=== PATIENT | male | born 1940 | race African-American/Black ===

== ENCOUNTER 2019-09-28 18:50 | Emergency (ER) | payer MEDICARE ==
[2019-09-28 20:09] LABS: Hematocrit 40.4 % (35.5-45.6); Hemoglobin 13.8 gm/dl (11.8-15.2); Mean Corpuscular HGB Conc 34 % (32-34); Mean Corpuscular Volume 84 fl (84-94); Platelet Count 153 K/mm3 (140-440); Red Blood Count 4.83 M/mm3 (3.65-5.03); Red Cell Distribution Width 14.4 % (13.2-15.2)
[2019-09-28 20:25] LABS: BUN/Creatinine Ratio 17; Blood Urea Nitrogen 12 mg/dL (9-20); Calcium 8.9 mg/dL (8.4-10.2); Hemolysis Index 20
[2019-09-28 21:02] LABS: Basophils % (Manual) 0 % (0.0-1.8); RBC Morphology Normal; Total Cells Counted 100
[2019-09-28 21:09] VITALS: BP 221/98
--- NOTE | 2019-09-28 21:09 | Emergency Department Report ---
ED Altered Mental Status HPI - General Chief Complaint: Altered Mental Status Stated Complaint: AMS Time Seen by Provider: 09/28/19 19:24 Source: EMS Mode of arrival: Stretcher Limitations: Altered Mental Status, Other - History of Present Illness Initial Comments: Patient is a 79-year-old gentleman with a history of Alzheimer's who lastly found wandering in the neighborhood by police. Patient had no ID on him at the time and was unable to speak to the police. Patient would not communicate. A [place] roller printing supervisor was attempted and the transverse stated they they could not understand what the patient was saying and status of the patient was is babbling. Patient's cannot give any additional history. - Related Data Allergies Allergy/AdvReac Type Severity Reaction Status Date / Time Unable to Assess Allergy Unverified 09/28/19 19:03 ED Review of Systems ROS: Stated complaint: AMS Other details as noted in HPI Comment: Unobtainable due to pts medical conditions ED Past Medical Hx - Past Medical History Additional medical history: SYDNEE - Surgical History Additional Surgical History: SYDNEE - Social History Smoking Status: Unknown if ever smoked ED Physical Exam - General Limitations: Altered Mental Status, Other General appearance: alert, in no apparent distress - Head Head exam: Present: atraumatic, normocephalic - Eye Eye exam: Present: normal appearance, PERRL, EOMI - ENT ENT exam: Present: mucous membranes moist - Neck Neck exam: Present: normal inspection - Respiratory Respiratory exam: Present: normal lung sounds bilaterally. Absent: respiratory distress, wheezes, rales, rhonchi - Cardiovascular Cardiovascular Exam: Present: regular rate, normal rhythm. Absent: systolic murmur, diastolic murmur, rubs, gallop - GI/Abdominal GI/Abdominal exam: Present: soft, normal bowel sounds. Absent: distended, tenderness, guarding - Rectal Rectal exam: Present: deferred - Extremities Exam Extremities exam: Present: normal inspection - Back Exam Back exam: Present: normal inspection - Neurological Exam Neurological exam: Present: alert, oriented X3, CN II-XII intact, normal gait. Absent: motor sensory deficit - Psychiatric Psychiatric exam: Present: normal affect, normal mood - Skin Skin exam: Present: warm, dry, intact, normal color. Absent: rash - Lab Data Result diagrams: 09/28/19 19:52 09/28/19 19:52 Lab Results 09/28/19 09/28/19 09/28/19 Range/Units 19:52 19:52 19:52 WBC 4.7 (4.5-11.0) K/mm3 RBC 4.83 (3.65-5.03) M/mm3 Hgb 13.8 (11.8-15.2) gm/dl Hct 40.4 (35.5-45.6) % MCV 84 (84-94) fl MCH 29 (28-32) pg MCHC 34 (32-34) % RDW 14.4 (13.2-15.2) % Plt Count 153 (140-440) K/mm3 Baker % (Auto) [place] Fancier Add Manual Diff Complete Total Counted 100 Seg Neuts % (Manual) 51.0 (40.0-70.0) % Band Neutrophils % 0 % Lymphocytes % (Manual) 28.0 (13.4-35.0) % Reactive Lymphs % (Man) 0 % Monocytes % (Manual) 20.0 H (0.0-7.3) % Eosinophils % (Manual) 1.0 (0.0-4.3) % Basophils % (Manual) 0 (0.0-1.8) % Metamyelocytes % 0 % Myelocytes % 0 % Promyelocytes % 0 % Blast Cells % 0 % Nucleated RBC % Not Reportable Seg Neutrophils # Man 2.4 (1.8-7.7) K/mm3 Band Neutrophils # 0.0 K/mm3 Lymphocytes # (Manual) 1.3 (1.2-5.4) K/mm3 Abs React Lymphs (Man) 0.0 K/mm3 Monocytes # (Manual) 0.9 H (0.0-0.8) K/mm3 Eosinophils # (Manual) 0.0 (0.0-0.4) K/mm3 Basophils # (Manual) 0.0 (0.0-0.1) K/mm3 Metamyelocytes # 0.0 K/mm3 Myelocytes # 0.0 K/mm3 Promyelocytes # 0.0 K/mm3 Blast Cells # 0.0 K/mm3 WBC Morphology Not Reportable Hypersegmented Neuts Not Reportable Hyposegmented Neuts Not Reportable Hypogranular Neuts Not Reportable Smudge Cells Not Reportable Toxic Granulation Not Reportable Toxic Vacuolation Not Reportable Dohle Bodies Not Reportable Pelger-Huet Anomaly Not Reportable Daniel Rods Not Reportable Platelet Estimate Not Reportable Clumped Platelets Not Reportable Plt Clumps, EDTA Not Reportable Large Platelets Not Reportable Giant Platelets Not Reportable Platelet Satelliting Not Reportable Plt Morphology Comment Not Reportable RBC Morphology Normal Dimorphic RBCs Not Reportable Polychromasia Not Reportable Hypochromasia Not Reportable Poikilocytosis Not Reportable Anisocytosis Not Reportable Microcytosis Not Reportable Macrocytosis Not Reportable Spherocytes Not Reportable Pappenheimer Bodies Not Reportable Sickle Cells Not Reportable Target Cells Not Reportable Tear Drop Cells Not Reportable Ovalocytes Not Reportable Helmet Cells Not Reportable [place] Bodies Not Reportable [place] Rings Not Reportable [place] Cells Not Reportable Bite Cells Not Reportable Crenated Cell Not Reportable Elliptocytes Not Reportable Acanthocytes (Spur) Not Reportable Rouleaux Not Reportable Hemoglobin C Crystals Not Reportable Schistocytes Not Reportable Malaria parasites Not Reportable Arik Bodies Not Reportable Hem Pathologist Commnt No Sodium 137 (137-145) mmol/L Potassium 3.6 (3.6-5.0) mmol/L Chloride 101.0 (98-107) mmol/L Carbon Dioxide 23 (22-30) mmol/L Anion Gap 17 mmol/L BUN 12 (9-20) mg/dL Creatinine 0.7 L (0.8-1.5) mg/dL Estimated GFR > 60 ml/min BUN/Creatinine Ratio 17 % Glucose 119 H (75-100) mg/dL Calcium 8.9 (8.4-10.2) mg/dL Salicylates < 0.3 L (2.8-20.0) mg/dL Acetaminophen (10.0-30.0) ug/mL Plasma/Serum Alcohol (0-0.07) % 09/28/19 09/28/19 Range/Units 19:52 19:52 WBC (4.5-11.0) K/mm3 RBC (3.65-5.03) M/mm3 Hgb (11.8-15.2) gm/dl Hct (35.5-45.6) % MCV (84-94) fl MCH (28-32) pg MCHC (32-34) % RDW (13.2-15.2) % Plt Count (140-440) K/mm3 Baker % (Auto) Add Manual Diff Total Counted Seg Neuts % (Manual) (40.0-70.0) % Band Neutrophils % % Lymphocytes % (Manual) (13.4-35.0) % Reactive Lymphs % (Man) % Monocytes % (Manual) (0.0-7.3) % Eosinophils % (Manual) (0.0-4.3) % Basophils % (Manual) (0.0-1.8) % Metamyelocytes % % Myelocytes % % Promyelocytes % % Blast Cells % % Nucleated RBC % Seg Neutrophils # Man (1.8-7.7) K/mm3 Band Neutrophils # K/mm3 Lymphocytes # (Manual) (1.2-5.4) K/mm3 Abs React Lymphs (Man) K/mm3 Monocytes # (Manual) (0.0-0.8) K/mm3 Eosinophils # (Manual) (0.0-0.4) K/mm3 Basophils # (Manual) (0.0-0.1) K/mm3 Metamyelocytes # K/mm3 Myelocytes # K/mm3 Promyelocytes # K/mm3 Blast Cells # K/mm3 WBC Morphology Hypersegmented Neuts Hyposegmented Neuts Hypogranular Neuts Smudge Cells Toxic Granulation Toxic Vacuolation Dohle Bodies Pelger-Huet Anomaly Daniel Rods Platelet Estimate Clumped Platelets Plt Clumps, EDTA Large Platelets Giant Platelets Platelet Satelliting Plt Morphology Comment RBC Morphology Dimorphic RBCs Polychromasia Hypochromasia Poikilocytosis Anisocytosis Microcytosis Macrocytosis Spherocytes Pappenheimer Bodies Sickle Cells Target Cells Tear Drop Cells Ovalocytes Helmet Cells [place] Bodies [place] Rings [place] Cells Bite Cells Crenated Cell Elliptocytes Acanthocytes (Spur) Rouleaux Hemoglobin C Crystals Schistocytes Malaria parasites Arik Bodies Hem Pathologist Commnt Sodium (137-145) mmol/L Potassium (3.6-5.0) mmol/L Chloride (98-107) mmol/L Carbon Dioxide (22-30) mmol/L Anion Gap mmol/L BUN (9-20) mg/dL Creatinine (0.8-1.5) mg/dL Estimated GFR ml/min BUN/Creatinine Ratio % Glucose (75-100) mg/dL Calcium (8.4-10.2) mg/dL Salicylates (2.8-20.0) mg/dL Acetaminophen < 5.0 L (10.0-30.0) ug/mL Plasma/Serum Alcohol < 0.01 (0-0.07) % - Medical Decision Making Patient's family called police stated they were looking for a missing persons. A missing person for description of the gentleman was brought in by police to our emergency department. The family arrived and confirmed that they have been looking for the patient for the last 3-4 hours. Patient has severe dementia and had wandered off and was missing. Patient according to family is at his current state of behavior at this time and the patient can be discharged home in the custody of his family. Critical care attestation.: If time is entered above; I have spent that time in minutes in the direct care of this critically ill patient, excluding procedure time. 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
== END 2019-09-28 21:25 | disposition home or self-care (01) ==
LOC: EDBD 18:50 → ED 18:50
DX: G30.9 Alzheimer's disease, unspecified (principal); F02.80 Dementia in other diseases classified elsewhere, unspecified severity, without behavioral disturbance, psychotic disturbance, mood disturbance, and anxiety
CPT/HCPCS: 36415; 80048; 80320; 85007; 85025; G0480

== ENCOUNTER 2021-05-26 16:55 | Inpatient (IN) | payer MEDICARE, SELFPAY ==
[2021-05-26] MEDS ORDERED: MINERAL OIL/PETROLATUM, WHITE OPHTH OINT 3.5 GM OU PRN (17:02)
[2021-05-26] MEDS ORDERED: LIP THERAPY VASELINE TP PRN (17:02)
[2021-05-26] MEDS ORDERED: CEFEPIME/NS 2 GM/100 ML 2 GM/100 ML BAG IV ONE (17:02)
[2021-05-26] MEDS ORDERED: SODIUM CHLORIDE 0.9% 1000 ML IV SOLN IV ONE (17:02)
[2021-05-26] MEDS ORDERED: dexAMETHasone 4 MG/ML VIAL IV ONE (17:07)
--- NOTE | 2021-05-26 17:08 | Emergency Department Report ---
ED General Adult HPI - General Chief complaint: Altered Mental Status Stated complaint: Patient nonverbal, receiving assisted ventilation PUI?: Yes Time Seen by Provider: 05/26/21 17:01 Source: EMS (Verbal report received from emergency medical services. EMS documentation not available at time of chart dictation ), RN notes reviewed, old records reviewed Mode of arrival: Stretcher Limitations: Altered Mental Status, Physical Limitation - History of Present Illness Initial comments: The patient was evaluated in the emergency department for symptoms described in the history of present illness. He/she was evaluated in the context of the global COVID-19 pandemic, which necessitated consideration that the patient might be at risk for infection with the virus that causes COVID-19. Institutional protocols and algorithms that pertain to the evaluation of patients at risk for COVID-19 are in a state of rapid change based on information released by regulatory bodies including the CDC and federal and state organizations. These policies and algorithms were followed during the patient's care in the emergency department. Please note that these policies, procedures and recommendations changed on a rapid basis. The patient is an 81-year-old gentleman. He is not known to myself previously. He apparently has a history of hypertension and dementia. He is brought to the hospital by emergency medical services with a complaint of altered mental status. His last known well time is not explicitly known. EMS reports normal Accu-Chek. EMS reports patient found in bed. EMS reports the patient was minimally responsive in the field, they placed a nasopharyngeal airway, and bag ventilation. Upon arrival to this emergency room, the patient is hypoxic, breathing agonally. He is not accompanied by friends or family for collateral information. EMS also indicated that advanced directives are not known. The patient was placed on a school lunch monitor, IV access established, and simultaneously, receives [id number] ventilation. He is intubated using rapid sequence induction techniques. Please see procedure note. He is found to be febrile with a rectal temperature of 102 degrees and is tachycardic. A code sepsis was called overhead. Aggressive IV fluids, empiric steroids, vancomycin, and cefepime ordered. Nasogastric tube ordered, Cast catheter ordered. The patient is currently intubated, sedated on a ventilator. He is not currently accompanied by friends or family at this time for additional info rmation or collateral information. The patient is acutely altered and encephalopathic, and he is therefore not able to describe the qualitative nature of his symptoms, exacerbating factors, relieving factors, or aggravating factors. -: unknown - Related Data Home Medications Medication Instructions Recorded Confirmed Last Taken No Known Home Medications [No 05/26/21 05/26/21 Unknown Reported Home Medications] Allergies Allergy/AdvReac Type Severity Reaction Status Date / Time No Known Allergies Allergy Unverified 05/26/21 18:11 ED Review of Systems ROS: Stated complaint: RESPIRATORY DISTRESS Other details as noted in HPI Comment: Unobtainable due to pts medical conditions ED Past Medical Hx - Past Medical History Additional medical history: SYDNEE - Surgical History Additional Surgical History: SYDNEE - Social History Smoking Status: Unknown if ever smoked - Medications Home Medications: Home Medications Medication Instructions Recorded Confirmed Last Taken Type No Known Home Medications [No 05/26/21 05/26/21 Unknown History Reported Home Medications] ED Physical Exam - General Limitations: Altered Mental Status General appearance: obtunded - Head Head exam: Present: atraumatic, normocephalic - Eye Eye exam: Present: normal appearance - ENT ENT exam: Present: normal orophraynx, mucous membranes dry, normal external ear exam - Neck Neck exam: Present: normal inspection. Absent: tenderness, meningismus - Respiratory Respiratory exam: Present: respiratory distress, rales - Cardiovascular Cardiovascular Exam: Present: normal rhythm, tachycardia, normal heart sounds. Absent: bradycardia, irregular rhythm, systolic murmur, diastolic murmur, rubs, gallop - GI/Abdominal GI/Abdominal exam: Present: soft. Absent: distended, tenderness, guarding, rebound, rigid, pulsatile mass - Rectal Rectal exam: Present: normal inspection - exam: Present: normal inspection. Absent: circumcision (Patient is uncircumcised) External exam: Present: normal external exam - Extremities Exam Extremities exam: Present: other (2+ femoral pulses bilaterally. 2+ radial pulses bilaterally.). Absent: normal inspection (Bilateral lower extremities show distal mottling) - Back Exam Back exam: Present: normal inspection. Absent: tenderness, CVA tenderness (R), CVA tenderness (L), paraspinal tenderness, vertebral tenderness - Neurological Exam Neurological exam: Present: altered (Nonverbal, GCS of 3) - Skin Skin exam: Present: warm, dry, intact, other (Mottling noted of bilateral lower extremities.) ED Course Vital Signs 05/26/21 05/26/21 05/26/21 17:00 17:10 17:16 Temperature 102.8 F H Pulse Rate 118 H 119 H 117 H Respiratory 20 Rate Blood Pressure 203/95 203/95 Blood Pressure 203/95 [Left] O2 Sat by Pulse 100 100 100 Oximetry 05/26/21 05/26/21 05/26/21 17:30 17:46 18:00 Temperature Pulse Rate 117 H 112 H 111 H Respiratory Rate Blood Pressure 178/91 167/84 158/81 Blood Pressure [Left] O2 Sat by Pulse 100 100 100 Oximetry 05/26/21 05/26/21 05/26/21 19:00 19:16 19:30 Temperature Pulse Rate 108 H 106 H 107 H Respiratory 18 Rate Blood Pressure 160/87 162/84 170/87 Blood Pressure 160/87 [Left] O2 Sat by Pulse 99 99 99 Oximetry 05/26/21 05/26/21 05/26/21 19:39 20:04 20:16 Temperature Pulse Rate 104 H 101 H 104 H Respiratory 12 20 Rate Blood Pressure 170/87 199/90 Blood Pressure [Left] O2 Sat by Pulse 100 100 95 Oximetry 05/26/21 05/26/21 05/26/21 20:30 20:46 20:50 Temperature 98.3 F Pulse Rate 106 H 101 H Respiratory 20 20 Rate Blood Pressure 188/83 170/87 Blood Pressure [Left] O2 Sat by Pulse 95 95 Oximetry 05/26/21 05/26/21 05/26/21 21:00 21:16 21:29 Temperature Pulse Rate 99 H 99 H Respiratory 19 21 18 Rate Blood Pressure 140/82 141/78 Blood Pressure [Left] O2 Sat by Pulse 96 96 Oximetry 05/26/21 05/26/21 05/26/21 21:30 21:46 22:00 Temperature Pulse Rate 100 H 101 H 102 H Respiratory 20 24 24 Rate Blood Pressure 137/80 138/80 139/76 Blood Pressure [Left] O2 Sat by Pulse 96 96 97 Oximetry 05/26/21 22:16 Temperature Pulse Rate 103 H Respiratory 21 Rate Blood Pressure 143/82 Blood Pressure [Left] O2 Sat by Pulse 97 Oximetry - Reevaluation(s) Reevaluation #1: 05/26/21 18:36 Differential diagnosis, including but not limited to: Bacteremia, viremia, pneumonia, urinary tract infection, COVID-19, intra-abdominal infection, toxic encephalopathy, metabolic encephalopathy, multifocal encephalopathy Assessment and plan: 81-year-old gentleman, presenting with altered mental status, requiring intubation, fever, pyuria, hypernatremia, lactic acidosis, thrombocytopenia, renal insufficiency. Maintain patient on ventilator strategy. Decrease FiO2 to 30/40% given initial PaO2 of greater than 400. Aggressive IV fluids for presumed volume depletion, empiric steroids, antibiotics, initiate contact precautions. Admit the patient to the ICU once initial diagnostics have resulted. Obtain CT scan of the brain, chest, abdomen and pelvis. Would not perform spinal tap given thrombocytopenia. Contacted nephrology on-call, Dr. Shin Monzon Have discussed the patient's history, physical, laboratory studies and imaging studies. He will follow in consultation. He will place his own orders for maintenance fluids. Advises no hemodialysis at this time. Contacted critical care physician on-call, Dr. Doug Toro We discussed the patient's history, physical, laboratory studies, pertinent imaging studies, and plan of care. He agrees to placement into the intensive care unit. We will admit this patient to the hospital service once his initial diagnostics have resulted. 05/26/21 18:39 Elevated troponin is likely a type II troponin leak. Laboratory studies were ordered to risk stratify for Covid symptomatology, and cytokine storm. Defer to inpatient team to further manage these once initial diagnostics have resulted. 05/26/21 21:17 Family presented to this emergency room. They state patient received 1 Covid vaccination, and they believe [place], a few months ago. The patient lives by himself and his elderly . Family further reports that last known well time was approximately 3 days ago. Extensive discussion had with family regarding current diagnostics, clinical impression, and overall plan of care. They have articulated understanding. CT scan of the brain negative for acute findings. CT scan chest, abdomen pelvis pending interpretation. 05/26/21 21:59 CT scan of the chest abdomen pelvis suggest pneumonia. No other significant findings noted. This is consistent with overall clinical impression. - Intubation Time Out Performed: No (Emergency situation) Sedative: Etomidate Mg Given: 20 Paralytic: Rocuronium Mg Given: 100 Laryngoscope: fiberoptic video scope Size: 3 Assist Device Used: fiberoptic device ET Tube Size: 7.5 Tube Secured Depth (cm): 22 Tube Secured Location: lips Tube Placement Confirmation: visualized tube passing t, equal breath sounds bilat, no breath sounds over epi, confirmation by capnometr Patient Tolerated Procedure: well Intubation Complications: none ED Medical Decision Making - Lab Data Result diagrams: 05/26/21 17:08 05/26/21 17:08 Vital Signs 05/26/21 05/26/21 05/26/21 17:00 17:10 17:16 Temperature 102.8 F H Pulse Rate 118 H 119 H 117 H Respiratory 20 Rate Blood Pressure 203/95 203/95 Blood Pressure 203/95 [Left] O2 Sat by Pulse 100 100 100 Oximetry 05/26/21 05/26/21 05/26/21 17:30 17:46 18:00 Temperature Pulse Rate 117 H 112 H 111 H Respiratory Rate Blood Pressure 178/91 167/84 158/81 Blood Pressure [Left] O2 Sat by Pulse 100 100 100 Oximetry Labs 05/26/21 05/26/21 05/26/21 17:00 17:08 17:08 WBC 9.8 RBC 4.33 Hgb 11.9 Hct 38.0 MCV 88 MCH 28 MCHC 31 L RDW 16.2 H Plt Count 80 L Lymph % (Auto) 30.3 Coke % (Auto) 6.1 Eos % (Auto) 1.0 Baso % (Auto) 0.5 Lymph # (Auto) 3.0 Coke # (Auto) 0.6 Eos # (Auto) 0.1 Baso # (Auto) 0.1 Seg Neutrophils % 62.1 Seg Neutrophils # 6.1 APTT 42.4 H D-Dimer 8255.81 H ABG pH POC ABG pCO2 POC ABG pO2 POC ABG HCO3 ABG O2 Saturation POC ABG Base Excess ABG Hemoglobin ABG Oxyhemoglobin ABG Methemoglobin ABG Sodium ABG Potassium ABG Glucose Carboxyhemoglobin FiO2 % Sodium Potassium Chloride Carbon Dioxide Anion Gap BUN Creatinine Estimated GFR BUN/Creatinine Ratio Glucose Lactic Acid Calcium Ferritin Total Bilirubin AST ALT Alkaline Phosphatase Ammonia Lactate Dehydrogenase Troponin T C-Reactive Protein Total Protein Albumin Albumin/Globulin Ratio Triglycerides Cholesterol LDL Cholesterol Direct HDL Cholesterol Cholesterol/HDL Ratio TSH Arterial Blood Glucose Urine Color Urine Turbidity Urine pH Ur Specific [place] Urine Protein Urine Glucose (UA) Urine Ketones Urine Blood Urine Nitrite Urine Bilirubin Urine Urobilinogen Ur Leukocyte Esterase Urine WBC (Auto) Urine RBC (Auto) Urine Bacteria (Auto) Salicylates Acetaminophen Blood Type O POSITIVE 05/26/21 05/26/21 05/26/21 17:08 17:08 17:08 WBC RBC Hgb Hct MCV MCH MCHC RDW Plt Count Lymph % (Auto) Coke % (Auto) Eos % (Auto) Baso % (Auto) Lymph # (Auto) [place]ke # (Auto) Eos # (Auto) Baso # (Auto) Seg Neutrophils % Seg Neutrophils # APTT D-Dimer ABG pH POC ABG pCO2 POC ABG pO2 POC ABG HCO3 ABG O2 Saturation POC ABG Base Excess ABG Hemoglobin ABG Oxyhemoglobin ABG Methemoglobin ABG Sodium ABG Potassium ABG Glucose Carboxyhemoglobin FiO2 % Sodium 180 H* Potassium 3.8 Chloride 140 H Carbon Dioxide 21 L Anion Gap 23 BUN 118 H Creatinine 5.4 H Estimated GFR 10 BUN/Creatinine Ratio 22 Glucose 133 H Lactic Acid 3.90 H* Calcium 8.1 L Ferritin 598.3 H Total Bilirubin 0.40 AST 97 H ALT 71 H Alkaline Phosphatase 138 H Ammonia Lactate Dehydrogenase 550 H Troponin T 0.038 H C-Reactive Protein 4.20 H Total Protein 7.0 Albumin 3.3 L Albumin/Globulin Ratio 0.9 Triglycerides 150 H Cholesterol 145 LDL Cholesterol Direct 84 HDL Cholesterol 24 L Cholesterol/HDL Ratio 6.04 TSH Arterial Blood Glucose Urine Color Urine Turbidity Urine pH Ur Specific [place] Urine Protein Urine Glucose (UA) Urine Ketones Urine Blood Urine Nitrite Urine Bilirubin Urine Urobilinogen Ur Leukocyte Esterase Urine WBC (Auto) Urine RBC (Auto) Urine Bacteria (Auto) Salicylates Acetaminophen Blood Type 05/26/21 05/26/21 05/26/21 17:08 17:08 17:08 WBC RBC Hgb Hct MCV MCH MCHC RDW Plt Count Lymph % (Auto) [place] % (Auto) Eos % (Auto) Baso % (Auto) Lymph # (Auto) [place] # (Auto) Eos # (Auto) Baso # (Auto) Seg Neutrophils % Seg Neutrophils # APTT D-Dimer ABG pH POC ABG pCO2 POC ABG pO2 POC ABG HCO3 ABG O2 Saturation POC ABG Base Excess ABG Hemoglobin ABG Oxyhemoglobin ABG Methemoglobin ABG Sodium ABG Potassium ABG Glucose Carboxyhemoglobin FiO2 % Sodium Potassium Chloride Carbon Dioxide Anion Gap BUN Creatinine Estimated GFR BUN/Creatinine Ratio Glucose Lactic Acid Calcium Ferritin Total Bilirubin AST ALT Alkaline Phosphatase Ammonia 46.0 Lactate Dehydrogenase Troponin T C-Reactive Protein Total Protein Albumin Albumin/Globulin Ratio Triglycerides Cholesterol LDL Cholesterol Direct HDL Cholesterol Cholesterol/HDL Ratio TSH 0.342 Arterial Blood Glucose Urine Color Urine Turbidity Urine pH Ur Specific [place] Urine Protein Urine Glucose (UA) Urine Ketones Urine Blood Urine Nitrite Urine Bilirubin Urine Urobilinogen Ur Leukocyte Esterase Urine WBC (Auto) Urine RBC (Auto) Urine Bacteria (Auto) Salicylates Acetaminophen < 5.0 L Blood Type 05/26/21 05/26/21 05/26/21 17:08 17:27 Unknown WBC RBC Hgb Hct MCV MCH MCHC RDW Plt Count Lymph % (Auto) [place] % (Auto) Eos % (Auto) Baso % (Auto) Lymph # (Auto) [place] # (Auto) Eos # (Auto) Baso # (Auto) Seg Neutrophils % Seg Neutrophils # APTT D-Dimer ABG pH 7.322 POC ABG pCO2 40.5 POC ABG pO2 453.5 H POC ABG HCO3 20.5 ABG O2 Saturation 99.2 POC ABG Base Excess -5.2 ABG Hemoglobin 11.5 L ABG Oxyhemoglobin 98.7 H ABG Methemoglobin 0.2 ABG Sodium 198.2 H ABG Potassium 3.6 ABG Glucose 116 H Carboxyhemoglobin 0.3 L FiO2 % 100.0 Sodium Potassium Chloride Carbon Dioxide Anion Gap BUN Creatinine Estimated GFR BUN/Creatinine Ratio Glucose Lactic Acid Calcium Ferritin Total Bilirubin AST ALT Alkaline Phosphatase Ammonia Lactate Dehydrogenase Troponin T C-Reactive Protein Total Protein Albumin Albumin/Globulin Ratio Triglycerides Cholesterol LDL Cholesterol Direct HDL Cholesterol Cholesterol/HDL Ratio TSH Arterial Blood Glucose 116 H Urine Color Yellow Urine Turbidity Clear Urine pH 5.0 Ur Specific [place] 1.011 Urine Protein <15 mg/dl Urine Glucose (UA) Neg Urine Ketones Neg Urine Blood Sm Urine Nitrite Neg Urine Bilirubin Neg Urine Urobilinogen < 2.0 Ur Leukocyte Esterase Neg Urine WBC (Auto) 16.0 H Urine RBC (Auto) 2.0 Urine Bacteria (Auto) 1+ Salicylates < 0.3 L Acetaminophen Blood Type - EKG Data -: EKG Interpreted by Or EKG shows normal: sinus rhythm - EKG Data When compared to previous EKG there are: previous EKG unavailable 05/26/21 18:40 The EKG is interpreted at 17: 18 Sinus rhythm, tachycardia, normal P wave axis, rate 117 bpm, motion artifact, left ventricular hypertrophy, poor R wave progression, QTC prolonged, this is an abnormal EKG. This is not a STEMI. - Radiology Data Radiology results: pending, report reviewed, image reviewed CHEST 1 VIEW 05/26/2021 5:36 PM INDICATION / CLINICAL INFORMATION: sepsis acute resp failure. COMPARISON: None available. FINDINGS: SUPPORT DEVICES: ET tube is satisfactory position above the stacy. NG tube extends within the stomach HEART / MEDIASTINUM: No significant abnormality. LUNGS / PLEURA: Mild increased interstitial prominence in bilateral lungs. Small nodular opacity seen in the right upper lung overlying crossing ribs measuring 8 mm No pneumothorax. ADDITIONAL FINDINGS: No significant additional findings. IMPRESSION: 1. Lines and tubes are satisfactory in position. Tortuosity of the thoracic aorta. 2. Nodular density in the right upper lung measures 8 mm. Follow-up recommended. Signer Name: Aldo River MD Signed: 05/26/2021 4:53 PM Workstation Name: [id number] CT head/brain wo con INDICATION / CLINICAL INFORMATION: 81 years Male; acute ams. TECHNIQUE: Routine CT head without contrast. All CT scans at this location are performed using CT dose reduction for ALARA by means of automated exposure control. COMPARISON: None. FINDINGS: BRAIN / INTRACRANIAL CONTENTS: There is suggestion of an encephalomalacia in the inferior temporal lobe on the right, as well as the anterior temporal lobe-would question prior branch infarct or trauma. Otherwise, no acute hemorrhage, mass effect, midline shift, hydrocephalus, or acute, large territorial infarct. Moderate, diffuse cerebral atrophy. Anterior temporal lobe atrophy is the greatest. Moderate to marked degree of hippocampal atrophy suggested bilaterally. There are moderate, somewhat confluent areas of decreased attenuation in the white matter of the cerebral hemispheres, as well as the gangliocapsular regions. These are nonspecific findings and may be related to microangiopathy (hypertension, diabetes, atherosclerosis), given the patient's age. It might be difficult to evaluate for small areas of ischemia without diffusion imaging by MRI. CRANIOCERVICAL JUNCTION: No significant abnormality. ORBITS: No significant abnormality of visualized orbits. SINUSES / MASTOIDS: Mild to moderate mucosal thickening in the ethmoids. Prior mastoidectomy noted on the right. ADDITIONAL FINDINGS: Atherosclerotic disease is seen in the anterior and posterior circulation. IMPRESSION: 1. No focal mass, hemorrhage, hydrocephalus, or acute, large territorial infarct. Signer Name: Jaydon Tripathi MD, III Signed: 05/26/2021 7:52 PM Workstation Name: [id number] CT CHEST, ABDOMEN AND PELVIS WITHOUT IV CONTRAST INDICATION: Sepsis. Renal failure. TECHNIQUE: Multiple axial CT images of the chest, abdomen and pelvis were acquired. Sagittal and coronal reformats were obtained. All CT performed at this facility utilize dose reduction techniques including automated exposure control, iterative reconstruction and weight based dosing when appropriate to reduce patient radiation dose to as low as reasonably achievable. COMPARISON: No cross-sectional imaging is available for comparison FINDINGS: CHEST: An endotracheal tube is present with tip approximately 3 cm above the level the ca alexandre. An esophagogastric tube is present with tip located in the stomach the heart is normal in size. There is dense atherosclerotic calcification along the thoracic aorta and within the distribution of the coronary vessels. Evaluation of the lung parenchyma demonstrates scattered patchy ill-defined densities within the mid and lower lung zone. Abdomen: The liver, gallbladder, spleen, pancreas, bilateral adrenal glands and bilateral kidneys show no definitive evidence of acute abnormality. There is mild prominence of both ureters. There is dense atherosclerotic calcification along the abdominal aorta without evidence for aneurysm. There is no evidence of bowel obstruction or free fluid. The appendix is visualized and appears normal. Pelvis: A Cast catheter is present within the urinary bladder. Bones and Soft Tissues: Evaluation of bony structures demonstrates moderate bony degenerative changes throughout the spine. IMPRESSION: 1. Faint bilateral patchy pulmonary opacities suggestive of infectious process such as pneumonia. Signer Name: Haley White MD Signed: 05/26/2021 8:38 PM Workstation Name: [id number] Critical Care Time: Yes Critical care time in (mins) excluding proc time.: 65 Critical care attestation.: If time is entered above; I have spent that time in minutes in the direct care of this critically ill patient, excluding procedure time. ED Disposition Clinical Impression: Acute respiratory failure, Acute encephalopathy, Suspected 2019 novel coronavirus infection, Thrombocytopenia, Renal insufficiency, Hypernatremia, Acute dehydration Sepsis Qualifiers: Severe sepsis shock status: with septic shock Urinary tract infection Qualifiers: Encounter type: initial encounter Disposition: OP ADMIT IP TO THIS HOSP Is pt being admited?: Yes Does the pt Need Aspirin: No Condition: Critical
[2021-05-26 17:22] LABS: Basophils # (Auto) 0.1 K/mm3 (0.0-0.1); Basophils % (Auto) 0.5 % (0.0-1.8); Eosinophils # (Auto) 0.1 K/mm3 (0.0-0.4); Hemoglobin 11.9 gm/dl (11.8-15.2); Lymphocytes % (Auto) 30.3 % (13.4-35.0); Mean Corpuscular HGB Conc 31 % (32-34); Mean Corpuscular Volume 88 fl (84-94); Monocytes # (Auto) 0.6 K/mm3 (0.0-0.8); Monocytes % (Auto) 6.1 % (0.0-7.3); Red Blood Count 4.33 M/mm3 (3.65-5.03); Red Cell Distribution Width 16.2 % (13.2-15.2)
[2021-05-26 17:39] LABS: Platelet Count 80 K/mm3 (140-440)
[2021-05-26 17:40] LABS: Bacteria,Urine 1+ /HPF (Negative); Bilirubin,Urine NEG (Negative); Blood,Urine SM (Negative); Color,Urine Yellow (Yellow); Protein,Urine <15 mg/dL mg/dL (Negative); Urobilinogen,Urine < 2.0 mg/dL (<2.0)
[2021-05-26 17:43] LABS: Albumin 3.3 g/dL (3.9-5); C-Reactive Protein 4.2 mg/dL (0.00-1.30); Calcium 8.1 mg/dL (8.4-10.2)
[2021-05-26 17:47] LABS: Partial Thromboplastin Time 42.4 Sec. (24.2-36.6)
--- NOTE | 2021-05-26 17:58 | XRay Report ---
CHEST 1 VIEW 05/26/2021 5:36 PM INDICATION / CLINICAL INFORMATION: sepsis acute resp failure. COMPARISON: None available. FINDINGS: SUPPORT DEVICES: ET tube is satisfactory position above the stacy. NG tube extends within the stomac h HEART / MEDIASTINUM: No significant abnormality. LUNGS / PLEURA: Mild increased interstitial prominence in bilateral lungs. Small nodular opacity seen in the right upper lung overlying crossing ribs measuring 8 mm No pneumothorax. ADDITIONAL FINDINGS: No significant additional findings. IMPRESSION: 1. Lines and tubes are satisfactory in position. Tortuosity of the thoracic aorta. 2. Nodular density in the right upper lung measures 8 mm. Follow-up recommended. Signer Name: Aldo River MD Signed: 05/26/2021 5:53 PM Workstation Name: [email or web address]
[2021-05-26] MEDS ORDERED: fentaNYL DRIP Premix 2,000 MCG/100 ML BAG IV SCH (18:00)
[2021-05-26] MEDS ORDERED: VANCOMYCIN PHARMACY TO DOSE IV SCH (18:00)
[2021-05-26] MEDS ORDERED: VANCOMYCIN 1,500 MG in SODIUM CHLORIDE 0.9% 500 ML 500 ML IV ONE (18:02)
[2021-05-26 18:05] LABS: Chol/HDL Ratio 6.04 %
--- NOTE | 2021-05-26 18:12 | History and Physical Report ---
History of Present Illness Chief complaint: Unresponsive History of present illness: 81 YO Male with HTN, Dementia presents to ED for evaluation. Patient is intubated and on ventilatory support at the time my evaluation is unable to provide history. Patient history taken from EMS staff, ED staff, as well as patient family who was made available by telephone. As per family the patient was found to have decreased responsiveness today. EMS was notified and upon arrival the patient was found to be in distress with decreased responsiveness. The patient was treated with nasopharyngeal intubation and subsequently transported to [facility] for further care and evaluation of the aforementioned symptoms. The patient was seen and evaluated in the emergency department. All lab and imaging studies reviewed. The patient was found to have a temperature of 102.5 F as well as agonal breathing. The patient was subsequently intubated and placed on ventilatory support. The patient was found to have sepsis, right upper lobe pneumonia, acute hypoxemic respiratory failure suspected secondary to coronavirus infection, hyponatremia, volume depletion, urinary tract infection, as well as toxic metabolic encephalopathy, as well as acute kidney injury with acute tubular necrosis. 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 The patient was admitted to ICU and initiated on sepsis protocol as well as coronavirus protocol. Critical care team consulted in ED. Nephrology team consulted in ED. No further history is obtainable. No prior admission for review. No medication listed at time of admission for reconciliation. Advanced care planning conducted in ED. Past History Past Medical History: hypertension, other (See HPI) Past Surgical History: No surgical history, Other (Unable to obtain) Social history: no significant social history, other (Unable to obtain) Family history: no significant family history, other (Unable to obtain) Medications and Allergies Allergies Allergy/AdvReac Type Severity Reaction Status Date / Time No Known Allergies Allergy Unverified 05/26/21 18:11 Active Meds: Active Medications Famotidine (Famotidine 20 Mg/2 Ml Inj) 20 mg IV BID ONDINA Fentanyl (Fentanyl 100 Mcg/2 Ml Inj) 50 mcg IV Q10MIN PRN PRN Reason: ANALGESIA Hydrophilic Ointment (Lip Therapy Vaseline) 1 applic TP Q2HR PRN PRN Reason: Dry Lips Vancomycin HCl 1,500 mg/ (Sodium Chloride) 530 mls @ 333 mls/hr IV ONCE ONE; Protocol Stop: 05/26/21 19:37 Fentanyl Citrate (Fentanyl Drip Premix) 2,000 mcg in 100 mls @ 0 mls/hr IV TITR ONDINA; Protocol Multi-Ingred Cream/Lotion/Oil/Oint (Mineral Oil/Petrolatum, White Ophth Oint 3.5 Gm) 1 applic OU Q4HR PRN PRN Reason: Dry Eye(s) Senna/Docusate Sodium (Sennosides/Docusate Sodium 8.6/50 Mg Tab) 1 tab FEEDTUBE BID ONDINA Review of Systems ROS unobtainable: due to endotracheal tube, due to mental status Exam - Constitutional Vitals: Temp Pulse Resp BP Pulse Ox 102.8 F H 118 H 20 203/95 100 05/26/21 17:00 05/26/21 17:00 05/26/21 17:00 05/26/21 17:00 05/26/21 17:00 General appearance: Present: severe distress - EENT Eyes: Present: miosis ENT: hearing decreased - Neck Neck: Present: supple, normal ROM - Respiratory Respiratory effort: labored Respiratory: bilateral: diminished, rhonchi - Cardiovascular Rhythm: other (Tachycardia) Peripheral Pulses: abnormal (Capillary refill greater than 3.5 seconds) - Abdominal General gastrointestinal: Present: soft, non-tender, non-distended - Integumentary Integumentary: Present: dry, clammy, decreased turgor - Musculoskeletal Musculoskeletal: generalized weakness - Psychiatric Psychiatric: no appropriate mood/affect, no intact judgment & insight, no memory intact - Neurologic Neurologic: CNII-XII intact, no focal deficits, moves all extremities, no gait normal HEART Score - HEART Score Troponin: Troponin T 0.038 ng/mL (0.00-0.029) H 05/26/21 17:08 Results - Labs CBC & Chem 7: 05/26/21 17:08 05/26/21 17:08 Labs: Abnormal lab results 05/26/21 05/26/21 05/26/21 Range/Units 17:08 17:08 17:08 MCHC 31 L (32-34) % RDW 16.2 H (13.2-15.2) % Plt Count 80 L (140-440) K/mm3 APTT 42.4 H (24.2-36.6) Sec. D-Dimer 8255.81 H (0-234) ng/mlDDU POC ABG pO2 (83-108) mmHg ABG Hemoglobin (12.0-17.5) ABG Oxyhemoglobin (94-98) ABG Sodium (136.0-145.0) mmol/L ABG Glucose (65-95) mg/dL Carboxyhemoglobin (0.5-1.5) Carbon Dioxide 21 L (22-30) mmol/L BUN 118 H (9-20) mg/dL Creatinine 5.4 H (0.8-1.3) mg/dL Glucose 133 H (75-100) mg/dL Lactic Acid (0.7-2.0) mmol/L Calcium 8.1 L (8.4-10.2) mg/dL Ferritin (30.0-300.0) ng/mL AST 97 H (5-40) units/L ALT 71 H (7-56) units/L Alkaline Phosphatase 138 H (35-129) units/L Lactate Dehydrogenase 550 H (91-180) units/L Troponin T 0.038 H (0.00-0.029) ng/mL C-Reactive Protein 4.20 H (0.00-1.30) mg/dL Albumin 3.3 L (3.9-5) g/dL Triglycerides 150 H (2-149) mg/dL HDL Cholesterol 24 L (40-59) mg/dL Arterial Blood Glucose (65-95) mg/dL Urine WBC (Auto) (0.0-6.0) /HPF Salicylates (2.8-20.0) mg/dL Acetaminophen (10.0-30.0) ug/mL 05/26/21 05/26/21 05/26/21 Range/Units 17:08 17:08 17:08 MCHC (32-34) % RDW (13.2-15.2) % Plt Count (140-440) K/mm3 APTT (24.2-36.6) Sec. D-Dimer (0-234) ng/mlDDU POC ABG pO2 (83-108) mmHg ABG Hemoglobin (12.0-17.5) ABG Oxyhemoglobin (94-98) ABG Sodium (136.0-145.0) mmol/L ABG Glucose (65-95) mg/dL Carboxyhemoglobin (0.5-1.5) Carbon Dioxide (22-30) mmol/L BUN (9-20) mg/dL Creatinine (0.8-1.3) mg/dL Glucose (75-100) mg/dL Lactic Acid 3.90 H* (0.7-2.0) mmol/L Calcium (8.4-10.2) mg/dL Ferritin 598.3 H (30.0-300.0) ng/mL AST (5-40) units/L ALT (7-56) units/L Alkaline Phosphatase (35-129) units/L Lactate Dehydrogenase (91-180) units/L Troponin T (0.00-0.029) ng/mL C-Reactive Protein (0.00-1.30) mg/dL Albumin (3.9-5) g/dL Triglycerides (2-149) mg/dL HDL Cholesterol (40-59) mg/dL Arterial Blood Glucose (65-95) mg/dL Urine WBC (Auto) (0.0-6.0) /HPF Salicylates (2.8-20.0) mg/dL Acetaminophen < 5.0 L (10.0-30.0) ug/mL 05/26/21 05/26/21 05/26/21 Range/Units 17:08 17:27 Unknown MCHC (32-34) % RDW (13.2-15.2) % Plt Count (140-440) K/mm3 APTT (24.2-36.6) Sec. D-Dimer (0-234) ng/mlDDU POC ABG pO2 453.5 H (83-108) mmHg ABG Hemoglobin 11.5 L (12.0-17.5) ABG Oxyhemoglobin 98.7 H (94-98) ABG Sodium 198.2 H (136.0-145.0) mmol/L ABG Glucose 116 H (65-95) mg/dL Carboxyhemoglobin 0.3 L (0.5-1.5) Carbon Dioxide (22-30) mmol/L BUN (9-20) mg/dL Creatinine (0.8-1.3) mg/dL Glucose (75-100) mg/dL Lactic Acid (0.7-2.0) mmol/L Calcium (8.4-10.2) mg/dL Ferritin (30.0-300.0) ng/mL AST (5-40) units/L ALT (7-56) units/L Alkaline Phosphatase (35-129) units/L Lactate Dehydrogenase (91-180) units/L Troponin T (0.00-0.029) ng/mL C-Reactive Protein (0.00-1.30) mg/dL Albumin (3.9-5) g/dL Triglycerides (2-149) mg/dL HDL Cholesterol (40-59) mg/dL Arterial Blood Glucose 116 H (65-95) mg/dL Urine WBC (Auto) 16.0 H (0.0-6.0) /HPF Salicylates < 0.3 L (2.8-20.0) mg/dL Acetaminophen (10.0-30.0) ug/mL Assessment and Plan - Patient Problems (1) Sepsis Current Visit: Yes Status: Acute Qualifiers: Severe sepsis shock status: with septic shock Plan to address problem: Sepsis protocol: CBC, CMP, chest x-ray, urinalysis, IV fluid resuscitation therapy, monitor urine output every shift, maintain mean arterial pressure great er than or equal to 65, serial lactic acid level, The high probability of a clinically significant, sudden or life threatening deterioration of the [cardiac, neuro, renal, ID, respiratory] system(s) required my full and direct attention, intervention and personal management. The aggregate critical care time was [95] minutes. This time is in addition to time spent performing reported procedures but includes the following: [x] Data Review and interpretation [x] Patient assessment and monitoring of vital signs [x] Documentation [x] Medication orders and management (2) Acute hypoxemic respiratory failure Current Visit: Yes Status: Acute Plan to address problem: Patient intubated and ambulatory support. Wean vent as tolerated, sedation holiday, daily ABG, spontaneous breathing trial daily, daily chest x-ray. (3) Suspected 2019-nCoV infection Current Visit: Yes Status: Acute Plan to address problem: Coronavirus protocol: IV antibiotic therapy, IV steroid therapy, vitamin C therapy, vitamin D therapy, zinc therapy, (4) Acute kidney injury (SIXTO) with acute tubular necrosis (ATN) Current Visit: Yes Status: Acute Plan to address problem: IV fluid resuscitation therapy, BMP, repeat BMP in a.m., supportive care. Nephrology team consulted. (5) Hypernatremia Current Visit: Yes Status: Acute Plan to address problem: IV fluid resuscitation therapy, repeat BMP, repeat BMP in a.m. nephrology team consulted (6) Pneumonia Current Visit: Yes Status: Acute Plan to address problem: Pneumonia protocol: Chest x-ray, CBC, CMP, IV antibiotic therapy, supplemental oxygen, pulse oximetry, (7) UTI (urinary tract infection) Current Visit: Yes Status: Acute Qualifiers: Encounter type: initial encounter Plan to address problem: CBC, CMP, IV antibiotic therapy, blood culture. (8) DVT prophylaxis Current Visit: Yes Status: Acute Plan to address problem: SCD to bilateral lower extremities while in bed, prophylactic anticoagulation (9) Advance care planning Current Visit: Yes Status: Acute Plan to address problem: Disease education conducted, care plan discussed, diagnosis discussed, prognosis discussed, patient is full code, patient family knowledges understanding and agree with care plan as well as poor prognosis. +30 minutes.
[2021-05-26] MEDS ORDERED: ACETAMINOPHEN 650 MG RECT SUPP PR ONE (18:30)
[2021-05-26] MEDS ORDERED: ALBUTEROL 2.5 MG/3 ML NEBU IH PRN (18:34)
[2021-05-26] MEDS ORDERED: ACETAMINOPHEN 650 MG RECT SUPP PR PRN (18:34)
[2021-05-26] MEDS ORDERED: oxyCODONE /ACETAMINOPHEN 5-325MG TAB PO PRN (18:34)
[2021-05-26] MEDS ORDERED: MORPHINE 4 MG/1 ML INJ IV PRN (18:34)
[2021-05-26] MEDS ORDERED: HYDROmorphone 1 MG/1 ML INJ IV PRN (18:37)
[2021-05-26] MEDS ORDERED: ACETAMINOPHEN 325 MG TAB PO PRN (18:37)
[2021-05-26] MEDS ORDERED: CEFEPIME/NS 2 GM/100 ML 2 GM/100 ML BAG IV SCH (19:00)
[2021-05-26 19:57] LABS: Creatinine,Urine 51.6 mg/dL (0.1-20.0)
[2021-05-26] MEDS: methylPREDNISolone Sod Succinate 40 MG/1 ML INJ IV SCH (20:23)
--- NOTE | 2021-05-26 20:56 | Cat Scan Report ---
. CT head/brain wo con INDICATION / CLINICAL INFORMATION: 81 years Male; acute ams. TECHNIQUE: Routine CT head without contrast. All CT scans at this location are performed using CT dos e reduction for ALARA by means of automated exposure control. COMPARISON: None. FINDINGS: BRAIN / INTRACRANIAL CONTENTS: There is suggestion of an encephalomalacia in the inferior temporal lo be on the right, as well as the anterior temporal lobe-would question prior branch infarct or trauma. Otherwise, no acute hemorrhage, mass effect, midline shift, hydrocephalus, or acute, large territori al infarct. Moderate, diffuse cerebral atrophy. Anterior temporal lobe atrophy is the greatest. Moderate to marke d degree of hippocampal atrophy suggested bilaterally. There are moderate, somewhat confluent areas of decreased attenuation in the white matter of the cere bral hemispheres, as well as the gangliocapsular regions. These are nonspecific findings and may be r elated to microangiopathy (hypertension, diabetes, atherosclerosis), given the patient's age. It migh t be difficult to evaluate for small areas of ischemia without diffusion imaging by MRI. CRANIOCERVICAL JUNCTION: No significant abnormality. ORBITS: No significant abnormality of visualized orbits. SINUSES / MASTOIDS: Mild to moderate mucosal thickening in the ethmoids. Prior mastoidectomy noted on the right. ADDITIONAL FINDINGS: Atherosclerotic disease is seen in the anterior and posterior circulation. IMPRESSION: 1. No focal mass, hemorrhage, hydrocephalus, or acute, large territorial infarct. Signer Name: Jaydon Tripathi MD, III Signed: 05/26/2021 8:52 PM Workstation Name: [id number]
--- NOTE | 2021-05-26 21:42 | Progress Note ---
Assessment and Plan 1. Acute kidney injury: Vasomotor SIXTO in the volume depletion / dehydration. Urine studies and CT abdomen ordered. Creatinine level was normal in 2019. IV fluids. Monitor renal function. Renal prognosis is guarded. Avoid nephrotoxic agents. Meds dosage based on GFR. Monitor for ASSISTANT DIRECTOR needs. 2. FEN: Hypernatremia, started on IV D5W. Metabolic acidosis, monitor. Lactic acidosis. Monitor lytes. 3. Acute respiratory failure with hypoxia: 2/2 PNA. Intubated, on vent. 4. Pneumonia, POA: Abx. Follow cultures. 5. Elevated Troponin: Monitor. 6. Hypertension: Monitor BP. Meds as appropriate. 7. Acute metabolic Encephalopathy, POA: Monitor. 8. COVID PUI. Prognosis guarded. Subjective: Patient was not examined today. However the examination findings from other providers noted. The current and previous medical records are reviewed in detail as are laboratory and imaging data reviewed when appropriate. Medications being given are also reviewed. In addition the case has been discussed with the attending hospitalist and the nurse when needed. New renal recommendations as above. Examination: Subjective Date of service: 05/26/21 Interval history: The patient is a 81 YO Male with history significant for HTN and Dementia who presented to [facility] ED 05/26 with AMS. Per family the patient was found to have decreased responsiveness today. The patient was placed a nasopharyngeal airway and bag ventilation by EMS. Upon arrival to this emergency room, the patient is hypoxic and breathing agonally. The patient was placed on a dimension specification inspector, IV access established, and simultaneously, receives [id number] ventilation. He was intubated using rapid sequence induction techniques. He was found to have a rectal temperature of 102 degrees and tachycardic. A code sepsis was called overhead. He was given aggressive IV fluids, empiric steroids, vancomycin, and cefepime ordered. Nasogastric tube and Cast catheter ordered. Labs significant for Sodium 180, Creat 5.4, BUN 115 and Lactate 3.9. The patient was admitted to ICU. Nephrology was consulted for further evaluation of SIXTO and hyperantremia. Objective - Vital Signs Vital signs: Vital Signs - 12hr 05/26/21 05/26/21 05/26/21 17:00 17:10 17:16 Temperature 102.8 F H Pulse Rate 118 H 119 H 117 H Respiratory 20 Rate Blood Pressure 203/95 203/95 Blood Pressure 203/95 [Left] O2 Sat by Pulse 100 100 100 Oximetry 05/26/21 05/26/21 05/26/21 17:30 17:46 18:00 Temperature Pulse Rate 117 H 112 H 111 H Respiratory Rate Blood Pressure 178/91 167/84 158/81 Blood Pressure [Left] O2 Sat by Pulse 100 100 100 Oximetry 05/26/21 05/26/21 05/26/21 19:00 19:16 19:30 Temperature Pulse Rate 108 H 106 H 105 H Respiratory Rate Blood Pressure 160/87 162/84 170/87 Blood Pressure [Left] O2 Sat by Pulse 99 99 100 Oximetry 05/26/21 05/26/21 05/26/21 19:39 20:04 20:16 Temperature Pulse Rate 104 H 101 H 104 H Respiratory 12 20 Rate Blood Pressure 170/87 199/90 Blood Pressure [Left] O2 Sat by Pulse 100 100 95 Oximetry 05/26/21 20:30 Temperature Pulse Rate 106 H Respiratory 20 Rate Blood Pressure 188/83 Blood Pressure [Left] O2 Sat by Pulse 95 Oximetry - Lab 05/26/21 17:08 05/26/21 17:08 Most recent lab results ABG pH 7.322 (7.320-7.450) 05/26/21 17:27 ABG O2 Saturation 99.2 (0-100) 05/26/21 17:27 Calcium 8.1 mg/dL (8.4-10.2) L 05/26/21 17:08 Urine Creatinine 51.6 mg/dL (0.1-20.0) H 05/26/21 Unknown Urine Sodium 96 mmol/L 05/26/21 Unknown Medications & Allergies - Medications Allergies/Adverse Reactions: Allergies No Known Allergies Allergy (Unverified 05/26/21 18:11) Active Medications: Generic Name Dose Route Start Last Admin Trade Name Freq PRN Reason Stop Dose Admin Acetaminophen 650 mg 05/26/21 18:34 Acetaminophen 650 Mg Rect Supp AR Q6H PRN Pain MILD(1-3)/Fever >100.5/JONES Albuterol 2.5 mg 05/26/21 18:34 Albuterol 2.5 Mg/3 Ml Nebu IH Q3HRT PRN Shortness Of Breath Ascorbic Acid 500 mg 05/26/21 22:00 Ascorbic Acid 500 Mg Tab PO BID ONDINA Cholecalciferol 1,000 unit 05/27/21 10:00 Cholecalciferol (Vit D3) 1000 Unit (25 Mcg) Tab PO QDAY ONDINA Famotidine 20 mg 05/26/21 22:00 Famotidine 20 Mg/2 Ml Inj IV BID [facility] Fentanyl 50 mcg 05/26/21 17:02 Fentanyl 100 Mcg/2 Ml Inj IV Q10MIN PRN ANALGESIA Heparin Sodium (Porcine) 5,000 unit 05/26/21 22:00 Heparin 5,000 Unit/1 Ml Vial SUB-Q Q12HR [facility] Hydromorphone HCl 0.25 mg 05/26/21 18:37 Hydromorphone 1 Mg/1 Ml Inj IV Q4H PRN Pain, Moderate (4-6) Hydrophilic Ointment 1 applic 05/26/21 17:02 Lip Therapy Vaseline TP Q2HR PRN Dry Lips Fentanyl Citrate 2,000 mcg in 100 mls @ 2.268 mls/hr 05/26/21 18:00 Fentanyl Drip Premix IV TITR ONDINA Protocol 1 MCG/KG/HR Dextrose 1,000 mls @ 75 mls/hr 05/26/21 19:00 D5w IV DIRECT [facility] Cefepime HCl 1 gm in 100 mls @ 200 mls/hr 05/27/21 18:00 Cefepime/Ns 1 Gm/100 Ml IV POSTHD [facility] Protocol Methylprednisolone Sodium Succinate 40 mg 05/26/21 20:00 05/26/21 20:23 Methylprednisolone Sod Succinate 40 Mg/1 Ml Inj IV 40 mg Q8H ONDINA Administration Morphine Sulfate 1 mg 05/26/21 18:34 Morphine 4 Mg/1 Ml Inj IV Q8H PRN Pain , Severe (7-10) Multi-Ingred Cream/Lotion/Oil/Oint 1 applic 05/26/21 17:02 Mineral Oil/Petrolatum, White Ophth Oint 3.5 Gm OU Q4HR PRN Dry Eye(s) Oxycodone/Acetaminophen 1 tab 05/26/21 18:34 Oxycodone /Acetaminophen 5-325mg Tab PO Q6H PRN Pain, Moderate (4-6) Senna/Docusate Sodium 1 tab 05/26/21 22:00 Sennosides/Docusate Sodium 8.6/50 Mg Tab FEEDTUBE BID [facility] Sodium Chloride 10 ml 05/26/21 22:00 Sodium Chloride 0.9% 10 Ml Flush Syringe IV BID ONDINA Sodium Chloride 10 ml 05/26/21 18:34 Sodium Chloride 0.9% 10 Ml Flush Syringe IV PRN PRN LINE FLUSH Zinc Sulfate 220 mg 05/26/21 22:00 Zinc Sulfate 220 Mg Cap PO BID ONDINA
--- NOTE | 2021-05-26 21:43 | Cat Scan Report ---
CT CHEST, ABDOMEN AND PELVIS WITHOUT IV CONTRAST INDICATION: Sepsis. Renal failure. TECHNIQUE: Multiple axial CT images of the chest, abdomen and pelvis were acquired. Sagittal and travis nal reformats were obtained. All CT performed at this facility utilize dose reduction techniques inc luding automated exposure control, iterative reconstruction and weight based dosing when appropriate to reduce patient radiation dose to as low as reasonably achievable. COMPARISON: No cross-sectional imaging is available for comparison FINDINGS: CHEST: An endotracheal tube is present with tip approximately 3 cm above the level the stacy. An eso phagogastric tube is present with tip located in the stomach the heart is normal in size. There is de nse atherosclerotic calcification along the thoracic aorta and within the distribution of the coronar y vessels. Evaluation of the lung parenchyma demonstrates scattered patchy ill-defined densities with in the mid and lower lung zone. Abdomen: The liver, gallbladder, spleen, pancreas, bilateral adrenal glands and bilateral kidneys isis w no definitive evidence of acute abnormality. There is mild prominence of both ureters. There is den se atherosclerotic calcification along the abdominal aorta without evidence for aneurysm. There is no evidence of bowel obstruction or free fluid. The appendix is visualized and appears normal. Pelvis: A Cast catheter is present within the urinary bladder. Bones and Soft Tissues: Evaluation of bony structures demonstrates moderate bony degenerative changes throughout the spine. IMPRESSION: 1. Faint bilateral patchy pulmonary opacities suggestive of infectious process such as pneumonia. Signer Name: Haley White MD Signed: 05/26/2021 9:38 PM Workstation Name: [id number]
[2021-05-26] MEDS: HEPARIN 5,000 UNIT/1 ML VIAL SUB-Q SCH (21:56)
[2021-05-26] MEDS: DEXTROSE 5% IN WATER 1,000 ML IV SCH (21:56)
[2021-05-26] MEDS ORDERED: FAMOTIDINE 20 MG/2 ML INJ IV SCH (22:00)
[2021-05-26] MEDS: ASCORBIC ACID 500 MG TAB PO SCH (22:52)
[2021-05-26] MEDS: SENNOSIDES/DOCUSATE SODIUM 8.6/50 MG TAB FEEDTUBE SCH (22:52)
[2021-05-26] MEDS: ZINC SULFATE 220 MG CAP PO SCH (22:53)
[2021-05-27 02:21] LABS: Hematocrit 35.6 % (35.5-45.6); Hemoglobin 11.1 gm/dl (11.8-15.2); Mean Corpuscular HGB Conc 31 % (32-34); Mean Corpuscular Volume 87 fl (84-94); Red Cell Distribution Width 16.1 % (13.2-15.2)
[2021-05-27 02:23] LABS: Platelet Count 62 K/mm3 (140-440)
[2021-05-27 02:34] LABS: Albumin 2.9 g/dL (3.9-5)
[2021-05-27 03:08] LABS: Total Cells Counted 100
[2021-05-27 03:09] LABS: RBC Morphology Normal
--- NOTE | 2021-05-27 03:49 | XRay Report ---
XR chest 1V ap INDICATION / CLINICAL INFORMATION: follow up respiratory failure. COMPARISON: Radiograph from yesterday. FINDINGS: SUPPORT DEVICES: Unchanged. HEART / MEDIASTINUM: Unchanged. LUNGS / PLEURA: Lung parenchyma is not significantly changed. No pneumothorax. No effusion. ADDITIONAL FINDINGS: No significant additional findings. IMPRESSION: 1. No significant interval change. Signer Name: Willy Gómez MD Signed: 05/27/2021 3:45 AM Workstation Name: [id number]
[2021-05-27] MEDS: methylPREDNISolone Sod Succinate 40 MG/1 ML INJ IV SCH ×2 (04:55→12:31)
[2021-05-27] MEDS ORDERED: ROCURONIUM 50 MG/5 ML INJ IV ONE (05:16)
[2021-05-27] MEDS ORDERED: ETOMIDATE 20 MG/10 ML INJ IV ONE (05:16)
[2021-05-27 09:26] LABS: Blood Urea Nitrogen 103 mg/dL (9-20); Calcium 7.3 mg/dL (8.4-10.2); Hemolysis Index 5
[2021-05-27 09:54] LABS: BUN/Creatinine Ratio 25
[2021-05-27] MEDS: SENNOSIDES/DOCUSATE SODIUM 8.6/50 MG TAB FEEDTUBE SCH ×2 (09:54→21:37)
[2021-05-27] MEDS: CHOLECALCIFEROL (VIT D3) 1000 UNIT (25 mcg) TAB PO SCH (09:54)
[2021-05-27] MEDS: ZINC SULFATE 220 MG CAP PO SCH ×2 (09:58→21:37)
[2021-05-27] MEDS: HEPARIN 5,000 UNIT/1 ML VIAL SUB-Q SCH ×2 (09:58→21:37)
[2021-05-27] MEDS: ASCORBIC ACID 500 MG TAB PO SCH ×2 (09:59→21:37)
[2021-05-27] MEDS ORDERED: FAMOTIDINE 20 MG/2 ML INJ IV SCH (10:00)
--- NOTE | 2021-05-27 10:17 | Consultation ---
History of Present Illness - Reason for Consult Consult date: 05/27/21 acute renal failure, hypernatremia - History of Present Illness The patient is a 81 YO Male with history significant for HTN and Dementia who presented to [facility] ED 05/26 with AMS. Per family the patient was found to have decreased responsiveness yesterday. The patient was placed a nasopharyngeal airway and bag ventilation by EMS. Upon arrival to the emergency room, the patient was hypoxic with agonal breathing. The patient was placed on a quality assurance monitor, IV access established, and simultaneously, received [id number] ventilation. He was intubated using rapid sequence induction techniques. He was found to have a rectal temperature of 102 F and tachycardic. A code sepsis was called overhead. He was given aggressive IV fluids, empiric steroids, vancomycin, and cefepime ordered. Nasogastric tube and Cast catheter ordered. Labs significant for Sodium 180, Creat 5.4, BUN 115 and Lactate 3.9. The patient was admitted to ICU. Nephrology was consulted for further evaluation of SIXTO and hypernatremia. Past History Past Medical History: hypertension, other (See HPI) Past Surgical History: No surgical history, Other (Unable to obtain) Social history: no significant social history, other (Unable to obtain) Family history: no significant family history, other (Unable to obtain) Medications and Allergies Allergies Allergy/AdvReac Type Severity Reaction Status Date / Time No Known Allergies Allergy Unverified 05/26/21 18:11 Home Medications Medication Instructions Recorded Confirmed Last Taken Type No Known Home Medications [No 05/26/21 05/26/21 Unknown History Reported Home Medications] Active Meds: Active Medications Acetaminophen (Acetaminophen 650 Mg Rect Supp) 650 mg MA Q6H PRN PRN Reason: Pain MILD(1-3)/Fever >100.5/JONES Albuterol (Albuterol 2.5 Mg/3 Ml Nebu) 2.5 mg IH Q3HRT PRN PRN Reason: Shortness Of Breath Ascorbic Acid (Ascorbic Acid 500 Mg Tab) 500 mg PO BID [facility] Last Admin: 05/27/21 09:59 Dose: 500 mg Documented by: Cholecalciferol (Cholecalciferol (Vit D3) 1000 Unit (25 Mcg) Tab) 1,000 unit PO QDAY [facility] Last Admin: 05/27/21 09:54 Dose: 1,000 unit Documented by: Famotidine (Famotidine 20 Mg/2 Ml Inj) 20 mg IV DAILY [facility] Last Admin: 05/27/21 09:54 Dose: 20 mg Documented by: Fentanyl (Fentanyl 100 Mcg/2 Ml Inj) 50 mcg IV Q10MIN PRN PRN Reason: ANALGESIA Heparin Sodium (Porcine) (Heparin 5,000 Unit/1 Ml Vial) 5,000 unit SUB-Q Q12HR [facility] Last Admin: 05/27/21 09:58 Dose: Not Given Documented by: Hydrophilic Ointment (Lip Therapy Vaseline) 1 applic TP Q2HR PRN PRN Reason: Dry Lips Fentanyl Citrate (Fentanyl Drip Premix) 2,000 mcg in 100 mls @ 2.268 mls/hr IV TITR [facility]; Protocol Last Admin: 05/26/21 23:20 Dose: 1 mcg/kg/hr, 2.268 mls/hr Documented by: Dextrose (D5w) 1,000 mls @ 75 mls/hr IV DIRECT [facility] Last Admin: 05/26/21 21:56 Dose: 75 mls/hr Documented by: Cefepime HCl (Cefepime/Ns 1 Gm/100 Ml) 1 gm in 100 mls @ 200 mls/hr IV Q24H [facility]; Protocol Methylprednisolone Sodium Succinate (Methylprednisolone Sod Succinate 40 Mg/1 Ml Inj) 40 mg IV Q8H [facility] Last Admin: 05/27/21 04:55 Dose: 40 mg Documented by: Multi-Ingred Cream/Lotion/Oil/Oint (Mineral Oil/Petrolatum, White Ophth Oint 3.5 Gm) 1 applic OU Q4HR PRN PRN Reason: Dry Eye(s) Pneumococcal Polyvalent Vaccine (Pneumococcal 23 Valent 0.5 Ml Vial) 0.5 ml IM .ONCE ONE Stop: 05/28/21 12:01 Senna/Docusate Sodium (Sennosides/Docusate Sodium 8.6/50 Mg Tab) 1 tab FEEDTUBE BID [facility] Last Admin: 05/27/21 09:54 Dose: 1 tab Documented by: Sodium Chloride (Sodium Chloride 0.9% 10 Ml Flush Syringe) 10 ml IV BID [facility] Last Admin: 05/27/21 09:58 Dose: 10 ml Documented by: Sodium Chloride (Sodium Chloride 0.9% 10 Ml Flush Syringe) 10 ml IV PRN PRN PRN Reason: LINE FLUSH Zinc Sulfate (Zinc Sulfate 220 Mg Cap) 220 mg PO BID [facility] Last Admin: 05/27/21 09:58 Dose: 220 mg Documented by: Review of Systems ROS unobtainable: due to mental status Exam - Vital Signs Vital signs: Vital Signs Temp Pulse Resp BP Pulse Ox 102.8 F H 118 H 20 203/95 100 05/26/21 17:00 05/26/21 17:00 05/26/21 17:00 05/26/21 17:00 05/26/21 17:00 Results - Lab Results 05/27/21 02:00 05/27/21 12:08 Most recent lab results ABG pH 7.380 (7.320-7.450) 05/27/21 03:19 ABG O2 Saturation 94.7 (0-100) 05/27/21 03:19 Calcium 7.3 mg/dL (8.4-10.2) L 05/27/21 08:22 Phosphorus 5.00 mg/dL (2.5-4.5) H 05/27/21 02:00 Urine Creatinine 51.6 mg/dL (0.1-20.0) H 05/26/21 Unknown Urine Sodium 96 mmol/L 05/26/21 Unknown Assessment and Plan 1. Acute kidney injury: Vasomotor SIXTO in the volume depletion / dehydration. CT abdomen negative for hydro. Creatinine level was normal in 2019. Continue IV fluids. Monitor renal function. Slight decrease in creatinine level noted. Non-oliguric. Renal prognosis is guarded. Avoid nephrotoxic agents. Meds dosage based on GFR. Monitor for [employer] needs. 2. FEN: Hypernatremia, increase IV D5W. Started on NG water flsuhes. Metabolic acidosis, monitor. Lactic acidosis. Monitor lytes. 3. Acute respiratory failure with hypoxia: 2/2 PNA. Intubated, on vent. 4. Pneumonia, POA: Abx. Follow cultures. 5. Elevated Troponin: Monitor. 6. Hypertension: Monitor BP. Meds as appropriate. 7. Acute metabolic Encephalopathy, POA: Monitor. 8. COVID PUI. Prognosis guarded. Subjective: Patient was seen and examined at the bedside. Examination: General appearance: well-developed, thin built, appears stated age, intubated, on vent HEENT: ATNC, pupils equal Neck: supple Respiratory: coarse breath sounds Cardiology: regular, S1S2, no murmur Gastrointestinal: soft, bowel sounds heard, not tender Integumentary: no rash, warm and dry Neurologic: not responding Ext: no edema : Cast catheter
--- NOTE | 2021-05-27 11:24 | Progress Note ---
Assessment and Plan Assessment and plan: Acute hypoxemic respiratory failure Sepsis Bilateral pneumonia. Suspected COVID-19 infection Acute kidney injury/ATN Severe hypernatremia UTI 05/27/2021. Patient with severe hypernatremia secondary to dehydration/vasomotor nephropathy. Continue IV fluid hydration per nephrology recommendations. Patient with a creatinine September 2019 of 0.7. On this admission patient was noted to have a creatinine of 5.4. Slightly improved today to 4.2. Etiology secondary to vasomotor nephropathy/acute kidney injury/volume depletion/dehydration. Follow-up urine studies. CT scan of the abdomen pelvis did not reveal any obstruction. CT chest revealed bilateral pulmonary opacities. Patient with elevated D-dimer that may be secondary to Covid coagulopathy. Consider VQ scan. Unable to perform CTA given renal insufficiency. Await pulmonary consultation The high probability of a clinically significant, sudden or life threatening deterioration of the [respiratory, renal and electrolyte] system(s) required my full and direct attention, intervention and personal management. The aggregate critical care time was [33] minutes. This time is in addition to time spent performing reported procedures but includes the following: [x] Data Review and interpretation [x] Patient assessment and monitoring of vital signs [x] Documentation [x] Medication orders and management History Interval history: No new issues overnight Hospitalist Physical - Constitutional Vitals: Temp Pulse Resp BP Pulse Ox 97.8 F 86 16 138/74 99 05/27/21 08:00 05/27/21 10:00 05/27/21 10:00 05/27/21 10:05/27/21 10:00 General appearance: Present: severe distress - EENT Eyes: Present: PERRL, EOM intact ENT: hearing intact, clear oral mucosa, dentition normal - Neck Neck: Present: supple, normal ROM - Respiratory Respiratory effort: normal Respiratory: bilateral: CTA - Cardiovascular Rhythm: regular Heart Sounds: Present: S1 & S2. Absent: gallop, rub - Extremities Extremities: no ischemia, No edema, Full ROM - Abdominal General gastrointestinal: soft, non-tender, non-distended, normal bowel sounds - Integumentary Integumentary: Present: clear, warm, dry - Neurologic Neurologic: CNII-XII intact, moves all extremities HEART Score - HEART Score Troponin: Troponin T 0.038 ng/mL (0.00-0.029) H 05/26/21 17:08 Results - Labs CBC & Chem 7: 05/27/21 02:00 05/27/21 08:22 Labs: Laboratory Last Values WBC 27.1 K/mm3 (4.5-11.0) H 05/27/21 02:00 RBC 4.10 M/mm3 (3.65-5.03) 05/27/21 02:00 Hgb 11.1 gm/dl (11.8-15.2) L 05/27/21 02:00 Hct 35.6 % (35.5-45.6) 05/27/21 02:00 MCV 87 fl (84-94) 05/27/21 02:00 MCH 27 pg (28-32) L 05/27/21 02:00 MCHC 31 % (32-34) L 05/27/21 02:00 RDW 16.1 % (13.2-15.2) H 05/27/21 02:00 Plt Count 62 K/mm3 (140-440) L 05/27/21 02:00 Lymph % (Auto) 30.3 % (13.4-35.0) 05/26/21 17:08 [place] % (Auto) 6.1 % (0.0-7.3) 05/26/21 17:08 Eos % (Auto) 1.0 % (0.0-4.3) 05/26/21 17:08 Baso % (Auto) 0.5 % (0.0-1.8) 05/26/21 17:08 Lymph # (Auto) 3.0 K/mm3 (1.2-5.4) 05/26/21 17:08 [place] # (Auto) 0.6 K/mm3 (0.0-0.8) 05/26/21 17:08 Eos # (Auto) 0.1 K/mm3 (0.0-0.4) 05/26/21 17:08 Baso # (Auto) 0.1 K/mm3 (0.0-0.1) 05/26/21 17:08 Add Manual Diff Complete 05/27/21 02:00 Total Counted 100 05/27/21 02:00 Seg Neutrophils % [employer] Director 05/27/21 02:00 Seg Neuts % (Manual) 93.0 % (40.0-70.0) H 05/27/21 02:00 Lymphocytes % (Manual) 3.0 % (13.4-35.0) L 05/27/21 02:00 Monocytes % (Manual) 4.0 % (0.0-7.3) 05/27/21 02:00 Nucleated RBC % Not Reportable 05/27/21 02:00 Seg Neutrophils # 6.1 K/mm3 (1.8-7.7) 05/26/21 17:08 Seg Neutrophils # Man 25.2 K/mm3 (1.8-7.7) H 05/27/21 02:00 Band Neutrophils # 0.0 K/mm3 05/27/21 02:00 Lymphocytes # (Manual) 0.8 K/mm3 (1.2-5.4) L 05/27/21 02:00 Abs React Lymphs (Man) 0.0 K/mm3 05/27/21 02:00 Monocytes # (Manual) 1.1 K/mm3 (0.0-0.8) H 05/27/21 02:00 Eosinophils # (Manual) 0.0 K/mm3 (0.0-0.4) 05/27/21 02:00 Basophils # (Manual) 0.0 K/mm3 (0.0-0.1) 05/27/21 02:00 Metamyelocytes # 0.0 K/mm3 05/27/21 02:00 Myelocytes # 0.0 K/mm3 05/27/21 02:00 Promyelocytes # 0.0 K/mm3 05/27/21 02:00 Blast Cells # 0.0 K/mm3 05/27/21 02:00 WBC Morphology Not Reportable 05/27/21 02:00 Hypersegmented Neuts Not Reportable 05/27/21 02:00 Hyposegmented Neuts Not Reportable 05/27/21 02:00 Hypogranular Neuts Not Reportable 05/27/21 02:00 Smudge Cells Not Reportable 05/27/21 02:00 Toxic Granulation Not Reportable 05/27/21 02:00 Toxic Vacuolation Not Reportable 05/27/21 02:00 Dohle Bodies Not Reportable 05/27/21 02:00 Pelger-Huet Anomaly Not Reportable 05/27/21 02:00 Daniel Rods Not Reportable 05/27/21 02:00 Platelet Estimate Not Reportable 05/27/21 02:00 Clumped Platelets Not Reportable 05/27/21 02:00 Plt Clumps, EDTA Not Reportable 05/27/21 02:00 Large Platelets Not Reportable 05/27/21 02:00 Giant Platelets Not Reportable 05/27/21 02:00 Platelet Satelliting Not Reportable 05/27/21 02:00 Plt Morphology Comment Not Reportable 05/27/21 02:00 RBC Morphology Normal 05/27/21 02:00 Dimorphic RBCs Not Reportable 05/27/21 02:00 Polychromasia Not Reportable 05/27/21 02:00 Hypochromasia Not Reportable 05/27/21 02:00 Poikilocytosis Not Reportable 05/27/21 02:00 Anisocytosis Not Reportable 05/27/21 02:00 Microcytosis Not Reportable 05/27/21 02:00 Macrocytosis Not Reportable 05/27/21 02:00 Spherocytes Not Reportable 05/27/21 02:00 Pappenheimer Bodies Not Reportable 05/27/21 02:00 Sickle Cells Not Reportable 05/27/21 02:00 Target Cells Not Reportable 05/27/21 02:00 Tear Drop Cells Not Reportable 05/27/21 02:00 Ovalocytes Not Reportable 05/27/21 02:00 Helmet Cells Not Reportable 05/27/21 02:00 [place] Bodies Not Reportable 05/27/21 02:00 [place] Rings Not Reportable 05/27/21 02:00 Bart[place] Cells Not Reportable 05/27/21 02:00 Bite Cells Not Reportable 05/27/21 02:00 Crenated Cell Not Reportable 05/27/21 02:00 Elliptocytes Not Reportable 05/27/21 02:00 Acanthocytes (Spur) Not Reportable 05/27/21 02:00 Rouleaux Not Reportable 05/27/21 02:00 Hemoglobin C Crystals Not Reportable 05/27/21 02:00 Schistocytes Not Reportable 05/27/21 02:00 Malaria parasites Not Reportable 05/27/21 02:00 Arik Bodies Not Reportable 05/27/21 02:00 Hem Pathologist Commnt No 05/27/21 02:00 APTT 42.4 Sec. (24.2-36.6) H 05/26/21 17:08 D-Dimer 8255.81 ng/mlDDU (0-234) H 05/26/21 17:08 ABG pH 7.380 (7.320-7.450) 05/27/21 03:19 POC ABG pCO2 31.7 mmHg (32.0-48.0) L 05/27/21 03:19 POC ABG pO2 79.5 mmHg (83-108) L 05/27/21 03:19 POC ABG HCO3 18.3 05/27/21 03:19 ABG O2 Saturation 94.7 (0-100) 05/27/21 03:19 POC ABG Base Excess -5.9 05/27/21 03:19 ABG Hemoglobin 10.9 (12.0-17.5) L 05/27/21 03:19 ABG Oxyhemoglobin 94.3 (94-98) 05/27/21 03:19 ABG Methemoglobin 0.3 (0.0-1.5) 05/27/21 03:19 ABG Sodium 181.4 mmol/L (136.0-145.0) H 05/27/21 03:19 ABG Potassium 4.2 mmol/L (3.40-4.50) 05/27/21 03:19 ABG Glucose 276 mg/dL (65-95) H 05/27/21 03:19 Carboxyhemoglobin 0.1 (0.5-1.5) L 05/27/21 03:19 FiO2 % 35.0 05/27/21 03:19 Sodium TNR 05/27/21 08:22 Potassium 4.1 mmol/L (3.6-5.0) 05/27/21 08:22 Chloride TNR 05/27/21 08:22 Carbon Dioxide 21 mmol/L (22-30) L 05/27/21 08:22 Anion Gap TNR 05/27/21 08:22 BUN 103 mg/dL (9-20) H 05/27/21 08:22 Creatinine 4.2 mg/dL (0.8-1.3) H 05/27/21 08:22 Estimated GFR 14 ml/min 05/27/21 08:22 BUN/Creatinine Ratio 25 % 05/27/21 08:22 Glucose 271 mg/dL (75-100) H 05/27/21 08:22 POC Glucose 182 mg/dL (70-105) H 05/26/21 23:28 Lactic Acid 2.20 mmol/L (0.7-2.0) H* 05/27/21 08:22 Calcium 7.3 mg/dL (8.4-10.2) L 05/27/21 08:22 Phosphorus 5.00 mg/dL (2.5-4.5) H 05/27/21 02:00 Ferritin 598.3 ng/mL (30.0-300.0) H 05/26/21 17:08 Total Bilirubin 0.50 mg/dL (0.1-1.2) 05/27/21 02:00 AST 66 units/L (5-40) H 05/27/21 02:00 ALT 64 units/L (7-56) H 05/27/21 02:00 Alkaline Phosphatase 126 units/L (35-129) 05/27/21 02:00 Ammonia 46.0 umol/L (25-60) 05/26/21 17:08 Lactate Dehydrogenase 550 units/L (91-180) H 05/26/21 17:08 Troponin T 0.038 ng/mL (0.00-0.029) H 05/26/21 17:08 C-Reactive Protein 4.20 mg/dL (0.00-1.30) H 05/26/21 17:08 Total Protein 6.6 g/dL (6.3-8.2) 05/27/21 02:00 Albumin 2.9 g/dL (3.9-5) L 05/27/21 02:00 Albumin/Globulin Ratio 0.8 % 05/27/21 02:00 Triglycerides 150 mg/dL (2-149) H 05/26/21 17:08 Cholesterol 145 mg/dL (50-199) 05/26/21 17:08 LDL Cholesterol Direct 84 mg/dL (50-130) 05/26/21 17:08 HDL Cholesterol 24 mg/dL (40-59) L 05/26/21 17:08 Cholesterol/HDL Ratio 6.04 % 05/26/21 17:08 TSH 0.342 mlU/mL (0.270-4.200) 05/26/21 17:08 Arterial Blood Glucose 276 mg/dL (65-95) H 05/27/21 03:19 Arterial Blood Ionized Calcium 4.1 mg/dL (4.6-5.3) L 05/27/21 03:19 Urine Color Yellow (Yellow) 05/26/21 Unknown Urine Turbidity Clear (Clear) 05/26/21 Unknown Urine pH 5.0 (5.0-7.0) 05/26/21 Unknown Ur Specific [place] 1.011 (1.003-1.030) 05/26/21 Unknown Urine Protein <15 mg/dl mg/dL (Negative) 05/26/21 Unknown Urine Glucose (UA) Neg mg/dL (Negative) 05/26/21 Unknown Urine Ketones Neg mg/dL (Negative) 05/26/21 Unknown Urine Blood Sm (Negative) 05/26/21 Unknown Urine Nitrite Neg (Negative) 05/26/21 Unknown Urine Bilirubin Neg (Negative) 05/26/21 Unknown Urine Urobilinogen < 2.0 mg/dL (<2.0) 05/26/21 Unknown Ur Leukocyte Esterase Neg (Negative) 05/26/21 Unknown Urine WBC (Auto) 16.0 /HPF (0.0-6.0) H 05/26/21 Unknown Urine RBC (Auto) 2.0 /HPF (0.0-6.0) 05/26/21 Unknown Urine Bacteria (Auto) 1+ /HPF (Negative) 05/26/21 Unknown Urine Osmolality 392 Mosm/kg 05/26/21 Unknown Urine Creatinine 51.6 mg/dL (0.1-20.0) H 05/26/21 Unknown Urine Sodium 96 mmol/L 05/26/21 Unknown Salicylates < 0.3 mg/dL (2.8-20.0) L 05/26/21 17:08 Acetaminophen < 5.0 ug/mL (10.0-30.0) L 05/26/21 17:08 Blood Type O POSITIVE 05/26/21 17:00 Antibody Screen Negative 05/26/21 17:00 Microbiology: Microbiology 05/26/21 17:05 Peripheral/Venous Blood Culture - Preliminary Culture in Progress 05/26/21 17:08 Peripheral/Venous Blood Culture - Preliminary Culture in Progress Cast/IV: Voiding Method Indwelling Catheter Active Medications - Current Medications Current Medications: Generic Name Dose Route Start Last Admin Trade Name Freq PRN Reason Stop Dose Admin Acetaminophen 650 mg 05/26/21 18:34 Acetaminophen 650 Mg Rect Supp CA Q6H PRN Pain MILD(1-3)/Fever >100.5/JONES Albuterol 2.5 mg 05/26/21 18:34 Albuterol 2.5 Mg/3 Ml Nebu IH Q3HRT PRN Shortness Of Breath Ascorbic Acid 500 mg 05/26/21 22:00 05/27/21 09:59 Ascorbic Acid 500 Mg Tab PO 500 mg BID [facility] Administration Cholecalciferol 1,000 unit 05/27/21 10:00 05/27/21 09:54 Cholecalciferol (Vit D3) 1000 Unit (25 Mcg) Tab PO 1,000 unit QDAY [facility] Administration Famotidine 20 mg 05/27/21 10:00 05/27/21 09:54 Famotidine 20 Mg/2 Ml Inj IV 20 mg DAILY [facility] Administration Fentanyl 50 mcg 05/26/21 17:02 Fentanyl 100 Mcg/2 Ml Inj IV Q10MIN PRN ANALGESIA Heparin Sodium (Porcine) 5,000 unit 05/26/21 22:00 05/27/21 09:58 Heparin 5,000 Unit/1 Ml Vial SUB-Q Not Given Q12HR O[facility] Hydrophilic Ointment 1 applic 05/26/21 17:02 Lip Therapy Vaseline TP Q2HR PRN Dry Lips Fentanyl Citrate 2,000 mcg in 100 mls @ 2.268 mls/hr 05/26/21 18:00 05/26/21 23:20 Fentanyl Drip Premix IV 1 mcg/kg/hr TITR O[facility] 2.268 mls/hr Administration Protocol 1 MCG/KG/HR Dextrose 1,000 mls @ 75 mls/hr 05/26/21 19:00 05/26/21 21:56 D5w IV 75 mls/hr DIRECT [facility] Administration Cefepime HCl 1 gm in 100 mls @ 200 mls/hr 05/27/21 18:00 Cefepime/Ns 1 Gm/100 Ml IV Q24H [facility] Protocol Methylprednisolone Sodium Succinate 40 mg 05/26/21 20:00 05/27/21 04:55 Methylprednisolone Sod Succinate 40 Mg/1 Ml Inj IV 40 mg Q8H [facility] Administration Multi-Ingred Cream/Lotion/Oil/Oint 1 applic 05/26/21 17:02 Mineral Oil/Petrolatum, White Ophth Oint 3.5 Gm OU Q4HR PRN Dry Eye(s) Pneumococcal Polyvalent Vaccine 0.5 ml 05/28/21 12:00 Pneumococcal 23 Valent 0.5 Ml Vial IM 05/28/21 12:01 .ONCE ONE Senna/Docusate Sodium 1 tab 05/26/21 22:00 05/27/21 09:54 Sennosides/Docusate Sodium 8.6/50 Mg Tab FEEDTUBE 1 tab BID [facility] Administration Sodium Chloride 10 ml 05/26/21 22:00 05/27/21 09:58 Sodium Chloride 0.9% 10 Ml Flush Syringe IV 10 ml BID [facility] Administration Sodium Chloride 10 ml 05/26/21 18:34 Sodium Chloride 0.9% 10 Ml Flush Syringe IV PRN PRN LINE FLUSH Zinc Sulfate 220 mg 05/26/21 22:00 05/27/21 09:58 Zinc Sulfate 220 Mg Cap PO 220 mg BID [facility] Administration Nutrition/Malnutrition Assess - Dietary Evaluation Nutrition/Malnutrition Findings: Nutrition Notes Start: 05/27/21 08:35 Freq: Status: Active Protocol: Document 05/27/21 08:35 (Rec: 05/27/21 08:40 [email or web address]) Nutrition Notes Need for Assessment generated from: Low BMI Initial or Follow up Assessment Current Diagnosis Acute Kidney Injury,Sepsis, Hypertension,Respiratory Failure Other Pertinent Diagnosis UTI, encephalopathy, dehydration, COVID PUI Current Diet NPO Labs/Tests Na 180 BUN 100 Cr 4.6 BG 272 Phos 5 Pertinent Medications Solu-Medrol Height 5 ft 2 in Weight 45.359 kg [place] Body Weight (kg) 53.63 BMI 18.3 Weight Status Underweight Subjective/Other Information Screen for low BMI. Pt on vent and unable to communicate. Burn Absent Trauma Absent Current % PO Negligible Minimum of two criteria No physical signs of malnutrition #1 Nutrition Diagnosis Inadequate oral intake Etiology ARF As Evidenced by Signs and Symptoms pt on vent and unable to consume PO Is patient on ventilator? Yes Is Patient Ambulatory and/or Out of Bed No REE-(Crary-St. Jeor-confined to bed) [phone] Calculation Used for Recommendations [facility] Additional Notes Protein: (1.2-2g/kg) 54-91g Fluid: 1 ml/kcal or per MD Nutrition Intervention Change Diet Order: Start TF when able Nutrition Support: Osmolite 1.5 at 35 ml/hr Flush 200 ml q4h for hypernatermia, once resolved, flush 100 ml q4h or per MD Kcal 1,260 Protein (gm) 53 Fluid (mL) 640 Goal #1 Start TF or ectubation Follow-Up By: 05/31/21 Additional Comments FU for TF consult or extubation
[2021-05-27 12:25] LABS: Blood Urea Nitrogen 105 mg/dL (9-20); Hemolysis Index 16
[2021-05-27] MEDS: DEXTROSE 5% IN WATER 1,000 ML IV SCH ×2 (12:32→21:36)
[2021-05-27 12:36] LABS: BUN/Creatinine Ratio 25
--- NOTE | 2021-05-27 12:57 | Consultation ---
History of Present Illness Consult date: 05/27/21 Requesting physician: SYLVESTER COLES Reason for consult: other (Severe Sepsis; Acute Encephalopathy) History of present illness: PCCM CONSULT NOTE (Full dictation # [id number]) Please see dictated notes for full details Past History Past Medical History: hypertension, other (See HPI) Past Surgical History: No surgical history, Other (Unable to obtain) Social history: no significant social history, other (Unable to obtain) Family history: no significant family history, other (Unable to obtain) Medications and Allergies Allergies Allergy/AdvReac Type Severity Reaction Status Date / Time No Known Allergies Allergy Unverified 05/26/21 18:11 Home Medications Medication Instructions Recorded Confirmed Last Taken Type No Known Home Medications [No 05/26/21 05/26/21 Unknown History Reported Home Medications] Active Meds: Active Medications Acetaminophen (Acetaminophen 650 Mg Rect Supp) 650 mg OR Q6H PRN PRN Reason: Pain MILD(1-3)/Fever >100.5/JONES Albuterol (Albuterol 2.5 Mg/3 Ml Nebu) 2.5 mg IH Q3HRT PRN PRN Reason: Shortness Of Breath Ascorbic Acid (Ascorbic Acid 500 Mg Tab) 500 mg PO BID [facility] Last Admin: 05/27/21 09:59 Dose: 500 mg Documented by: Cholecalciferol (Cholecalciferol (Vit D3) 1000 Unit (25 Mcg) Tab) 1,000 unit PO QDAY [facility] Last Admin: 05/27/21 09:54 Dose: 1,000 unit Documented by: Famotidine (Famotidine 20 Mg/2 Ml Inj) 20 mg IV DAILY [facility] Last Admin: 05/27/21 09:54 Dose: 20 mg Documented by: Fentanyl (Fentanyl 100 Mcg/2 Ml Inj) 50 mcg IV Q10MIN PRN PRN Reason: ANALGESIA Heparin Sodium (Porcine) (Heparin 5,000 Unit/1 Ml Vial) 5,000 unit SUB-Q Q12HR [facility] Last Admin: 05/27/21 09:58 Dose: Not Given Documented by: Hydrophilic Ointment (Lip Therapy Vaseline) 1 applic TP Q2HR PRN PRN Reason: Dry Lips Fentanyl Citrate (Fentanyl Drip Premix) 2,000 mcg in 100 mls @ 2.268 mls/hr IV TITR [facility]; Protocol Last Titration: 05/27/21 12:37 Dose: 0.5 mcg/kg/hr, 1.134 mls/hr Documented by: Dextrose (D5w) 1,000 mls @ 125 mls/hr IV DIRECT [facility] Last Admin: 05/27/21 12:32 Dose: 75 mls/hr Documented by: Cefepime HCl (Cefepime/Ns 1 Gm/100 Ml) 1 gm in 100 mls @ 200 mls/hr IV Q24H [facility]; Protocol Methylprednisolone Sodium Succinate (Methylprednisolone Sod Succinate 40 Mg/1 Ml Inj) 40 mg IV Q8H [facility] Last Admin: 05/27/21 12:31 Dose: 40 mg Documented by: Multi-Ingred Cream/Lotion/Oil/Oint (Mineral Oil/Petrolatum, White Ophth Oint 3.5 Gm) 1 applic OU Q4HR PRN PRN Reason: Dry Eye(s) Pneumococcal Polyvalent Vaccine (Pneumococcal 23 Valent 0.5 Ml Vial) 0.5 ml IM .ONCE ONE Stop: 05/28/21 12:01 Senna/Docusate Sodium (Sennosides/Docusate Sodium 8.6/50 Mg Tab) 1 tab FEEDTUBE BID [facility] Last Admin: 05/27/21 09:54 Dose: 1 tab Documented by: Sodium Chloride (Sodium Chloride 0.9% 10 Ml Flush Syringe) 10 ml IV BID [facility] Last Admin: 05/27/21 09:58 Dose: 10 ml Documented by: Sodium Chloride (Sodium Chloride 0.9% 10 Ml Flush Syringe) 10 ml IV PRN PRN PRN Reason: LINE FLUSH Zinc Sulfate (Zinc Sulfate 220 Mg Cap) 220 mg PO BID [facility] Last Admin: 05/27/21 09:58 Dose: 220 mg Documented by: Physical Examination Vital signs: Vital Signs Temp Pulse Resp BP Pulse Ox 102.8 F H 118 H 20 203/95 100 05/26/21 17:00 05/26/21 17:00 05/26/21 17:00 05/26/21 17:00 05/26/21 17:00 Results - Laboratory Findings CBC and BMP: 05/27/21 02:00 05/27/21 12:08 ABG ABG pH 7.380 (7.320-7.450) 05/27/21 03:19 POC ABG pCO2 31.7 mmHg (32.0-48.0) L 05/27/21 03:19 POC ABG pO2 79.5 mmHg (83-108) L 05/27/21 03:19 POC ABG HCO3 18.3 05/27/21 03:19 ABG O2 Saturation 94.7 (0-100) 05/27/21 03:19 PT/INR, D-dimer D-Dimer 8255.81 ng/mlDDU (0-234) H 05/26/21 17:08 Abnormal lab findings: Abnormal Labs 05/26/21 05/26/21 05/26/21 17:08 17:08 17:08 WBC Hgb MCH MCHC 31 L RDW 16.2 H Plt Count 80 L Seg Neuts % (Manual) Lymphocytes % (Manual) Seg Neutrophils # Man Lymphocytes # (Manual) Monocytes # (Manual) APTT 42.4 H D-Dimer 8255.81 H POC ABG pCO2 POC ABG pO2 ABG Hemoglobin ABG Oxyhemoglobin ABG Sodium ABG Glucose Carboxyhemoglobin Sodium 180 H* Chloride 140 H Carbon Dioxide 21 L BUN 118 H Creatinine 5.4 H Glucose 133 H POC Glucose Lactic Acid Calcium 8.1 L Phosphorus Ferritin AST 97 H ALT 71 H Alkaline Phosphatase 138 H Lactate Dehydrogenase 550 H Troponin T 0.038 H C-Reactive Protein 4.20 H Albumin 3.3 L Triglycerides 150 H HDL Cholesterol 24 L Arterial Blood Glucose Arterial Blood Ionized Calcium Urine WBC (Auto) Urine Creatinine Salicylates Acetaminophen 05/26/21 05/26/21 05/26/21 17:08 17:08 17:08 WBC Hgb MCH MCHC RDW Plt Count Seg Neuts % (Manual) Lymphocytes % (Manual) Seg Neutrophils # Man Lymphocytes # (Manual) Monocytes # (Manual) APTT D-Dimer POC ABG pCO2 POC ABG pO2 ABG Hemoglobin ABG Oxyhemoglobin ABG Sodium ABG Glucose Carboxyhemoglobin Sodium Chloride Carbon Dioxide BUN Creatinine Glucose POC Glucose Lactic Acid 3.90 H* Calcium Phosphorus Ferritin 598.3 H AST ALT Alkaline Phosphatase Lactate Dehydrogenase Troponin T C-Reactive Protein Albumin Triglycerides HDL Cholesterol Arterial Blood Glucose Arterial Blood Ionized Calcium Urine WBC (Auto) Urine Creatinine Salicylates Acetaminophen < 5.0 L 05/26/21 05/26/21 05/26/21 17:08 17:27 23:28 WBC Hgb MCH MCHC RDW Plt Count Seg Neuts % (Manual) Lymphocytes % (Manual) Seg Neutrophils # Man Lymphocytes # (Manual) Monocytes # (Manual) APTT D-Dimer POC ABG pCO2 POC ABG pO2 453.5 H ABG Hemoglobin 11.5 L ABG Oxyhemoglobin 98.7 H ABG Sodium 198.2 H ABG Glucose 116 H Carboxyhemoglobin 0.3 L Sodium Chloride Carbon Dioxide BUN Creatinine Glucose POC Glucose 182 H Lactic Acid Calcium Phosphorus Ferritin AST ALT Alkaline Phosphatase Lactate Dehydrogenase Troponin T C-Reactive Protein Albumin Triglycerides HDL Cholesterol Arterial Blood Glucose 116 H Arterial Blood Ionized Calcium Urine WBC (Auto) Urine Creatinine Salicylates < 0.3 L Acetaminophen 05/26/21 05/26/21 05/27/21 Unknown Unknown 01:58 WBC Hgb MCH MCHC RDW Plt Count Seg Neuts % (Manual) Lymphocytes % (Manual) Seg Neutrophils # Man Lymphocytes # (Manual) Monocytes # (Manual) APTT D-Dimer POC ABG pCO2 POC ABG pO2 ABG Hemoglobin ABG Oxyhemoglobin ABG Sodium ABG Glucose Carboxyhemoglobin Sodium Chloride Carbon Dioxide BUN Creatinine Glucose POC Glucose Lactic Acid 2.90 H* Calcium Phosphorus Ferritin AST ALT Alkaline Phosphatase Lactate Dehydrogenase Troponin T C-Reactive Protein Albumin Triglycerides HDL Cholesterol Arterial Blood Glucose Arterial Blood Ionized Calcium Urine WBC (Auto) 16.0 H Urine Creatinine 51.6 H Salicylates Acetaminophen 05/27/21 05/27/21 05/27/21 02:00 02:00 03:19 WBC 27.1 H Hgb 11.1 L MCH 27 L MCHC 31 L RDW 16.1 H Plt Count 62 L Seg Neuts % (Manual) 93.0 H Lymphocytes % (Manual) 3.0 L Seg Neutrophils # Man 25.2 H Lymphocytes # (Manual) 0.8 L Monocytes # (Manual) 1.1 H APTT D-Dimer POC ABG pCO2 31.7 L POC ABG pO2 79.5 L ABG Hemoglobin 10.9 L ABG Oxyhemoglobin ABG Sodium 181.4 H ABG Glucose 276 H Carboxyhemoglobin 0.1 L Sodium 180 H* Chloride 140 H Carbon Dioxide 19 L BUN 100 H Creatinine 4.3 H Glucose 272 H POC Glucose Lactic Acid Calcium 7.0 L Phosphorus 5.00 H Ferritin AST 66 H ALT 64 H Alkaline Phosphatase Lactate Dehydrogenase Troponin T C-Reactive Protein Albumin 2.9 L Triglycerides HDL Cholesterol Arterial Blood Glucose 276 H Arterial Blood Ionized Calcium 4.1 L Urine WBC (Auto) Urine Creatinine Salicylates Acetaminophen 05/27/21 05/27/21 05/27/21 08:22 08:22 12:08 WBC Hgb MCH MCHC RDW Plt Count Seg Neuts % (Manual) Lymphocytes % (Manual) Seg Neutrophils # Man Lymphocytes # (Manual) Monocytes # (Manual) APTT D-Dimer POC ABG pCO2 POC ABG pO2 ABG Hemoglobin ABG Oxyhemoglobin ABG Sodium ABG Glucose Carboxyhemoglobin Sodium 179 H* Chloride > 139 H Carbon Dioxide 21 L 19 L BUN 103 H 105 H Creatinine 4.2 H 4.2 H Glucose 271 H 217 H POC Glucose Lactic Acid 2.20 H* Calcium 7.3 L 7.0 L Phosphorus Ferritin AST ALT Alkaline Phosphatase Lactate Dehydrogenase Troponin T C-Reactive Protein Albumin Triglycerides HDL Cholesterol Arterial Blood Glucose Arterial Blood Ionized Calcium Urine WBC (Auto) Urine Creatinine Salicylates Acetaminophen 05/27/21 12:14 WBC Hgb MCH MCHC RDW Plt Count Seg Neuts % (Manual) Lymphocytes % (Manual) Seg Neutrophils # Man Lymphocytes # (Manual) Monocytes # (Manual) APTT D-Dimer POC ABG pCO2 POC ABG pO2 ABG Hemoglobin ABG Oxyhemoglobin ABG Sodium ABG Glucose Carboxyhemoglobin Sodium Chloride Carbon Dioxide BUN Creatinine Glucose POC Glucose 184 H Lactic Acid Calcium Phosphorus Ferritin AST ALT Alkaline Phosphatase Lactate Dehydrogenase Troponin T C-Reactive Protein Albumin Triglycerides HDL Cholesterol Arterial Blood Glucose Arterial Blood Ionized Calcium Urine WBC (Auto) Urine Creatinine Salicylates Acetaminophen
[2021-05-27] MEDS: CEFEPIME/NS 1 GM/100 ML 1 GM/100 ML BAG IV SCH (17:08)
[2021-05-27] MEDS ORDERED: dexAMETHasone 4 MG/ML VIAL IV SCH (18:00)
[2021-05-28] MEDS: DEXTROSE 5% IN WATER 1,000 ML IV SCH (04:24)
--- NOTE | 2021-05-28 06:30 | Consultation ---
DATE OF CONSULTATION: 05/27/2021 PULMONARY CRITICAL CARE CONSULT NOTE CONSULTING PHYSICIAN: Dr. Bhaskar Hamlin. REASON FOR CONSULTATION: Acute hypoxemic respiratory failure, on mechanical ventilatory support. Severe sepsis. CHIEF COMPLAINT AND HISTORY OF PRESENT ILLNESS: The patient is a now 81-year-old male with a past medical history as far as I can tell, significant for living in the community and with some element of adult failure to thrive. He does have a history of hypertension and dementia. He was brought into the ER by EMS due to altered mental status. Reportedly, they found the patient in bed, he was minimally responsive in the field, they placed nasopharyngeal airway to give him bag mask ventilation. In the Emergency Room, he was hypoxemic, breathing agonal, and he was intubated. I was found with a rectal temperature of 102 degrees Fahrenheit. He was tachycardic. A code sepsis was called, volume was resuscitated according to sepsis protocol, and he was started on broad spectrum antibiotics. He required intubation, we were told to assist with management though this is in the setting of the COVID-19 person under investigation. When I stopped by to see him, he was on mechanical ventilator without any patient ventilator dyssynchrony. Of note, he was also found to be severely hypernatremic in the Emergency Room. I do not have any history of vomiting or overt aspiration. This really is as much of the history of presentation as I have. PAST MEDICAL HISTORY: Hypertension, dementia. PAST SURGICAL HISTORY: Unknown. MEDICATIONS: He was on at the time I stopped by to see him, according to the medication administration record included the following: Tylenol 650 mg per rectum q. 6 hours p.r.n. mild pain or fevers, albuterol nebulizer treatments 2.5 mg nebulized q. 3 hours p.r.n. shortness of breath, vitamin C 500 mg p.o. b.i.d., cefepime 1 gram IV daily, vitamin D3 of 1000 units p.o. daily, D5W drip was going at 125 mL per hour, Pepcid 20 mg IV daily, fentanyl drip was going at 0.5 mcg/kg per hour, heparin 5000 units subQ q. 12 hours, Solu-Medrol 40 mg IV q. 8 hours. Artificial tears p.r.n. to his eyes, senna docusate 1 tablet p.o. b.i.d. via feeding tube, zinc sulfate 220 mg p.o. b.i.d. ALLERGIES: No known drug allergies. DIET: Thin, cachectic looking gentleman, acute weight loss or gain history is unknown. SOCIAL HISTORY: Lives in the community with his family. No current alcohol, tobacco or illicit drug use or abuse. Remote history is unknown. FAMILY HISTORY: Otherwise unknown. REVIEW OF SYSTEMS: Unobtainable secondary to the patient's medical and mental condition. Since he has been here, no gross hematochezia or melena, no gross hematuria, no bloody tracheal secretions, no witnessed seizures. Review of systems otherwise unobtainable or as in body of history above. PHYSICAL EXAMINATION: VITAL SIGNS: On presentation, rectal temperature was 102.8 degrees Fahrenheit, pulse of 118, respiratory rate of 20, blood pressure was 203/95, O2 sats 100%, inspired oxygen concentration at that time was not recorded. When I stopped by to see him, O2 sats were 98% that was on the assist control mode of ventilation, tidal volume 450, rate of 16, PEEP of 6 and 35% FIO2. GENERAL: Again, he is an elderly looking, cachectic gentleman, normocephalic, atraumatic, riding the set rate on the mechanical ventilator without significant patient-ventilator dyssynchrony. HEENT: Anicteric. No conjunctival erythema. Oropharynx was dry. Endotracheal tube was in place, taped around 23-24 cm at the lips. NECK: No gross jugular venous distention, no thyromegaly. Grossly, there were no palpable lymph nodes in the supraclavicular or submandibular lymph node chains. LUNGS: Auscultation of both lung casas unremarkable. Lungs were clear bilaterally with good bilateral air movement. HEART: Sounds 1 and 2 are heard at the time of my evaluation, regular rate and rhythm without overt rubs or murmurs. ABDOMEN: Soft, flat, bowel sounds are positive, nontender, no palpable hepatosplenomegaly. EXTREMITIES: Without overt digital clubbing or cyanosis, no pedal edema. Pedal pulses are 2+ bilaterally. NEUROLOGIC: Pupils were pinpoint bilaterally. Extraocular muscle movements could not be assessed. He was not moving spontaneously. He did have some movement of his hands with a sternal rub. SKIN: Poor turgor; however, without overt cellulitis or rash in the areas I examined. Please see the wound care nurses' notes for full description of his skin. At presentation, he had mottled skin. PSYCHIATRIC: Mood and affect could not be assessed. LABORATORY DATA: From my review are as follows: Admission white cell count was 9800 with a hemoglobin of 11.9, hematocrit of 38.0 and a platelet count of 80. No band neutrophils were reported on the manual differential. D-dimer 8256. Arterial blood gas at presentation showed a pH of 7.32, pCO2 of 41, pO2 of 453 on 100%. It is unclear if he was on the mechanical ventilator at that time. Serum sodium was 180, potassium 3.8, chloride 140, bicarbonate 21, BUN 118, creatinine 5.4 and a glucose of 133. Ferritin was up at 598. AST was up at 97, ALT was 71. LDH is 550. Troponin 0.038, slightly elevated. CRP was 4.2, albumin was 3.3. TSH was within normal limits. Urinalysis was negative for nitrites and leukocyte esterase. He did have 16 white cells per high power field and 1+ bacteria. Tylenol and aspirin levels were undetectable essentially. Two sets of blood cultures are no growth to date. Radiographic studies have been reviewed. I have also reviewed the radiologist's interpretation. A CT scan was done of his head. No focal mass, hemorrhage, hydrocephalus, or acute territorial infarcts are evident. He also had a CT scan of the chest done. I have been able to review the images. It is a noncontrast CT scan. Aortic calcifications. 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 He has some patchy dependent atelectasis in the lung windows, a little bit of consolidation in those dependent areas, and some peripheral infiltrates concerning for an infectious process likely pneumonia. Endotracheal tube tip is in good position. Chest x-ray today really does not show any focal infiltrate. ET tube tip was in good position. No gross cardiomegaly. ASSESSMENT: 1. Acute hypoxemic respiratory failure, on mechanical ventilatory support. 2. Bilateral pneumonia, community acquired. 3. Acute toxic metabolic encephalopathy. 4. Severe sepsis. 5. Acute kidney injury. 6. Hypertensive urgency at presentation. 7. Elevated serum D-dimer. 8. Adult failure to thrive. 9. Mild metabolic acidosis. 10. Hyperchloremia. 11. Lactic acidosis, is now down within normal limits, it peaked at 2.9. 12. Elevated serum inflammatory markers to include ferritin, D-dimers, and LDH. 13. Person under investigation for COVID-19 infection. 14. Adult failure to thrive. PLAN: He will be kept on full mechanical ventilatory support. Hopefully, his mental status improves as the serum sodium improves and sepsis is treated and the pneumonia is treated. Ventilator-associated pneumonia bundle has been introduced. Oxygen will be weaned to keep sats greater than or equal to about 92% empirically. COVID-19 test has been sent. I will continue empiric steroids and initiate at this point. He is currently on Solu-Medrol. I will change that to dexamethasone for person under investigation per COVID-19 protocol. I do not see overt emphysematous change on his lung windows of the CT scan. Daily sedation assessment trials and spontaneous breathing trials will be introduced shortly. Volume resuscitation will continue; we will continue initially with free water, but it appears he may have prerenal azotemia and may benefit from half NS or isotonic solution down the line. Thankfully, he is not on any vasopressors. Acute coronary syndrome workup will be deferred to Cardiology. Nephrology is on the case. I will defer azotemia management to them. Infectious Disease consultation again will be considered and deferred to the attending physician. I do note the CRP level not really overtly significant. I will go ahead and get a procalcitonin level to help guide clinical decision making. Enteral nutrition will be the feeding modality of choice. We will begin him on Nepro. He is appropriately on GI and DVT prophylaxis. Flu and pneumonia vaccination will be addressed per protocol. Thank you very much for the consult, Dr. Hamlin. We will follow along and make further recommendations as picture progresses/becomes clearer. He is critically ill on life-sustaining interventions including full mechanical ventilatory support at high risk of from cardiopulmonary, renal and neurologic system decompensation. At this time, we spent about 40 minutes of critical care time without overlap and excluding any procedural time that may be necessary. TID: [id number] RECEIPT: [id number] LUDWIN/LILO
--- NOTE | 2021-05-28 06:31 | XRay Report ---
XR chest 1V ap INDICATION / CLINICAL INFORMATION: follow up respiratory failure. COMPARISON: Radiograph from yesterday. FINDINGS: SUPPORT DEVICES: Unchanged. HEART / MEDIASTINUM: Unchanged. LUNGS / PLEURA: Lung parenchyma is not significantly changed and appear clear. No pneumothorax. No e ffusion. ADDITIONAL FINDINGS: No significant additional findings. IMPRESSION: 1. No significant interval change. Signer Name: Willy Gómez MD Signed: 05/28/2021 5:18 AM Workstation Name: [id number]
[2021-05-28] MEDS ORDERED: SODIUM BICARBONATE 325 MG TAB FEEDTUBE PRN (08:24)
[2021-05-28] MEDS ORDERED: SIMPLE SYRUP 15 ML FEEDTUBE PRN ×2 (08:24)
[2021-05-28] MEDS ORDERED: LIPASE 10,500/PROTEASE 25,000/AMYLASE 43,750 (UNITS) DR CAP FEEDTUBE PRN (08:24)
--- NOTE | 2021-05-28 08:34 | Progress Note ---
Assessment and Plan Acute hypoxemic resp failure on MVS Acute metabolic encephalopathy Sepsis Acute kidney injury (SIXTO) with acute tubular necrosis (ATN) Hypernatremia Pneumonia UTI (urinary tract infection) Protein calorie malnutrition Thrombocytopenia -Titrate supplemental oxygen to keep SpO2 89-92% -VAP bundle addressed, aspiration precautions HOB >30 -Lung protective strategies - Daily SAT and SBT daily -Nutritional support-enteric nutritional support -Glycemic control. Accucheck, target blood glucose <180mg/dL, avoid hypoglycemia -VTE prophylaxis- Heparin -Stress ulcer prophylaxis-Famotidine -Mobility, off loading with frequent turning per facility protocol for pressure ulcer prevention (he is a high risk patient) -Avoid delirium, maintain sleep-wake cycle, avoid benzodiazepines -Supportive transfusions as clinically indicated to keep HgB >7g/dL -Chronic home medications as clinically indicated -Discontinue Cast catheter -Complete antibiotics- Cefepime 01/24 and Vancomycin 01/24 -Avoid nephrotoxins, adjust medications for CrCl/GFR -Continue with free water flushes and hypotonic solution. Goal to correct sodium by 8-10mEq every 24 hours -Stop steroids CONDITION: CRITICAL PROGNOSIS: GUARDED CODE STATUS: FULL CODE The high probability of a clinically significant, sudden or life threatening deterioration of the [pulmonary,cardiovascular, renal, neurology] system(s) required my full and direct attention, intervention and personal management. The aggregate critical care time was [45] minutes. This time is in addition to time spent performing reported procedures but includes the following: [x] Data Review and interpretation [x] Patient assessment and monitoring of vital signs [x] Documentation [x] Medication orders and management Subjective Date of service: 05/28/21 Interval history: Follow up fro acute hypoxemic resp failure on MVS; severe hypernatrmia: acute encephalopathy: SIXTO Seen and examined. Vitals, labs, medications, chart and imaging reviewed. Disucssed with nursing and respiraotry staff, discussed at bedsdie MDR No fevers overnight, remains unresponsive. No diarrhea, no vomiting. Remains orally intubated on Fentanyl infusion COVID negative, Vent ACPRVC 450/16/+6/35% ABG 7.413/29.6/115.2/18.5 Objective Vital Signs - 12hr 05/27/21 05/27/21 05/27/21 21:00 21:30 22:00 Temperature Pulse Rate 79 78 79 Respiratory 16 16 17 Rate Blood Pressure 129/69 129/69 125/69 O2 Sat by Pulse 100 100 100 Oximetry 05/27/21 05/27/21 05/27/21 22:30 23:00 23:06 Temperature Pulse Rate 79 77 74 Respiratory 17 17 16 Rate Blood Pressure 125/69 129/70 129/70 O2 Sat by Pulse 100 100 100 Oximetry 05/27/21 05/27/21 05/27/21 23:23 23:30 23:50 Temperature 97.9 F Pulse Rate 76 77 Respiratory 16 Rate Blood Pressure 129/70 129/70 O2 Sat by Pulse 100 100 Oximetry 05/28/21 05/28/21 05/28/21 00:00 00:30 01:00 Temperature Pulse Rate 77 76 75 Respiratory 17 17 16 Rate Blood Pressure 126/67 126/67 133/69 O2 Sat by Pulse 100 100 100 Oximetry 05/28/21 05/28/21 05/28/21 01:30 02:00 02:30 Temperature Pulse Rate 73 74 71 Respiratory 15 16 16 Rate Blood Pressure 133/69 129/70 129/70 O2 Sat by Pulse 100 100 100 Oximetry 05/28/21 05/28/21 05/28/21 03:00 03:01 03:30 Temperature 98.5 F Pulse Rate 74 74 Respiratory 16 17 Rate Blood Pressure 134/70 134/70 O2 Sat by Pulse 100 100 Oximetry 05/28/21 05/28/21 05/28/21 03:43 04:06 04:30 Temperature Pulse Rate 74 71 70 Respiratory 16 16 Rate Blood Pressure 134/70 149/66 O2 Sat by Pulse 100 100 98 Oximetry 05/28/21 05/28/21 05/28/21 05:00 05:30 06:00 Temperature Pulse Rate 70 71 73 Respiratory 17 18 17 Rate Blood Pressure 147/74 147/74 152/75 O2 Sat by Pulse 98 99 99 Oximetry 05/28/21 08:00 Temperature 98.2 F Pulse Rate 67 Respiratory Rate Blood Pressure 150/75 O2 Sat by Pulse 100 Oximetry Constitutional: no acute distress, other (orally intuabted to MVS, no dys- synchrony) Eyes: non-icteric ENT: oropharynx dry Neck: supple, no lymphadenopathy Effort: normal Ascultation: Bilateral: diminished breath sounds Cardiovascular: regular rate and rhythm, other (S1,S2) Gastrointestinal: normoactive bowel sounds, soft, non-tender, other (Cast in place) Integumentary: normal Extremities: no cyanosis, no edema Neurologic: pupils equal and round, other (encephalopathic) Psychiatric: other (unable to assess) CBC and BMP: 05/27/21 02:00 05/29/21 04:15 ABG, PT/INR, D-dimer: ABG ABG pH 7.413 (7.320-7.450) 05/28/21 03:19 POC ABG pCO2 29.6 mmHg (32.0-48.0) L 05/28/21 03:19 POC ABG pO2 115.2 mmHg (83-108) H 05/28/21 03:19 POC ABG HCO3 18.5 05/28/21 03:19 ABG O2 Saturation 98.1 (0-100) 05/28/21 03:19 PT/INR, D-dimer D-Dimer 8255.81 ng/mlDDU (0-234) H 05/26/21 17:08 Abnormal lab findings: Abnormal Labs 05/26/21 05/26/21 05/26/21 17:08 17:08 17:08 WBC Hgb MCH MCHC 31 L RDW 16.2 H Plt Count 80 L Seg Neuts % (Manual) Lymphocytes % (Manual) Seg Neutrophils # Man Lymphocytes # (Manual) Monocytes # (Manual) APTT 42.4 H D-Dimer 8255.81 H POC ABG pCO2 POC ABG pO2 ABG Hemoglobin ABG Oxyhemoglobin ABG Sodium ABG Chloride ABG Glucose Carboxyhemoglobin Sodium 180 H* Chloride 140 H Carbon Dioxide 21 L BUN 118 H Creatinine 5.4 H Glucose 133 H POC Glucose Lactic Acid Calcium 8.1 L Phosphorus Ferritin AST 97 H ALT 71 H Alkaline Phosphatase 138 H Lactate Dehydrogenase 550 H Troponin T 0.038 H C-Reactive Protein 4.20 H Albumin 3.3 L Triglycerides 150 H HDL Cholesterol 24 L Arterial Blood Glucose Arterial Blood Ionized Calcium Urine WBC (Auto) Urine Creatinine Salicylates Acetaminophen 05/26/21 05/26/21 05/26/21 17:08 17:08 17:08 WBC Hgb MCH MCHC RDW Plt Count Seg Neuts % (Manual) Lymphocytes % (Manual) Seg Neutrophils # Man Lymphocytes # (Manual) Monocytes # (Manual) APTT D-Dimer POC ABG pCO2 POC ABG pO2 ABG Hemoglobin ABG Oxyhemoglobin ABG Sodium ABG Chloride ABG Glucose Carboxyhemoglobin Sodium Chloride Carbon Dioxide BUN Creatinine Glucose POC Glucose Lactic Acid 3.90 H* Calcium Phosphorus Ferritin 598.3 H AST ALT Alkaline Phosphatase Lactate Dehydrogenase Troponin T C-Reactive Protein Albumin Triglycerides HDL Cholesterol Arterial Blood Glucose Arterial Blood Ionized Calcium Urine WBC (Auto) Urine Creatinine Salicylates Acetaminophen < 5.0 L 05/26/21 05/26/21 05/26/21 17:08 17:27 23:28 WBC Hgb MCH MCHC RDW Plt Count Seg Neuts % (Manual) Lymphocytes % (Manual) Seg Neutrophils # Man Lymphocytes # (Manual) Monocytes # (Manual) APTT D-Dimer POC ABG pCO2 POC ABG pO2 453.5 H ABG Hemoglobin 11.5 L ABG Oxyhemoglobin 98.7 H ABG Sodium 198.2 H ABG Chloride ABG Glucose 116 H Carboxyhemoglobin 0.3 L Sodium Chloride Carbon Dioxide BUN Creatinine Glucose POC Glucose 182 H Lactic Acid Calcium Phosphorus Ferritin AST ALT Alkaline Phosphatase Lactate Dehydrogenase Troponin T C-Reactive Protein Albumin Triglycerides HDL Cholesterol Arterial Blood Glucose 116 H Arterial Blood Ionized Calcium Urine WBC (Auto) Urine Creatinine Salicylates < 0.3 L Acetaminophen 05/26/21 05/26/21 05/27/21 Unknown Unknown 01:58 WBC Hgb MCH MCHC RDW Plt Count Seg Neuts % (Manual) Lymphocytes % (Manual) Seg Neutrophils # Man Lymphocytes # (Manual) Monocytes # (Manual) APTT D-Dimer POC ABG pCO2 POC ABG pO2 ABG Hemoglobin ABG Oxyhemoglobin ABG Sodium ABG Chloride ABG Glucose Carboxyhemoglobin Sodium Chloride Carbon Dioxide BUN Creatinine Glucose POC Glucose Lactic Acid 2.90 H* Calcium Phosphorus Ferritin AST ALT Alkaline Phosphatase Lactate Dehydrogenase Troponin T C-Reactive Protein Albumin Triglycerides HDL Cholesterol Arterial Blood Glucose Arterial Blood Ionized Calcium Urine WBC (Auto) 16.0 H Urine Creatinine 51.6 H Salicylates Acetaminophen 05/27/21 05/27/21 05/27/21 02:00 02:00 03:19 WBC 27.1 H Hgb 11.1 L MCH 27 L MCHC 31 L RDW 16.1 H Plt Count 62 L Seg Neuts % (Manual) 93.0 H Lymphocytes % (Manual) 3.0 L Seg Neutrophils # Man 25.2 H Lymphocytes # (Manual) 0.8 L Monocytes # (Manual) 1.1 H APTT D-Dimer POC ABG pCO2 31.7 L POC ABG pO2 79.5 L ABG Hemoglobin 10.9 L ABG Oxyhemoglobin ABG Sodium 181.4 H ABG Chloride ABG Glucose 276 H Carboxyhemoglobin 0.1 L Sodium 180 H* Chloride 140 H Carbon Dioxide 19 L BUN 100 H Creatinine 4.3 H Glucose 272 H POC Glucose Lactic Acid Calcium 7.0 L Phosphorus 5.00 H Ferritin AST 66 H ALT 64 H Alkaline Phosphatase Lactate Dehydrogenase Troponin T C-Reactive Protein Albumin 2.9 L Triglycerides HDL Cholesterol Arterial Blood Glucose 276 H Arterial Blood Ionized Calcium 4.1 L Urine WBC (Auto) Urine Creatinine Salicylates Acetaminophen 05/27/21 05/27/21 05/27/21 08:22 08:22 12:08 WBC Hgb MCH MCHC RDW Plt Count Seg Neuts % (Manual) Lymphocytes % (Manual) Seg Neutrophils # Man Lymphocytes # (Manual) Monocytes # (Manual) APTT D-Dimer POC ABG pCO2 POC ABG pO2 ABG Hemoglobin ABG Oxyhemoglobin ABG Sodium ABG Chloride ABG Glucose Carboxyhemoglobin Sodium 179 H* Chloride > 139 H Carbon Dioxide 21 L 19 L BUN 103 H 105 H Creatinine 4.2 H 4.2 H Glucose 271 H 217 H POC Glucose Lactic Acid 2.20 H* Calcium 7.3 L 7.0 L Phosphorus Ferritin AST ALT Alkaline Phosphatase Lactate Dehydrogenase Troponin T C-Reactive Protein Albumin Triglycerides HDL Cholesterol Arterial Blood Glucose Arterial Blood Ionized Calcium Urine WBC (Auto) Urine Creatinine Salicylates Acetaminophen 05/27/21 05/27/21 05/27/21 12:14 18:03 23:15 WBC Hgb MCH MCHC RDW Plt Count Seg Neuts % (Manual) Lymphocytes % (Manual) Seg Neutrophils # Man Lymphocytes # (Manual) Monocytes # (Manual) APTT D-Dimer POC ABG pCO2 POC ABG pO2 ABG Hemoglobin ABG Oxyhemoglobin ABG Sodium ABG Chloride ABG Glucose Carboxyhemoglobin Sodium Chloride Carbon Dioxide BUN Creatinine Glucose POC Glucose 184 H 183 H 191 H Lactic Acid Calcium Phosphorus Ferritin AST ALT Alkaline Phosphatase Lactate Dehydrogenase Troponin T C-Reactive Protein Albumin Triglycerides HDL Cholesterol Arterial Blood Glucose Arterial Blood Ionized Calcium Urine WBC (Auto) Urine Creatinine Salicylates Acetaminophen 05/28/21 05/28/21 03:19 05:15 WBC Hgb MCH MCHC RDW Plt Count Seg Neuts % (Manual) Lymphocytes % (Manual) Seg Neutrophils # Man Lymphocytes # (Manual) Monocytes # (Manual) APTT D-Dimer POC ABG pCO2 29.6 L POC ABG pO2 115.2 H ABG Hemoglobin 10.2 L ABG Oxyhemoglobin ABG Sodium 153.6 H ABG Chloride 129.0 H ABG Glucose 215 H Carboxyhemoglobin 0.3 L Sodium Chloride Carbon Dioxide BUN Creatinine Glucose POC Glucose 184 H Lactic Acid Calcium Phosphorus Ferritin AST ALT Alkaline Phosphatase Lactate Dehydrogenase Troponin T C-Reactive Protein Albumin Triglycerides HDL Cholesterol Arterial Blood Glucose 215 H Arterial Blood Ionized Calcium 3.7 L Urine WBC (Auto) Urine Creatinine Salicylates Acetaminophen Chest x-ray: image reviewed Allied health notes reviewed: RT
[2021-05-28 09:56] LABS: Calcium 6.3 mg/dL (8.4-10.2)
--- NOTE | 2021-05-28 10:06 | Progress Note ---
Assessment and Plan Assessment and plan: Acute hypoxemic respiratory failure Sepsis Bilateral pneumonia. COVID-19 testing negative. Acute kidney injury/ATN Severe hypernatremia UTI 05/27/2021. Patient with severe hypernatremia secondary to dehydration/vasomotor nephropathy. Continue IV fluid hydration per nephrology recommendations. Malachi webber with a creatinine September 2019 of 0.7. On this admission patient was noted to have a creatinine of 5.4. Slightly improved today to 4.2. Etiology secondary to vasomotor nephropathy/acute kidney injury/volume depletion/dehydration. Follow-up urine studies. CT scan of the abdomen pelvis did not reveal any obstruction. CT chest revealed bilateral pulmonary opacities. Patient with elevated D-dimer that may be secondary to Covid coagulopathy. Consider VQ scan. Unable to perform CTA given renal insufficiency. Await pulmonary consultation 05/28/2021. Hyponatremia has improved to 159. Continue IV fluid hydration per nephrology recommendations. Creatinine has also improved to 2.9. No obstruction per CT scan. COVID-19 testing negative on 05/27/2021. Continue IV antibiotics for bilateral pneumonia and UTI. Follow-up blood and urine cultures. Consider ID consultation patient remains on mechanical ventilation but undergoing PSV trials. Patient currently with PSV with FiO2 of 30% PEEP of 6 and pressure support of 10. Continue vent weaning per pulmonary. The high probability of a clinically significant, sudden or life threatening deterioration of the [respiratory, renal and electrolyte] system(s) required my full and direct attention, intervention and personal management. The aggregate critical care time was [32] minutes. This time is in addition to time spent performing reported procedures but includes the following: [x] Data Review and interpretation [x] Patient assessment and monitoring of vital signs [x] Documentation [x] Medication orders and management History Interval history: No new issues overnight Hospitalist Physical - Constitutional Vitals: Temp Pulse Resp BP Pulse Ox 98.2 F 75 17 150/75 100 05/28/21 08:00 05/28/21 08:50 05/28/21 08:50 05/28/21 08:50 05/28/21 08:50 General appearance: Present: severe distress - EENT Eyes: Present: PERRL, EOM intact ENT: hearing intact, clear oral mucosa, dentition normal - Neck Neck: Present: supple, normal ROM - Respiratory Respiratory effort: normal Respiratory: bilateral: CTA - Cardiovascular Rhythm: regular Heart Sounds: Present: S1 & S2. Absent: gallop, rub - Extremities Extremities: no ischemia, No edema, Full ROM - Abdominal General gastrointestinal: soft, non-tender, non-distended, normal bowel sounds - Integumentary Integumentary: Present: clear, warm, dry - Neurologic Neurologic: CNII-XII intact, moves all extremities HEART Score - HEART Score Troponin: Troponin T 0.038 ng/mL (0.00-0.029) H 05/26/21 17:08 Results - Labs CBC & Chem 7: 05/27/21 02:00 05/28/21 08:47 Labs: Laboratory Last Values WBC 27.1 K/mm3 (4.5-11.0) H 05/27/21 02:00 RBC 4.10 M/mm3 (3.65-5.03) 05/27/21 02:00 Hgb 11.1 gm/dl (11.8-15.2) L 05/27/21 02:00 Hct 35.6 % (35.5-45.6) 05/27/21 02:00 MCV 87 fl (84-94) 05/27/21 02:00 MCH 27 pg (28-32) L 05/27/21 02:00 MCHC 31 % (32-34) L 05/27/21 02:00 RDW 16.1 % (13.2-15.2) H 05/27/21 02:00 Plt Count 62 K/mm3 (140-440) L 05/27/21 02:00 Lymph % (Auto) 30.3 % (13.4-35.0) 05/26/21 17:08 Humphreys % (Auto) 6.1 % (0.0-7.3) 05/26/21 17:08 Eos % (Auto) 1.0 % (0.0-4.3) 05/26/21 17:08 Baso % (Auto) 0.5 % (0.0-1.8) 05/26/21 17:08 Lymph # (Auto) 3.0 K/mm3 (1.2-5.4) 05/26/21 17:08 Humphreys # (Auto) 0.6 K/mm3 (0.0-0.8) 05/26/21 17:08 Eos # (Auto) 0.1 K/mm3 (0.0-0.4) 05/26/21 17:08 Baso # (Auto) 0.1 K/mm3 (0.0-0.1) 05/26/21 17:08 Add Manual Diff Complete 05/27/21 02:00 Total Counted 100 05/27/21 02:00 Seg Neutrophils % Bus Transportation Manager 05/27/21 02:00 Seg Neuts % (Manual) 93.0 % (40.0-70.0) H 05/27/21 02:00 Lymphocytes % (Manual) 3.0 % (13.4-35.0) L 05/27/21 02:00 Monocytes % (Manual) 4.0 % (0.0-7.3) 05/27/21 02:00 Nucleated RBC % Not Reportable 05/27/21 02:00 Seg Neutrophils # 6.1 K/mm3 (1.8-7.7) 05/26/21 17:08 Seg Neutrophils # Man 25.2 K/mm3 (1.8-7.7) H 05/27/21 02:00 Band Neutrophils # 0.0 K/mm3 05/27/21 02:00 Lymphocytes # (Manual) 0.8 K/mm3 (1.2-5.4) L 05/27/21 02:00 Abs React Lymphs (Man) 0.0 K/mm3 05/27/21 02:00 Monocytes # (Manual) 1.1 K/mm3 (0.0-0.8) H 05/27/21 02:00 Eosinophils # (Manual) 0.0 K/mm3 (0.0-0.4) 05/27/21 02:00 Basophils # (Manual) 0.0 K/mm3 (0.0-0.1) 05/27/21 02:00 Metamyelocytes # 0.0 K/mm3 05/27/21 02:00 Myelocytes # 0.0 K/mm3 05/27/21 02:00 Promyelocytes # 0.0 K/mm3 05/27/21 02:00 Blast Cells # 0.0 K/mm3 05/27/21 02:00 WBC Morphology Not Reportable 05/27/21 02:00 Hypersegmented Neuts Not Reportable 05/27/21 02:00 Hyposegmented Neuts Not Reportable 05/27/21 02:00 Hypogranular Neuts Not Reportable 05/27/21 02:00 Smudge Cells Not Reportable 05/27/21 02:00 Toxic Granulation Not Reportable 05/27/21 02:00 Toxic Vacuolation Not Reportable 05/27/21 02:00 Dohle Bodies Not Reportable 05/27/21 02:00 Pelger-Huet Anomaly Not Reportable 05/27/21 02:00 Daniel Rods Not Reportable 05/27/21 02:00 Platelet Estimate Not Reportable 05/27/21 02:00 Clumped Platelets Not Reportable 05/27/21 02:00 Plt Clumps, EDTA Not Reportable 05/27/21 02:00 Large Platelets Not Reportable 05/27/21 02:00 Giant Platelets Not Reportable 05/27/21 02:00 Platelet Satelliting Not Reportable 05/27/21 02:00 Plt Morphology Comment Not Reportable 05/27/21 02:00 RBC Morphology Normal 05/27/21 02:00 Dimorphic RBCs Not Reportable 05/27/21 02:00 Polychromasia Not Reportable 05/27/21 02:00 Hypochromasia Not Reportable 05/27/21 02:00 Poikilocytosis Not Reportable 05/27/21 02:00 Anisocytosis Not Reportable 05/27/21 02:00 Microcytosis Not Reportable 05/27/21 02:00 Macrocytosis Not Reportable 05/27/21 02:00 Spherocytes Not Reportable 05/27/21 02:00 Pappenheimer Bodies Not Reportable 05/27/21 02:00 Sickle Cells Not Reportable 05/27/21 02:00 Target Cells Not Reportable 05/27/21 02:00 Tear Drop Cells Not Reportable 05/27/21 02:00 Ovalocytes Not Reportable 05/27/21 02:00 Helmet Cells Not Reportable 05/27/21 02:00 Huertas-Roland Bodies Not Reportable 05/27/21 02:00 Lincoln Rings Not Reportable 05/27/21 02:00 Bernard Cells Not Reportable 05/27/21 02:00 Bite Cells Not Reportable 05/27/21 02:00 Crenated Cell Not Reportable 05/27/21 02:00 Elliptocytes Not Reportable 05/27/21 02:00 Acanthocytes (Spur) Not Reportable 05/27/21 02:00 Rouleaux Not Reportable 05/27/21 02:00 Hemoglobin C Crystals Not Reportable 05/27/21 02:00 Schistocytes Not Reportable 05/27/21 02:00 Malaria parasites Not Reportable 05/27/21 02:00 Arik Bodies Not Reportable 05/27/21 02:00 Hem Pathologist Commnt No 05/27/21 02:00 APTT 42.4 Sec. (24.2-36.6) H 05/26/21 17:08 D-Dimer 8255.81 ng/mlDDU (0-234) H 05/26/21 17:08 ABG pH 7.413 (7.320-7.450) 05/28/21 03:19 POC ABG pCO2 29.6 mmHg (32.0-48.0) L 05/28/21 03:19 POC ABG pO2 115.2 mmHg (83-108) H 05/28/21 03:19 POC ABG HCO3 18.5 05/28/21 03:19 ABG O2 Saturation 98.1 (0-100) 05/28/21 03:19 POC ABG Base Excess -5.2 05/28/21 03:19 ABG Hemoglobin 10.2 (12.0-17.5) L 05/28/21 03:19 ABG Oxyhemoglobin 97.5 (94-98) 05/28/21 03:19 ABG Methemoglobin 0.3 (0.0-1.5) 05/28/21 03:19 ABG Sodium 153.6 mmol/L (136.0-145.0) H 05/28/21 03:19 ABG Potassium 3.7 mmol/L (3.40-4.50) 05/28/21 03:19 ABG Chloride 129.0 mmol/L (98-107) H 05/28/21 03:19 ABG Glucose 215 mg/dL (65-95) H 05/28/21 03:19 Carboxyhemoglobin 0.3 (0.5-1.5) L 05/28/21 03:19 FiO2 % 35.0 05/28/21 03:19 Sodium 159 mmol/L (137-145) H D 05/28/21 08:47 Potassium 3.6 mmol/L (3.6-5.0) 05/28/21 08:47 Chloride 123.7 mmol/L (98-107) H 05/28/21 08:47 Carbon Dioxide 20 mmol/L (22-30) L 05/28/21 08:47 Anion Gap 19 mmol/L 05/28/21 08:47 BUN 88 mg/dL (9-20) H 05/28/21 08:47 Creatinine 2.9 mg/dL (0.8-1.3) H 05/28/21 08:47 Estimated GFR 21 ml/min 05/28/21 08:47 BUN/Creatinine Ratio 30 % 05/28/21 08:47 Glucose 177 mg/dL (75-100) H 05/28/21 08:47 POC Glucose 184 mg/dL (70-105) H 05/28/21 05:15 Lactic Acid 1.60 mmol/L (0.7-2.0) 05/27/21 12:08 Calcium 6.3 mg/dL (8.4-10.2) L 05/28/21 08:47 Phosphorus 3.90 mg/dL (2.5-4.5) D 05/28/21 08:47 Ferritin 598.3 ng/mL (30.0-300.0) H 05/26/21 17:08 Total Bilirubin 0.50 mg/dL (0.1-1.2) 05/27/21 02:00 AST 66 units/L (5-40) H 05/27/21 02:00 ALT 64 units/L (7-56) H 05/27/21 02:00 Alkaline Phosphatase 126 units/L (35-129) 05/27/21 02:00 Ammonia 46.0 umol/L (25-60) 05/26/21 17:08 Lactate Dehydrogenase 550 units/L (91-180) H 05/26/21 17:08 Troponin T 0.038 ng/mL (0.00-0.029) H 05/26/21 17:08 C-Reactive Protein 4.20 mg/dL (0.00-1.30) H 05/26/21 17:08 Total Protein 6.6 g/dL (6.3-8.2) 05/27/21 02:00 Albumin 2.9 g/dL (3.9-5) L 05/27/21 02:00 Albumin/Globulin Ratio 0.8 % 05/27/21 02:00 Triglycerides 150 mg/dL (2-149) H 05/26/21 17:08 Cholesterol 145 mg/dL (50-199) 05/26/21 17:08 LDL Cholesterol Direct 84 mg/dL (50-130) 05/26/21 17:08 HDL Cholesterol 24 mg/dL (40-59) L 05/26/21 17:08 Cholesterol/HDL Ratio 6.04 % 05/26/21 17:08 Procalcitonin 0.29 ng/mL (<0.15) 05/26/21 17:08 TSH 0.342 mlU/mL (0.270-4.200) 05/26/21 17:08 Arterial Blood Glucose 215 mg/dL (65-95) H 05/28/21 03:19 Arterial Blood Ionized Calcium 3.7 mg/dL (4.6-5.3) L 05/28/21 03:19 Urine Color Yellow (Yellow) 05/26/21 Unknown Urine Turbidity Clear (Clear) 05/26/21 Unknown Urine pH 5.0 (5.0-7.0) 05/26/21 Unknown Ur Specific [place] 1.011 (1.003-1.030) 05/26/21 Unknown Urine Protein <15 mg/dl mg/dL (Negative) 05/26/21 Unknown Urine Glucose (UA) Neg mg/dL (Negative) 05/26/21 Unknown Urine Ketones Neg mg/dL (Negative) 05/26/21 Unknown Urine Blood Sm (Negative) 05/26/21 Unknown Urine Nitrite Neg (Negative) 05/26/21 Unknown Urine Bilirubin Neg (Negative) 05/26/21 Unknown Urine Urobilinogen < 2.0 mg/dL (<2.0) 05/26/21 Unknown Ur Leukocyte Esterase Neg (Negative) 05/26/21 Unknown Urine WBC (Auto) 16.0 /HPF (0.0-6.0) H 05/26/21 Unknown Urine RBC (Auto) 2.0 /HPF (0.0-6.0) 05/26/21 Unknown Urine Bacteria (Auto) 1+ /HPF (Negative) 05/26/21 Unknown Urine Osmolality 392 Mosm/kg 05/26/21 Unknown Urine Creatinine 51.6 mg/dL (0.1-20.0) H 05/26/21 Unknown Urine Sodium 96 mmol/L 05/26/21 Unknown Salicylates < 0.3 mg/dL (2.8-20.0) L 05/26/21 17:08 Acetaminophen < 5.0 ug/mL (10.0-30.0) L 05/26/21 17:08 Coronavirus (PCR) Negative (Negative) 05/27/21 Unknown Blood Type O POSITIVE 05/26/21 17:00 Antibody Screen Negative 05/26/21 17:00 Microbiology: Microbiology 05/26/21 17:05 Peripheral/Venous Blood Culture - Preliminary NO GROWTH AFTER 24 HOURS 05/26/21 17:08 Peripheral/Venous Blood Culture - Preliminary NO GROWTH AFTER 24 HOURS Cast/IV: Voiding Method Indwelling Catheter Active Medications - Current Medications Current Medications: Generic Name Dose Route Start Last Admin Trade Name Freq PRN Reason Stop Dose Admin Acetaminophen 650 mg 05/26/21 18:34 Acetaminophen 650 Mg Rect Supp DC Q6H PRN Pain MILD(1-3)/Fever >100.5/JONES Albuterol 2.5 mg 05/26/21 18:34 Albuterol 2.5 Mg/3 Ml Nebu IH Q3HRT PRN Shortness Of Breath Lipase/Protease/Amylase 1 each 05/28/21 08:24 Lipase 10,500/Protease 25,000/Amylase 43,750 (Units) Dr De Leon FEEDTUBE PRN PRN For Clogged Feeding Tube Ascorbic Acid 500 mg 05/26/21 22:00 05/27/21 21:37 Ascorbic Acid 500 Mg Tab PO 500 mg BID ONDINA Administration Cholecalciferol 1,000 unit 05/27/21 10:00 05/27/21 09:54 Cholecalciferol (Vit D3) 1000 Unit (25 Mcg) Tab PO 1,000 unit QDAY ONDINA Administration Famotidine 20 mg 05/28/21 10:00 Famotidine 20 Mg Tab PO DAILY ONDINA Fentanyl 50 mcg 05/26/21 17:02 Fentanyl 100 Mcg/2 Ml Inj IV Q10MIN PRN ANALGESIA Heparin Sodium (Porcine) 5,000 unit 05/26/21 22:00 05/27/21 21:37 Heparin 5,000 Unit/1 Ml Vial SUB-Q 5,000 unit Q12HR ONDINA Administration Hydrophilic Ointment 1 applic 05/26/21 17:02 Lip Therapy Vaseline TP Q2HR PRN Dry Lips Fentanyl Citrate 2,000 mcg in 100 mls @ 2.268 mls/hr 05/26/21 18:00 05/27/21 15:30 Fentanyl Drip Premix IV 0 mcg/kg/hr TITR ONDINA 0 mls/hr Titration Protocol 1 MCG/KG/HR Dextrose 1,000 mls @ 125 mls/hr 05/26/21 19:00 05/28/21 04:24 D5w IV 75 mls/hr DIRECT ONDINA Administration Cefepime HCl 1 gm in 100 mls @ 200 mls/hr 05/27/21 18:00 05/27/21 17:08 Cefepime/Ns 1 Gm/100 Ml IV 06/02/21 18:29 200 mls/hr Q24H ONDINA Administration Protocol Multi-Ingred Cream/Lotion/Oil/Oint 1 applic 05/26/21 17:02 Mineral Oil/Petrolatum, White Ophth Oint 3.5 Gm OU Q4HR PRN Dry Eye(s) Pneumococcal Polyvalent Vaccine 0.5 ml 05/28/21 12:00 Pneumococcal 23 Valent 0.5 Ml Vial IM 05/28/21 12:01 .ONCE ONE Senna/Docusate Sodium 1 tab 05/26/21 22:00 05/27/21 21:37 Sennosides/Docusate Sodium 8.6/50 Mg Tab FEEDTUBE 1 tab BID ONDINA Administration Simple Syrup 15 ml 05/28/21 08:24 Simple Syrup 15 Ml FEEDTUBE PRN PRN Hypoglycemia Simple Syrup 30 ml 05/28/21 08:24 Simple Syrup 15 Ml FEEDTUBE PRN PRN Hypoglycemia Sodium Bicarbonate 325 mg 05/28/21 08:24 Sodium Bicarbonate 325 Mg Tab FEEDTUBE PRN PRN For Clogged Feeding Tube Sodium Chloride 10 ml 05/26/21 22:00 05/28/21 02:16 Sodium Chloride 0.9% 10 Ml Flush Syringe IV 10 ml BID ONDINA Administration Sodium Chloride 10 ml 05/26/21 18:34 Sodium Chloride 0.9% 10 Ml Flush Syringe IV PRN PRN LINE FLUSH Zinc Sulfate 220 mg 05/26/21 22:00 05/27/21 21:37 Zinc Sulfate 220 Mg Cap PO 220 mg BID ONDINA Administration Nutrition/Malnutrition Assess - Dietary Evaluation Nutrition/Malnutrition Findings: Nutrition Notes Start: 05/27/21 08:35 Freq: Status: Active Protocol: Document 05/28/21 08:22 MARLEN (Rec: 05/28/21 08:24 MARLEN [id number]) Nutrition Notes Need for Assessment generated from: MD Order Initial or Follow up Reassessment Current Diagnosis Acute Kidney Injury,Sepsis, Hypertension,Respiratory Failure Other Pertinent Diagnosis UTI, encephalopathy, dehydration, COVID PUI Current Diet NPO Labs/Tests No new labs Pertinent Medications D5w at 75 ml/hr Height 5 ft 2 in Weight 45.359 kg [place] Body Weight (kg) 53.63 BMI 18.3 Weight Status Underweight Subjective/Other Information MD order for TF. Pt remains on vent. Burn Absent Trauma Absent Current % PO Negligible Minimum of two criteria No physical signs of malnutrition #1 Nutrition Diagnosis Inadequate oral intake Diagnosis Progress(for reassessment Continues documentation) Is patient on ventilator? Yes Is Patient Ambulatory and/or Out of Bed No REE-([facility]-confined to bed) [phone] Calculation Used for Recommendations [facility] Additional Notes Protein: (1.2-2g/kg) 54-91g Fluid: 1 ml/kcal or per MD Nutrition Intervention Change Diet Order: Start TF Nutrition Support: Nepro 1.8 at 30 ml/hr Flush 200 ml q4h for hypernatermia, once resolved, flush 100 ml q4h or per MD Kcal 1,296 Protein (gm) 58 Fluid (mL) 523 Goal #1 Meet at least 75% of protein and energy needs via TF Anticipated Discharge Needs: Unable to determine at this time Follow-Up By: 05/31/21 Additional Comments FU for TF start and tolerance
[2021-05-28] MEDS: ZINC SULFATE 220 MG CAP PO SCH ×2 (10:13→21:47)
[2021-05-28] MEDS: SENNOSIDES/DOCUSATE SODIUM 8.6/50 MG TAB FEEDTUBE SCH (10:13)
[2021-05-28] MEDS: HEPARIN 5,000 UNIT/1 ML VIAL SUB-Q SCH ×2 (10:13→21:43)
[2021-05-28] MEDS: ASCORBIC ACID 500 MG TAB PO SCH ×2 (10:13→21:47)
[2021-05-28] MEDS: FAMOTIDINE 20 MG TAB PO SCH (10:13)
[2021-05-28] MEDS: CHOLECALCIFEROL (VIT D3) 1000 UNIT (25 mcg) TAB PO SCH (10:14)
--- NOTE | 2021-05-28 10:27 | Electrocardiograph Report ---
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
--- NOTE | 2021-05-28 10:46 | Progress Note ---
Assessment and Plan 1. Acute kidney injury: Vasomotor SIXTO in the volume depletion / dehydration. CT abdomen negative for hydro. Creatinine level was normal in 2019. Monitor renal function. Creatinine level is improving. Non-oliguric. Renal prognosis is guarded. Avoid nephrotoxic agents. Meds dosage based on GFR. Monitor for PARADICHLOROBENZENE TENDER needs. 2. FEN: Hypernatremia, monitor. Sodium level decreased by 20 meq since yesterday. IV D5W stopped. Follow Sodium level. Metabolic acidosis, monitor. Lactic acidosis. Monitor lytes. 3. Acute respiratory failure with hypoxia: 2/2 PNA. Intubated, on vent. 4. Pneumonia, POA: Covid test negative. Abx. Follow cultures. 5. Elevated Troponin: Monitor. 6. Hypertension: Monitor BP. Meds as appropriate. 7. Acute metabolic Encephalopathy, POA: Monitor. Prognosis guarded. Subjective: Patient was seen and examined at the bedside. RN at the bedside. Examination: General appearance: well-developed, thin built, appears stated age, intubated, on vent HEENT: ATNC, pupils equal Neck: supple Respiratory: coarse breath sounds Cardiology: regular, S1S2, no murmur Gastrointestinal: soft, bowel sounds heard, not tender Integumentary: no rash, warm and dry Neurologic: not responding Ext: no edema : Cast catheter Subjective Date of service: 05/28/21 Objective - Vital Signs Vital signs: Vital Signs - 12hr 05/27/21 05/27/21 05/27/21 23:00 23:06 23:23 Temperature 97.9 F Pulse Rate 77 74 Respiratory 17 16 Rate Blood Pressure 129/70 129/70 O2 Sat by Pulse 100 100 Oximetry 05/27/21 05/27/21 05/28/21 23:30 23:50 00:00 Temperature Pulse Rate 76 77 77 Respiratory 16 17 Rate Blood Pressure 129/70 129/70 126/67 O2 Sat by Pulse 100 100 100 Oximetry 05/28/21 05/28/21 05/28/21 00:30 01:00 01:30 Temperature Pulse Rate 76 75 73 Respiratory 17 16 15 Rate Blood Pressure 126/67 133/69 133/69 O2 Sat by Pulse 100 100 100 Oximetry 05/28/21 05/28/21 05/28/21 02:00 02:30 03:00 Temperature Pulse Rate 74 71 74 Respiratory 16 16 16 Rate Blood Pressure 129/70 129/70 134/70 O2 Sat by Pulse 100 100 100 Oximetry 05/28/21 05/28/21 05/28/21 03:01 03:30 03:43 Temperature 98.5 F Pulse Rate 74 74 Respiratory 17 Rate Blood Pressure 134/70 134/70 O2 Sat by Pulse 100 100 Oximetry 05/28/21 05/28/21 05/28/21 04:06 04:30 05:00 Temperature Pulse Rate 71 70 70 Respiratory 16 16 17 Rate Blood Pressure 149/66 147/74 O2 Sat by Pulse 100 98 98 Oximetry 05/28/21 05/28/21 05/28/21 05:30 06:00 06:30 Temperature Pulse Rate 71 73 69 Respiratory 18 17 19 Rate Blood Pressure 147/74 152/75 152/75 O2 Sat by Pulse 99 99 99 Oximetry 05/28/21 05/28/21 05/28/21 07:00 07:30 08:00 Temperature 98.2 F Pulse Rate 70 70 65 Respiratory 19 17 15 Rate Blood Pressure 150/71 150/71 150/75 O2 Sat by Pulse 100 100 99 Oximetry 05/28/21 05/28/21 05/28/21 08:30 08:50 09:00 Temperature Pulse Rate 75 75 69 Respiratory 12 17 17 Rate Blood Pressure 150/75 150/75 143/68 O2 Sat by Pulse 100 100 100 Oximetry 05/28/21 05/28/21 09:30 10:00 Temperature Pulse Rate 66 62 Respiratory 18 24 Rate Blood Pressure 143/68 128/68 O2 Sat by Pulse 100 100 Oximetry - Lab 05/27/21 02:00 05/28/21 08:47 Most recent lab results ABG pH 7.413 (7.320-7.450) 05/28/21 03:19 ABG O2 Saturation 98.1 (0-100) 05/28/21 03:19 Calcium 6.3 mg/dL (8.4-10.2) L 05/28/21 08:47 Phosphorus 3.90 mg/dL (2.5-4.5) D 05/28/21 08:47 Urine Creatinine 51.6 mg/dL (0.1-20.0) H 05/26/21 Unknown Urine Sodium 96 mmol/L 05/26/21 Unknown Medications & Allergies - Medications Allergies/Adverse Reactions: Allergies No Known Allergies Allergy (Unverified 05/26/21 18:11) Home Medications: Home Medications Medication Instructions Recorded Confirmed Last Taken Type No Known Home Medications [No 05/26/21 05/26/21 Unknown History Reported Home Medications] Active Medications: Generic Name Dose Route Start Last Admin Trade Name Freq PRN Reason Stop Dose Admin Acetaminophen 650 mg 05/26/21 18:34 Acetaminophen 650 Mg Rect Supp ND Q6H PRN Pain MILD(1-3)/Fever >100.5/JONES Albuterol 2.5 mg 05/26/21 18:34 Albuterol 2.5 Mg/3 Ml Nebu IH Q3HRT PRN Shortness Of Breath Lipase/Protease/Amylase 1 each 05/28/21 08:24 Lipase 10,500/Protease 25,000/Amylase 43,750 (Units) Dr De Leon FEEDTUBE PRN PRN For Clogged Feeding Tube Ascorbic Acid 500 mg 05/26/21 22:00 05/28/21 10:13 Ascorbic Acid 500 Mg Tab PO 500 mg BID ONDINA Administration Cholecalciferol 1,000 unit 05/27/21 10:00 05/28/21 10:14 Cholecalciferol (Vit D3) 1000 Unit (25 Mcg) Tab PO 1,000 unit QDAY ONDINA Administration Famotidine 20 mg 05/28/21 10:00 05/28/21 10:13 Famotidine 20 Mg Tab PO 20 mg DAILY ONDINA Administration Fentanyl 50 mcg 05/26/21 17:02 Fentanyl 100 Mcg/2 Ml Inj IV Q10MIN PRN ANALGESIA Heparin Sodium (Porcine) 5,000 unit 05/26/21 22:00 05/28/21 10:13 Heparin 5,000 Unit/1 Ml Vial SUB-Q 5,000 unit Q12HR ONDINA Administration Hydrophilic Ointment 1 applic 05/26/21 17:02 Lip Therapy Vaseline TP Q2HR PRN Dry Lips Fentanyl Citrate 2,000 mcg in 100 mls @ 2.268 mls/hr 05/26/21 18:00 05/27/21 15:30 Fentanyl Drip Premix IV 0 mcg/kg/hr TITR ONDINA 0 mls/hr Titration Protocol 1 MCG/KG/HR Cefepime HCl 1 gm in 100 mls @ 200 mls/hr 05/27/21 18:00 05/27/21 17:08 Cefepime/Ns 1 Gm/100 Ml IV 06/02/21 18:29 200 mls/hr Q24H ONDINA Administration Protocol Multi-Ingred Cream/Lotion/Oil/Oint 1 applic 05/26/21 17:02 Mineral Oil/Petrolatum, White Ophth Oint 3.5 Gm OU Q4HR PRN Dry Eye(s) Pneumococcal Polyvalent Vaccine 0.5 ml 05/28/21 12:00 Pneumococcal 23 Valent 0.5 Ml Vial IM 05/28/21 12:01 .ONCE ONE Senna/Docusate Sodium 1 tab 05/26/21 22:00 05/28/21 10:13 Sennosides/Docusate Sodium 8.6/50 Mg Tab FEEDTUBE 1 tab BID ONDINA Administration Simple Syrup 15 ml 05/28/21 08:24 Simple Syrup 15 Ml FEEDTUBE PRN PRN Hypoglycemia Simple Syrup 30 ml 05/28/21 08:24 Simple Syrup 15 Ml FEEDTUBE PRN PRN Hypoglycemia Sodium Bicarbonate 325 mg 05/28/21 08:24 Sodium Bicarbonate 325 Mg Tab FEEDTUBE PRN PRN For Clogged Feeding Tube Sodium Chloride 10 ml 05/26/21 22:00 05/28/21 10:14 Sodium Chloride 0.9% 10 Ml Flush Syringe IV 10 ml BID ONDINA Administration Sodium Chloride 10 ml 05/26/21 18:34 Sodium Chloride 0.9% 10 Ml Flush Syringe IV PRN PRN LINE FLUSH Zinc Sulfate 220 mg 05/26/21 22:00 05/28/21 10:13 Zinc Sulfate 220 Mg Cap PO 220 mg BID ONDINA Administration
[2021-05-28] MEDS ORDERED: CALCIUM GLUCONATE 2,000 MG in SODIUM CHLORIDE 0.9% 100 ML IV ONE (11:30)
[2021-05-28] MEDS ORDERED: PNEUMOCOCCAL 23 Valent 0.5 ML VIAL IM ONE (12:00)
[2021-05-28] MEDS: fentaNYL 100 MCG/2 ML INJ IV PRN ×2 (15:10→16:38)
[2021-05-28] MEDS: CEFEPIME/NS 1 GM/100 ML 1 GM/100 ML BAG IV SCH (18:38)
[2021-05-28] MEDS ORDERED: SODIUM CHLORIDE 1 GM TAB FEEDTUBE ONE (20:00)
--- NOTE | 2021-05-29 03:00 | XRay Report ---
XR chest 1V ap INDICATION / CLINICAL INFORMATION: follow up respiratory failure. COMPARISON: Radiograph from yesterday. FINDINGS: SUPPORT DEVICES: Unchanged. HEART /PULMONARY VASCULATURE: No significant abnormality. LUNGS / PLEURA: Mild pulmonary airspace opacities are unchanged. No new or increasing airspace consol idation. No pleural effusion or pneumothorax. IMPRESSION: 1. No significant interval change. Signer Name: Curtis Amezcua MD Signed: 05/29/2021 2:55 AM Workstation Name: [id number]
[2021-05-29 05:27] LABS: Calcium 6.8 mg/dL (8.4-10.2)
[2021-05-29] MEDS ORDERED: VANCOMYCIN 750 MG in SODIUM CHLORIDE 0.9% 250ML 250 ML IV ONE (08:30)
--- NOTE | 2021-05-29 09:00 | Progress Note ---
Assessment and Plan Assessment and plan: Acute hypoxemic respiratory failure Sepsis Bilateral pneumonia. COVID-19 testing negative. Acute kidney injury/ATN Severe hypernatremia UTI 05/27/2021. Patient with severe hypernatremia secondary to dehydration/vasomotor nephropathy. Continue IV fluid hydration per nephrology recommendations. Malachi webber with a creatinine September 2019 of 0.7. On this admission patient was noted to have a creatinine of 5.4. Slightly improved today to 4.2. Etiology secondary to vasomotor nephropathy/acute kidney injury/volume depletion/dehydration. Follow-up urine studies. CT scan of the abdomen pelvis did not reveal any obstruction. CT chest revealed bilateral pulmonary opacities. Patient with elevated D-dimer that may be secondary to Covid coagulopathy. Consider VQ scan. Unable to perform CTA given renal insufficiency. Await pulmonary consultation 05/28/2021. Hyponatremia has improved to 159. Continue IV fluid hydration per nephrology recommendations. Creatinine has also improved to 2.9. No obstruction per CT scan. COVID-19 testing negative on 05/27/2021. Continue IV antibiotics for bilateral pneumonia and UTI. Follow-up blood and urine cultures. Consider ID consultation patient remains on mechanical ventilation but undergoing PSV trials. Patient currently with PSV with FiO2 of 30% PEEP of 6 and pressure support of 10. Continue vent weaning per pulmonary. 05/29/2021. Hypernatremia persists with sodium improving to 154 yesterday evening but now back to 159. Creatinine has improved to 2.4. Nephrology following.Continue current antibiotics for pneumonia and UTI. Consider CTA of chest for elevated D-dimer when creatinine back to baseline. Patient currently on AC mode ventilation rate of 16, tidal volume 450, FiO2 30% and PEEP of 6. The high probability of a clinically significant, sudden or life threatening deterioration of the [respiratory, renal and electrolyte] system(s) required my full and direct attention, intervention and personal management. The aggregate critical care time was [33] minutes. This time is in addition to time spent performing reported procedures but includes the following: [x] Data Review and interpretation [x] Patient assessment and monitoring of vital signs [x] Documentation [x] Medication orders and management History Interval history: No new issues overnight Hospitalist Physical - Constitutional Vitals: Temp Pulse Resp BP Pulse Ox 99.5 F 92 H 27 H 148/74 100 05/29/21 07:49 07/10/21 08:31 05/29/21 08:31 05/29/21 08:31 05/29/21 08:31 General appearance: Present: severe distress - EENT Eyes: Present: PERRL, EOM intact ENT: hearing intact, clear oral mucosa, dentition normal - Neck Neck: Present: supple, normal ROM - Respiratory Respiratory effort: normal Respiratory: bilateral: CTA - Cardiovascular Rhythm: regular Heart Sounds: Present: S1 & S2. Absent: gallop, rub - Extremities Extremities: no ischemia, No edema, Full ROM - Abdominal General gastrointestinal: soft, non-tender, non-distended, normal bowel sounds - Integumentary Integumentary: Present: clear, warm, dry - Neurologic Neurologic: CNII-XII intact, moves all extremities HEART Score - HEART Score Troponin: Troponin T 0.038 ng/mL (0.00-0.029) H 05/26/21 17:08 Results - Labs CBC & Chem 7: 05/27/21 02:00 05/29/21 04:15 Labs: Laboratory Last Values WBC 27.1 K/mm3 (4.5-11.0) H 05/27/21 02:00 RBC 4.10 M/mm3 (3.65-5.03) 05/27/21 02:00 Hgb 11.1 gm/dl (11.8-15.2) L 05/27/21 02:00 Hct 35.6 % (35.5-45.6) 05/27/21 02:00 MCV 87 fl (84-94) 05/27/21 02:00 MCH 27 pg (28-32) L 05/27/21 02:00 MCHC 31 % (32-34) L 05/27/21 02:00 RDW 16.1 % (13.2-15.2) H 05/27/21 02:00 Plt Count 62 K/mm3 (140-440) L 05/27/21 02:00 Lymph % (Auto) 30.3 % (13.4-35.0) 05/26/21 17:08 [place] % (Auto) 6.1 % (0.0-7.3) 05/26/21 17:08 Eos % (Auto) 1.0 % (0.0-4.3) 05/26/21 17:08 Baso % (Auto) 0.5 % (0.0-1.8) 05/26/21 17:08 Lymph # (Auto) 3.0 K/mm3 (1.2-5.4) 05/26/21 17:08 [place] # (Auto) 0.6 K/mm3 (0.0-0.8) 05/26/21 17:08 Eos # (Auto) 0.1 K/mm3 (0.0-0.4) 05/26/21 17:08 Baso # (Auto) 0.1 K/mm3 (0.0-0.1) 05/26/21 17:08 Add Manual Diff Complete 05/27/21 02:00 Total Counted 100 05/27/21 02:00 Seg Neutrophils % Jockey Agent 05/27/21 02:00 Seg Neuts % (Manual) 93.0 % (40.0-70.0) H 05/27/21 02:00 Lymphocytes % (Manual) 3.0 % (13.4-35.0) L 05/27/21 02:00 Monocytes % (Manual) 4.0 % (0.0-7.3) 05/27/21 02:00 Nucleated RBC % Not Reportable 05/27/21 02:00 Seg Neutrophils # 6.1 K/mm3 (1.8-7.7) 05/26/21 17:08 Seg Neutrophils # Man 25.2 K/mm3 (1.8-7.7) H 05/27/21 02:00 Band Neutrophils # 0.0 K/mm3 05/27/21 02:00 Lymphocytes # (Manual) 0.8 K/mm3 (1.2-5.4) L 05/27/21 02:00 Abs React Lymphs (Man) 0.0 K/mm3 05/27/21 02:00 Monocytes # (Manual) 1.1 K/mm3 (0.0-0.8) H 05/27/21 02:00 Eosinophils # (Manual) 0.0 K/mm3 (0.0-0.4) 05/27/21 02:00 Basophils # (Manual) 0.0 K/mm3 (0.0-0.1) 05/27/21 02:00 Metamyelocytes # 0.0 K/mm3 05/27/21 02:00 Myelocytes # 0.0 K/mm3 05/27/21 02:00 Promyelocytes # 0.0 K/mm3 05/27/21 02:00 Blast Cells # 0.0 K/mm3 05/27/21 02:00 WBC Morphology Not Reportable 05/27/21 02:00 Hypersegmented Neuts Not Reportable 05/27/21 02:00 Hyposegmented Neuts Not Reportable 05/27/21 02:00 Hypogranular Neuts Not Reportable 05/27/21 02:00 Smudge Cells Not Reportable 05/27/21 02:00 Toxic Granulation Not Reportable 05/27/21 02:00 Toxic Vacuolation Not Reportable 05/27/21 02:00 Dohle Bodies Not Reportable 05/27/21 02:00 Pelger-Huet Anomaly Not Reportable 05/27/21 02:00 Daniel Rods Not Reportable 05/27/21 02:00 Platelet Estimate Not Reportable 05/27/21 02:00 Clumped Platelets Not Reportable 05/27/21 02:00 Plt Clumps, EDTA Not Reportable 05/27/21 02:00 Large Platelets Not Reportable 05/27/21 02:00 Giant Platelets Not Reportable 05/27/21 02:00 Platelet Satelliting Not Reportable 05/27/21 02:00 Plt Morphology Comment Not Reportable 05/27/21 02:00 RBC Morphology Normal 05/27/21 02:00 Dimorphic RBCs Not Reportable 05/27/21 02:00 Polychromasia Not Reportable 05/27/21 02:00 Hypochromasia Not Reportable 05/27/21 02:00 Poikilocytosis Not Reportable 05/27/21 02:00 Anisocytosis Not Reportable 05/27/21 02:00 Microcytosis Not Reportable 05/27/21 02:00 Macrocytosis Not Reportable 05/27/21 02:00 Spherocytes Not Reportable 05/27/21 02:00 Pappenheimer Bodies Not Reportable 05/27/21 02:00 Sickle Cells Not Reportable 05/27/21 02:00 Target Cells Not Reportable 05/27/21 02:00 Tear Drop Cells Not Reportable 05/27/21 02:00 Ovalocytes Not Reportable 05/27/21 02:00 Helmet Cells Not Reportable 05/27/21 02:00 [place] Bodies Not Reportable 05/27/21 02:00 [place] Rings Not Reportable 05/27/21 02:00 [place] Cells Not Reportable 05/27/21 02:00 Bite Cells Not Reportable 05/27/21 02:00 Crenated Cell Not Reportable 05/27/21 02:00 Elliptocytes Not Reportable 05/27/21 02:00 Acanthocytes (Spur) Not Reportable 05/27/21 02:00 Rouleaux Not Reportable 05/27/21 02:00 Hemoglobin C Crystals Not Reportable 05/27/21 02:00 Schistocytes Not Reportable 05/27/21 02:00 Malaria parasites Not Reportable 05/27/21 02:00 Arik Bodies Not Reportable 05/27/21 02:00 Hem Pathologist Commnt No 05/27/21 02:00 APTT 42.4 Sec. (24.2-36.6) H 05/26/21 17:08 D-Dimer 8255.81 ng/mlDDU (0-234) H 05/26/21 17:08 ABG pH 7.481 (7.320-7.450) H 05/29/21 02:59 POC ABG pCO2 24.6 mmHg (32.0-48.0) L 05/29/21 02:59 POC ABG pO2 94.7 mmHg (83-108) 05/29/21 02:59 POC ABG HCO3 18.0 05/29/21 02:59 ABG O2 Saturation 97.0 (0-100) 05/29/21 02:59 POC ABG Base Excess -4.3 05/29/21 02:59 ABG Hemoglobin 10.6 (12.0-17.5) L 05/29/21 02:59 ABG Oxyhemoglobin 96.4 (94-98) 05/29/21 02:59 ABG Methemoglobin 0.3 (0.0-1.5) 05/29/21 02:59 ABG Sodium 149.5 mmol/L (136.0-145.0) H 05/29/21 02:59 ABG Potassium 3.8 mmol/L (3.40-4.50) 05/29/21 02:59 ABG Chloride 122.0 mmol/L (98-107) H 05/29/21 02:59 ABG Glucose 129 mg/dL (65-95) H 05/29/21 02:59 Carboxyhemoglobin 0.3 (0.5-1.5) L 05/29/21 02:59 FiO2 % 30.0 05/29/21 02:59 Sodium 159 mmol/L (137-145) H 05/29/21 04:15 Potassium 3.9 mmol/L (3.6-5.0) 05/29/21 04:15 Chloride 124.0 mmol/L (98-107) H 05/29/21 04:15 Carbon Dioxide 21 mmol/L (22-30) L 05/29/21 04:15 Anion Gap 18 mmol/L 05/29/21 04:15 BUN 88 mg/dL (9-20) H 05/29/21 04:15 Creatinine 2.4 mg/dL (0.8-1.3) H 05/29/21 04:15 Estimated GFR 26 ml/min 05/29/21 04:15 BUN/Creatinine Ratio 37 % 05/29/21 04:15 Glucose 136 mg/dL (75-100) H 05/29/21 04:15 POC Glucose 138 mg/dL (70-105) H 05/29/21 05:13 Lactic Acid 1.60 mmol/L (0.7-2.0) 05/27/21 12:08 Calcium 6.8 mg/dL (8.4-10.2) L 05/29/21 04:15 Phosphorus 3.90 mg/dL (2.5-4.5) D 05/28/21 08:47 Ferritin 598.3 ng/mL (30.0-300.0) H 05/26/21 17:08 Total Bilirubin 0.50 mg/dL (0.1-1.2) 05/27/21 02:00 AST 66 units/L (5-40) H 05/27/21 02:00 ALT 64 units/L (7-56) H 05/27/21 02:00 Alkaline Phosphatase 126 units/L (35-129) 05/27/21 02:00 Ammonia 46.0 umol/L (25-60) 05/26/21 17:08 Lactate Dehydrogenase 550 units/L (91-180) H 05/26/21 17:08 Troponin T 0.038 ng/mL (0.00-0.029) H 05/26/21 17:08 C-Reactive Protein 4.20 mg/dL (0.00-1.30) H 05/26/21 17:08 Total Protein 6.6 g/dL (6.3-8.2) 05/27/21 02:00 Albumin 2.9 g/dL (3.9-5) L 05/27/21 02:00 Albumin/Globulin Ratio 0.8 % 05/27/21 02:00 Triglycerides 150 mg/dL (2-149) H 05/26/21 17:08 Cholesterol 145 mg/dL (50-199) 05/26/21 17:08 LDL Cholesterol Direct 84 mg/dL (50-130) 05/26/21 17:08 HDL Cholesterol 24 mg/dL (40-59) L 05/26/21 17:08 Cholesterol/HDL Ratio 6.04 % 05/26/21 17:08 Procalcitonin 0.29 ng/mL (<0.15) 05/26/21 17:08 TSH 0.342 mlU/mL (0.270-4.200) 05/26/21 17:08 Arterial Blood Glucose 129 mg/dL (65-95) H 05/29/21 02:59 Arterial Blood Ionized Calcium 3.8 mg/dL (4.6-5.3) L 05/29/21 02:59 Urine Color Yellow (Yellow) 05/26/21 Unknown Urine Turbidity Clear (Clear) 05/26/21 Unknown Urine pH 5.0 (5.0-7.0) 05/26/21 Unknown Ur Specific [place] 1.011 (1.003-1.030) 05/26/21 Unknown Urine Protein <15 mg/dl mg/dL (Negative) 05/26/21 Unknown Urine Glucose (UA) Neg mg/dL (Negative) 05/26/21 Unknown Urine Ketones Neg mg/dL (Negative) 05/26/21 Unknown Urine Blood Sm (Negative) 05/26/21 Unknown Urine Nitrite Neg (Negative) 05/26/21 Unknown Urine Bilirubin Neg (Negative) 05/26/21 Unknown Urine Urobilinogen < 2.0 mg/dL (<2.0) 05/26/21 Unknown Ur Leukocyte Esterase Neg (Negative) 05/26/21 Unknown Urine WBC (Auto) 16.0 /HPF (0.0-6.0) H 05/26/21 Unknown Urine RBC (Auto) 2.0 /HPF (0.0-6.0) 05/26/21 Unknown Urine Bacteria (Auto) 1+ /HPF (Negative) 05/26/21 Unknown Urine Osmolality 392 Mosm/kg 05/26/21 Unknown Urine Creatinine 51.6 mg/dL (0.1-20.0) H 05/26/21 Unknown Urine Sodium 96 mmol/L 05/26/21 Unknown Random Vancomycin 12.5 ug/mL (0-40.0) 05/28/21 08:47 Salicylates < 0.3 mg/dL (2.8-20.0) L 05/26/21 17:08 Acetaminophen < 5.0 ug/mL (10.0-30.0) L 05/26/21 17:08 Coronavirus (PCR) Negative (Negative) 05/27/21 Unknown Blood Type O POSITIVE 05/26/21 17:00 Antibody Screen Negative 05/26/21 17:00 Microbiology: Microbiology 05/26/21 17:05 Peripheral/Venous Blood Culture - Preliminary NO GROWTH AFTER 48 HOURS 05/26/21 17:37 Sputum - Endotracheal Wash Sputum Culture - Preliminary Gram Negative Kurt Staphylococcus Aureus 05/26/21 20:18 Urine,Catheterized - Straight Catheter Urine Culture - Preli minary NO GROWTH AFTER 24 HOURS 05/26/21 17:08 Peripheral/Venous Blood Culture - Preliminary Cast/IV: Voiding Method Condom Catheter Active Medications - Current Medications Current Medications: Generic Name Dose Route Start Last Admin Trade Name Freq PRN Reason Stop Dose Admin Acetaminophen 650 mg 05/26/21 18:34 Acetaminophen 650 Mg Rect Supp MA Q6H PRN Pain MILD(1-3)/Fever >100.5/JONES Albuterol 2.5 mg 05/26/21 18:34 Albuterol 2.5 Mg/3 Ml Nebu IH Q3HRT PRN Shortness Of Breath Lipase/Protease/Amylase 1 each 05/28/21 08:24 Lipase 10,500/Protease 25,000/Amylase 43,750 (Units) Dr De Leon FEEDTUBE PRN PRN For Clogged Feeding Tube Ascorbic Acid 500 mg 05/26/21 22:00 05/28/21 21:47 Ascorbic Acid 500 Mg Tab PO 500 mg BID ONDINA Administration Cholecalciferol 1,000 unit 05/27/21 10:00 05/28/21 10:14 Cholecalciferol (Vit D3) 1000 Unit (25 Mcg) Tab PO 1,000 unit QDAY ONDINA Administration Famotidine 20 mg 05/28/21 10:00 05/28/21 10:13 Famotidine 20 Mg Tab PO 20 mg DAILY ONDINA Administration Fentanyl 50 mcg 05/26/21 17:02 05/28/21 16:38 Fentanyl 100 Mcg/2 Ml Inj IV 50 mcg Q10MIN PRN Administration ANALGESIA Heparin Sodium (Porcine) 5,000 unit 05/26/21 22:00 05/28/21 21:43 Heparin 5,000 Unit/1 Ml Vial SUB-Q 5,000 unit Q12HR ONDINA Administration Hydrophilic Ointment 1 applic 05/26/21 17:02 Lip Therapy Vaseline TP Q2HR PRN Dry Lips Fentanyl Citrate 2,000 mcg in 100 mls @ 2.268 mls/hr 05/26/21 18:00 05/28/21 12:16 Fentanyl Drip Premix IV 0 mcg/kg/hr TITR ONDINA 0 mls/hr Titration Protocol 1 MCG/KG/HR Cefepime HCl 1 gm in 100 mls @ 200 mls/hr 05/27/21 18:00 05/28/21 18:38 Cefepime/Ns 1 Gm/100 Ml IV 06/02/21 18:29 200 mls/hr Q24H ONDINA Administration Protocol Vancomycin HCl 750 mg/ Sodium 265 mls @ 166.667 mls/hr 05/29/21 08:30 Chloride IV 05/29/21 10:05 ONCE ONE Multi-Ingred Cream/Lotion/Oil/Oint 1 applic 05/26/21 17:02 Mineral Oil/Petrolatum, White Ophth Oint 3.5 Gm OU Q4HR PRN Dry Eye(s) Senna/Docusate Sodium 1 tab 05/26/21 22:00 05/28/21 10:13 Sennosides/Docusate Sodium 8.6/50 Mg Tab FEEDTUBE 1 tab BID ONDINA Administration Simple Syrup 15 ml 05/28/21 08:24 Simple Syrup 15 Ml FEEDTUBE PRN PRN Hypoglycemia Simple Syrup 30 ml 05/28/21 08:24 Simple Syrup 15 Ml FEEDTUBE PRN PRN Hypoglycemia Sodium Bicarbonate 325 mg 05/28/21 08:24 Sodium Bicarbonate 325 Mg Tab FEEDTUBE PRN PRN For Clogged Feeding Tube Sodium Chloride 10 ml 05/26/21 22:00 05/28/21 21:48 Sodium Chloride 0.9% 10 Ml Flush Syringe IV 10 ml BID ONDINA Administration Sodium Chloride 10 ml 05/26/21 18:34 Sodium Chloride 0.9% 10 Ml Flush Syringe IV PRN PRN LINE FLUSH Zinc Sulfate 220 mg 05/26/21 22:00 05/28/21 21:47 Zinc Sulfate 220 Mg Cap PO 220 mg BID ONDINA Administration Nutrition/Malnutrition Assess - Dietary Evaluation Nutrition/Malnutrition Findings: Nutrition Notes Start: 05/27/21 08:35 Freq: Status: Active Protocol: Document 05/28/21 08:22 MARLEN (Rec: 05/28/21 08:24 MARLEN [id number]) Nutrition Notes Need for Assessment generated from: MD Order Initial or Follow up Reassessment Current Diagnosis Acute Kidney Injury,Sepsis, Hypertension,Respiratory Failure Other Pertinent Diagnosis UTI, encephalopathy, dehydration, COVID PUI Current Diet NPO Labs/Tests No new labs Pertinent Medications D5w at 75 ml/hr Height 5 ft 2 in Weight 45.359 kg [place] Body Weight (kg) 53.63 BMI 18.3 Weight Status Underweight Subjective/Other Information MD order for TF. Pt remains on vent. Burn Absent Trauma Absent Current % PO Negligible Minimum of two criteria No physical signs of malnutrition #1 Nutrition Diagnosis Inadequate oral intake Diagnosis Progress(for reassessment Continues documentation) Is patient on ventilator? Yes Is Patient Ambulatory and/or Out of Bed No REE-([facility]-confined to bed) [phone] Calculation Used for Recommendations [facility] Additional Notes Protein: (1.2-2g/kg) 54-91g Fluid: 1 ml/kcal or per MD Nutrition Intervention Change Diet Order: Start TF Nutrition Support: Nepro 1.8 at 30 ml/hr Flush 200 ml q4h for hypernatermia, once resolved, flush 100 ml q4h or per MD Kcal 1,296 Protein (gm) 58 Fluid (mL) 523 Goal #1 Meet at least 75% of protein and energy needs via TF Anticipated Discharge Needs: Unable to determine at this time Follow-Up By: 05/31/21 Additional Comments FU for TF start and tolerance
[2021-05-29] MEDS: FAMOTIDINE 20 MG TAB PO SCH (09:36)
[2021-05-29] MEDS: ASCORBIC ACID 500 MG TAB PO SCH ×2 (09:37→21:43)
[2021-05-29] MEDS: HEPARIN 5,000 UNIT/1 ML VIAL SUB-Q SCH ×2 (09:37→21:44)
[2021-05-29] MEDS: CHOLECALCIFEROL (VIT D3) 1000 UNIT (25 mcg) TAB PO SCH (09:37)
[2021-05-29] MEDS: ZINC SULFATE 220 MG CAP PO SCH ×2 (09:38→21:43)
[2021-05-29] MEDS: SENNOSIDES/DOCUSATE SODIUM 8.6/50 MG TAB FEEDTUBE SCH ×2 (09:38→21:43)
--- NOTE | 2021-05-29 11:15 | Progress Note ---
Assessment and Plan Acute hypoxemic resp failure on MVS Acute metabolic encephalopathy Sepsis Acute kidney injury (SIXTO) with acute tubular necrosis (ATN) Hypernatremia Pneumonia UTI (urinary tract infection) Protein calorie malnutrition Thrombocytopenia -Titrate supplemental oxygen to keep SpO2 89-92% -VAP bundle addressed, aspiration precautions HOB >30 -Lung protective strategies - Daily SAT and SBT daily -Nutritional support-enteric nutritional support -Glycemic control. Accucheck, target blood glucose <180mg/dL, avoid hypoglycemia -VTE prophylaxis- Heparin -Stress ulcer prophylaxis-Famotidine -Mobility, off loading with frequent turning per facility protocol for pressure ulcer prevention (he is a high risk patient) -Avoid delirium, maintain sleep-wake cycle, avoid benzodiazepines -Supportive transfusions as clinically indicated to keep HgB >7g/dL -Chronic home medications as clinically indicated -Bladder scan q shift, start Flomax -Complete antibiotics- Cefepime 01/24 and Vancomycin 01/24 -Avoid nephrotoxins, adjust medications for CrCl/GFR -Continue with free water flushes and hypotonic solution. Goal to correct sodium by 8-10mEq every 24 hours. Continue [id number] CONDITION: CRITICAL PROGNOSIS: GUARDED CODE STATUS: FULL CODE The high probability of a clinically significant, sudden or life threatening det erioration of the [pulmonary,cardiovascular, renal, neurology] system(s) required my full and direct attention, intervention and personal management. The aggregate critical care time was [35] minutes. This time is in addition to time spent performing reported procedures but includes the following: [x] Data Review and interpretation [x] Patient assessment and monitoring of vital signs [x] Documentation [x] Medication orders and management Subjective Date of service: 05/29/21 Interval history: Follow up fro acute hypoxemic resp failure on MVS; severe hypernatrmia: acute encephalopathy: SIXTO Seen and examined. Vitals, labs, medications, chart and imaging reviewed. Discussed with nursing and respiratory staff,tolerating CPAP trials but mental status changes persist No fevers overnight, remains unresponsive. No diarrhea, no vomiting. Remains orally intubated. Bladder scan of 900 ml this morning COVID negative, Objective Vital Signs - 12hr 05/28/21 05/28/21 05/29/21 23:30 23:36 00:00 Temperature 99.7 F H Pulse Rate 78 78 Pulse Rate [ 77 From Monitor] Respiratory 20 21 Rate Blood Pressure 130/58 124/52 O2 Sat by Pulse 100 100 Oximetry 05/29/21 05/29/21 05/29/21 00:06 00:30 01:00 Temperature Pulse Rate 77 74 71 Pulse Rate [ From Monitor] Respiratory 22 19 Rate Blood Pressure 130/58 124/52 132/46 O2 Sat by Pulse 100 100 100 Oximetry 05/29/21 05/29/21 05/29/21 01:30 02:00 02:30 Temperature Pulse Rate 76 78 80 Pulse Rate [ From Monitor] Respiratory 22 20 24 Rate Blood Pressure 132/46 135/55 135/55 O2 Sat by Pulse 100 100 100 Oximetry 05/29/21 05/29/21 05/29/21 03:00 03:23 03:30 Temperature 99.3 F Pulse Rate 78 81 Pulse Rate [ From Monitor] Respiratory 20 21 Rate Blood Pressure 138/54 138/54 O2 Sat by Pulse 100 100 Oximetry 05/29/21 05/29/21 05/29/21 04:00 04:05 04:30 Temperature Pulse Rate 80 79 76 Pulse Rate [ 76 From Monitor] Respiratory 20 19 Rate Blood Pressure 143/61 143/61 143/61 O2 Sat by Pulse 100 100 100 Oximetry 05/29/21 05/29/21 05/29/21 05:00 05:30 06:00 Temperature Pulse Rate 76 78 74 Pulse Rate [ From Monitor] Respiratory 20 20 19 Rate Blood Pressure 138/62 138/62 139/64 O2 Sat by Pulse 100 100 100 Oximetry 05/29/21 05/29/21 05/29/21 06:31 07:00 07:31 Temperature Pulse Rate 77 75 78 Pulse Rate [ From Monitor] Respiratory 22 23 24 Rate Blood Pressure 139/64 150/58 150/58 O2 Sat by Pulse 100 100 100 Oximetry 05/29/21 05/29/21 05/29/21 07:49 07:51 08:01 Temperature 99.5 F Pulse Rate 87 89 Pulse Rate [ From Monitor] Respiratory 24 Rate Blood Pressure 150/58 165/74 O2 Sat by Pulse 100 100 Oximetry 05/29/21 05/29/21 05/29/21 08:10 08:31 09:00 Temperature Pulse Rate 95 H 92 H 87 Pulse Rate [ From Monitor] Respiratory 32 H 27 H 26 H Rate Blood Pressure 157/71 148/74 157/71 O2 Sat by Pulse 100 100 100 Oximetry 05/29/21 05/29/2105/29/21 09:31 10:00 10:31 Temperature Pulse Rate 92 H 92 H 96 H Pulse Rate [ From Monitor] Respiratory 32 H 31 H 34 H Rate Blood Pressure 157/71 173/68 173/68 O2 Sat by Pulse 100 100 99 Oximetry 05/29/21 11:00 Temperature Pulse Rate 95 H Pulse Rate [ From Monitor] Respiratory 32 H Rate Blood Pressure 183/74 O2 Sat by Pulse 99 Oximetry Constitutional: no acute distress, other (orally intuabted to MVS, no dys- synchrony, ETT 7.5 at 22 at the lip) Eyes: non-icteric ENT: oropharynx dry Neck: supple, no lymphadenopathy Effort: normal Ascultation: Bilateral: diminished breath sounds Cardiovascular: regular rate and rhythm, other (S1,S2) Gastrointestinal: normoactive bowel sounds, soft, non-tender, other (Cast in place) Integumentary: normal Extremities: no cyanosis, no edema Neurologic: pupils equal and round, other (encephalopathic) Psychiatric: other (unable to assess) CBC and BMP: 05/27/21 02:00 05/29/21 04:15 ABG, PT/INR, D-dimer: ABG ABG pH 7.481 (7.320-7.450) H 05/29/21 02:59 POC ABG pCO2 24.6 mmHg (32.0-48.0) L 05/29/21 02:59 POC ABG pO2 94.7 mmHg (83-108) 05/29/21 02:59 POC ABG HCO3 18.0 05/29/21 02:59 ABG O2 Saturation 97.0 (0-100) 05/29/21 02:59 PT/INR, D-dimer D-Dimer 8255.81 ng/mlDDU (0-234) H 05/26/21 17:08 Abnormal lab findings: Abnormal Labs 05/26/21 05/26/21 05/26/21 17:08 17:08 17:08 WBC Hgb MCH MCHC 31 L RDW 16.2 H Plt Count 80 L Seg Neuts % (Manual) Lymphocytes % (Manual) Seg Neutrophils # Man Lymphocytes # (Manual) Monocytes # (Manual) APTT 42.4 H D-Dimer 8255.81 H ABG pH POC ABG pCO2 POC ABG pO2 ABG Hemoglobin ABG Oxyhemoglobin ABG Sodium ABG Chloride ABG Glucose Carboxyhemoglobin Sodium 180 H* Chloride 140 H Carbon Dioxide 21 L BUN 118 H Creatinine 5.4 H Glucose 133 H POC Glucose Lactic Acid Calcium 8.1 L Phosphorus Ferritin AST 97 H ALT 71 H Alkaline Phosphatase 138 H Lactate Dehydrogenase 550 H Troponin T 0.038 H C-Reactive Protein 4.20 H Albumin 3.3 L Triglycerides 150 H HDL Cholesterol 24 L Arterial Blood Glucose Arterial Blood Ionized Calcium Urine WBC (Auto) Urine Creatinine Salicylates Acetaminophen 05/26/21 05/26/21 05/26/21 17:08 17:08 17:08 WBC Hgb MCH MCHC RDW Plt Count Seg Neuts % (Manual) Lymphocytes % (Manual) Seg Neutrophils # Man Lymphocytes # (Manual) Monocytes # (Manual) APTT D-Dimer ABG pH POC ABG pCO2 POC ABG pO2 ABG Hemoglobin ABG Oxyhemoglobin ABG Sodium ABG Chloride ABG Glucose Carboxyhemoglobin Sodium Chloride Carbon Dioxide BUN Creatinine Glucose POC Glucose Lactic Acid 3.90 H* Calcium Phosphorus Ferritin 598.3 H AST ALT Alkaline Phosphatase Lactate Dehydrogenase Troponin T C-Reactive Protein Albumin Triglycerides HDL Cholesterol Arterial Blood Glucose Arterial Blood Ionized Calcium Urine WBC (Auto) Urine Creatinine Salicylates Acetaminophen < 5.0 L 05/26/21 05/26/21 05/26/21 17:08 17:27 23:28 WBC Hgb MCH MCHC RDW Plt Count Seg Neuts % (Manual) Lymphocytes % (Manual) Seg Neutrophils # Man Lymphocytes # (Manual) Monocytes # (Manual) APTT D-Dimer ABG pH POC ABG pCO2 POC ABG pO2 453.5 H ABG Hemoglobin 11.5 L ABG Oxyhemoglobin 98.7 H ABG Sodium 198.2 H ABG Chloride ABG Glucose 116 H Carboxyhemoglobin 0.3 L Sodium Chloride Carbon Dioxide BUN Creatinine Glucose POC Glucose 182 H Lactic Acid Calcium Phosphorus Ferritin AST ALT Alkaline Phosphatase Lactate Dehydrogenase Troponin T C-Reactive Protein Albumin Triglycerides HDL Cholesterol Arterial Blood Glucose 116 H Arterial Blood Ionized Calcium Urine WBC (Auto) Urine Creatinine Salicylates < 0.3 L Acetaminophen 05/26/21 05/26/21 05/27/21 Unknown Unknown 01:58 WBC Hgb MCH MCHC RDW Plt Count Seg Neuts % (Manual) Lymphocytes % (Manual) Seg Neutrophils # Man Lymphocytes # (Manual) Monocytes # (Manual) APTT D-Dimer ABG pH POC ABG pCO2 POC ABG pO2 ABG Hemoglobin ABG Oxyhemoglobin ABG Sodium ABG Chloride ABG Glucose Carboxyhemoglobin Sodium Chloride Carbon Dioxide BUN Creatinine Glucose POC Glucose Lactic Acid 2.90 H* Calcium Phosphorus Ferritin AST ALT Alkaline Phosphatase Lactate Dehydrogenase Troponin T C-Reactive Protein Albumin Triglycerides HDL Cholesterol Arterial Blood Glucose Arterial Blood Ionized Calcium Urine WBC (Auto) 16.0 H Urine Creatinine 51.6 H Salicylates Acetaminophen 05/27/21 05/27/21 05/27/21 02:00 02:00 03:19 WBC 27.1 H Hgb 11.1 L MCH 27 L MCHC 31 L RDW 16.1 H Plt Count 62 L Seg Neuts % (Manual) 93.0 H Lymphocytes % (Manual) 3.0 L Seg Neutrophils # Man 25.2 H Lymphocytes # (Manual) 0.8 L Monocytes # (Manual) 1.1 H APTT D-Dimer ABG pH POC ABG pCO2 31.7 L POC ABG pO2 79.5 L ABG Hemoglobin 10.9 L ABG Oxyhemoglobin ABG Sodium 181.4 H ABG Chloride ABG Glucose 276 H Carboxyhemoglobin 0.1 L Sodium 180 H* Chloride 140 H Carbon Dioxide 19 L BUN 100 H Creatinine 4.3 H Glucose 272 H POC Glucose Lactic Acid Calcium 7.0 L Phosphorus 5.00 H Ferritin AST 66 H ALT 64 H Alkaline Phosphatase Lactate Dehydrogenase Troponin T C-Reactive Protein Albumin 2.9 L Triglycerides HDL Cholesterol Arterial Blood Glucose 276 H Arterial Blood Ionized Calcium 4.1 L Urine WBC (Auto) Urine Creatinine Salicylates Acetaminophen 05/27/21 05/27/21 05/27/21 08:22 08:22 12:08 WBC Hgb MCH MCHC RDW Plt Count Seg Neuts % (Manual) Lymphocytes % (Manual) Seg Neutrophils # Man Lymphocytes # (Manual) Monocytes # (Manual) APTT D-Dimer ABG pH POC ABG pCO2 POC ABG pO2 ABG Hemoglobin ABG Oxyhemoglobin ABG Sodium ABG Chloride ABG Glucose Carboxyhemoglobin Sodium 179 H* Chloride > 139 H Carbon Dioxide 21 L 19 L BUN 103 H 105 H Creatinine 4.2 H 4.2 H Glucose 271 H 217 H POC Glucose Lactic Acid 2.20 H* Calcium 7.3 L 7.0 L Phosphorus Ferritin AST ALT Alkaline Phosphatase Lactate Dehydrogenase Troponin T C-Reactive Protein Albumin Triglycerides HDL Cholesterol Arterial Blood Glucose Arterial Blood Ionized Calcium Urine WBC (Auto) Urine Creatinine Salicylates Acetaminophen 05/27/21 05/27/21 05/27/21 12:14 18:03 23:15 WBC Hgb MCH MCHC RDW Plt Count Seg Neuts % (Manual) Lymphocytes % (Manual) Seg Neutrophils # Man Lymphocytes # (Manual) Monocytes # (Manual) APTT D-Dimer ABG pH POC ABG pCO2 POC ABG pO2 ABG Hemoglobin ABG Oxyhemoglobin ABG Sodium ABG Chloride ABG Glucose Carboxyhemoglobin Sodium Chloride Carbon Dioxide BUN Creatinine Glucose POC Glucose 184 H 183 H 191 H Lactic Acid Calcium Phosphorus Ferritin AST ALT Alkaline Phosphatase Lactate Dehydrogenase Troponin T C-Reactive Protein Albumin Triglycerides HDL Cholesterol Arterial Blood Glucose Arterial Blood Ionized Calcium Urine WBC (Auto) Urine Creatinine Salicylates Acetaminophen 05/28/21 05/28/21 05/28/21 03:19 05:15 08:47 WBC Hgb MCH MCHC RDW Plt Count Seg Neuts % (Manual) Lymphocytes % (Manual) Seg Neutrophils # Man Lymphocytes # (Manual) Monocytes # (Manual) APTT D-Dimer ABG pH POC ABG pCO2 29.6 L POC ABG pO2 115.2 H ABG Hemoglobin 10.2 L ABG Oxyhemoglobin ABG Sodium 153.6 H ABG Chloride 129.0 H ABG Glucose 215 H Carboxyhemoglobin 0.3 L Sodium 159 H D Chloride 123.7 H Carbon Dioxide 20 L BUN 88 H Creatinine 2.9 H Glucose 177 H POC Glucose 184 H Lactic Acid Calcium 6.3 L Phosphorus Ferritin AST ALT Alkaline Phosphatase Lactate Dehydrogenase Troponin T C-Reactive Protein Albumin Triglycerides HDL Cholesterol Arterial Blood Glucose 215 H Arterial Blood Ionized Calcium 3.7 L Urine WBC (Auto) Urine Creatinine Salicylates Acetaminophen 05/28/21 05/28/21 05/28/21 11:50 16:27 17:23 WBC Hgb MCH MCHC RDW Plt Count Seg Neuts % (Manual) Lymphocytes % (Manual) Seg Neutrophils # Man Lymphocytes # (Manual) Monocytes # (Manual) APTT D-Dimer ABG pH POC ABG pCO2 POC ABG pO2 ABG Hemoglobin ABG Oxyhemoglobin ABG Sodium ABG Chloride ABG Glucose Carboxyhemoglobin Sodium 154 H Chloride Carbon Dioxide BUN Creatinine Glucose POC Glucose 130 H 113 H Lactic Acid Calcium Phosphorus Ferritin AST ALT Alkaline Phosphatase Lactate Dehydrogenase Troponin T C-Reactive Protein Albumin Triglycerides HDL Cholesterol Arterial Blood Glucose Arterial Blood Ionized Calcium Urine WBC (Auto) Urine Creatinine Salicylates Acetaminophen 05/28/21 05/29/21 05/29/21 23:28 02:59 04:15 WBC Hgb MCH MCHC RDW Plt Count Seg Neuts % (Manual) Lymphocytes % (Manual) Seg Neutrophils # Man Lymphocytes # (Manual) Monocytes # (Manual) APTT D-Dimer ABG pH 7.481 H POC ABG pCO2 24.6 L POC ABG pO2 ABG Hemoglobin 10.6 L ABG Oxyhemoglobin ABG Sodium 149.5 H ABG Chloride 122.0 H ABG Glucose 129 H Carboxyhemoglobin 0.3 L Sodium 159 H Chloride 124.0 H Carbon Dioxide 21 L BUN 88 H Creatinine 2.4 H Glucose 136 H POC Glucose 139 H Lactic Acid Calcium 6.8 L Phosphorus Ferritin AST ALT Alkaline Phosphatase Lactate Dehydrogenase Troponin T C-Reactive Protein Albumin Triglycerides HDL Cholesterol Arterial Blood Glucose 129 H Arterial Blood Ionized Calcium 3.8 L Urine WBC (Auto) Urine Creatinine Salicylates Acetaminophen 05/29/21 05:13 WBC Hgb MCH MCHC RDW Plt Count Seg Neuts % (Manual) Lymphocytes % (Manual) Seg Neutrophils # Man Lymphocytes # (Manual) Monocytes # (Manual) APTT D-Dimer ABG pH POC ABG pCO2 POC ABG pO2 ABG Hemoglobin ABG Oxyhemoglobin ABG Sodium ABG Chloride ABG Glucose Carboxyhemoglobin Sodium Chloride Carbon Dioxide BUN Creatinine Glucose POC Glucose 138 H Lactic Acid Calcium Phosphorus Ferritin AST ALT Alkaline Phosphatase Lactate Dehydrogenase Troponin T C-Reactive Protein Albumin Triglycerides HDL Cholesterol Arterial Blood Glucose Arterial Blood Ionized Calcium Urine WBC (Auto) Urine Creatinine Salicylates Acetaminophen Allied health notes reviewed: RT
[2021-05-29] MEDS: fentaNYL 100 MCG/2 ML INJ IV PRN ×2 (11:24→15:16)
[2021-05-29] MEDS ORDERED: DEXTROSE 5% IN WATER 1,000 ML IV SCH (12:00)
[2021-05-29] MEDS: TAMSULOSIN 0.4 MG CAP PO SCH (12:31)
[2021-05-29] MEDS: amLODIPine 10 MG TAB PO SCH (12:34)
--- NOTE | 2021-05-29 14:16 | Progress Note ---
Assessment and Plan 1. Acute kidney injury: Vasomotor SIXTO in the volume depletion / dehydration. CT abdomen negative for hydro. Creatinine level was normal in 2019. Monitor renal function. Creatinine level is improving. Non-oliguric. Renal prognosis is guarded. Avoid nephrotoxic agents. Meds dosage based on GFR. 2. FEN: Hypernatremia, monitor. Sodium level is about the same as yesterday. Resume water flushes 300 ml Q4, spoke with RN. Hold IV D5W for now. Follow Sodium level. Metabolic acidosis, monitor. Lactic acidosis. Monitor lytes. 3. Acute respiratory failure with hypoxia: 2/2 PNA. Intubated, on vent. 4. Pneumonia, POA: Covid test negative. Abx. Follow cultures. 5. Elevated Troponin: Monitor. 6. Hypertension: Monitor BP. Meds as appropriate. 7. Acute metabolic Encephalopathy, POA: Monitor. Prognosis guarded. Subjective: Patient was seen and examined at the bedside. Examination: General appearance: well-developed, thin built, appears stated age, intubated, on vent HEENT: ATNC, pupils equal Neck: supple Respiratory: coarse breath sounds Cardiology: regular, S1S2, no murmur Gastrointestinal: soft, bowel sounds heard, not tender Integumentary: no rash, warm and dry Neurologic: not responding Ext: no edema : Cast catheter Subjective Date of service: 05/29/21 Objective - Vital Signs Vital signs: Vital Signs - 12hr 05/29/21 05/29/21 05/29/21 02:30 03:00 03:23 Temperature 99.3 F Pulse Rate 80 78 Pulse Rate [ From Monitor] Respiratory 24 20 Rate Blood Pressure 135/55 138/54 O2 Sat by Pulse 100 100 Oximetry 05/29/21 05/29/21 05/29/21 03:30 04:00 04:05 Temperature Pulse Rate 81 80 79 Pulse Rate [ 76 From Monitor] Respiratory 21 20 Rate Blood Pressure 138/54 143/61 143/61 O2 Sat by Pulse 100 100 100 Oximetry 05/29/21 05/29/21 05/29/21 04:30 05:00 05:30 Temperature Pulse Rate 76 76 78 Pulse Rate [ From Monitor] Respiratory 19 20 20 Rate Blood Pressure 143/61 138/62 138/62 O2 Sat by Pulse 100 100 100 Oximetry 05/29/21 05/29/21 05/29/21 06:00 06:31 07:00 Temperature Pulse Rate 74 77 75 Pulse Rate [ From Monitor] Respiratory 19 22 23 Rate Blood Pressure 139/64 139/64 150/58 O2 Sat by Pulse 100 100 100 Oximetry 05/29/21 05/29/21 05/29/21 07:31 07:49 07:51 Temperature 99.5 F Pulse Rate 78 87 Pulse Rate [ From Monitor] Respiratory 24 Rate Blood Pressure 150/58 150/58 O2 Sat by Pulse 100 100 Oximetry 05/29/21 05/29/21 05/29/21 08:01 08:10 08:31 Temperature Pulse Rate 89 95 H 92 H Pulse Rate [ From Monitor] Respiratory 24 32 H 27 H Rate Blood Pressure 165/74 157/71 148/74 O2 Sat by Pulse 100 100 100 Oximetry 05/29/21 05/29/21 05/29/21 09:00 09:31 10:00 Temperature Pulse Rate 87 92 H 92 H Pulse Rate [ From Monitor] Respiratory 26 H 32 H 31 H Rate Blood Pressure 157/71 157/71 173/68 O2 Sat by Pulse 100 100 100 Oximetry 05/29/21 05/29/21 05/29/21 10:31 11:00 11:31 Temperature Pulse Rate 96 H 95 H 95 H Pulse Rate [ From Monitor] Respiratory 34 H 32 H 25 H Rate Blood Pressure 173/68 183/74 174/74 O2 Sat by Pulse 99 99 99 Oximetry 05/29/21 05/29/21 05/29/21 12:00 12:31 12:34 Temperature 99.4 F Pulse Rate 92 H 96 H 95 H Pulse Rate [ From Monitor] Respiratory 27 H 32 H Rate Blood Pressure 169/69 169/69 169/69 O2 Sat by Pulse 99 100 Oximetry 05/29/21 05/29/21 13:00 13:31 Temperature Pulse Rate 97 H 103 H Pulse Rate [ From Monitor] Respiratory 32 H 35 H Rate Blood Pressure 174/67 174/67 O2 Sat by Pulse 100 99 Oximetry - Lab 05/27/21 02:00 05/29/21 04:15 Most recent lab results ABG pH 7.481 (7.320-7.450) H 05/29/21 02:59 ABG O2 Saturation 97.0 (0-100) 05/29/21 02:59 Calcium 6.8 mg/dL (8.4-10.2) L 05/29/21 04:15 Phosphorus 3.90 mg/dL (2.5-4.5) D 05/28/21 08:47 Urine Creatinine 51.6 mg/dL (0.1-20.0) H 05/26/21 Unknown Urine Sodium 96 mmol/L 05/26/21 Unknown Medications & Allergies - Medications Allergies/Adverse Reactions: Allergies No Known Allergies Allergy (Unverified 05/26/21 18:11) Home Medications: Home Medications Medication Instructions Recorded Confirmed Last Taken Type No Known Home Medications [No 05/26/21 05/26/21 Unknown History Reported Home Medications] Active Medications: Generic Name Dose Route Start Last Admin Trade Name Freq PRN Reason Stop Dose Admin Acetaminophen 650 mg 05/26/21 18:34 Acetaminophen 650 Mg Rect Supp NV Q6H PRN Pain MILD(1-3)/Fever >100.5/JONES Albuterol 2.5 mg 05/26/21 18:34 Albuterol 2.5 Mg/3 Ml Nebu IH Q3HRT PRN Shortness Of Breath Amlodipine Besylate 10 mg 05/29/21 12:00 05/29/21 12:34 Amlodipine 10 Mg Tab PO 10 mg QDAY ONDINA Administration Lipase/Protease/Amylase 1 each 05/28/21 08:24 Lipase 10,500/Protease 25,000/Amylase 43,750 (Units) Dr Moises BURNETTETJOSE PRN PRN For Clogged Feeding Tube Ascorbic Acid 500 mg 05/26/21 22:00 05/29/21 09:37 Ascorbic Acid 500 Mg Tab PO 500 mg BID ONDINA Administration Cholecalciferol 1,000 unit 05/27/21 10:00 05/29/21 09:37 Cholecalciferol (Vit D3) 1000 Unit (25 Mcg) Tab PO 1,000 unit QDAY ONDINA Administration Famotidine 20 mg 05/28/21 10:00 05/29/21 09:36 Famotidine 20 Mg Tab PO 20 mg DAILY ONDINA Administration Fentanyl 50 mcg 05/26/21 17:02 05/29/21 11:24 Fentanyl 100 Mcg/2 Ml Inj IV 50 mcg Q10MIN PRN Administration ANALGESIA Heparin Sodium (Porcine) 5,000 unit 05/26/21 22:00 05/29/21 09:37 Heparin 5,000 Unit/1 Ml Vial SUB-Q 5,000 unit Q12HR ONDINA Administration Hydrophilic Ointment 1 applic 05/26/21 17:02 Lip Therapy Vaseline TP Q2HR PRN Dry Lips Fentanyl Citrate 2,000 mcg in 100 mls @ 2.268 mls/hr 05/26/21 18:00 05/28/21 12:16 Fentanyl Drip Premix IV 0 mcg/kg/hr TITR ONDINA 0 mls/hr Titration Protocol 1 MCG/KG/HR Cefepime HCl 1 gm in 100 mls @ 200 mls/hr 05/27/21 18:00 05/28/21 18:38 Cefepime/Ns 1 Gm/100 Ml IV 06/02/21 18:29 200 mls/hr Q24H ONDINA Administration Protocol Multi-Ingred Cream/Lotion/Oil/Oint 1 applic 05/26/21 17:02 Mineral Oil/Petrolatum, White Ophth Oint 3.5 Gm OU Q4HR PRN Dry Eye(s) Senna/Docusate Sodium 1 tab 05/26/21 22:00 05/29/21 09:38 Sennosides/Docusate Sodium 8.6/50 Mg Tab FEEDTUBE 1 tab BID ONDINA Administration Simple Syrup 15 ml 05/28/21 08:24 Simple Syrup 15 Ml FEEDTUBE PRN PRN Hypoglycemia Simple Syrup 30 ml 05/28/21 08:24 Simple Syrup 15 Ml FEEDTUBE PRN PRN Hypoglycemia Sodium Bicarbonate 325 mg 05/28/21 08:24 Sodium Bicarbonate 325 Mg Tab FEEDTUBE PRN PRN For Clogged Feeding Tube Sodium Chloride 10 ml 05/26/21 22:00 05/29/21 09:39 Sodium Chloride 0.9% 10 Ml Flush Syringe IV 10 ml BID ONDINA Administration Sodium Chloride 10 ml 05/26/21 18:34 Sodium Chloride 0.9% 10 Ml Flush Syringe IV PRN PRN LINE FLUSH Tamsulosin HCl 0.8 mg 05/29/21 12:00 05/29/21 12:31 Tamsulosin 0.4 Mg Cap PO 0.8 mg QDAY ONDINA Administration Zinc Sulfate 220 mg 05/26/21 22:00 05/29/21 09:38 Zinc Sulfate 220 Mg Cap PO 220 mg BID ONDINA Administration
[2021-05-29] MEDS ORDERED: CALCIUM GLUCONATE 2,000 MG in SODIUM CHLORIDE 0.9% 100 ML IV ONE (15:00)
[2021-05-29 16:09] LABS: Calcium 7.1 mg/dL (8.4-10.2)
[2021-05-29] MEDS: CEFEPIME/NS 1 GM/100 ML 1 GM/100 ML BAG IV SCH (17:29)
[2021-05-30] MEDS: fentaNYL 100 MCG/2 ML INJ IV PRN (01:30)
--- NOTE | 2021-05-30 04:25 | XRay Report ---
XR chest 1V ap INDICATION / CLINICAL INFORMATION: follow up respiratory failure. COMPARISON: Radiograph from yesterday. FINDINGS: SUPPORT DEVICES: Unchanged. HEART /PULMONARY VASCULATURE: No significant abnormality. LUNGS / PLEURA: Mild pulmonary airspace opacities are unchanged. No new or increasing airspace consol idation. No pleural effusion or pneumothorax. IMPRESSION: 1. No significant interval change. Signer Name: Curtis Amezcua MD Signed: 05/30/2021 4:20 AM Workstation Name: [id number]
[2021-05-30 06:29] LABS: Calcium 7.4 mg/dL (8.4-10.2)
[2021-05-30] MEDS: ACETAMINOPHEN 325 MG/10.15 ML ORAL LIQD UNIT DOSE FEEDTUBE PRN (09:33)
[2021-05-30] MEDS: FAMOTIDINE 20 MG TAB PO SCH (09:33)
[2021-05-30] MEDS: HEPARIN 5,000 UNIT/1 ML VIAL SUB-Q SCH ×2 (09:34→22:52)
[2021-05-30] MEDS: amLODIPine 10 MG TAB PO SCH (09:35)
[2021-05-30] MEDS: CHOLECALCIFEROL (VIT D3) 1000 UNIT (25 mcg) TAB PO SCH (09:36)
[2021-05-30] MEDS: SENNOSIDES/DOCUSATE SODIUM 8.6/50 MG TAB FEEDTUBE SCH ×2 (09:36→22:52)
[2021-05-30] MEDS: ZINC SULFATE 220 MG CAP PO SCH ×2 (09:37→22:53)
[2021-05-30] MEDS: ASCORBIC ACID 500 MG TAB PO SCH ×2 (09:37→22:53)
[2021-05-30] MEDS: TAMSULOSIN 0.4 MG CAP PO SCH (09:37)
--- NOTE | 2021-05-30 10:19 | Progress Note ---
Assessment and Plan Assessment and plan: Acute hypoxemic respiratory failure Sepsis Bilateral pneumonia. COVID-19 testing negative. Acute kidney injury/ATN Severe hypernatremia UTI 05/27/2021. Patient with severe hypernatremia secondary to dehydration/vasomotor nephropathy. Continue IV fluid hydration per nephrology recommendations. Malachi webber with a creatinine September 2019 of 0.7. On this admission patient was noted to have a creatinine of 5.4. Slightly improved today to 4.2. Etiology secondary to vasomotor nephropathy/acute kidney injury/volume depletion/dehydration. Follow-up urine studies. CT scan of the abdomen pelvis did not reveal any obstruction. CT chest revealed bilateral pulmonary opacities. Patient with elevated D-dimer that may be secondary to Covid coagulopathy. Consider VQ scan. Unable to perform CTA given renal insufficiency. Await pulmonary consultation 05/28/2021. Hyponatremia has improved to 159. Continue IV fluid hydration per nephrology recommendations. Creatinine has also improved to 2.9. No obstruction per CT scan. COVID-19 testing negative on 05/27/2021. Continue IV antibiotics for bilateral pneumonia and UTI. Follow-up blood and urine cultures. Consider ID consultation patient remains on mechanical ventilation but undergoing PSV trials. Patient currently with PSV with FiO2 of 30% PEEP of 6 and pressure support of 10. Continue vent weaning per pulmonary. 05/29/2021. Hypernatremia persists with sodium improving to 154 yesterday evening but now back to 159. Creatinine has improved to 2.4. Nephrology following.Continue current antibiotics for pneumonia and UTI. Consider CTA of chest for elevated D-dimer when creatinine back to baseline. Patient currently on AC mode ventilation rate of 16, tidal volume 450, FiO2 30% and PEEP of 6. 05/30/2021. Sodium remains elevated at 162 and creatinine elevated at 2.1. Continue free water with 300 mL every 4 hours. Nephrology held IV D5W. Resume IV fluids per nephrology recommendations. CT scan of the abdomen negative for hydronephrosis. Continue IV antibiotics. Patient remains on mechanical ventilation AC mode rate of 20, tidal volume 450, FiO2 40% and a PEEP of 6. The high probability of a clinically significant, sudden or life threatening deterioration of the [respiratory, renal and electrolyte] system(s) required my full and direct attention, intervention and personal management. The aggregate critical care time was [33] minutes. This time is in addition to time spent performing reported procedures but includes the following: [x] Data Review and interpretation [x] Patient assessment and monitoring of vital signs [x] Documentation [x] Medication orders and management History Interval history: No new issues overnight Hospitalist Physical - Constitutional Vitals: Temp Pulse Resp BP Pulse Ox 101.0 F H 102 H 23 122/72 100 05/30/21 07:49 05/30/21 08:00 05/30/21 07:30 05/30/21 09:35 05/30/21 08:00 General appearance: Present: severe distress - EENT Eyes: Present: PERRL, EOM intact ENT: hearing intact, clear oral mucosa, dentition normal - Neck Neck: Present: supple, normal ROM - Respiratory Respiratory effort: normal Respiratory: bilateral: CTA - Cardiovascular Rhythm: regular Heart Sounds: Present: S1 & S2. Absent: gallop, rub - Extremities Extremities: no ischemia, No edema, Full ROM - Abdominal General gastrointestinal: soft, non-tender, non-distended, normal bowel sounds - Integumentary Integumentary: Present: clear, warm, dry - Neurologic Neurologic: CNII-XII intact, moves all extremities HEART Score - HEART Score Troponin: Troponin T 0.038 ng/mL (0.00-0.029) H 05/26/21 17:08 Results - Labs CBC & Chem 7: 05/27/21 02:00 05/30/21 04:33 Labs: Laboratory Last Values WBC 27.1 K/mm3 (4.5-11.0) H 05/27/21 02:00 RBC 4.10 M/mm3 (3.65-5.03) 05/27/21 02:00 Hgb 11.1 gm/dl (11.8-15.2) L 05/27/21 02:00 Hct 35.6 % (35.5-45.6) 05/27/21 02:00 MCV 87 fl (84-94) 05/27/21 02:00 MCH 27 pg (28-32) L 05/27/21 02:00 MCHC 31 % (32-34) L 05/27/21 02:00 RDW 16.1 % (13.2-15.2) H 05/27/21 02:00 Plt Count 62 K/mm3 (140-440) L 05/27/21 02:00 Lymph % (Auto) 30.3 % (13.4-35.0) 05/26/21 17:08 [place] % (Auto) 6.1 % (0.0-7.3) 05/26/21 17:08 Eos % (Auto) 1.0 % (0.0-4.3) 05/26/21 17:08 Baso % (Auto) 0.5 % (0.0-1.8) 05/26/21 17:08 Lymph # (Auto) 3.0 K/mm3 (1.2-5.4) 05/26/21 17:08 [place] # (Auto) 0.6 K/mm3 (0.0-0.8) 05/26/21 17:08 Eos # (Auto) 0.1 K/mm3 (0.0-0.4) 05/26/21 17:08 Baso # (Auto) 0.1 K/mm3 (0.0-0.1) 05/26/21 17:08 Add Manual Diff Complete 05/27/21 02:00 Total Counted 100 05/27/21 02:00 Seg Neutrophils % Underbaster 05/27/21 02:00 Seg Neuts % (Manual) 93.0 % (40.0-70.0) H 05/27/21 02:00 Lymphocytes % (Manual) 3.0 % (13.4-35.0) L 05/27/21 02:00 Monocytes % (Manual) 4.0 % (0.0-7.3) 05/27/21 02:00 Nucleated RBC % Not Reportable 05/27/21 02:00 Seg Neutrophils # 6.1 K/mm3 (1.8-7.7) 05/26/21 17:08 Seg Neutrophils # Man 25.2 K/mm3 (1.8-7.7) H 05/27/21 02:00 Band Neutrophils # 0.0 K/mm3 05/27/21 02:00 Lymphocytes # (Manual) 0.8 K/mm3 (1.2-5.4) L 05/27/21 02:00 Abs React Lymphs (Man) 0.0 K/mm3 05/27/21 02:00 Monocytes # (Manual) 1.1 K/mm3 (0.0-0.8) H 05/27/21 02:00 Eosinophils # (Manual) 0.0 K/mm3 (0.0-0.4) 05/27/21 02:00 Basophils # (Manual) 0.0 K/mm3 (0.0-0.1) 05/27/21 02:00 Metamyelocytes # 0.0 K/mm3 05/27/21 02:00 Myelocytes # 0.0 K/mm3 05/27/21 02:00 Promyelocytes # 0.0 K/mm3 05/27/21 02:00 Blast Cells # 0.0 K/mm3 05/27/21 02:00 WBC Morphology Not Reportable 05/27/21 02:00 Hypersegmented Neuts Not Reportable 05/27/21 02:00 Hyposegmented Neuts Not Reportable 05/27/21 02:00 Hypogranular Neuts Not Reportable 05/27/21 02:00 Smudge Cells Not Reportable 05/27/21 02:00 Toxic Granulation Not Reportable 05/27/21 02:00 Toxic Vacuolation Not Reportable 05/27/21 02:00 Dohle Bodies Not Reportable 05/27/21 02:00 Pelger-Huet Anomaly Not Reportable 05/27/21 02:00 Daniel Rods Not Reportable 05/27/21 02:00 Platelet Estimate Not Reportable 05/27/21 02:00 Clumped Platelets Not Reportable 05/27/21 02:00 Plt Clumps, EDTA Not Reportable 05/27/21 02:00 Large Platelets Not Reportable 05/27/21 02:00 Giant Platelets Not Reportable 05/27/21 02:00 Platelet Satelliting Not Reportable 05/27/21 02:00 Plt Morphology Comment Not Reportable 05/27/21 02:00 RBC Morphology Normal 05/27/21 02:00 Dimorphic RBCs Not Reportable 05/27/21 02:00 Polychromasia Not Reportable 05/27/21 02:00 Hypochromasia Not Reportable 05/27/21 02:00 Poikilocytosis Not Reportable 05/27/21 02:00 Anisocytosis Not Reportable 05/27/21 02:00 Microcytosis Not Reportable 05/27/21 02:00 Macrocytosis Not Reportable 05/27/21 02:00 Spherocytes Not Reportable 05/27/21 02:00 Pappenheimer Bodies Not Reportable 05/27/21 02:00 Sickle Cells Not Reportable 05/27/21 02:00 Target Cells Not Reportable 05/27/21 02:00 Tear Drop Cells Not Reportable 05/27/21 02:00 Ovalocytes Not Reportable 05/27/21 02:00 Helmet Cells Not Reportable 05/27/21 02:00 Huertas-Whitingham Bodies Not Reportable 05/27/21 02:00 Bixby Rings Not Reportable 05/27/21 02:00 [place] Cells Not Reportable 05/27/21 02:00 Bite Cells Not Reportable 05/27/21 02:00 Crenated Cell Not Reportable 05/27/21 02:00 Elliptocytes Not Reportable 05/27/21 02:00 Acanthocytes (Spur) Not Reportable 05/27/21 02:00 Rouleaux Not Reportable 05/27/21 02:00 Hemoglobin C Crystals Not Reportable 05/27/21 02:00 Schistocytes Not Reportable 05/27/21 02:00 Malaria parasites Not Reportable 05/27/21 02:00 Arik Bodies Not Reportable 05/27/21 02:00 Hem Pathologist Commnt No 05/27/21 02:00 APTT 42.4 Sec. (24.2-36.6) H 05/26/21 17:08 D-Dimer 8255.81 ng/mlDDU (0-234) H 05/26/21 17:08 ABG pH 7.484 (7.320-7.450) H 05/30/21 01:20 POC ABG pCO2 24.6 mmHg (32.0-48.0) L 05/30/21 01:20 POC ABG pO2 131.2 mmHg (83-108) H 05/30/21 01:20 POC ABG HCO3 18.1 05/30/21 01:20 ABG O2 Saturation 98.5 (0-100) 05/30/21 01:20 POC ABG Base Excess -3.9 05/30/21 01:20 ABG Hemoglobin 11.7 (12.0-17.5) L 05/30/21 01:20 ABG Oxyhemoglobin 98.1 (94-98) H 05/30/21 01:20 ABG Methemoglobin 0.3 (0.0-1.5) 05/30/21 01:20 ABG Sodium 155.7 mmol/L (136.0-145.0) H 05/30/21 01:20 ABG Potassium 3.6 mmol/L (3.40-4.50) 05/30/21 01:20 ABG Chloride 126.0 mmol/L (98-107) H 05/30/21 01:20 ABG Glucose 191 mg/dL (65-95) H 05/30/21 01:20 Carboxyhemoglobin 0.1 (0.5-1.5) L 05/30/21 01:20 FiO2 % 50.0 05/30/21 01:20 Sodium 162 mmol/L (137-145) H* 05/30/21 04:33 Potassium 3.8 mmol/L (3.6-5.0) 05/30/21 04:33 Chloride 129.0 mmol/L (98-107) H 05/30/21 04:33 Carbon Dioxide 19 mmol/L (22-30) L 05/30/21 04:33 Anion Gap 18 mmol/L 05/30/21 04:33 BUN 89 mg/dL (9-20) H 05/30/21 04:33 Creatinine 2.1 mg/dL (0.8-1.3) H 05/30/21 04:33 Estimated GFR 31 ml/min 05/30/21 04:33 BUN/Creatinine Ratio 42 % 05/30/21 04:33 Glucose 190 mg/dL (75-100) H 05/30/21 04:33 POC Glucose 169 mg/dL (70-105) H 05/30/21 05:21 Lactic Acid 1.60 mmol/L (0.7-2.0) 05/27/21 12:08 Calcium 7.4 mg/dL (8.4-10.2) L 05/30/21 04:33 Phosphorus 3.90 mg/dL (2.5-4.5) D 05/28/21 08:47 Magnesium 1.90 mg/dL (1.7-2.3) 05/30/21 04:33 Ferritin 598.3 ng/mL (30.0-300.0) H 05/26/21 17:08 Total Bilirubin 0.50 mg/dL (0.1-1.2) 05/27/21 02:00 AST 66 units/L (5-40) H 05/27/21 02:00 ALT 64 units/L (7-56) H 05/27/21 02:00 Alkaline Phosphatase 126 units/L (35-129) 05/27/21 02:00 Ammonia 46.0 umol/L (25-60) 05/26/21 17:08 Lactate Dehydrogenase 550 units/L (91-180) H 05/26/21 17:08 Troponin T 0.038 ng/mL (0.00-0.029) H 05/26/21 17:08 C-Reactive Protein 4.20 mg/dL (0.00-1.30) H 05/26/21 17:08 Total Protein 6.6 g/dL (6.3-8.2) 05/27/21 02:00 Albumin 2.9 g/dL (3.9-5) L 05/27/21 02:00 Albumin/Globulin Ratio 0.8 % 05/27/21 02:00 Triglycerides 150 mg/dL (2-149) H 05/26/21 17:08 Cholesterol 145 mg/dL (50-199) 05/26/21 17:08 LDL Cholesterol Direct 84 mg/dL (50-130) 05/26/21 17:08 HDL Cholesterol 24 mg/dL (40-59) L 05/26/21 17:08 Cholesterol/HDL Ratio 6.04 % 05/26/21 17:08 Procalcitonin 0.29 ng/mL (<0.15) 05/26/21 17:08 TSH 0.342 mlU/mL (0.270-4.200) 05/26/21 17:08 Arterial Blood Glucose 191 mg/dL (65-95) H 05/30/21 01:20 Arterial Blood Ionized Calcium 4.1 mg/dL (4.6-5.3) L 05/30/21 01:20 Urine Color Yellow (Yellow) 05/26/21 Unknown Urine Turbidity Clear (Clear) 05/26/21 Unknown Urine pH 5.0 (5.0-7.0) 05/26/21 Unknown Ur Specific [place] 1.011 (1.003-1.030) 05/26/21 Unknown Urine Protein <15 mg/dl mg/dL (Negative) 05/26/21 Unknown Urine Glucose (UA) Neg mg/dL (Negative) 05/26/21 Unknown Urine Ketones Neg mg/dL (Negative) 05/26/21 Unknown Urine Blood Sm (Negative) 05/26/21 Unknown Urine Nitrite Neg (Negative) 05/26/21 Unknown Urine Bilirubin Neg (Negative) 05/26/21 Unknown Urine Urobilinogen < 2.0 mg/dL (<2.0) 05/26/21 Unknown Ur Leukocyte Esterase Neg (Negative) 05/26/21 Unknown Urine WBC (Auto) 16.0 /HPF (0.0-6.0) H 05/26/21 Unknown Urine RBC (Auto) 2.0 /HPF (0.0-6.0) 05/26/21 Unknown Urine Bacteria (Auto) 1+ /HPF (Negative) 05/26/21 Unknown Urine Osmolality 392 Mosm/kg 05/26/21 Unknown Urine Creatinine 51.6 mg/dL (0.1-20.0) H 05/26/21 Unknown Urine Sodium 96 mmol/L 05/26/21 Unknown Random Vancomycin 14.8 ug/mL (0-40.0) 05/30/21 08:29 Salicylates < 0.3 mg/dL (2.8-20.0) L 05/26/21 17:08 Acetaminophen < 5.0 ug/mL (10.0-30.0) L 05/26/21 17:08 Coronavirus (PCR) Negative (Negative) 05/27/21 Unknown Blood Type O POSITIVE 05/26/21 17:00 Antibody Screen Negative 05/26/21 17:00 Microbiology: Microbiology 05/26/21 17:05 Peripheral/Venous Blood Culture - Preliminary NO GROWTH AFTER 72 HOURS 05/26/21 17:08 Peripheral/Venous Blood Culture - Preliminary 05/26/21 17:37 Sputum - Endotracheal Wash Sputum Culture - Final Escherichia Coli Staphylococcus Aureus 05/26/21 20:18 Urine,Catheterized - Straight Catheter Urine Culture - Final NO GROWTH AFTER 48 HOURS Cast/IV: Voiding Method Indwelling Catheter Active Medications - Current Medications Current Medications: Generic Name Dose Route Start Last Admin Trade Name Freq PRN Reason Stop Dose Admin Acetaminophen 650 mg 05/30/21 08:30 05/30/21 09:33 Acetaminophen 325 Mg/10.15 Ml Oral Liqd Unit Dose FEEDTUBE 650 mg Q6H PRN Administration Pain 1 -3, fever >100.5 Albuterol 2.5 mg 05/26/21 18:34 Albuterol 2.5 Mg/3 Ml Nebu IH Q3HRT PRN Shortness Of Breath Amlodipine Besylate 10 mg 05/29/21 12:00 05/30/21 09:35 Amlodipine 10 Mg Tab PO 10 mg QDAY ONDINA Administration Lipase/Protease/Amylase 1 each 05/28/21 08:24 Lipase 10,500/Protease 25,000/Amylase 43,750 (Units) Dr Cap FEEDTUBE PRN PRN For Clogged Feeding Tube Ascorbic Acid 500 mg 05/26/21 22:00 05/30/21 09:37 Ascorbic Acid 500 Mg Tab PO 500 mg BID ONDINA Administration Cholecalciferol 1,000 unit 05/27/21 10:00 05/30/21 09:36 Cholecalciferol (Vit D3) 1000 Unit (25 Mcg) Tab PO 1,000 unit QDAY ONDINA Administration Famotidine 20 mg 05/28/21 10:00 05/30/21 09:33 Famotidine 20 Mg Tab PO 20 mg DAILY ONDINA Administration Heparin Sodium (Porcine) 5,000 unit 05/26/21 22:00 05/30/21 09:34 Heparin 5,000 Unit/1 Ml Vial SUB-Q 5,000 unit Q12HR ONDINA Administration Hydrophilic Ointment 1 applic 05/26/21 17:02 Lip Therapy Vaseline TP Q2HR PRN Dry Lips Fentanyl Citrate 2,000 mcg in 100 mls @ 2.268 mls/hr 05/26/21 18:00 05/28/21 12:16 Fentanyl Drip Premix IV 0 mcg/kg/hr TITR ONDINA 0 mls/hr Titration Protocol 1 MCG/KG/HR Cefepime HCl 1 gm in 100 mls @ 200 mls/hr 05/27/21 18:00 05/29/21 17:29 Cefepime/Ns 1 Gm/100 Ml IV 06/02/21 18:29 200 mls/hr Q24H ONDINA Administration Protocol Propofol 1,000 mg in 100 mls @ 1.361 mls/hr 05/30/21 06:00 05/30/21 05:57 Diprivan 10 Mg/Ml IV 5 mcg/kg/min TITR ONDINA 1.361 mls/hr Administration Protocol 5 MCG/KG/MIN Multi-Ingred Cream/Lotion/Oil/Oint 1 applic 05/26/21 17:02 Mineral Oil/Petrolatum, White Ophth Oint 3.5 Gm OU Q4HR PRN Dry Eye(s) Senna/Docusate Sodium 1 tab 05/26/21 22:00 05/30/21 09:36 Sennosides/Docusate Sodium 8.6/50 Mg Tab FEEDTUBE 1 tab BID ONDINA Administration Simple Syrup 15 ml 05/28/21 08:24 Simple Syrup 15 Ml FEEDTUBE PRN PRN Hypoglycemia Simple Syrup 30 ml 05/28/21 08:24 Simple Syrup 15 Ml FEEDTUBE PRN PRN Hypoglycemia Sodium Bicarbonate 325 mg 05/28/21 08:24 Sodium Bicarbonate 325 Mg Tab FEEDTUBE PRN PRN For Clogged Feeding Tube Sodium Chloride 10 ml 05/26/21 22:00 05/30/21 09:38 Sodium Chloride 0.9% 10 Ml Flush Syringe IV 10 ml BID ONDINA Administration Sodium Chloride 10 ml 05/26/21 18:34 Sodium Chloride 0.9% 10 Ml Flush Syringe IV PRN PRN LINE FLUSH Tamsulosin HCl 0.8 mg 05/29/21 12:00 05/30/21 09:37 Tamsulosin 0.4 Mg Cap PO 0.8 mg QDAY ONDINA Administration Zinc Sulfate 220 mg 05/26/21 22:00 05/30/21 09:37 Zinc Sulfate 220 Mg Cap PO 220 mg BID ONDINA Administration Nutrition/Malnutrition Assess - Dietary Evaluation Nutrition/Malnutrition Findings: Nutrition Notes Start: 05/27/21 08:35 Freq: Status: Active Protocol: Document 05/28/21 08:22 (Rec: 05/28/21 08:24 [email or web address]) Nutrition Notes Need for Assessment generated from: MD Order Initial or Follow up Reassessment Current Diagnosis Acute Kidney Injury,Sepsis, Hypertension,Respiratory Failure Other Pertinent Diagnosis UTI, encephalopathy, dehydration, COVID PUI Current Diet NPO Labs/Tests No new labs Pertinent Medications D5w at 75 ml/hr Height 5 ft 2 in Weight 45.359 kg [place] Body Weight (kg) 53.63 BMI 18.3 Weight Status Underweight Subjective/Other Information MD order for TF. Pt remains on vent. Burn Absent Trauma Absent Current % PO Negligible Minimum of two criteria No physical signs of malnutrition #1 Nutrition Diagnosis Inadequate oral intake Diagnosis Progress(for reassessment Continues documentation) Is patient on ventilator? Yes Is Patient Ambulatory and/or Out of Bed No REE-([facility]-confined to bed) 1258.548 Calculation Used for Recommendations [facility] Additional Notes Protein: (1.2-2g/kg) 54-91g Fluid: 1 ml/kcal or per MD Nutrition Intervention Change Diet Order: Start TF Nutrition Support: [place] 1.8 at 30 ml/hr Flush 200 ml q4h for hypernatermia, once resolved, flush 100 ml q4h or per MD Kcal 1,296 Protein (gm) 58 Fluid (mL) 523 Goal #1 Meet at least 75% of protein and energy needs via TF Anticipated Discharge Needs: Unable to determine at this time Follow-Up By: 05/31/21 Additional Comments FU for TF start and tolerance
--- NOTE | 2021-05-30 10:42 | Progress Note ---
Assessment and Plan 1. Acute kidney injury: Vasomotor SIXTO in the volume depletion / dehydration. CT abdomen negative for hydro. Creatinine level was normal in 2019. Monitor renal function. Slight increase in the Creatinine level since yesterday. Non-oliguric. Renal prognosis is guarded. Avoid nephrotoxic agents. Meds dosage based on GFR. 2. FEN: Hypernatremia, monitor. Sodium level has been increasing since yesterday. Started on IV D5W. Continue water flushes 300 ml Q4, spoke with RN. Ur Osm 392. Follow Sodium level. Metabolic acidosis, monitor. Lactic acidosis. Monitor lytes. 3. Acute respiratory failure with hypoxia: 2/2 PNA. Intubated, on vent. 4. Pneumonia, POA: Covid test negative. Abx. Follow cultures. 5. Elevated Troponin: Monitor. 6. Hypertension: Monitor BP. Meds as appropriate. 7. Acute metabolic Encephalopathy, POA: Monitor. Prognosis guarded. Subjective: Patient was seen and examined at the bedside. Examination: General appearance: well-developed, thin built, appears stated age, intubated, on vent HEENT: ATNC, pupils equal Neck: supple Respiratory: coarse breath sounds Cardiology: regular, S1S2, no murmur Gastrointestinal: soft, bowel sounds heard, not tender Integumentary: no rash, warm and dry Neurologic: not responding Ext: no edema : Cast catheter Subjective Date of service: 05/30/21 Objective - Vital Signs Vital signs: Vital Signs - 12hr 05/29/21 05/29/21 05/29/21 23:01 23:31 23:39 Temperature 101.6 F H Pulse Rate 119 H 123 H Pulse Rate [ From Monitor] Respiratory 29 H 34 H Rate Blood Pressure 127/78 127/78 O2 Sat by Pulse 100 100 Oximetry 05/29/21 05/30/21 05/30/21 23:54 00:00 00:01 Temperature Pulse Rate 120 H 72 126 H Pulse Rate [ 128 H From Monitor] Respiratory 36 H 36 H Rate Blood Pressure 127/78 160/84 O2 Sat by Pulse 100 100 Oximetry 05/30/21 05/30/21 05/30/21 00:31 01:01 01:31 Temperature Pulse Rate 136 H 136 H 130 H Pulse Rate [ From Monitor] Respiratory 39 H 36 H 34 H Rate Blood Pressure 160/84 169/83 169/83 O2 Sat by Pulse 100 99 Oximetry 05/30/21 05/30/21 05/30/21 02:01 02:31 03:01 Temperature Pulse Rate 132 H 131 H 130 H Pulse Rate [ From Monitor] Respiratory 35 H 36 H 37 H Rate Blood Pressure 142/67 142/67 134/50 O2 Sat by Pulse 100 99 100 Oximetry 05/30/21 05/30/21 05/30/21 03:31 04:00 04:01 Temperature 102.8 F H Pulse Rate 127 H 125 H 125 H Pulse Rate [ 125 H From Monitor] Respiratory 38 H 36 H 36 H Rate Blood Pressure 134/50 135/74 O2 Sat by Pulse 100 100 Oximetry 05/30/21 05/30/21 05/30/21 04:15 04:31 05:00 Temperature Pulse Rate 124 H 124 H 122 H Pulse Rate [ From Monitor] Respiratory 37 H 38 H Rate Blood Pressure 135/74 135/74 130/70 O2 Sat by Pulse 100 100 100 Oximetry 05/30/21 05/30/21 05/30/21 05:31 06:00 06:30 Temperature Pulse Rate 120 H 120 H 113 H Pulse Rate [ From Monitor] Respiratory 37 H 38 H 26 H Rate Blood Pressure 130/70 118/76 104/71 O2 Sat by Pulse 100 99 100 Oximetry 05/30/21 05/30/21 05/30/21 07:00 07:30 07:49 Temperature 101.0 F H Pulse Rate 108 H 105 H Pulse Rate [ From Monitor] Respiratory 24 23 Rate Blood Pressure 125/70 128/68 O2 Sat by Pulse 99 99 Oximetry 05/30/21 05/30/21 08:00 09:35 Temperature Pulse Rate 102 H Pulse Rate [ From Monitor] Respiratory Rate Blood Pressure 116/75 122/72 O2 Sat by Pulse 100 Oximetry - Lab 05/27/21 02:00 05/30/21 04:33 Most recent lab results ABG pH 7.484 (7.320-7.450) H 05/30/21 01:20 ABG O2 Saturation 98.5 (0-100) 05/30/21 01:20 Calcium 7.4 mg/dL (8.4-10.2) L 05/30/21 04:33 Phosphorus 3.90 mg/dL (2.5-4.5) D 05/28/21 08:47 Magnesium 1.90 mg/dL (1.7-2.3) 05/30/21 04:33 Urine Creatinine 51.6 mg/dL (0.1-20.0) H 05/26/21 Unknown Urine Sodium 96 mmol/L 05/26/21 Unknown Medications & Allergies - Medications Allergies/Adverse Reactions: Allergies No Known Allergies Allergy (Verified 05/29/21 18:46) Home Medications: Home Medications Medication Instructions Recorded Confirmed Last Taken Type No Known Home Medications [No 05/26/21 05/26/21 Unknown History Reported Home Medications] Active Medications: Generic Name Dose Route Start Last Admin Trade Name Freq PRN Reason Stop Dose Admin Acetaminophen 650 mg 05/30/21 08:30 05/30/21 09:33 Acetaminophen 325 Mg/10.15 Ml Oral Liqd Unit Dose FEEDTUBE 650 mg Q6H PRN Administration Pain 1 -3, fever >100.5 Albuterol 2.5 mg 05/26/21 18:34 Albuterol 2.5 Mg/3 Ml Nebu IH Q3HRT PRN Shortness Of Breath Amlodipine Besylate 10 mg 05/29/21 12:00 05/30/21 09:35 Amlodipine 10 Mg Tab PO 10 mg QDAY ONDINA Administration Lipase/Protease/Amylase 1 each 05/28/21 08:24 Lipase 10,500/Protease 25,000/Amylase 43,750 (Units) Dr [place] FEEDTUBE PRN PRN For Clogged Feeding Tube Ascorbic Acid 500 mg 05/26/21 22:00 05/30/21 09:37 Ascorbic Acid 500 Mg Tab PO 500 mg BID ONDINA Administration Cholecalciferol 1,000 unit 05/27/21 10:00 05/30/21 09:36 Cholecalciferol (Vit D3) 1000 Unit (25 Mcg) Tab PO 1,000 unit QDAY ONDINA Administration Famotidine 20 mg 05/28/21 10:00 05/30/21 09:33 Famotidine 20 Mg Tab PO 20 mg DAILY ONDINA Administration Heparin Sodium (Porcine) 5,000 unit 05/26/21 22:00 05/30/21 09:34 Heparin 5,000 Unit/1 Ml Vial SUB-Q 5,000 unit Q12HR ONDINA Administration Hydrophilic Ointment 1 applic 05/26/21 17:02 Lip Therapy Vaseline TP Q2HR PRN Dry Lips Fentanyl Citrate 2,000 mcg in 100 mls @ 2.268 mls/hr 05/26/21 18:00 05/28/21 12:16 Fentanyl Drip Premix IV 0 mcg/kg/hr TITR ONDINA 0 mls/hr Titration Protocol 1 MCG/KG/HR Cefepime HCl 1 gm in 100 mls @ 200 mls/hr 05/27/21 18:00 05/29/21 17:29 Cefepime/Ns 1 Gm/100 Ml IV 06/02/21 18:29 200 mls/hr Q24H ONDINA Administration Protocol Propofol 1,000 mg in 100 mls @ 1.361 mls/hr 05/30/21 06:00 05/30/21 05:57 Diprivan 10 Mg/Ml IV 5 mcg/kg/min TITR ONDINA 1.361 mls/hr Administration Protocol 5 MCG/KG/MIN Multi-Ingred Cream/Lotion/Oil/Oint 1 applic 05/26/21 17:02 Mineral Oil/Petrolatum, White Ophth Oint 3.5 Gm OU Q4HR PRN Dry Eye(s) Senna/Docusate Sodium 1 tab 05/26/21 22:00 05/30/21 09:36 Sennosides/Docusate Sodium 8.6/50 Mg Tab FEEDTUBE 1 tab BID ONDINA Administration Simple Syrup 15 ml 05/28/21 08:24 Simple Syrup 15 Ml FEEDTUBE PRN PRN Hypoglycemia Simple Syrup 30 ml 05/28/21 08:24 Simple Syrup 15 Ml FEEDTUBE PRN PRN Hypoglycemia Sodium Bicarbonate 325 mg 05/28/21 08:24 Sodium Bicarbonate 325 Mg Tab FEEDTUBE PRN PRN For Clogged Feeding Tube Sodium Chloride 10 ml 05/26/21 22:00 05/30/21 09:38 Sodium Chloride 0.9% 10 Ml Flush Syringe IV 10 ml BID ONDINA Administration Sodium Chloride 10 ml 05/26/21 18:34 Sodium Chloride 0.9% 10 Ml Flush Syringe IV PRN PRN LINE FLUSH Tamsulosin HCl 0.8 mg 05/29/21 12:00 05/30/21 09:37 Tamsulosin 0.4 Mg Cap PO 0.8 mg QDAY ONDINA Administration Zinc Sulfate 220 mg 05/26/21 22:00 05/30/21 09:37 Zinc Sulfate 220 Mg Cap PO 220 mg BID ONDINA Administration
--- NOTE | 2021-05-30 11:16 | Progress Note ---
Assessment and Plan Acute hypoxemic resp failure on MVS Acute metabolic encephalopathy Sepsis Acute kidney injury (SIXTO) with acute tubular necrosis (ATN) Hypernatremia Pneumonia UTI (urinary tract infection) Protein calorie malnutrition Thrombocytopenia -Titrate supplemental oxygen to keep SpO2 89-92% -VAP bundle addressed, aspiration precautions HOB >30 -Lung protective strategies - Daily SAT and SBT daily -Nutritional support- continue enteric nutritional support at goal -[id number] and free water flusehs for hypernatremia. Goal to correct sodium by 8-10mEq every 24 hours. -Glycemic control. Accucheck, target blood glucose <180mg/dL, avoid hypoglycemia -VTE prophylaxis- Heparin -Stress ulcer prophylaxis-Famotidine -Mobility, off loading with frequent turning per facility protocol for pressure ulcer prevention (he is a high risk patient) -Avoid delirium, maintain sleep-wake cycle, avoid benzodiazepines -Supportive transfusions as clinically indicated to keep HgB >7g/dL -Chronic home medications as clinically indicated -Bladder scan q shift, continue Flomax Place white cathetr for ongoing urinary retention reqquiring frequent straight cathetrizations of the baldded -Complete antibiotics- Cefepime 5/7 and Vancomycin 5/7 -Avoid nephrotoxins, adjust medications for CrCl/GFR CONDITION: CRITICAL PROGNOSIS: GUARDED CODE STATUS: FULL CODE The high probability of a clinically significant, sudden or life threatening deterioration of the [pulmonary,cardiovascular, renal, neurology] system(s) required my full and direct attention, intervention and personal management. The aggregate critical care time was [33] minutes. This time is in addition to time spent performing reported procedures but includes the following: [x] Data Review and interpretation [x] Patient assessment and monitoring of vital signs [x] Documentation [x] Medication orders and management Subjective Date of service: 05/30/21 Interval history: Follow up fro acute hypoxemic resp failure on MVS; severe hypernatremia;acute encephalopathy: SIXTO Seen and examined. Vitals, labs, medications, chart and imaging reviewed. Discussed with nursing and respiratory staff, mental status changes persist. No diarrhea, no vomiting. Remains orally intubated. No fevers, was agitated overnight and required resumption of Propofol Free water flushes was discontinued with some worsening of his hypernatremia. D5 water was started Objective Vital Signs - 12hr 05/29/21 05/29/21 05/29/21 23:31 23:39 23:54 Temperature 101.6 F H Pulse Rate 123 H 120 H Pulse Rate [ From Monitor] Respiratory 34 H Rate Blood Pressure 127/78 127/78 O2 Sat by Pulse 100 100 Oximetry 05/30/21 05/30/21 05/30/21 00:00 00:01 00:31 Temperature Pulse Rate 72 126 H 136 H Pulse Rate [ 128 H From Monitor] Respiratory 36 H 36 H 39 H Rate Blood Pressure 160/84 160/84 O2 Sat by Pulse 100 100 Oximetry 05/30/21 05/30/21 05/30/21 01:01 01:31 02:01 Temperature Pulse Rate 136 H 130 H 132 H Pulse Rate [ From Monitor] Respiratory 36 H 34 H 35 H Rate Blood Pressure 169/83 169/83 142/67 O2 Sat by Pulse 99 100 Oximetry 05/30/21 05/30/21 05/30/21 02:31 03:01 03:31 Temperature Pulse Rate 131 H 130 H 127 H Pulse Rate [ From Monitor] Respiratory 36 H 37 H 38 H Rate Blood Pressure 142/67 134/50 134/50 O2 Sat by Pulse 99 100 100 Oximetry 05/30/21 05/30/21 05/30/21 04:00 04:01 04:15 Temperature 102.8 F H Pulse Rate 125 H 125 H 124 H Pulse Rate [ 125 H From Monitor] Respiratory 36 H 36 H Rate Blood Pressure 135/74 135/74 O2 Sat by Pulse 100 100 Oximetry 05/30/21 05/30/21 05/30/21 04:31 05:00 05:31 Temperature Pulse Rate 124 H 122 H 120 H Pulse Rate [ From Monitor] Respiratory 37 H 38 H 37 H Rate Blood Pressure 135/74 130/70 130/70 O2 Sat by Pulse 100 100 100 Oximetry 05/30/21 05/30/21 05/30/21 06:00 06:30 07:00 Temperature Pulse Rate 120 H 113 H 108 H Pulse Rate [ From Monitor] Respiratory 38 H 26 H 24 Rate Blood Pressure 118/76 104/71 125/70 O2 Sat by Pulse 99 100 99 Oximetry 05/30/21 05/30/21 05/30/21 07:30 07:49 08:00 Temperature 101.0 F H Pulse Rate 105 H 102 H Pulse Rate [ From Monitor] Respiratory 23 Rate Blood Pressure 128/68 116/75 O2 Sat by Pulse 99 100 Oximetry 05/30/21 09:35 Temperature Pulse Rate Pulse Rate [ From Monitor] Respiratory Rate Blood Pressure 122/72 O2 Sat by Pulse Oximetry Constitutional: no acute distress, other (orally intuabted to MVS, no dys- synchrony, ETT 7.5 at 22 at the lip) Eyes: non-icteric ENT: oropharynx dry Neck: supple, no lymphadenopathy Effort: normal Ascultation: Bilateral: diminished breath sounds Cardiovascular: regular rate and rhythm, other (S1,S2) Gastrointestinal: normoactive bowel sounds, soft, non-tender, other (White in place) Integumentary: normal Extremities: no cyanosis, no edema Neurologic: pupils equal and round, other (encephalopathic) Psychiatric: other (unable to assess) CBC and BMP: 05/27/21 02:00 05/31/21 04:33 ABG, PT/INR, D-dimer: ABG ABG pH 7.484 (7.320-7.450) H 05/30/21 01:20 POC ABG pCO2 24.6 mmHg (32.0-48.0) L 05/30/21 01:20 POC ABG pO2 131.2 mmHg (83-108) H 05/30/21 01:20 POC ABG HCO3 18.1 05/30/21 01:20 ABG O2 Saturation 98.5 (0-100) 05/30/21 01:20 PT/INR, D-dimer D-Dimer 8255.81 ng/mlDDU (0-234) H 05/26/21 17:08 Abnormal lab findings: Abnormal Labs 05/26/21 05/26/21 05/26/21 17:08 17:08 17:08 WBC Hgb MCH MCHC 31 L RDW 16.2 H Plt Count 80 L Seg Neuts % (Manual) Lymphocytes % (Manual) Seg Neutrophils # Man Lymphocytes # (Manual) Monocytes # (Manual) APTT 42.4 H D-Dimer 8255.81 H ABG pH POC ABG pCO2 POC ABG pO2 ABG Hemoglobin ABG Oxyhemoglobin ABG Sodium ABG Chloride ABG Glucose Carboxyhemoglobin Sodium 180 H* Chloride 140 H Carbon Dioxide 21 L BUN 118 H Creatinine 5.4 H Glucose 133 H POC Glucose Lactic Acid Calcium 8.1 L Phosphorus Ferritin AST 97 H ALT 71 H Alkaline Phosphatase 138 H Lactate Dehydrogenase 550 H Troponin T 0.038 H C-Reactive Protein 4.20 H Albumin 3.3 L Triglycerides 150 H HDL Cholesterol 24 L Arterial Blood Glucose Arterial Blood Ionized Calcium Urine WBC (Auto) Urine Creatinine Salicylates Acetaminophen 05/26/21 05/26/21 05/26/21 17:08 17:08 17:08 WBC Hgb MCH MCHC RDW Plt Count Seg Neuts % (Manual) Lymphocytes % (Manual) Seg Neutrophils # Man Lymphocytes # (Manual) Monocytes # (Manual) APTT D-Dimer ABG pH POC ABG pCO2 POC ABG pO2 ABG Hemoglobin ABG Oxyhemoglobin ABG Sodium ABG Chloride ABG Glucose Carboxyhemoglobin Sodium Chloride Carbon Dioxide BUN Creatinine Glucose POC Glucose Lactic Acid 3.90 H* Calcium Phosphorus Ferritin 598.3 H AST ALT Alkaline Phosphatase Lactate Dehydrogenase Troponin T C-Reactive Protein Albumin Triglycerides HDL Cholesterol Arterial Blood Glucose Arterial Blood Ionized Calcium Urine WBC (Auto) Urine Creatinine Salicylates Acetaminophen < 5.0 L 05/26/21 05/26/21 05/26/21 17:08 17:27 23:28 WBC Hgb MCH MCHC RDW Plt Count Seg Neuts % (Manual) Lymphocytes % (Manual) Seg Neutrophils # Man Lymphocytes # (Manual) Monocytes # (Manual) APTT D-Dimer ABG pH POC ABG pCO2 POC ABG pO2 453.5 H ABG Hemoglobin 11.5 L ABG Oxyhemoglobin 98.7 H ABG Sodium 198.2 H ABG Chloride ABG Glucose 116 H Carboxyhemoglobin 0.3 L Sodium Chloride Carbon Dioxide BUN Creatinine Glucose POC Glucose 182 H Lactic Acid Calcium Phosphorus Ferritin AST ALT Alkaline Phosphatase Lactate Dehydrogenase Troponin T C-Reactive Protein Albumin Triglycerides HDL Cholesterol Arterial Blood Glucose 116 H Arterial Blood Ionized Calcium Urine WBC (Auto) Urine Creatinine Salicylates < 0.3 L Acetaminophen 05/26/21 05/26/21 05/27/21 Unknown Unknown 01:58 WBC Hgb MCH MCHC RDW Plt Count Seg Neuts % (Manual) Lymphocytes % (Manual) Seg Neutrophils # Man Lymphocytes # (Manual) Monocytes # (Manual) APTT D-Dimer ABG pH POC ABG pCO2 POC ABG pO2 ABG Hemoglobin ABG Oxyhemoglobin ABG Sodium ABG Chloride ABG Glucose Carboxyhemoglobin Sodium Chloride Carbon Dioxide BUN Creatinine Glucose POC Glucose Lactic Acid 2.90 H* Calcium Phosphorus Ferritin AST ALT Alkaline Phosphatase Lactate Dehydrogenase Troponin T C-Reactive Protein Albumin Triglycerides HDL Cholesterol Arterial Blood Glucose Arterial Blood Ionized Calcium Urine WBC (Auto) 16.0 H Urine Creatinine 51.6 H Salicylates Acetaminophen 05/27/21 05/27/21 05/27/21 02:00 02:00 03:19 WBC 27.1 H Hgb 11.1 L MCH 27 L MCHC 31 L RDW 16.1 H Plt Count 62 L Seg Neuts % (Manual) 93.0 H Lymphocytes % (Manual) 3.0 L Seg Neutrophils # Man 25.2 H Lymphocytes # (Manual) 0.8 L Monocytes # (Manual) 1.1 H APTT D-Dimer ABG pH POC ABG pCO2 31.7 L POC ABG pO2 79.5 L ABG Hemoglobin 10.9 L ABG Oxyhemoglobin ABG Sodium 181.4 H ABG Chloride ABG Glucose 276 H Carboxyhemoglobin 0.1 L Sodium 180 H* Chloride 140 H Carbon Dioxide 19 L BUN 100 H Creatinine 4.3 H Glucose 272 H POC Glucose Lactic Acid Calcium 7.0 L Phosphorus 5.00 H Ferritin AST 66 H ALT 64 H Alkaline Phosphatase Lactate Dehydrogenase Troponin T C-Reactive Protein Albumin 2.9 L Triglycerides HDL Cholesterol Arterial Blood Glucose 276 H Arterial Blood Ionized Calcium 4.1 L Urine WBC (Auto) Urine Creatinine Salicylates Acetaminophen 05/27/21 05/27/21 05/27/21 08:22 08:22 12:08 WBC Hgb MCH MCHC RDW Plt Count Seg Neuts % (Manual) Lymphocytes % (Manual) Seg Neutrophils # Man Lymphocytes # (Manual) Monocytes # (Manual) APTT D-Dimer ABG pH POC ABG pCO2 POC ABG pO2 ABG Hemoglobin ABG Oxyhemoglobin ABG Sodium ABG Chloride ABG Glucose Carboxyhemoglobin Sodium 179 H* Chloride > 139 H Carbon Dioxide 21 L 19 L BUN 103 H 105 H Creatinine 4.2 H 4.2 H Glucose 271 H 217 H POC Glucose Lactic Acid 2.20 H* Calcium 7.3 L 7.0 L Phosphorus Ferritin AST ALT Alkaline Phosphatase Lactate Dehydrogenase Troponin T C-Reactive Protein Albumin Triglycerides HDL Cholesterol Arterial Blood Glucose Arterial Blood Ionized Calcium Urine WBC (Auto) Urine Creatinine Salicylates Acetaminophen 05/27/21 05/27/21 05/27/21 12:14 18:03 23:15 WBC Hgb MCH MCHC RDW Plt Count Seg Neuts % (Manual) Lymphocytes % (Manual) Seg Neutrophils # Man Lymphocytes # (Manual) Monocytes # (Manual) APTT D-Dimer ABG pH POC ABG pCO2 POC ABG pO2 ABG Hemoglobin ABG Oxyhemoglobin ABG Sodium ABG Chloride ABG Glucose Carboxyhemoglobin Sodium Chloride Carbon Dioxide BUN Creatinine Glucose POC Glucose 184 H 183 H 191 H Lactic Acid Calcium Phosphorus Ferritin AST ALT Alkaline Phosphatase Lactate Dehydrogenase Troponin T C-Reactive Protein Albumin Triglycerides HDL Cholesterol Arterial Blood Glucose Arterial Blood Ionized Calcium Urine WBC (Auto) Urine Creatinine Salicylates Acetaminophen 05/28/21 05/28/21 05/28/21 03:19 05:15 08:47 WBC Hgb MCH MCHC RDW Plt Count Seg Neuts % (Manual) Lymphocytes % (Manual) Seg Neutrophils # Man Lymphocytes # (Manual) Monocytes # (Manual) APTT D-Dimer ABG pH POC ABG pCO2 29.6 L POC ABG pO2 115.2 H ABG Hemoglobin 10.2 L ABG Oxyhemoglobin ABG Sodium 153.6 H ABG Chloride 129.0 H ABG Glucose 215 H Carboxyhemoglobin 0.3 L Sodium 159 H D Chloride 123.7 H Carbon Dioxide 20 L BUN 88 H Creatinine 2.9 H Glucose 177 H POC Glucose 184 H Lactic Acid Calcium 6.3 L Phosphorus Ferritin AST ALT Alkaline Phosphatase Lactate Dehydrogenase Troponin T C-Reactive Protein Albumin Triglycerides HDL Cholesterol Arterial Blood Glucose 215 H Arterial Blood Ionized Calcium 3.7 L Urine WBC (Auto) Urine Creatinine Salicylates Acetaminophen 05/28/21 05/28/21 05/28/21 11:50 16:27 17:23 WBC Hgb MCH MCHC RDW Plt Count Seg Neuts % (Manual) Lymphocytes % (Manual) Seg Neutrophils # Man Lymphocytes # (Manual) Monocytes # (Manual) APTT D-Dimer ABG pH POC ABG pCO2 POC ABG pO2 ABG Hemoglobin ABG Oxyhemoglobin ABG Sodium ABG Chloride ABG Glucose Carboxyhemoglobin Sodium 154 H Chloride Carbon Dioxide BUN Creatinine Glucose POC Glucose 130 H 113 H Lactic Acid Calcium Phosphorus Ferritin AST ALT Alkaline Phosphatase Lactate Dehydrogenase Troponin T C-Reactive Protein Albumin Triglycerides HDL Cholesterol Arterial Blood Glucose Arterial Blood Ionized Calcium Urine WBC (Auto) Urine Creatinine Salicylates Acetaminophen 05/28/21 05/29/21 05/29/21 23:28 02:59 04:15 WBC Hgb MCH MCHC RDW Plt Count Seg Neuts % (Manual) Lymphocytes % (Manual) Seg Neutrophils # Man Lymphocytes # (Manual) Monocytes # (Manual) APTT D-Dimer ABG pH 7.481 H POC ABG pCO2 24.6 L POC ABG pO2 ABG Hemoglobin 10.6 L ABG Oxyhemoglobin ABG Sodium 149.5 H ABG Chloride 122.0 H ABG Glucose 129 H Carboxyhemoglobin 0.3 L Sodium 159 H Chloride 124.0 H Carbon Dioxide 21 L BUN 88 H Creatinine 2.4 H Glucose 136 H POC Glucose 139 H Lactic Acid Calcium 6.8 L Phosphorus Ferritin AST ALT Alkaline Phosphatase Lactate Dehydrogenase Troponin T C-Reactive Protein Albumin Triglycerides HDL Cholesterol Arterial Blood Glucose 129 H Arterial Blood Ionized Calcium 3.8 L Urine WBC (Auto) Urine Creatinine Salicylates Acetaminophen 05/29/21 05/29/21 05/29/21 05:13 15:35 18:05 WBC Hgb MCH MCHC RDW Plt Count Seg Neuts % (Manual) Lymphocytes % (Manual) Seg Neutrophils # Man Lymphocytes # (Manual) Monocytes # (Manual) APTT D-Dimer ABG pH POC ABG pCO2 POC ABG pO2 ABG Hemoglobin ABG Oxyhemoglobin ABG Sodium ABG Chloride ABG Glucose Carboxyhemoglobin Sodium 160 H Chloride 124.8 H Carbon Dioxide 20 L BUN 83 H Creatinine 1.9 H Glucose 147 H POC Glucose 138 H 141 H Lactic Acid Calcium 7.1 L Phosphorus Ferritin AST ALT Alkaline Phosphatase Lactate Dehydrogenase Troponin T C-Reactive Protein Albumin Triglycerides HDL Cholesterol Arterial Blood Glucose Arterial Blood Ionized Calcium Urine WBC (Auto) Urine Creatinine Salicylates Acetaminophen 05/29/21 05/30/21 05/30/21 23:22 01:20 04:33 WBC Hgb MCH MCHC RDW Plt Count Seg Neuts % (Manual) Lymphocytes % (Manual) Seg Neutrophils # Man Lymphocytes # (Manual) Monocytes # (Manual) APTT D-Dimer ABG pH 7.484 H POC ABG pCO2 24.6 L POC ABG pO2 131.2 H ABG Hemoglobin 11.7 L ABG Oxyhemoglobin 98.1 H ABG Sodium 155.7 H ABG Chloride 126.0 H ABG Glucose 191 H Carboxyhemoglobin 0.1 L Sodium 162 H* Chloride 129.0 H Carbon Dioxide 19 L BUN 89 H Creatinine 2.1 H Glucose 190 H POC Glucose 160 H Lactic Acid Calcium 7.4 L Phosphorus Ferritin AST ALT Alkaline Phosphatase Lactate Dehydrogenase Troponin T C-Reactive Protein Albumin Triglycerides HDL Cholesterol Arterial Blood Glucose 191 H Arterial Blood Ionized Calcium 4.1 L Urine WBC (Auto) Urine Creatinine Salicylates Acetaminophen 05/30/21 05:21 WBC Hgb MCH MCHC RDW Plt Count Seg Neuts % (Manual) Lymphocytes % (Manual) Seg Neutrophils # Man Lymphocytes # (Manual) Monocytes # (Manual) APTT D-Dimer ABG pH POC ABG pCO2 POC ABG pO2 ABG Hemoglobin ABG Oxyhemoglobin ABG Sodium ABG Chloride ABG Glucose Carboxyhemoglobin Sodium Chloride Carbon Dioxide BUN Creatinine Glucose POC Glucose 169 H Lactic Acid Calcium Phosphorus Ferritin AST ALT Alkaline Phosphatase Lactate Dehydrogenase Troponin T C-Reactive Protein Albumin Triglycerides HDL Cholesterol Arterial Blood Glucose Arterial Blood Ionized Calcium Urine WBC (Auto) Urine Creatinine Salicylates Acetaminophen Chest x-ray: image reviewed Allied health notes reviewed: RT
[2021-05-30] MEDS: POTASSIUM CHLORIDE 10 MEQ in DEXTROSE 5% IN WATER 1,000 ML IV SCH (11:52)
[2021-05-30 16:06] LABS: Calcium 7.2 mg/dL (8.4-10.2)
[2021-05-30] MEDS: CEFEPIME/NS 1 GM/100 ML 1 GM/100 ML BAG IV SCH (17:36)
[2021-05-31] MEDS: POTASSIUM CHLORIDE 10 MEQ in DEXTROSE 5% IN WATER 1,000 ML IV SCH (01:32)
[2021-05-31 05:26] LABS: BUN/Creatinine Ratio 47; Blood Urea Nitrogen 52 mg/dL (9-20); Calcium 7.1 mg/dL (8.4-10.2); Hemolysis Index 242
--- NOTE | 2021-05-31 06:19 | XRay Report ---
XR chest 1V ap INDICATION / CLINICAL INFORMATION: follow up respiratory failure. COMPARISON: 05/30/2021 FINDINGS: SUPPORT DEVICES: Unchanged. HEART /PULMONARY VASCULATURE: No significant abnormality. LUNGS / PLEURA: Improved lung aeration. No new or increasing consolidation. No pleural effusion. No p neumothorax. ADDITIONAL FINDINGS: No significant additional findings. IMPRESSION: No acute chest findings. Stable support devices. Signer Name: Curtis Amezcua MD Signed: 05/31/2021 6:14 AM Workstation Name: [id number]
[2021-05-31] MEDS ORDERED: CALCIUM GLUCONATE 2,000 MG in SODIUM CHLORIDE 0.9% 100 ML IV ONE (08:30)
[2021-05-31] MEDS ORDERED: SODIUM PHOSPHATE 15 MMOL in SODIUM CHLORIDE 0.9% 250ML 150 ML IV ONE (08:30)
--- NOTE | 2021-05-31 10:05 | Progress Note ---
Assessment and Plan Acute hypoxemic resp failure on MVS Acute metabolic encephalopathy Sepsis Acute kidney injury (SIXTO) with acute tubular necrosis (ATN) Hypernatremia Pneumonia UTI (urinary tract infection) Protein calorie malnutrition Thrombocytopenia -Continue to titrate supplemental oxygen to keep SpO2 89-92% -VAP bundle addressed, aspiration precautions HOB >30 -Lung protective strategies - Continue with Daily SAT and SBT daily -Continue with nutritional support- continue enteric nutritional support at goal -Continue [id number] and free water flushes for hypernatremia. Goal to correct sodium by 8-10mEq every 24 hours. -Glycemic control. Accucheck, target blood glucose <180mg/dL, avoid hypoglycemia -VTE prophylaxis- Heparin -Stress ulcer prophylaxis-Famotidine -Mobility, off loading with frequent turning per facility protocol for pressure ulcer prevention (he is a high risk patient) -Continue to avoid delirium, maintain sleep-wake cycle, avoid benzodiazepines -Supportive transfusions as clinically indicated to keep HgB >7g/dL -Chronic home medications as clinically indicated -Cast catheter for ongoing urinary retention requiring frequent straight catheterizing of the bladder -Complete [id number] Cefepime to ceftriaxone for pansensitive E.coli. Continue Vancomycin, repeat blood cultures to document clearance. Total antibiotic course of 7 days of therapy -Continue to avoid nephrotoxins, adjust medications for CrCl/GFR CONDITION: CRITICAL PROGNOSIS: GUARDED CODE STATUS: FULL CODE The high probability of a clinically significant, sudden or life threatening deterioration of the [pulmonary,cardiovascular, renal, neurology] system(s) required my full and direct attention, intervention and personal management. The aggregate critical care time was [33] minutes. This time is in addition to time spent performing reported procedures but includes the following: [x] Data Review and interpretation [x] Patient assessment and monitoring of vital signs [x] Documentation [x] Medication orders and management Subjective Date of service: 05/31/21 Interval history: Follow up fro acute hypoxemic resp failure on MVS; severe hypernatremia;acute encephalopathy: SIXTO Seen and examined. Vitals, labs, medications, chart and imaging reviewed. Discussed with nursing and respiratory staff, mental status changes persist. No diarrhea, no vomiting, No fevers overnight. Remains orally intubated. On Propofol Blood cultures GPC in cluster, Urine culture- pansensitive E.coli Improving renal function and sodium Objective Vital Signs - 12hr 05/30/21 05/30/21 05/30/21 22:30 22:50 23:00 Temperature Pulse Rate 94 H 96 H 87 Pulse Rate [ From Monitor] Respiratory 28 H 20 Rate Blood Pressure 126/63 117/70 92/49 O2 Sat by Pulse 100 100 100 Oximetry 05/30/21 05/31/21 05/31/21 23:30 00:00 00:30 Temperature 99.7 F H Pulse Rate 91 H 90 91 H Pulse Rate [ 90 From Monitor] Respiratory 28 H 26 H 27 H Rate Blood Pressure 121/71 120/67 127/67 O2 Sat by Pulse 100 100 100 Oximetry 05/31/21 05/31/21 05/31/21 01:00 01:30 02:00 Temperature Pulse Rate 97 H 96 H 93 H Pulse Rate [ From Monitor] Respiratory 28 H 26 H 27 H Rate Blood Pressure 136/67 125/72 126/68 O2 Sat by Pulse 100 100 100 Oximetry 05/31/21 05/31/21 05/31/21 02:30 03:00 03:27 Temperature 99.9 F H Pulse Rate 97 H 96 H Pulse Rate [ From Monitor] Respiratory 28 H 25 H Rate Blood Pressure 137/68 128/71 O2 Sat by Pulse 100 100 Oximetry 05/31/21 05/31/21 05/31/21 03:30 03:34 04:00 Temperature Pulse Rate 97 H 94 H 92 H Pulse Rate [ 92 H From Monitor] Respiratory 22 27 H Rate Blood Pressure 127/103 127/103 130/63 O2 Sat by Pulse 100 100 100 Oximetry 05/31/21 05/31/21 05/31/21 04:30 05:00 05:30 Temperature Pulse Rate 95 H 97 H 100 H Pulse Rate [ From Monitor] Respiratory 30 H 30 H 29 H Rate Blood Pressure 140/75 141/73 136/76 O2 Sat by Pulse 100 100 100 Oximetry 05/31/21 05/31/21 05/31/21 06:00 06:30 07:00 Temperature 99.9 F H Pulse Rate 96 H 91 H 95 H Pulse Rate [ From Monitor] Respiratory 28 H 27 H 28 H Rate Blood Pressure 122/71 133/71 130/70 O2 Sat by Pulse 100 100 100 Oximetry 05/31/21 05/31/21 05/31/21 07:30 08:00 08:08 Temperature Pulse Rate 93 H 93 H 91 H Pulse Rate [ 93 H From Monitor] Respiratory 25 H 22 Rate Blood Pressure 130/68 124/70 124/70 O2 Sat by Pulse 100 100 100 Oximetry 05/31/21 05/31/21 08:30 09:00 Temperature Pulse Rate 92 H 93 H Pulse Rate [ From Monitor] Respiratory 29 H 30 H Rate Blood Pressure 118/64 145/68 O2 Sat by Pulse 99 100 Oximetry Constitutional: no acute distress, other (orally intuabted to MVS, no dys- synchrony, ETT 7.5 at 22 at the lip) Eyes: non-icteric ENT: oropharynx dry Neck: supple, no lymphadenopathy Effort: normal Ascultation: Bilateral: diminished breath sounds Cardiovascular: regular rate and rhythm, other (S1,S2) Gastrointestinal: normoactive bowel sounds, soft, non-tender, other (Cast in place) Integumentary: normal Extremities: no cyanosis, no edema Neurologic: pupils equal and round, other (encephalopathic) Psychiatric: other (unable to assess) CBC and BMP: 05/27/21 02:00 05/31/21 04:33 ABG, PT/INR, D-dimer: ABG ABG pH 7.484 (7.320-7.450) H 05/30/21 01:20 POC ABG pCO2 24.6 mmHg (32.0-48.0) L 05/30/21 01:20 POC ABG pO2 131.2 mmHg (83-108) H 05/30/21 01:20 POC ABG HCO3 18.1 05/30/21 01:20 ABG O2 Saturation 98.5 (0-100) 05/30/21 01:20 PT/INR, D-dimer D-Dimer 8255.81 ng/mlDDU (0-234) H 05/26/21 17:08 Abnormal lab findings: Abnormal Labs 05/26/21 05/26/21 05/26/21 17:08 17:08 17:08 WBC Hgb MCH MCHC 31 L RDW 16.2 H Plt Count 80 L Seg Neuts % (Manual) Lymphocytes % (Manual) Seg Neutrophils # Man Lymphocytes # (Manual) Monocytes # (Manual) APTT 42.4 H D-Dimer 8255.81 H ABG pH POC ABG pCO2 POC ABG pO2 ABG Hemoglobin ABG Oxyhemoglobin ABG Sodium ABG Chloride ABG Glucose Carboxyhemoglobin Sodium 180 H* Potassium Chloride 140 H Carbon Dioxide 21 L BUN 118 H Creatinine 5.4 H Glucose 133 H POC Glucose Lactic Acid Calcium 8.1 L Phosphorus Ferritin AST 97 H ALT 71 H Alkaline Phosphatase 138 H Lactate Dehydrogenase 550 H Troponin T 0.038 H C-Reactive Protein 4.20 H Albumin 3.3 L Triglycerides 150 H HDL Cholesterol 24 L Arterial Blood Glucose Arterial Blood Ionized Calcium Urine WBC (Auto) Urine Creatinine Salicylates Acetaminophen 05/26/21 05/26/21 05/26/21 17:08 17:08 17:08 WBC Hgb MCH MCHC RDW Plt Count Seg Neuts % (Manual) Lymphocytes % (Manual) Seg Neutrophils # Man Lymphocytes # (Manual) Monocytes # (Manual) APTT D-Dimer ABG pH POC ABG pCO2 POC ABG pO2 ABG Hemoglobin ABG Oxyhemoglobin ABG Sodium ABG Chloride ABG Glucose Carboxyhemoglobin Sodium Potassium Chloride Carbon Dioxide BUN Creatinine Glucose POC Glucose Lactic Acid 3.90 H* Calcium Phosphorus Ferritin 598.3 H AST ALT Alkaline Phosphatase Lactate Dehydrogenase Troponin T C-Reactive Protein Albumin Triglycerides HDL Cholesterol Arterial Blood Glucose Arterial Blood Ionized Calcium Urine WBC (Auto) Urine Creatinine Salicylates Acetaminophen < 5.0 L 05/26/21 05/26/21 05/26/21 17:08 17:27 23:28 WBC Hgb MCH MCHC RDW Plt Count Seg Neuts % (Manual) Lymphocytes % (Manual) Seg Neutrophils # Man Lymphocytes # (Manual) Monocytes # (Manual) APTT D-Dimer ABG pH POC ABG pCO2 POC ABG pO2 453.5 H ABG Hemoglobin 11.5 L ABG Oxyhemoglobin 98.7 H ABG Sodium 198.2 H ABG Chloride ABG Glucose 116 H Carboxyhemoglobin 0.3 L Sodium Potassium Chloride Carbon Dioxide BUN Creatinine Glucose POC Glucose 182 H Lactic Acid Calcium Phosphorus Ferritin AST ALT Alkaline Phosphatase Lactate Dehydrogenase Troponin T C-Reactive Protein Albumin Triglycerides HDL Cholesterol Arterial Blood Glucose 116 H Arterial Blood Ionized Calcium Urine WBC (Auto) Urine Creatinine Salicylates < 0.3 L Acetaminophen 05/26/21 05/26/21 05/27/21 Unknown Unknown 01:58 WBC Hgb MCH MCHC RDW Plt Count Seg Neuts % (Manual) Lymphocytes % (Manual) Seg Neutrophils # Man Lymphocytes # (Manual) Monocytes # (Manual) APTT D-Dimer ABG pH POC ABG pCO2 POC ABG pO2 ABG Hemoglobin ABG Oxyhemoglobin ABG Sodium ABG Chloride ABG Glucose Carboxyhemoglobin Sodium Potassium Chloride Carbon Dioxide BUN Creatinine Glucose POC Glucose Lactic Acid 2.90 H* Calcium Phosphorus Ferritin AST ALT Alkaline Phosphatase Lactate Dehydrogenase Troponin T C-Reactive Protein Albumin Triglycerides HDL Cholesterol Arterial Blood Glucose Arterial Blood Ionized Calcium Urine WBC (Auto) 16.0 H Urine Creatinine 51.6 H Salicylates Acetaminophen 05/27/21 05/27/21 05/27/21 02:00 02:00 03:19 WBC 27.1 H Hgb 11.1 L MCH 27 L MCHC 31 L RDW 16.1 H Plt Count 62 L Seg Neuts % (Manual) 93.0 H Lymphocytes % (Manual) 3.0 L Seg Neutrophils # Man 25.2 H Lymphocytes # (Manual) 0.8 L Monocytes # (Manual) 1.1 H APTT D-Dimer ABG pH POC ABG pCO2 31.7 L POC ABG pO2 79.5 L ABG Hemoglobin 10.9 L ABG Oxyhemoglobin ABG Sodium 181.4 H ABG Chloride ABG Glucose 276 H Carboxyhemoglobin 0.1 L Sodium 180 H* Potassium Chloride 140 H Carbon Dioxide 19 L BUN 100 H Creatinine 4.3 H Glucose 272 H POC Glucose Lactic Acid Calcium 7.0 L Phosphorus 5.00 H Ferritin AST 66 H ALT 64 H Alkaline Phosphatase Lactate Dehydrogenase Troponin T C-Reactive Protein Albumin 2.9 L Triglycerides HDL Cholesterol Arterial Blood Glucose 276 H Arterial Blood Ionized Calcium 4.1 L Urine WBC (Auto) Urine Creatinine Salicylates Acetaminophen 05/27/21 05/27/21 05/27/21 08:22 08:22 12:08 WBC Hgb MCH MCHC RDW Plt Count Seg Neuts % (Manual) Lymphocytes % (Manual) Seg Neutrophils # Man Lymphocytes # (Manual) Monocytes # (Manual) APTT D-Dimer ABG pH POC ABG pCO2 POC ABG pO2 ABG Hemoglobin ABG Oxyhemoglobin ABG Sodium ABG Chloride ABG Glucose Carboxyhemoglobin Sodium 179 H* Potassium Chloride > 139 H Carbon Dioxide 21 L 19 L BUN 103 H 105 H Creatinine 4.2 H 4.2 H Glucose 271 H 217 H POC Glucose Lactic Acid 2.20 H* Calcium 7.3 L 7.0 L Phosphorus Ferritin AST ALT Alkaline Phosphatase Lactate Dehydrogenase Troponin T C-Reactive Protein Albumin Triglycerides HDL Cholesterol Arterial Blood Glucose Arterial Blood Ionized Calcium Urine WBC (Auto) Urine Creatinine Salicylates Acetaminophen 05/27/21 05/27/21 05/27/21 12:14 18:03 23:15 WBC Hgb MCH MCHC RDW Plt Count Seg Neuts % (Manual) Lymphocytes % (Manual) Seg Neutrophils # Man Lymphocytes # (Manual) Monocytes # (Manual) APTT D-Dimer ABG pH POC ABG pCO2 POC ABG pO2 ABG Hemoglobin ABG Oxyhemoglobin ABG Sodium ABG Chloride ABG Glucose Carboxyhemoglobin Sodium Potassium Chloride Carbon Dioxide BUN Creatinine Glucose POC Glucose 184 H 183 H 191 H Lactic Acid Calcium Phosphorus Ferritin AST ALT Alkaline Phosphatase Lactate Dehydrogenase Troponin T C-Reactive Protein Albumin Triglycerides HDL Cholesterol Arterial Blood Glucose Arterial Blood Ionized Calcium Urine WBC (Auto) Urine Creatinine Salicylates Acetaminophen 05/28/21 05/28/21 05/28/21 03:19 05:15 08:47 WBC Hgb MCH MCHC RDW Plt Count Seg Neuts % (Manual) Lymphocytes % (Manual) Seg Neutrophils # Man Lymphocytes # (Manual) Monocytes # (Manual) APTT D-Dimer ABG pH POC ABG pCO2 29.6 L POC ABG pO2 115.2 H ABG Hemoglobin 10.2 L ABG Oxyhemoglobin ABG Sodium 153.6 H ABG Chloride 129.0 H ABG Glucose 215 H Carboxyhemoglobin 0.3 L Sodium 159 H D Potassium Chloride 123.7 H Carbon Dioxide 20 L BUN 88 H Creatinine 2.9 H Glucose 177 H POC Glucose 184 H Lactic Acid Calcium 6.3 L Phosphorus Ferritin AST ALT Alkaline Phosphatase Lactate Dehydrogenase Troponin T C-Reactive Protein Albumin Triglycerides HDL Cholesterol Arterial Blood Glucose 215 H Arterial Blood Ionized Calcium 3.7 L Urine WBC (Auto) Urine Creatinine Salicylates Acetaminophen 05/28/21 05/28/21 05/28/21 11:50 16:27 17:23 WBC Hgb MCH MCHC RDW Plt Count Seg Neuts % (Manual) Lymphocytes % (Manual) Seg Neutrophils # Man Lymphocytes # (Manual) Monocytes # (Manual) APTT D-Dimer ABG pH POC ABG pCO2 POC ABG pO2 ABG Hemoglobin ABG Oxyhemoglobin ABG Sodium ABG Chloride ABG Glucose Carboxyhemoglobin Sodium 154 H Potassium Chloride Carbon Dioxide BUN Creatinine Glucose POC Glucose 130 H 113 H Lactic Acid Calcium Phosphorus Ferritin AST ALT Alkaline Phosphatase Lactate Dehydrogenase Troponin T C-Reactive Protein Albumin Triglycerides HDL Cholesterol Arterial Blood Glucose Arterial Blood Ionized Calcium Urine WBC (Auto) Urine Creatinine Salicylates Acetaminophen 05/28/21 05/29/21 05/29/21 23:28 02:59 04:15 WBC Hgb MCH MCHC RDW Plt Count Seg Neuts % (Manual) Lymphocytes % (Manual) Seg Neutrophils # Man Lymphocytes # (Manual) Monocytes # (Manual) APTT D-Dimer ABG pH 7.481 H POC ABG pCO2 24.6 L POC ABG pO2 ABG Hemoglobin 10.6 L ABG Oxyhemoglobin ABG Sodium 149.5 H ABG Chloride 122.0 H ABG Glucose 129 H Carboxyhemoglobin 0.3 L Sodium 159 H Potassium Chloride 124.0 H Carbon Dioxide 21 L BUN 88 H Creatinine 2.4 H Glucose 136 H POC Glucose 139 H Lactic Acid Calcium 6.8 L Phosphorus Ferritin AST ALT Alkaline Phosphatase Lactate Dehydrogenase Troponin T C-Reactive Protein Albumin Triglycerides HDL Cholesterol Arterial Blood Glucose 129 H Arterial Blood Ionized Calcium 3.8 L Urine WBC (Auto) Urine Creatinine Salicylates Acetaminophen 05/29/21 05/29/21 05/29/21 05:13 15:35 18:05 WBC Hgb MCH MCHC RDW Plt Count Seg Neuts % (Manual) Lymphocytes % (Manual) Seg Neutrophils # Man Lymphocytes # (Manual) Monocytes # (Manual) APTT D-Dimer ABG pH POC ABG pCO2 POC ABG pO2 ABG Hemoglobin ABG Oxyhemoglobin ABG Sodium ABG Chloride ABG Glucose Carboxyhemoglobin Sodium 160 H Potassium Chloride 124.8 H Carbon Dioxide 20 L BUN 83 H Creatinine 1.9 H Glucose 147 H POC Glucose 138 H 141 H Lactic Acid Calcium 7.1 L Phosphorus Ferritin AST ALT Alkaline Phosphatase Lactate Dehydrogenase Troponin T C-Reactive Protein Albumin Triglycerides HDL Cholesterol Arterial Blood Glucose Arterial Blood Ionized Calcium Urine WBC (Auto) Urine Creatinine Salicylates Acetaminophen 05/29/21 05/30/21 05/30/21 23:22 01:20 04:33 WBC Hgb MCH MCHC RDW Plt Count Seg Neuts % (Manual) Lymphocytes % (Manual) Seg Neutrophils # Man Lymphocytes # (Manual) Monocytes # (Manual) APTT D-Dimer ABG pH 7.484 H POC ABG pCO2 24.6 L POC ABG pO2 131.2 H ABG Hemoglobin 11.7 L ABG Oxyhemoglobin 98.1 H ABG Sodium 155.7 H ABG Chloride 126.0 H ABG Glucose 191 H Carboxyhemoglobin 0.1 L Sodium 162 H* Potassium Chloride 129.0 H Carbon Dioxide 19 L BUN 89 H Creatinine 2.1 H Glucose 190 H POC Glucose 160 H Lactic Acid Calcium 7.4 L Phosphorus Ferritin AST ALT Alkaline Phosphatase Lactate Dehydrogenase Troponin T C-Reactive Protein Albumin Triglycerides HDL Cholesterol Arterial Blood Glucose 191 H Arterial Blood Ionized Calcium 4.1 L Urine WBC (Auto) Urine Creatinine Salicylates Acetaminophen 05/30/21 05/30/21 05/30/21 05:21 15:25 17:59 WBC Hgb MCH MCHC RDW Plt Count Seg Neuts % (Manual) Lymphocytes % (Manual) Seg Neutrophils # Man Lymphocytes # (Manual) Monocytes # (Manual) APTT D-Dimer ABG pH POC ABG pCO2 POC ABG pO2 ABG Hemoglobin ABG Oxyhemoglobin ABG Sodium ABG Chloride ABG Glucose Carboxyhemoglobin Sodium 161 H* Potassium 3.4 L Chloride 131.7 H Carbon Dioxide 18 L BUN 77 H Creatinine 1.5 H Glucose 200 H POC Glucose 169 H 147 H Lactic Acid Calcium 7.2 L Phosphorus Ferritin AST ALT Alkaline Phosphatase Lactate Dehydrogenase Troponin T C-Reactive Protein Albumin Triglycerides HDL Cholesterol Arterial Blood Glucose Arterial Blood Ionized Calcium Urine WBC (Auto) Urine Creatinine Salicylates Acetaminophen 05/30/21 05/31/21 05/31/21 23:34 04:33 05:29 WBC Hgb MCH MCHC RDW Plt Count Seg Neuts % (Manual) Lymphocytes % (Manual) Seg Neutrophils # Man Lymphocytes # (Manual) Monocytes # (Manual) APTT D-Dimer ABG pH POC ABG pCO2 POC ABG pO2 ABG Hemoglobin ABG Oxyhemoglobin ABG Sodium ABG Chloride ABG Glucose Carboxyhemoglobin Sodium 154 H Potassium Chloride 123.6 H Carbon Dioxide 19 L BUN 52 H Creatinine Glucose 139 H POC Glucose 153 H 132 H Lactic Acid Calcium 7.1 L Phosphorus 2.30 L Ferritin AST ALT Alkaline Phosphatase Lactate Dehydrogenase Troponin T C-Reactive Protein Albumin Triglycerides HDL Cholesterol Arterial Blood Glucose Arterial Blood Ionized Calcium Urine WBC (Auto) Urine Creatinine Salicylates Acetaminophen Allied health notes reviewed: RT
[2021-05-31] MEDS: SENNOSIDES/DOCUSATE SODIUM 8.6/50 MG TAB FEEDTUBE SCH ×3 (10:48→21:15)
[2021-05-31] MEDS: ZINC SULFATE 220 MG CAP PO SCH ×2 (10:48→21:15)
[2021-05-31] MEDS: CHOLECALCIFEROL (VIT D3) 1000 UNIT (25 mcg) TAB PO SCH (10:48)
[2021-05-31] MEDS: FAMOTIDINE 20 MG TAB PO SCH (10:48)
[2021-05-31] MEDS: ASCORBIC ACID 500 MG TAB PO SCH ×2 (10:49→21:15)
[2021-05-31] MEDS: TAMSULOSIN 0.4 MG CAP PO SCH (10:49)
[2021-05-31] MEDS: amLODIPine 10 MG TAB PO SCH (10:50)
[2021-05-31] MEDS: VANCOMYCIN 750 MG in SODIUM CHLORIDE 0.9% 250ML 250 ML IV SCH (10:51)
[2021-05-31] MEDS: cefTRIAXone/NS 2 GM/100 ML 2 GM/100 ML BAG IV SCH (10:51)
[2021-05-31] MEDS: HEPARIN 5,000 UNIT/1 ML VIAL SUB-Q SCH ×2 (10:51→21:15)
[2021-05-31] MEDS: PHOS-NAK POWDER PACKET PO SCH ×2 (11:03→17:47)
--- NOTE | 2021-05-31 12:22 | Progress Note ---
Assessment and Plan 1. Acute kidney injury: Vasomotor SIXTO in the volume depletion / dehydration. CT abdomen negative for hydro. Creatinine level was normal in 2019. Monitor renal function. Creatinine level is improving. Non-oliguric. Avoid nephrotoxic agents. Meds dosage based on GFR. 2. FEN: Hypernatremia, monitor. Sodium level is improving, continue IV D5W. Continue water flushes 300 ml Q4. Ur Osm 392. Follow Sodium level. Metabolic acidosis, monitor. Lactic acidosis. Replete Phos. Monitor lytes. 3. Acute respiratory failure with hypoxia: 2/2 PNA. Intubated, on vent. 4. Pneumonia, POA: Covid test negative. Abx. Follow cultures. 5. Elevated Troponin: Monitor. 6. Hypertension: Monitor BP. Meds as appropriate. 7. Acute metabolic Encephalopathy, POA: Monitor. Prognosis guarded. Subjective: Patient was seen and examined at the bedside. Spoke with RN. Examination: General appearance: well-developed, thin built, appears stated age, intubated, on vent HEENT: ATNC, pupils equal Neck: supple Respiratory: coarse breath sounds Cardiology: regular, S1S2, no murmur Gastrointestinal: soft, bowel sounds heard, not tender Integumentary: no rash, warm and dry Neurologic: not responding Ext: no edema : Cast catheter Subjective Date of service: 05/31/21 Objective - Vital Signs Vital signs: Vital Signs - 12hr 05/31/21 05/31/21 05/31/21 00:30 01:00 01:30 Temperature Pulse Rate 91 H 97 H 96 H Pulse Rate [ From Monitor] Respiratory 27 H 28 H 26 H Rate Blood Pressure 127/67 136/67 125/72 O2 Sat by Pulse 100 100 100 Oximetry 05/31/21 05/31/21 05/31/21 02:00 02:30 03:00 Temperature Pulse Rate 93 H 97 H 96 H Pulse Rate [ From Monitor] Respiratory 27 H 28 H 25 H Rate Blood Pressure 126/68 137/68 128/71 O2 Sat by Pulse 100 100 100 Oximetry 05/31/21 05/31/21 05/31/21 03:27 03:30 03:34 Temperature 99.9 F H Pulse Rate 97 H 94 H Pulse Rate [ From Monitor] Respiratory 22 Rate Blood Pressure 127/103 127/103 O2 Sat by Pulse 100 100 Oximetry 05/31/21 05/31/21 05/31/21 04:00 04:30 05:00 Temperature Pulse Rate 92 H 95 H 97 H Pulse Rate [ 92 H From Monitor] Respiratory 27 H 30 H 30 H Rate Blood Pressure 130/63 140/75 141/73 O2 Sat by Pulse 100 100 100 Oximetry 05/31/21 05/31/21 05/31/21 05:30 06:00 06:30 Temperature Pulse Rate 100 H 96 H 91 H Pulse Rate [ From Monitor] Respiratory 29 H 28 H 27 H Rate Blood Pressure 136/76 122/71 133/71 O2 Sat by Pulse 100 100 100 Oximetry 05/31/21 05/31/21 05/31/21 07:00 07:30 08:00 Temperature 99.9 F H Pulse Rate 95 H 93 H 93 H Pulse Rate [ 93 H From Monitor] Respiratory 28 H 25 H 22 Rate Blood Pressure 130/70 130/68 124/70 O2 Sat by Pulse 100 100 100 Oximetry 05/31/21 05/31/21 05/31/21 08:08 08:30 09:00 Temperature Pulse Rate 91 H 92 H 93 H Pulse Rate [ From Monitor] Respiratory 29 H 30 H Rate Blood Pressure 124/70 118/64 145/68 O2 Sat by Pulse 100 99 100 Oximetry 05/31/21 05/31/21 05/31/21 09:30 10:00 10:30 Temperature Pulse Rate 92 H 93 H 88 Pulse Rate [ From Monitor] Respiratory 31 H 31 H 30 H Rate Blood Pressure 145/68 139/65 134/62 O2 Sat by Pulse 100 100 100 Oximetry 05/31/21 05/31/21 05/31/21 11:00 11:28 11:30 Temperature Pulse Rate 84 86 87 Pulse Rate [ From Monitor] Respiratory 29 H 27 H 27 H Rate Blood Pressure 127/61 138/64 134/65 O2 Sat by Pulse 100 100 100 Oximetry - Lab 05/27/21 02:00 05/31/21 04:33 Most recent lab results ABG pH 7.484 (7.320-7.450) H 05/30/21 01:20 ABG O2 Saturation 98.5 (0-100) 05/30/21 01:20 Calcium 7.1 mg/dL (8.4-10.2) L 05/31/21 04:33 Phosphorus 2.30 mg/dL (2.5-4.5) L 05/31/21 04:33 Magnesium 1.90 mg/dL (1.7-2.3) 05/30/21 04:33 Urine Creatinine 51.6 mg/dL (0.1-20.0) H 05/26/21 Unknown Urine Sodium 96 mmol/L 05/26/21 Unknown Medications & Allergies - Medications Allergies/Adverse Reactions: Allergies No Known Allergies Allergy (Verified 05/29/21 18:46) Home Medications: Home Medications Medication Instructions Recorded Confirmed Last Taken Type No Known Home Medications [No 05/26/21 05/26/21 Unknown History Reported Home Medications] Active Medications: Generic Name Dose Route Start Last Admin Trade Name Freq PRN Reason Stop Dose Admin Acetaminophen 650 mg 05/30/21 08:30 05/30/21 09:33 Acetaminophen 325 Mg/10.15 Ml Oral Liqd Unit Dose FEEDTUBE 650 mg Q6H PRN Administration Pain 1 -3, fever >100.5 Albuterol 2.5 mg 05/26/21 18:34 Albuterol 2.5 Mg/3 Ml Nebu IH Q3HRT PRN Shortness Of Breath Amlodipine Besylate 10 mg 05/29/21 12:00 05/31/21 10:50 Amlodipine 10 Mg Tab PO 10 mg QDAY ONDINA Administration Lipase/Protease/Amylase 1 each 05/28/21 08:24 Lipase 10,500/Protease 25,000/Amylase 43,750 (Units) Dr De Leon FEEDTUBE PRN PRN For Clogged Feeding Tube Ascorbic Acid 500 mg 05/26/21 22:00 05/31/21 10:49 Ascorbic Acid 500 Mg Tab PO 500 mg BID ONDINA Administration Cholecalciferol 1,000 unit 05/27/21 10:00 05/31/21 10:48 Cholecalciferol (Vit D3) 1000 Unit (25 Mcg) Tab PO 1,000 unit QDAY ONDINA Administration Famotidine 20 mg 05/28/21 10:00 05/31/21 10:48 Famotidine 20 Mg Tab PO 20 mg DAILY ONDINA Administration Heparin Sodium (Porcine) 5,000 unit 05/26/21 22:00 05/31/21 10:51 Heparin 5,000 Unit/1 Ml Vial SUB-Q 5,000 unit Q12HR ONDINA Administration Hydrophilic Ointment 1 applic 05/26/21 17:02 Lip Therapy Vaseline TP Q2HR PRN Dry Lips Propofol 1,000 mg in 100 mls @ 1.361 mls/hr 05/30/21 06:00 05/30/21 23:06 Diprivan 10 Mg/Ml IV 5 mcg/kg/min TITR ONDINA 1.361 mls/hr Titration Protocol 5 MCG/KG/MIN Vancomycin HCl 750 mg/ Sodium 265 mls @ 166.667 mls/hr 05/31/21 10:00 05/31/21 10:51 Chloride IV 06/01/21 11:36 166.667 mls/hr Q24H ONDINA Administration Ceftriaxone Sodium 2 gm in 100 mls @ 200 mls/hr 05/31/21 10:00 05/31/21 10:51 Rocephin/Ns 2 Gm/100 Ml IV 06/02/21 10:29 200 mls/hr Q24H ONDINA Administration Protocol Dextrose 1,000 mls @ 75 mls/hr 05/31/21 13:00 D5w IV DIRECT ONDINA Multi-Ingred Cream/Lotion/Oil/Oint 1 applic 05/26/21 17:02 Mineral Oil/Petrolatum, White Ophth Oint 3.5 Gm OU Q4HR PRN Dry Eye(s) Potassium Phos/Sodium Phos 1 each 05/31/21 09:00 05/31/21 11:03 Phos-Nak Powder Packet PO 06/01/21 01:01 1 each Q8H ONDINA Administration Senna/Docusate Sodium 1 tab 05/26/21 22:00 05/31/21 10:48 Sennosides/Docusate Sodium 8.6/50 Mg Tab FEEDTUBE 1 tab BID ONDINA Administration Simple Syrup 15 ml 05/28/21 08:24 Simple Syrup 15 Ml FEEDTUBE PRN PRN Hypoglycemia Simple Syrup 30 ml 05/28/21 08:24 Simple Syrup 15 Ml FEEDTUBE PRN PRN Hypoglycemia Sodium Bicarbonate 325 mg 05/28/21 08:24 Sodium Bicarbonate 325 Mg Tab FEEDTUBE PRN PRN For Clogged Feeding Tube Sodium Chloride 10 ml 05/26/21 22:00 05/31/21 11:01 Sodium Chloride 0.9% 10 Ml Flush Syringe IV 10 ml BID ONDINA Administration Sodium Chloride 10 ml 05/26/21 18:34 Sodium Chloride 0.9% 10 Ml Flush Syringe IV PRN PRN LINE FLUSH Tamsulosin HCl 0.8 mg 05/29/21 12:00 05/31/21 10:49 Tamsulosin 0.4 Mg Cap PO 0.8 mg QDAY ONDINA Administration Zinc Sulfate 220 mg 05/26/21 22:00 05/31/21 10:48 Zinc Sulfate 220 Mg Cap PO 220 mg BID ONDINA Administration
[2021-05-31] MEDS ORDERED: DEXTROSE 5% IN WATER 1,000 ML IV SCH (13:00)
[2021-05-31 18:18] LABS: BUN/Creatinine Ratio 44; Blood Urea Nitrogen 40 mg/dL (9-20); Hemolysis Index 15
--- NOTE | 2021-05-31 18:21 | Progress Note ---
Assessment and Plan Assessment and plan: This 81-year-old male with hypertension and dementia admitted with acute hypoxic respiratory failure suspected, COVID-19 PUI, pneumonia, hypernatremia, volume depletion, urinary tract infection, toxic metabolic encephalopathy, SIXTO, sepsis Neuro Acute metabolic encephalopathy -Aspiration/seizure precautions -Sedated with propofol while on mechanical ventilation -05/26 CT head shows no focal mass, hemorrhage, hydrocephalus or acute or large territorial infarct, mild to moderate mucosal thickening in the ethmoid with prior mastoidectomy noted on the right, vascular disease seen in the anterior and posterior circulation, moderate diffuse cerebral atrophy with anterior temporal lobe atrophy being the greatest, moderate to marked degree of hippocampal atrophy suggested bilaterally, suggestion of encephalomalacia in the inferior temporal lobe on the right as well as anterior temporal lobe with question prior branch infarct or trauma CV Hypertension -No recorded home medications -Amlodipine -Hydralazine as needed -Blood pressure monitor per protocol Possible CAD -05/26 CT chest/abdomen/pelvis without contrast showed faint bilateral patchy pulmonary opacities suggestive of infectious process such as pneumonia, dense atherosclerotic application of the thoracic aorta distribution of the coronary vessels, scattered patchy ill-defined densities within the mid and lower lung zone, mild prominence of both ureters, dense atherosclerotic calcification along the abdominal aorta without evidence of aneurysm Respiratory -Need to follow-up with PCP Elevated troponin -Possibly NSTEMI in setting of SIXTO -Trend CE Respiratory Acute hypoxemic respiratory failure -On mechanical ventilation -Wean mechanical ventilation as tolerated -VAP bundle -ABGs as needed -CXR daily for 7 days per protocol -Daily SBT FEN/GI Acute kidney injury/ATN -Presented with BUN/creatinine of 118/5.4 -Nephrology consulted, appreciate recommendations -Strict intake and output -Daily weights -Nephrotoxic medications -Renally dose medications -Trend BMP Protein calorie malnutrition -On tube feedings -SSI, Accu-Cheks every 6 -Nutrition consulted, patient recommendations Severe hypernatremia -Presented with a sodium of 180 -D5W gtt -Free water flush -Trend BMP Hypokalemia -05/31 potassium is 3.4 -Repleted with p.o. KCl -Repeat BMP : NAD -White catheter in place ID/Heme Sepsis -Presented with with tachycardia, febrile to 102.8 degrees Fahrenheit, acute hypoxic respiratory failure, acute kidney injury, pneumonia on imaging, pyuria -ABX therapy -05/26 blood cultures x2 no growth after 5 days -05/26 sputum culture grew E. coli, Staph aureus (pansensitive) -05/26 urine culture with no growth after 48 hours -05/31 blood cultures x2 in progress UTI -05/26 UA with pyuria -05/26 urine culture with no growth to date -S/p ABX Bilateral pneumonia -05/26 CT chest showed faint bilateral patchy pulmonary opacities suggestive of infectious process that is pneumonia -COVID-19 testing negative -ABX therapy -Pulmonary hygiene -05/26 sputum culture grew E. coli, staph areas Leukocytosis -Trend CBC -ABX therapy Thrombocytopenia -Trend CBC -Avoid chemical anticoagulation DVT/GI prophylaxis: Hold chemical anticoagulation in setting of thrombocytopenia, SCDs to bilateral tremors while in bed, PPI Disposition: ICU Lines: Mariaelena white The high probability of a clinically significant, sudden or life threatening deterioration of the [respiratory, renal and electrolyte] system(s) required my full and direct attention, intervention and personal management. The aggregate critical care time was [33] minutes. This time is in addition to time spent performing reported procedures but includes the following: [x] Data Review and interpretation [x] Patient assessment and monitoring of vital signs [x] Documentation [x] Medication orders and management History Interval history: This 81-year-old male with hypertension and dementia who presents to [facility] ER on 05/26 with decreased responsiveness since 05/25 per family. Patient was placed on nasopharyngeal airway and bagged by EMS on route to [facility]. Upon arrival to emergency indices 05/27/2021. Patient with severe hypernatremia secondary to dehydration/vasomotor nephropathy. Continue IV fluid hydration per nephrology recommendations. Patient with a creatinine September 2019 of 0.7. On this admission patient was noted to have a creatinine of 5.4. Slightly improved today to 4.2. Etiology secondary to vasomotor nephropathy/acute kidney injury/volume depletion/dehydration. Follow-up urine studies. CT scan of the abdomen pelvis did not reveal any obstruction. CT chest revealed bilateral pulmonary opacities. Patient with elevated D-dimer that may be secondary to Covid coagulopathy. Consider VQ scan. Unable to perform CTA given renal insufficiency. Await pulmonary consultation 05/28/2021. Hyponatremia has improved to 159. Continue IV fluid hydration per nephrology recommendations. Creatinine has also improved to 2.9. No ob struction per CT scan. COVID-19 testing negative on 05/27/2021. Continue IV antibiotics for bilateral pneumonia and UTI. Follow-up blood and urine cultures. Consider ID consultation patient remains on mechanical ventilation but undergoing PSV trials. Patient currently with PSV with FiO2 of 30% PEEP of 6 and pressure support of 10. Continue vent weaning per pulmonary. 05/29/2021. Hypernatremia persists with sodium improving to 154 yesterday evening but now back to 159. Creatinine has improved to 2.4. Nephrology following.Continue current antibiotics for pneumonia and UTI. Consider CTA of chest for elevated D-dimer when creatinine back to baseline. Patient currently on AC mode ventilation rate of 16, tidal volume 450, FiO2 30% and PEEP of 6. 05/30/2021. Sodium remains elevated at 162 and creatinine elevated at 2.1. Continue free water with 300 mL every 4 hours. Nephrology held IV D5W. Resume IV fluids per nephrology recommendations. CT scan of the abdomen negative for hydronephrosis. Continue IV antibiotics. Patient remains on mechanical ventilation AC mode rate of 20, tidal volume 450, FiO2 40% and a PEEP of 6. /: Patient has hypernatremia improved to 149, this a.m. patient was noted to have a potassium of 4.5 and potassium and his D5 was discontinued and changed to D5W. This evening he was noted the patient had a potassium of 3.4 which was repleted. Patient was started to have hypophosphatemia today which was repleted. Antibiotics were escalated to's ceftriaxone for pansensitive E. coli patient received 7 days of therapy so repeat blood cultures were ordered. Hospitalist Physical - Constitutional Vitals: Temp Pulse Resp BP Pulse Ox 98.5 F 86 25 H 128/62 100 05/31/21 17:56 05/31/21 17:39 05/31/21 17:30 05/31/21 17:39 05/31/21 17:39 General appearance: Present: severe distress HEART Score - HEART Score Troponin: Troponin T 0.038 ng/mL (0.00-0.029) H 05/26/21 17:08 Results - Labs CBC & Chem 7: 05/27/21 02:00 05/31/21 15:23 Labs: Laboratory Last Values WBC 27.1 K/mm3 (4.5-11.0) H 05/27/21 02:00 RBC 4.10 M/mm3 (3.65-5.03) 05/27/21 02:00 Hgb 11.1 gm/dl (11.8-15.2) L 05/27/21 02:00 Hct 35.6 % (35.5-45.6) 05/27/21 02:00 MCV 87 fl (84-94) 05/27/21 02:00 MCH 27 pg (28-32) L 05/27/21 02:00 MCHC 31 % (32-34) L 05/27/21 02:00 RDW 16.1 % (13.2-15.2) H 05/27/21 02:00 Plt Count 62 K/mm3 (140-440) L 05/27/21 02:00 Lymph % (Auto) 30.3 % (13.4-35.0) 05/26/21 17:08 Dickens % (Auto) 6.1 % (0.0-7.3) 05/26/21 17:08 Eos % (Auto) 1.0 % (0.0-4.3) 05/26/21 17:08 Baso % (Auto) 0.5 % (0.0-1.8) 05/26/21 17:08 Lymph # (Auto) 3.0 K/mm3 (1.2-5.4) 05/26/21 17:08 Dickens # (Auto) 0.6 K/mm3 (0.0-0.8) 05/26/21 17:08 Eos # (Auto) 0.1 K/mm3 (0.0-0.4) 05/26/21 17:08 Baso # (Auto) 0.1 K/mm3 (0.0-0.1) 05/26/21 17:08 Add Manual Diff Complete 05/27/21 02:00 Total Counted 100 05/27/21 02:00 Seg Neutrophils % Load Mixer 05/27/21 02:00 Seg Neuts % (Manual) 93.0 % (40.0-70.0) H 05/27/21 02:00 Lymphocytes % (Manual) 3.0 % (13.4-35.0) L 05/27/21 02:00 Monocytes % (Manual) 4.0 % (0.0-7.3) 05/27/21 02:00 Nucleated RBC % Not Reportable 05/27/21 02:00 Seg Neutrophils # 6.1 K/mm3 (1.8-7.7) 05/26/21 17:08 Seg Neutrophils # Man 25.2 K/mm3 (1.8-7.7) H 05/27/21 02:00 Band Neutrophils # 0.0 K/mm3 05/27/21 02:00 Lymphocytes # (Manual) 0.8 K/mm3 (1.2-5.4) L 05/27/21 02:00 Abs React Lymphs (Man) 0.0 K/mm3 05/27/21 02:00 Monocytes # (Manual) 1.1 K/mm3 (0.0-0.8) H 05/27/21 02:00 Eosinophils # (Manual) 0.0 K/mm3 (0.0-0.4) 05/27/21 02:00 Basophils # (Manual) 0.0 K/mm3 (0.0-0.1) 05/27/21 02:00 Metamyelocytes # 0.0 K/mm3 05/27/21 02:00 Myelocytes # 0.0 K/mm3 05/27/21 02:00 Promyelocytes # 0.0 K/mm3 05/27/21 02:00 Blast Cells # 0.0 K/mm3 05/27/21 02:00 WBC Morphology Not Reportable 05/27/21 02:00 Hypersegmented Neuts Not Reportable 05/27/21 02:00 Hyposegmented Neuts Not Reportable 05/27/21 02:00 Hypogranular Neuts Not Reportable 05/27/21 02:00 Smudge Cells Not Reportable 05/27/21 02:00 Toxic Granulation Not Reportable 05/27/21 02:00 Toxic Vacuolation Not Reportable 05/27/21 02:00 Dohle Bodies Not Reportable 05/27/21 02:00 Pelger-Huet Anomaly Not Reportable 05/27/21 02:00 Daniel Rods Not Reportable 05/27/21 02:00 Platelet Estimate Not Reportable 05/27/21 02:00 Clumped Platelets Not Reportable 05/27/21 02:00 Plt Clumps, EDTA Not Reportable 05/27/21 02:00 Large Platelets Not Reportable 05/27/21 02:00 Giant Platelets Not Reportable 05/27/21 02:00 Platelet Satelliting Not Reportable 05/27/21 02:00 Plt Morphology Comment Not Reportable 05/27/21 02:00 RBC Morphology Normal 05/27/21 02:00 Dimorphic RBCs Not Reportable 05/27/21 02:00 Polychromasia Not Reportable 05/27/21 02:00 Hypochromasia Not Reportable 05/27/21 02:00 Poikilocytosis Not Reportable 05/27/21 02:00 Anisocytosis Not Reportable 05/27/21 02:00 Microcytosis Not Reportable 05/27/21 02:00 Macrocytosis Not Reportable 05/27/21 02:00 Spherocytes Not Reportable 05/27/21 02:00 Pappenheimer Bodies Not Reportable 05/27/21 02:00 Sickle Cells Not Reportable 05/27/21 02:00 Target Cells Not Reportable 05/27/21 02:00 Tear Drop Cells Not Reportable 05/27/21 02:00 Ovalocytes Not Reportable 05/27/21 02:00 Helmet Cells Not Reportable 05/27/21 02:00 Huertas-Fillmore Bodies Not Reportable 05/27/21 02:00 [place] Rings Not Reportable 05/27/21 02:00 Handley Cells Not Reportable 05/27/21 02:00 Bite Cells Not Reportable 05/27/21 02:00 Crenated Cell Not Reportable 05/27/21 02:00 Elliptocytes Not Reportable 05/27/21 02:00 Acanthocytes (Spur) Not Reportable 05/27/21 02:00 Rouleaux Not Reportable 05/27/21 02:00 Hemoglobin C Crystals Not Reportable 05/27/21 02:00 Schistocytes Not Reportable 05/27/21 02:00 Malaria parasites Not Reportable 05/27/21 02:00 Arik Bodies Not Reportable 05/27/21 02:00 Hem Pathologist Commnt No 05/27/21 02:00 APTT 42.4 Sec. (24.2-36.6) H 05/26/21 17:08 D-Dimer 8255.81 ng/mlDDU (0-234) H 05/26/21 17:08 ABG pH 7.484 (7.320-7.450) H 05/30/21 01:20 POC ABG pCO2 24.6 mmHg (32.0-48.0) L 05/30/21 01:20 POC ABG pO2 131.2 mmHg (83-108) H 05/30/21 01:20 POC ABG HCO3 18.1 05/30/21 01:20 ABG O2 Saturation 98.5 (0-100) 05/30/21 01:20 POC ABG Base Excess -3.9 05/30/21 01:20 ABG Hemoglobin 11.7 (12.0-17.5) L 05/30/21 01:20 ABG Oxyhemoglobin 98.1 (94-98) H 05/30/21 01:20 ABG Methemoglobin 0.3 (0.0-1.5) 05/30/21 01:20 ABG Sodium 155.7 mmol/L (136.0-145.0) H 05/30/21 01:20 ABG Potassium 3.6 mmol/L (3.40-4.50) 05/30/21 01:20 ABG Chloride 126.0 mmol/L (98-107) H 05/30/21 01:20 ABG Glucose 191 mg/dL (65-95) H 05/30/21 01:20 Carboxyhemoglobin 0.1 (0.5-1.5) L 05/30/21 01:20 FiO2 % 50.0 05/30/21 01:20 Sodium 154 mmol/L (137-145) H 05/31/21 04:33 Potassium 4.5 mmol/L (3.6-5.0) D 05/31/21 04:33 Chloride 123.6 mmol/L (98-107) H 05/31/21 04:33 Carbon Dioxide 19 mmol/L (22-30) L 05/31/21 04:33 Anion Gap 16 mmol/L 05/31/21 04:33 BUN 52 mg/dL (9-20) H 05/31/21 04:33 Creatinine 1.1 mg/dL (0.8-1.3) 05/31/21 04:33 Estimated GFR > 60 ml/min 05/31/21 15:23 BUN/Creatinine Ratio 44 % 05/31/21 15:23 Glucose 139 mg/dL (75-100) H 05/31/21 04:33 POC Glucose 108 mg/dL (70-105) H 05/31/21 17:18 Lactic Acid 1.60 mmol/L (0.7-2.0) 05/27/21 12:08 Calcium 7.1 mg/dL (8.4-10.2) L 05/31/21 04:33 Phosphorus 2.30 mg/dL (2.5-4.5) L 05/31/21 04:33 Magnesium 1.90 mg/dL (1.7-2.3) 05/30/21 04:33 Ferritin 598.3 ng/mL (30.0-300.0) H 05/26/21 17:08 Total Bilirubin 0.50 mg/dL (0.1-1.2) 05/27/21 02:00 AST 66 units/L (5-40) H 05/27/21 02:00 ALT 64 units/L (7-56) H 05/27/21 02:00 Alkaline Phosphatase 126 units/L (35-129) 05/27/21 02:00 Ammonia 46.0 umol/L (25-60) 05/26/21 17:08 Lactate Dehydrogenase 550 units/L (91-180) H 05/26/21 17:08 Troponin T 0.038 ng/mL (0.00-0.029) H 05/26/21 17:08 C-Reactive Protein 4.20 mg/dL (0.00-1.30) H 05/26/21 17:08 Total Protein 6.6 g/dL (6.3-8.2) 05/27/21 02:00 Albumin 2.9 g/dL (3.9-5) L 05/27/21 02:00 Albumin/Globulin Ratio 0.8 % 05/27/21 02:00 Triglycerides 150 mg/dL (2-149) H 05/26/21 17:08 Cholesterol 145 mg/dL (50-199) 05/26/21 17:08 LDL Cholesterol Direct 84 mg/dL (50-130) 05/26/21 17:08 HDL Cholesterol 24 mg/dL (40-59) L 05/26/21 17:08 Cholesterol/HDL Ratio 6.04 % 05/26/21 17:08 Procalcitonin 0.29 ng/mL (<0.15) 05/26/21 17:08 TSH 0.342 mlU/mL (0.270-4.200) 05/26/21 17:08 Arterial Blood Glucose 191 mg/dL (65-95) H 05/30/21 01:20 Arterial Blood Ionized Calcium 4.1 mg/dL (4.6-5.3) L 05/30/21 01:20 Urine Color Yellow (Yellow) 05/26/21 Unknown Urine Turbidity Clear (Clear) 05/26/21 Unknown Urine pH 5.0 (5.0-7.0) 05/26/21 Unknown Ur Specific [place] 1.011 (1.003-1.030) 05/26/21 Unknown Urine Protein <15 mg/dl mg/dL (Negative) 05/26/21 Unknown Urine Glucose (UA) Neg mg/dL (Negative) 05/26/21 Unknown Urine Ketones Neg mg/dL (Negative) 05/26/21 Unknown Urine Blood Sm (Negative) 05/26/21 Unknown Urine Nitrite Neg (Negative) 05/26/21 Unknown Urine Bilirubin Neg (Negative) 05/26/21 Unknown Urine Urobilinogen < 2.0 mg/dL (<2.0) 05/26/21 Unknown Ur Leukocyte Esterase Neg (Negative) 05/26/21 Unknown Urine WBC (Auto) 16.0 /HPF (0.0-6.0) H 05/26/21 Unknown Urine RBC (Auto) 2.0 /HPF (0.0-6.0) 05/26/21 Unknown Urine Bacteria (Auto) 1+ /HPF (Negative) 05/26/21 Unknown Urine Osmolality 392 Mosm/kg 05/26/21 Unknown Urine Creatinine 51.6 mg/dL (0.1-20.0) H 05/26/21 Unknown Urine Sodium 96 mmol/L 05/26/21 Unknown Random Vancomycin 14.8 ug/mL (0-40.0) 05/30/21 08:29 Salicylates < 0.3 mg/dL (2.8-20.0) L 05/26/21 17:08 Acetaminophen < 5.0 ug/mL (10.0-30.0) L 05/26/21 17:08 Coronavirus (PCR) Negative (Negative) 05/27/21 Unknown Blood Type O POSITIVE 05/26/21 17:00 Antibody Screen Negative 05/26/21 17:00 Microbiology: Microbiology 05/26/21 17:05 Peripheral/Venous Blood Culture - Final NO GROWTH AFTER 5 DAYS 05/31/21 15:23 Peripheral/Venous Blood Culture - Preliminary Culture in Progress 05/31/21 15:23 Peripheral/Venous Blood Culture - Preliminary Culture in Progress White/IV: Voiding Method Indwelling Catheter Active Medications - Current Medications Current Medications: Generic Name Dose Route Start Last Admin Trade Name Freq PRN Reason Stop Dose Admin Acetaminophen 650 mg 05/30/21 08:30 05/30/21 09:33 Acetaminophen 325 Mg/10.15 Ml Oral Liqd Unit Dose FEEDTUBE 650 mg Q6H PRN Administration Pain 1 -3, fever >100.5 Albuterol 2.5 mg 05/26/21 18:34 Albuterol 2.5 Mg/3 Ml Nebu IH Q3HRT PRN Shortness Of Breath Amlodipine Besylate 10 mg 05/29/21 12:00 05/31/21 10:50 Amlodipine 10 Mg Tab PO 10 mg QDAY ONDINA Administration Lipase/Protease/Amylase 1 each 05/28/21 08:24 Lipase 10,500/Protease 25,000/Amylase 43,750 (Units) Dr De Leon FEEDTUBE PRN PRN For Clogged Feeding Tube Ascorbic Acid 500 mg 05/26/21 22:00 05/31/21 10:49 Ascorbic Acid 500 Mg Tab PO 500 mg BID ONDINA Administration Cholecalciferol 1,000 unit 05/27/21 10:00 05/31/21 10:48 Cholecalciferol (Vit D3) 1000 Unit (25 Mcg) Tab PO 1,000 unit QDAY ONDINA Administration Famotidine 20 mg 05/28/21 10:00 05/31/21 10:48 Famotidine 20 Mg Tab PO 20 mg DAILY ONDINA Administration Heparin Sodium (Porcine) 5,000 unit 05/26/21 22:00 05/31/21 10:51 Heparin 5,000 Unit/1 Ml Vial SUB-Q 5,000 unit Q12HR ONDINA Administration Hydrophilic Ointment 1 applic 05/26/21 17:02 Lip Therapy Vaseline TP Q2HR PRN Dry Lips Propofol 1,000 mg in 100 mls @ 1.361 mls/hr 05/30/21 06:00 05/30/21 23:06 Diprivan 10 Mg/Ml IV 5 mcg/kg/min TITR ONDINA 1.361 mls/hr Titration Protocol 5 MCG/KG/MIN Vancomycin HCl 750 mg/ Sodium 265 mls @ 166.667 mls/hr 05/31/21 10:00 05/31/21 10:51 Chloride IV 06/01/21 11:36 166.667 mls/hr Q24H ONDINA Administration Ceftriaxone Sodium 2 gm in 100 mls @ 200 mls/hr 05/31/21 10:00 05/31/21 10:51 Rocephin/Ns 2 Gm/100 Ml IV 06/02/21 10:29 200 mls/hr Q24H ONDINA Administration Protocol Dextrose 1,000 mls @ 75 mls/hr 05/31/21 13:00 D5w IV DIRECT ONDINA Multi-Ingred Cream/Lotion/Oil/Oint 1 applic 05/26/21 17:02 Mineral Oil/Petrolatum, White Ophth Oint 3.5 Gm OU Q4HR PRN Dry Eye(s) Potassium Phos/Sodium Phos 1 each 05/31/21 09:00 05/31/21 17:47 Phos-Nak Powder Packet PO 06/01/21 01:01 1 each Q8H ONDINA Administration Senna/Docusate Sodium 1 tab 05/26/21 22:00 05/31/21 10:48 Sennosides/Docusate Sodium 8.6/50 Mg Tab FEEDTUBE 1 tab BID ONDINA Administration Simple Syrup 15 ml 05/28/21 08:24 Simple Syrup 15 Ml FEEDTUBE PRN PRN Hypoglycemia Simple Syrup 30 ml 05/28/21 08:24 Simple Syrup 15 Ml FEEDTUBE PRN PRN Hypoglycemia Sodium Bicarbonate 325 mg 05/28/21 08:24 Sodium Bicarbonate 325 Mg Tab FEEDTUBE PRN PRN For Clogged Feeding Tube Sodium Chloride 10 ml 05/26/21 22:00 05/31/21 11:01 Sodium Chloride 0.9% 10 Ml Flush Syringe IV 10 ml BID ONDINA Administration Sodium Chloride 10 ml 05/26/21 18:34 Sodium Chloride 0.9% 10 Ml Flush Syringe IV PRN PRN LINE FLUSH Tamsulosin HCl 0.8 mg 05/29/21 12:00 05/31/21 10:49 Tamsulosin 0.4 Mg Cap PO 0.8 mg QDAY ONDINA Administration Zinc Sulfate 220 mg 05/26/21 22:00 05/31/21 10:48 Zinc Sulfate 220 Mg Cap PO 220 mg BID ONDINA Administration Nutrition/Malnutrition Assess - Dietary Evaluation Nutrition/Malnutrition Findings: Nutrition Notes Start: 05/27/21 08:35 Freq: Status: Active Protocol: Document 05/31/21 12:05 (Rec: 05/31/21 12:13 [email or web address]) Nutrition Notes Initial or Follow up Reassessment Current Diagnosis Acute Kidney Injury,Sepsis, Hypertension,Respiratory Failure Other Pertinent Diagnosis UTI, encephalopathy, dehydration, COVID PUI Current Diet Nepro 1.8 at 30 ml/hr Labs/Tests Na 154 BUN 52 Phos 2.3 Pertinent Medications Phos Nak KCl at 75 ml/hr Height 5 ft 2 in Weight 45.359 kg [place] Body Weight (kg) 53.63 BMI 18.3 Weight Status Underweight Subjective/Other Information FU for TF tolerance. Pt with improved creatinine and GFR. Will change TF. Percent of energy/protein needs met: 100%/100% Burn Absent Trauma Absent Current % PO Negligible Minimum of two criteria No physical signs of malnutrition #1 Nutrition Diagnosis Inadequate oral intake Diagnosis Progress(for reassessment Continues documentation) Is patient on ventilator? Yes Is Patient Ambulatory and/or Out of Bed No REE-([facility]-confined to bed) [phone] Calculation Used for Recommendations [facility] Additional Notes Protein: (1.2-2g/kg) 54-91g Fluid: 1 ml/kcal or per MD Nutrition Intervention Change Diet Order: Change TF Nutrition Support: Glucerna 1.2 at 45 ml/hr Flush 300 ml q4h for hypernatermia. Once resolved, flush 75 ml q4h. Kcal 1,296 Protein (gm) 65 Fluid (mL) 869 Goal #1 Meet at least 75% of protein and energy needs via TF Anticipated Discharge Needs: Unable to determine at this time Follow-Up By: 06/02/21 Additional Comments FU for TF start and tolerance
[2021-05-31] MEDS ORDERED: POTASSIUM CHLORIDE 20 MEQ PACKET FEEDTUBE ONE (19:56)
[2021-06-01] MEDS: PHOS-NAK POWDER PACKET PO SCH (01:31)
--- NOTE | 2021-06-01 05:07 | XRay Report ---
. XR chest 1V ap INDICATION / CLINICAL INFORMATION: follow up respiratory failure. COMPARISON: Radiograph from yesterday. FINDINGS: SUPPORT DEVICES: Unchanged. HEART /PULMONARY VASCULATURE: Unchanged. LUNGS / PLEURA: No new or increasing airspace consolidation. No sizable pleural effusion. No pneumoth orax. IMPRESSION: 1. No significant interval change. Signer Name: Curtis Amezcua MD Signed: 06/01/2021 5:03 AM Workstation Name: [id number]
--- NOTE | 2021-06-01 08:51 | Progress Note ---
Assessment and Plan 1. Acute kidney injury: Vasomotor SIXTO in the volume depletion / dehydration. CT abdomen negative for hydro. Creatinine level was normal in 2019. Monitor renal function. Creatinine level is improving. Non-oliguric. Avoid nephrotoxic agents. Meds dosage based on GFR. 2. FEN: Hypernatremia, monitor. Sodium level is improving, continue IV D5W and water flushes, adjust accordingly. Follow Sodium level. Metabolic acidosis, monitor. Lactic acidosis. Monitor lytes. 3. Acute respiratory failure with hypoxia: 2/2 PNA. Intubated, on vent. 4. Pneumonia, POA: Covid test negative. Abx. Follow cultures. 5. Elevated Troponin: Monitor. 6. Hypertension: Monitor BP. Meds as appropriate. 7. Acute metabolic Encephalopathy, POA: Monitor. Prognosis guarded. Subjective: Patient was seen and examined at the bedside. No labs so far. Spoke with manager costing. Examination: General appearance: well-developed, thin built, appears stated age, intubated, on vent HEENT: ATNC, pupils equal Neck: supple Respiratory: coarse breath sounds Cardiology: regular, S1S2, no murmur Gastrointestinal: soft, bowel sounds heard, not tender Integumentary: no rash, warm and dry Neurologic: not responding Ext: no edema : Cast catheter Subjective Date of service: 06/01/21 Objective - Vital Signs Vital signs: Vital Signs - 12hr 05/31/21 05/31/21 05/31/21 21:00 21:30 22:00 Temperature Pulse Rate 82 83 87 Pulse Rate [ From Monitor] Respiratory 24 28 H 22 Rate Blood Pressure 125/61 113/53 118/59 O2 Sat by Pulse 100 98 100 Oximetry 05/31/21 05/31/21 05/31/21 22:08 22:30 23:00 Temperature Pulse Rate 86 85 88 Pulse Rate [ From Monitor] Respiratory 26 H 25 H 29 H Rate Blood Pressure 118/59 126/61 110/54 O2 Sat by Pulse 100 99 96 Oximetry 05/31/21 06/01/21 06/01/21 23:30 00:00 00:08 Temperature 99.3 F Pulse Rate 94 H 88 87 Pulse Rate [ 88 From Monitor] Respiratory 28 H 28 H Rate Blood Pressure 113/59 118/55 118/55 O2 Sat by Pulse 98 97 97 Oximetry 06/01/21 06/01/2121 00:30 01:00 01:30 Temperature Pulse Rate 93 H 92 H 90 Pulse Rate [ From Monitor] Respiratory 28 H 20 24 Rate Blood Pressure 129/59 130/52 116/55 O2 Sat by Pulse 94 100 99 Oximetry 06/01/21 06/01/21 06/01/21 02:00 02:30 03:00 Temperature Pulse Rate 86 89 92 H Pulse Rate [ From Monitor] Respiratory 27 H 27 H 32 H Rate Blood Pressure 117/52 124/56 132/60 O2 Sat by Pulse 100 98 100 Oximetry 06/01/21 06/01/21 06/01/21 03:26 03:30 04:00 Temperature Pulse Rate 92 H 84 Pulse Rate [ From Monitor] Respiratory 28 H 27 H Rate Blood Pressure 104/52 106/54 O2 Sat by Pulse 97 99 99 Oximetry 06/01/21 06/01/21 06/01/21 04:15 04:20 04:27 Temperature Pulse Rate 82 87 82 Pulse Rate [ From Monitor] Respiratory Rate Blood Pressure 123/59 O2 Sat by Pulse 100 97 97 Oximetry 06/01/21 06/01/21 06/01/21 04:30 05:00 05:30 Temperature Pulse Rate 83 85 90 Pulse Rate [ From Monitor] Respiratory 30 H 29 H 30 H Rate Blood Pressure 124/60 124/61 132/64 O2 Sat by Pulse 100 100 100 Oximetry 06/01/21 06/01/21 06/01/21 06:00 06:30 06:35 Temperature Pulse Rate 91 H 86 87 Pulse Rate [ From Monitor] Respiratory 28 H 25 H Rate Blood Pressure 136/61 128/56 O2 Sat by Pulse 98 99 97 Oximetry 06/01/21 06/01/21 06/01/21 07:00 07:30 07:56 Temperature 97.9 F Pulse Rate 85 89 Pulse Rate [ From Monitor] Respiratory 27 H 26 H Rate Blood Pressure 119/62 121/58 O2 Sat by Pulse 100 98 Oximetry 06/01/21 06/01/21 06/01/21 08:00 08:14 08:25 Temperature Pulse Rate 87 89 Pulse Rate [ 88 From Monitor] Respiratory 30 H 30 H Rate Blood Pressure 127/60 128/63 O2 Sat by Pulse 96 99 97 Oximetry 06/01/21 08:30 Temperature Pulse Rate 87 Pulse Rate [ From Monitor] Respiratory 25 H Rate Blood Pressure 122/68 O2 Sat by Pulse 100 Oximetry - Lab 05/27/21 02:00 05/31/21 15:23 Most recent lab results ABG pH 7.555 (7.320-7.450) H 06/01/21 04:00 ABG O2 Saturation 94.5 (0-100) 06/01/21 04:00 Calcium 7.0 mg/dL (8.4-10.2) L 05/31/21 15:23 Phosphorus 2.30 mg/dL (2.5-4.5) L 05/31/21 04:33 Magnesium 1.90 mg/dL (1.7-2.3) 05/30/21 04:33 Urine Creatinine 51.6 mg/dL (0.1-20.0) H 05/26/21 Unknown Urine Sodium 96 mmol/L 05/26/21 Unknown Medications & Allergies - Medications Allergies/Adverse Reactions: Allergies No Known Allergies Allergy (Verified 05/29/21 18:46) Home Medications: Home Medications Medication Instructions Recorded Confirmed Last Taken Type No Known Home Medications [No 05/26/21 05/26/21 Unknown History Reported Home Medications] Active Medications: Generic Name Dose Route Start Last Admin Trade Name Freq PRN Reason Stop Dose Admin Acetaminophen 650 mg 05/30/21 08:30 05/30/21 09:33 Acetaminophen 325 Mg/10.15 Ml Oral Liqd Unit Dose FEEDTUBE 650 mg Q6H PRN Administration Pain 1 -3, fever >100.5 Albuterol 2.5 mg 05/26/21 18:34 Albuterol 2.5 Mg/3 Ml Nebu IH Q3HRT PRN Shortness Of Breath Amlodipine Besylate 10 mg 05/29/21 12:00 05/31/21 10:50 Amlodipine 10 Mg Tab PO 10 mg QDAY ONDINA Administration Lipase/Protease/Amylase 1 each 05/28/21 08:24 Lipase 10,500/Protease 25,000/Amylase 43,750 (Units) Dr De Leon FEEDTUBE PRN PRN For Clogged Feeding Tube Ascorbic Acid 500 mg 05/26/21 22:00 05/31/21 21:15 Ascorbic Acid 500 Mg Tab PO 500 mg BID ONDINA Administration Cholecalciferol 1,000 unit 05/27/21 10:00 05/31/21 10:48 Cholecalciferol (Vit D3) 1000 Unit (25 Mcg) Tab PO 1,000 unit QDAY ONDINA Administration Famotidine 20 mg 05/28/21 10:00 05/31/21 10:48 Famotidine 20 Mg Tab PO 20 mg DAILY ONDINA Administration Heparin Sodium (Porcine) 5,000 unit 05/26/21 22:00 05/31/21 21:15 Heparin 5,000 Unit/1 Ml Vial SUB-Q 5,000 unit Q12HR ONDINA Administration Hydrophilic Ointment 1 applic 05/26/21 17:02 Lip Therapy Vaseline TP Q2HR PRN Dry Lips Propofol 1,000 mg in 100 mls @ 1.361 mls/hr 05/30/21 06:00 05/31/21 08:50 Diprivan 10 Mg/Ml IV 0 mcg/kg/min TITR ONDINA 0 mls/hr Titration Protocol 5 MCG/KG/MIN Vancomycin HCl 750 mg/ Sodium 265 mls @ 166.667 mls/hr 05/31/21 10:00 05/31/21 12:27 Chloride IV 06/01/21 11:36 Infused Q24H ONDINA Infusion Ceftriaxone Sodium 2 gm in 100 mls @ 200 mls/hr 05/31/21 10:00 05/31/21 11:21 Rocephin/Ns 2 Gm/100 Ml IV 06/02/21 10:29 Infused Q24H ONDINA Infusion Protocol Dextrose 1,000 mls @ 75 mls/hr 05/31/21 13:00 06/01/21 04:24 D5w IV 75 mls/hr DIRECT ONDINA Administration Multi-Ingred Cream/Lotion/Oil/Oint 1 applic 05/26/21 17:02 Mineral Oil/Petrolatum, White Ophth Oint 3.5 Gm OU Q4HR PRN Dry Eye(s) Senna/Docusate Sodium 1 tab 05/26/21 22:00 05/31/21 21:15 Sennosides/Docusate Sodium 8.6/50 Mg Tab FEEDTUBE 1 tab BID ONDINA Administration Simple Syrup 15 ml 05/28/21 08:24 Simple Syrup 15 Ml FEEDTUBE PRN PRN Hypoglycemia Simple Syrup 30 ml 05/28/21 08:24 Simple Syrup 15 Ml FEEDTUBE PRN PRN Hypoglycemia Sodium Bicarbonate 325 mg 05/28/21 08:24 Sodium Bicarbonate 325 Mg Tab FEEDTUBE PRN PRN For Clogged Feeding Tube Sodium Chloride 10 ml 05/26/21 22:00 05/31/21 21:16 Sodium Chloride 0.9% 10 Ml Flush Syringe IV 10 ml BID ONDINA Administration Sodium Chloride 10 ml 05/26/21 18:34 Sodium Chloride 0.9% 10 Ml Flush Syringe IV PRN PRN LINE FLUSH Tamsulosin HCl 0.8 mg 05/29/21 12:00 05/31/21 10:49 Tamsulosin 0.4 Mg Cap PO 0.8 mg QDAY ONDINA Administration Zinc Sulfate 220 mg 05/26/21 22:00 05/31/21 21:15 Zinc Sulfate 220 Mg Cap PO 220 mg BID ONDINA Administration
[2021-06-01] MEDS: FAMOTIDINE 20 MG TAB PO SCH (10:15)
[2021-06-01] MEDS: TAMSULOSIN 0.4 MG CAP PO SCH (10:15)
[2021-06-01] MEDS: SENNOSIDES/DOCUSATE SODIUM 8.6/50 MG TAB FEEDTUBE SCH ×2 (10:15→22:08)
[2021-06-01] MEDS: HEPARIN 5,000 UNIT/1 ML VIAL SUB-Q SCH ×2 (10:16→22:07)
[2021-06-01] MEDS: ZINC SULFATE 220 MG CAP PO SCH ×2 (10:16→22:09)
[2021-06-01] MEDS: CHOLECALCIFEROL (VIT D3) 1000 UNIT (25 mcg) TAB PO SCH (10:16)
[2021-06-01] MEDS: ASCORBIC ACID 500 MG TAB PO SCH ×2 (10:16→22:09)
[2021-06-01 10:22] LABS: Hematocrit 37.9 % (35.5-45.6); Hemoglobin 12.3 gm/dl (11.8-15.2); Mean Corpuscular HGB Conc 33 % (32-34); Mean Corpuscular Volume 84 fl (84-94); Red Blood Count 4.52 M/mm3 (3.65-5.03); Red Cell Distribution Width 14.7 % (13.2-15.2)
[2021-06-01] MEDS: amLODIPine 10 MG TAB PO SCH (10:26)
[2021-06-01 10:27] LABS: Platelet Count 105 K/mm3 (140-440)
[2021-06-01] MEDS: VANCOMYCIN 750 MG in SODIUM CHLORIDE 0.9% 250ML 250 ML IV SCH (10:28)
[2021-06-01] MEDS: cefTRIAXone/NS 2 GM/100 ML 2 GM/100 ML BAG IV SCH (10:29)
[2021-06-01 10:35] LABS: BUN/Creatinine Ratio 38; Blood Urea Nitrogen 30 mg/dL (9-20); Calcium 7.1 mg/dL (8.4-10.2); Hemolysis Index 48
--- NOTE | 2021-06-01 11:53 | Progress Note ---
Assessment and Plan Acute hypoxemic respiratory failure on MVS Bilateral pneumonia (CAP) Acute toxic metabolic encephalopathy Severe sepsis Acute kidney injury ypertensive urgency Elevated serum D-dimer Adult failure to thrive Mild metabolic acidosis Hyperchloremia Lactic acidosis Elevated serum inflammatory markers to include ferritin, D-dimers, and LDH PUI COVID-19 infection - continue free water supplementation re: hypernatremia - PO4 & Mg replaced - reduce set rate to 12/min - begin SBT's in am - Azotemia per nephrology - continue care as below otherwise; - continue to wean supplemental oxygen for target O2 sat's > 90% acutely - VAP bundle addressed - continue lung protective strategies - continue Daily SAT and SBT assessment as tolerated - continue bronchodilators with pulmonary hygiene per RT - wean per pulmonary driven protocols otherwise - continue accuchecks with glycemic control per SSI (While critically ill target blood glucose of 140-180 mg/dL; avoid hypoglycemia) - sedation prn for target RASS 0 to -1 - avoid nephrotoxins, renally dose all medications - continue to avoid benzodiazepine's, reduce the possibility of delirium - complete AB's per ID rec's - prn analgesia per CPOT score - Maintenance of sleep-wake cycle, avoid delirium - continue enteral nutritional support at goal rate as tolerated - G.I. & VTE prophylaxis - PT/OT/ROM exercises - continue mobility protocols for pressure ulcer prophylaxis - Monitor hemodynamics closely - continue other care per attending / other consultants - discharge planning ongoing concurrently COVID SPECIFIC INTERVENTIONS - COVID-19 PCR negative .... Re-evaluate in am & prn CONDITION: CRITICAL PROGNOSIS: GUARDED CODE STATUS: FULL CODE The high probability of a clinically significant, sudden or life-threatening deterioration of the [respiratory, cardiovascular, renal & neurologic] system(s) required my full and direct attention, intervention and personal management. The aggregate critical care time was [35] minutes without overlap. Time includes spent on; [x] Data Review and interpretation [x] Patient assessment and monitoring of vital signs [x] Documentation [x] Medication orders and management Subjective Date of service: 06/01/21 Principal diagnosis: Ac. hypoxemic resp failure; CAP; Ac. encephalopathy; SIXTO; Sepsis; PUI COVID Interval history: Patient is seen today for: Ac. hypoxemic resp failure; CAP; Acute encephalopathy; SIXTO; Severe sepsis; PUI COVID-19 infection Seen and examined at bedside; 24hour events reviewed; nursing and respiratory care staff consulted; no adverse overnight events reported to me; resting in bed; remains on MVS; still with major electrolyte derangements but Mg & PO4 corrected and hypernatremia is improving; AMS is persistent Objective Vital Signs - 12hr 06/01/21 06/01/21 06/01/21 00:00 00:08 00:30 Temperature 99.3 F Pulse Rate 88 87 93 H Pulse Rate [ 88 From Monitor] Respiratory 28 H 28 H Rate Blood Pressure 118/55 118/55 129/59 O2 Sat by Pulse 97 97 94 Oximetry 06/01/21 06/01/21 06/01/21 01:00 01:30 02:00 Temperature Pulse Rate 92 H 90 86 Pulse Rate [ From Monitor] Respiratory 20 24 27 H Rate Blood Pressure 130/52 116/55 117/52 O2 Sat by Pulse 100 99 100 Oximetry 06/01/21 06/01/21 06/01/21 02:30 03:00 03:26 Temperature Pulse Rate 89 92 H Pulse Rate [ From Monitor] Respiratory 27 H 32 H Rate Blood Pressure 124/56 132/60 O2 Sat by Pulse 98 100 97 Oximetry 06/01/21 06/01/21 06/01/21 03:30 04:00 04:15 Temperature Pulse Rate 92 H 84 82 Pulse Rate [ From Monitor] Respiratory 28 H 27 H Rate Blood Pressure 104/52 106/54 123/59 O2 Sat by Pulse 99 99 100 Oximetry 06/01/21 06/01/21 06/01/21 04:20 04:27 04:30 Temperature Pulse Rate 87 82 83 Pulse Rate [ From Monitor] Respiratory 30 H Rate Blood Pressure 124/60 O2 Sat by Pulse 97 97 100 Oximetry 06/01/21 06/01/21 06/01/21 05:00 05:30 06:00 Temperature Pulse Rate 85 90 91 H Pulse Rate [ From Monitor] Respiratory 29 H 30 H 28 H Rate Blood Pressure 124/61 132/64 136/61 O2 Sat by Pulse 100 100 98 Oximetry 06/01/21 06/01/21 06/01/21 06:30 06:35 07:00 Temperature Pulse Rate 86 87 85 Pulse Rate [ From Monitor] Respiratory 25 H 27 H Rate Blood Pressure 128/56 119/62 O2 Sat by Pulse 99 97 100 Oximetry 06/01/21 06/01/21 06/01/21 07:30 07:56 07:57 Temperature 97.9 F Pulse Rate 89 84 Pulse Rate [ From Monitor] Respiratory 26 H Rate Blood Pressure 121/58 O2 Sat by Pulse 98 Oximetry 06/01/21 06/01/21 06/01/21 08:00 08:14 08:25 Temperature Pulse Rate 87 89 Pulse Rate [ 88 From Monitor] Respiratory 30 H 30 H Rate Blood Pressure 127/60 128/63 O2 Sat by Pulse 96 99 97 Oximetry 06/01/21 06/01/21 06/01/21 08:30 09:00 09:30 Temperature Pulse Rate 87 93 H 100 H Pulse Rate [ From Monitor] Respiratory 25 H 31 H 32 H Rate Blood Pressure 122/68 135/71 133/71 O2 Sat by Pulse 100 99 98 Oximetry 06/01/21 06/01/21 06/01/21 10:00 10:26 10:30 Temperature Pulse Rate 105 H 105 H 106 H Pulse Rate [ From Monitor] Respiratory 31 H 32 H Rate Blood Pressure 135/70 143/69 144/74 O2 Sat by Pulse 100 100 Oximetry 06/01/21 11:00 Temperature Pulse Rate 106 H Pulse Rate [ From Monitor] Respiratory 35 H Rate Blood Pressure 137/67 O2 Sat by Pulse 94 Oximetry Constitutional: no acute distress, other (orally intuabted to MVS, no dys- synchrony, ETT (7.5) 23 cm at the lip) Eyes: non-icteric ENT: oropharynx moist Neck: supple, no lymphadenopathy, no JVD Effort: mildly labored Ascultation: Bilateral: diminished breath sounds Percussion: Bilateral: not dull Cardiovascular: regular rate and rhythm, other (S1,S2) Gastrointestinal: normoactive bowel sounds, soft, non-tender, other (Cast in place) Integumentary: normal Extremities: no cyanosis, no edema, pulses normal, no ischemia or petechiae Neurologic: pupils equal and round, other (encephalopathic) Psychiatric: other (unable to assess) CBC and BMP: 06/02/21 09:50 06/02/21 05:24 ABG, PT/INR, D-dimer: ABG ABG pH 7.555 (7.320-7.450) H 06/01/21 04:00 POC ABG pCO2 27.6 mmHg (32.0-48.0) L 06/01/21 04:00 POC ABG pO2 65.6 mmHg (83-108) L 06/01/21 04:00 POC ABG HCO3 23.9 06/01/21 04:00 ABG O2 Saturation 94.5 (0-100) 06/01/21 04:00 PT/INR, D-dimer D-Dimer 8255.81 ng/mlDDU (0-234) H 05/26/21 17:08 Abnormal lab findings: Abnormal Labs 05/26/21 05/26/21 05/26/21 17:08 17:08 17:08 WBC Hgb MCH MCHC 31 L RDW 16.2 H Plt Count 80 L Seg Neuts % (Manual) Lymphocytes % (Manual) Seg Neutrophils # Man Lymphocytes # (Manual) Monocytes # (Manual) APTT 42.4 H D-Dimer 8255.81 H ABG pH POC ABG pCO2 POC ABG pO2 ABG Hemoglobin ABG Oxyhemoglobin ABG Sodium ABG Chloride ABG Glucose Carboxyhemoglobin Sodium 180 H* Potassium Chloride 140 H Carbon Dioxide 21 L BUN 118 H Creatinine 5.4 H Glucose 133 H POC Glucose Lactic Acid Calcium 8.1 L Phosphorus Magnesium Ferritin AST 97 H ALT 71 H Alkaline Phosphatase 138 H Lactate Dehydrogenase 550 H Troponin T 0.038 H C-Reactive Protein 4.20 H Albumin 3.3 L Triglycerides 150 H HDL Cholesterol 24 L Arterial Blood Glucose Arterial Blood Ionized Calcium Urine WBC (Auto) Urine Creatinine Salicylates Acetaminophen 05/26/21 05/26/21 05/26/21 17:08 17:08 17:08 WBC Hgb MCH MCHC RDW Plt Count Seg Neuts % (Manual) Lymphocytes % (Manual) Seg Neutrophils # Man Lymphocytes # (Manual) Monocytes # (Manual) APTT D-Dimer ABG pH POC ABG pCO2 POC ABG pO2 ABG Hemoglobin ABG Oxyhemoglobin ABG Sodium ABG Chloride ABG Glucose Carboxyhemoglobin Sodium Potassium Chloride Carbon Dioxide BUN Creatinine Glucose POC Glucose Lactic Acid 3.90 H* Calcium Phosphorus Magnesium Ferritin 598.3 H AST ALT Alkaline Phosphatase Lactate Dehydrogenase Troponin T C-Reactive Protein Albumin Triglycerides HDL Cholesterol Arterial Blood Glucose Arterial Blood Ionized Calcium Urine WBC (Auto) Urine Creatinine Salicylates Acetaminophen < 5.0 L 05/26/21 05/26/21 05/26/21 17:08 17:27 23:28 WBC Hgb MCH MCHC RDW Plt Count Seg Neuts % (Manual) Lymphocytes % (Manual) Seg Neutrophils # Man Lymphocytes # (Manual) Monocytes # (Manual) APTT D-Dimer ABG pH POC ABG pCO2 POC ABG pO2 453.5 H ABG Hemoglobin 11.5 L ABG Oxyhemoglobin 98.7 H ABG Sodium 198.2 H ABG Chloride ABG Glucose 116 H Carboxyhemoglobin 0.3 L Sodium Potassium Chloride Carbon Dioxide BUN Creatinine Glucose POC Glucose 182 H Lactic Acid Calcium Phosphorus Magnesium Ferritin AST ALT Alkaline Phosphatase Lactate Dehydrogenase Troponin T C-Reactive Protein Albumin Triglycerides HDL Cholesterol Arterial Blood Glucose 116 H Arterial Blood Ionized Calcium Urine WBC (Auto) Urine Creatinine Salicylates < 0.3 L Acetaminophen 05/26/21 05/26/21 05/27/21 Unknown Unknown 01:58 WBC Hgb MCH MCHC RDW Plt Count Seg Neuts % (Manual) Lymphocytes % (Manual) Seg Neutrophils # Man Lymphocytes # (Manual) Monocytes # (Manual) APTT D-Dimer ABG pH POC ABG pCO2 POC ABG pO2 ABG Hemoglobin ABG Oxyhemoglobin ABG Sodium ABG Chloride ABG Glucose Carboxyhemoglobin Sodium Potassium Chloride Carbon Dioxide BUN Creatinine Glucose POC Glucose Lactic Acid 2.90 H* Calcium Phosphorus Magnesium Ferritin AST ALT Alkaline Phosphatase Lactate Dehydrogenase Troponin T C-Reactive Protein Albumin Triglycerides HDL Cholesterol Arterial Blood Glucose Arterial Blood Ionized Calcium Urine WBC (Auto) 16.0 H Urine Creatinine 51.6 H Salicylates Acetaminophen 05/27/21 05/27/21 05/27/21 02:00 02:00 03:19 WBC 27.1 H Hgb 11.1 L MCH 27 L MCHC 31 L RDW 16.1 H Plt Count 62 L Seg Neuts % (Manual) 93.0 H Lymphocytes % (Manual) 3.0 L Seg Neutrophils # Man 25.2 H Lymphocytes # (Manual) 0.8 L Monocytes # (Manual) 1.1 H APTT D-Dimer ABG pH POC ABG pCO2 31.7 L POC ABG pO2 79.5 L ABG Hemoglobin 10.9 L ABG Oxyhemoglobin ABG Sodium 181.4 H ABG Chloride ABG Glucose 276 H Carboxyhemoglobin 0.1 L Sodium 180 H* Potassium Chloride 140 H Carbon Dioxide 19 L BUN 100 H Creatinine 4.3 H Glucose 272 H POC Glucose Lactic Acid Calcium 7.0 L Phosphorus 5.00 H Magnesium Ferritin AST 66 H ALT 64 H Alkaline Phosphatase Lactate Dehydrogenase Troponin T C-Reactive Protein Albumin 2.9 L Triglycerides HDL Cholesterol Arterial Blood Glucose 276 H Arterial Blood Ionized Calcium 4.1 L Urine WBC (Auto) Urine Creatinine Salicylates Acetaminophen 05/27/21 05/27/21 05/27/21 08:22 08:22 12:08 WBC Hgb MCH MCHC RDW Plt Count Seg Neuts % (Manual) Lymphocytes % (Manual) Seg Neutrophils # Man Lymphocytes # (Manual) Monocytes # (Manual) APTT D-Dimer ABG pH POC ABG pCO2 POC ABG pO2 ABG Hemoglobin ABG Oxyhemoglobin ABG Sodium ABG Chloride ABG Glucose Carboxyhemoglobin Sodium 179 H* Potassium Chloride > 139 H Carbon Dioxide 21 L 19 L BUN 103 H 105 H Creatinine 4.2 H 4.2 H Glucose 271 H 217 H POC Glucose Lactic Acid 2.20 H* Calcium 7.3 L 7.0 L Phosphorus Magnesium Ferritin AST ALT Alkaline Phosphatase Lactate Dehydrogenase Troponin T C-Reactive Protein Albumin Triglycerides HDL Cholesterol Arterial Blood Glucose Arterial Blood Ionized Calcium Urine WBC (Auto) Urine Creatinine Salicylates Acetaminophen 05/27/21 05/27/21 05/27/21 12:14 18:03 23:15 WBC Hgb MCH MCHC RDW Plt Count Seg Neuts % (Manual) Lymphocytes % (Manual) Seg Neutrophils # Man Lymphocytes # (Manual) Monocytes # (Manual) APTT D-Dimer ABG pH POC ABG pCO2 POC ABG pO2 ABG Hemoglobin ABG Oxyhemoglobin ABG Sodium ABG Chloride ABG Glucose Carboxyhemoglobin Sodium Potassium Chloride Carbon Dioxide BUN Creatinine Glucose POC Glucose 184 H 183 H 191 H Lactic Acid Calcium Phosphorus Magnesium Ferritin AST ALT Alkaline Phosphatase Lactate Dehydrogenase Troponin T C-Reactive Protein Albumin Triglycerides HDL Cholesterol Arterial Blood Glucose Arterial Blood Ionized Calcium Urine WBC (Auto) Urine Creatinine Salicylates Acetaminophen 05/28/21 05/28/21 05/28/21 03:19 05:15 08:47 WBC Hgb MCH MCHC RDW Plt Count Seg Neuts % (Manual) Lymphocytes % (Manual) Seg Neutrophils # Man Lymphocytes # (Manual) Monocytes # (Manual) APTT D-Dimer ABG pH POC ABG pCO2 29.6 L POC ABG pO2 115.2 H ABG Hemoglobin 10.2 L ABG Oxyhemoglobin ABG Sodium 153.6 H ABG Chloride 129.0 H ABG Glucose 215 H Carboxyhemoglobin 0.3 L Sodium 159 H D Potassium Chloride 123.7 H Carbon Dioxide 20 L BUN 88 H Creatinine 2.9 H Glucose 177 H POC Glucose 184 H Lactic Acid Calcium 6.3 L Phosphorus Magnesium Ferritin AST ALT Alkaline Phosphatase Lactate Dehydrogenase Troponin T C-Reactive Protein Albumin Triglycerides HDL Cholesterol Arterial Blood Glucose 215 H Arterial Blood Ionized Calcium 3.7 L Urine WBC (Auto) Urine Creatinine Salicylates Acetaminophen 05/28/21 05/28/21 05/28/21 11:50 16:27 17:23 WBC Hgb MCH MCHC RDW Plt Count Seg Neuts % (Manual) Lymphocytes % (Manual) Seg Neutrophils # Man Lymphocytes # (Manual) Monocytes # (Manual) APTT D-Dimer ABG pH POC ABG pCO2 POC ABG pO2 ABG Hemoglobin ABG Oxyhemoglobin ABG Sodium ABG Chloride ABG Glucose Carboxyhemoglobin Sodium 154 H Potassium Chloride Carbon Dioxide BUN Creatinine Glucose POC Glucose 130 H 113 H Lactic Acid Calcium Phosphorus Magnesium Ferritin AST ALT Alkaline Phosphatase Lactate Dehydrogenase Troponin T C-Reactive Protein Albumin Triglycerides HDL Cholesterol Arterial Blood Glucose Arterial Blood Ionized Calcium Urine WBC (Auto) Urine Creatinine Salicylates Acetaminophen 05/28/21 05/29/21 05/29/21 23:28 02:59 04:15 WBC Hgb MCH MCHC RDW Plt Count Seg Neuts % (Manual) Lymphocytes % (Manual) Seg Neutrophils # Man Lymphocytes # (Manual) Monocytes # (Manual) APTT D-Dimer ABG pH 7.481 H POC ABG pCO2 24.6 L POC ABG pO2 ABG Hemoglobin 10.6 L ABG Oxyhemoglobin ABG Sodium 149.5 H ABG Chloride 122.0 H ABG Glucose 129 H Carboxyhemoglobin 0.3 L Sodium 159 H Potassium Chloride 124.0 H Carbon Dioxide 21 L BUN 88 H Creatinine 2.4 H Glucose 136 H POC Glucose 139 H Lactic Acid Calcium 6.8 L Phosphorus Magnesium Ferritin AST ALT Alkaline Phosphatase Lactate Dehydrogenase Troponin T C-Reactive Protein Albumin Triglycerides HDL Cholesterol Arterial Blood Glucose 129 H Arterial Blood Ionized Calcium 3.8 L Urine WBC (Auto) Urine Creatinine Salicylates Acetaminophen 05/29/21 05/29/21 05/29/21 05:13 15:35 18:05 WBC Hgb MCH MCHC RDW Plt Count Seg Neuts % (Manual) Lymphocytes % (Manual) Seg Neutrophils # Man Lymphocytes # (Manual) Monocytes # (Manual) APTT D-Dimer ABG pH POC ABG pCO2 POC ABG pO2 ABG Hemoglobin ABG Oxyhemoglobin ABG Sodium ABG Chloride ABG Glucose Carboxyhemoglobin Sodium 160 H Potassium Chloride 124.8 H Carbon Dioxide 20 L BUN 83 H Creatinine 1.9 H Glucose 147 H POC Glucose 138 H 141 H Lactic Acid Calcium 7.1 L Phosphorus Magnesium Ferritin AST ALT Alkaline Phosphatase Lactate Dehydrogenase Troponin T C-Reactive Protein Albumin Triglycerides HDL Cholesterol Arterial Blood Glucose Arterial Blood Ionized Calcium Urine WBC (Auto) Urine Creatinine Salicylates Acetaminophen 05/29/21 05/30/21 05/30/21 23:22 01:20 04:33 WBC Hgb MCH MCHC RDW Plt Count Seg Neuts % (Manual) Lymphocytes % (Manual) Seg Neutrophils # Man Lymphocytes # (Manual) Monocytes # (Manual) APTT D-Dimer ABG pH 7.484 H POC ABG pCO2 24.6 L POC ABG pO2 131.2 H ABG Hemoglobin 11.7 L ABG Oxyhemoglobin 98.1 H ABG Sodium 155.7 H ABG Chloride 126.0 H ABG Glucose 191 H Carboxyhemoglobin 0.1 L Sodium 162 H* Potassium Chloride 129.0 H Carbon Dioxide 19 L BUN 89 H Creatinine 2.1 H Glucose 190 H POC Glucose 160 H Lactic Acid Calcium 7.4 L Phosphorus Magnesium Ferritin AST ALT Alkaline Phosphatase Lactate Dehydrogenase Troponin T C-Reactive Protein Albumin Triglycerides HDL Cholesterol Arterial Blood Glucose 191 H Arterial Blood Ionized Calcium 4.1 L Urine WBC (Auto) Urine Creatinine Salicylates Acetaminophen 05/30/21 05/30/21 05/30/21 05:21 15:25 17:59 WBC Hgb MCH MCHC RDW Plt Count Seg Neuts % (Manual) Lymphocytes % (Manual) Seg Neutrophils # Man Lymphocytes # (Manual) Monocytes # (Manual) APTT D-Dimer ABG pH POC ABG pCO2 POC ABG pO2 ABG Hemoglobin ABG Oxyhemoglobin ABG Sodium ABG Chloride ABG Glucose Carboxyhemoglobin Sodium 161 H* Potassium 3.4 L Chloride 131.7 H Carbon Dioxide 18 L BUN 77 H Creatinine 1.5 H Glucose 200 H POC Glucose 169 H 147 H Lactic Acid Calcium 7.2 L Phosphorus Magnesium Ferritin AST ALT Alkaline Phosphatase Lactate Dehydrogenase Troponin T C-Reactive Protein Albumin Triglycerides HDL Cholesterol Arterial Blood Glucose Arterial Blood Ionized Calcium Urine WBC (Auto) Urine Creatinine Salicylates Acetaminophen 05/30/21 05/31/21 05/31/21 23:34 04:33 05:29 WBC Hgb MCH MCHC RDW Plt Count Seg Neuts % (Manual) Lymphocytes % (Manual) Seg Neutrophils # Man Lymphocytes # (Manual) Monocytes # (Manual) APTT D-Dimer ABG pH POC ABG pCO2 POC ABG pO2 ABG Hemoglobin ABG Oxyhemoglobin ABG Sodium ABG Chloride ABG Glucose Carboxyhemoglobin Sodium 154 H Potassium Chloride 123.6 H Carbon Dioxide 19 L BUN 52 H Creatinine Glucose 139 H POC Glucose 153 H 132 H Lactic Acid Calcium 7.1 L Phosphorus 2.30 L Magnesium Ferritin AST ALT Alkaline Phosphatase Lactate Dehydrogenase Troponin T C-Reactive Protein Albumin Triglycerides HDL Cholesterol Arterial Blood Glucose Arterial Blood Ionized Calcium Urine WBC (Auto) Urine Creatinine Salicylates Acetaminophen 05/31/21 05/31/21 05/31/21 11:47 15:23 17:18 WBC Hgb MCH MCHC RDW Plt Count Seg Neuts % (Manual) Lymphocytes % (Manual) Seg Neutrophils # Man Lymphocytes # (Manual) Monocytes # (Manual) APTT D-Dimer ABG pH POC ABG pCO2 POC ABG pO2 ABG Hemoglobin ABG Oxyhemoglobin ABG Sodium ABG Chloride ABG Glucose Carboxyhemoglobin Sodium 149 H Potassium 3.4 L D Chloride 117.7 H Carbon Dioxide 21 L BUN 40 H Creatinine Glucose 139 H POC Glucose 114 H 108 H Lactic Acid Calcium 7.0 L Phosphorus Magnesium Ferritin AST ALT Alkaline Phosphatase Lactate Dehydrogenase Troponin T C-Reactive Protein Albumin Triglycerides HDL Cholesterol Arterial Blood Glucose Arterial Blood Ionized Calcium Urine WBC (Auto) Urine Creatinine Salicylates Acetaminophen 05/31/21 06/01/21 06/01/21 23:13 04:00 05:50 WBC Hgb MCH MCHC RDW Plt Count Seg Neuts % (Manual) Lymphocytes % (Manual) Seg Neutrophils # Man Lymphocytes # (Manual) Monocytes # (Manual) APTT D-Dimer ABG pH 7.555 H POC ABG pCO2 27.6 L POC ABG pO2 65.6 L ABG Hemoglobin 9.2 L ABG Oxyhemoglobin ABG Sodium ABG Chloride 111.0 H ABG Glucose 143 H Carboxyhemoglobin 0.1 L Sodium Potassium Chloride Carbon Dioxide BUN Creatinine Glucose POC Glucose 126 H 121 H Lactic Acid Calcium Phosphorus Magnesium Ferritin AST ALT Alkaline Phosphatase Lactate Dehydrogenase Troponin T C-Reactive Protein Albumin Triglycerides HDL Cholesterol Arterial Blood Glucose 143 H Arterial Blood Ionized Calcium 3.7 L Urine WBC (Auto) Urine Creatinine Salicylates Acetaminophen 06/01/21 06/01/21 06/01/21 10:10 10:10 11:35 WBC 17.6 H Hgb MCH 27 L MCHC RDW Plt Count 105 L Seg Neuts % (Manual) Lymphocytes % (Manual) Seg Neutrophils # Man Lymphocytes # (Manual) Monocytes # (Manual) APTT D-Dimer ABG pH POC ABG pCO2 POC ABG pO2 ABG Hemoglobin ABG Oxyhemoglobin ABG Sodium ABG Chloride ABG Glucose Carboxyhemoglobin Sodium Potassium 3.5 L Chloride Carbon Dioxide BUN 30 H Creatinine Glucose 137 H POC Glucose 112 H Lactic Acid Calcium 7.1 L Phosphorus 1.80 L D Magnesium 1.40 L Ferritin AST ALT Alkaline Phosphatase Lactate Dehydrogenase Troponin T C-Reactive Protein Albumin Triglycerides HDL Cholesterol Arterial Blood Glucose Arterial Blood Ionized Calcium Urine WBC (Auto) Urine Creatinine Salicylates Acetaminophen Chest x-ray: image reviewed (no focal new infiltrate; tubes & lines in good position) Allied health notes reviewed: nursing
--- NOTE | 2021-06-01 12:31 | Progress Note ---
<MARIOBHUMIKA CharanJamaal - Last Filed: 06/01/21 18:32> Assessment and Plan Assessment and plan: This 81-year-old male with hypertension and dementia admitted with acute hypoxic respiratory failure suspected, COVID-19 PUI, pneumonia, hypernatremia, volume depletion, urinary tract infection, toxic metabolic encephalopathy, SIXTO, sepsis Neuro: Acute metabolic encephalopathy -Aspiration/seizure precautions -Sedated with propofol while on mechanical ventilation, off for SBT -05/26 CT head shows no focal mass, hemorrhage, hydrocephalus or acute or large territorial infarct, mild to moderate mucosal thickening in the ethmoid with prior mastoidectomy noted on the right, vascular disease seen in the anterior and posterior circulation, moderate diffuse cerebral atrophy with anterior temporal lobe atrophy being the greatest, moderate to marked degree of hippocampal atrophy suggested bilaterally, suggestion of encephalomalacia in the inferior temporal lobe on the right as well as anterior temporal lobe with question prior branch infarct or trauma CV: ?Hypertension, ? CAD, Elevated troponin -No recorded home medications -Amlodipine -Hydralazine as needed -Blood pressure monitoring per protocol -05/26 CT chest/abdomen/pelvis without contrast showed faint bilateral patchy pulmonary opacities suggestive of infectious process such as pneumonia, dense atherosclerotic application of the thoracic aorta distribution of the coronary vessels, scattered patchy ill-defined densities within the mid and lower lung zone, mild prominence of both ureters, dense atherosclerotic calcification along the abdominal aorta without evidence of aneurysm Respiratory -Need to follow-up with PCP -Possibly NSTEMI in setting of SIXTO -Trend CE Respiratory: Acute hypoxemic respiratory failure -On mechanical ventilation -Wean mechanical ventilation as tolerated -VAP bundle -ABGs as needed -CXR daily for 7 days per protocol -Daily SBT FEN/GI: Acute kidney injury/ATN, Protein calorie malnutrition, Hypophosphatemia, Hypokalemia, Hypomagnesemia -Presented with BUN/creatinine of 118/5.4 -Nephrology consulted, appreciate recommendations -Strict intake and output -Daily weights -Nephrotoxic medications -Renally dose medications -On tube feedings -SSI, Accu-Cheks every 6 -Nutrition consulted, patient recommendations -Replete K,phos, mag -Trend BMP : Urinary Retention -White placed for urinary retention -Flomax ID/Heme: Sepsis, UTI, Bilateral PNA, Leukocytosis, Thrombocytopenia (improving) -Presented with with tachycardia, febrile to 102.8 degrees Fahrenheit, acute hypoxic respiratory failure, acute kidney injury, pneumonia on imaging, pyuria -abx therapy -05/26 CT chest showed faint bilateral patchy pulmonary opacities suggestive of infectious process that is pneumonia -05/26 blood cultures x2 no growth after 5 days -05/26 sputum culture grew E. coli, Staph aureus (pansensitive) -05/26 urine culture with no growth after 48 hours -05/26 UA with pyuria -05/26 urine culture with no growth to date -05/31 blood cultures x2 in progress -abx therapy -Pulmonary hygiene -Avoid chemical anticoagulation -Trend CBC DVT/GI prophylaxis: Hold chemical anticoagulation in setting of thrombocytopenia, SCDs to bilateral LE while in bed, PPI Disposition: ICU Lines: white, Mariaelena The high probability of a clinically significant, sudden or life threatening deterioration of the [respiratory, renal and electrolyte] system(s) required my full and direct attention, intervention and personal management. The aggregate critical care time was [33] minutes. This time is in addition to time spent performing reported procedures but includes the following: [x] Data Review and interpretation [x] Patient assessment and monitoring of vital signs [x] Documentation [x] Medication orders and management History Interval history: This 81-year-old male with hypertension and dementia who presents to [facility] ER on 05/26 with decreased responsiveness since 05/25 per family. Patient was placed on nasopharyngeal airway and bagged by EMS on route to [facility]. Upon arrival to emergency indices 05/27/2021. Patient with severe hypernatremia secondary to dehydration/vasomotor nephropathy. Continue IV fluid hydration per nephrology recommendations. Patient with a creatinine September 2019 of 0.7. On this admission patient was noted to have a creatinine of 5.4. Slightly improved today to 4.2. Etiology secondary to vasomotor nephropathy/acute kidney injury/volume depletion/dehydration. Follow-up urine studies. CT scan of the abdomen pelvis did not reveal any obstruction. CT chest revealed bilateral pulmonary opacities. Patient with elevated D-dimer that may be secondary to Covid coagulopathy. Consider VQ scan. Unable to perform CTA given renal insufficiency. Await pulmonary consultation 05/28/2021. Hyponatremia has improved to 159. Continue IV fluid hydration per nephrology recommendations. Creatinine has also improved to 2.9. No obstruction per CT scan. COVID-19 testing negative on 05/27/2021. Continue IV antibiotics for bilateral pneumonia and UTI. Follow-up blood and urine cultures . Consider ID consultation patient remains on mechanical ventilation but undergoing PSV trials. Patient currently with PSV with FiO2 of 30% PEEP of 6 and pressure support of 10. Continue vent weaning per pulmonary. 05/29/2021. Hypernatremia persists with sodium improving to 154 yesterday evening but now back to 159. Creatinine has improved to 2.4. Nephrology following.Continue current antibiotics for pneumonia and UTI. Consider CTA of chest for elevated D-dimer when creatinine back to baseline. Patient currently on AC mode ventilation rate of 16, tidal volume 450, FiO2 30% and PEEP of 6. 05/30/2021. Sodium remains elevated at 162 and creatinine elevated at 2.1. Continue free water with 300 mL every 4 hours. Nephrology held IV D5W. Resume IV fluids per nephrology recommendations. CT scan of the abdomen negative for hydronephrosis. Continue IV antibiotics. Patient remains on mechanical ventilation AC mode rate of 20, tidal volume 450, FiO2 40% and a PEEP of 6. 05/31: Patient has hypernatremia improved to 149, this a.m. patient was noted to have a potassium of 4.5 and potassium and his D5 was discontinued and changed to D5W. This evening he was noted the patient had a potassium of 3.4 which was repleted. Patient was started to have hypophosphatemia today which was repleted. Antibiotics were escalated to's ceftriaxone for pansensitive E. coli patient received 7 days of therapy so repeat blood cultures were ordered. 06/01: CPAP trial yesterday lasted from 9am-5pm, will retry CPAP today. Replace Dominguez Scott K, DC IVF in setting of improved Na Hospitalist Physical - Constitutional Vitals: Temp Pulse Resp BP Pulse Ox 99.2 F 90 25 H 127/62 100 06/01/21 12:00 06/01/21 12:00 06/01/21 12:00 06/01/21 12:00 06/01/21 12:00 General appearance: Present: no acute distress - EENT Eyes: Present: PERRL ENT: no thrush, no ulcerations - Neck Neck: Present: normal ROM - Respiratory Respiratory effort: normal Respiratory: bilateral: diminished - Cardiovascular Rhythm: regular Heart Sounds: Present: S1 & S2. Absent: systolic murmur, diastolic murmur - Extremities Extremities: no ischemia, pulses intact, pulses symmetrical Peripheral Pulses: within normal limits - Abdominal General gastrointestinal: soft, non-tender, non-distended, normal bowel sounds - Integumentary Integumentary: Present: warm, dry - Psychiatric Psychiatric: other (sedated) - Neurologic Neurologic: moves all extremities - Allied Health Allied health notes reviewed: nursing, RT, social work HEART Score - HEART Score Troponin: Troponin T 0.038 ng/mL (0.00-0.029) H 05/26/21 17:08 Results - Labs CBC & Chem 7: 06/01/21 10:10 06/01/21 10:10 Labs: Laboratory Last Values WBC 17.6 K/mm3 (4.5-11.0) H 06/01/21 10:10 RBC 4.52 M/mm3 (3.65-5.03) 06/01/21 10:10 Hgb 12.3 gm/dl (11.8-15.2) 06/01/21 10:10 Hct 37.9 % (35.5-45.6) 06/01/21 10:10 MCV 84 fl (84-94) 06/01/21 10:10 MCH 27 pg (28-32) L 06/01/21 10:10 MCHC 33 % (32-34) 06/01/21 10:10 RDW 14.7 % (13.2-15.2) 06/01/21 10:10 Plt Count 105 K/mm3 (140-440) L 06/01/21 10:10 Lymph % (Auto) 30.3 % (13.4-35.0) 05/26/21 17:08 [place] % (Auto) 6.1 % (0.0-7.3) 05/26/21 17:08 Eos % (Auto) 1.0 % (0.0-4.3) 05/26/21 17:08 Baso % (Auto) 0.5 % (0.0-1.8) 05/26/21 17:08 Lymph # (Auto) 3.0 K/mm3 (1.2-5.4) 05/26/21 17:08 [place] # (Auto) 0.6 K/mm3 (0.0-0.8) 05/26/21 17:08 Eos # (Auto) 0.1 K/mm3 (0.0-0.4) 05/26/21 17:08 Baso # (Auto) 0.1 K/mm3 (0.0-0.1) 05/26/21 17:08 Add Manual Diff Complete 05/27/21 02:00 Total Counted 100 05/27/21 02:00 Seg Neutrophils % String Cutter 05/27/21 02:00 Seg Neuts % (Manual) 93.0 % (40.0-70.0) H 05/27/21 02:00 Lymphocytes % (Manual) 3.0 % (13.4-35.0) L 05/27/21 02:00 Monocytes % (Manual) 4.0 % (0.0-7.3) 05/27/21 02:00 Nucleated RBC % Not Reportable 05/27/21 02:00 Seg Neutrophils # 6.1 K/mm3 (1.8-7.7) 05/26/21 17:08 Seg Neutrophils # Man 25.2 K/mm3 (1.8-7.7) H 05/27/21 02:00 Band Neutrophils # 0.0 K/mm3 05/27/21 02:00 Lymphocytes # (Manual) 0.8 K/mm3 (1.2-5.4) L 05/27/21 02:00 Abs React Lymphs (Man) 0.0 K/mm3 05/27/21 02:00 Monocytes # (Manual) 1.1 K/mm3 (0.0-0.8) H 05/27/21 02:00 Eosinophils # (Manual) 0.0 K/mm3 (0.0-0.4) 05/27/21 02:00 Basophils # (Manual) 0.0 K/mm3 (0.0-0.1) 05/27/21 02:00 Metamyelocytes # 0.0 K/mm3 05/27/21 02:00 Myelocytes # 0.0 K/mm3 05/27/21 02:00 Promyelocytes # 0.0 K/mm3 05/27/21 02:00 Blast Cells # 0.0 K/mm3 05/27/21 02:00 WBC Morphology Not Reportable 05/27/21 02:00 Hypersegmented Neuts Not Reportable 05/27/21 02:00 Hyposegmented Neuts Not Reportable 05/27/21 02:00 Hypogranular Neuts Not Reportable 05/27/21 02:00 Smudge Cells Not Reportable 05/27/21 02:00 Toxic Granulation Not Reportable 05/27/21 02:00 Toxic Vacuolation Not Reportable 05/27/21 02:00 Dohle Bodies Not Reportable 05/27/21 02:00 Pelger-Huet Anomaly Not Reportable 05/27/21 02:00 Danile Rods Not Reportable 05/27/21 02:00 Platelet Estimate Not Reportable 05/27/21 02:00 Clumped Platelets Not Reportable 05/27/21 02:00 Plt Clumps, EDTA Not Reportable 05/27/21 02:00 Large Platelets Not Reportable 05/27/21 02:00 Giant Platelets Not Reportable 05/27/21 02:00 Platelet Satelliting Not Reportable 05/27/21 02:00 Plt Morphology Comment Not Reportable 05/27/21 02:00 RBC Morphology Normal 05/27/21 02:00 Dimorphic RBCs Not Reportable 05/27/21 02:00 Polychromasia Not Reportable 05/27/21 02:00 Hypochromasia Not Reportable 05/27/21 02:00 Poikilocytosis Not Reportable 05/27/21 02:00 Anisocytosis Not Reportable 05/27/21 02:00 Microcytosis Not Reportable 05/27/21 02:00 Macrocytosis Not Reportable 05/27/21 02:00 Spherocytes Not Reportable 05/27/21 02:00 Pappenheimer Bodies Not Reportable 05/27/21 02:00 Sickle Cells Not Reportable 05/27/21 02:00 Target Cells Not Reportable 05/27/21 02:00 Tear Drop Cells Not Reportable 05/27/21 02:00 Ovalocytes Not Reportable 05/27/21 02:00 Helmet Cells Not Reportable 05/27/21 02:00 [place] Bodies Not Reportable 05/27/21 02:00 Carpenter Rings Not Reportable 05/27/21 02:00 Bernard Cells Not Reportable 05/27/21 02:00 Bite Cells Not Reportable 05/27/21 02:00 Crenated Cell Not Reportable 05/27/21 02:00 Elliptocytes Not Reportable 05/27/21 02:00 Acanthocytes (Spur) Not Reportable 05/27/21 02:00 Rouleaux Not Reportable 05/27/21 02:00 Hemoglobin C Crystals Not Reportable 05/27/21 02:00 Schistocytes Not Reportable 05/27/21 02:00 Malaria parasites Not Reportable 05/27/21 02:00 Arik Bodies Not Reportable 05/27/21 02:00 Hem Pathologist Commnt No 05/27/21 02:00 APTT 42.4 Sec. (24.2-36.6) H 05/26/21 17:08 D-Dimer 8255.81 ng/mlDDU (0-234) H 05/26/21 17:08 ABG pH 7.555 (7.320-7.450) H 06/01/21 04:00 POC ABG pCO2 27.6 mmHg (32.0-48.0) L 06/01/21 04:00 POC ABG pO2 65.6 mmHg (83-108) L 06/01/21 04:00 POC ABG HCO3 23.9 06/01/21 04:00 ABG O2 Saturation 94.5 (0-100) 06/01/21 04:00 POC ABG Base Excess 2.0 06/01/21 04:00 ABG Hemoglobin 9.2 (12.0-17.5) L 06/01/21 04:00 ABG Oxyhemoglobin 94.1 (94-98) 06/01/21 04:00 ABG Methemoglobin 0.3 (0.0-1.5) 06/01/21 04:00 ABG Sodium 137.4 mmol/L (136.0-145.0) 06/01/21 04:00 ABG Potassium 3.5 mmol/L (3.40-4.50) 06/01/21 04:00 ABG Chloride 111.0 mmol/L (98-107) H 06/01/21 04:00 ABG Glucose 143 mg/dL (65-95) H 06/01/21 04:00 Carboxyhemoglobin 0.1 (0.5-1.5) L 06/01/21 04:00 FiO2 % 40.0 06/01/21 04:00 Sodium 142 mmol/L (137-145) 06/01/21 10:10 Potassium 3.5 mmol/L (3.6-5.0) L 06/01/21 10:10 Chloride 106.7 mmol/L (98-107) 06/01/21 10:10 Carbon Dioxide 24 mmol/L (22-30) 06/01/21 10:10 Anion Gap 15 mmol/L 06/01/21 10:10 BUN 30 mg/dL (9-20) H 06/01/21 10:10 Creatinine 0.8 mg/dL (0.8-1.3) 06/01/21 10:10 Estimated GFR > 60 ml/min 06/01/21 10:10 BUN/Creatinine Ratio 38 % 06/01/21 10:10 Glucose 137 mg/dL (75-100) H 06/01/21 10:10 POC Glucose 112 mg/dL (70-105) H 06/01/21 11:35 Lactic Acid 1.60 mmol/L (0.7-2.0) 05/27/21 12:08 Calcium 7.1 mg/dL (8.4-10.2) L 06/01/21 10:10 Phosphorus 1.80 mg/dL (2.5-4.5) L D 06/01/21 10:10 Magnesium 1.40 mg/dL (1.7-2.3) L 06/01/21 10:10 Ferritin 598.3 ng/mL (30.0-300.0) H 05/26/21 17:08 Total Bilirubin 0.50 mg/dL (0.1-1.2) 05/27/21 02:00 AST 66 units/L (5-40) H 05/27/21 02:00 ALT 64 units/L (7-56) H 05/27/21 02:00 Alkaline Phosphatase 126 units/L (35-129) 05/27/21 02:00 Ammonia 46.0 umol/L (25-60) 05/26/21 17:08 Lactate Dehydrogenase 550 units/L (91-180) H 05/26/21 17:08 Troponin T 0.038 ng/mL (0.00-0.029) H 05/26/21 17:08 C-Reactive Protein 4.20 mg/dL (0.00-1.30) H 05/26/21 17:08 Total Protein 6.6 g/dL (6.3-8.2) 05/27/21 02:00 Albumin 2.9 g/dL (3.9-5) L 05/27/21 02:00 Albumin/Globulin Ratio 0.8 % 05/27/21 02:00 Triglycerides 150 mg/dL (2-149) H 05/26/21 17:08 Cholesterol 145 mg/dL (50-199) 05/26/21 17:08 LDL Cholesterol Direct 84 mg/dL (50-130) 05/26/21 17:08 HDL Cholesterol 24 mg/dL (40-59) L 05/26/21 17:08 Cholesterol/HDL Ratio 6.04 % 05/26/21 17:08 Procalcitonin 0.29 ng/mL (<0.15) 05/26/21 17:08 TSH 0.342 mlU/mL (0.270-4.200) 05/26/21 17:08 Arterial Blood Glucose 143 mg/dL (65-95) H 06/01/21 04:00 Arterial Blood Ionized Calcium 3.7 mg/dL (4.6-5.3) L 06/01/21 04:00 Urine Color Yellow (Yellow) 05/26/21 Unknown Urine Turbidity Clear (Clear) 05/26/21 Unknown Urine pH 5.0 (5.0-7.0) 05/26/21 Unknown Ur Specific [place] 1.011 (1.003-1.030) 05/26/21 Unknown Urine Protein <15 mg/dl mg/dL (Negative) 05/26/21 Unknown Urine Glucose (UA) Neg mg/dL (Negative) 05/26/21 Unknown Urine Ketones Neg mg/dL (Negative) 05/26/21 Unknown Urine Blood Sm (Negative) 05/26/21 Unknown Urine Nitrite Neg (Negative) 05/26/21 Unknown Urine Bilirubin Neg (Negative) 05/26/21 Unknown Urine Urobilinogen < 2.0 mg/dL (<2.0) 05/26/21 Unknown Ur Leukocyte Esterase Neg (Negative) 05/26/21 Unknown Urine WBC (Auto) 16.0 /HPF (0.0-6.0) H 05/26/21 Unknown Urine RBC (Auto) 2.0 /HPF (0.0-6.0) 05/26/21 Unknown Urine Bacteria (Auto) 1+ /HPF (Negative) 05/26/21 Unknown Urine Osmolality 392 Mosm/kg 05/26/21 Unknown Urine Creatinine 51.6 mg/dL (0.1-20.0) H 05/26/21 Unknown Urine Sodium 96 mmol/L 05/26/21 Unknown Random Vancomycin 14.8 ug/mL (0-40.0) 05/30/21 08:29 Salicylates < 0.3 mg/dL (2.8-20.0) L 05/26/21 17:08 Acetaminophen < 5.0 ug/mL (10.0-30.0) L 05/26/21 17:08 Coronavirus (PCR) Negative (Negative) 05/27/21 Unknown Blood Type O POSITIVE 05/26/21 17:00 Antibody Screen Negative 05/26/21 17:00 Microbiology: Microbiology 05/26/21 17:05 Peripheral/Venous Blood Culture - Final NO GROWTH AFTER 5 DAYS 05/31/21 15:23 Peripheral/Venous Blood Culture - Preliminary Culture in Progress 05/31/21 15:23 Peripheral/Venous Blood Culture - Preliminary Culture in Progress White/IV: Voiding Method Indwelling Catheter Active Medications - Current Medications Current Medications: Generic Name Dose Route Start Last Admin Trade Name Freq PRN Reason Stop Dose Admin Acetaminophen 650 mg 05/30/21 08:30 05/30/21 09:33 Acetaminophen 325 Mg/10.15 Ml Oral Liqd Unit Dose FEEDTUBE 650 mg Q6H PRN Administration Pain 1 -3, fever >100.5 Albuterol 2.5 mg 05/26/21 18:34 Albuterol 2.5 Mg/3 Ml Nebu IH Q3HRT PRN Shortness Of Breath Amlodipine Besylate 10 mg 05/29/21 12:00 06/01/21 10:26 Amlodipine 10 Mg Tab PO 10 mg QDAY ONDINA Administration Lipase/Protease/Amylase 1 each 05/28/21 08:24 Lipase 10,500/Protease 25,000/Amylase 43,750 (Units) Dr De Leon FEEDTUBE PRN PRN For Clogged Feeding Tube Ascorbic Acid 500 mg 05/26/21 22:00 06/01/21 10:16 Ascorbic Acid 500 Mg Tab PO 500 mg BID ONDINA Administration Cholecalciferol 1,000 unit 05/27/21 10:00 06/01/21 10:16 Cholecalciferol (Vit D3) 1000 Unit (25 Mcg) Tab PO 1,000 unit QDAY ONDINA Administration Famotidine 20 mg 05/28/21 10:00 06/01/21 10:15 Famotidine 20 Mg Tab PO 20 mg DAILY ONDINA Administration Heparin Sodium (Porcine) 5,000 unit 05/26/21 22:00 06/01/21 10:16 Heparin 5,000 Unit/1 Ml Vial SUB-Q 5,000 unit Q12HR ONDINA Administration Hydrophilic Ointment 1 applic 05/26/21 17:02 Lip Therapy Vaseline TP Q2HR PRN Dry Lips Propofol 1,000 mg in 100 mls @ 1.361 mls/hr 05/30/21 06:00 05/31/21 08:50 Diprivan 10 Mg/Ml IV 0 mcg/kg/min TITR ONDINA 0 mls/hr Titration Protocol 5 MCG/KG/MIN Ceftriaxone Sodium 2 gm in 100 mls @ 200 mls/hr 05/31/21 10:00 06/01/21 11:05 Rocephin/Ns 2 Gm/100 Ml IV 06/02/21 10:29 Infused Q24H ONDINA Infusion Protocol Magnesium Sulfate 4 gm in 100 mls @ 25 mls/hr 06/01/21 13:00 Magnesium Sulfate 4gm/100ml IV 06/01/21 16:59 ONCE ONE Potassium Phosphate 30 mmol/ 510 mls @ 85 mls/hr 06/01/21 12:45 Sodium Chloride IV 06/01/21 18:44 ONCE ONE Multi-Ingred Cream/Lotion/Oil/Oint 1 applic 05/26/21 17:02 Mineral Oil/Petrolatum, White Ophth Oint 3.5 Gm OU Q4HR PRN Dry Eye(s) Senna/Docusate Sodium 1 tab 05/26/21 22:00 06/01/21 10:15 Sennosides/Docusate Sodium 8.6/50 Mg Tab FEEDTUBE 1 tab BID ONDINA Administration Simple Syrup 15 ml 05/28/21 08:24 Simple Syrup 15 Ml FEEDTUBE PRN PRN Hypoglycemia Simple Syrup 30 ml 05/28/21 08:24 Simple Syrup 15 Ml FEEDTUBE PRN PRN Hypoglycemia Sodium Bicarbonate 325 mg 05/28/21 08:24 Sodium Bicarbonate 325 Mg Tab FEEDTUBE PRN PRN For Clogged Feeding Tube Sodium Chloride 10 ml 05/26/21 22:00 06/01/21 10:29 Sodium Chloride 0.9% 10 Ml Flush Syringe IV 10 ml BID ONDINA Administration Sodium Chloride 10 ml 05/26/21 18:34 Sodium Chloride 0.9% 10 Ml Flush Syringe IV PRN PRN LINE FLUSH Tamsulosin HCl 0.8 mg 05/29/21 12:00 06/01/21 10:15 Tamsulosin 0.4 Mg Cap PO 0.8 mg QDAY ONDINA Administration Zinc Sulfate 220 mg 05/26/21 22:00 06/01/21 10:16 Zinc Sulfate 220 Mg Cap PO 220 mg BID ONDINA Administration Nutrition/Malnutrition Assess - Dietary Evaluation Nutrition/Malnutrition Findings: Nutrition Notes Start: 05/27/21 08:35 Freq: Status: Active Protocol: Document 05/31/21 12:05 (Rec: 05/31/21 12:13 [id number]) Nutrition Notes Initial or Follow up Reassessment Current Diagnosis Acute Kidney Injury,Sepsis, Hypertension,Respiratory Failure Other Pertinent Diagnosis UTI, encephalopathy, dehydration, COVID PUI Current Diet Nepro 1.8 at 30 ml/hr Labs/Tests Na 154 BUN 52 Phos 2.3 Pertinent Medications Phos Nak KCl at 75 ml/hr Height 5 ft 2 in Weight 45.359 kg [place] Body Weight (kg) 53.63 BMI 18.3 Weight Status Underweight Subjective/Other Information FU for TF tolerance. Pt with improved creatinine and GFR. Will change TF. Percent of energy/protein needs met: 100%/100% Burn Absent Trauma Absent Current % PO Negligible Minimum of two criteria No physical signs of malnutrition #1 Nutrition Diagnosis Inadequate oral intake Diagnosis Progress(for reassessment Continues documentation) Is patient on ventilator? Yes Is Patient Ambulatory and/or Out of Bed No REE-([place] Jeor-confined to bed) 1258.548 Calculation Used for Recommendations [place] Jeor Additional Notes Protein: (1.2-2g/kg) 54-91g Fluid: 1 ml/kcal or per Nutrition Intervention Change Diet Order: Change TF Nutrition Support: Glucerna 1.2 at 45 ml/hr Flush 300 ml q4h for hypernatermia. Once resolved, flush 75 ml q4h. Kcal 1,296 Protein (gm) 65 Fluid (mL) 869 Goal #1 Meet at least 75% of protein and energy needs via TF Anticipated Discharge Needs: Unable to determine at this time Follow-Up By: 06/02/21 Additional Comments FU for TF start and tolerance <JASWINDER LEDEZMA - Last Filed: 06/02/21 15:18> Assessment and Plan Assessment and plan: Agree with assessment and plan as outlined by nurse practitioner as above, patient seen and examined, patient remains unresponsive, on antibiotics, intubated. No family at the bedside. Continue care as outlined above. Hospitalist Physical - Constitutional Vitals: Temp Pulse Resp BP Pulse Ox 100.2 F H 96 H 34 H 130/61 100 06/02/21 12:00 06/02/21 13:00 06/02/21 13:00 06/02/21 13:00 06/02/21 13:00 HEART Score - HEART Score Troponin: Troponin T 0.038 ng/mL (0.00-0.029) H 05/26/21 17:08 Results - Labs CBC & Chem 7: 06/02/21 09:50 06/02/21 05:24 Labs: Laboratory Last Values WBC 17.1 K/mm3 (4.5-11.0) H 06/02/21 09:50 RBC 3.14 M/mm3 (3.65-5.03) L 06/02/21 09:50 Hgb 8.5 gm/dl (11.8-15.2) L D 06/02/21 09:50 Hct 25.6 % (35.5-45.6) L D 06/02/21 09:50 MCV 82 fl (84-94) L 06/02/21 09:50 MCH 27 pg (28-32) L 06/02/21 09:50 MCHC 33 % (32-34) 06/02/21 09:50 RDW 14.4 % (13.2-15.2) 06/02/21 09:50 Plt Count 124 K/mm3 (140-440) L 06/02/21 09:50 Lymph % (Auto) 30.3 % (13.4-35.0) 05/26/21 17:08 [place] % (Auto) 6.1 % (0.0-7.3) 05/26/21 17:08 Eos % (Auto) 1.0 % (0.0-4.3) 05/26/21 17:08 Baso % (Auto) 0.5 % (0.0-1.8) 05/26/21 17:08 Lymph # (Auto) 3.0 K/mm3 (1.2-5.4) 05/26/21 17:08 [place] # (Auto) 0.6 K/mm3 (0.0-0.8) 05/26/21 17:08 Eos # (Auto) 0.1 K/mm3 (0.0-0.4) 05/26/21 17:08 Baso # (Auto) 0.1 K/mm3 (0.0-0.1) 05/26/21 17:08 Add Manual Diff Complete 05/27/21 02:00 Total Counted 100 05/27/21 02:00 Seg Neutrophils % String Cutter 05/27/21 02:00 Seg Neuts % (Manual) 93.0 % (40.0-70.0) H 05/27/21 02:00 Lymphocytes % (Manual) 3.0 % (13.4-35.0) L 05/27/21 02:00 Monocytes % (Manual) 4.0 % (0.0-7.3) 05/27/21 02:00 Nucleated RBC % Not Reportable 05/27/21 02:00 Seg Neutrophils # 6.1 K/mm3 (1.8-7.7) 05/26/21 17:08 Seg Neutrophils # Man 25.2 K/mm3 (1.8-7.7) H 05/27/21 02:00 Band Neutrophils # 0.0 K/mm3 05/27/21 02:00 Lymphocytes # (Manual) 0.8 K/mm3 (1.2-5.4) L 05/27/21 02:00 Abs React Lymphs (Man) 0.0 K/mm3 05/27/21 02:00 Monocytes # (Manual) 1.1 K/mm3 (0.0-0.8) H 05/27/21 02:00 Eosinophils # (Manual) 0.0 K/mm3 (0.0-0.4) 05/27/21 02:00 Basophils # (Manual) 0.0 K/mm3 (0.0-0.1) 05/27/21 02:00 Metamyelocytes # 0.0 K/mm3 05/27/21 02:00 Myelocytes # 0.0 K/mm3 05/27/21 02:00 Promyelocytes # 0.0 K/mm3 05/27/21 02:00 Blast Cells # 0.0 K/mm3 05/27/21 02:00 WBC Morphology Not Reportable 05/27/21 02:00 Hypersegmented Neuts Not Reportable 05/27/21 02:00 Hyposegmented Neuts Not Reportable 05/27/21 02:00 Hypogranular Neuts Not Reportable 05/27/21 02:00 Smudge Cells Not Reportable 05/27/21 02:00 Toxic Granulation Not Reportable 05/27/21 02:00 Toxic Vacuolation Not Reportable 05/27/21 02:00 Dohle Bodies Not Reportable 05/27/21 02:00 Pelger-Huet Anomaly Not Reportable 05/27/21 02:00 Daniel Rods Not Reportable 05/27/21 02:00 Platelet Estimate Not Reportable 05/27/21 02:00 Clumped Platelets Not Reportable 05/27/21 02:00 Plt Clumps, EDTA Not Reportable 05/27/21 02:00 Large Platelets Not Reportable 05/27/21 02:00 Giant Platelets Not Reportable 05/27/21 02:00 Platelet Satelliting Not Reportable 05/27/21 02:00 Plt Morphology Comment Not Reportable 05/27/21 02:00 RBC Morphology Normal 05/27/21 02:00 Dimorphic RBCs Not Reportable 05/27/21 02:00 Polychromasia Not Reportable 05/27/21 02:00 Hypochromasia Not Reportable 05/27/21 02:00 Poikilocytosis Not Reportable 05/27/21 02:00 Anisocytosis Not Reportable 05/27/21 02:00 Microcytosis Not Reportable 05/27/21 02:00 Macrocytosis Not Reportable 05/27/21 02:00 Spherocytes Not Reportable 05/27/21 02:00 Pappenheimer Bodies Not Reportable 05/27/21 02:00 Sickle Cells Not Reportable 05/27/21 02:00 Target Cells Not Reportable 05/27/21 02:00 Tear Drop Cells Not Reportable 05/27/21 02:00 Ovalocytes Not Reportable 05/27/21 02:00 Helmet Cells Not Reportable 05/27/21 02:00 [place] Bodies Not Reportable 05/27/21 02:00 [place] Rings Not Reportable 05/27/21 02:00 [place] Cells Not Reportable 05/27/21 02:00 Bite Cells Not Reportable 05/27/21 02:00 Crenated Cell Not Reportable 05/27/21 02:00 Elliptocytes Not Reportable 05/27/21 02:00 Acanthocytes (Spur) Not Reportable 05/27/21 02:00 Rouleaux Not Reportable 05/27/21 02:00 Hemoglobin C Crystals Not Reportable 05/27/21 02:00 Schistocytes Not Reportable 05/27/21 02:00 Malaria parasites Not Reportable 05/27/21 02:00 Arik Bodies Not Reportable 05/27/21 02:00 Hem Pathologist Commnt No 05/27/21 02:00 APTT 42.4 Sec. (24.2-36.6) H 05/26/21 17:08 D-Dimer 8255.81 ng/mlDDU (0-234) H 05/26/21 17:08 ABG pH 7.555 (7.320-7.450) H 06/01/21 04:00 POC ABG pCO2 27.6 mmHg (32.0-48.0) L 06/01/21 04:00 POC ABG pO2 65.6 mmHg (83-108) L 06/01/21 04:00 POC ABG HCO3 23.9 06/01/21 04:00 ABG O2 Saturation 94.5 (0-100) 06/01/21 04:00 POC ABG Base Excess 2.0 06/01/21 04:00 ABG Hemoglobin 9.2 (12.0-17.5) L 06/01/21 04:00 ABG Oxyhemoglobin 94.1 (94-98) 06/01/21 04:00 ABG Methemoglobin 0.3 (0.0-1.5) 06/01/21 04:00 ABG Sodium 137.4 mmol/L (136.0-145.0) 06/01/21 04:00 ABG Potassium 3.5 mmol/L (3.40-4.50) 06/01/21 04:00 ABG Chloride 111.0 mmol/L (98-107) H 06/01/21 04:00 ABG Glucose 143 mg/dL (65-95) H 06/01/21 04:00 Carboxyhemoglobin 0.1 (0.5-1.5) L 06/01/21 04:00 FiO2 % 40.0 06/01/21 04:00 Sodium 142 mmol/L (137-145) 06/02/21 05:24 Potassium 3.7 mmol/L (3.6-5.0) 06/02/21 05:24 Chloride 108.1 mmol/L (98-107) H 06/02/21 05:24 Carbon Dioxide 22 mmol/L (22-30) 06/02/21 05:24 Anion Gap 16 mmol/L 06/02/21 05:24 BUN 31 mg/dL (9-20) H 06/02/21 05:24 Creatinine 0.7 mg/dL (0.8-1.3) L 06/02/21 05:24 Estimated GFR > 60 ml/min 06/02/21 05:24 BUN/Creatinine Ratio 44 % 06/02/21 05:24 Glucose 128 mg/dL (75-100) H 06/02/21 05:24 POC Glucose 105 mg/dL (70-105) 06/02/21 11:28 Lactic Acid 1.60 mmol/L (0.7-2.0) 05/27/21 12:08 Calcium 6.1 mg/dL (8.4-10.2) L 06/02/21 05:24 Phosphorus 2.70 mg/dL (2.5-4.5) D 06/02/21 05:24 Magnesium 2.10 mg/dL (1.7-2.3) 06/02/21 05:24 Ferritin 598.3 ng/mL (30.0-300.0) H 05/26/21 17:08 Total Bilirubin 0.50 mg/dL (0.1-1.2) 05/27/21 02:00 AST 66 units/L (5-40) H 05/27/21 02:00 ALT 64 units/L (7-56) H 05/27/21 02:00 Alkaline Phosphatase 126 units/L (35-129) 05/27/21 02:00 Ammonia 46.0 umol/L (25-60) 05/26/21 17:08 Lactate Dehydrogenase 550 units/L (91-180) H 05/26/21 17:08 Troponin T 0.038 ng/mL (0.00-0.029) H 05/26/21 17:08 C-Reactive Protein 4.20 mg/dL (0.00-1.30) H 05/26/21 17:08 Total Protein 6.6 g/dL (6.3-8.2) 05/27/21 02:00 Albumin 2.9 g/dL (3.9-5) L 05/27/21 02:00 Albumin/Globulin Ratio 0.8 % 05/27/21 02:00 Triglycerides 150 mg/dL (2-149) H 05/26/21 17:08 Cholesterol 145 mg/dL (50-199) 05/26/21 17:08 LDL Cholesterol Direct 84 mg/dL (50-130) 05/26/21 17:08 HDL Cholesterol 24 mg/dL (40-59) L 05/26/21 17:08 Cholesterol/HDL Ratio 6.04 % 05/26/21 17:08 Procalcitonin 0.29 ng/mL (<0.15) 05/26/21 17:08 TSH 0.342 mlU/mL (0.270-4.200) 05/26/21 17:08 Arterial Blood Glucose 143 mg/dL (65-95) H 06/01/21 04:00 Arterial Blood Ionized Calcium 3.7 mg/dL (4.6-5.3) L 06/01/21 04:00 Urine Color Yellow (Yellow) 05/26/21 Unknown Urine Turbidity Clear (Clear) 05/26/21 Unknown Urine pH 5.0 (5.0-7.0) 05/26/21 Unknown Ur Specific [place] 1.011 (1.003-1.030) 05/26/21 Unknown Urine Protein <15 mg/dl mg/dL (Negative) 05/26/21 Unknown Urine Glucose (UA) Neg mg/dL (Negative) 05/26/21 Unknown Urine Ketones Neg mg/dL (Negative) 05/26/21 Unknown Urine Blood Sm (Negative) 05/26/21 Unknown Urine Nitrite Neg (Negative) 05/26/21 Unknown Urine Bilirubin Neg (Negative) 05/26/21 Unknown Urine Urobilinogen < 2.0 mg/dL (<2.0) 05/26/21 Unknown Ur Leukocyte Esterase Neg (Negative) 05/26/21 Unknown Urine WBC (Auto) 16.0 /HPF (0.0-6.0) H 05/26/21 Unknown Urine RBC (Auto) 2.0 /HPF (0.0-6.0) 05/26/21 Unknown Urine Bacteria (Auto) 1+ /HPF (Negative) 05/26/21 Unknown Urine Osmolality 392 Mosm/kg 05/26/21 Unknown Urine Creatinine 51.6 mg/dL (0.1-20.0) H 05/26/21 Unknown Urine Sodium 96 mmol/L 05/26/21 Unknown Random Vancomycin 14.8 ug/mL (0-40.0) 05/30/21 08:29 Salicylates < 0.3 mg/dL (2.8-20.0) L 05/26/21 17:08 Acetaminophen < 5.0 ug/mL (10.0-30.0) L 05/26/21 17:08 Coronavirus (PCR) Negative (Negative) 05/27/21 Unknown Blood Type O POSITIVE 05/26/21 17:00 Antibody Screen Negative 05/26/21 17:00 Microbiology: Microbiology 05/31/21 15:23 Peripheral/Venous Blood Culture - Preliminary NO GROWTH AFTER 24 HOURS 05/31/21 15:23 Peripheral/Venous Blood Culture - Preliminary NO GROWTH AFTER 24 HOURS 05/26/21 17:08 Peripheral/Venous Blood Culture - Preliminary Coag Negative Staphylococcus White/IV: Voiding Method Indwelling Catheter Active Medications - Current Medications Current Medications: Generic Name Dose Route Start Last Admin Trade Name Freq PRN Reason Stop Dose Admin Acetaminophen 650 mg 05/30/21 08:30 05/30/21 09:33 Acetaminophen 325 Mg/10.15 Ml Oral Liqd Unit Dose FEEDTUBE 650 mg Q6H PRN Administration Pain 1 -3, fever >100.5 Albuterol 2.5 mg 05/26/21 18:34 Albuterol 2.5 Mg/3 Ml Nebu IH Q3HRT PRN Shortness Of Breath Amlodipine Besylate 10 mg 05/29/21 12:00 06/02/21 09:18 Amlodipine 10 Mg Tab PO 10 mg QDAY ONDINA Administration Lipase/Protease/Amylase 1 each 05/28/21 08:24 Lipase 10,500/Protease 25,000/Amylase 43,750 (Units) Dr De Leon FEEDTUBE PRN PRN For Clogged Feeding Tube Ascorbic Acid 500 mg 05/26/21 22:00 06/02/21 09:18 Ascorbic Acid 500 Mg Tab PO 500 mg BID ONDINA Administration Cholecalciferol 1,000 unit 05/27/21 10:00 06/02/21 09:18 Cholecalciferol (Vit D3) 1000 Unit (25 Mcg) Tab PO 1,000 unit QDAY ONDINA Administration Famotidine 20 mg 05/28/21 10:00 06/02/21 09:17 Famotidine 20 Mg Tab PO 20 mg DAILY ONDINA Administration Heparin Sodium (Porcine) 5,000 unit 05/26/21 22:00 06/02/21 09:37 Heparin 5,000 Unit/1 Ml Vial SUB-Q 5,000 unit Q12HR ONDINA Administration Hydrophilic Ointment 1 applic 05/26/21 17:02 Lip Therapy Vaseline TP Q2HR PRN Dry Lips Propofol 1,000 mg in 100 mls @ 1.361 mls/hr 05/30/21 06:00 05/31/21 08:50 Diprivan 10 Mg/Ml IV 0 mcg/kg/min TITR ONDINA 0 mls/hr Titration Protocol 5 MCG/KG/MIN Multi-Ingred Cream/Lotion/Oil/Oint 1 applic 05/26/21 17:02 Mineral Oil/Petrolatum, White Ophth Oint 3.5 Gm OU Q4HR PRN Dry Eye(s) Senna/Docusate Sodium 1 tab 05/26/21 22:00 06/02/21 09:17 Sennosides/Docusate Sodium 8.6/50 Mg Tab FEEDTUBE 1 tab BID ONDINA Administration Simple Syrup 15 ml 05/28/21 08:24 Simple Syrup 15 Ml FEEDTUBE PRN PRN Hypoglycemia Simple Syrup 30 ml 05/28/21 08:24 Simple Syrup 15 Ml FEEDTUBE PRN PRN Hypoglycemia Sodium Bicarbonate 325 mg 05/28/21 08:24 Sodium Bicarbonate 325 Mg Tab FEEDTUBE PRN PRN For Clogged Feeding Tube Sodium Chloride 10 ml 05/26/21 22:00 06/02/21 09:26 Sodium Chloride 0.9% 10 Ml Flush Syringe IV 10 ml BID ONDINA Administration Sodium Chloride 10 ml 05/26/21 18:34 Sodium Chloride 0.9% 10 Ml Flush Syringe IV PRN PRN LINE FLUSH Tamsulosin HCl 0.8 mg 05/29/21 12:00 06/02/21 09:17 Tamsulosin 0.4 Mg Cap PO 0.8 mg QDAY ONDINA Administration Zinc Sulfate 220 mg 05/26/21 22:00 06/02/21 09:17 Zinc Sulfate 220 Mg Cap PO 220 mg BID ONDINA Administration Nutrition/Malnutrition Assess - Dietary Evaluation Nutrition/Malnutrition Findings: Nutrition Notes Start: 05/27/21 08:35 Freq: Status: Active Protocol: Document 06/02/21 12:34 (Rec: 06/02/21 12:36 [email or web address]) Nutrition Notes Initial or Follow up Reassessment Current Diagnosis Acute Kidney Injury,Sepsis, Hypertension,Respiratory Failure Other Pertinent Diagnosis UTI, encephalopathy, dehydration, COVID PUI Current Diet Glucerna 1.2 at 45 ml/hr Labs/Tests BUN 31 Cr 0.7 Ca 6.1 Pertinent Medications Reviewed Height 5 ft 2 in Weight 45.359 kg [place] Body Weight (kg) 53.63 BMI 18.3 Weight Status Underweight Subjective/Other Information FU for TF tolerance. Observed TF running at goal rate and pt tolerating. Percent of energy/protein needs met: 100%/100% Burn Absent Trauma Absent Current % PO Negligible Minimum of two criteria No physical signs of malnutrition #1 Nutrition Diagnosis Inadequate oral intake Diagnosis Progress(for reassessment Continues documentation) Is patient on ventilator? Yes Is Patient Ambulatory and/or Out of Bed No REE-([facility]-confined to bed) 1258.548 Calculation Used for Recommendations [facility] Additional Notes Protein: (1.2-2g/kg) 54-91g Fluid: 1 ml/kcal or per MD Nutrition Intervention Change Diet Order: Continue Nutrition Support: Glucerna 1.2 at 45 ml/hr Flush 300 ml q4h for hypernatermia. Once resolved, flush 75 ml q4h. Kcal 1,296 Protein (gm) 65 Fluid (mL) 869 Goal #1 Meet at least 75% of protein and energy needs via TF Anticipated Discharge Needs: Unable to determine at this time Follow-Up By: 06/04/21 Additional Comments FU for TF tolerance
[2021-06-01] MEDS ORDERED: POTASSIUM PHOSPHATE 30 MMOL in SODIUM CHLORIDE 0.9% 500 ML 500 ML IV ONE (12:45)
[2021-06-01] MEDS ORDERED: MAGNESIUM SULFATE 4 GM/100 ML BAG IV ONE (13:00)
--- NOTE | 2021-06-02 02:45 | XRay Report ---
XR chest 1V ap INDICATION / CLINICAL INFORMATION: follow up respiratory failure. COMPARISON: Radiograph from yesterday. FINDINGS: SUPPORT DEVICES: Unchanged. HEART /PULMONARY VASCULATURE: Unchanged. LUNGS / PLEURA: Improvement in bibasilar pulmonary opacities. No new or increasing airspace consolida tion. No pneumothorax. IMPRESSION: Improved left basilar pulmonary opacities. Stable lines and tubes. Signer Name: Curtis Amezcua MD Signed: 06/02/2021 2:41 AM Workstation Name: [id number]
[2021-06-02 06:22] LABS: Blood Urea Nitrogen 31 mg/dL (9-20); Calcium 6.1 mg/dL (8.4-10.2); Hemolysis Index 13
[2021-06-02 06:23] LABS: BUN/Creatinine Ratio 44
[2021-06-02] MEDS ORDERED: CALCIUM GLUCONATE 2,000 MG in SODIUM CHLORIDE 0.9% 100 ML IV ONE (08:30)
[2021-06-02] MEDS: TAMSULOSIN 0.4 MG CAP PO SCH (09:17)
[2021-06-02] MEDS: SENNOSIDES/DOCUSATE SODIUM 8.6/50 MG TAB FEEDTUBE SCH ×2 (09:17→21:10)
[2021-06-02] MEDS: FAMOTIDINE 20 MG TAB PO SCH (09:17)
[2021-06-02] MEDS: ZINC SULFATE 220 MG CAP PO SCH ×2 (09:17→21:10)
[2021-06-02] MEDS: CHOLECALCIFEROL (VIT D3) 1000 UNIT (25 mcg) TAB PO SCH (09:18)
[2021-06-02] MEDS: ASCORBIC ACID 500 MG TAB PO SCH ×2 (09:18→21:10)
[2021-06-02] MEDS: cefTRIAXone/NS 2 GM/100 ML 2 GM/100 ML BAG IV SCH (09:18)
[2021-06-02] MEDS: amLODIPine 10 MG TAB PO SCH (09:18)
[2021-06-02] MEDS: HEPARIN 5,000 UNIT/1 ML VIAL SUB-Q SCH ×2 (09:37→21:10)
[2021-06-02 10:10] LABS: Hematocrit 25.6 % (35.5-45.6); Hemoglobin 8.5 gm/dl (11.8-15.2); Mean Corpuscular HGB Conc 33 % (32-34); Mean Corpuscular Volume 82 fl (84-94); Platelet Count 124 K/mm3 (140-440); Red Blood Count 3.14 M/mm3 (3.65-5.03); Red Cell Distribution Width 14.4 % (13.2-15.2)
--- NOTE | 2021-06-02 10:52 | Progress Note ---
Assessment and Plan Acute hypoxemic respiratory failure on MVS Bilateral pneumonia (CAP) Acute toxic metabolic encephalopathy Severe sepsis Acute kidney injury Hypertensive urgency Elevated serum D-dimer Adult failure to thrive Mild metabolic acidosis Hyperchloremia Lactic acidosis Elevated serum inflammatory markers to include ferritin, D-dimers, and LDH PUI COVID-19 infection - get ABG after 2 hours - get neurology evaluation - trial of extubation if no seizures or other major pathology post neurology evaluation - keep set rate at 12/min - continue care as below otherwise; - continue to wean supplemental oxygen for target O2 sat's > 90% acutely - VAP bundle addressed - continue lung protective strategies - continue Daily SAT and SBT assessment as tolerated - continue bronchodilators with pulmonary hygiene per RT - wean per pulmonary driven protocols otherwise - continue accuchecks with glycemic control per SSI (While critically ill target blood glucose of 140-180 mg/dL; avoid hypoglycemia) - sedation prn for target RASS 0 to -1 - avoid nephrotoxins, renally dose all medications - continue to avoid benzodiazepine's, reduce the possibility of delirium - complete AB's per ID rec's - prn analgesia per CPOT score - Maintenance of sleep-wake cycle, avoid delirium - continue enteral nutritional support at goal rate as tolerated - G.I. & VTE prophylaxis - PT/OT/ROM exercises - continue mobility protocols for pressure ulcer prophylaxis - Monitor hemodynamics closely - continue other care per attending / other consultants - discharge planning ongoing concurrently COVID SPECIFIC INTERVENTIONS - COVID-19 PCR negative .... Re-evaluate in am & prn CONDITION: CRITICAL PROGNOSIS: GUARDED CODE STATUS: FULL CODE The high probability of a clinically significant, sudden or life-threatening deterioration of the [respiratory, cardiovascular, renal & neurologic] system(s) required my full and direct attention, intervention and personal management. The aggregate critical care time was [33] minutes without overlap. Time includes spent on; [x] Data Review and interpretation [x] Patient assessment and monitoring of vital signs [x] Documentation [x] Medication orders and management Subjective Date of service: 06/02/21 Principal diagnosis: Ac. hypoxemic resp failure; CAP; Ac. encephalopathy; SIXTO; Sepsis; PUI COVID Interval history: Patient is seen today for: Ac. hypoxemic resp failure; CAP; Acute encephalopathy; SIXTO; Severe sepsis; PUI COVID-19 infection Seen and examined at bedside; 24hour events reviewed; nursing and respiratory care staff consulted; no adverse overnight events reported to me; resting in bed; remains on MVS; failed SBT earlier but placed back on PSV with p-supp at 15 cm H2O and tolerating well so far; AMS is persistent; no emesis or overt aspir ation and afebrile Objective Vital Signs - 12hr 06/01/21 06/01/21 06/02/21 23:00 23:37 00:00 Temperature 100.5 F H Pulse Rate 81 87 Pulse Rate [ 87 From Monitor] Respiratory 28 H 26 H Rate Blood Pressure 116/56 O2 Sat by Pulse 100 100 Oximetry 06/02/21 06/02/21 06/02/21 00:02 01:00 02:00 Temperature Pulse Rate 86 87 88 Pulse Rate [ From Monitor] Respiratory 27 H 25 H Rate Blood Pressure 119/55 115/52 110/59 O2 Sat by Pulse 100 100 100 Oximetry 06/02/21 06/02/21 06/02/21 03:00 03:41 04:00 Temperature 100.4 F H Pulse Rate 94 H 93 H Pulse Rate [ 93 H From Monitor] Respiratory 29 H 28 H Rate Blood Pressure 137/59 126/61 O2 Sat by Pulse 99 100 Oximetry 06/02/21 06/02/21 06/02/21 04:17 05:00 06:00 Temperature Pulse Rate 91 H 89 85 Pulse Rate [ From Monitor] Respiratory 22 22 Rate Blood Pressure 127/59 124/61 102/58 O2 Sat by Pulse 100 100 100 Oximetry 06/02/21 06/02/21 06/02/21 07:00 07:40 07:58 Temperature 99.8 F H Pulse Rate 90 88 Pulse Rate [ From Monitor] Respiratory 29 H Rate Blood Pressure 132/60 117/55 O2 Sat by Pulse 100 100 Oximetry 06/02/21 06/02/21 06/02/21 08:00 08:06 08:23 Temperature Pulse Rate 89 89 Pulse Rate [ 89 From Monitor] Respiratory 33 H 33 H Rate Blood Pressure 121/61 O2 Sat by Pulse 100 100 Oximetry 06/02/21 06/02/21 06/02/21 09:00 09:18 10:00 Temperature Pulse Rate 87 88 88 Pulse Rate [ From Monitor] Respiratory 29 H 28 H Rate Blood Pressure 136/60 142/61 129/61 O2 Sat by Pulse 100 95 Oximetry Constitutional: no acute distress, other (orally intuabted to MVS, + mild dys- synchrony, ETT (7.5) 23 cm at the lip) Eyes: non-icteric ENT: oropharynx moist Neck: supple, no lymphadenopathy, no JVD Effort: mildly labored Ascultation: Bilateral: diminished breath sounds Percussion: Bilateral: not dull Cardiovascular: regular rate and rhythm, other (S1,S2) Gastrointestinal: normoactive bowel sounds, soft, non-tender, non-distended, other (Cast changed to condom cath) Integumentary: normal Extremities: no cyanosis, no edema, pulses normal, no ischemia or petechiae Neurologic: pupils equal and round, other (encephalopathic) Psychiatric: other (unable to assess) CBC and BMP: 06/02/21 09:50 06/02/21 05:24 ABG, PT/INR, D-dimer: ABG ABG pH 7.555 (7.320-7.450) H 06/01/21 04:00 POC ABG pCO2 27.6 mmHg (32.0-48.0) L 06/01/21 04:00 POC ABG pO2 65.6 mmHg (83-108) L 06/01/21 04:00 POC ABG HCO3 23.9 06/01/21 04:00 ABG O2 Saturation 94.5 (0-100) 06/01/21 04:00 PT/INR, D-dimer D-Dimer 8255.81 ng/mlDDU (0-234) H 05/26/21 17:08 Abnormal lab findings: Abnormal Labs 05/26/21 05/26/21 05/26/21 17:08 17:08 17:08 WBC RBC Hgb Hct MCV MCH MCHC 31 L RDW 16.2 H Plt Count 80 L Seg Neuts % (Manual) Lymphocytes % (Manual) Seg Neutrophils # Man Lymphocytes # (Manual) Monocytes # (Manual) APTT 42.4 H D-Dimer 8255.81 H ABG pH POC ABG pCO2 POC ABG pO2 ABG Hemoglobin ABG Oxyhemoglobin ABG Sodium ABG Chloride ABG Glucose Carboxyhemoglobin Sodium 180 H* Potassium Chloride 140 H Carbon Dioxide 21 L BUN 118 H Creatinine 5.4 H Glucose 133 H POC Glucose Lactic Acid Calcium 8.1 L Phosphorus Magnesium Ferritin AST 97 H ALT 71 H Alkaline Phosphatase 138 H Lactate Dehydrogenase 550 H Troponin T 0.038 H C-Reactive Protein 4.20 H Albumin 3.3 L Triglycerides 150 H HDL Cholesterol 24 L Arterial Blood Glucose Arterial Blood Ionized Calcium Urine WBC (Auto) Urine Creatinine Salicylates Acetaminophen 05/26/21 05/26/21 05/26/21 17:08 17:08 17:08 WBC RBC Hgb Hct MCV MCH MCHC RDW Plt Count Seg Neuts % (Manual) Lymphocytes % (Manual) Seg Neutrophils # Man Lymphocytes # (Manual) Monocytes # (Manual) APTT D-Dimer ABG pH POC ABG pCO2 POC ABG pO2 ABG Hemoglobin ABG Oxyhemoglobin ABG Sodium ABG Chloride ABG Glucose Carboxyhemoglobin Sodium Potassium Chloride Carbon Dioxide BUN Creatinine Glucose POC Glucose Lactic Acid 3.90 H* Calcium Phosphorus Magnesium Ferritin 598.3 H AST ALT Alkaline Phosphatase Lactate Dehydrogenase Troponin T C-Reactive Protein Albumin Triglycerides HDL Cholesterol Arterial Blood Glucose Arterial Blood Ionized Calcium Urine WBC (Auto) Urine Creatinine Salicylates Acetaminophen < 5.0 L 05/26/21 05/26/21 05/26/21 17:08 17:27 23:28 WBC RBC Hgb Hct MCV MCH MCHC RDW Plt Count Seg Neuts % (Manual) Lymphocytes % (Manual) Seg Neutrophils # Man Lymphocytes # (Manual) Monocytes # (Manual) APTT D-Dimer ABG pH POC ABG pCO2 POC ABG pO2 453.5 H ABG Hemoglobin 11.5 L ABG Oxyhemoglobin 98.7 H ABG Sodium 198.2 H ABG Chloride ABG Glucose 116 H Carboxyhemoglobin 0.3 L Sodium Potassium Chloride Carbon Dioxide BUN Creatinine Glucose POC Glucose 182 H Lactic Acid Calcium Phosphorus Magnesium Ferritin AST ALT Alkaline Phosphatase Lactate Dehydrogenase Troponin T C-Reactive Protein Albumin Triglycerides HDL Cholesterol Arterial Blood Glucose 116 H Arterial Blood Ionized Calcium Urine WBC (Auto) Urine Creatinine Salicylates < 0.3 L Acetaminophen 05/26/21 05/26/21 05/27/21 Unknown Unknown 01:58 WBC RBC Hgb Hct MCV MCH MCHC RDW Plt Count Seg Neuts % (Manual) Lymphocytes % (Manual) Seg Neutrophils # Man Lymphocytes # (Manual) Monocytes # (Manual) APTT D-Dimer ABG pH POC ABG pCO2 POC ABG pO2 ABG Hemoglobin ABG Oxyhemoglobin ABG Sodium ABG Chloride ABG Glucose Carboxyhemoglobin Sodium Potassium Chloride Carbon Dioxide BUN Creatinine Glucose POC Glucose Lactic Acid 2.90 H* Calcium Phosphorus Magnesium Ferritin AST ALT Alkaline Phosphatase Lactate Dehydrogenase Troponin T C-Reactive Protein Albumin Triglycerides HDL Cholesterol Arterial Blood Glucose Arterial Blood Ionized Calcium Urine WBC (Auto) 16.0 H Urine Creatinine 51.6 H Salicylates Acetaminophen 05/27/21 05/27/21 05/27/21 02:00 02:00 03:19 WBC 27.1 H RBC Hgb 11.1 L Hct MCV MCH 27 L MCHC 31 L RDW 16.1 H Plt Count 62 L Seg Neuts % (Manual) 93.0 H Lymphocytes % (Manual) 3.0 L Seg Neutrophils # Man 25.2 H Lymphocytes # (Manual) 0.8 L Monocytes # (Manual) 1.1 H APTT D-Dimer ABG pH POC ABG pCO2 31.7 L POC ABG pO2 79.5 L ABG Hemoglobin 10.9 L ABG Oxyhemoglobin ABG Sodium 181.4 H ABG Chloride ABG Glucose 276 H Carboxyhemoglobin 0.1 L Sodium 180 H* Potassium Chloride 140 H Carbon Dioxide 19 L BUN 100 H Creatinine 4.3 H Glucose 272 H POC Glucose Lactic Acid Calcium 7.0 L Phosphorus 5.00 H Magnesium Ferritin AST 66 H ALT 64 H Alkaline Phosphatase Lactate Dehydrogenase Troponin T C-Reactive Protein Albumin 2.9 L Triglycerides HDL Cholesterol Arterial Blood Glucose 276 H Arterial Blood Ionized Calcium 4.1 L Urine WBC (Auto) Urine Creatinine Salicylates Acetaminophen 05/27/21 05/27/21 05/27/21 08:22 08:22 12:08 WBC RBC Hgb Hct MCV MCH MCHC RDW Plt Count Seg Neuts % (Manual) Lymphocytes % (Manual) Seg Neutrophils # Man Lymphocytes # (Manual) Monocytes # (Manual) APTT D-Dimer ABG pH POC ABG pCO2 POC ABG pO2 ABG Hemoglobin ABG Oxyhemoglobin ABG Sodium ABG Chloride ABG Glucose Carboxyhemoglobin Sodium 179 H* Potassium Chloride > 139 H Carbon Dioxide 21 L 19 L BUN 103 H 105 H Creatinine 4.2 H 4.2 H Glucose 271 H 217 H POC Glucose Lactic Acid 2.20 H* Calcium 7.3 L 7.0 L Phosphorus Magnesium Ferritin AST ALT Alkaline Phosphatase Lactate Dehydrogenase Troponin T C-Reactive Protein Albumin Triglycerides HDL Cholesterol Arterial Blood Glucose Arterial Blood Ionized Calcium Urine WBC (Auto) Urine Creatinine Salicylates Acetaminophen 05/27/21 05/27/21 05/27/21 12:14 18:03 23:15 WBC RBC Hgb Hct MCV MCH MCHC RDW Plt Count Seg Neuts % (Manual) Lymphocytes % (Manual) Seg Neutrophils # Man Lymphocytes # (Manual) Monocytes # (Manual) APTT D-Dimer ABG pH POC ABG pCO2 POC ABG pO2 ABG Hemoglobin ABG Oxyhemoglobin ABG Sodium ABG Chloride ABG Glucose Carboxyhemoglobin Sodium Potassium Chloride Carbon Dioxide BUN Creatinine Glucose POC Glucose 184 H 183 H 191 H Lactic Acid Calcium Phosphorus Magnesium Ferritin AST ALT Alkaline Phosphatase Lactate Dehydrogenase Troponin T C-Reactive Protein Albumin Triglycerides HDL Cholesterol Arterial Blood Glucose Arterial Blood Ionized Calcium Urine WBC (Auto) Urine Creatinine Salicylates Acetaminophen 05/28/21 05/28/21 05/28/21 03:19 05:15 08:47 WBC RBC Hgb Hct MCV MCH MCHC RDW Plt Count Seg Neuts % (Manual) Lymphocytes % (Manual) Seg Neutrophils # Man Lymphocytes # (Manual) Monocytes # (Manual) APTT D-Dimer ABG pH POC ABG pCO2 29.6 L POC ABG pO2 115.2 H ABG Hemoglobin 10.2 L ABG Oxyhemoglobin ABG Sodium 153.6 H ABG Chloride 129.0 H ABG Glucose 215 H Carboxyhemoglobin 0.3 L Sodium 159 H D Potassium Chloride 123.7 H Carbon Dioxide 20 L BUN 88 H Creatinine 2.9 H Glucose 177 H POC Glucose 184 H Lactic Acid Calcium 6.3 L Phosphorus Magnesium Ferritin AST ALT Alkaline Phosphatase Lactate Dehydrogenase Troponin T C-Reactive Protein Albumin Triglycerides HDL Cholesterol Arterial Blood Glucose 215 H Arterial Blood Ionized Calcium 3.7 L Urine WBC (Auto) Urine Creatinine Salicylates Acetaminophen 05/28/21 05/28/21 05/28/21 11:50 16:27 17:23 WBC RBC Hgb Hct MCV MCH MCHC RDW Plt Count Seg Neuts % (Manual) Lymphocytes % (Manual) Seg Neutrophils # Man Lymphocytes # (Manual) Monocytes # (Manual) APTT D-Dimer ABG pH POC ABG pCO2 POC ABG pO2 ABG Hemoglobin ABG Oxyhemoglobin ABG Sodium ABG Chloride ABG Glucose Carboxyhemoglobin Sodium 154 H Potassium Chloride Carbon Dioxide BUN Creatinine Glucose POC Glucose 130 H 113 H Lactic Acid Calcium Phosphorus Magnesium Ferritin AST ALT Alkaline Phosphatase Lactate Dehydrogenase Troponin T C-Reactive Protein Albumin Triglycerides HDL Cholesterol Arterial Blood Glucose Arterial Blood Ionized Calcium Urine WBC (Auto) Urine Creatinine Salicylates Acetaminophen 05/28/21 05/29/2105/29/21 23:28 02:59 04:15 WBC RBC Hgb Hct MCV MCH MCHC RDW Plt Count Seg Neuts % (Manual) Lymphocytes % (Manual) Seg Neutrophils # Man Lymphocytes # (Manual) Monocytes # (Manual) APTT D-Dimer ABG pH 7.481 H POC ABG pCO2 24.6 L POC ABG pO2 ABG Hemoglobin 10.6 L ABG Oxyhemoglobin ABG Sodium 149.5 H ABG Chloride 122.0 H ABG Glucose 129 H Carboxyhemoglobin 0.3 L Sodium 159 H Potassium Chloride 124.0 H Carbon Dioxide 21 L BUN 88 H Creatinine 2.4 H Glucose 136 H POC Glucose 139 H Lactic Acid Calcium 6.8 L Phosphorus Magnesium Ferritin AST ALT Alkaline Phosphatase Lactate Dehydrogenase Troponin T C-Reactive Protein Albumin Triglycerides HDL Cholesterol Arterial Blood Glucose 129 H Arterial Blood Ionized Calcium 3.8 L Urine WBC (Auto) Urine Creatinine Salicylates Acetaminophen 05/29/21 05/29/21 05/29/21 05:13 15:35 18:05 WBC RBC Hgb Hct MCV MCH MCHC RDW Plt Count Seg Neuts % (Manual) Lymphocytes % (Manual) Seg Neutrophils # Man Lymphocytes # (Manual) Monocytes # (Manual) APTT D-Dimer ABG pH POC ABG pCO2 POC ABG pO2 ABG Hemoglobin ABG Oxyhemoglobin ABG Sodium ABG Chloride ABG Glucose Carboxyhemoglobin Sodium 160 H Potassium Chloride 124.8 H Carbon Dioxide 20 L BUN 83 H Creatinine 1.9 H Glucose 147 H POC Glucose 138 H 141 H Lactic Acid Calcium 7.1 L Phosphorus Magnesium Ferritin AST ALT Alkaline Phosphatase Lactate Dehydrogenase Troponin T C-Reactive Protein Albumin Triglycerides HDL Cholesterol Arterial Blood Glucose Arterial Blood Ionized Calcium Urine WBC (Auto) Urine Creatinine Salicylates Acetaminophen 05/29/21 05/30/21 05/30/21 23:22 01:20 04:33 WBC RBC Hgb Hct MCV MCH MCHC RDW Plt Count Seg Neuts % (Manual) Lymphocytes % (Manual) Seg Neutrophils # Man Lymphocytes # (Manual) Monocytes # (Manual) APTT D-Dimer ABG pH 7.484 H POC ABG pCO2 24.6 L POC ABG pO2 131.2 H ABG Hemoglobin 11.7 L ABG Oxyhemoglobin 98.1 H ABG Sodium 155.7 H ABG Chloride 126.0 H ABG Glucose 191 H Carboxyhemoglobin 0.1 L Sodium 162 H* Potassium Chloride 129.0 H Carbon Dioxide 19 L BUN 89 H Creatinine 2.1 H Glucose 190 H POC Glucose 160 H Lactic Acid Calcium 7.4 L Phosphorus Magnesium Ferritin AST ALT Alkaline Phosphatase Lactate Dehydrogenase Troponin T C-Reactive Protein Albumin Triglycerides HDL Cholesterol Arterial Blood Glucose 191 H Arterial Blood Ionized Calcium 4.1 L Urine WBC (Auto) Urine Creatinine Salicylates Acetaminophen 05/30/21 05/30/21 05/30/21 05:21 15:25 17:59 WBC RBC Hgb Hct MCV MCH MCHC RDW Plt Count Seg Neuts % (Manual) Lymphocytes % (Manual) Seg Neutrophils # Man Lymphocytes # (Manual) Monocytes # (Manual) APTT D-Dimer ABG pH POC ABG pCO2 POC ABG pO2 ABG Hemoglobin ABG Oxyhemoglobin ABG Sodium ABG Chloride ABG Glucose Carboxyhemoglobin Sodium 161 H* Potassium 3.4 L Chloride 131.7 H Carbon Dioxide 18 L BUN 77 H Creatinine 1.5 H Glucose 200 H POC Glucose 169 H 147 H Lactic Acid Calcium 7.2 L Phosphorus Magnesium Ferritin AST ALT Alkaline Phosphatase Lactate Dehydrogenase Troponin T C-Reactive Protein Albumin Triglycerides HDL Cholesterol Arterial Blood Glucose Arterial Blood Ionized Calcium Urine WBC (Auto) Urine Creatinine Salicylates Acetaminophen 05/30/21 05/31/21 05/31/21 23:34 04:33 05:29 WBC RBC Hgb Hct MCV MCH MCHC RDW Plt Count Seg Neuts % (Manual) Lymphocytes % (Manual) Seg Neutrophils # Man Lymphocytes # (Manual) Monocytes # (Manual) APTT D-Dimer ABG pH POC ABG pCO2 POC ABG pO2 ABG Hemoglobin ABG Oxyhemoglobin ABG Sodium ABG Chloride ABG Glucose Carboxyhemoglobin Sodium 154 H Potassium Chloride 123.6 H Carbon Dioxide 19 L BUN 52 H Creatinine Glucose 139 H POC Glucose 153 H 132 H Lactic Acid Calcium 7.1 L Phosphorus 2.30 L Magnesium Ferritin AST ALT Alkaline Phosphatase Lactate Dehydrogenase Troponin T C-Reactive Protein Albumin Triglycerides HDL Cholesterol Arterial Blood Glucose Arterial Blood Ionized Calcium Urine WBC (Auto) Urine Creatinine Salicylates Acetaminophen 05/31/21 05/31/21 05/31/21 11:47 15:23 17:18 WBC RBC Hgb Hct MCV MCH MCHC RDW Plt Count Seg Neuts % (Manual) Lymphocytes % (Manual) Seg Neutrophils # Man Lymphocytes # (Manual) Monocytes # (Manual) APTT D-Dimer ABG pH POC ABG pCO2 POC ABG pO2 ABG Hemoglobin ABG Oxyhemoglobin ABG Sodium ABG Chloride ABG Glucose Carboxyhemoglobin Sodium 149 H Potassium 3.4 L D Chloride 117.7 H Carbon Dioxide 21 L BUN 40 H Creatinine Glucose 139 H POC Glucose 114 H 108 H Lactic Acid Calcium 7.0 L Phosphorus Magnesium Ferritin AST ALT Alkaline Phosphatase Lactate Dehydrogenase Troponin T C-Reactive Protein Albumin Triglycerides HDL Cholesterol Arterial Blood Glucose Arterial Blood Ionized Calcium Urine WBC (Auto) Urine Creatinine Salicylates Acetaminophen 05/31/21 06/01/21 06/01/21 23:13 04:00 05:50 WBC RBC Hgb Hct MCV MCH MCHC RDW Plt Count Seg Neuts % (Manual) Lymphocytes % (Manual) Seg Neutrophils # Man Lymphocytes # (Manual) Monocytes # (Manual) APTT D-Dimer ABG pH 7.555 H POC ABG pCO2 27.6 L POC ABG pO2 65.6 L ABG Hemoglobin 9.2 L ABG Oxyhemoglobin ABG Sodium ABG Chloride 111.0 H ABG Glucose 143 H Carboxyhemoglobin 0.1 L Sodium Potassium Chloride Carbon Dioxide BUN Creatinine Glucose POC Glucose 126 H 121 H Lactic Acid Calcium Phosphorus Magnesium Ferritin AST ALT Alkaline Phosphatase Lactate Dehydrogenase Troponin T C-Reactive Protein Albumin Triglycerides HDL Cholesterol Arterial Blood Glucose 143 H Arterial Blood Ionized Calcium 3.7 L Urine WBC (Auto) Urine Creatinine Salicylates Acetaminophen 06/01/21 06/01/21 06/01/21 10:10 10:10 11:35 WBC 17.6 H RBC Hgb Hct MCV MCH 27 L MCHC RDW Plt Count 105 L Seg Neuts % (Manual) Lymphocytes % (Manual) Seg Neutrophils # Man Lymphocytes # (Manual) Monocytes # (Manual) APTT D-Dimer ABG pH POC ABG pCO2 POC ABG pO2 ABG Hemoglobin ABG Oxyhemoglobin ABG Sodium ABG Chloride ABG Glucose Carboxyhemoglobin Sodium Potassium 3.5 L Chloride Carbon Dioxide BUN 30 H Creatinine Glucose 137 H POC Glucose 112 H Lactic Acid Calcium 7.1 L Phosphorus 1.80 L D Magnesium 1.40 L Ferritin AST ALT Alkaline Phosphatase Lactate Dehydrogenase Troponin T C-Reactive Protein Albumin Triglycerides HDL Cholesterol Arterial Blood Glucose Arterial Blood Ionized Calcium Urine WBC (Auto) Urine Creatinine Salicylates Acetaminophen 06/01/21 06/02/21 06/02/21 17:41 05:24 09:50 WBC 17.1 H RBC 3.14 L Hgb 8.5 L D Hct 25.6 L D MCV 82 L MCH 27 L MCHC RDW Plt Count 124 L Seg Neuts % (Manual) Lymphocytes % (Manual) Seg Neutrophils # Man Lymphocytes # (Manual) Monocytes # (Manual) APTT D-Dimer ABG pH POC ABG pCO2 POC ABG pO2 ABG Hemoglobin ABG Oxyhemoglobin ABG Sodium ABG Chloride ABG Glucose Carboxyhemoglobin Sodium Potassium Chloride 108.1 H Carbon Dioxide BUN 31 H Creatinine 0.7 L Glucose 128 H POC Glucose 125 H Lactic Acid Calcium 6.1 L Phosphorus Magnesium Ferritin AST ALT Alkaline Phosphatase Lactate Dehydrogenase Troponin T C-Reactive Protein Albumin Triglycerides HDL Cholesterol Arterial Blood Glucose Arterial Blood Ionized Calcium Urine WBC (Auto) Urine Creatinine Salicylates Acetaminophen Chest x-ray: image reviewed (no acute process) Allied health notes reviewed: nursing
--- NOTE | 2021-06-02 11:47 | Progress Note ---
Assessment and Plan 1. Acute kidney injury: Vasomotor SIXTO in the volume depletion / dehydration. CT abdomen negative for hydro. Monitor renal function. Creatinine level is better. Non-oliguric. Avoid nephrotoxic agents. Meds dosage based on GFR. 2. FEN: Hypernatremia, improved, monitor. Metabolic acidosis, monitor. Lactic acidosis. Monitor lytes. 3. Acute respiratory failure with hypoxia: 2/2 PNA. Intubated, on vent. 4. Pneumonia, POA: Covid test negative. Follow cultures. 5. Elevated Troponin: Monitor. 6. Hypertension: Monitor BP. Meds as appropriate. 7. Acute metabolic Encephalopathy, POA: Monitor. Prognosis guarded. Subjective: Patient was seen and examined at the bedside. Examination: General appearance: well-developed, thin built, appears stated age, intubated, on vent HEENT: ATNC, pupils equal Neck: supple Respiratory: coarse breath sounds Cardiology: regular, S1S2, no murmur Gastrointestinal: soft, bowel sounds heard, not tender Integumentary: no rash, warm and dry Neurologic: slight grimace Ext: no edema : Cast catheter Subjective Date of service: 06/02/21 Principal diagnosis: Ac. hypoxemic resp failure; CAP; Ac. encephalopathy; SIXTO; Sepsis; PUI COVID Objective - Vital Signs Vital signs: Vital Signs - 12hr 06/02/21 06/02/21 06/02/21 00:00 00:02 01:00 Temperature Pulse Rate 87 86 87 Pulse Rate [ 87 From Monitor] Respiratory 26 H 27 H Rate Blood Pressure 119/55 115/52 O2 Sat by Pulse 100 100 100 Oximetry 06/02/21 06/02/21 06/02/21 02:00 03:00 03:41 Temperature 100.4 F H Pulse Rate 88 94 H Pulse Rate [ From Monitor] Respiratory 25 H 29 H Rate Blood Pressure 110/59 137/59 O2 Sat by Pulse 100 99 Oximetry 06/02/21 06/02/21 06/02/21 04:00 04:17 05:00 Temperature Pulse Rate 93 H 91 H 89 Pulse Rate [ 93 H From Monitor] Respiratory 28 H 22 Rate Blood Pressure 126/61 127/59 124/61 O2 Sat by Pulse 100 100 100 Oximetry 06/02/21 06/02/21 06/02/21 06:00 07:00 07:40 Temperature Pulse Rate 85 90 88 Pulse Rate [ From Monitor] Respiratory 22 29 H Rate Blood Pressure 102/58 132/60 117/55 O2 Sat by Pulse 100 100 100 Oximetry 06/02/21 06/02/21 06/02/21 07:58 08:00 08:06 Temperature 99.8 F H Pulse Rate 89 89 Pulse Rate [ From Monitor] Respiratory 33 H Rate Blood Pressure 121/61 O2 Sat by Pulse 100 Oximetry 06/02/21 06/02/21 06/02/21 08:23 09:00 09:18 Temperature Pulse Rate 87 88 Pulse Rate [ 89 From Monitor] Respiratory 33 H 29 H Rate Blood Pressure 136/60 142/61 O2 Sat by Pulse 100 100 Oximetry 06/02/21 06/02/21 10:00 11:20 Temperature Pulse Rate 88 84 Pulse Rate [ From Monitor] Respiratory 28 H 29 H Rate Blood Pressure 129/61 117/54 O2 Sat by Pulse 95 100 Oximetry - Lab 06/02/21 09:50 06/02/21 05:24 Most recent lab results ABG pH 7.555 (7.320-7.450) H 06/01/21 04:00 ABG O2 Saturation 94.5 (0-100) 06/01/21 04:00 Calcium 6.1 mg/dL (8.4-10.2) L 06/02/21 05:24 Phosphorus 2.70 mg/dL (2.5-4.5) D 06/02/21 05:24 Magnesium 2.10 mg/dL (1.7-2.3) 06/02/21 05:24 Urine Creatinine 51.6 mg/dL (0.1-20.0) H 05/26/21 Unknown Urine Sodium 96 mmol/L 05/26/21 Unknown Medications & Allergies - Medications Allergies/Adverse Reactions: Allergies No Known Allergies Allergy (Verified 05/29/21 18:46) Home Medications: Home Medications Medication Instructions Recorded Confirmed Last Taken Type No Known Home Medications [No 05/26/21 05/26/21 Unknown History Reported Home Medications] Active Medications: Generic Name Dose Route Start Last Admin Trade Name Freq PRN Reason Stop Dose Admin Acetaminophen 650 mg 05/30/21 08:30 05/30/21 09:33 Acetaminophen 325 Mg/10.15 Ml Oral Liqd Unit Dose FEEDTUBE 650 mg Q6H PRN Administration Pain 1 -3, fever >100.5 Albuterol 2.5 mg 05/26/21 18:34 Albuterol 2.5 Mg/3 Ml Nebu IH Q3HRT PRN Shortness Of Breath Amlodipine Besylate 10 mg 05/29/21 12:00 06/02/21 09:18 Amlodipine 10 Mg Tab PO 10 mg QDAY ONDINA Administration Lipase/Protease/Amylase 1 each 05/28/21 08:24 Lipase 10,500/Protease 25,000/Amylase 43,750 (Units) Dr De Leon FEEDTUBE PRN PRN For Clogged Feeding Tube Ascorbic Acid 500 mg 05/26/21 22:00 06/02/21 09:18 Ascorbic Acid 500 Mg Tab PO 500 mg BID ONDINA Administration Cholecalciferol 1,000 unit 05/27/21 10:00 06/02/21 09:18 Cholecalciferol (Vit D3) 1000 Unit (25 Mcg) Tab PO 1,000 unit QDAY ONDINA Administration Famotidine 20 mg 05/28/21 10:00 06/02/21 09:17 Famotidine 20 Mg Tab PO 20 mg DAILY ONDINA Administration Heparin Sodium (Porcine) 5,000 unit 05/26/21 22:00 06/02/21 09:37 Heparin 5,000 Unit/1 Ml Vial SUB-Q 5,000 unit Q12HR ONDINA Administration Hydrophilic Ointment 1 applic 05/26/21 17:02 Lip Therapy Vaseline TP Q2HR PRN Dry Lips Propofol 1,000 mg in 100 mls @ 1.361 mls/hr 05/30/21 06:00 05/31/21 08:50 Diprivan 10 Mg/Ml IV 0 mcg/kg/min TITR ONDINA 0 mls/hr Titration Protocol 5 MCG/KG/MIN Multi-Ingred Cream/Lotion/Oil/Oint 1 applic 05/26/21 17:02 Mineral Oil/Petrolatum, White Ophth Oint 3.5 Gm OU Q4HR PRN Dry Eye(s) Senna/Docusate Sodium 1 tab 05/26/21 22:00 06/02/21 09:17 Sennosides/Docusate Sodium 8.6/50 Mg Tab FEEDTUBE 1 tab BID ONDINA Administration Simple Syrup 15 ml 05/28/21 08:24 Simple Syrup 15 Ml FEEDTUBE PRN PRN Hypoglycemia Simple Syrup 30 ml 05/28/21 08:24 Simple Syrup 15 Ml FEEDTUBE PRN PRN Hypoglycemia Sodium Bicarbonate 325 mg 05/28/21 08:24 Sodium Bicarbonate 325 Mg Tab FEEDTUBE PRN PRN For Clogged Feeding Tube Sodium Chloride 10 ml 05/26/21 22:00 06/02/21 09:26 Sodium Chloride 0.9% 10 Ml Flush Syringe IV 10 ml BID ONDINA Administration Sodium Chloride 10 ml 05/26/21 18:34 Sodium Chloride 0.9% 10 Ml Flush Syringe IV PRN PRN LINE FLUSH Tamsulosin HCl 0.8 mg 05/29/21 12:00 06/02/21 09:17 Tamsulosin 0.4 Mg Cap PO 0.8 mg QDAY ONDINA Administration Zinc Sulfate 220 mg 05/26/21 22:00 06/02/21 09:17 Zinc Sulfate 220 Mg Cap PO 220 mg BID ONDINA Administration
--- NOTE | 2021-06-02 13:01 | Consultation ---
History of Present Illness Consult date: 06/02/21 Reason for Consult: Altered mentation History of present illness: Unresponsive History of present illness: 81 YO Male with HTN, Dementia presents to ED for evaluation. Patient is intubated and on ventilatory support at the time my evaluation is unable to provide history. Patient history taken from EMS staff, ED staff, as well as patient family who was made available by telephone. As per family the patient was found to have decreased responsiveness today. EMS was notified and upon arrival the patient was found to be in distress with decreased responsiveness. The patient was treated with nasopharyngeal intubation and subsequently transported to [facility] for further care and evaluation of the aforementioned sympt oms. The patient was seen and evaluated in the emergency department. All lab and imaging studies reviewed. The patient was found to have a temperature of 102.5 F as well as agonal breathing. The patient was subsequently intubated and placed on ventilatory support. The patient was found to have sepsis, right upper lobe pneumonia, acute hypoxemic respiratory failure suspected secondary to coronavirus infection, hyponatremia, volume depletion, urinary tract infection, as well as toxic metabolic encephalopathy, as well as acute kidney injury with acute tubular necrosis. 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 The patient was admitted to ICU and initiated on sepsis protocol as well as coronavirus protocol. Critical care team consulted in ED. Nephrology team consulted in ED. No further history is obtainable. No prior admission for review. No medication listed at time of admission for reconciliation. Advanced care planning conducted in ED. Past History Past Medical History: hypertension, other (See HPI) Past Surgical History: No surgical history, Other (Unable to obtain) Social history: no significant social history, other (Unable to obtain) Family history: no significant family history, other (Unable to obtain) Medications and Allergies Allergies Allergy/AdvReac Type Severity Reaction Status Date / Time No Known Allergies Allergy Unverified 05/26/21 18:11 Active Meds: Active Medications Famotidine (Famotidine 20 Mg/2 Ml Inj) 20 mg IV BID [facility] Fentanyl (Fentanyl 100 Mcg/2 Ml Inj) 50 mcg IV Q10MIN PRN PRN Reason: ANALGESIA Hydrophilic Ointment (Lip Therapy Vaseline) 1 applic TP Q2HR PRN PRN Reason: Dry Lips Vancomycin HCl 1,500 mg/ (Sodium Chloride) 530 mls @ 333 mls/hr IV ONCE ONE; Protocol Stop: 05/26/21 19:37 Fentanyl Citrate (Fentanyl Drip Premix) 2,000 mcg in 100 mls @ 0 mls/hr IV TITR [facility]; Protocol Multi-Ingred Cream/Lotion/Oil/Oint (Mineral Oil/Petrolatum, White Ophth Oint 3.5 Gm) 1 applic OU Q4HR PRN PRN Reason: Dry Eye(s) Senna/Docusate Sodium (Sennosides/Docusate Sodium 8.6/50 Mg Tab) 1 tab FEEDTUBE BID [facility] Review of Systems ROS unobtainable: due to endotracheal tube, due to mental status Exam - Constitutional Vitals: Temp Pulse Resp BP Pulse Ox 102.8 F H 118 H 20 203/95 100 05/26/21 17:00 05/26/21 17:00 05/26/21 17:00 05/26/21 17:00 05/26/21 17:00 General appearance: Present: severe distress - EENT Eyes: Present: miosis ENT: hearing decreased - Neck Neck: Present: supple, normal ROM - Respiratory Respiratory effort: labored Respiratory: bilateral: diminished, rhonchi - Cardiovascular Rhythm: other (Tachycardia) Peripheral Pulses: abnormal (Capillary refill greater than 3.5 seconds) - Abdominal General gastrointestinal: Present: soft, non-tender, non-distended - Integumentary Integumentary: Present: dry, clammy, decreased turgor - Musculoskeletal Musculoskeletal: generalized weakness - Psychiatric Psychiatric: no appropriate mood/affect, no intact judgment & insight, no memory intact - Neurologic Neurologic: CNII-XII intact, no focal deficits, moves all extremities, no gait normal HEART Score - HEART Score Troponin: Troponin T 0.038 ng/mL (0.00-0.029) H 05/26/21 17:08 Results - Labs CBC & Chem 7: 05/26/21 17:08 05/26/21 17:08 Labs: Abnormal lab results 05/26/21 05/26/21 05/26/21 Range/Units 17:08 17:08 17:08 MCHC 31 L (32-34) % RDW 16.2 H (13.2-15.2) % Plt Count 80 L (140-440) K/mm3 APTT 42.4 H (24.2-36.6) Sec. D-Dimer 8255.81 H (0-234) ng/mlDDU POC ABG pO2 (83-108) mmHg ABG Hemoglobin (12.0-17.5) ABG Oxyhemoglobin (94-98) ABG Sodium (136.0-145.0) mmol/L ABG Glucose (65-95) mg/dL Carboxyhemoglobin (0.5-1.5) Carbon Dioxide 21 L (22-30) mmol/L BUN 118 H (9-20) mg/dL Creatinine 5.4 H (0.8-1.3) mg/dL Glucose 133 H (75-100) mg/dL Lactic Acid (0.7-2.0) mmol/L Calcium 8.1 L (8.4-10.2) mg/dL Ferritin (30.0-300.0) ng/mL AST 97 H (5-40) units/L ALT 71 H (7-56) units/L Alkaline Phosphatase 138 H (35-129) units/L Lactate Dehydrogenase 550 H (91-180) units/L Troponin T 0.038 H (0.00-0.029) ng/mL C-Reactive Protein 4.20 H (0.00-1.30) mg/dL Albumin 3.3 L (3.9-5) g/dL Triglycerides 150 H (2-149) mg/dL HDL Cholesterol 24 L (40-59) mg/dL Arterial Blood Glucose (65-95) mg/dL Urine WBC (Auto) (0.0-6.0) /HPF Salicylates (2.8-20.0) mg/dL Acetaminophen (10.0-30.0) ug/mL 05/26/21 05/26/21 05/26/21 Range/Units 17:08 17:08 17:08 MCHC (32-34) % RDW (13.2-15.2) % Plt Count (140-440) K/mm3 APTT (24.2-36.6) Sec. D-Dimer (0-234) ng/mlDDU POC ABG pO2 (83-108) mmHg ABG Hemoglobin (12.0-17.5) ABG Oxyhemoglobin (94-98) ABG Sodium (136.0-145.0) mmol/L ABG Glucose (65-95) mg/dL Carboxyhemoglobin (0.5-1.5) Carbon Dioxide (22-30) mmol/L BUN (9-20) mg/dL Creatinine (0.8-1.3) mg/dL Glucose (75-100) mg/dL Lactic Acid 3.90 H* (0.7-2.0) mmol/L Calcium (8.4-10.2) mg/dL Ferritin 598.3 H (30.0-300.0) ng/mL AST (5-40) units/L ALT (7-56) units/L Alkaline Phosphatase (35-129) units/L Lactate Dehydrogenase (91-180) units/L Troponin T (0.00-0.029) ng/mL C-Reactive Protein (0.00-1.30) mg/dL Albumin (3.9-5) g/dL Triglycerides (2-149) mg/dL HDL Cholesterol (40-59) mg/dL Arterial Blood Glucose (65-95) mg/dL Urine WBC (Auto) (0.0-6.0) /HPF Salicylates (2.8-20.0) mg/dL Acetaminophen < 5.0 L (10.0-30.0) ug/mL 05/26/21 05/26/21 05/26/21 Range/Units 17:08 17:27 Unknown MCHC (32-34) % RDW (13.2-15.2) % Plt Count (140-440) K/mm3 APTT (24.2-36.6) Sec. D-Dimer (0-234) ng/mlDDU POC ABG pO2 453.5 H (83-108) mmHg ABG Hemoglobin 11.5 L (12.0-17.5) ABG Oxyhemoglobin 98.7 H (94-98) ABG Sodium 198.2 H (136.0-145.0) mmol/L ABG Glucose 116 H (65-95) mg/dL Carboxyhemoglobin 0.3 L (0.5-1.5) Carbon Dioxide (22-30) mmol/L BUN (9-20) mg/dL Creatinine (0.8-1.3) mg/dL Glucose (75-100) mg/dL Lactic Acid (0.7-2.0) mmol/L Calcium (8.4-10.2) mg/dL Ferritin (30.0-300.0) ng/mL AST (5-40) units/L ALT (7-56) units/L Alkaline Phosphatase (35-129) units/L Lactate Dehydrogenase (91-180) units/L Troponin T (0.00-0.029) ng/mL C-Reactive Protein (0.00-1.30) mg/dL Albumin (3.9-5) g/dL Triglycerides (2-149) mg/dL HDL Cholesterol (40-59) mg/dL Arterial Blood Glucose 116 H (65-95) mg/dL Urine WBC (Auto) 16.0 H (0.0-6.0) /HPF Salicylates < 0.3 L (2.8-20.0) mg/dL Acetaminophen (10.0-30.0) ug/mL Past History Past Medical History: hypertension, other (See HPI) Past Surgical History: No surgical history, Other (Unable to obtain) Social history: no significant social history, other (Unable to obtain) Family history: no significant family history, other (Unable to obtain) Medications and Allergies Allergies Allergy/AdvReac Type Severity Reaction Status Date / Time No Known Allergies Allergy Verified 05/29/21 18:46 Home Medications Medication Instructions Recorded Confirmed Last Taken Type No Known Home Medications [No 05/26/21 05/26/21 Unknown History Reported Home Medications] Active Meds: Active Medications Acetaminophen (Acetaminophen 325 Mg/10.15 Ml Oral Liqd Unit Dose) 650 mg FEEDTUBE Q6H PRN PRN Reason: Pain 1 -3, fever >100.5 Last Admin: 05/30/21 09:33 Dose: 650 mg Documented by: Albuterol (Albuterol 2.5 Mg/3 Ml Nebu) 2.5 mg IH Q3HRT PRN PRN Reason: Shortness Of Breath Amlodipine Besylate (Amlodipine 10 Mg Tab) 10 mg PO QDAY [facility] Last Admin: 06/02/21 09:18 Dose: 10 mg Documented by: Lipase/Protease/Amylase (Lipase 10,500/Protease 25,000/Amylase 43,750 (Units) Dr De Leon) 1 each FEEDTUBE PRN PRN PRN Reason: For Clogged Feeding Tube Ascorbic Acid (Ascorbic Acid 500 Mg Tab) 500 mg PO BID [facility] Last Admin: 06/02/21 09:18 Dose: 500 mg Documented by: Cholecalciferol (Cholecalciferol (Vit D3) 1000 Unit (25 Mcg) Tab) 1,000 unit PO QDAY [facility] Last Admin: 06/02/21 09:18 Dose: 1,000 unit Documented by: Famotidine (Famotidine 20 Mg Tab) 20 mg PO DAILY [facility] Last Admin: 06/02/21 09:17 Dose: 20 mg Documented by: Heparin Sodium (Porcine) (Heparin 5,000 Unit/1 Ml Vial) 5,000 unit SUB-Q Q12HR [facility] Last Admin: 06/02/21 09:37 Dose: 5,000 unit Documented by: Hydrophilic Ointment (Lip Therapy Vaseline) 1 applic TP Q2HR PRN PRN Reason: Dry Lips Propofol (Diprivan 10 Mg/Ml) 1,000 mg in 100 mls @ 1.361 mls/hr IV TITR [facility]; Protocol Last Titration: 05/31/21 08:50 Dose: 0 mcg/kg/min, 0 mls/hr Documented by: Multi-Ingred Cream/Lotion/Oil/Oint (Mineral Oil/Petrolatum, White Ophth Oint 3.5 Gm) 1 applic OU Q4HR PRN PRN Reason: Dry Eye(s) Senna/Docusate Sodium (Sennosides/Docusate Sodium 8.6/50 Mg Tab) 1 tab FEEDTUBE BID [facility] Last Admin: 06/02/21 09:17 Dose: 1 tab Documented by: Simple Syrup (Simple Syrup 15 Ml) 15 ml FEEDTUBE PRN PRN PRN Reason: Hypoglycemia Simple Syrup (Simple Syrup 15 Ml) 30 ml FEEDTUBE PRN PRN PRN Reason: Hypoglycemia Sodium Bicarbonate (Sodium Bicarbonate 325 Mg Tab) 325 mg FEEDTUBE PRN PRN PRN Reason: For Clogged Feeding Tube Sodium Chloride (Sodium Chloride 0.9% 10 Ml Flush Syringe) 10 ml IV BID [facility] Last Admin: 06/02/21 09:26 Dose: 10 ml Documented by: Sodium Chloride (Sodium Chloride 0.9% 10 Ml Flush Syringe) 10 ml IV PRN PRN PRN Reason: LINE FLUSH Tamsulosin HCl (Tamsulosin 0.4 Mg Cap) 0.8 mg PO QDAY [facility] Last Admin: 06/02/21 09:17 Dose: 0.8 mg Documented by: Zinc Sulfate (Zinc Sulfate 220 Mg Cap) 220 mg PO BID [facility] Last Admin: 06/02/21 09:17 Dose: 220 mg Documented by: Physical Examination - Vital Signs Vital Signs: Vital Signs Temp Pulse Resp BP Pulse Ox 102.8 F H 118 H 20 203/95 100 05/26/21 17:00 05/26/21 17:00 05/26/21 17:00 05/26/21 17:00 05/26/21 17:00 Results - Laboratory Findings CBC and BMP: 06/02/21 09:50 06/02/21 05:24 Abnormal Lab Findings: Abnormal Labs 05/26/21 05/26/21 05/26/21 17:08 17:08 17:08 WBC RBC Hgb Hct MCV MCH MCHC 31 L RDW 16.2 H Plt Count 80 L Seg Neuts % (Manual) Lymphocytes % (Manual) Seg Neutrophils # Man Lymphocytes # (Manual) Monocytes # (Manual) APTT 42.4 H D-Dimer 8255.81 H ABG pH POC ABG pCO2 POC ABG pO2 ABG Hemoglobin ABG Oxyhemoglobin ABG Sodium ABG Chloride ABG Glucose Carboxyhemoglobin Sodium 180 H* Potassium Chloride 140 H Carbon Dioxide 21 L BUN 118 H Creatinine 5.4 H Glucose 133 H POC Glucose Lactic Acid Calcium 8.1 L Phosphorus Magnesium Ferritin AST 97 H ALT 71 H Alkaline Phosphatase 138 H Lactate Dehydrogenase 550 H Troponin T 0.038 H C-Reactive Protein 4.20 H Albumin 3.3 L Triglycerides 150 H HDL Cholesterol 24 L Arterial Blood Glucose Arterial Blood Ionized Calcium Urine WBC (Auto) Urine Creatinine Salicylates Acetaminophen 05/26/21 05/26/21 05/26/21 17:08 17:08 17:08 WBC RBC Hgb Hct MCV MCH MCHC RDW Plt Count Seg Neuts % (Manual) Lymphocytes % (Manual) Seg Neutrophils # Man Lymphocytes # (Manual) Monocytes # (Manual) APTT D-Dimer ABG pH POC ABG pCO2 POC ABG pO2 ABG Hemoglobin ABG Oxyhemoglobin ABG Sodium ABG Chloride ABG Glucose Carboxyhemoglobin Sodium Potassium Chloride Carbon Dioxide BUN Creatinine Glucose POC Glucose Lactic Acid 3.90 H* Calcium Phosphorus Magnesium Ferritin 598.3 H AST ALT Alkaline Phosphatase Lactate Dehydrogenase Troponin T C-Reactive Protein Albumin Triglycerides HDL Cholesterol Arterial Blood Glucose Arterial Blood Ionized Calcium Urine WBC (Auto) Urine Creatinine Salicylates Acetaminophen < 5.0 L 05/26/21 05/26/21 05/26/21 17:08 17:27 23:28 WBC RBC Hgb Hct MCV MCH MCHC RDW Plt Count Seg Neuts % (Manual) Lymphocytes % (Manual) Seg Neutrophils # Man Lymphocytes # (Manual) Monocytes # (Manual) APTT D-Dimer ABG pH POC ABG pCO2 POC ABG pO2 453.5 H ABG Hemoglobin 11.5 L ABG Oxyhemoglobin 98.7 H ABG Sodium 198.2 H ABG Chloride ABG Glucose 116 H Carboxyhemoglobin 0.3 L Sodium Potassium Chloride Carbon Dioxide BUN Creatinine Glucose POC Glucose 182 H Lactic Acid Calcium Phosphorus Magnesium Ferritin AST ALT Alkaline Phosphatase Lactate Dehydrogenase Troponin T C-Reactive Protein Albumin Triglycerides HDL Cholesterol Arterial Blood Glucose 116 H Arterial Blood Ionized Calcium Urine WBC (Auto) Urine Creatinine Salicylates < 0.3 L Acetaminophen 05/26/21 05/26/21 05/27/21 Unknown Unknown 01:58 WBC RBC Hgb Hct MCV MCH MCHC RDW Plt Count Seg Neuts % (Manual) Lymphocytes % (Manual) Seg Neutrophils # Man Lymphocytes # (Manual) Monocytes # (Manual) APTT D-Dimer ABG pH POC ABG pCO2 POC ABG pO2 ABG Hemoglobin ABG Oxyhemoglobin ABG Sodium ABG Chloride ABG Glucose Carboxyhemoglobin Sodium Potassium Chloride Carbon Dioxide BUN Creatinine Glucose POC Glucose Lactic Acid 2.90 H* Calcium Phosphorus Magnesium Ferritin AST ALT Alkaline Phosphatase Lactate Dehydrogenase Troponin T C-Reactive Protein Albumin Triglycerides HDL Cholesterol Arterial Blood Glucose Arterial Blood Ionized Calcium Urine WBC (Auto) 16.0 H Urine Creatinine 51.6 H Salicylates Acetaminophen 05/27/21 05/27/21 05/27/21 02:00 02:00 03:19 WBC 27.1 H RBC Hgb 11.1 L Hct MCV MCH 27 L MCHC 31 L RDW 16.1 H Plt Count 62 L Seg Neuts % (Manual) 93.0 H Lymphocytes % (Manual) 3.0 L Seg Neutrophils # Man 25.2 H Lymphocytes # (Manual) 0.8 L Monocytes # (Manual) 1.1 H APTT D-Dimer ABG pH POC ABG pCO2 31.7 L POC ABG pO2 79.5 L ABG Hemoglobin 10.9 L ABG Oxyhemoglobin ABG Sodium 181.4 H ABG Chloride ABG Glucose 276 H Carboxyhemoglobin 0.1 L Sodium 180 H* Potassium Chloride 140 H Carbon Dioxide 19 L BUN 100 H Creatinine 4.3 H Glucose 272 H POC Glucose Lactic Acid Calcium 7.0 L Phosphorus 5.00 H Magnesium Ferritin AST 66 H ALT 64 H Alkaline Phosphatase Lactate Dehydrogenase Troponin T C-Reactive Protein Albumin 2.9 L Triglycerides HDL Cholesterol Arterial Blood Glucose 276 H Arterial Blood Ionized Calcium 4.1 L Urine WBC (Auto) Urine Creatinine Salicylates Acetaminophen 05/27/21 05/27/21 05/27/21 08:22 08:22 12:08 WBC RBC Hgb Hct MCV MCH MCHC RDW Plt Count Seg Neuts % (Manual) Lymphocytes % (Manual) Seg Neutrophils # Man Lymphocytes # (Manual) Monocytes # (Manual) APTT D-Dimer ABG pH POC ABG pCO2 POC ABG pO2 ABG Hemoglobin ABG Oxyhemoglobin ABG Sodium ABG Chloride ABG Glucose Carboxyhemoglobin Sodium 179 H* Potassium Chloride > 139 H Carbon Dioxide 21 L 19 L BUN 103 H 105 H Creatinine 4.2 H 4.2 H Glucose 271 H 217 H POC Glucose Lactic Acid 2.20 H* Calcium 7.3 L 7.0 L Phosphorus Magnesium Ferritin AST ALT Alkaline Phosphatase Lactate Dehydrogenase Troponin T C-Reactive Protein Albumin Triglycerides HDL Cholesterol Arterial Blood Glucose Arterial Blood Ionized Calcium Urine WBC (Auto) Urine Creatinine Salicylates Acetaminophen 05/27/21 05/27/21 05/27/21 12:14 18:03 23:15 WBC RBC Hgb Hct MCV MCH MCHC RDW Plt Count Seg Neuts % (Manual) Lymphocytes % (Manual) Seg Neutrophils # Man Lymphocytes # (Manual) Monocytes # (Manual) APTT D-Dimer ABG pH POC ABG pCO2 POC ABG pO2 ABG Hemoglobin ABG Oxyhemoglobin ABG Sodium ABG Chloride ABG Glucose Carboxyhemoglobin Sodium Potassium Chloride Carbon Dioxide BUN Creatinine Glucose POC Glucose 184 H 183 H 191 H Lactic Acid Calcium Phosphorus Magnesium Ferritin AST ALT Alkaline Phosphatase Lactate Dehydrogenase Troponin T C-Reactive Protein Albumin Triglycerides HDL Cholesterol Arterial Blood Glucose Arterial Blood Ionized Calcium Urine WBC (Auto) Urine Creatinine Salicylates Acetaminophen 05/28/21 05/28/21 05/28/21 03:19 05:15 08:47 WBC RBC Hgb Hct MCV MCH MCHC RDW Plt Count Seg Neuts % (Manual) Lymphocytes % (Manual) Seg Neutrophils # Man Lymphocytes # (Manual) Monocytes # (Manual) APTT D-Dimer ABG pH POC ABG pCO2 29.6 L POC ABG pO2 115.2 H ABG Hemoglobin 10.2 L ABG Oxyhemoglobin ABG Sodium 153.6 H ABG Chloride 129.0 H ABG Glucose 215 H Carboxyhemoglobin 0.3 L Sodium 159 H D Potassium Chloride 123.7 H Carbon Dioxide 20 L BUN 88 H Creatinine 2.9 H Glucose 177 H POC Glucose 184 H Lactic Acid Calcium 6.3 L Phosphorus Magnesium Ferritin AST ALT Alkaline Phosphatase Lactate Dehydrogenase Troponin T C-Reactive Protein Albumin Triglycerides HDL Cholesterol Arterial Blood Glucose 215 H Arterial Blood Ionized Calcium 3.7 L Urine WBC (Auto) Urine Creatinine Salicylates Acetaminophen 05/28/21 05/28/21 05/28/21 11:50 16:27 17:23 WBC RBC Hgb Hct MCV MCH MCHC RDW Plt Count Seg Neuts % (Manual) Lymphocytes % (Manual) Seg Neutrophils # Man Lymphocytes # (Manual) Monocytes # (Manual) APTT D-Dimer ABG pH POC ABG pCO2 POC ABG pO2 ABG Hemoglobin ABG Oxyhemoglobin ABG Sodium ABG Chloride ABG Glucose Carboxyhemoglobin Sodium 154 H Potassium Chloride Carbon Dioxide BUN Creatinine Glucose POC Glucose 130 H 113 H Lactic Acid Calcium Phosphorus Magnesium Ferritin AST ALT Alkaline Phosphatase Lactate Dehydrogenase Troponin T C-Reactive Protein Albumin Triglycerides HDL Cholesterol Arterial Blood Glucose Arterial Blood Ionized Calcium Urine WBC (Auto) Urine Creatinine Salicylates Acetaminophen 05/28/21 05/29/21 05/29/21 23:28 02:59 04:15 WBC RBC Hgb Hct MCV MCH MCHC RDW Plt Count Seg Neuts % (Manual) Lymphocytes % (Manual) Seg Neutrophils # Man Lymphocytes # (Manual) Monocytes # (Manual) APTT D-Dimer ABG pH 7.481 H POC ABG pCO2 24.6 L POC ABG pO2 ABG Hemoglobin 10.6 L ABG Oxyhemoglobin ABG Sodium 149.5 H ABG Chloride 122.0 H ABG Glucose 129 H Carboxyhemoglobin 0.3 L Sodium 159 H Potassium Chloride 124.0 H Carbon Dioxide 21 L BUN 88 H Creatinine 2.4 H Glucose 136 H POC Glucose 139 H Lactic Acid Calcium 6.8 L Phosphorus Magnesium Ferritin AST ALT Alkaline Phosphatase Lactate Dehydrogenase Troponin T C-Reactive Protein Albumin Triglycerides HDL Cholesterol Arterial Blood Glucose 129 H Arterial Blood Ionized Calcium 3.8 L Urine WBC (Auto) Urine Creatinine Salicylates Acetaminophen 05/29/21 05/29/21 05/29/21 05:13 15:35 18:05 WBC RBC Hgb Hct MCV MCH MCHC RDW Plt Count Seg Neuts % (Manual) Lymphocytes % (Manual) Seg Neutrophils # Man Lymphocytes # (Manual) Monocytes # (Manual) APTT D-Dimer ABG pH POC ABG pCO2 POC ABG pO2 ABG Hemoglobin ABG Oxyhemoglobin ABG Sodium ABG Chloride ABG Glucose Carboxyhemoglobin Sodium 160 H Potassium Chloride 124.8 H Carbon Dioxide 20 L BUN 83 H Creatinine 1.9 H Glucose 147 H POC Glucose 138 H 141 H Lactic Acid Calcium 7.1 L Phosphorus Magnesium Ferritin AST ALT Alkaline Phosphatase Lactate Dehydrogenase Troponin T C-Reactive Protein Albumin Triglycerides HDL Cholesterol Arterial Blood Glucose Arterial Blood Ionized Calcium Urine WBC (Auto) Urine Creatinine Salicylates Acetaminophen 05/29/21 05/30/21 05/30/21 23:22 01:20 04:33 WBC RBC Hgb Hct MCV MCH MCHC RDW Plt Count Seg Neuts % (Manual) Lymphocytes % (Manual) Seg Neutrophils # Man Lymphocytes # (Manual) Monocytes # (Manual) APTT D-Dimer ABG pH 7.484 H POC ABG pCO2 24.6 L POC ABG pO2 131.2 H ABG Hemoglobin 11.7 L ABG Oxyhemoglobin 98.1 H ABG Sodium 155.7 H ABG Chloride 126.0 H ABG Glucose 191 H Carboxyhemoglobin 0.1 L Sodium 162 H* Potassium Chloride 129.0 H Carbon Dioxide 19 L BUN 89 H Creatinine 2.1 H Glucose 190 H POC Glucose 160 H Lactic Acid Calcium 7.4 L Phosphorus Magnesium Ferritin AST ALT Alkaline Phosphatase Lactate Dehydrogenase Troponin T C-Reactive Protein Albumin Triglycerides HDL Cholesterol Arterial Blood Glucose 191 H Arterial Blood Ionized Calcium 4.1 L Urine WBC (Auto) Urine Creatinine Salicylates Acetaminophen 05/30/21 05/30/21 05/30/21 05:21 15:25 17:59 WBC RBC Hgb Hct MCV MCH MCHC RDW Plt Count Seg Neuts % (Manual) Lymphocytes % (Manual) Seg Neutrophils # Man Lymphocytes # (Manual) Monocytes # (Manual) APTT D-Dimer ABG pH POC ABG pCO2 POC ABG pO2 ABG Hemoglobin ABG Oxyhemoglobin ABG Sodium ABG Chloride ABG Glucose Carboxyhemoglobin Sodium 161 H* Potassium 3.4 L Chloride 131.7 H Carbon Dioxide 18 L BUN 77 H Creatinine 1.5 H Glucose 200 H POC Glucose 169 H 147 H Lactic Acid Calcium 7.2 L Phosphorus Magnesium Ferritin AST ALT Alkaline Phosphatase Lactate Dehydrogenase Troponin T C-Reactive Protein Albumin Triglycerides HDL Cholesterol Arterial Blood Glucose Arterial Blood Ionized Calcium Urine WBC (Auto) Urine Creatinine Salicylates Acetaminophen 05/30/21 05/31/21 05/31/21 23:34 04:33 05:29 WBC RBC Hgb Hct MCV MCH MCHC RDW Plt Count Seg Neuts % (Manual) Lymphocytes % (Manual) Seg Neutrophils # Man Lymphocytes # (Manual) Monocytes # (Manual) APTT D-Dimer ABG pH POC ABG pCO2 POC ABG pO2 ABG Hemoglobin ABG Oxyhemoglobin ABG Sodium ABG Chloride ABG Glucose Carboxyhemoglobin Sodium 154 H Potassium Chloride 123.6 H Carbon Dioxide 19 L BUN 52 H Creatinine Glucose 139 H POC Glucose 153 H 132 H Lactic Acid Calcium 7.1 L Phosphorus 2.30 L Magnesium Ferritin AST ALT Alkaline Phosphatase Lactate Dehydrogenase Troponin T C-Reactive Protein Albumin Triglycerides HDL Cholesterol Arterial Blood Glucose Arterial Blood Ionized Calcium Urine WBC (Auto) Urine Creatinine Salicylates Acetaminophen 05/31/21 05/31/21 05/31/21 11:47 15:23 17:18 WBC RBC Hgb Hct MCV MCH MCHC RDW Plt Count Seg Neuts % (Manual) Lymphocytes % (Manual) Seg Neutrophils # Man Lymphocytes # (Manual) Monocytes # (Manual) APTT D-Dimer ABG pH POC ABG pCO2 POC ABG pO2 ABG Hemoglobin ABG Oxyhemoglobin ABG Sodium ABG Chloride ABG Glucose Carboxyhemoglobin Sodium 149 H Potassium 3.4 L D Chloride 117.7 H Carbon Dioxide 21 L BUN 40 H Creatinine Glucose 139 H POC Glucose 114 H 108 H Lactic Acid Calcium 7.0 L Phosphorus Magnesium Ferritin AST ALT Alkaline Phosphatase Lactate Dehydrogenase Troponin T C-Reactive Protein Albumin Triglycerides HDL Cholesterol Arterial Blood Glucose Arterial Blood Ionized Calcium Urine WBC (Auto) Urine Creatinine Salicylates Acetaminophen 05/31/21 06/01/21 06/01/21 23:13 04:00 05:50 WBC RBC Hgb Hct MCV MCH MCHC RDW Plt Count Seg Neuts % (Manual) Lymphocytes % (Manual) Seg Neutrophils # Man Lymphocytes # (Manual) Monocytes # (Manual) APTT D-Dimer ABG pH 7.555 H POC ABG pCO2 27.6 L POC ABG pO2 65.6 L ABG Hemoglobin 9.2 L ABG Oxyhemoglobin ABG Sodium ABG Chloride 111.0 H ABG Glucose 143 H Carboxyhemoglobin 0.1 L Sodium Potassium Chloride Carbon Dioxide BUN Creatinine Glucose POC Glucose 126 H 121 H Lactic Acid Calcium Phosphorus Magnesium Ferritin AST ALT Alkaline Phosphatase Lactate Dehydrogenase Troponin T C-Reactive Protein Albumin Triglycerides HDL Cholesterol Arterial Blood Glucose 143 H Arterial Blood Ionized Calcium 3.7 L Urine WBC (Auto) Urine Creatinine Salicylates Acetaminophen 06/01/21 06/01/21 06/01/21 10:10 10:10 11:35 WBC 17.6 H RBC Hgb Hct MCV MCH 27 L MCHC RDW Plt Count 105 L Seg Neuts % (Manual) Lymphocytes % (Manual) Seg Neutrophils # Man Lymphocytes # (Manual) Monocytes # (Manual) APTT D-Dimer ABG pH POC ABG pCO2 POC ABG pO2 ABG Hemoglobin ABG Oxyhemoglobin ABG Sodium ABG Chloride ABG Glucose Carboxyhemoglobin Sodium Potassium 3.5 L Chloride Carbon Dioxide BUN 30 H Creatinine Glucose 137 H POC Glucose 112 H Lactic Acid Calcium 7.1 L Phosphorus 1.80 L D Magnesium 1.40 L Ferritin AST ALT Alkaline Phosphatase Lactate Dehydrogenase Troponin T C-Reactive Protein Albumin Triglycerides HDL Cholesterol Arterial Blood Glucose Arterial Blood Ionized Calcium Urine WBC (Auto) Urine Creatinine Salicylates Acetaminophen 06/01/21 06/02/21 06/02/21 17:41 05:24 09:50 WBC 17.1 H RBC 3.14 L Hgb 8.5 L D Hct 25.6 L D MCV 82 L MCH 27 L MCHC RDW Plt Count 124 L Seg Neuts % (Manual) Lymphocytes % (Manual) Seg Neutrophils # Man Lymphocytes # (Manual) Monocytes # (Manual) APTT D-Dimer ABG pH POC ABG pCO2 POC ABG pO2 ABG Hemoglobin ABG Oxyhemoglobin ABG Sodium ABG Chloride ABG Glucose Carboxyhemoglobin Sodium Potassium Chloride 108.1 H Carbon Dioxide BUN 31 H Creatinine 0.7 L Glucose 128 H POC Glucose 125 H Lactic Acid Calcium 6.1 L Phosphorus Magnesium Ferritin AST ALT Alkaline Phosphatase Lactate Dehydrogenase Troponin T C-Reactive Protein Albumin Triglycerides HDL Cholesterol Arterial Blood Glucose Arterial Blood Ionized Calcium Urine WBC (Auto) Urine Creatinine Salicylates Acetaminophen Assessment and Plan Assessment and Plan # Encephalopathy -81 ys old male admitted on 05/26/21 with change mentation and and pneumonia pt. required intubation and sedation -Initially treated with abs -had renal failure with prerenal azotemia # creatinine 5.4 --- 2.4 -Hypernatremia NA# 162-- 142 -Initially was sedated now off sedation since 06/01 -COVID-19 is negative == finding from hx and exam is suggestive encephalopathy multifactorial -seizure can not be excluded -hypoxemia can not be excluded -suggest EEG -Off sedation -MRI brain #Sepsis -Sepsis protocol: CBC, CMP, chest x-ray, urinalysis, IV fluid resuscitation therapy, monitor urine output every shift, maintain mean arterial pressure greater than or equal to 65, serial lactic acid level, # Acute hypoxemic respiratory failure -Patient intubated and ambulatory support. Wean vent as tolerated, sedation holiday, daily ABG, spontaneous breathing trial daily, daily chest x-ray. # Suspected 2019-nCoV infection -Coronavirus protocol: IV antibiotic therapy, IV steroid therapy, vitamin C therapy, vitamin D therapy, zinc therapy, -Harrell Virus PCR is negative # Acute kidney injury (SIXTO) with acute tubular necrosis (ATN) -IV fluid resuscitation therapy, BMP, repeat BMP in a.m., supportive care. Nephrology team consulted -Creatinine 5.4---0.7. # Hypernatremia -IV fluid resuscitation therapy, repeat BMP, repeat BMP in a.m. nephrology team consulted -162---142 # Pneumonia -Pneumonia protocol: Chest x-ray, CBC, CMP, IV antibiotic therapy, supplemental oxygen, pulse oximetry, # UTI (urinary tract infection) -CBC, CMP, IV antibiotic therapy, blood culture. # DVT prophylaxis -SCD to bilateral lower extremities while in bed, prophylactic anticoagulation # Advance care planning -Disease education conducted, care plan discussed, diagnosis discussed, prognosis discussed, patient is full code, patient family knowledges understanding and agree with care plan as well as quarded prognosis PLAN 1-Hold sedation 2- MRI brain 3-EEG 4- Treat underlying infection 5- Correct electrolytes abn. will follow The high probability of a clinically significant, sudden or life threatening deterioration of the [cardiac, neuro, renal, ID, respiratory] system(s) required my full and direct attention, intervention and personal management. The aggregate critical care time was [80] minutes. [x] Data Review and interpretation [x] Patient assessment and monitoring of vital signs [x] Documentation [x] Medication orders and management
--- NOTE | 2021-06-02 16:05 | Progress Note ---
Assessment and Plan Assessment and plan: This 81-year-old male with hypertension and dementia admitted with acute hypoxic respiratory failure suspected, COVID-19 PUI, pneumonia, hypernatremia, volume depletion, urinary tract infection, toxic metabolic encephalopathy, SIXTO, sepsis Neuro: Acute metabolic encephalopathy -Aspiration/seizure precautions -Sedated with propofol while on mechanical ventilation, off for SBT -05/26 CT head shows no focal mass, hemorrhage, hydrocephalus or acute or large territorial infarct, mild to moderate mucosal thickening in the ethmoid with prior mastoidectomy noted on the right, vascular disease seen in the anterior and posterior circulation, moderate diffuse cerebral atrophy with anterior temporal lobe atrophy being the greatest, moderate to marked degree of hippocampal atrophy suggested bilaterally, suggestion of encephalomalacia in the inferior temporal lobe on the right as well as anterior temporal lobe with question prior branch infarct or trauma -Neurology consulted -06/02 EEG pending -06/02 MRI Brain pending CV: ?Hypertension, ? CAD, Elevated troponin -No recorded home medications -Amlodipine -Hydralazine as needed -Blood pressure monitoring per protocol -05/26 CT chest/abdomen/pelvis without contrast dense atherosclerotic calcification of the thoracic aorta distribution of the coronary vessels, scattered patchy ill-defined densities within the mid and lower lung zone, mild prominence of both ureters, dense atherosclerotic calcification along the abdominal aorta without evidence of aneurysm -Need to follow-up with PCP -Possibly NSTEMI in setting of SIXTO -Trend CE Respiratory: Acute hypoxemic respiratory failure -On mechanical ventilation -Wean mechanical ventilation as tolerated -VAP bundle -ABGs as needed -CXR daily for 7 days per protocol -Daily SBT FEN/GI: Acute kidney injury/ATN, Protein calorie malnutrition, Hypocalcemia -Presented with BUN/creatinine of 118/5.4 -Nephrology consulted, appreciate recommendations -Strict intake and output -Daily weights -Nephrotoxic medications -Renally dose medications -On tube feedings -SSI, Accu-Cheks every 6 -Nutrition consulted, patient recommendations -Replete Ca -Trend BMP : Urinary Retention -White placed for urinary retention -Flomax ID/Heme: Sepsis, UTI, Bilateral PNA, Leukocytosis, Thrombocytopenia (improving), Anemia -Presented with with tachycardia, febrile to 102.8 degrees Fahrenheit, acute hypoxic respiratory failure, acute kidney injury, pneumonia on imaging, pyuria -abx therapy -05/26 CT chest showed faint bilateral patchy pulmonary opacities suggestive of infectious process that is pneumonia -05/26 blood cultures x2 no growth after 5 days -05/26 sputum culture grew E. coli, Staph aureus (pansensitive) -05/26 urine culture with no growth after 48 hours -05/26 UA with pyuria -05/26 urine culture with no growth to date -05/31 blood cultures x2 in progress -s/p abx therapy -Transfuse for hgb <7 -Stool guiac pending -Coags pending -Avoid chemical anticoagulation -Trend CBC DVT/GI prophylaxis: Hold chemical anticoagulation in setting of thrombocytopenia, SCDs to bilateral LE while in bed, PPI Disposition: ICU Lines: white, PIVs The high probability of a clinically significant, sudden or life threatening deterioration of the [respiratory, renal and electrolyte] system(s) required my full and direct attention, intervention and personal management. The aggregate critical care time was [35] minutes. This time is in addition to time spent performing reported procedures but includes the following: [x] Data Review and interpretation [x] Patient assessment and monitoring of vital signs [x] Documentation [x] Medication orders and management History Interval history: This 81-year-old male with hypertension and dementia who presents to [facility] ER on 05/26 with decreased responsiveness since 05/25 per family. Patient was placed on nasopharyngeal airway and bagged by EMS on route to [facility]. Upon arrival to emergency indices 05/27/2021. Patient with severe hypernatremia secondary to dehydration/vasomotor nephropathy. Continue IV fluid hydration per nephrology recommendations. Patient with a creatinine September 2019 of 0.7. On this admission patient was noted to have a creatinine of 5.4. Slightly improved today to 4.2. Etiology secondary to vasomotor nephropathy/acute kidney injury/volume depletion/dehydration. Follow-up urine studies. CT scan of the abdomen pelvis did not reveal any obstruction. CT chest revealed bilateral pulmonary op acities. Patient with elevated D-dimer that may be secondary to Covid coagulopathy. Consider VQ scan. Unable to perform CTA given renal insufficiency. Await pulmonary consultation 05/28/2021. Hyponatremia has improved to 159. Continue IV fluid hydration per nephrology recommendations. Creatinine has also improved to 2.9. No obstruction per CT scan. COVID-19 testing negative on 05/27/2021. Continue IV antibiotics for bilateral pneumonia and UTI. Follow-up blood and urine cultures. Consider ID consultation patient remains on mechanical ventilation but undergoing PSV trials. Patient currently with PSV with FiO2 of 30% PEEP of 6 and pressure support of 10. Continue vent weaning per pulmonary. 05/29/2021. Hypernatremia persists with sodium improving to 154 yesterday evening but now back to 159. Creatinine has improved to 2.4. Nephrology following.Continue current antibiotics for pneumonia and UTI. Consider CTA of chest for elevated D-dimer when creatinine back to baseline. Patient currently on AC mode ventilation rate of 16, tidal volume 450, FiO2 30% and PEEP of 6. 05/30/2021. Sodium remains elevated at 162 and creatinine elevated at 2.1. Continue free water with 300 mL every 4 hours. Nephrology held IV D5W. Resume IV fluids per nephrology recommendations. CT scan of the abdomen negative for hydronephrosis. Continue IV antibiotics. Patient remains on mechanical ventilation AC mode rate of 20, tidal volume 450, FiO2 40% and a PEEP of 6. 05/31: Patient has hypernatremia improved to 149, this a.m. patient was noted to have a potassium of 4.5 and potassium and his D5 was discontinued and changed to D5W. This evening he was noted the patient had a potassium of 3.4 which was repleted. Patient was started to have hypophosphatemia today which was replete d. Antibiotics were escalated to's ceftriaxone for pansensitive E. coli patient received 7 days of therapy so repeat blood cultures were ordered. 06/01: CPAP trial yesterday lasted from 9am-5pm, will retry CPAP today. Replace Mg, Phos, K, DC IVF in setting of improved Na 06/02: Hypocalemia today which was corrected. Given neuro status unchanged, Neuro consult requested who ordered MRI B and EEG. CPAP trial. drop in h/h, occult stool, coags, type and screen ordered. remove white, bladder scan and straight cath as needed Hospitalist Physical - Constitutional Vitals: Temp Pulse Resp BP Pulse Ox 100.2 F H 96 H 34 H 130/61 100 06/02/21 12:00 06/02/21 13:00 06/02/21 13:00 06/02/21 13:00 06/02/21 13:00 General appearance: Present: no acute distress - EENT Eyes: Present: PERRL, EOM intact ENT: dentition normal - Neck Neck: Present: normal ROM - Respiratory Respiratory effort: normal Respiratory: bilateral: CTA - Cardiovascular Rhythm: regular Heart Sounds: Present: S1 & S2. Absent: systolic murmur, diastolic murmur - Extremities Extremities: no ischemia, pulses intact, pulses symmetrical, normal temperature, normal color Extremity abnormal: edema - Peripheral Assessment Bilateral Generalized Edema Degree: 1+ Capillary Refill: < 3 seconds Skin Temperature: Warm Peripheral Pulses: within normal limits - Abdominal General gastrointestinal: soft, non-tender, non-distended, normal bowel sounds - Integumentary Integumentary: Present: warm, dry - Psychiatric Psychiatric: other (response to painful stimuli) - Neurologic Neurologic: moves all extremities (to painful stimuli) - Allied Health Allied health notes reviewed: nursing, RT, social work HEART Score - HEART Score Troponin: Troponin T 0.038 ng/mL (0.00-0.029) H 05/26/21 17:08 Results - Labs CBC & Chem 7: 06/02/21 09:50 06/02/21 05:24 Labs: Laboratory Last Values WBC 17.1 K/mm3 (4.5-11.0) H 06/02/21 09:50 RBC 3.14 M/mm3 (3.65-5.03) L 06/02/21 09:50 Hgb 8.5 gm/dl (11.8-15.2) L D 06/02/21 09:50 Hct 25.6 % (35.5-45.6) L D 06/02/21 09:50 MCV 82 fl (84-94) L 06/02/21 09:50 MCH 27 pg (28-32) L 06/02/21 09:50 MCHC 33 % (32-34) 06/02/21 09:50 RDW 14.4 % (13.2-15.2) 06/02/21 09:50 Plt Count 124 K/mm3 (140-440) L 06/02/21 09:50 Lymph % (Auto) 30.3 % (13.4-35.0) 05/26/21 17:08 [place] % (Auto) 6.1 % (0.0-7.3) 05/26/21 17:08 Eos % (Auto) 1.0 % (0.0-4.3) 05/26/21 17:08 Baso % (Auto) 0.5 % (0.0-1.8) 05/26/21 17:08 Lymph # (Auto) 3.0 K/mm3 (1.2-5.4) 05/26/21 17:08 [place] # (Auto) 0.6 K/mm3 (0.0-0.8) 05/26/21 17:08 Eos # (Auto) 0.1 K/mm3 (0.0-0.4) 05/26/21 17:08 Baso # (Auto) 0.1 K/mm3 (0.0-0.1) 05/26/21 17:08 Add Manual Diff Complete 05/27/21 02:00 Total Counted 100 05/27/21 02:00 Seg Neutrophils % Artificial Leather Calender Operator 05/27/21 02:00 Seg Neuts % (Manual) 93.0 % (40.0-70.0) H 05/27/21 02:00 Lymphocytes % (Manual) 3.0 % (13.4-35.0) L 05/27/21 02:00 Monocytes % (Manual) 4.0 % (0.0-7.3) 05/27/21 02:00 Nucleated RBC % Not Reportable 05/27/21 02:00 Seg Neutrophils # 6.1 K/mm3 (1.8-7.7) 05/26/21 17:08 Seg Neutrophils # Man 25.2 K/mm3 (1.8-7.7) H 05/27/21 02:00 Band Neutrophils # 0.0 K/mm3 05/27/21 02:00 Lymphocytes # (Manual) 0.8 K/mm3 (1.2-5.4) L 05/27/21 02:00 Abs React Lymphs (Man) 0.0 K/mm3 05/27/21 02:00 Monocytes # (Manual) 1.1 K/mm3 (0.0-0.8) H 05/27/21 02:00 Eosinophils # (Manual) 0.0 K/mm3 (0.0-0.4) 05/27/21 02:00 Basophils # (Manual) 0.0 K/mm3 (0.0-0.1) 05/27/21 02:00 Metamyelocytes # 0.0 K/mm3 05/27/21 02:00 Myelocytes # 0.0 K/mm3 05/27/21 02:00 Promyelocytes # 0.0 K/mm3 05/27/21 02:00 Blast Cells # 0.0 K/mm3 05/27/21 02:00 WBC Morphology Not Reportable 05/27/21 02:00 Hypersegmented Neuts Not Reportable 05/27/21 02:00 Hyposegmented Neuts Not Reportable 05/27/21 02:00 Hypogranular Neuts Not Reportable 05/27/21 02:00 Smudge Cells Not Reportable 05/27/21 02:00 Toxic Granulation Not Reportable 05/27/21 02:00 Toxic Vacuolation Not Reportable 05/27/21 02:00 Dohle Bodies Not Reportable 05/27/21 02:00 Pelger-Huet Anomaly Not Reportable 05/27/21 02:00 Daniel Rods Not Reportable 05/27/21 02:00 Platelet Estimate Not Reportable 05/27/21 02:00 Clumped Platelets Not Reportable 05/27/21 02:00 Plt Clumps, EDTA Not Reportable 05/27/21 02:00 Large Platelets Not Reportable 05/27/21 02:00 Giant Platelets Not Reportable 05/27/21 02:00 Platelet Satelliting Not Reportable 05/27/21 02:00 Plt Morphology Comment Not Reportable 05/27/21 02:00 RBC Morphology Normal 05/27/21 02:00 Dimorphic RBCs Not Reportable 05/27/21 02:00 Polychromasia Not Reportable 05/27/21 02:00 Hypochromasia Not Reportable 05/27/21 02:00 Poikilocytosis Not Reportable 05/27/21 02:00 Anisocytosis Not Reportable 05/27/21 02:00 Microcytosis Not Reportable 05/27/21 02:00 Macrocytosis Not Reportable 05/27/21 02:00 Spherocytes Not Reportable 05/27/21 02:00 Pappenheimer Bodies Not Reportable 05/27/21 02:00 Sickle Cells Not Reportable 05/27/21 02:00 Target Cells Not Reportable 05/27/21 02:00 Tear Drop Cells Not Reportable 05/27/21 02:00 Ovalocytes Not Reportable 05/27/21 02:00 Helmet Cells Not Reportable 05/27/21 02:00 Huertas-Mcnary Bodies Not Reportable 05/27/21 02:00 [place] Rings Not Reportable 05/27/21 02:00 Bernard Cells Not Reportable 05/27/21 02:00 Bite Cells Not Reportable 05/27/21 02:00 Crenated Cell Not Reportable 05/27/21 02:00 Elliptocytes Not Reportable 05/27/21 02:00 Acanthocytes (Spur) Not Reportable 05/27/21 02:00 Rouleaux Not Reportable 05/27/21 02:00 Hemoglobin C Crystals Not Reportable 05/27/21 02:00 Schistocytes Not Reportable 05/27/21 02:00 Malaria parasites Not Reportable 05/27/21 02:00 Arik Bodies Not Reportable 05/27/21 02:00 Hem Pathologist Commnt No 05/27/21 02:00 APTT 42.4 Sec. (24.2-36.6) H 05/26/21 17:08 D-Dimer 8255.81 ng/mlDDU (0-234) H 05/26/21 17:08 ABG pH 7.555 (7.320-7.450) H 06/01/21 04:00 POC ABG pCO2 27.6 mmHg (32.0-48.0) L 06/01/21 04:00 POC ABG pO2 65.6 mmHg (83-108) L 06/01/21 04:00 POC ABG HCO3 23.9 06/01/21 04:00 ABG O2 Saturation 94.5 (0-100) 06/01/21 04:00 POC ABG Base Excess 2.0 06/01/21 04:00 ABG Hemoglobin 9.2 (12.0-17.5) L 06/01/21 04:00 ABG Oxyhemoglobin 94.1 (94-98) 06/01/21 04:00 ABG Methemoglobin 0.3 (0.0-1.5) 06/01/21 04:00 ABG Sodium 137.4 mmol/L (136.0-145.0) 06/01/21 04:00 ABG Potassium 3.5 mmol/L (3.40-4.50) 06/01/21 04:00 ABG Chloride 111.0 mmol/L (98-107) H 06/01/21 04:00 ABG Glucose 143 mg/dL (65-95) H 06/01/21 04:00 Carboxyhemoglobin 0.1 (0.5-1.5) L 06/01/21 04:00 FiO2 % 40.0 06/01/21 04:00 Sodium 142 mmol/L (137-145) 06/02/21 05:24 Potassium 3.7 mmol/L (3.6-5.0) 06/02/21 05:24 Chloride 108.1 mmol/L (98-107) H 06/02/21 05:24 Carbon Dioxide 22 mmol/L (22-30) 06/02/21 05:24 Anion Gap 16 mmol/L 06/02/21 05:24 BUN 31 mg/dL (9-20) H 06/02/21 05:24 Creatinine 0.7 mg/dL (0.8-1.3) L 06/02/21 05:24 Estimated GFR > 60 ml/min 06/02/21 05:24 BUN/Creatinine Ratio 44 % 06/02/21 05:24 Glucose 128 mg/dL (75-100) H 06/02/21 05:24 POC Glucose 105 mg/dL (70-105) 06/02/21 11:28 Lactic Acid 1.60 mmol/L (0.7-2.0) 05/27/21 12:08 Calcium 6.1 mg/dL (8.4-10.2) L 06/02/21 05:24 Phosphorus 2.70 mg/dL (2.5-4.5) D 06/02/21 05:24 Magnesium 2.10 mg/dL (1.7-2.3) 06/02/21 05:24 Ferritin 598.3 ng/mL (30.0-300.0) H 05/26/21 17:08 Total Bilirubin 0.50 mg/dL (0.1-1.2) 05/27/21 02:00 AST 66 units/L (5-40) H 05/27/21 02:00 ALT 64 units/L (7-56) H 05/27/21 02:00 Alkaline Phosphatase 126 units/L (35-129) 05/27/21 02:00 Ammonia 46.0 umol/L (25-60) 05/26/21 17:08 Lactate Dehydrogenase 550 units/L (91-180) H 05/26/21 17:08 Troponin T 0.038 ng/mL (0.00-0.029) H 05/26/21 17:08 C-Reactive Protein 4.20 mg/dL (0.00-1.30) H 05/26/21 17:08 Total Protein 6.6 g/dL (6.3-8.2) 05/27/21 02:00 Albumin 2.9 g/dL (3.9-5) L 05/27/21 02:00 Albumin/Globulin Ratio 0.8 % 05/27/21 02:00 Triglycerides 150 mg/dL (2-149) H 05/26/21 17:08 Cholesterol 145 mg/dL (50-199) 05/26/21 17:08 LDL Cholesterol Direct 84 mg/dL (50-130) 05/26/21 17:08 HDL Cholesterol 24 mg/dL (40-59) L 05/26/21 17:08 Cholesterol/HDL Ratio 6.04 % 05/26/21 17:08 Procalcitonin 0.29 ng/mL (<0.15) 05/26/21 17:08 TSH 0.342 mlU/mL (0.270-4.200) 05/26/21 17:08 Arterial Blood Glucose 143 mg/dL (65-95) H 06/01/21 04:00 Arterial Blood Ionized Calcium 3.7 mg/dL (4.6-5.3) L 06/01/21 04:00 Urine Color Yellow (Yellow) 05/26/21 Unknown Urine Turbidity Clear (Clear) 05/26/21 Unknown Urine pH 5.0 (5.0-7.0) 05/26/21 Unknown Ur Specific [place] 1.011 (1.003-1.030) 05/26/21 Unknown Urine Protein <15 mg/dl mg/dL (Negative) 05/26/21 Unknown Urine Glucose (UA) Neg mg/dL (Negative) 05/26/21 Unknown Urine Ketones Neg mg/dL (Negative) 05/26/21 Unknown Urine Blood Sm (Negative) 05/26/21 Unknown Urine Nitrite Neg (Negative) 05/26/21 Unknown Urine Bilirubin Neg (Negative) 05/26/21 Unknown Urine Urobilinogen < 2.0 mg/dL (<2.0) 05/26/21 Unknown Ur Leukocyte Esterase Neg (Negative) 05/26/21 Unknown Urine WBC (Auto) 16.0 /HPF (0.0-6.0) H 05/26/21 Unknown Urine RBC (Auto) 2.0 /HPF (0.0-6.0) 05/26/21 Unknown Urine Bacteria (Auto) 1+ /HPF (Negative) 05/26/21 Unknown Urine Osmolality 392 Mosm/kg 05/26/21 Unknown Urine Creatinine 51.6 mg/dL (0.1-20.0) H 05/26/21 Unknown Urine Sodium 96 mmol/L 05/26/21 Unknown Random Vancomycin 14.8 ug/mL (0-40.0) 05/30/21 08:29 Salicylates < 0.3 mg/dL (2.8-20.0) L 05/26/21 17:08 Acetaminophen < 5.0 ug/mL (10.0-30.0) L 05/26/21 17:08 Coronavirus (PCR) Negative (Negative) 05/27/21 Unknown Blood Type O POSITIVE 05/26/21 17:00 Antibody Screen Negative 05/26/21 17:00 Microbiology: Microbiology 05/31/21 15:23 Peripheral/Venous Blood Culture - Preliminary NO GROWTH AFTER 24 HOURS 05/31/21 15:23 Peripheral/Venous Blood Culture - Preliminary NO GROWTH AFTER 24 HOURS 05/26/21 17:08 Peripheral/Venous Blood Culture - Preliminary Coag Negative Staphylococcus White/IV: Voiding Method Indwelling Catheter Active Medications - Current Medications Current Medications: Generic Name Dose Route Start Last Admin Trade Name Freq PRN Reason Stop Dose Admin Acetaminophen 650 mg 05/30/21 08:30 05/30/21 09:33 Acetaminophen 325 Mg/10.15 Ml Oral Liqd Unit Dose FEEDTUBE 650 mg Q6H PRN Administration Pain 1 -3, fever >100.5 Albuterol 2.5 mg 05/26/21 18:34 Albuterol 2.5 Mg/3 Ml Nebu IH Q3HRT PRN Shortness Of Breath Amlodipine Besylate 10 mg 05/29/21 12:00 06/02/21 09:18 Amlodipine 10 Mg Tab PO 10 mg QDAY ONDINA Administration Lipase/Protease/Amylase 1 each 05/28/21 08:24 Lipase 10,500/Protease 25,000/Amylase 43,750 (Units) Dr De Leon FEEDTUBE PRN PRN For Clogged Feeding Tube Ascorbic Acid 500 mg 05/26/21 22:00 06/02/21 09:18 Ascorbic Acid 500 Mg Tab PO 500 mg BID ONDINA Administration Cholecalciferol 1,000 unit 05/27/21 10:00 06/02/21 09:18 Cholecalciferol (Vit D3) 1000 Unit (25 Mcg) Tab PO 1,000 unit QDAY ONDINA Administration Famotidine 20 mg 05/28/21 10:00 06/02/21 09:17 Famotidine 20 Mg Tab PO 20 mg DAILY ONDINA Administration Heparin Sodium (Porcine) 5,000 unit 05/26/21 22:00 06/02/21 09:37 Heparin 5,000 Unit/1 Ml Vial SUB-Q 5,000 unit Q12HR ONDINA Administration Hydrophilic Ointment 1 applic 05/26/21 17:02 Lip Therapy Vaseline TP Q2HR PRN Dry Lips Propofol 1,000 mg in 100 mls @ 1.361 mls/hr 05/30/21 06:00 05/31/21 08:50 Diprivan 10 Mg/Ml IV 0 mcg/kg/min TITR ONDINA 0 mls/hr Titration Protocol 5 MCG/KG/MIN Multi-Ingred Cream/Lotion/Oil/Oint 1 applic 05/26/21 17:02 Mineral Oil/Petrolatum, White Ophth Oint 3.5 Gm OU Q4HR PRN Dry Eye(s) Senna/Docusate Sodium 1 tab 05/26/21 22:00 06/02/21 09:17 Sennosides/Docusate Sodium 8.6/50 Mg Tab FEEDTUBE 1 tab BID ONDINA Administration Simple Syrup 15 ml 05/28/21 08:24 Simple Syrup 15 Ml FEEDTUBE PRN PRN Hypoglycemia Simple Syrup 30 ml 05/28/21 08:24 Simple Syrup 15 Ml FEEDTUBE PRN PRN Hypoglycemia Sodium Bicarbonate 325 mg 05/28/21 08:24 Sodium Bicarbonate 325 Mg Tab FEEDTUBE PRN PRN For Clogged Feeding Tube Sodium Chloride 10 ml 05/26/21 22:00 06/02/21 09:26 Sodium Chloride 0.9% 10 Ml Flush Syringe IV 10 ml BID ONDINA Administration Sodium Chloride 10 ml 05/26/21 18:34 Sodium Chloride 0.9% 10 Ml Flush Syringe IV PRN PRN LINE FLUSH Tamsulosin HCl 0.8 mg 05/29/21 12:00 06/02/21 09:17 Tamsulosin 0.4 Mg Cap PO 0.8 mg QDAY ONDINA Administration Zinc Sulfate 220 mg 05/26/21 22:00 06/02/21 09:17 Zinc Sulfate 220 Mg Cap PO 220 mg BID ONDINA Administration Nutrition/Malnutrition Assess - Dietary Evaluation Nutrition/Malnutrition Findings: Nutrition Notes Start: 05/27/21 08:35 Freq: Status: Active Protocol: Document 06/02/21 12:34 (Rec: 06/02/21 12:36 [id number]) Nutrition Notes Initial or Follow up Reassessment Current Diagnosis Acute Kidney Injury,Sepsis, Hypertension,Respiratory Failure Other Pertinent Diagnosis UTI, encephalopathy, dehydration, COVID PUI Current Diet Glucerna 1.2 at 45 ml/hr Labs/Tests BUN 31 Cr 0.7 Ca 6.1 Pertinent Medications Reviewed Height 5 ft 2 in Weight 45.359 kg [place] Body Weight (kg) 53.63 BMI 18.3 Weight Status Underweight Subjective/Other Information FU for TF tolerance. Observed TF running at goal rate and pt tolerating. Percent of energy/protein needs met: 100%/100% Burn Absent Trauma Absent Current % PO Negligible Minimum of two criteria No physical signs of malnutrition #1 Nutrition Diagnosis Inadequate oral intake Diagnosis Progress(for reassessment Continues documentation) Is patient on ventilator? Yes Is Patient Ambulatory and/or Out of Bed No REE-([facility]-confined to bed) 1258.548 Calculation Used for Recommendations [facility] Additional Notes Protein: (1.2-2g/kg) 54-91g Fluid: 1 ml/kcal or per MD Nutrition Intervention Change Diet Order: Continue Nutrition Support: Glucerna 1.2 at 45 ml/hr Flush 300 ml q4h for hypernatermia. Once resolved, flush 75 ml q4h. Kcal 1,296 Protein (gm) 65 Fluid (mL) 869 Goal #1 Meet at least 75% of protein and energy needs via TF Anticipated Discharge Needs: Unable to determine at this time Follow-Up By: 06/04/21 Additional Comments FU for TF tolerance
--- NOTE | 2021-06-02 17:00 | Event Note ---
Date: 06/02/21 Patients granddaughter, Arpita Lauren at bedside with patients' spouse. Arpita interpreted for her grandmother. Updated on current situation and hospital stay including need for vent and weaning, PNA and UTI. Informed of neuro consult and pending MRI and EEG. She asked for patients daughter, Mg Browne to be called in case of emergency at [phone]. Next point of contact should be patients son in law Kyrie Lauren at [phone]. Patients spouse speaks limited Russian. Arpita stated the family believes the patient has Alzheimers or Dementia d/t his forgetfulness, agitation and decreased PO intake. However patient has not been seen by physician and no formal diagnosis has been made.
[2021-06-02 17:31] LABS: INR 1.03 (0.87-1.13)
[2021-06-03 06:33] LABS: Hematocrit 26.7 % (35.5-45.6); Hemoglobin 8.7 gm/dl (11.8-15.2); Mean Corpuscular HGB Conc 33 % (32-34); Mean Corpuscular Volume 82 fl (84-94); Platelet Count 169 K/mm3 (140-440); Red Blood Count 3.24 M/mm3 (3.65-5.03); Red Cell Distribution Width 14.2 % (13.2-15.2)
[2021-06-03 07:47] LABS: Blood Urea Nitrogen 31 mg/dL (9-20); Calcium 6.8 mg/dL (8.4-10.2); Hemolysis Index 145
[2021-06-03 08:01] LABS: BUN/Creatinine Ratio 52
--- NOTE | 2021-06-03 08:45 | Progress Note ---
Assessment and Plan Assessment and Plan # Encephalopathy -81 ys old male admitted on 05/26/21 with change mentation and and pneumonia pt. required intubation and sedation -Initially treated with abs -had renal failure with prerenal azotemia # creatinine 5.4 --- 2.4 -Hypernatremia NA# 162-- 142 -Initially was sedated now off sedation since 06/01 -COVID-19 is negative == finding from hx and exam is suggestive encephalopathy multifactorial -seizure can not be excluded -hypoxemia can not be excluded -suggest EEG -Off sedation -MRI brain #Sepsis -Sepsis protocol: CBC, CMP, chest x-ray, urinalysis, IV fluid resuscitation therapy, monitor urine output every shift, maintain mean arterial pressure gre ater than or equal to 65, serial lactic acid level, # Acute hypoxemic respiratory failure -Patient intubated and ambulatory support. Wean vent as tolerated, sedation holiday, daily ABG, spontaneous breathing trial daily, daily chest x-ray. # Suspected 2019-nCoV infection -Coronavirus protocol: IV antibiotic therapy, IV steroid therapy, vitamin C therapy, vitamin D therapy, zinc therapy, -Harrell Virus PCR is negative # Acute kidney injury (SIXTO) with acute tubular necrosis (ATN) -IV fluid resuscitation therapy, BMP, repeat BMP in a.m., supportive care. Nephrology team consulted -Creatinine 5.4---0.7. # Hypernatremia -IV fluid resuscitation therapy, repeat BMP, repeat BMP in a.m. nephrology team consulted -162---142 # Pneumonia -Pneumonia protocol: Chest x-ray, CBC, CMP, IV antibiotic therapy, supplemental oxygen, pulse oximetry, # UTI (urinary tract infection) -CBC, CMP, IV antibiotic therapy, blood culture. # DVT prophylaxis -SCD to bilateral lower extremities while in bed, prophylactic anticoagulation # Advance care planning -Disease education conducted, care plan discussed, diagnosis discussed, prognosis discussed, patient is full code, patient family knowledges un derstanding and agree with care plan as well as quarded prognosis PLAN 1-OFF sedation 2- MRI brain is pending 3-EEG is pending 4- Treat underlying infection 5- Correct electrolytes abn. will follow The high probability of a clinically significant, sudden or life threatening deterioration of the [cardiac, neuro, renal, ID, respiratory] system(s) required my full and direct attention, intervention and personal management. The aggregate critical care time was [30] minutes. [x] Data Review and interpretation [x] Patient assessment and monitoring of vital signs [x] Documentation [x] Medication orders and management Subjective Date of service: 06/03/21 Principal diagnosis: Ac. hypoxemic resp failure; CAP; Ac. encephalopathy; SIXTO; Sepsis; PUI COVID Interval history: status is unchanged he is off sedation family information is noted MRI brain and EEG are pending Objective - Vital Sign Vital Signs - 12hr 06/02/21 06/02/21 06/02/21 21:00 21:30 22:00 Temperature Pulse Rate 90 83 82 Respiratory 27 H 27 H 22 Rate Blood Pressure 125/64 125/64 126/61 O2 Sat by Pulse 99 100 100 Oximetry 06/02/21 06/02/21 06/02/21 22:06 23:00 23:20 Temperature Pulse Rate 80 85 91 H Respiratory 23 25 H Rate Blood Pressure 126/61 125/63 125/63 O2 Sat by Pulse 100 100 100 Oximetry 06/03/21 06/03/21 06/03/21 00:00 01:00 02:00 Temperature Pulse Rate 89 91 H 93 H Respiratory 24 27 H 29 H Rate Blood Pressure 112/58 122/62 129/65 O2 Sat by Pulse 99 99 100 Oximetry 06/03/21 06/03/21 06/03/21 03:00 03:10 04:00 Temperature 99.8 F H Pulse Rate 88 82 94 H Respiratory 23 26 H Rate Blood Pressure 119/64 119/64 131/65 O2 Sat by Pulse 100 100 99 Oximetry 06/03/21 06/03/21 06/03/21 05:00 06:00 07:00 Temperature Pulse Rate 94 H 96 H 93 H Respiratory 22 26 H 25 H Rate Blood Pressure 127/66 121/71 126/68 O2 Sat by Pulse 100 100 92 Oximetry 06/03/21 07:28 Temperature Pulse Rate 96 H Respiratory Rate Blood Pressure 126/68 O2 Sat by Pulse 100 Oximetry - General Apperance Constitutional: comfortable - EENT EENT: PERRL, mucous membranes moist - Respiratory Respiratory: lungs clear, rhonchi - Cardiovascular Cardiovascular: regular rate, normal S1, normal S2 Extremities: no peripheral edema bilat, no clubbing, cyanosis - Gastrointestinal Gastrointestinal: normoactive bowel sounds - Integumentary Integumentary: normal - Neurologic Cranial nerve examination: PERRL, EOMI, intact Speech examination: other (intubated) Detailed motor examination: other (no movment to strnal rub) - Laboratory Findings CBC and BMP: 06/03/21 06:20 06/03/21 06:20 Abnormal Lab Findings: Abnormal Labs 05/26/21 05/26/21 05/26/21 17:08 17:08 17:08 WBC RBC Hgb Hct MCV MCH MCHC 31 L RDW 16.2 H Plt Count 80 L Seg Neuts % (Manual) Lymphocytes % (Manual) Seg Neutrophils # Man Lymphocytes # (Manual) Monocytes # (Manual) APTT 42.4 H D-Dimer 8255.81 H ABG pH POC ABG pCO2 POC ABG pO2 ABG Hemoglobin ABG Oxyhemoglobin ABG Sodium ABG Chloride ABG Glucose Carboxyhemoglobin Sodium 180 H* Potassium Chloride 140 H Carbon Dioxide 21 L BUN 118 H Creatinine 5.4 H Glucose 133 H POC Glucose Lactic Acid Calcium 8.1 L Phosphorus Magnesium Ferritin AST 97 H ALT 71 H Alkaline Phosphatase 138 H Lactate Dehydrogenase 550 H Troponin T 0.038 H C-Reactive Protein 4.20 H Albumin 3.3 L Triglycerides 150 H HDL Cholesterol 24 L Arterial Blood Glucose Arterial Blood Ionized Calcium Urine WBC (Auto) Urine Creatinine Salicylates Acetaminophen 05/26/21 05/26/21 05/26/21 17:08 17:08 17:08 WBC RBC Hgb Hct MCV MCH MCHC RDW Plt Count Seg Neuts % (Manual) Lymphocytes % (Manual) Seg Neutrophils # Man Lymphocytes # (Manual) Monocytes # (Manual) APTT D-Dimer ABG pH POC ABG pCO2 POC ABG pO2 ABG Hemoglobin ABG Oxyhemoglobin ABG Sodium ABG Chloride ABG Glucose Carboxyhemoglobin Sodium Potassium Chloride Carbon Dioxide BUN Creatinine Glucose POC Glucose Lactic Acid 3.90 H* Calcium Phosphorus Magnesium Ferritin 598.3 H AST ALT Alkaline Phosphatase Lactate Dehydrogenase Troponin T C-Reactive Protein Albumin Triglycerides HDL Cholesterol Arterial Blood Glucose Arterial Blood Ionized Calcium Urine WBC (Auto) Urine Creatinine Salicylates Acetaminophen < 5.0 L 05/26/21 05/26/21 05/26/21 17:08 17:27 23:28 WBC RBC Hgb Hct MCV MCH MCHC RDW Plt Count Seg Neuts % (Manual) Lymphocytes % (Manual) Seg Neutrophils # Man Lymphocytes # (Manual) Monocytes # (Manual) APTT D-Dimer ABG pH POC ABG pCO2 POC ABG pO2 453.5 H ABG Hemoglobin 11.5 L ABG Oxyhemoglobin 98.7 H ABG Sodium 198.2 H ABG Chloride ABG Glucose 116 H Carboxyhemoglobin 0.3 L Sodium Potassium Chloride Carbon Dioxide BUN Creatinine Glucose POC Glucose 182 H Lactic Acid Calcium Phosphorus Magnesium Ferritin AST ALT Alkaline Phosphatase Lactate Dehydrogenase Troponin T C-Reactive Protein Albumin Triglycerides HDL Cholesterol Arterial Blood Glucose 116 H Arterial Blood Ionized Calcium Urine WBC (Auto) Urine Creatinine Salicylates < 0.3 L Acetaminophen 05/26/21 05/26/21 05/27/21 Unknown Unknown 01:58 WBC RBC Hgb Hct MCV MCH MCHC RDW Plt Count Seg Neuts % (Manual) Lymphocytes % (Manual) Seg Neutrophils # Man Lymphocytes # (Manual) Monocytes # (Manual) APTT D-Dimer ABG pH POC ABG pCO2 POC ABG pO2 ABG Hemoglobin ABG Oxyhemoglobin ABG Sodium ABG Chloride ABG Glucose Carboxyhemoglobin Sodium Potassium Chloride Carbon Dioxide BUN Creatinine Glucose POC Glucose Lactic Acid 2.90 H* Calcium Phosphorus Magnesium Ferritin AST ALT Alkaline Phosphatase Lactate Dehydrogenase Troponin T C-Reactive Protein Albumin Triglycerides HDL Cholesterol Arterial Blood Glucose Arterial Blood Ionized Calcium Urine WBC (Auto) 16.0 H Urine Creatinine 51.6 H Salicylates Acetaminophen 05/27/21 05/27/21 05/27/21 02:00 02:00 03:19 WBC 27.1 H RBC Hgb 11.1 L Hct MCV MCH 27 L MCHC 31 L RDW 16.1 H Plt Count 62 L Seg Neuts % (Manual) 93.0 H Lymphocytes % (Manual) 3.0 L Seg Neutrophils # Man 25.2 H Lymphocytes # (Manual) 0.8 L Monocytes # (Manual) 1.1 H APTT D-Dimer ABG pH POC ABG pCO2 31.7 L POC ABG pO2 79.5 L ABG Hemoglobin 10.9 L ABG Oxyhemoglobin ABG Sodium 181.4 H ABG Chloride ABG Glucose 276 H Carboxyhemoglobin 0.1 L Sodium 180 H* Potassium Chloride 140 H Carbon Dioxide 19 L BUN 100 H Creatinine 4.3 H Glucose 272 H POC Glucose Lactic Acid Calcium 7.0 L Phosphorus 5.00 H Magnesium Ferritin AST 66 H ALT 64 H Alkaline Phosphatase Lactate Dehydrogenase Troponin T C-Reactive Protein Albumin 2.9 L Triglycerides HDL Cholesterol Arterial Blood Glucose 276 H Arterial Blood Ionized Calcium 4.1 L Urine WBC (Auto) Urine Creatinine Salicylates Acetaminophen 05/27/21 05/27/21 05/27/21 08:22 08:22 12:08 WBC RBC Hgb Hct MCV MCH MCHC RDW Plt Count Seg Neuts % (Manual) Lymphocytes % (Manual) Seg Neutrophils # Man Lymphocytes # (Manual) Monocytes # (Manual) APTT D-Dimer ABG pH POC ABG pCO2 POC ABG pO2 ABG Hemoglobin ABG Oxyhemoglobin ABG Sodium ABG Chloride ABG Glucose Carboxyhemoglobin Sodium 179 H* Potassium Chloride > 139 H Carbon Dioxide 21 L 19 L BUN 103 H 105 H Creatinine 4.2 H 4.2 H Glucose 271 H 217 H POC Glucose Lactic Acid 2.20 H* Calcium 7.3 L 7.0 L Phosphorus Magnesium Ferritin AST ALT Alkaline Phosphatase Lactate Dehydrogenase Troponin T C-Reactive Protein Albumin Triglycerides HDL Cholesterol Arterial Blood Glucose Arterial Blood Ionized Calcium Urine WBC (Auto) Urine Creatinine Salicylates Acetaminophen 05/27/21 05/27/21 05/27/21 12:14 18:03 23:15 WBC RBC Hgb Hct MCV MCH MCHC RDW Plt Count Seg Neuts % (Manual) Lymphocytes % (Manual) Seg Neutrophils # Man Lymphocytes # (Manual) Monocytes # (Manual) APTT D-Dimer ABG pH POC ABG pCO2 POC ABG pO2 ABG Hemoglobin ABG Oxyhemoglobin ABG Sodium ABG Chloride ABG Glucose Carboxyhemoglobin Sodium Potassium Chloride Carbon Dioxide BUN Creatinine Glucose POC Glucose 184 H 183 H 191 H Lactic Acid Calcium Phosphorus Magnesium Ferritin AST ALT Alkaline Phosphatase Lactate Dehydrogenase Troponin T C-Reactive Protein Albumin Triglycerides HDL Cholesterol Arterial Blood Glucose Arterial Blood Ionized Calcium Urine WBC (Auto) Urine Creatinine Salicylates Acetaminophen 05/28/21 05/28/21 05/28/21 03:19 05:15 08:47 WBC RBC Hgb Hct MCV MCH MCHC RDW Plt Count Seg Neuts % (Manual) Lymphocytes % (Manual) Seg Neutrophils # Man Lymphocytes # (Manual) Monocytes # (Manual) APTT D-Dimer ABG pH POC ABG pCO2 29.6 L POC ABG pO2 115.2 H ABG Hemoglobin 10.2 L ABG Oxyhemoglobin ABG Sodium 153.6 H ABG Chloride 129.0 H ABG Glucose 215 H Carboxyhemoglobin 0.3 L Sodium 159 H D Potassium Chloride 123.7 H Carbon Dioxide 20 L BUN 88 H Creatinine 2.9 H Glucose 177 H POC Glucose 184 H Lactic Acid Calcium 6.3 L Phosphorus Magnesium Ferritin AST ALT Alkaline Phosphatase Lactate Dehydrogenase Troponin T C-Reactive Protein Albumin Triglycerides HDL Cholesterol Arterial Blood Glucose 215 H Arterial Blood Ionized Calcium 3.7 L Urine WBC (Auto) Urine Creatinine Salicylates Acetaminophen 05/28/21 05/28/21 05/28/21 11:50 16:27 17:23 WBC RBC Hgb Hct MCV MCH MCHC RDW Plt Count Seg Neuts % (Manual) Lymphocytes % (Manual) Seg Neutrophils # Man Lymphocytes # (Manual) Monocytes # (Manual) APTT D-Dimer ABG pH POC ABG pCO2 POC ABG pO2 ABG Hemoglobin ABG Oxyhemoglobin ABG Sodium ABG Chloride ABG Glucose Carboxyhemoglobin Sodium 154 H Potassium Chloride Carbon Dioxide BUN Creatinine Glucose POC Glucose 130 H 113 H Lactic Acid Calcium Phosphorus Magnesium Ferritin AST ALT Alkaline Phosphatase Lactate Dehydrogenase Troponin T C-Reactive Protein Albumin Triglycerides HDL Cholesterol Arterial Blood Glucose Arterial Blood Ionized Calcium Urine WBC (Auto) Urine Creatinine Salicylates Acetaminophen 05/28/21 05/29/21 05/29/21 23:28 02:59 04:15 WBC RBC Hgb Hct MCV MCH MCHC RDW Plt Count Seg Neuts % (Manual) Lymphocytes % (Manual) Seg Neutrophils # Man Lymphocytes # (Manual) Monocytes # (Manual) APTT D-Dimer ABG pH 7.481 H POC ABG pCO2 24.6 L POC ABG pO2 ABG Hemoglobin 10.6 L ABG Oxyhemoglobin ABG Sodium 149.5 H ABG Chloride 122.0 H ABG Glucose 129 H Carboxyhemoglobin 0.3 L Sodium 159 H Potassium Chloride 124.0 H Carbon Dioxide 21 L BUN 88 H Creatinine 2.4 H Glucose 136 H POC Glucose 139 H Lactic Acid Calcium 6.8 L Phosphorus Magnesium Ferritin AST ALT Alkaline Phosphatase Lactate Dehydrogenase Troponin T C-Reactive Protein Albumin Triglycerides HDL Cholesterol Arterial Blood Glucose 129 H Arterial Blood Ionized Calcium 3.8 L Urine WBC (Auto) Urine Creatinine Salicylates Acetaminophen 05/29/21 05/29/21 05/29/21 05:13 15:35 18:05 WBC RBC Hgb Hct MCV MCH MCHC RDW Plt Count Seg Neuts % (Manual) Lymphocytes % (Manual) Seg Neutrophils # Man Lymphocytes # (Manual) Monocytes # (Manual) APTT D-Dimer ABG pH POC ABG pCO2 POC ABG pO2 ABG Hemoglobin ABG Oxyhemoglobin ABG Sodium ABG Chloride ABG Glucose Carboxyhemoglobin Sodium 160 H Potassium Chloride 124.8 H Carbon Dioxide 20 L BUN 83 H Creatinine 1.9 H Glucose 147 H POC Glucose 138 H 141 H Lactic Acid Calcium 7.1 L Phosphorus Magnesium Ferritin AST ALT Alkaline Phosphatase Lactate Dehydrogenase Troponin T C-Reactive Protein Albumin Triglycerides HDL Cholesterol Arterial Blood Glucose Arterial Blood Ionized Calcium Urine WBC (Auto) Urine Creatinine Salicylates Acetaminophen 05/29/21 05/30/21 05/30/21 23:22 01:20 04:33 WBC RBC Hgb Hct MCV MCH MCHC RDW Plt Count Seg Neuts % (Manual) Lymphocytes % (Manual) Seg Neutrophils # Man Lymphocytes # (Manual) Monocytes # (Manual) APTT D-Dimer ABG pH 7.484 H POC ABG pCO2 24.6 L POC ABG pO2 131.2 H ABG Hemoglobin 11.7 L ABG Oxyhemoglobin 98.1 H ABG Sodium 155.7 H ABG Chloride 126.0 H ABG Glucose 191 H Carboxyhemoglobin 0.1 L Sodium 162 H* Potassium Chloride 129.0 H Carbon Dioxide 19 L BUN 89 H Creatinine 2.1 H Glucose 190 H POC Glucose 160 H Lactic Acid Calcium 7.4 L Phosphorus Magnesium Ferritin AST ALT Alkaline Phosphatase Lactate Dehydrogenase Troponin T C-Reactive Protein Albumin Triglycerides HDL Cholesterol Arterial Blood Glucose 191 H Arterial Blood Ionized Calcium 4.1 L Urine WBC (Auto) Urine Creatinine Salicylates Acetaminophen 05/30/21 05/30/21 05/30/21 05:21 15:25 17:59 WBC RBC Hgb Hct MCV MCH MCHC RDW Plt Count Seg Neuts % (Manual) Lymphocytes % (Manual) Seg Neutrophils # Man Lymphocytes # (Manual) Monocytes # (Manual) APTT D-Dimer ABG pH POC ABG pCO2 POC ABG pO2 ABG Hemoglobin ABG Oxyhemoglobin ABG Sodium ABG Chloride ABG Glucose Carboxyhemoglobin Sodium 161 H* Potassium 3.4 L Chloride 131.7 H Carbon Dioxide 18 L BUN 77 H Creatinine 1.5 H Glucose 200 H POC Glucose 169 H 147 H Lactic Acid Calcium 7.2 L Phosphorus Magnesium Ferritin AST ALT Alkaline Phosphatase Lactate Dehydrogenase Troponin T C-Reactive Protein Albumin Triglycerides HDL Cholesterol Arterial Blood Glucose Arterial Blood Ionized Calcium Urine WBC (Auto) Urine Creatinine Salicylates Acetaminophen 05/30/21 05/31/2105/31/21 23:34 04:33 05:29 WBC RBC Hgb Hct MCV MCH MCHC RDW Plt Count Seg Neuts % (Manual) Lymphocytes % (Manual) Seg Neutrophils # Man Lymphocytes # (Manual) Monocytes # (Manual) APTT D-Dimer ABG pH POC ABG pCO2 POC ABG pO2 ABG Hemoglobin ABG Oxyhemoglobin ABG Sodium ABG Chloride ABG Glucose Carboxyhemoglobin Sodium 154 H Potassium Chloride 123.6 H Carbon Dioxide 19 L BUN 52 H Creatinine Glucose 139 H POC Glucose 153 H 132 H Lactic Acid Calcium 7.1 L Phosphorus 2.30 L Magnesium Ferritin AST ALT Alkaline Phosphatase Lactate Dehydrogenase Troponin T C-Reactive Protein Albumin Triglycerides HDL Cholesterol Arterial Blood Glucose Arterial Blood Ionized Calcium Urine WBC (Auto) Urine Creatinine Salicylates Acetaminophen 05/31/21 05/31/21 05/31/21 11:47 15:23 17:18 WBC RBC Hgb Hct MCV MCH MCHC RDW Plt Count Seg Neuts % (Manual) Lymphocytes % (Manual) Seg Neutrophils # Man Lymphocytes # (Manual) Monocytes # (Manual) APTT D-Dimer ABG pH POC ABG pCO2 POC ABG pO2 ABG Hemoglobin ABG Oxyhemoglobin ABG Sodium ABG Chloride ABG Glucose Carboxyhemoglobin Sodium 149 H Potassium 3.4 L D Chloride 117.7 H Carbon Dioxide 21 L BUN 40 H Creatinine Glucose 139 H POC Glucose 114 H 108 H Lactic Acid Calcium 7.0 L Phosphorus Magnesium Ferritin AST ALT Alkaline Phosphatase Lactate Dehydrogenase Troponin T C-Reactive Protein Albumin Triglycerides HDL Cholesterol Arterial Blood Glucose Arterial Blood Ionized Calcium Urine WBC (Auto) Urine Creatinine Salicylates Acetaminophen 05/31/21 06/01/21 06/01/21 23:13 04:00 05:50 WBC RBC Hgb Hct MCV MCH MCHC RDW Plt Count Seg Neuts % (Manual) Lymphocytes % (Manual) Seg Neutrophils # Man Lymphocytes # (Manual) Monocytes # (Manual) APTT D-Dimer ABG pH 7.555 H POC ABG pCO2 27.6 L POC ABG pO2 65.6 L ABG Hemoglobin 9.2 L ABG Oxyhemoglobin ABG Sodium ABG Chloride 111.0 H ABG Glucose 143 H Carboxyhemoglobin 0.1 L Sodium Potassium Chloride Carbon Dioxide BUN Creatinine Glucose POC Glucose 126 H 121 H Lactic Acid Calcium Phosphorus Magnesium Ferritin AST ALT Alkaline Phosphatase Lactate Dehydrogenase Troponin T C-Reactive Protein Albumin Triglycerides HDL Cholesterol Arterial Blood Glucose 143 H Arterial Blood Ionized Calcium 3.7 L Urine WBC (Auto) Urine Creatinine Salicylates Acetaminophen 06/01/21 06/01/21 06/01/21 10:10 10:10 11:35 WBC 17.6 H RBC Hgb Hct MCV MCH 27 L MCHC RDW Plt Count 105 L Seg Neuts % (Manual) Lymphocytes % (Manual) Seg Neutrophils # Man Lymphocytes # (Manual) Monocytes # (Manual) APTT D-Dimer ABG pH POC ABG pCO2 POC ABG pO2 ABG Hemoglobin ABG Oxyhemoglobin ABG Sodium ABG Chloride ABG Glucose Carboxyhemoglobin Sodium Potassium 3.5 L Chloride Carbon Dioxide BUN 30 H Creatinine Glucose 137 H POC Glucose 112 H Lactic Acid Calcium 7.1 L Phosphorus 1.80 L D Magnesium 1.40 L Ferritin AST ALT Alkaline Phosphatase Lactate Dehydrogenase Troponin T C-Reactive Protein Albumin Triglycerides HDL Cholesterol Arterial Blood Glucose Arterial Blood Ionized Calcium Urine WBC (Auto) Urine Creatinine Salicylates Acetaminophen 06/01/21 06/02/21 06/02/21 17:41 05:24 09:50 WBC 17.1 H RBC 3.14 L Hgb 8.5 L D Hct 25.6 L D MCV 82 L MCH 27 L MCHC RDW Plt Count 124 L Seg Neuts % (Manual) Lymphocytes % (Manual) Seg Neutrophils # Man Lymphocytes # (Manual) Monocytes # (Manual) APTT D-Dimer ABG pH POC ABG pCO2 POC ABG pO2 ABG Hemoglobin ABG Oxyhemoglobin ABG Sodium ABG Chloride ABG Glucose Carboxyhemoglobin Sodium Potassium Chloride 108.1 H Carbon Dioxide BUN 31 H Creatinine 0.7 L Glucose 128 H POC Glucose 125 H Lactic Acid Calcium 6.1 L Phosphorus Magnesium Ferritin AST ALT Alkaline Phosphatase Lactate Dehydrogenase Troponin T C-Reactive Protein Albumin Triglycerides HDL Cholesterol Arterial Blood Glucose Arterial Blood Ionized Calcium Urine WBC (Auto) Urine Creatinine Salicylates Acetaminophen 06/02/21 06/03/21 06/03/21 18:43 00:25 05:43 WBC RBC Hgb Hct MCV MCH MCHC RDW Plt Count Seg Neuts % (Manual) Lymphocytes % (Manual) Seg Neutrophils # Man Lymphocytes # (Manual) Monocytes # (Manual) APTT D-Dimer ABG pH POC ABG pCO2 POC ABG pO2 ABG Hemoglobin ABG Oxyhemoglobin ABG Sodium ABG Chloride ABG Glucose Carboxyhemoglobin Sodium Potassium Chloride Carbon Dioxide BUN Creatinine Glucose POC Glucose 111 H 124 H 127 H Lactic Acid Calcium Phosphorus Magnesium Ferritin AST ALT Alkaline Phosphatase Lactate Dehydrogenase Troponin T C-Reactive Protein Albumin Triglycerides HDL Cholesterol Arterial Blood Glucose Arterial Blood Ionized Calcium Urine WBC (Auto) Urine Creatinine Salicylates Acetaminophen 06/03/21 06/03/21 06:20 06:20 WBC 19.4 H RBC 3.24 L Hgb 8.7 L Hct 26.7 L MCV 82 L MCH 27 L MCHC RDW Plt Count Seg Neuts % (Manual) Lymphocytes % (Manual) Seg Neutrophils # Man Lymphocytes # (Manual) Monocytes # (Manual) APTT D-Dimer ABG pH POC ABG pCO2 POC ABG pO2 ABG Hemoglobin ABG Oxyhemoglobin ABG Sodium ABG Chloride ABG Glucose Carboxyhemoglobin Sodium Potassium Chloride 108.1 H Carbon Dioxide BUN 31 H Creatinine 0.6 L Glucose 126 H POC Glucose Lactic Acid Calcium 6.8 L Phosphorus Magnesium Ferritin AST ALT Alkaline Phosphatase Lactate Dehydrogenase Troponin T C-Reactive Protein Albumin Triglycerides HDL Cholesterol Arterial Blood Glucose Arterial Blood Ionized Calcium Urine WBC (Auto) Urine Creatinine Salicylates Acetaminophen
[2021-06-03] MEDS: HEPARIN 5,000 UNIT/1 ML VIAL SUB-Q SCH ×2 (09:25→21:19)
[2021-06-03] MEDS: SENNOSIDES/DOCUSATE SODIUM 8.6/50 MG TAB FEEDTUBE SCH ×2 (09:25→21:20)
[2021-06-03] MEDS: FAMOTIDINE 20 MG TAB PO SCH (09:25)
[2021-06-03] MEDS: amLODIPine 5 MG TAB PO SCH (09:25)
[2021-06-03] MEDS: TAMSULOSIN 0.4 MG CAP PO SCH (09:25)
[2021-06-03] MEDS: CALCIUM CARBONATE 1250 MG/5 ML ORAL LIQD FEEDTUBE SCH ×2 (09:26→21:19)
--- NOTE | 2021-06-03 09:50 | Progress Note ---
Assessment and Plan 1. Acute kidney injury: Vasomotor SIXTO in the volume depletion / dehydration. CT abdomen negative for hydro. Monitor renal function. Creatinine level is better. Non-oliguric. Avoid nephrotoxic agents. Meds dosage based on GFR. 2. FEN: Hypernatremia, improved, monitor. Metabolic acidosis, improved, monitor. Replete Calcium. Monitor lytes. 3. Acute respiratory failure with hypoxia: 2/2 PNA. Intubated, on vent. 4. Pneumonia, POA: Covid test negative. Follow cultures. 5. Elevated Troponin: Monitor. 6. Hypertension: Monitor BP. Meds as appropriate. 7. 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 Followed by Neuro. Prognosis guarded. Subjective: Patient was seen and examined at the bedside. Examination: General appearance: well-developed, thin built, appears stated age, intubated, on vent HEENT: ATNC, pupils equal Neck: supple Respiratory: coarse breath sounds Cardiology: regular, S1S2, no murmur Gastrointestinal: soft, bowel sounds heard, not tender Integumentary: no rash, warm and dry Neurologic: slight grimace Ext: no edema : Cast catheter Subjective Date of service: 06/03/21 Principal diagnosis: Ac. hypoxemic resp failure; CAP; Ac. encephalopathy; SIXTO; Sepsis; PUI COVID Objective - Vital Signs Vital signs: Vital Signs - 12hr 06/02/21 06/02/21 06/02/21 22:00 22:06 23:00 Temperature Pulse Rate 82 80 85 Pulse Rate [ From Monitor] Respiratory 22 23 25 H Rate Blood Pressure 126/61 126/61 125/63 O2 Sat by Pulse 100 100 100 Oximetry 06/02/21 06/03/21 06/03/21 23:20 00:00 01:00 Temperature Pulse Rate 91 H 89 91 H Pulse Rate [ From Monitor] Respiratory 24 27 H Rate Blood Pressure 125/63 112/58 122/62 O2 Sat by Pulse 100 99 99 Oximetry 06/03/21 06/03/21 06/03/21 02:00 03:00 03:10 Temperature Pulse Rate 93 H 88 82 Pulse Rate [ From Monitor] Respiratory 29 H 23 Rate Blood Pressure 129/65 119/64 119/64 O2 Sat by Pulse 100 100 100 Oximetry 06/03/21 06/03/21 06/03/21 04:00 05:00 06:00 Temperature 99.8 F H Pulse Rate 94 H 94 H 96 H Pulse Rate [ From Monitor] Respiratory 26 H 22 26 H Rate Blood Pressure 131/65 127/66 121/71 O2 Sat by Pulse 99 100 100 Oximetry 06/03/21 06/03/21 06/03/21 07:00 07:28 08:00 Temperature Pulse Rate 93 H 96 H 93 H Pulse Rate [ 91 H From Monitor] Respiratory 25 H 27 H Rate Blood Pressure 126/68 126/68 133/64 O2 Sat by Pulse 92 100 100 Oximetry 06/03/21 06/03/21 09:00 09:25 Temperature Pulse Rate 91 H Pulse Rate [ From Monitor] Respiratory 23 Rate Blood Pressure 120/60 120/60 O2 Sat by Pulse 68 L Oximetry - Lab 06/03/21 06:20 06/03/21 06:20 Most recent lab results ABG pH 7.555 (7.320-7.450) H 06/01/21 04:00 ABG O2 Saturation 94.5 (0-100) 06/01/21 04:00 Calcium 6.8 mg/dL (8.4-10.2) L 06/03/21 06:20 Phosphorus 2.50 mg/dL (2.5-4.5) 06/03/21 06:20 Magnesium 2.10 mg/dL (1.7-2.3) 06/02/21 05:24 Urine Creatinine 51.6 mg/dL (0.1-20.0) H 05/26/21 Unknown Urine Sodium 96 mmol/L 05/26/21 Unknown Medications & Allergies - Medications Allergies/Adverse Reactions: Allergies No Known Allergies Allergy (Verified 05/29/21 18:46) Home Medications: Home Medications Medication Instructions Recorded Confirmed Last Taken Type No Known Home Medications [No 05/26/21 05/26/21 Unknown History Reported Home Medications] Active Medications: Generic Name Dose Route Start Last Admin Trade Name Freq PRN Reason Stop Dose Admin Acetaminophen 650 mg 05/30/21 08:30 05/30/21 09:33 Acetaminophen 325 Mg/10.15 Ml Oral Liqd Unit Dose FEEDTUBE 650 mg Q6H PRN Administration Pain 1 -3, fever >100.5 Albuterol 2.5 mg 05/26/21 18:34 Albuterol 2.5 Mg/3 Ml Nebu IH Q3HRT PRN Shortness Of Breath Amlodipine Besylate 5 mg 06/03/21 10:00 06/03/21 09:25 Amlodipine 5 Mg Tab PO 5 mg QDAY ONDINA Administration Lipase/Protease/Amylase 1 each 05/28/21 08:24 Lipase 10,500/Protease 25,000/Amylase 43,750 (Units) Dr De Leon FEEDTUBE PRN PRN For Clogged Feeding Tube Calcium Carbonate/Glycine 1,250 mg 06/03/21 10:00 06/03/21 09:26 Calcium Carbonate 1250 Mg/5 Ml Oral Liqd FEEDTUBE 06/05/21 09:59 1,250 mg BID ONDINA Administration Famotidine 20 mg 05/28/21 10:00 06/03/21 09:25 Famotidine 20 Mg Tab PO 20 mg DAILY ONDINA Administration Finasteride 5 mg 06/03/21 10:00 Finasteride 5 Mg Tab PO QDAY ONDINA Heparin Sodium (Porcine) 5,000 unit 05/26/21 22:00 06/03/21 09:25 Heparin 5,000 Unit/1 Ml Vial SUB-Q 5,000 unit Q12HR ONDINA Administration Hydrophilic Ointment 1 applic 05/26/21 17:02 Lip Therapy Vaseline TP Q2HR PRN Dry Lips Propofol 1,000 mg in 100 mls @ 1.361 mls/hr 05/30/21 06:00 05/31/21 08:50 Diprivan 10 Mg/Ml IV 0 mcg/kg/min TITR ONDINA 0 mls/hr Titration Protocol 5 MCG/KG/MIN Multi-Ingred Cream/Lotion/Oil/Oint 1 applic 05/26/21 17:02 Mineral Oil/Petrolatum, White Ophth Oint 3.5 Gm OU Q4HR PRN Dry Eye(s) Senna/Docusate Sodium 1 tab 05/26/21 22:00 06/03/21 09:25 Sennosides/Docusate Sodium 8.6/50 Mg Tab FEEDTUBE 1 tab BID ONDINA Administration Simple Syrup 15 ml 05/28/21 08:24 Simple Syrup 15 Ml FEEDTUBE PRN PRN Hypoglycemia Simple Syrup 30 ml 05/28/21 08:24 Simple Syrup 15 Ml FEEDTUBE PRN PRN Hypoglycemia Sodium Bicarbonate 325 mg 05/28/21 08:24 Sodium Bicarbonate 325 Mg Tab FEEDTUBE PRN PRN For Clogged Feeding Tube Sodium Chloride 10 ml 05/26/21 22:00 06/02/21 21:11 Sodium Chloride 0.9% 10 Ml Flush Syringe IV 10 ml BID ONDINA Administration Sodium Chloride 10 ml 05/26/21 18:34 Sodium Chloride 0.9% 10 Ml Flush Syringe IV PRN PRN LINE FLUSH Tamsulosin HCl 0.8 mg 05/29/21 12:00 06/03/21 09:25 Tamsulosin 0.4 Mg Cap PO 0.8 mg QDAY ONDINA Administration
--- NOTE | 2021-06-03 09:52 | XRay Report ---
CHEST 1 VIEW 06/03/2021 8:05 AM INDICATION / CLINICAL INFORMATION: resp failure. COMPARISON: 06/02/2021 FINDINGS: SUPPORT DEVICES: Stable, satisfactory device positioning. HEART / MEDIASTINUM: No significant abnormality. LUNGS / PLEURA: Mild interstitial prominence in bilateral lungs appears unchanged since prior examina tion. There is a nodular density within the right upper lung measuring 9 mm. This was not as easily s een on prior exams. ADDITIONAL FINDINGS: No significant additional findings. IMPRESSION: 1. Right upper lung pulmonary nodule measuring 9 mm. This was not as well-seen on prior exams. Follow -up recommended. 2. No other significant change. Signer Name: Aldo River MD Signed: 06/03/2021 9:47 AM Workstation Name: [employer]
[2021-06-03] MEDS ORDERED: CALCIUM GLUCONATE 2,000 MG in SODIUM CHLORIDE 0.9% 100 ML IV ONE (11:00)
[2021-06-03] MEDS: FINASTERIDE 5 MG TAB PO SCH (11:04)
--- NOTE | 2021-06-03 11:44 | Progress Note ---
<MARIOBHUMIKAJamaal - Last Filed: 06/03/21 12:27> Assessment and Plan Assessment and plan: This 81-year-old male with hypertension and dementia admitted with acute hypoxic respiratory failure suspected, COVID-19 PUI, pneumonia, hypernatremia, volume depletion, urinary tract infection, toxic metabolic encephalopathy, SIXTO, sepsis Neuro: Acute metabolic encephalopathy -Aspiration/seizure precautions -Sedated with propofol while on mechanical ventilation, off for SBT -05/26 CT head shows no focal mass, hemorrhage, hydrocephalus or acute or large territorial infarct, mild to moderate mucosal thickening in the ethmoid with prior mastoidectomy noted on the right, vascular disease seen in the anterior and posterior circulation, moderate diffuse cerebral atrophy with anterior temporal lobe atrophy being the greatest, moderate to marked degree of hippocampal atrophy suggested bilaterally, suggestion of encephalomalacia in the inferior temporal lobe on the right as well as anterior temporal lobe with question prior branch infarct or trauma -Neurology consulted -06/02 EEG pending -06/02 MRI Brain pending CV: ?Hypertension, ? CAD, Elevated troponin -No recorded home medications -Amlodipine -Hydralazine as needed -Blood pressure monitoring per protocol -05/26 CT chest/abdomen/pelvis without contrast dense atherosclerotic calcification of the thoracic aorta distribution of the coronary vessels, scattered patchy ill-defined densities within the mid and lower lung zone, mild prominence of both ureters, dense atherosclerotic calcification along the abdominal aorta without evidence of aneurysm -Need to follow-up with PCP -Possibly NSTEMI in setting of SIXTO -Trend CE Respiratory: Acute hypoxemic respiratory failure -On mechanical ventilation -Wean mechanical ventilation as tolerated -VAP bundle -ABGs as needed -CXR daily for 7 days per protocol -Daily SBT -[facility] plans for trial extubation today FEN/GI: Acute kidney injury/ATN, Protein calorie malnutrition, Hypocalcemia -Presented with BUN/creatinine of 118/5.4 -Nephrology consulted, appreciate recommendations -Strict intake and output -Daily weights -Nephrotoxic medications -Renally dose medications -On tube feedings -SSI, Accu-Cheks every 6 -Nutrition consulted, patient recommendations -Started on oral calcium replacement supplements -Trend BMP : Urinary Retention -White placed for urinary retention -Flomax -Added Proscar ID/Heme: Sepsis, UTI, Bilateral PNA, Leukocytosis, Thrombocytopenia (resolved), Anemia -Presented with with tachycardia, febrile to 102.8 degrees Fahrenheit, acute hypoxic respiratory failure, acute kidney injury, pneumonia on imaging, pyuria -abx therapy -05/26 CT chest showed faint bilateral patchy pulmonary opacities suggestive of infectious process that is pneumonia -05/26 blood cultures x2 no growth after 5 days -05/26 sputum culture grew E. coli, Staph aureus (pansensitive) -05/26 urine culture with no growth after 48 hours -05/26 UA with pyuria -05/26 urine culture with no growth to date -05/31 blood cultures x2 in progress -s/p abx therapy -Transfuse for hgb <7 -Stool guiac pending -05/23 coag studies: PT 14, INR 1.03 -Trend CBC DVT/GI prophylaxis: Heparin subq, SCDs to bilateral LE while in bed, PPI Disposition: ICU Lines: white, PIVs The high probability of a clinically significant, sudden or life threatening deterioration of the [respiratory, renal and electrolyte] system(s) required my full and direct attention, intervention and personal management. The aggregate critical care time was [35] minutes. This time is in addition to time spent performing reported procedures but includes the following: [x] Data Review and interpretation [x] Patient assessment and monitoring of vital signs [x] Documentation [x] Medication orders and management History Interval history: This 81-year-old male with hypertension and dementia who presents to [facility] ER on 05/26 with decreased responsiveness since 05/25 per family. Patient was placed on nasopharyngeal airway and bagged by EMS on route to [facility]. Upon arrival to emergency indices 05/27/2021. Patient with severe hypernatremia secondary to dehydration/vasomotor nephropathy. Continue IV fluid hydration per nephrology recommendations. Patient with a creatinine September 2019 of 0.7. On this admission patient was noted to have a creatinine of 5.4. Slightly improved today to 4.2. Etiology secondary to vasomotor nephropathy/acute kidney injury/volume depletion/dehydration. Follow-up urine studies. CT scan of the abdomen pelvis did not reveal any obstruction. CT chest revealed bilateral pulmonary opacities. Patient with elevated D-dimer that may be secondary to Covid coagulopathy. Consider VQ scan. Unable to perform CTA given renal insufficiency. Await pulmonary consultation 05/28/2021. Hyponatremia has improved to 159. Continue IV fluid hydration per nephrology recommendations. Creatinine has also improved to 2.9. No obstruction per CT scan. COVID-19 testing negative on 05/27/2021. Continue IV antibiotics for bilateral pneumonia and UTI. Follow-up blood and urine cultures. Consider ID consultation patient remains on mechanical ventilation but undergoing PSV trials. Patient currently with PSV with FiO2 of 30% PEEP of 6 and pressure support of 10. Continue vent weaning per pulmonary. 05/29/2021. Hypernatremia persists with sodium improving to 154 yesterday evening but now back to 159. Creatinine has improved to 2.4. Nephrology following.Continue current antibiotics for pneumonia and UTI. Consider CTA of chest for elevated D-dimer when creatinine back to baseline. Patient currently on AC mode ventilation rate of 16, tidal volume 450, FiO2 30% and PEEP of 6. 05/30/2021. Sodium remains elevated at 162 and creatinine elevated at 2.1. Continue free water with 300 mL every 4 hours. Nephrology held IV D5W. Resume IV fluids per nephrology recommendations. CT scan of the abdomen negative for hydronephrosis. Continue IV antibiotics. Patient remains on mechanical ventilation AC mode rate of 20, tidal volume 450, FiO2 40% and a PEEP of 6. 7/: Patient has hypernatremia improved to 149, this a.m. patient was noted to have a potassium of 4.5 and potassium and his D5 was discontinued and changed to D5W. This evening he was noted the patient had a potassium of 3.4 which was repleted. Patient was started to have hypophosphatemia today which was reple eddie. Antibiotics were escalated to's ceftriaxone for pansensitive E. coli patient received 7 days of therapy so repeat blood cultures were ordered. 06/01: CPAP trial yesterday lasted from 9am-5pm, will retry CPAP today. Replace Mg, Phos, K, DC IVF in setting of improved Na 06/02: Hypocalcemia today which was corrected. Given neuro status unchanged, Neuro consult requested who ordered MRI B and EEG. CPAP trial. drop in h/h, occult stool, coags, type and screen ordered. remove white, bladder scan and straight cath as needed 06/03: Hypocalcemia again today, started on PO Ca supplements, h/h stable from yesterday, MRI B pending, EEG completed, added proscar re RN needing to physically press on bladder for urine. Decrease in BP med. [facility] plans for trial extubation Hospitalist Physical - Constitutional Vitals: Temp Pulse Resp BP Pulse Ox 99.8 F H 95 H 29 H 112/70 100 06/03/21 04:00 06/03/21 11:00 06/03/21 11:00 06/03/21 11:00 06/03/21 11:00 General appearance: Present: no acute distress, other (Response to tactile stimuli) - EENT Eyes: Present: PERRL ENT: clear oral mucosa, dentition normal - Neck Neck: Present: normal ROM - Respiratory Respiratory effort: normal Respiratory: bilateral: CTA - Cardiovascular Rhythm: regular Heart Sounds: Present: S1 & S2. Absent: systolic murmur, diastolic murmur - Extremities Extremities: no ischemia, pulses intact, pulses symmetrical, normal temperature, normal color Extremity abnormal: edema - Peripheral Assessment Bilateral Hand Edema Degree: 1+ Capillary Refill: < 3 seconds Skin Temperature: Warm Peripheral Pulses: within normal limits - Abdominal General gastrointestinal: soft, non-tender, non-distended, normal bowel sounds - Integumentary Integumentary: Present: warm, dry - Psychiatric Psychiatric: other - Neurologic Neurologic: moves all extremities, other (Response to tactile stimuli) - Allied Health Allied health notes reviewed: nursing, RT, social work HEART Score - HEART Score Troponin: Troponin T 0.038 ng/mL (0.00-0.029) H 05/26/21 17:08 Results - Labs CBC & Chem 7: 06/03/21 06:20 06/03/21 06:20 Labs: Laboratory Last Values WBC 19.4 K/mm3 (4.5-11.0) H 06/03/21 06:20 RBC 3.24 M/mm3 (3.65-5.03) L 06/03/21 06:20 Hgb 8.7 gm/dl (11.8-15.2) L 06/03/21 06:20 Hct 26.7 % (35.5-45.6) L 06/03/21 06:20 MCV 82 fl (84-94) L 06/03/21 06:20 MCH 27 pg (28-32) L 06/03/21 06:20 MCHC 33 % (32-34) 06/03/21 06:20 RDW 14.2 % (13.2-15.2) 06/03/21 06:20 Plt Count 169 K/mm3 (140-440) 06/03/21 06:20 Lymph % (Auto) 30.3 % (13.4-35.0) 05/26/21 17:08 D[place]key % (Auto) 6.1 % (0.0-7.3) 05/26/21 17:08 Eos % (Auto) 1.0 % (0.0-4.3) 05/26/21 17:08 Baso % (Auto) 0.5 % (0.0-1.8) 05/26/21 17:08 Lymph # (Auto) 3.0 K/mm3 (1.2-5.4) 05/26/21 17:08 Dickey # (Auto) 0.6 K/mm3 (0.0-0.8) 05/26/21 17:08 Eos # (Auto) 0.1 K/mm3 (0.0-0.4) 05/26/21 17:08 Baso # (Auto) 0.1 K/mm3 (0.0-0.1) 05/26/21 17:08 Add Manual Diff Complete 05/27/21 02:00 Total Counted 100 05/27/21 02:00 Seg Neutrophils % Electric Lineman 05/27/21 02:00 Seg Neuts % (Manual) 93.0 % (40.0-70.0) H 05/27/21 02:00 Lymphocytes % (Manual) 3.0 % (13.4-35.0) L 05/27/21 02:00 Monocytes % (Manual) 4.0 % (0.0-7.3) 05/27/21 02:00 Nucleated RBC % Not Reportable 05/27/21 02:00 Seg Neutrophils # 6.1 K/mm3 (1.8-7.7) 05/26/21 17:08 Seg Neutrophils # Man 25.2 K/mm3 (1.8-7.7) H 05/27/21 02:00 Band Neutrophils # 0.0 K/mm3 05/27/21 02:00 Lymphocytes # (Manual) 0.8 K/mm3 (1.2-5.4) L 05/27/21 02:00 Abs React Lymphs (Man) 0.0 K/mm3 05/27/21 02:00 Monocytes # (Manual) 1.1 K/mm3 (0.0-0.8) H 05/27/21 02:00 Eosinophils # (Manual) 0.0 K/mm3 (0.0-0.4) 05/27/21 02:00 Basophils # (Manual) 0.0 K/mm3 (0.0-0.1) 05/27/21 02:00 Metamyelocytes # 0.0 K/mm3 05/27/21 02:00 Myelocytes # 0.0 K/mm3 05/27/21 02:00 Promyelocytes # 0.0 K/mm3 05/27/21 02:00 Blast Cells # 0.0 K/mm3 05/27/21 02:00 WBC Morphology Not Reportable 05/27/21 02:00 Hypersegmented Neuts Not Reportable 05/27/21 02:00 Hyposegmented Neuts Not Reportable 05/27/21 02:00 Hypogranular Neuts Not Reportable 05/27/21 02:00 Smudge Cells Not Reportable 05/27/21 02:00 Toxic Granulation Not Reportable 05/27/21 02:00 Toxic Vacuolation Not Reportable 05/27/21 02:00 Dohle Bodies Not Reportable 05/27/21 02:00 Pelger-Huet Anomaly Not Reportable 05/27/21 02:00 Daniel Rods Not Reportable 05/27/21 02:00 Platelet Estimate Not Reportable 05/27/21 02:00 Clumped Platelets Not Reportable 05/27/21 02:00 Plt Clumps, EDTA Not Reportable 05/27/21 02:00 Large Platelets Not Reportable 05/27/21 02:00 Giant Platelets Not Reportable 05/27/21 02:00 Platelet Satelliting Not Reportable 05/27/21 02:00 Plt Morphology Comment Not Reportable 05/27/21 02:00 RBC Morphology Normal 05/27/21 02:00 Dimorphic RBCs Not Reportable 05/27/21 02:00 Polychromasia Not Reportable 05/27/21 02:00 Hypochromasia Not Reportable 05/27/21 02:00 Poikilocytosis Not Reportable 05/27/21 02:00 Anisocytosis Not Reportable 05/27/21 02:00 Microcytosis Not Reportable 05/27/21 02:00 Macrocytosis Not Reportable 05/27/21 02:00 Spherocytes Not Reportable 05/27/21 02:00 Pappenheimer Bodies Not Reportable 05/27/21 02:00 Sickle Cells Not Reportable 05/27/21 02:00 Target Cells Not Reportable 05/27/21 02:00 Tear Drop Cells Not Reportable 05/27/21 02:00 Ovalocytes Not Reportable 05/27/21 02:00 Helmet Cells Not Reportable 05/27/21 02:00 [place] Bodies Not Reportable 05/27/21 02:00 [place] Rings Not Reportable 05/27/21 02:00 Bernard Cells Not Reportable 05/27/21 02:00 Bite Cells Not Reportable 05/27/21 02:00 Crenated Cell Not Reportable 05/27/21 02:00 Elliptocytes Not Reportable 05/27/21 02:00 Acanthocytes (Spur) Not Reportable 05/27/21 02:00 Rouleaux Not Reportable 05/27/21 02:00 Hemoglobin C Crystals Not Reportable 05/27/21 02:00 Schistocytes Not Reportable 05/27/21 02:00 Malaria parasites Not Reportable 05/27/21 02:00 Arik Bodies Not Reportable 05/27/21 02:00 Hem Pathologist Commnt No 05/27/21 02:00 PT 14.0 Sec. (12.2-14.9) 06/02/21 16:57 INR 1.03 (0.87-1.13) 06/02/21 16:57 APTT 42.4 Sec. (24.2-36.6) H 05/26/21 17:08 D-Dimer 8255.81 ng/mlDDU (0-234) H 05/26/21 17:08 ABG pH 7.555 (7.320-7.450) H 06/01/21 04:00 POC ABG pCO2 27.6 mmHg (32.0-48.0) L 06/01/21 04:00 POC ABG pO2 65.6 mmHg (83-108) L 06/01/21 04:00 POC ABG HCO3 23.9 06/01/21 04:00 ABG O2 Saturation 94.5 (0-100) 06/01/21 04:00 POC ABG Base Excess 2.0 06/01/21 04:00 ABG Hemoglobin 9.2 (12.0-17.5) L 06/01/21 04:00 ABG Oxyhemoglobin 94.1 (94-98) 06/01/21 04:00 ABG Methemoglobin 0.3 (0.0-1.5) 06/01/21 04:00 ABG Sodium 137.4 mmol/L (136.0-145.0) 06/01/21 04:00 ABG Potassium 3.5 mmol/L (3.40-4.50) 06/01/21 04:00 ABG Chloride 111.0 mmol/L (98-107) H 06/01/21 04:00 ABG Glucose 143 mg/dL (65-95) H 06/01/21 04:00 Carboxyhemoglobin 0.1 (0.5-1.5) L 06/01/21 04:00 FiO2 % 40.0 06/01/21 04:00 Sodium 144 mmol/L (137-145) 06/03/21 06:20 Potassium 4.0 mmol/L (3.6-5.0) 06/03/21 06:20 Chloride 108.1 mmol/L (98-107) H 06/03/21 06:20 Carbon Dioxide 26 mmol/L (22-30) 06/03/21 06:20 Anion Gap 14 mmol/L 06/03/21 06:20 BUN 31 mg/dL (9-20) H 06/03/21 06:20 Creatinine 0.6 mg/dL (0.8-1.3) L 06/03/21 06:20 Estimated GFR > 60 ml/min 06/03/21 06:20 BUN/Creatinine Ratio 52 % 06/03/21 06:20 Glucose 126 mg/dL (75-100) H 06/03/21 06:20 POC Glucose 127 mg/dL (70-105) H 06/03/21 05:43 Lactic Acid 1.60 mmol/L (0.7-2.0) 05/27/21 12:08 Calcium 6.8 mg/dL (8.4-10.2) L 06/03/21 06:20 Phosphorus 2.50 mg/dL (2.5-4.5) 06/03/21 06:20 Magnesium 2.10 mg/dL (1.7-2.3) 06/02/21 05:24 Ferritin 598.3 ng/mL (30.0-300.0) H 05/26/21 17:08 Total Bilirubin 0.50 mg/dL (0.1-1.2) 05/27/21 02:00 AST 66 units/L (5-40) H 05/27/21 02:00 ALT 64 units/L (7-56) H 05/27/21 02:00 Alkaline Phosphatase 126 units/L (35-129) 05/27/21 02:00 Ammonia 46.0 umol/L (25-60) 05/26/21 17:08 Lactate Dehydrogenase 550 units/L (91-180) H 05/26/21 17:08 Troponin T 0.038 ng/mL (0.00-0.029) H 05/26/21 17:08 C-Reactive Protein 4.20 mg/dL (0.00-1.30) H 05/26/21 17:08 Total Protein 6.6 g/dL (6.3-8.2) 05/27/21 02:00 Albumin 2.9 g/dL (3.9-5) L 05/27/21 02:00 Albumin/Globulin Ratio 0.8 % 05/27/21 02:00 Triglycerides 150 mg/dL (2-149) H 05/26/21 17:08 Cholesterol 145 mg/dL (50-199) 05/26/21 17:08 LDL Cholesterol Direct 84 mg/dL (50-130) 05/26/21 17:08 HDL Cholesterol 24 mg/dL (40-59) L 05/26/21 17:08 Cholesterol/HDL Ratio 6.04 % 05/26/21 17:08 Procalcitonin 0.29 ng/mL (<0.15) 05/26/21 17:08 TSH 0.342 mlU/mL (0.270-4.200) 05/26/21 17:08 Arterial Blood Glucose 143 mg/dL (65-95) H 06/01/21 04:00 Arterial Blood Ionized Calcium 3.7 mg/dL (4.6-5.3) L 06/01/21 04:00 Urine Color Yellow (Yellow) 05/26/21 Unknown Urine Turbidity Clear (Clear) 05/26/21 Unknown Urine pH 5.0 (5.0-7.0) 05/26/21 Unknown Ur Specific [place] 1.011 (1.003-1.030) 05/26/21 Unknown Urine Protein <15 mg/dl mg/dL (Negative) 05/26/21 Unknown Urine Glucose (UA) Neg mg/dL (Negative) 05/26/21 Unknown Urine Ketones Neg mg/dL (Negative) 05/26/21 Unknown Urine Blood Sm (Negative) 05/26/21 Unknown Urine Nitrite Neg (Negative) 05/26/21 Unknown Urine Bilirubin Neg (Negative) 05/26/21 Unknown Urine Urobilinogen < 2.0 mg/dL (<2.0) 05/26/21 Unknown Ur Leukocyte Esterase Neg (Negative) 05/26/21 Unknown Urine WBC (Auto) 16.0 /HPF (0.0-6.0) H 05/26/21 Unknown Urine RBC (Auto) 2.0 /HPF (0.0-6.0) 05/26/21 Unknown Urine Bacteria (Auto) 1+ /HPF (Negative) 05/26/21 Unknown Urine Osmolality 392 Mosm/kg 05/26/21 Unknown Urine Creatinine 51.6 mg/dL (0.1-20.0) H 05/26/21 Unknown Urine Sodium 96 mmol/L 05/26/21 Unknown Random Vancomycin 14.8 ug/mL (0-40.0) 05/30/21 08:29 Salicylates < 0.3 mg/dL (2.8-20.0) L 05/26/21 17:08 Acetaminophen < 5.0 ug/mL (10.0-30.0) L 05/26/21 17:08 Coronavirus (PCR) Negative (Negative) 05/27/21 Unknown Blood Type O POSITIVE 06/02/21 16:57 Antibody Screen Negative 06/02/21 16:57 Microbiology: Microbiology 05/31/21 15:23 Peripheral/Venous Blood Culture - Preliminary NO GROWTH AFTER 48 HOURS 05/31/21 15:23 Peripheral/Venous Blood Culture - Preliminary NO GROWTH AFTER 48 HOURS White/IV: Voiding Method Condom Catheter Active Medications - Current Medications Current Medications: Generic Name Dose Route Start Last Admin Trade Name Freq PRN Reason Stop Dose Admin Acetaminophen 650 mg 05/30/21 08:30 05/30/21 09:33 Acetaminophen 325 Mg/10.15 Ml Oral Liqd Unit Dose FEEDTUBE 650 mg Q6H PRN Administration Pain 1 -3, fever >100.5 Albuterol 2.5 mg 05/26/21 18:34 Albuterol 2.5 Mg/3 Ml Nebu IH Q3HRT PRN Shortness Of Breath Amlodipine Besylate 5 mg 06/03/21 10:00 06/03/21 09:25 Amlodipine 5 Mg Tab PO 5 mg QDAY ONDINA Administration Lipase/Protease/Amylase 1 each 05/28/21 08:24 Lipase 10,500/Protease 25,000/Amylase 43,750 (Units) Dr De Leon FEEDTUBE PRN PRN For Clogged Feeding Tube Calcium Carbonate/Glycine 1,250 mg 06/03/21 10:00 06/03/21 09:26 Calcium Carbonate 1250 Mg/5 Ml Oral Liqd FEEDTUBE 06/05/21 09:59 1,250 mg BID ONDINA Administration Famotidine 20 mg 05/28/21 10:00 06/03/21 09:25 Famotidine 20 Mg Tab PO 20 mg DAILY ONDINA Administration Finasteride 5 mg 06/03/21 10:00 06/03/21 11:04 Finasteride 5 Mg Tab PO 5 mg QDAY ONDINA Administration Heparin Sodium (Porcine) 5,000 unit 05/26/21 22:00 06/03/21 09:25 Heparin 5,000 Unit/1 Ml Vial SUB-Q 5,000 unit Q12HR ONDINA Administration Hydrophilic Ointment 1 applic 05/26/21 17:02 Lip Therapy Vaseline TP Q2HR PRN Dry Lips Propofol 1,000 mg in 100 mls @ 1.361 mls/hr 05/30/21 06:00 05/31/21 08:50 Diprivan 10 Mg/Ml IV 0 mcg/kg/min TITR ONDINA 0 mls/hr Titration Protocol 5 MCG/KG/MIN Multi-Ingred Cream/Lotion/Oil/Oint 1 applic 05/26/21 17:02 Mineral Oil/Petrolatum, White Ophth Oint 3.5 Gm OU Q4HR PRN Dry Eye(s) Senna/Docusate Sodium 1 tab 05/26/21 22:00 06/03/21 09:25 Sennosides/Docusate Sodium 8.6/50 Mg Tab FEEDTUBE 1 tab BID ONDINA Administration Simple Syrup 15 ml 05/28/21 08:24 Simple Syrup 15 Ml FEEDTUBE PRN PRN Hypoglycemia Simple Syrup 30 ml 05/28/21 08:24 Simple Syrup 15 Ml FEEDTUBE PRN PRN Hypoglycemia Sodium Bicarbonate 325 mg 05/28/21 08:24 Sodium Bicarbonate 325 Mg Tab FEEDTUBE PRN PRN For Clogged Feeding Tube Sodium Chloride 10 ml 05/26/21 22:00 06/02/21 21:11 Sodium Chloride 0.9% 10 Ml Flush Syringe IV 10 ml BID ONDINA Administration Sodium Chloride 10 ml 05/26/21 18:34 Sodium Chloride 0.9% 10 Ml Flush Syringe IV PRN PRN LINE FLUSH Tamsulosin HCl 0.8 mg 05/29/21 12:00 06/03/21 09:25 Tamsulosin 0.4 Mg Cap PO 0.8 mg QDAY ONDINA Administration Nutrition/Malnutrition Assess - Dietary Evaluation Nutrition/Malnutrition Findings: Nutrition Notes Start: 05/27/21 08:35 Freq: Status: Active Protocol: Document 06/02/21 12:34 (Rec: 06/02/21 12:36 [id number]) Nutrition Notes Initial or Follow up Reassessment Current Diagnosis Acute Kidney Injury,Sepsis, Hypertension,Respiratory Failure Other Pertinent Diagnosis UTI, encephalopathy, dehydration, COVID PUI Current Diet Glucerna 1.2 at 45 ml/hr Labs/Tests BUN 31 Cr 0.7 Ca 6.1 Pertinent Medications Reviewed Height 5 ft 2 in Weight 45.359 kg [place] Body Weight (kg) 53.63 BMI 18.3 Weight Status Underweight Subjective/Other Information FU for TF tolerance. Observed TF running at goal rate and pt tolerating. Percent of energy/protein needs met: 100%/100% Burn Absent Trauma Absent Current % PO Negligible Minimum of two criteria No physical signs of malnutrition #1 Nutrition Diagnosis Inadequate oral intake Diagnosis Progress(for reassessment Continues documentation) Is patient on ventilator? Yes Is Patient Ambulatory and/or Out of Bed No REE-([place] Jeor-confined to bed) [phone] Calculation Used for Recommendations [place] Jeor Additional Notes Protein: (1.2-2g/kg) 54-91g Fluid: 1 ml/kcal or per MD Nutrition Intervention Change Diet Order: Continue Nutrition Support: Glucerna 1.2 at 45 ml/hr Flush 300 ml q4h for hypernatermia. Once resolved, flush 75 ml q4h. Kcal 1,296 Protein (gm) 65 Fluid (mL) 869 Goal #1 Meet at least 75% of protein and energy needs via TF Anticipated Discharge Needs: Unable to determine at this time Follow-Up By: 06/04/21 Additional Comments FU for TF tolerance <JASWINDER LEDEZMA - Last Filed: 06/03/21 16:18> Assessment and Plan Assessment and plan: Agree with assessment and plan as outlined as above, I have personally examined the patient. Patient continues to be on the vent, possible plans to try to wean patient off of the vent. Family has been updated. Hospitalist Physical - Constitutional Vitals: Temp Pulse Resp BP Pulse Ox 99.8 F H 100 H 19 104/58 100 06/03/21 04:00 06/03/21 16:00 06/03/21 16:00 06/03/21 16:00 06/03/21 16:00 HEART Score - HEART Score Troponin: Troponin T 0.038 ng/mL (0.00-0.029) H 05/26/21 17:08 Results - Labs CBC & Chem 7: 06/03/21 06:20 06/03/21 06:20 Labs: Laboratory Last Values WBC 19.4 K/mm3 (4.5-11.0) H 06/03/21 06:20 RBC 3.24 M/mm3 (3.65-5.03) L 06/03/21 06:20 Hgb 8.7 gm/dl (11.8-15.2) L 06/03/21 06:20 Hct 26.7 % (35.5-45.6) L 06/03/21 06:20 MCV 82 fl (84-94) L 06/03/21 06:20 MCH 27 pg (28-32) L 06/03/21 06:20 MCHC 33 % (32-34) 06/03/21 06:20 RDW 14.2 % (13.2-15.2) 06/03/21 06:20 Plt Count 169 K/mm3 (140-440) 06/03/21 06:20 Lymph % (Auto) 30.3 % (13.4-35.0) 05/26/21 17:08 [place]ickey % (Auto) 6.1 % (0.0-7.3) 05/26/21 17:08 Eos % (Auto) 1.0 % (0.0-4.3) 05/26/21 17:08 Baso % (Auto) 0.5 % (0.0-1.8) 05/26/21 17:08 Lymph # (Auto) 3.0 K/mm3 (1.2-5.4) 05/26/21 17:08 [place]key # (Auto) 0.6 K/mm3 (0.0-0.8) 05/26/21 17:08 Eos # (Auto) 0.1 K/mm3 (0.0-0.4) 05/26/21 17:08 Baso # (Auto) 0.1 K/mm3 (0.0-0.1) 05/26/21 17:08 Add Manual Diff Complete 05/27/21 02:00 Total Counted 100 05/27/21 02:00 Seg Neutrophils % Electric Lineman 05/27/21 02:00 Seg Neuts % (Manual) 93.0 % (40.0-70.0) H 05/27/21 02:00 Lymphocytes % (Manual) 3.0 % (13.4-35.0) L 05/27/21 02:00 Monocytes % (Manual) 4.0 % (0.0-7.3) 05/27/21 02:00 Nucleated RBC % Not Reportable 05/27/21 02:00 Seg Neutrophils # 6.1 K/mm3 (1.8-7.7) 05/26/21 17:08 Seg Neutrophils # Man 25.2 K/mm3 (1.8-7.7) H 05/27/21 02:00 Band Neutrophils # 0.0 K/mm3 05/27/21 02:00 Lymphocytes # (Manual) 0.8 K/mm3 (1.2-5.4) L 05/27/21 02:00 Abs React Lymphs (Man) 0.0 K/mm3 05/27/21 02:00 Monocytes # (Manual) 1.1 K/mm3 (0.0-0.8) H 05/27/21 02:00 Eosinophils # (Manual) 0.0 K/mm3 (0.0-0.4) 05/27/21 02:00 Basophils # (Manual) 0.0 K/mm3 (0.0-0.1) 05/27/21 02:00 Metamyelocytes # 0.0 K/mm3 05/27/21 02:00 Myelocytes # 0.0 K/mm3 05/27/21 02:00 Promyelocytes # 0.0 K/mm3 05/27/21 02:00 Blast Cells # 0.0 K/mm3 05/27/21 02:00 WBC Morphology Not Reportable 05/27/21 02:00 Hypersegmented Neuts Not Reportable 05/27/21 02:00 Hyposegmented Neuts Not Reportable 05/27/21 02:00 Hypogranular Neuts Not Reportable 05/27/21 02:00 Smudge Cells Not Reportable 05/27/21 02:00 Toxic Granulation Not Reportable 05/27/21 02:00 Toxic Vacuolation Not Reportable 05/27/21 02:00 Dohle Bodies Not Reportable 05/27/21 02:00 Pelger-Huet Anomaly Not Reportable 05/27/21 02:00 Daniel Rods Not Reportable 05/27/21 02:00 Platelet Estimate Not Reportable 05/27/21 02:00 Clumped Platelets Not Reportable 05/27/21 02:00 Plt Clumps, EDTA Not Reportable 05/27/21 02:00 Large Platelets Not Reportable 05/27/21 02:00 Giant Platelets Not Reportable 05/27/21 02:00 Platelet Satelliting Not Reportable 05/27/21 02:00 Plt Morphology Comment Not Reportable 05/27/21 02:00 RBC Morphology Normal 05/27/21 02:00 Dimorphic RBCs Not Reportable 05/27/21 02:00 Polychromasia Not Reportable 05/27/21 02:00 Hypochromasia Not Reportable 05/27/21 02:00 Poikilocytosis Not Reportable 05/27/21 02:00 Anisocytosis Not Reportable 05/27/21 02:00 Microcytosis Not Reportable 05/27/21 02:00 Macrocytosis Not Reportable 05/27/21 02:00 Spherocytes Not Reportable 05/27/21 02:00 Pappenheimer Bodies Not Reportable 05/27/21 02:00 Sickle Cells Not Reportable 05/27/21 02:00 Target Cells Not Reportable 05/27/21 02:00 Tear Drop Cells Not Reportable 05/27/21 02:00 Ovalocytes Not Reportable 05/27/21 02:00 Helmet Cells Not Reportable 05/27/21 02:00 [place] Bodies Not Reportable 05/27/21 02:00 [place] Rings Not Reportable 05/27/21 02:00 [place] Cells Not Reportable 05/27/21 02:00 Bite Cells Not Reportable 05/27/21 02:00 Crenated Cell Not Reportable 05/27/21 02:00 Elliptocytes Not Reportable 05/27/21 02:00 Acanthocytes (Spur) Not Reportable 05/27/21 02:00 Rouleaux Not Reportable 05/27/21 02:00 Hemoglobin C Crystals Not Reportable 05/27/21 02:00 Schistocytes Not Reportable 05/27/21 02:00 Malaria parasites Not Reportable 05/27/21 02:00 [place] Bodies Not Reportable 05/27/21 02:00 Hem Pathologist Commnt No 05/27/21 02:00 PT 14.0 Sec. (12.2-14.9) 06/02/21 16:57 INR 1.03 (0.87-1.13) 06/02/21 16:57 APTT 42.4 Sec. (24.2-36.6) H 05/26/21 17:08 D-Dimer 8255.81 ng/mlDDU (0-234) H 05/26/21 17:08 ABG pH 7.555 (7.320-7.450) H 06/01/21 04:00 POC ABG pCO2 27.6 mmHg (32.0-48.0) L 06/01/21 04:00 POC ABG pO2 65.6 mmHg (83-108) L 06/01/21 04:00 POC ABG HCO3 23.9 06/01/21 04:00 ABG O2 Saturation 94.5 (0-100) 06/01/21 04:00 POC ABG Base Excess 2.0 06/01/21 04:00 ABG Hemoglobin 9.2 (12.0-17.5) L 06/01/21 04:00 ABG Oxyhemoglobin 94.1 (94-98) 06/01/21 04:00 ABG Methemoglobin 0.3 (0.0-1.5) 06/01/21 04:00 ABG Sodium 137.4 mmol/L (136.0-145.0) 06/01/21 04:00 ABG Potassium 3.5 mmol/L (3.40-4.50) 06/01/21 04:00 ABG Chloride 111.0 mmol/L (98-107) H 06/01/21 04:00 ABG Glucose 143 mg/dL (65-95) H 06/01/21 04:00 Carboxyhemoglobin 0.1 (0.5-1.5) L 06/01/21 04:00 FiO2 % 40.0 06/01/21 04:00 Sodium 144 mmol/L (137-145) 06/03/21 06:20 Potassium 4.0 mmol/L (3.6-5.0) 06/03/21 06:20 Chloride 108.1 mmol/L (98-107) H 06/03/21 06:20 Carbon Dioxide 26 mmol/L (22-30) 06/03/21 06:20 Anion Gap 14 mmol/L 06/03/21 06:20 BUN 31 mg/dL (9-20) H 06/03/21 06:20 Creatinine 0.6 mg/dL (0.8-1.3) L 06/03/21 06:20 Estimated GFR > 60 ml/min 06/03/21 06:20 BUN/Creatinine Ratio 52 % 06/03/21 06:20 Glucose 126 mg/dL (75-100) H 06/03/21 06:20 POC Glucose 102 mg/dL (70-105) 06/03/21 11:46 Lactic Acid 1.60 mmol/L (0.7-2.0) 05/27/21 12:08 Calcium 6.8 mg/dL (8.4-10.2) L 06/03/21 06:20 Phosphorus 2.50 mg/dL (2.5-4.5) 06/03/21 06:20 Magnesium 2.10 mg/dL (1.7-2.3) 06/02/21 05:24 Ferritin 598.3 ng/mL (30.0-300.0) H 05/26/21 17:08 Total Bilirubin 0.50 mg/dL (0.1-1.2) 05/27/21 02:00 AST 66 units/L (5-40) H 05/27/21 02:00 ALT 64 units/L (7-56) H 05/27/21 02:00 Alkaline Phosphatase 126 units/L (35-129) 05/27/21 02:00 Ammonia 46.0 umol/L (25-60) 05/26/21 17:08 Lactate Dehydrogenase 550 units/L (91-180) H 05/26/21 17:08 Troponin T 0.038 ng/mL (0.00-0.029) H 05/26/21 17:08 C-Reactive Protein 4.20 mg/dL (0.00-1.30) H 05/26/21 17:08 Total Protein 6.6 g/dL (6.3-8.2) 05/27/21 02:00 Albumin 2.9 g/dL (3.9-5) L 05/27/21 02:00 Albumin/Globulin Ratio 0.8 % 05/27/21 02:00 Triglycerides 150 mg/dL (2-149) H 05/26/21 17:08 Cholesterol 145 mg/dL (50-199) 05/26/21 17:08 LDL Cholesterol Direct 84 mg/dL (50-130) 05/26/21 17:08 HDL Cholesterol 24 mg/dL (40-59) L 05/26/21 17:08 Cholesterol/HDL Ratio 6.04 % 05/26/21 17:08 Procalcitonin 0.29 ng/mL (<0.15) 05/26/21 17:08 TSH 0.342 mlU/mL (0.270-4.200) 05/26/21 17:08 Arterial Blood Glucose 143 mg/dL (65-95) H 06/01/21 04:00 Arterial Blood Ionized Calcium 3.7 mg/dL (4.6-5.3) L 06/01/21 04:00 Urine Color Yellow (Yellow) 05/26/21 Unknown Urine Turbidity Clear (Clear) 05/26/21 Unknown Urine pH 5.0 (5.0-7.0) 05/26/21 Unknown Ur Specific [place] 1.011 (1.003-1.030) 05/26/21 Unknown Urine Protein <15 mg/dl mg/dL (Negative) 05/26/21 Unknown Urine Glucose (UA) Neg mg/dL (Negative) 05/26/21 Unknown Urine Ketones Neg mg/dL (Negative) 05/26/21 Unknown Urine Blood Sm (Negative) 05/26/21 Unknown Urine Nitrite Neg (Negative) 05/26/21 Unknown Urine Bilirubin Neg (Negative) 05/26/21 Unknown Urine Urobilinogen < 2.0 mg/dL (<2.0) 05/26/21 Unknown Ur Leukocyte Esterase Neg (Negative) 05/26/21 Unknown Urine WBC (Auto) 16.0 /HPF (0.0-6.0) H 05/26/21 Unknown Urine RBC (Auto) 2.0 /HPF (0.0-6.0) 05/26/21 Unknown Urine Bacteria (Auto) 1+ /HPF (Negative) 05/26/21 Unknown Urine Osmolality 392 Mosm/kg 05/26/21 Unknown Urine Creatinine 51.6 mg/dL (0.1-20.0) H 05/26/21 Unknown Urine Sodium 96 mmol/L 05/26/21 Unknown Random Vancomycin 14.8 ug/mL (0-40.0) 05/30/21 08:29 Salicylates < 0.3 mg/dL (2.8-20.0) L 05/26/21 17:08 Acetaminophen < 5.0 ug/mL (10.0-30.0) L 05/26/21 17:08 Coronavirus (PCR) Negative (Negative) 05/27/21 Unknown Blood Type O POSITIVE 06/02/21 16:57 Antibody Screen Negative 06/02/21 16:57 Microbiology: Microbiology 05/31/21 15:23 Peripheral/Venous Blood Culture - Preliminary NO GROWTH AFTER 48 HOURS 05/31/21 15:23 Peripheral/Venous Blood Culture - Preliminary NO GROWTH AFTER 48 HOURS White/IV: Voiding Method Condom Catheter Active Medications - Current Medications Current Medications: Generic Name Dose Route Start Last Admin Trade Name Freq PRN Reason Stop Dose Admin Acetaminophen 650 mg 05/30/21 08:30 05/30/21 09:33 Acetaminophen 325 Mg/10.15 Ml Oral Liqd Unit Dose FEEDTUBE 650 mg Q6H PRN Administration Pain 1 -3, fever >100.5 Albuterol 2.5 mg 05/26/21 18:34 Albuterol 2.5 Mg/3 Ml Nebu IH Q3HRT PRN Shortness Of Breath Amlodipine Besylate 5 mg 06/03/21 10:00 06/03/21 09:25 Amlodipine 5 Mg Tab PO 5 mg QDAY ONDINA Administration Lipase/Protease/Amylase 1 each 05/28/21 08:24 Lipase 10,500/Protease 25,000/Amylase 43,750 (Units) Dr [place] Leon FEEDTUBE PRN PRN For Clogged Feeding Tube Calcium Carbonate/Glycine 1,250 mg 06/03/21 10:00 06/03/21 09:26 Calcium Carbonate 1250 Mg/5 Ml Oral Liqd FEEDTUBE 06/05/21 09:59 1,250 mg BID ONDINA Administration Famotidine 20 mg 05/28/21 10:00 06/03/21 09:25 Famotidine 20 Mg Tab PO 20 mg DAILY ONDINA Administration Finasteride 5 mg 06/03/21 10:00 06/03/21 11:04 Finasteride 5 Mg Tab PO 5 mg QDAY ONDINA Administration Heparin Sodium (Porcine) 5,000 unit 05/26/21 22:00 06/03/21 09:25 Heparin 5,000 Unit/1 Ml Vial SUB-Q 5,000 unit Q12HR ONDINA Administration Hydrophilic Ointment 1 applic 05/26/21 17:02 Lip Therapy Vaseline TP Q2HR PRN Dry Lips Propofol 1,000 mg in 100 mls @ 1.361 mls/hr 05/30/21 06:00 05/31/21 08:50 Diprivan 10 Mg/Ml IV 0 mcg/kg/min TITR ONDINA 0 mls/hr Titration Protocol 5 MCG/KG/MIN Multi-Ingred Cream/Lotion/Oil/Oint 1 applic 05/26/21 17:02 Mineral Oil/Petrolatum, White Ophth Oint 3.5 Gm OU Q4HR PRN Dry Eye(s) Senna/Docusate Sodium 1 tab 05/26/21 22:00 06/03/21 09:25 Sennosides/Docusate Sodium 8.6/50 Mg Tab FEEDTUBE 1 tab BID ONDINA Administration Simple Syrup 15 ml 05/28/21 08:24 Simple Syrup 15 Ml FEEDTUBE PRN PRN Hypoglycemia Simple Syrup 30 ml 05/28/21 08:24 Simple Syrup 15 Ml FEEDTUBE PRN PRN Hypoglycemia Sodium Bicarbonate 325 mg 05/28/21 08:24 Sodium Bicarbonate 325 Mg Tab FEEDTUBE PRN PRN For Clogged Feeding Tube Sodium Chloride 10 ml 05/26/21 22:00 06/02/21 21:11 Sodium Chloride 0.9% 10 Ml Flush Syringe IV 10 ml BID ONDINA Administration Sodium Chloride 10 ml 05/26/21 18:34 Sodium Chloride 0.9% 10 Ml Flush Syringe IV PRN PRN LINE FLUSH Tamsulosin HCl 0.8 mg 05/29/21 12:00 06/03/21 09:25 Tamsulosin 0.4 Mg Cap PO 0.8 mg QDAY ONDINA Administration Nutrition/Malnutrition Assess - Dietary Evaluation Nutrition/Malnutrition Findings: Nutrition Notes Start: 05/27/21 08:35 Freq: Status: Active Protocol: Document 06/02/21 12:34 (Rec: 06/02/21 12:36 [id number]) Nutrition Notes Initial or Follow up Reassessment Current Diagnosis Acute Kidney Injury,Sepsis, Hypertension,Respiratory Failure Other Pertinent Diagnosis UTI, encephalopathy, dehydration, COVID PUI Current Diet Glucerna 1.2 at 45 ml/hr Labs/Tests BUN 31 Cr 0.7 Ca 6.1 Pertinent Medications Reviewed Height 5 ft 2 in Weight 45.359 kg [place] Body Weight (kg) 53.63 BMI 18.3 Weight Status Underweight Subjective/Other Information FU for TF tolerance. Observed TF running at goal rate and pt tolerating. Percent of energy/protein needs met: 100%/100% Burn Absent Trauma Absent Current % PO Negligible Minimum of two criteria No physical signs of malnutrition #1 Nutrition Diagnosis Inadequate oral intake Diagnosis Progress(for reassessment Continues documentation) Is patient on ventilator? Yes Is Patient Ambulatory and/or Out of Bed No REE-([place]-St Jeor-confined to bed) [phone] Calculation Used for Recommendations [facility] Additional Notes Protein: (1.2-2g/kg) 54-91g Fluid: 1 ml/kcal or per MD Nutrition Intervention Change Diet Order: Continue Nutrition Support: Glucerna 1.2 at 45 ml/hr Flush 300 ml q4h for hypernatermia. Once resolved, flush 75 ml q4h. Kcal 1,296 Protein (gm) 65 Fluid (mL) 869 Goal #1 Meet at least 75% of protein and energy needs via TF Anticipated Discharge Needs: Unable to determine at this time Follow-Up By: 06/04/21 Additional Comments FU for TF tolerance
--- NOTE | 2021-06-03 13:01 | Progress Note ---
Assessment and Plan Acute hypoxemic respiratory failure on MVS Bilateral pneumonia (CAP) Acute toxic metabolic encephalopathy Severe sepsis Acute kidney injury Hypertensive urgency Elevated serum D-dimer Adult failure to thrive Mild metabolic acidosis Hyperchloremia Lactic acidosis Elevated serum inflammatory markers to include ferritin, D-dimers, and LDH PUI COVID-19 infection - follow MRI - trial of extubation if no seizures or other major pathology post neurology evaluation - keep set rate at 12/min - continue care as below otherwise; - continue to wean supplemental oxygen for target O2 sat's > 90% acutely - VAP bundle addressed - continue lung protective strategies - continue Daily SAT and SBT assessment as tolerated - continue bronchodilators with pulmonary hygiene per RT - wean per pulmonary driven protocols otherwise - continue accuchecks with glycemic control per SSI (While critically ill target blood glucose of 140-180 mg/dL; avoid hypoglycemia) - sedation prn for target RASS 0 to -1 - avoid nephrotoxins, renally dose all medications - continue to avoid benzodiazepine's, reduce the possibility of delirium - complete AB's per ID rec's - prn analgesia per CPOT score - Maintenance of sleep-wake cycle, avoid delirium - continue enteral nutritional support at goal rate as tolerated - G.I. & VTE prophylaxis - PT/OT/ROM exercises - continue mobility protocols for pressure ulcer prophylaxis - Monitor hemodynamics closely - continue other care per attending / other consultants - discharge planning ongoing concurrently COVID SPECIFIC INTERVENTIONS - COVID-19 PCR negative .... Re-evaluate in am & prn CONDITION: CRITICAL PROGNOSIS: GUARDED CODE STATUS: FULL CODE The high probability of a clinically significant, sudden or life-threatening deterioration of the [respiratory, cardiovascular, renal & neurologic] system(s) required my full and direct attention, intervention and personal management. The aggregate critical care time was [35] minutes without overlap. Time includes spent on; [x] Data Review and interpretation [x] Patient assessment and monitoring of vital signs [x] Documentation [x] Medication orders and management Subjective Date of service: 06/03/21 Principal diagnosis: Ac. hypoxemic resp failure; CAP; Ac. encephalopathy; SIXTO; Sepsis; PUI COVID Interval history: Patient is seen today for: Ac. hypoxemic resp failure; CAP; Acute encephalopathy; SIXTO; Severe sepsis; PUI COVID-19 infection Seen and examined at bedside; 24hour events reviewed; nursing and respiratory care staff consulted; no adverse overnight events reported to me; resting in bed; remains on MVS; for MRI today; AMS is persistent and weaning tenuously at times; no emesis or overt aspiration; afebrile and no seizures Objective Vital Signs - 12hr 06/03/21 06/03/21 06/03/21 02:00 03:00 03:10 Temperature Pulse Rate 93 H 88 82 Pulse Rate [ From Monitor] Respiratory 29 H 23 Rate Blood Pressure 129/65 119/64 119/64 O2 Sat by Pulse 100 100 100 Oximetry 06/03/21 06/03/21 06/03/21 04:00 05:00 06:00 Temperature 99.8 F H Pulse Rate 94 H 94 H 96 H Pulse Rate [ From Monitor] Respiratory 26 H 22 26 H Rate Blood Pressure 131/65 127/66 121/71 O2 Sat by Pulse 99 100 100 Oximetry 06/03/21 06/03/21 06/03/21 07:00 07:28 08:00 Temperature Pulse Rate 93 H 96 H 93 H Pulse Rate [ 91 H From Monitor] Respiratory 25 H 27 H Rate Blood Pressure 126/68 126/68 133/64 O2 Sat by Pulse 92 100 100 Oximetry 06/03/21 06/03/21 06/03/21 09:00 09:25 10:00 Temperature Pulse Rate 91 H 93 H Pulse Rate [ From Monitor] Respiratory 23 27 H Rate Blood Pressure 120/60 120/60 119/65 O2 Sat by Pulse 68 L Oximetry 06/03/21 11:00 Temperature Pulse Rate 95 H Pulse Rate [ From Monitor] Respiratory 29 H Rate Blood Pressure 112/70 O2 Sat by Pulse 100 Oximetry Constitutional: no acute distress, other (orally intuabted to MVS, + mild dys- synchrony, ETT (7.5) 23 cm at the lip) Eyes: non-icteric ENT: oropharynx moist Neck: supple, no lymphadenopathy, no JVD Effort: mildly labored Ascultation: Bilateral: diminished breath sounds, rhonchi (scant) Percussion: Bilateral: not dull Cardiovascular: regular rate and rhythm, other (S1,S2) Gastrointestinal: normoactive bowel sounds Integumentary: normal Extremities: no cyanosis, no edema, pulses normal, no ischemia or petechiae Neurologic: pupils equal and round, other (encephalopathic) Psychiatric: other (unable to assess) CBC and BMP: 06/03/21 06:20 06/03/21 06:20 ABG, PT/INR, D-dimer: ABG ABG pH 7.555 (7.320-7.450) H 06/01/21 04:00 POC ABG pCO2 27.6 mmHg (32.0-48.0) L 06/01/21 04:00 POC ABG pO2 65.6 mmHg (83-108) L 06/01/21 04:00 POC ABG HCO3 23.9 06/01/21 04:00 ABG O2 Saturation 94.5 (0-100) 06/01/21 04:00 PT/INR, D-dimer PT 14.0 Sec. (12.2-14.9) 06/02/21 16:57 INR 1.03 (0.87-1.13) 06/02/21 16:57 D-Dimer 8255.81 ng/mlDDU (0-234) H 05/26/21 17:08 Abnormal lab findings: Abnormal Labs 05/26/21 05/26/21 05/26/21 17:08 17:08 17:08 WBC RBC Hgb Hct MCV MCH MCHC 31 L RDW 16.2 H Plt Count 80 L Seg Neuts % (Manual) Lymphocytes % (Manual) Seg Neutrophils # Man Lymphocytes # (Manual) Monocytes # (Manual) APTT 42.4 H D-Dimer 8255.81 H ABG pH POC ABG pCO2 POC ABG pO2 ABG Hemoglobin ABG Oxyhemoglobin ABG Sodium ABG Chloride ABG Glucose Carboxyhemoglobin Sodium 180 H* Potassium Chloride 140 H Carbon Dioxide 21 L BUN 118 H Creatinine 5.4 H Glucose 133 H POC Glucose Lactic Acid Calcium 8.1 L Phosphorus Magnesium Ferritin AST 97 H ALT 71 H Alkaline Phosphatase 138 H Lactate Dehydrogenase 550 H Troponin T 0.038 H C-Reactive Protein 4.20 H Albumin 3.3 L Triglycerides 150 H HDL Cholesterol 24 L Arterial Blood Glucose Arterial Blood Ionized Calcium Urine WBC (Auto) Urine Creatinine Salicylates Acetaminophen 05/26/21 05/26/21 05/26/21 17:08 17:08 17:08 WBC RBC Hgb Hct MCV MCH MCHC RDW Plt Count Seg Neuts % (Manual) Lymphocytes % (Manual) Seg Neutrophils # Man Lymphocytes # (Manual) Monocytes # (Manual) APTT D-Dimer ABG pH POC ABG pCO2 POC ABG pO2 ABG Hemoglobin ABG Oxyhemoglobin ABG Sodium ABG Chloride ABG Glucose Carboxyhemoglobin Sodium Potassium Chloride Carbon Dioxide BUN Creatinine Glucose POC Glucose Lactic Acid 3.90 H* Calcium Phosphorus Magnesium Ferritin 598.3 H AST ALT Alkaline Phosphatase Lactate Dehydrogenase Troponin T C-Reactive Protein Albumin Triglycerides HDL Cholesterol Arterial Blood Glucose Arterial Blood Ionized Calcium Urine WBC (Auto) Urine Creatinine Salicylates Acetaminophen < 5.0 L 05/26/21 05/26/21 05/26/21 17:08 17:27 23:28 WBC RBC Hgb Hct MCV MCH MCHC RDW Plt Count Seg Neuts % (Manual) Lymphocytes % (Manual) Seg Neutrophils # Man Lymphocytes # (Manual) Monocytes # (Manual) APTT D-Dimer ABG pH POC ABG pCO2 POC ABG pO2 453.5 H ABG Hemoglobin 11.5 L ABG Oxyhemoglobin 98.7 H ABG Sodium 198.2 H ABG Chloride ABG Glucose 116 H Carboxyhemoglobin 0.3 L Sodium Potassium Chloride Carbon Dioxide BUN Creatinine Glucose POC Glucose 182 H Lactic Acid Calcium Phosphorus Magnesium Ferritin AST ALT Alkaline Phosphatase Lactate Dehydrogenase Troponin T C-Reactive Protein Albumin Triglycerides HDL Cholesterol Arterial Blood Glucose 116 H Arterial Blood Ionized Calcium Urine WBC (Auto) Urine Creatinine Salicylates < 0.3 L Acetaminophen 05/26/21 05/26/21 05/27/21 Unknown Unknown 01:58 WBC RBC Hgb Hct MCV MCH MCHC RDW Plt Count Seg Neuts % (Manual) Lymphocytes % (Manual) Seg Neutrophils # Man Lymphocytes # (Manual) Monocytes # (Manual) APTT D-Dimer ABG pH POC ABG pCO2 POC ABG pO2 ABG Hemoglobin ABG Oxyhemoglobin ABG Sodium ABG Chloride ABG Glucose Carboxyhemoglobin Sodium Potassium Chloride Carbon Dioxide BUN Creatinine Glucose POC Glucose Lactic Acid 2.90 H* Calcium Phosphorus Magnesium Ferritin AST ALT Alkaline Phosphatase Lactate Dehydrogenase Troponin T C-Reactive Protein Albumin Triglycerides HDL Cholesterol Arterial Blood Glucose Arterial Blood Ionized Calcium Urine WBC (Auto) 16.0 H Urine Creatinine 51.6 H Salicylates Acetaminophen 05/27/21 05/27/21 05/27/21 02:00 02:00 03:19 WBC 27.1 H RBC Hgb 11.1 L Hct MCV MCH 27 L MCHC 31 L RDW 16.1 H Plt Count 62 L Seg Neuts % (Manual) 93.0 H Lymphocytes % (Manual) 3.0 L Seg Neutrophils # Man 25.2 H Lymphocytes # (Manual) 0.8 L Monocytes # (Manual) 1.1 H APTT D-Dimer ABG pH POC ABG pCO2 31.7 L POC ABG pO2 79.5 L ABG Hemoglobin 10.9 L ABG Oxyhemoglobin ABG Sodium 181.4 H ABG Chloride ABG Glucose 276 H Carboxyhemoglobin 0.1 L Sodium 180 H* Potassium Chloride 140 H Carbon Dioxide 19 L BUN 100 H Creatinine 4.3 H Glucose 272 H POC Glucose Lactic Acid Calcium 7.0 L Phosphorus 5.00 H Magnesium Ferritin AST 66 H ALT 64 H Alkaline Phosphatase Lactate Dehydrogenase Troponin T C-Reactive Protein Albumin 2.9 L Triglycerides HDL Cholesterol Arterial Blood Glucose 276 H Arterial Blood Ionized Calcium 4.1 L Urine WBC (Auto) Urine Creatinine Salicylates Acetaminophen 05/27/21 05/27/21 05/27/21 08:22 08:22 12:08 WBC RBC Hgb Hct MCV MCH MCHC RDW Plt Count Seg Neuts % (Manual) Lymphocytes % (Manual) Seg Neutrophils # Man Lymphocytes # (Manual) Monocytes # (Manual) APTT D-Dimer ABG pH POC ABG pCO2 POC ABG pO2 ABG Hemoglobin ABG Oxyhemoglobin ABG Sodium ABG Chloride ABG Glucose Carboxyhemoglobin Sodium 179 H* Potassium Chloride > 139 H Carbon Dioxide 21 L 19 L BUN 103 H 105 H Creatinine 4.2 H 4.2 H Glucose 271 H 217 H POC Glucose Lactic Acid 2.20 H* Calcium 7.3 L 7.0 L Phosphorus Magnesium Ferritin AST ALT Alkaline Phosphatase Lactate Dehydrogenase Troponin T C-Reactive Protein Albumin Triglycerides HDL Cholesterol Arterial Blood Glucose Arterial Blood Ionized Calcium Urine WBC (Auto) Urine Creatinine Salicylates Acetaminophen 05/27/21 05/27/21 05/27/21 12:14 18:03 23:15 WBC RBC Hgb Hct MCV MCH MCHC RDW Plt Count Seg Neuts % (Manual) Lymphocytes % (Manual) Seg Neutrophils # Man Lymphocytes # (Manual) Monocytes # (Manual) APTT D-Dimer ABG pH POC ABG pCO2 POC ABG pO2 ABG Hemoglobin ABG Oxyhemoglobin ABG Sodium ABG Chloride ABG Glucose Carboxyhemoglobin Sodium Potassium Chloride Carbon Dioxide BUN Creatinine Glucose POC Glucose 184 H 183 H 191 H Lactic Acid Calcium Phosphorus Magnesium Ferritin AST ALT Alkaline Phosphatase Lactate Dehydrogenase Troponin T C-Reactive Protein Albumin Triglycerides HDL Cholesterol Arterial Blood Glucose Arterial Blood Ionized Calcium Urine WBC (Auto) Urine Creatinine Salicylates Acetaminophen 05/28/21 05/28/21 05/28/21 03:19 05:15 08:47 WBC RBC Hgb Hct MCV MCH MCHC RDW Plt Count Seg Neuts % (Manual) Lymphocytes % (Manual) Seg Neutrophils # Man Lymphocytes # (Manual) Monocytes # (Manual) APTT D-Dimer ABG pH POC ABG pCO2 29.6 L POC ABG pO2 115.2 H ABG Hemoglobin 10.2 L ABG Oxyhemoglobin ABG Sodium 153.6 H ABG Chloride 129.0 H ABG Glucose 215 H Carboxyhemoglobin 0.3 L Sodium 159 H D Potassium Chloride 123.7 H Carbon Dioxide 20 L BUN 88 H Creatinine 2.9 H Glucose 177 H POC Glucose 184 H Lactic Acid Calcium 6.3 L Phosphorus Magnesium Ferritin AST ALT Alkaline Phosphatase Lactate Dehydrogenase Troponin T C-Reactive Protein Albumin Triglycerides HDL Cholesterol Arterial Blood Glucose 215 H Arterial Blood Ionized Calcium 3.7 L Urine WBC (Auto) Urine Creatinine Salicylates Acetaminophen 05/28/21 05/28/21 05/28/21 11:50 16:27 17:23 WBC RBC Hgb Hct MCV MCH MCHC RDW Plt Count Seg Neuts % (Manual) Lymphocytes % (Manual) Seg Neutrophils # Man Lymphocytes # (Manual) Monocytes # (Manual) APTT D-Dimer ABG pH POC ABG pCO2 POC ABG pO2 ABG Hemoglobin ABG Oxyhemoglobin ABG Sodium ABG Chloride ABG Glucose Carboxyhemoglobin Sodium 154 H Potassium Chloride Carbon Dioxide BUN Creatinine Glucose POC Glucose 130 H 113 H Lactic Acid Calcium Phosphorus Magnesium Ferritin AST ALT Alkaline Phosphatase Lactate Dehydrogenase Troponin T C-Reactive Protein Albumin Triglycerides HDL Cholesterol Arterial Blood Glucose Arterial Blood Ionized Calcium Urine WBC (Auto) Urine Creatinine Salicylates Acetaminophen 05/28/21 05/29/21 05/29/21 23:28 02:59 04:15 WBC RBC Hgb Hct MCV MCH MCHC RDW Plt Count Seg Neuts % (Manual) Lymphocytes % (Manual) Seg Neutrophils # Man Lymphocytes # (Manual) Monocytes # (Manual) APTT D-Dimer ABG pH 7.481 H POC ABG pCO2 24.6 L POC ABG pO2 ABG Hemoglobin 10.6 L ABG Oxyhemoglobin ABG Sodium 149.5 H ABG Chloride 122.0 H ABG Glucose 129 H Carboxyhemoglobin 0.3 L Sodium 159 H Potassium Chloride 124.0 H Carbon Dioxide 21 L BUN 88 H Creatinine 2.4 H Glucose 136 H POC Glucose 139 H Lactic Acid Calcium 6.8 L Phosphorus Magnesium Ferritin AST ALT Alkaline Phosphatase Lactate Dehydrogenase Troponin T C-Reactive Protein Albumin Triglycerides HDL Cholesterol Arterial Blood Glucose 129 H Arterial Blood Ionized Calcium 3.8 L Urine WBC (Auto) Urine Creatinine Salicylates Acetaminophen 05/29/21 05/29/21 05/29/21 05:13 15:35 18:05 WBC RBC Hgb Hct MCV MCH MCHC RDW Plt Count Seg Neuts % (Manual) Lymphocytes % (Manual) Seg Neutrophils # Man Lymphocytes # (Manual) Monocytes # (Manual) APTT D-Dimer ABG pH POC ABG pCO2 POC ABG pO2 ABG Hemoglobin ABG Oxyhemoglobin ABG Sodium ABG Chloride ABG Glucose Carboxyhemoglobin Sodium 160 H Potassium Chloride 124.8 H Carbon Dioxide 20 L BUN 83 H Creatinine 1.9 H Glucose 147 H POC Glucose 138 H 141 H Lactic Acid Calcium 7.1 L Phosphorus Magnesium Ferritin AST ALT Alkaline Phosphatase Lactate Dehydrogenase Troponin T C-Reactive Protein Albumin Triglycerides HDL Cholesterol Arterial Blood Glucose Arterial Blood Ionized Calcium Urine WBC (Auto) Urine Creatinine Salicylates Acetaminophen 05/29/21 05/30/21 05/30/21 23:22 01:20 04:33 WBC RBC Hgb Hct MCV MCH MCHC RDW Plt Count Seg Neuts % (Manual) Lymphocytes % (Manual) Seg Neutrophils # Man Lymphocytes # (Manual) Monocytes # (Manual) APTT D-Dimer ABG pH 7.484 H POC ABG pCO2 24.6 L POC ABG pO2 131.2 H ABG Hemoglobin 11.7 L ABG Oxyhemoglobin 98.1 H ABG Sodium 155.7 H ABG Chloride 126.0 H ABG Glucose 191 H Carboxyhemoglobin 0.1 L Sodium 162 H* Potassium Chloride 129.0 H Carbon Dioxide 19 L BUN 89 H Creatinine 2.1 H Glucose 190 H POC Glucose 160 H Lactic Acid Calcium 7.4 L Phosphorus Magnesium Ferritin AST ALT Alkaline Phosphatase Lactate Dehydrogenase Troponin T C-Reactive Protein Albumin Triglycerides HDL Cholesterol Arterial Blood Glucose 191 H Arterial Blood Ionized Calcium 4.1 L Urine WBC (Auto) Urine Creatinine Salicylates Acetaminophen 05/30/21 05/30/21 05/30/21 05:21 15:25 17:59 WBC RBC Hgb Hct MCV MCH MCHC RDW Plt Count Seg Neuts % (Manual) Lymphocytes % (Manual) Seg Neutrophils # Man Lymphocytes # (Manual) Monocytes # (Manual) APTT D-Dimer ABG pH POC ABG pCO2 POC ABG pO2 ABG Hemoglobin ABG Oxyhemoglobin ABG Sodium ABG Chloride ABG Glucose Carboxyhemoglobin Sodium 161 H* Potassium 3.4 L Chloride 131.7 H Carbon Dioxide 18 L BUN 77 H Creatinine 1.5 H Glucose 200 H POC Glucose 169 H 147 H Lactic Acid Calcium 7.2 L Phosphorus Magnesium Ferritin AST ALT Alkaline Phosphatase Lactate Dehydrogenase Troponin T C-Reactive Protein Albumin Triglycerides HDL Cholesterol Arterial Blood Glucose Arterial Blood Ionized Calcium Urine WBC (Auto) Urine Creatinine Salicylates Acetaminophen 05/30/21 05/31/21 05/31/21 23:34 04:33 05:29 WBC RBC Hgb Hct MCV MCH MCHC RDW Plt Count Seg Neuts % (Manual) Lymphocytes % (Manual) Seg Neutrophils # Man Lymphocytes # (Manual) Monocytes # (Manual) APTT D-Dimer ABG pH POC ABG pCO2 POC ABG pO2 ABG Hemoglobin ABG Oxyhemoglobin ABG Sodium ABG Chloride ABG Glucose Carboxyhemoglobin Sodium 154 H Potassium Chloride 123.6 H Carbon Dioxide 19 L BUN 52 H Creatinine Glucose 139 H POC Glucose 153 H 132 H Lactic Acid Calcium 7.1 L Phosphorus 2.30 L Magnesium Ferritin AST ALT Alkaline Phosphatase Lactate Dehydrogenase Troponin T C-Reactive Protein Albumin Triglycerides HDL Cholesterol Arterial Blood Glucose Arterial Blood Ionized Calcium Urine WBC (Auto) Urine Creatinine Salicylates Acetaminophen 05/31/21 05/31/21 05/31/21 11:47 15:23 17:18 WBC RBC Hgb Hct MCV MCH MCHC RDW Plt Count Seg Neuts % (Manual) Lymphocytes % (Manual) Seg Neutrophils # Man Lymphocytes # (Manual) Monocytes # (Manual) APTT D-Dimer ABG pH POC ABG pCO2 POC ABG pO2 ABG Hemoglobin ABG Oxyhemoglobin ABG Sodium ABG Chloride ABG Glucose Carboxyhemoglobin Sodium 149 H Potassium 3.4 L D Chloride 117.7 H Carbon Dioxide 21 L BUN 40 H Creatinine Glucose 139 H POC Glucose 114 H 108 H Lactic Acid Calcium 7.0 L Phosphorus Magnesium Ferritin AST ALT Alkaline Phosphatase Lactate Dehydrogenase Troponin T C-Reactive Protein Albumin Triglycerides HDL Cholesterol Arterial Blood Glucose Arterial Blood Ionized Calcium Urine WBC (Auto) Urine Creatinine Salicylates Acetaminophen 05/31/21 06/01/21 06/01/21 23:13 04:00 05:50 WBC RBC Hgb Hct MCV MCH MCHC RDW Plt Count Seg Neuts % (Manual) Lymphocytes % (Manual) Seg Neutrophils # Man Lymphocytes # (Manual) Monocytes # (Manual) APTT D-Dimer ABG pH 7.555 H POC ABG pCO2 27.6 L POC ABG pO2 65.6 L ABG Hemoglobin 9.2 L ABG Oxyhemoglobin ABG Sodium ABG Chloride 111.0 H ABG Glucose 143 H Carboxyhemoglobin 0.1 L Sodium Potassium Chloride Carbon Dioxide BUN Creatinine Glucose POC Glucose 126 H 121 H Lactic Acid Calcium Phosphorus Magnesium Ferritin AST ALT Alkaline Phosphatase Lactate Dehydrogenase Troponin T C-Reactive Protein Albumin Triglycerides HDL Cholesterol Arterial Blood Glucose 143 H Arterial Blood Ionized Calcium 3.7 L Urine WBC (Auto) Urine Creatinine Salicylates Acetaminophen 06/01/21 06/01/21 06/01/21 10:10 10:10 11:35 WBC 17.6 H RBC Hgb Hct MCV MCH 27 L MCHC RDW Plt Count 105 L Seg Neuts % (Manual) Lymphocytes % (Manual) Seg Neutrophils # Man Lymphocytes # (Manual) Monocytes # (Manual) APTT D-Dimer ABG pH POC ABG pCO2 POC ABG pO2 ABG Hemoglobin ABG Oxyhemoglobin ABG Sodium ABG Chloride ABG Glucose Carboxyhemoglobin Sodium Potassium 3.5 L Chloride Carbon Dioxide BUN 30 H Creatinine Glucose 137 H POC Glucose 112 H Lactic Acid Calcium 7.1 L Phosphorus 1.80 L D Magnesium 1.40 L Ferritin AST ALT Alkaline Phosphatase Lactate Dehydrogenase Troponin T C-Reactive Protein Albumin Triglycerides HDL Cholesterol Arterial Blood Glucose Arterial Blood Ionized Calcium Urine WBC (Auto) Urine Creatinine Salicylates Acetaminophen 06/01/21 06/02/21 06/02/21 17:41 05:24 09:50 WBC 17.1 H RBC 3.14 L Hgb 8.5 L D Hct 25.6 L D MCV 82 L MCH 27 L MCHC RDW Plt Count 124 L Seg Neuts % (Manual) Lymphocytes % (Manual) Seg Neutrophils # Man Lymphocytes # (Manual) Monocytes # (Manual) APTT D-Dimer ABG pH POC ABG pCO2 POC ABG pO2 ABG Hemoglobin ABG Oxyhemoglobin ABG Sodium ABG Chloride ABG Glucose Carboxyhemoglobin Sodium Potassium Chloride 108.1 H Carbon Dioxide BUN 31 H Creatinine 0.7 L Glucose 128 H POC Glucose 125 H Lactic Acid Calcium 6.1 L Phosphorus Magnesium Ferritin AST ALT Alkaline Phosphatase Lactate Dehydrogenase Troponin T C-Reactive Protein Albumin Triglycerides HDL Cholesterol Arterial Blood Glucose Arterial Blood Ionized Calcium Urine WBC (Auto) Urine Creatinine Salicylates Acetaminophen 06/02/21 06/03/21 06/03/21 18:43 00:25 05:43 WBC RBC Hgb Hct MCV MCH MCHC RDW Plt Count Seg Neuts % (Manual) Lymphocytes % (Manual) Seg Neutrophils # Man Lymphocytes # (Manual) Monocytes # (Manual) APTT D-Dimer ABG pH POC ABG pCO2 POC ABG pO2 ABG Hemoglobin ABG Oxyhemoglobin ABG Sodium ABG Chloride ABG Glucose Carboxyhemoglobin Sodium Potassium Chloride Carbon Dioxide BUN Creatinine Glucose POC Glucose 111 H 124 H 127 H Lactic Acid Calcium Phosphorus Magnesium Ferritin AST ALT Alkaline Phosphatase Lactate Dehydrogenase Troponin T C-Reactive Protein Albumin Triglycerides HDL Cholesterol Arterial Blood Glucose Arterial Blood Ionized Calcium Urine WBC (Auto) Urine Creatinine Salicylates Acetaminophen 06/03/21 06/03/21 06:20 06:20 WBC 19.4 H RBC 3.24 L Hgb 8.7 L Hct 26.7 L MCV 82 L MCH 27 L MCHC RDW Plt Count Seg Neuts % (Manual) Lymphocytes % (Manual) Seg Neutrophils # Man Lymphocytes # (Manual) Monocytes # (Manual) APTT D-Dimer ABG pH POC ABG pCO2 POC ABG pO2 ABG Hemoglobin ABG Oxyhemoglobin ABG Sodium ABG Chloride ABG Glucose Carboxyhemoglobin Sodium Potassium Chloride 108.1 H Carbon Dioxide BUN 31 H Creatinine 0.6 L Glucose 126 H POC Glucose Lactic Acid Calcium 6.8 L Phosphorus Magnesium Ferritin AST ALT Alkaline Phosphatase Lactate Dehydrogenase Troponin T C-Reactive Protein Albumin Triglycerides HDL Cholesterol Arterial Blood Glucose Arterial Blood Ionized Calcium Urine WBC (Auto) Urine Creatinine Salicylates Acetaminophen Chest x-ray: image reviewed (no focal infiltrate; uncoiled aorta) Allied health notes reviewed: nursing
--- NOTE | 2021-06-03 16:17 | Magnetic Resonance Report ---
MRI BRAIN WITHOUT CONTRAST INDICATION / CLINICAL INFORMATION: CVA, DEMENTIA, UNRESPONSIVE, PT ON VENT. TECHNIQUE: Multiplanar, multisequence MR images of the brain were obtained. COMPARISON: Head CT 05/26/2021 FINDINGS: BRAIN / INTRACRANIAL CONTENTS: Large region of restricted diffusion is demonstrated involving the medial aspect of the right occipit al lobe and adjacent corpus callosum consistent with recent right posterior cerebral artery infarctio n. There is mild mass effect with effacement of adjacent cortical sulci and compression of the atria of the right lateral ventricle. These findings have developed since head CT 05/26/2021. Curvilinear hyp erintensity is seen in a gyral distribution T1-weighted scans consistent with cortical laminar necros is. Age-related parenchymal volume loss is demonstrated. Dilatation of the cortical sulci and ventricular system is noted. These are prominent findings even given the patient's stated age of 81 years. Promi nent right worse than left temporal lobe atrophy is observed. Extensive periventricular, subcortical and deep white matter hyperintensities are noted consistent with age-related microvascular ischemic c hanges. No evidence of intracranial hemorrhage or extra-axial fluid collection is seen. The brainstem and cerebellum have an unremarkable appearance. CRANIOCERVICAL JUNCTION: No abnormalities are identified at the craniocervical junction. VASCULAR FLOW-VOIDS: Normal flow-voids are present within the major intracranial vessels. ORBITS: The orbits have an unremarkable appearance. SINUSES / MASTOIDS: There is no indication of inflammatory disease in the paranasal sinuses or mastoi d air cells. IMPRESSION: 1. 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 2. Prominent mobile atrophy with profound focal atrophy involving the right temporal lobe. Signer Name: Felipe Santizo MD Signed: 06/03/2021 4:13 PM Workstation Name: [id number]
--- NOTE | 2021-06-03 18:45 | Event Note ---
Date: 06/03/21 MRI brain results reviewed. Dr. Underwood and Estrellita have been informed. Dr. Underwood states he will review the images tomorrow morning to make further decisions about care.
[2021-06-03] MEDS: ACETAMINOPHEN 325 MG/10.15 ML ORAL LIQD UNIT DOSE FEEDTUBE PRN (21:20)
[2021-06-04] MEDS: amLODIPine 5 MG TAB PO SCH (09:45)
[2021-06-04] MEDS: FINASTERIDE 5 MG TAB PO SCH (09:46)
[2021-06-04] MEDS: CALCIUM CARBONATE 1250 MG/5 ML ORAL LIQD FEEDTUBE SCH ×2 (09:46→21:24)
[2021-06-04] MEDS: SENNOSIDES/DOCUSATE SODIUM 8.6/50 MG TAB FEEDTUBE SCH ×2 (09:46→21:24)
[2021-06-04] MEDS: TAMSULOSIN 0.4 MG CAP PO SCH (09:46)
[2021-06-04] MEDS: FAMOTIDINE 20 MG TAB PO SCH (09:47)
[2021-06-04] MEDS: HEPARIN 5,000 UNIT/1 ML VIAL SUB-Q SCH ×2 (09:48→21:24)
--- NOTE | 2021-06-04 10:45 | Progress Note ---
Assessment and Plan 1. Acute kidney injury: Vasomotor SIXTO in the volume depletion / dehydration. CT abdomen negative for hydro. Monitor renal function. Creatinine level is better. Non-oliguric. Avoid nephrotoxic agents. Meds dosage based on GFR. 2. FEN: Hypernatremia, improved, monitor. Metabolic acidosis, improved, monitor. No labs from today. Monitor lytes. 3. Acute respiratory failure with hypoxia: 2/2 PNA. Intubated, on vent. 4. Pneumonia, POA: Covid test negative. Follow cultures. 5. Elevated Troponin: Monitor. 6. Hypertension: Monitor BP. Meds as appropriate. 7. 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 Followed by Neuro. Prognosis guarded. Subjective: Patient was seen and examined at the bedside. Examination: General appearance: well-developed, thin built, appears stated age, intubated, on vent HEENT: ATNC, pupils equal Neck: supple Respiratory: coarse breath sounds Cardiology: regular, S1S2, no murmur Gastrointestinal: soft, bowel sounds heard, not tender Integumentary: no rash, warm and dry Neurologic: slight grimace Ext: no edema Subjective Date of service: 06/04/21 Principal diagnosis: Ac. hypoxemic resp failure; CAP; Ac. encephalopathy; SIXTO; Sepsis; PUI COVID Objective - Vital Signs Vital signs: Vital Signs - 12hr 06/03/21 06/03/21 06/04/21 23:00 23:26 00:00 Pulse Rate 83 90 91 H Pulse Rate [ From Monitor] Respiratory 21 28 H 28 H Rate Blood Pressure 114/56 114/56 125/60 O2 Sat by Pulse 100 100 100 Oximetry 06/04/21 06/04/21 06/04/21 00:26 01:00 02:00 Pulse Rate 80 82 80 Pulse Rate [ From Monitor] Respiratory 23 19 Rate Blood Pressure 125/60 106/54 109/52 O2 Sat by Pulse 100 100 100 Oximetry 06/04/21 06/04/21 06/04/21 03:00 04:00 04:11 Pulse Rate 78 76 82 Pulse Rate [ From Monitor] Respiratory 12 19 Rate Blood Pressure 102/50 128/62 128/62 O2 Sat by Pulse 100 100 96 Oximetry 06/04/21 06/04/21 06/04/21 05:00 06:00 07:00 Pulse Rate 83 84 90 Pulse Rate [ From Monitor] Respiratory 22 19 21 Rate Blood Pressure 128/63 131/59 127/64 O2 Sat by Pulse 96 100 Oximetry 06/04/21 06/04/21 06/04/21 07:31 08:00 09:00 Pulse Rate 94 H 102 H 101 H Pulse Rate [ 103 H From Monitor] Respiratory 27 H 28 H 31 H Rate Blood Pressure 127/64 137/71 141/64 O2 Sat by Pulse 100 99 100 Oximetry 06/04/21 09:45 Pulse Rate 104 H Pulse Rate [ From Monitor] Respiratory Rate Blood Pressure 141/64 O2 Sat by Pulse Oximetry - Lab 06/03/21 06:20 06/03/21 06:20 Most recent lab results ABG pH 7.555 (7.320-7.450) H 06/01/21 04:00 ABG O2 Saturation 94.5 (0-100) 06/01/21 04:00 Calcium 6.8 mg/dL (8.4-10.2) L 06/03/21 06:20 Phosphorus 2.50 mg/dL (2.5-4.5) 06/03/21 06:20 Magnesium 2.10 mg/dL (1.7-2.3) 06/02/21 05:24 Urine Creatinine 51.6 mg/dL (0.1-20.0) H 05/26/21 Unknown Urine Sodium 96 mmol/L 05/26/21 Unknown Medications & Allergies - Medications Allergies/Adverse Reactions: Allergies No Known Allergies Allergy (Verified 05/29/21 18:46) Home Medications: Home Medications Medication Instructions Recorded Confirmed Last Taken Type No Known Home Medications [No 05/26/21 05/26/21 Unknown History Reported Home Medications] Active Medications: Generic Name Dose Route Start Last Admin Trade Name Freq PRN Reason Stop Dose Admin Acetaminophen 650 mg 05/30/21 08:30 06/03/21 21:20 Acetaminophen 325 Mg/10.15 Ml Oral Liqd Unit Dose FEEDTUBE 650 mg Q6H PRN Administration Pain 1 -3, fever >100.5 Albuterol 2.5 mg 05/26/21 18:34 Albuterol 2.5 Mg/3 Ml Nebu IH Q3HRT PRN Shortness Of Breath Amlodipine Besylate 5 mg 06/03/21 10:00 06/04/21 09:45 Amlodipine 5 Mg Tab PO 5 mg QDAY ONDINA Administration Lipase/Protease/Amylase 1 each 05/28/21 08:24 Lipase 10,500/Protease 25,000/Amylase 43,750 (Units) Dr De Leon FEEDTUBE PRN PRN For Clogged Feeding Tube Aspirin 325 mg 06/04/21 10:00 Aspirin Ec 325 Mg Tab PO QDAY ONDINA Atorvastatin Calcium 40 mg 06/03/21 22:00 06/03/21 21:19 Atorvastatin 40 Mg Tab PO 40 mg QHS ONDINA Administration Calcium Carbonate/Glycine 1,250 mg 06/03/21 10:00 06/04/21 09:46 Calcium Carbonate 1250 Mg/5 Ml Oral Liqd FEEDTUBE 06/05/21 09:59 1,250 mg BID ONDINA Administration Famotidine 20 mg 05/28/21 10:00 06/04/21 09:47 Famotidine 20 Mg Tab PO 20 mg DAILY ONDINA Administration Finasteride 5 mg 06/03/21 10:00 06/04/21 09:46 Finasteride 5 Mg Tab PO 5 mg QDAY ONDINA Administration Heparin Sodium (Porcine) 5,000 unit 05/26/21 22:00 06/04/21 09:48 Heparin 5,000 Unit/1 Ml Vial SUB-Q 5,000 unit Q12HR ONDINA Administration Hydrophilic Ointment 1 applic 05/26/21 17:02 Lip Therapy Vaseline TP Q2HR PRN Dry Lips Propofol 1,000 mg in 100 mls @ 1.361 mls/hr 05/30/21 06:00 05/31/21 08:50 Diprivan 10 Mg/Ml IV 0 mcg/kg/min TITR ONDINA 0 mls/hr Titration Protocol 5 MCG/KG/MIN Multi-Ingred Cream/Lotion/Oil/Oint 1 applic 05/26/21 17:02 Mineral Oil/Petrolatum, White Ophth Oint 3.5 Gm OU Q4HR PRN Dry Eye(s) Senna/Docusate Sodium 1 tab 05/26/21 22:00 06/04/21 09:46 Sennosides/Docusate Sodium 8.6/50 Mg Tab FEEDTUBE Not Given BID ONDINA Simple Syrup 15 ml 05/28/21 08:24 Simple Syrup 15 Ml FEEDTUBE PRN PRN Hypoglycemia Simple Syrup 30 ml 05/28/21 08:24 Simple Syrup 15 Ml FEEDTUBE PRN PRN Hypoglycemia Sodium Bicarbonate 325 mg 05/28/21 08:24 Sodium Bicarbonate 325 Mg Tab FEEDTUBE PRN PRN For Clogged Feeding Tube Sodium Chloride 10 ml 05/26/21 22:00 06/04/21 09:47 Sodium Chloride 0.9% 10 Ml Flush Syringe IV 10 ml BID ONDINA Administration Sodium Chloride 10 ml 05/26/21 18:34 Sodium Chloride 0.9% 10 Ml Flush Syringe IV PRN PRN LINE FLUSH Tamsulosin HCl 0.8 mg 05/29/21 12:00 06/04/21 09:46 Tamsulosin 0.4 Mg Cap PO 0.8 mg QDAY ONDINA Administration
--- NOTE | 2021-06-04 12:46 | Progress Note ---
Assessment and Plan Acute hypoxemic respiratory failure on MVS Bilateral pneumonia (CAP) Acute toxic metabolic encephalopathy Severe sepsis Acute kidney injury Hypertensive urgency Elevated serum D-dimer Adult failure to thrive Mild metabolic acidosis Hyperchloremia Lactic acidosis Elevated serum inflammatory markers to include ferritin, D-dimers, and LDH PUI COVID-19 infection - discontinue Senna/docusate - not a candidate for trial of extubation re: large infarct and persistent dense encephalopathy - Surgey consulted for trach and PEG placement - neurology evaluation ongoing; follow EEG - continue care as below otherwise; - continue to wean supplemental oxygen for target O2 sat's > 90% acutely - VAP bundle addressed - continue lung protective strategies - continue Daily SAT and SBT assessment as tolerated - continue bronchodilators with pulmonary hygiene per RT - wean per pulmonary driven protocols otherwise - continue accuchecks with glycemic control per SSI (While critically ill target blood glucose of 140-180 mg/dL; avoid hypoglycemia) - sedation prn for target RASS 0 to -1 - avoid nephrotoxins, renally dose all medications - continue to avoid benzodiazepine's, reduce the possibility of delirium - complete AB's per ID rec's - prn analgesia per CPOT score - Maintenance of sleep-wake cycle, avoid delirium - continue enteral nutritional support at goal rate as tolerated - G.I. & VTE prophylaxis - PT/OT/ROM exercises - continue mobility protocols for pressure ulcer prophylaxis - Monitor hemodynamics closely - continue other care per attending / other consultants - discharge planning ongoing concurrently COVID SPECIFIC INTERVENTIONS - COVID-19 PCR negative .... Re-evaluate in am & prn CONDITION: CRITICAL PROGNOSIS: GUARDED CODE STATUS: FULL CODE The high probability of a clinically significant, sudden or life-threatening deterioration of the [respiratory, cardiovascular, renal & neurologic] system(s) required my full and direct attention, intervention and personal management. The aggregate critical care time was [32] minutes without overlap. Time includes spent on; [x] Data Review and interpretation [x] Patient assessment and monitoring of vital signs [x] Documentation [x] Medication orders and management Subjective Date of service: 06/04/21 Principal diagnosis: Ac. hypoxemic resp failure; CAP; Ac. encephalopathy; SIXTO; Sepsis; PUI COVID Interval history: Patient is seen today for: Ac. 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; AMS is persistent; tolerating SBT well; unable to reach NOK; + loose stools reported Objective Vital Signs - 12hr 06/04/21 06/04/21 06/04/21 01:00 02:00 03:00 Pulse Rate 82 80 78 Pulse Rate [ From Monitor] Respiratory 23 19 12 Rate Blood Pressure 106/54 109/52 102/50 O2 Sat by Pulse 100 100 100 Oximetry 06/04/21 06/04/21 06/04/21 04:00 04:11 05:00 Pulse Rate 76 82 83 Pulse Rate [ From Monitor] Respiratory 19 22 Rate Blood Pressure 128/62 128/62 128/63 O2 Sat by Pulse 100 96 96 Oximetry 06/04/21 06/04/21 06/04/21 06:00 07:00 07:31 Pulse Rate 84 90 94 H Pulse Rate [ From Monitor] Respiratory 19 21 27 H Rate Blood Pressure 131/59 127/64 127/64 O2 Sat by Pulse 100 100 Oximetry 06/04/21 06/04/21 06/04/21 08:00 09:00 09:45 Pulse Rate 102 H 101 H 104 H Pulse Rate [ 103 H From Monitor] Respiratory 28 H 31 H Rate Blood Pressure 137/71 141/64 141/64 O2 Sat by Pulse 99 100 Oximetry 06/04/21 06/04/21 06/04/21 10:00 11:00 11:23 Pulse Rate 103 H 102 H 104 H Pulse Rate [ From Monitor] Respiratory 31 H 30 H 30 H Rate Blood Pressure 139/69 139/60 139/60 O2 Sat by Pulse 100 100 100 Oximetry 06/04/21 12:00 Pulse Rate 102 H Pulse Rate [ 102 H From Monitor] Respiratory 30 H Rate Blood Pressure 138/62 O2 Sat by Pulse 100 Oximetry Constitutional: no acute distress, other (orally intuabted to MVS, no dys- synchrony, ETT (7.5) 23 cm at the lip) Eyes: non-icteric ENT: oropharynx moist Neck: supple, no lymphadenopathy, no JVD Effort: mildly labored Ascultation: Bilateral: diminished breath sounds, rhonchi (scant) Percussion: Bilateral: not dull Cardiovascular: regular rate and rhythm, other (S1,S2) Gastrointestinal: normoactive bowel sounds, soft, non-tender, non-distended Integumentary: normal Extremities: no cyanosis, no edema, pulses normal, no ischemia or petechiae Neurologic: pupils equal and round, other (encephalopathic) Psychiatric: other (unable to assess) CBC and BMP: 06/05/21 09:41 06/05/21 04:59 ABG, PT/INR, D-dimer: ABG ABG pH 7.555 (7.320-7.450) H 06/01/21 04:00 POC ABG pCO2 27.6 mmHg (32.0-48.0) L 06/01/21 04:00 POC ABG pO2 65.6 mmHg (83-108) L 06/01/21 04:00 POC ABG HCO3 23.9 06/01/21 04:00 ABG O2 Saturation 94.5 (0-100) 06/01/21 04:00 PT/INR, D-dimer PT 14.0 Sec. (12.2-14.9) 06/02/21 16:57 INR 1.03 (0.87-1.13) 06/02/21 16:57 D-Dimer 8255.81 ng/mlDDU (0-234) H 05/26/21 17:08 Abnormal lab findings: Abnormal Labs 05/26/21 05/26/21 05/26/21 17:08 17:08 17:08 WBC RBC Hgb Hct MCV MCH MCHC 31 L RDW 16.2 H Plt Count 80 L Seg Neuts % (Manual) Lymphocytes % (Manual) Seg Neutrophils # Man Lymphocytes # (Manual) Monocytes # (Manual) APTT 42.4 H D-Dimer 8255.81 H ABG pH POC ABG pCO2 POC ABG pO2 ABG Hemoglobin ABG Oxyhemoglobin ABG Sodium ABG Chloride ABG Glucose Carboxyhemoglobin Sodium 180 H* Potassium Chloride 140 H Carbon Dioxide 21 L BUN 118 H Creatinine 5.4 H Glucose 133 H POC Glucose Lactic Acid Calcium 8.1 L Phosphorus Magnesium Ferritin AST 97 H ALT 71 H Alkaline Phosphatase 138 H Lactate Dehydrogenase 550 H Troponin T 0.038 H C-Reactive Protein 4.20 H Albumin 3.3 L Triglycerides 150 H HDL Cholesterol 24 L Arterial Blood Glucose Arterial Blood Ionized Calcium Urine WBC (Auto) Urine Creatinine Salicylates Acetaminophen 05/26/21 05/26/21 05/26/21 17:08 17:08 17:08 WBC RBC Hgb Hct MCV MCH MCHC RDW Plt Count Seg Neuts % (Manual) Lymphocytes % (Manual) Seg Neutrophils # Man Lymphocytes # (Manual) Monocytes # (Manual) APTT D-Dimer ABG pH POC ABG pCO2 POC ABG pO2 ABG Hemoglobin ABG Oxyhemoglobin ABG Sodium ABG Chloride ABG Glucose Carboxyhemoglobin Sodium Potassium Chloride Carbon Dioxide BUN Creatinine Glucose POC Glucose Lactic Acid 3.90 H* Calcium Phosphorus Magnesium Ferritin 598.3 H AST ALT Alkaline Phosphatase Lactate Dehydrogenase Troponin T C-Reactive Protein Albumin Triglycerides HDL Cholesterol Arterial Blood Glucose Arterial Blood Ionized Calcium Urine WBC (Auto) Urine Creatinine Salicylates Acetaminophen < 5.0 L 05/26/21 05/26/21 05/26/21 17:08 17:27 23:28 WBC RBC Hgb Hct MCV MCH MCHC RDW Plt Count Seg Neuts % (Manual) Lymphocytes % (Manual) Seg Neutrophils # Man Lymphocytes # (Manual) Monocytes # (Manual) APTT D-Dimer ABG pH POC ABG pCO2 POC ABG pO2 453.5 H ABG Hemoglobin 11.5 L ABG Oxyhemoglobin 98.7 H ABG Sodium 198.2 H ABG Chloride ABG Glucose 116 H Carboxyhemoglobin 0.3 L Sodium Potassium Chloride Carbon Dioxide BUN Creatinine Glucose POC Glucose 182 H Lactic Acid Calcium Phosphorus Magnesium Ferritin AST ALT Alkaline Phosphatase Lactate Dehydrogenase Troponin T C-Reactive Protein Albumin Triglycerides HDL Cholesterol Arterial Blood Glucose 116 H Arterial Blood Ionized Calcium Urine WBC (Auto) Urine Creatinine Salicylates < 0.3 L Acetaminophen 05/26/21 05/26/21 05/27/21 Unknown Unknown 01:58 WBC RBC Hgb Hct MCV MCH MCHC RDW Plt Count Seg Neuts % (Manual) Lymphocytes % (Manual) Seg Neutrophils # Man Lymphocytes # (Manual) Monocytes # (Manual) APTT D-Dimer ABG pH POC ABG pCO2 POC ABG pO2 ABG Hemoglobin ABG Oxyhemoglobin ABG Sodium ABG Chloride ABG Glucose Carboxyhemoglobin Sodium Potassium Chloride Carbon Dioxide BUN Creatinine Glucose POC Glucose Lactic Acid 2.90 H* Calcium Phosphorus Magnesium Ferritin AST ALT Alkaline Phosphatase Lactate Dehydrogenase Troponin T C-Reactive Protein Albumin Triglycerides HDL Cholesterol Arterial Blood Glucose Arterial Blood Ionized Calcium Urine WBC (Auto) 16.0 H Urine Creatinine 51.6 H Salicylates Acetaminophen 05/27/21 05/27/21 05/27/21 02:00 02:00 03:19 WBC 27.1 H RBC Hgb 11.1 L Hct MCV MCH 27 L MCHC 31 L RDW 16.1 H Plt Count 62 L Seg Neuts % (Manual) 93.0 H Lymphocytes % (Manual) 3.0 L Seg Neutrophils # Man 25.2 H Lymphocytes # (Manual) 0.8 L Monocytes # (Manual) 1.1 H APTT D-Dimer ABG pH POC ABG pCO2 31.7 L POC ABG pO2 79.5 L ABG Hemoglobin 10.9 L ABG Oxyhemoglobin ABG Sodium 181.4 H ABG Chloride ABG Glucose 276 H Carboxyhemoglobin 0.1 L Sodium 180 H* Potassium Chloride 140 H Carbon Dioxide 19 L BUN 100 H Creatinine 4.3 H Glucose 272 H POC Glucose Lactic Acid Calcium 7.0 L Phosphorus 5.00 H Magnesium Ferritin AST 66 H ALT 64 H Alkaline Phosphatase Lactate Dehydrogenase Troponin T C-Reactive Protein Albumin 2.9 L Triglycerides HDL Cholesterol Arterial Blood Glucose 276 H Arterial Blood Ionized Calcium 4.1 L Urine WBC (Auto) Urine Creatinine Salicylates Acetaminophen 05/27/21 05/27/21 05/27/21 08:22 08:22 12:08 WBC RBC Hgb Hct MCV MCH MCHC RDW Plt Count Seg Neuts % (Manual) Lymphocytes % (Manual) Seg Neutrophils # Man Lymphocytes # (Manual) Monocytes # (Manual) APTT D-Dimer ABG pH POC ABG pCO2 POC ABG pO2 ABG Hemoglobin ABG Oxyhemoglobin ABG Sodium ABG Chloride ABG Glucose Carboxyhemoglobin Sodium 179 H* Potassium Chloride > 139 H Carbon Dioxide 21 L 19 L BUN 103 H 105 H Creatinine 4.2 H 4.2 H Glucose 271 H 217 H POC Glucose Lactic Acid 2.20 H* Calcium 7.3 L 7.0 L Phosphorus Magnesium Ferritin AST ALT Alkaline Phosphatase Lactate Dehydrogenase Troponin T C-Reactive Protein Albumin Triglycerides HDL Cholesterol Arterial Blood Glucose Arterial Blood Ionized Calcium Urine WBC (Auto) Urine Creatinine Salicylates Acetaminophen 05/27/21 05/27/21 05/27/21 12:14 18:03 23:15 WBC RBC Hgb Hct MCV MCH MCHC RDW Plt Count Seg Neuts % (Manual) Lymphocytes % (Manual) Seg Neutrophils # Man Lymphocytes # (Manual) Monocytes # (Manual) APTT D-Dimer ABG pH POC ABG pCO2 POC ABG pO2 ABG Hemoglobin ABG Oxyhemoglobin ABG Sodium ABG Chloride ABG Glucose Carboxyhemoglobin Sodium Potassium Chloride Carbon Dioxide BUN Creatinine Glucose POC Glucose 184 H 183 H 191 H Lactic Acid Calcium Phosphorus Magnesium Ferritin AST ALT Alkaline Phosphatase Lactate Dehydrogenase Troponin T C-Reactive Protein Albumin Triglycerides HDL Cholesterol Arterial Blood Glucose Arterial Blood Ionized Calcium Urine WBC (Auto) Urine Creatinine Salicylates Acetaminophen 05/28/21 05/28/21 05/28/21 03:19 05:15 08:47 WBC RBC Hgb Hct MCV MCH MCHC RDW Plt Count Seg Neuts % (Manual) Lymphocytes % (Manual) Seg Neutrophils # Man Lymphocytes # (Manual) Monocytes # (Manual) APTT D-Dimer ABG pH POC ABG pCO2 29.6 L POC ABG pO2 115.2 H ABG Hemoglobin 10.2 L ABG Oxyhemoglobin ABG Sodium 153.6 H ABG Chloride 129.0 H ABG Glucose 215 H Carboxyhemoglobin 0.3 L Sodium 159 H D Potassium Chloride 123.7 H Carbon Dioxide 20 L BUN 88 H Creatinine 2.9 H Glucose 177 H POC Glucose 184 H Lactic Acid Calcium 6.3 L Phosphorus Magnesium Ferritin AST ALT Alkaline Phosphatase Lactate Dehydrogenase Troponin T C-Reactive Protein Albumin Triglycerides HDL Cholesterol Arterial Blood Glucose 215 H Arterial Blood Ionized Calcium 3.7 L Urine WBC (Auto) Urine Creatinine Salicylates Acetaminophen 05/28/21 05/28/21 05/28/21 11:50 16:27 17:23 WBC RBC Hgb Hct MCV MCH MCHC RDW Plt Count Seg Neuts % (Manual) Lymphocytes % (Manual) Seg Neutrophils # Man Lymphocytes # (Manual) Monocytes # (Manual) APTT D-Dimer ABG pH POC ABG pCO2 POC ABG pO2 ABG Hemoglobin ABG Oxyhemoglobin ABG Sodium ABG Chloride ABG Glucose Carboxyhemoglobin Sodium 154 H Potassium Chloride Carbon Dioxide BUN Creatinine Glucose POC Glucose 130 H 113 H Lactic Acid Calcium Phosphorus Magnesium Ferritin AST ALT Alkaline Phosphatase Lactate Dehydrogenase Troponin T C-Reactive Protein Albumin Triglycerides HDL Cholesterol Arterial Blood Glucose Arterial Blood Ionized Calcium Urine WBC (Auto) Urine Creatinine Salicylates Acetaminophen 05/28/21 05/29/21 05/29/21 23:28 02:59 04:15 WBC RBC Hgb Hct MCV MCH MCHC RDW Plt Count Seg Neuts % (Manual) Lymphocytes % (Manual) Seg Neutrophils # Man Lymphocytes # (Manual) Monocytes # (Manual) APTT D-Dimer ABG pH 7.481 H POC ABG pCO2 24.6 L POC ABG pO2 ABG Hemoglobin 10.6 L ABG Oxyhemoglobin ABG Sodium 149.5 H ABG Chloride 122.0 H ABG Glucose 129 H Carboxyhemoglobin 0.3 L Sodium 159 H Potassium Chloride 124.0 H Carbon Dioxide 21 L BUN 88 H Creatinine 2.4 H Glucose 136 H POC Glucose 139 H Lactic Acid Calcium 6.8 L Phosphorus Magnesium Ferritin AST ALT Alkaline Phosphatase Lactate Dehydrogenase Troponin T C-Reactive Protein Albumin Triglycerides HDL Cholesterol Arterial Blood Glucose 129 H Arterial Blood Ionized Calcium 3.8 L Urine WBC (Auto) Urine Creatinine Salicylates Acetaminophen 05/29/21 05/29/21 05/29/21 05:13 15:35 18:05 WBC RBC Hgb Hct MCV MCH MCHC RDW Plt Count Seg Neuts % (Manual) Lymphocytes % (Manual) Seg Neutrophils # Man Lymphocytes # (Manual) Monocytes # (Manual) APTT D-Dimer ABG pH POC ABG pCO2 POC ABG pO2 ABG Hemoglobin ABG Oxyhemoglobin ABG Sodium ABG Chloride ABG Glucose Carboxyhemoglobin Sodium 160 H Potassium Chloride 124.8 H Carbon Dioxide 20 L BUN 83 H Creatinine 1.9 H Glucose 147 H POC Glucose 138 H 141 H Lactic Acid Calcium 7.1 L Phosphorus Magnesium Ferritin AST ALT Alkaline Phosphatase Lactate Dehydrogenase Troponin T C-Reactive Protein Albumin Triglycerides HDL Cholesterol Arterial Blood Glucose Arterial Blood Ionized Calcium Urine WBC (Auto) Urine Creatinine Salicylates Acetaminophen 05/29/21 05/30/21 05/30/21 23:22 01:20 04:33 WBC RBC Hgb Hct MCV MCH MCHC RDW Plt Count Seg Neuts % (Manual) Lymphocytes % (Manual) Seg Neutrophils # Man Lymphocytes # (Manual) Monocytes # (Manual) APTT D-Dimer ABG pH 7.484 H POC ABG pCO2 24.6 L POC ABG pO2 131.2 H ABG Hemoglobin 11.7 L ABG Oxyhemoglobin 98.1 H ABG Sodium 155.7 H ABG Chloride 126.0 H ABG Glucose 191 H Carboxyhemoglobin 0.1 L Sodium 162 H* Potassium Chloride 129.0 H Carbon Dioxide 19 L BUN 89 H Creatinine 2.1 H Glucose 190 H POC Glucose 160 H Lactic Acid Calcium 7.4 L Phosphorus Magnesium Ferritin AST ALT Alkaline Phosphatase Lactate Dehydrogenase Troponin T C-Reactive Protein Albumin Triglycerides HDL Cholesterol Arterial Blood Glucose 191 H Arterial Blood Ionized Calcium 4.1 L Urine WBC (Auto) Urine Creatinine Salicylates Acetaminophen 05/30/21 05/30/21 05/30/21 05:21 15:25 17:59 WBC RBC Hgb Hct MCV MCH MCHC RDW Plt Count Seg Neuts % (Manual) Lymphocytes % (Manual) Seg Neutrophils # Man Lymphocytes # (Manual) Monocytes # (Manual) APTT D-Dimer ABG pH POC ABG pCO2 POC ABG pO2 ABG Hemoglobin ABG Oxyhemoglobin ABG Sodium ABG Chloride ABG Glucose Carboxyhemoglobin Sodium 161 H* Potassium 3.4 L Chloride 131.7 H Carbon Dioxide 18 L BUN 77 H Creatinine 1.5 H Glucose 200 H POC Glucose 169 H 147 H Lactic Acid Calcium 7.2 L Phosphorus Magnesium Ferritin AST ALT Alkaline Phosphatase Lactate Dehydrogenase Troponin T C-Reactive Protein Albumin Triglycerides HDL Cholesterol Arterial Blood Glucose Arterial Blood Ionized Calcium Urine WBC (Auto) Urine Creatinine Salicylates Acetaminophen 05/30/21 05/31/21 05/31/21 23:34 04:33 05:29 WBC RBC Hgb Hct MCV MCH MCHC RDW Plt Count Seg Neuts % (Manual) Lymphocytes % (Manual) Seg Neutrophils # Man Lymphocytes # (Manual) Monocytes # (Manual) APTT D-Dimer ABG pH POC ABG pCO2 POC ABG pO2 ABG Hemoglobin ABG Oxyhemoglobin ABG Sodium ABG Chloride ABG Glucose Carboxyhemoglobin Sodium 154 H Potassium Chloride 123.6 H Carbon Dioxide 19 L BUN 52 H Creatinine Glucose 139 H POC Glucose 153 H 132 H Lactic Acid Calcium 7.1 L Phosphorus 2.30 L Magnesium Ferritin AST ALT Alkaline Phosphatase Lactate Dehydrogenase Troponin T C-Reactive Protein Albumin Triglycerides HDL Cholesterol Arterial Blood Glucose Arterial Blood Ionized Calcium Urine WBC (Auto) Urine Creatinine Salicylates Acetaminophen 05/31/21 05/31/21 05/31/21 11:47 15:23 17:18 WBC RBC Hgb Hct MCV MCH MCHC RDW Plt Count Seg Neuts % (Manual) Lymphocytes % (Manual) Seg Neutrophils # Man Lymphocytes # (Manual) Monocytes # (Manual) APTT D-Dimer ABG pH POC ABG pCO2 POC ABG pO2 ABG Hemoglobin ABG Oxyhemoglobin ABG Sodium ABG Chloride ABG Glucose Carboxyhemoglobin Sodium 149 H Potassium 3.4 L D Chloride 117.7 H Carbon Dioxide 21 L BUN 40 H Creatinine Glucose 139 H POC Glucose 114 H 108 H Lactic Acid Calcium 7.0 L Phosphorus Magnesium Ferritin AST ALT Alkaline Phosphatase Lactate Dehydrogenase Troponin T C-Reactive Protein Albumin Triglycerides HDL Cholesterol Arterial Blood Glucose Arterial Blood Ionized Calcium Urine WBC (Auto) Urine Creatinine Salicylates Acetaminophen 05/31/21 06/01/21 06/01/21 23:13 04:00 05:50 WBC RBC Hgb Hct MCV MCH MCHC RDW Plt Count Seg Neuts % (Manual) Lymphocytes % (Manual) Seg Neutrophils # Man Lymphocytes # (Manual) Monocytes # (Manual) APTT D-Dimer ABG pH 7.555 H POC ABG pCO2 27.6 L POC ABG pO2 65.6 L ABG Hemoglobin 9.2 L ABG Oxyhemoglobin ABG Sodium ABG Chloride 111.0 H ABG Glucose 143 H Carboxyhemoglobin 0.1 L Sodium Potassium Chloride Carbon Dioxide BUN Creatinine Glucose POC Glucose 126 H 121 H Lactic Acid Calcium Phosphorus Magnesium Ferritin AST ALT Alkaline Phosphatase Lactate Dehydrogenase Troponin T C-Reactive Protein Albumin Triglycerides HDL Cholesterol Arterial Blood Glucose 143 H Arterial Blood Ionized Calcium 3.7 L Urine WBC (Auto) Urine Creatinine Salicylates Acetaminophen 06/01/21 06/01/21 06/01/21 10:10 10:10 11:35 WBC 17.6 H RBC Hgb Hct MCV MCH 27 L MCHC RDW Plt Count 105 L Seg Neuts % (Manual) Lymphocytes % (Manual) Seg Neutrophils # Man Lymphocytes # (Manual) Monocytes # (Manual) APTT D-Dimer ABG pH POC ABG pCO2 POC ABG pO2 ABG Hemoglobin ABG Oxyhemoglobin ABG Sodium ABG Chloride ABG Glucose Carboxyhemoglobin Sodium Potassium 3.5 L Chloride Carbon Dioxide BUN 30 H Creatinine Glucose 137 H POC Glucose 112 H Lactic Acid Calcium 7.1 L Phosphorus 1.80 L D Magnesium 1.40 L Ferritin AST ALT Alkaline Phosphatase Lactate Dehydrogenase Troponin T C-Reactive Protein Albumin Triglycerides HDL Cholesterol Arterial Blood Glucose Arterial Blood Ionized Calcium Urine WBC (Auto) Urine Creatinine Salicylates Acetaminophen 06/01/21 06/02/21 06/02/21 17:41 05:24 09:50 WBC 17.1 H RBC 3.14 L Hgb 8.5 L D Hct 25.6 L D MCV 82 L MCH 27 L MCHC RDW Plt Count 124 L Seg Neuts % (Manual) Lymphocytes % (Manual) Seg Neutrophils # Man Lymphocytes # (Manual) Monocytes # (Manual) APTT D-Dimer ABG pH POC ABG pCO2 POC ABG pO2 ABG Hemoglobin ABG Oxyhemoglobin ABG Sodium ABG Chloride ABG Glucose Carboxyhemoglobin Sodium Potassium Chloride 108.1 H Carbon Dioxide BUN 31 H Creatinine 0.7 L Glucose 128 H POC Glucose 125 H Lactic Acid Calcium 6.1 L Phosphorus Magnesium Ferritin AST ALT Alkaline Phosphatase Lactate Dehydrogenase Troponin T C-Reactive Protein Albumin Triglycerides HDL Cholesterol Arterial Blood Glucose Arterial Blood Ionized Calcium Urine WBC (Auto) Urine Creatinine Salicylates Acetaminophen 06/02/21 06/03/21 06/03/21 18:43 00:25 05:43 WBC RBC Hgb Hct MCV MCH MCHC RDW Plt Count Seg Neuts % (Manual) Lymphocytes % (Manual) Seg Neutrophils # Man Lymphocytes # (Manual) Monocytes # (Manual) APTT D-Dimer ABG pH POC ABG pCO2 POC ABG pO2 ABG Hemoglobin ABG Oxyhemoglobin ABG Sodium ABG Chloride ABG Glucose Carboxyhemoglobin Sodium Potassium Chloride Carbon Dioxide BUN Creatinine Glucose POC Glucose 111 H 124 H 127 H Lactic Acid Calcium Phosphorus Magnesium Ferritin AST ALT Alkaline Phosphatase Lactate Dehydrogenase Troponin T C-Reactive Protein Albumin Triglycerides HDL Cholesterol Arterial Blood Glucose Arterial Blood Ionized Calcium Urine WBC (Auto) Urine Creatinine Salicylates Acetaminophen 06/03/21 06/03/21 06/03/21 06:20 06:20 17:46 WBC 19.4 H RBC 3.24 L Hgb 8.7 L Hct 26.7 L MCV 82 L MCH 27 L MCHC RDW Plt Count Seg Neuts % (Manual) Lymphocytes % (Manual) Seg Neutrophils # Man Lymphocytes # (Manual) Monocytes # (Manual) APTT D-Dimer ABG pH POC ABG pCO2 POC ABG pO2 ABG Hemoglobin ABG Oxyhemoglobin ABG Sodium ABG Chloride ABG Glucose Carboxyhemoglobin Sodium Potassium Chloride 108.1 H Carbon Dioxide BUN 31 H Creatinine 0.6 L Glucose 126 H POC Glucose 125 H Lactic Acid Calcium 6.8 L Phosphorus Magnesium Ferritin AST ALT Alkaline Phosphatase Lactate Dehydrogenase Troponin T C-Reactive Protein Albumin Triglycerides HDL Cholesterol Arterial Blood Glucose Arterial Blood Ionized Calcium Urine WBC (Auto) Urine Creatinine Salicylates Acetaminophen 06/03/21 23:27 WBC RBC Hgb Hct MCV MCH MCHC RDW Plt Count Seg Neuts % (Manual) Lymphocytes % (Manual) Seg Neutrophils # Man Lymphocytes # (Manual) Monocytes # (Manual) APTT D-Dimer ABG pH POC ABG pCO2 POC ABG pO2 ABG Hemoglobin ABG Oxyhemoglobin ABG Sodium ABG Chloride ABG Glucose Carboxyhemoglobin Sodium Potassium Chloride Carbon Dioxide BUN Creatinine Glucose POC Glucose 125 H Lactic Acid Calcium Phosphorus Magnesium Ferritin AST ALT Alkaline Phosphatase Lactate Dehydrogenase Troponin T C-Reactive Protein Albumin Triglycerides HDL Cholesterol Arterial Blood Glucose Arterial Blood Ionized Calcium Urine WBC (Auto) Urine Creatinine Salicylates Acetaminophen Chest x-ray: other (none today) Allied health notes reviewed: nursing
--- NOTE | 2021-06-04 13:32 | Progress Note ---
Assessment and Plan Assessment and Plan # Encephalopathy -81 ys old male admitted on 05/26/21 with change mentation and and pneumonia pt. 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 Wean vent as tolerated, sedation holiday, daily ABG, spontaneous breathing trial daily, daily chest x-ray. # Acute kidney injury (SIXTO) with acute tubular necrosis (ATN) -IV fluid resuscitation therapy, BMP, repeat BMP in a.m., supportive care. Nephrology team consulted -Creatinine 5.4---0.7. # Hypernatremia -IV fluid resuscitation therapy, repeat BMP, repeat BMP in a.m. nephrology team consulted -162---142 # Pneumonia -Pneumonia protocol: Chest x-ray, CBC, CMP, IV antibiotic therapy, supplemental oxygen, pulse oximetry, # UTI (urinary tract infection) -CBC, CMP, IV antibiotic therapy, blood culture. # DVT prophylaxis -SCD to bilateral lower extremities while in bed, prophylactic anticoagulation # Advance care planning -Disease education conducted, care plan discussed, diagnosis discussed, prognosis discussed, patient is full code, patient family knowledges understanding and agree with care plan as well as quarded prognosis PLAN 1-OFF sedation 2- MRI brain is noted 3-EEG is noted 4- Treat underlying infection 5- Correct electrolytes abn. 6- CTA brain and neck 7- echo 8- ASA and lipitor will follow ++ Over all prognosisi is quarded The high probability of a clinically significant, sudden or life threatening d eterioration of the [cardiac, neuro, renal, ID, respiratory] system(s) required my full and direct attention, intervention and personal management. The aggregate critical care time was [30] minutes. [x] Data Review and interpretation [x] Patient assessment and monitoring of vital signs [x] Documentation [x] Medication orders and management Subjective Date of service: 06/04/21 Principal diagnosis: Ac. hypoxemic resp failure; CAP; Ac. encephalopathy; SIXTO; Sepsis; PUI COVID Interval history: status is unchanged he is off sedation family information is noted MRI brain is remarkable for right occipital infarct subacute , and EEG is remarkable for diffuse slowing CTA brain and neck are pending started on ASA 325 mg [place] tube and Lipitor ECHO is pending Objective - Vital Sign Vital Signs - 12hr 06/04/21 06/04/21 06/04/21 02:00 03:00 04:00 Pulse Rate 80 78 76 Pulse Rate [ From Monitor] Respiratory 19 12 19 Rate Blood Pressure 109/52 102/50 128/62 O2 Sat by Pulse 100 100 100 Oximetry 06/04/21 06/04/21 06/04/21 04:11 05:00 06:00 Pulse Rate 82 83 84 Pulse Rate [ From Monitor] Respiratory 22 19 Rate Blood Pressure 128/62 128/63 131/59 O2 Sat by Pulse 96 96 100 Oximetry 06/04/21 06/04/21 06/04/21 07:00 07:31 08:00 Pulse Rate 90 94 H 102 H Pulse Rate [ 103 H From Monitor] Respiratory 21 27 H 28 H Rate Blood Pressure 127/64 127/64 137/71 O2 Sat by Pulse 100 99 Oximetry 06/04/21 06/04/21 06/04/21 09:00 09:45 10:00 Pulse Rate 101 H 104 H 103 H Pulse Rate [ From Monitor] Respiratory 31 H 31 H Rate Blood Pressure 141/64 141/64 139/69 O2 Sat by Pulse 100 100 Oximetry 06/04/21 06/04/21 06/04/21 11:00 11:23 12:00 Pulse Rate 102 H 104 H 102 H Pulse Rate [ 102 H From Monitor] Respiratory 30 H 30 H 30 H Rate Blood Pressure 139/60 139/60 138/62 O2 Sat by Pulse 100 100 100 Oximetry - General Apperance Constitutional: comfortable - EENT EENT: PERRL, mucous membranes moist - Respiratory Respiratory: chest non-tender, lungs clear, rhonchi - Cardiovascular Cardiovascular: normal S1, normal S2 Extremities: no peripheral edema bilat, no clubbing, cyanosis - Gastrointestinal Gastrointestinal: normoactive bowel sounds - Integumentary Integumentary: normal - Neurologic Cranial nerve examination: PERRL, EOMI, intact (pupils constricted reactive more deviated right , EOMI , corneal intact , no facial asymmetry , ) Detailed motor examination: other (no movment to pain stimuli ) - Laboratory Findings CBC and BMP: 06/03/21 06:20 06/03/21 06:20 Abnormal Lab Findings: Abnormal Labs 05/26/21 05/26/21 05/26/21 17:08 17:08 17:08 WBC RBC Hgb Hct MCV MCH MCHC 31 L RDW 16.2 H Plt Count 80 L Seg Neuts % (Manual) Lymphocytes % (Manual) Seg Neutrophils # Man Lymphocytes # (Manual) Monocytes # (Manual) APTT 42.4 H D-Dimer 8255.81 H ABG pH POC ABG pCO2 POC ABG pO2 ABG Hemoglobin ABG Oxyhemoglobin ABG Sodium ABG Chloride ABG Glucose Carboxyhemoglobin Sodium 180 H* Potassium Chloride 140 H Carbon Dioxide 21 L BUN 118 H Creatinine 5.4 H Glucose 133 H POC Glucose Lactic Acid Calcium 8.1 L Phosphorus Magnesium Ferritin AST 97 H ALT 71 H Alkaline Phosphatase 138 H Lactate Dehydrogenase 550 H Troponin T 0.038 H C-Reactive Protein 4.20 H Albumin 3.3 L Triglycerides 150 H HDL Cholesterol 24 L Arterial Blood Glucose Arterial Blood Ionized Calcium Urine WBC (Auto) Urine Creatinine Salicylates Acetaminophen 05/26/21 05/26/21 05/26/21 17:08 17:08 17:08 WBC RBC Hgb Hct MCV MCH MCHC RDW Plt Count Seg Neuts % (Manual) Lymphocytes % (Manual) Seg Neutrophils # Man Lymphocytes # (Manual) Monocytes # (Manual) APTT D-Dimer ABG pH POC ABG pCO2 POC ABG pO2 ABG Hemoglobin ABG Oxyhemoglobin ABG Sodium ABG Chloride ABG Glucose Carboxyhemoglobin Sodium Potassium Chloride Carbon Dioxide BUN Creatinine Glucose POC Glucose Lactic Acid 3.90 H* Calcium Phosphorus Magnesium Ferritin 598.3 H AST ALT Alkaline Phosphatase Lactate Dehydrogenase Troponin T C-Reactive Protein Albumin Triglycerides HDL Cholesterol Arterial Blood Glucose Arterial Blood Ionized Calcium Urine WBC (Auto) Urine Creatinine Salicylates Acetaminophen < 5.0 L 05/26/21 05/26/21 05/26/21 17:08 17:27 23:28 WBC RBC Hgb Hct MCV MCH MCHC RDW Plt Count Seg Neuts % (Manual) Lymphocytes % (Manual) Seg Neutrophils # Man Lymphocytes # (Manual) Monocytes # (Manual) APTT D-Dimer ABG pH POC ABG pCO2 POC ABG pO2 453.5 H ABG Hemoglobin 11.5 L ABG Oxyhemoglobin 98.7 H ABG Sodium 198.2 H ABG Chloride ABG Glucose 116 H Carboxyhemoglobin 0.3 L Sodium Potassium Chloride Carbon Dioxide BUN Creatinine Glucose POC Glucose 182 H Lactic Acid Calcium Phosphorus Magnesium Ferritin AST ALT Alkaline Phosphatase Lactate Dehydrogenase Troponin T C-Reactive Protein Albumin Triglycerides HDL Cholesterol Arterial Blood Glucose 116 H Arterial Blood Ionized Calcium Urine WBC (Auto) Urine Creatinine Salicylates < 0.3 L Acetaminophen 05/26/21 05/26/21 05/27/21 Unknown Unknown 01:58 WBC RBC Hgb Hct MCV MCH MCHC RDW Plt Count Seg Neuts % (Manual) Lymphocytes % (Manual) Seg Neutrophils # Man Lymphocytes # (Manual) Monocytes # (Manual) APTT D-Dimer ABG pH POC ABG pCO2 POC ABG pO2 ABG Hemoglobin ABG Oxyhemoglobin ABG Sodium ABG Chloride ABG Glucose Carboxyhemoglobin Sodium Potassium Chloride Carbon Dioxide BUN Creatinine Glucose POC Glucose Lactic Acid 2.90 H* Calcium Phosphorus Magnesium Ferritin AST ALT Alkaline Phosphatase Lactate Dehydrogenase Troponin T C-Reactive Protein Albumin Triglycerides HDL Cholesterol Arterial Blood Glucose Arterial Blood Ionized Calcium Urine WBC (Auto) 16.0 H Urine Creatinine 51.6 H Salicylates Acetaminophen 05/27/21 05/27/21 05/27/21 02:00 02:00 03:19 WBC 27.1 H RBC Hgb 11.1 L Hct MCV MCH 27 L MCHC 31 L RDW 16.1 H Plt Count 62 L Seg Neuts % (Manual) 93.0 H Lymphocytes % (Manual) 3.0 L Seg Neutrophils # Man 25.2 H Lymphocytes # (Manual) 0.8 L Monocytes # (Manual) 1.1 H APTT D-Dimer ABG pH POC ABG pCO2 31.7 L POC ABG pO2 79.5 L ABG Hemoglobin 10.9 L ABG Oxyhemoglobin ABG Sodium 181.4 H ABG Chloride ABG Glucose 276 H Carboxyhemoglobin 0.1 L Sodium 180 H* Potassium Chloride 140 H Carbon Dioxide 19 L BUN 100 H Creatinine 4.3 H Glucose 272 H POC Glucose Lactic Acid Calcium 7.0 L Phosphorus 5.00 H Magnesium Ferritin AST 66 H ALT 64 H Alkaline Phosphatase Lactate Dehydrogenase Troponin T C-Reactive Protein Albumin 2.9 L Triglycerides HDL Cholesterol Arterial Blood Glucose 276 H Arterial Blood Ionized Calcium 4.1 L Urine WBC (Auto) Urine Creatinine Salicylates Acetaminophen 05/27/21 05/27/21 05/27/21 08:22 08:22 12:08 WBC RBC Hgb Hct MCV MCH MCHC RDW Plt Count Seg Neuts % (Manual) Lymphocytes % (Manual) Seg Neutrophils # Man Lymphocytes # (Manual) Monocytes # (Manual) APTT D-Dimer ABG pH POC ABG pCO2 POC ABG pO2 ABG Hemoglobin ABG Oxyhemoglobin ABG Sodium ABG Chloride ABG Glucose Carboxyhemoglobin Sodium 179 H* Potassium Chloride > 139 H Carbon Dioxide 21 L 19 L BUN 103 H 105 H Creatinine 4.2 H 4.2 H Glucose 271 H 217 H POC Glucose Lactic Acid 2.20 H* Calcium 7.3 L 7.0 L Phosphorus Magnesium Ferritin AST ALT Alkaline Phosphatase Lactate Dehydrogenase Troponin T C-Reactive Protein Albumin Triglycerides HDL Cholesterol Arterial Blood Glucose Arterial Blood Ionized Calcium Urine WBC (Auto) Urine Creatinine Salicylates Acetaminophen 05/27/21 05/27/21 05/27/21 12:14 18:03 23:15 WBC RBC Hgb Hct MCV MCH MCHC RDW Plt Count Seg Neuts % (Manual) Lymphocytes % (Manual) Seg Neutrophils # Man Lymphocytes # (Manual) Monocytes # (Manual) APTT D-Dimer ABG pH POC ABG pCO2 POC ABG pO2 ABG Hemoglobin ABG Oxyhemoglobin ABG Sodium ABG Chloride ABG Glucose Carboxyhemoglobin Sodium Potassium Chloride Carbon Dioxide BUN Creatinine Glucose POC Glucose 184 H 183 H 191 H Lactic Acid Calcium Phosphorus Magnesium Ferritin AST ALT Alkaline Phosphatase Lactate Dehydrogenase Troponin T C-Reactive Protein Albumin Triglycerides HDL Cholesterol Arterial Blood Glucose Arterial Blood Ionized Calcium Urine WBC (Auto) Urine Creatinine Salicylates Acetaminophen 05/28/21 05/28/21 05/28/21 03:19 05:15 08:47 WBC RBC Hgb Hct MCV MCH MCHC RDW Plt Count Seg Neuts % (Manual) Lymphocytes % (Manual) Seg Neutrophils # Man Lymphocytes # (Manual) Monocytes # (Manual) APTT D-Dimer ABG pH POC ABG pCO2 29.6 L POC ABG pO2 115.2 H ABG Hemoglobin 10.2 L ABG Oxyhemoglobin ABG Sodium 153.6 H ABG Chloride 129.0 H ABG Glucose 215 H Carboxyhemoglobin 0.3 L Sodium 159 H D Potassium Chloride 123.7 H Carbon Dioxide 20 L BUN 88 H Creatinine 2.9 H Glucose 177 H POC Glucose 184 H Lactic Acid Calcium 6.3 L Phosphorus Magnesium Ferritin AST ALT Alkaline Phosphatase Lactate Dehydrogenase Troponin T C-Reactive Protein Albumin Triglycerides HDL Cholesterol Arterial Blood Glucose 215 H Arterial Blood Ionized Calcium 3.7 L Urine WBC (Auto) Urine Creatinine Salicylates Acetaminophen 05/28/21 05/28/21 05/28/21 11:50 16:27 17:23 WBC RBC Hgb Hct MCV MCH MCHC RDW Plt Count Seg Neuts % (Manual) Lymphocytes % (Manual) Seg Neutrophils # Man Lymphocytes # (Manual) Monocytes # (Manual) APTT D-Dimer ABG pH POC ABG pCO2 POC ABG pO2 ABG Hemoglobin ABG Oxyhemoglobin ABG Sodium ABG Chloride ABG Glucose Carboxyhemoglobin Sodium 154 H Potassium Chloride Carbon Dioxide BUN Creatinine Glucose POC Glucose 130 H 113 H Lactic Acid Calcium Phosphorus Magnesium Ferritin AST ALT Alkaline Phosphatase Lactate Dehydrogenase Troponin T C-Reactive Protein Albumin Triglycerides HDL Cholesterol Arterial Blood Glucose Arterial Blood Ionized Calcium Urine WBC (Auto) Urine Creatinine Salicylates Acetaminophen 05/28/21 05/29/21 05/29/21 23:28 02:59 04:15 WBC RBC Hgb Hct MCV MCH MCHC RDW Plt Count Seg Neuts % (Manual) Lymphocytes % (Manual) Seg Neutrophils # Man Lymphocytes # (Manual) Monocytes # (Manual) APTT D-Dimer ABG pH 7.481 H POC ABG pCO2 24.6 L POC ABG pO2 ABG Hemoglobin 10.6 L ABG Oxyhemoglobin ABG Sodium 149.5 H ABG Chloride 122.0 H ABG Glucose 129 H Carboxyhemoglobin 0.3 L Sodium 159 H Potassium Chloride 124.0 H Carbon Dioxide 21 L BUN 88 H Creatinine 2.4 H Glucose 136 H POC Glucose 139 H Lactic Acid Calcium 6.8 L Phosphorus Magnesium Ferritin AST ALT Alkaline Phosphatase Lactate Dehydrogenase Troponin T C-Reactive Protein Albumin Triglycerides HDL Cholesterol Arterial Blood Glucose 129 H Arterial Blood Ionized Calcium 3.8 L Urine WBC (Auto) Urine Creatinine Salicylates Acetaminophen 05/29/21 05/29/21 05/29/21 05:13 15:35 18:05 WBC RBC Hgb Hct MCV MCH MCHC RDW Plt Count Seg Neuts % (Manual) Lymphocytes % (Manual) Seg Neutrophils # Man Lymphocytes # (Manual) Monocytes # (Manual) APTT D-Dimer ABG pH POC ABG pCO2 POC ABG pO2 ABG Hemoglobin ABG Oxyhemoglobin ABG Sodium ABG Chloride ABG Glucose Carboxyhemoglobin Sodium 160 H Potassium Chloride 124.8 H Carbon Dioxide 20 L BUN 83 H Creatinine 1.9 H Glucose 147 H POC Glucose 138 H 141 H Lactic Acid Calcium 7.1 L Phosphorus Magnesium Ferritin AST ALT Alkaline Phosphatase Lactate Dehydrogenase Troponin T C-Reactive Protein Albumin Triglycerides HDL Cholesterol Arterial Blood Glucose Arterial Blood Ionized Calcium Urine WBC (Auto) Urine Creatinine Salicylates Acetaminophen 05/29/21 05/30/21 05/30/21 23:22 01:20 04:33 WBC RBC Hgb Hct MCV MCH MCHC RDW Plt Count Seg Neuts % (Manual) Lymphocytes % (Manual) Seg Neutrophils # Man Lymphocytes # (Manual) Monocytes # (Manual) APTT D-Dimer ABG pH 7.484 H POC ABG pCO2 24.6 L POC ABG pO2 131.2 H ABG Hemoglobin 11.7 L ABG Oxyhemoglobin 98.1 H ABG Sodium 155.7 H ABG Chloride 126.0 H ABG Glucose 191 H Carboxyhemoglobin 0.1 L Sodium 162 H* Potassium Chloride 129.0 H Carbon Dioxide 19 L BUN 89 H Creatinine 2.1 H Glucose 190 H POC Glucose 160 H Lactic Acid Calcium 7.4 L Phosphorus Magnesium Ferritin AST ALT Alkaline Phosphatase Lactate Dehydrogenase Troponin T C-Reactive Protein Albumin Triglycerides HDL Cholesterol Arterial Blood Glucose 191 H Arterial Blood Ionized Calcium 4.1 L Urine WBC (Auto) Urine Creatinine Salicylates Acetaminophen 05/30/21 05/30/21 05/30/21 05:21 15:25 17:59 WBC RBC Hgb Hct MCV MCH MCHC RDW Plt Count Seg Neuts % (Manual) Lymphocytes % (Manual) Seg Neutrophils # Man Lymphocytes # (Manual) Monocytes # (Manual) APTT D-Dimer ABG pH POC ABG pCO2 POC ABG pO2 ABG Hemoglobin ABG Oxyhemoglobin ABG Sodium ABG Chloride ABG Glucose Carboxyhemoglobin Sodium 161 H* Potassium 3.4 L Chloride 131.7 H Carbon Dioxide 18 L BUN 77 H Creatinine 1.5 H Glucose 200 H POC Glucose 169 H 147 H Lactic Acid Calcium 7.2 L Phosphorus Magnesium Ferritin AST ALT Alkaline Phosphatase Lactate Dehydrogenase Troponin T C-Reactive Protein Albumin Triglycerides HDL Cholesterol Arterial Blood Glucose Arterial Blood Ionized Calcium Urine WBC (Auto) Urine Creatinine Salicylates Acetaminophen 05/30/21 05/31/21 05/31/21 23:34 04:33 05:29 WBC RBC Hgb Hct MCV MCH MCHC RDW Plt Count Seg Neuts % (Manual) Lymphocytes % (Manual) Seg Neutrophils # Man Lymphocytes # (Manual) Monocytes # (Manual) APTT D-Dimer ABG pH POC ABG pCO2 POC ABG pO2 ABG Hemoglobin ABG Oxyhemoglobin ABG Sodium ABG Chloride ABG Glucose Carboxyhemoglobin Sodium 154 H Potassium Chloride 123.6 H Carbon Dioxide 19 L BUN 52 H Creatinine Glucose 139 H POC Glucose 153 H 132 H Lactic Acid Calcium 7.1 L Phosphorus 2.30 L Magnesium Ferritin AST ALT Alkaline Phosphatase Lactate Dehydrogenase Troponin T C-Reactive Protein Albumin Triglycerides HDL Cholesterol Arterial Blood Glucose Arterial Blood Ionized Calcium Urine WBC (Auto) Urine Creatinine Salicylates Acetaminophen 05/31/21 05/31/21 05/31/21 11:47 15:23 17:18 WBC RBC Hgb Hct MCV MCH MCHC RDW Plt Count Seg Neuts % (Manual) Lymphocytes % (Manual) Seg Neutrophils # Man Lymphocytes # (Manual) Monocytes # (Manual) APTT D-Dimer ABG pH POC ABG pCO2 POC ABG pO2 ABG Hemoglobin ABG Oxyhemoglobin ABG Sodium ABG Chloride ABG Glucose Carboxyhemoglobin Sodium 149 H Potassium 3.4 L D Chloride 117.7 H Carbon Dioxide 21 L BUN 40 H Creatinine Glucose 139 H POC Glucose 114 H 108 H Lactic Acid Calcium 7.0 L Phosphorus Magnesium Ferritin AST ALT Alkaline Phosphatase Lactate Dehydrogenase Troponin T C-Reactive Protein Albumin Triglycerides HDL Cholesterol Arterial Blood Glucose Arterial Blood Ionized Calcium Urine WBC (Auto) Urine Creatinine Salicylates Acetaminophen 05/31/21 06/01/21 06/01/21 23:13 04:00 05:50 WBC RBC Hgb Hct MCV MCH MCHC RDW Plt Count Seg Neuts % (Manual) Lymphocytes % (Manual) Seg Neutrophils # Man Lymphocytes # (Manual) Monocytes # (Manual) APTT D-Dimer ABG pH 7.555 H POC ABG pCO2 27.6 L POC ABG pO2 65.6 L ABG Hemoglobin 9.2 L ABG Oxyhemoglobin ABG Sodium ABG Chloride 111.0 H ABG Glucose 143 H Carboxyhemoglobin 0.1 L Sodium Potassium Chloride Carbon Dioxide BUN Creatinine Glucose POC Glucose 126 H 121 H Lactic Acid Calcium Phosphorus Magnesium Ferritin AST ALT Alkaline Phosphatase Lactate Dehydrogenase Troponin T C-Reactive Protein Albumin Triglycerides HDL Cholesterol Arterial Blood Glucose 143 H Arterial Blood Ionized Calcium 3.7 L Urine WBC (Auto) Urine Creatinine Salicylates Acetaminophen 06/01/21 06/01/21 06/01/21 10:10 10:10 11:35 WBC 17.6 H RBC Hgb Hct MCV MCH 27 L MCHC RDW Plt Count 105 L Seg Neuts % (Manual) Lymphocytes % (Manual) Seg Neutrophils # Man Lymphocytes # (Manual) Monocytes # (Manual) APTT D-Dimer ABG pH POC ABG pCO2 POC ABG pO2 ABG Hemoglobin ABG Oxyhemoglobin ABG Sodium ABG Chloride ABG Glucose Carboxyhemoglobin Sodium Potassium 3.5 L Chloride Carbon Dioxide BUN 30 H Creatinine Glucose 137 H POC Glucose 112 H Lactic Acid Calcium 7.1 L Phosphorus 1.80 L D Magnesium 1.40 L Ferritin AST ALT Alkaline Phosphatase Lactate Dehydrogenase Troponin T C-Reactive Protein Albumin Triglycerides HDL Cholesterol Arterial Blood Glucose Arterial Blood Ionized Calcium Urine WBC (Auto) Urine Creatinine Salicylates Acetaminophen 06/01/21 06/02/21 06/02/21 17:41 05:24 09:50 WBC 17.1 H RBC 3.14 L Hgb 8.5 L D Hct 25.6 L D MCV 82 L MCH 27 L MCHC RDW Plt Count 124 L Seg Neuts % (Manual) Lymphocytes % (Manual) Seg Neutrophils # Man Lymphocytes # (Manual) Monocytes # (Manual) APTT D-Dimer ABG pH POC ABG pCO2 POC ABG pO2 ABG Hemoglobin ABG Oxyhemoglobin ABG Sodium ABG Chloride ABG Glucose Carboxyhemoglobin Sodium Potassium Chloride 108.1 H Carbon Dioxide BUN 31 H Creatinine 0.7 L Glucose 128 H POC Glucose 125 H Lactic Acid Calcium 6.1 L Phosphorus Magnesium Ferritin AST ALT Alkaline Phosphatase Lactate Dehydrogenase Troponin T C-Reactive Protein Albumin Triglycerides HDL Cholesterol Arterial Blood Glucose Arterial Blood Ionized Calcium Urine WBC (Auto) Urine Creatinine Salicylates Acetaminophen 06/02/21 06/03/21 06/03/21 18:43 00:25 05:43 WBC RBC Hgb Hct MCV MCH MCHC RDW Plt Count Seg Neuts % (Manual) Lymphocytes % (Manual) Seg Neutrophils # Man Lymphocytes # (Manual) Monocytes # (Manual) APTT D-Dimer ABG pH POC ABG pCO2 POC ABG pO2 ABG Hemoglobin ABG Oxyhemoglobin ABG Sodium ABG Chloride ABG Glucose Carboxyhemoglobin Sodium Potassium Chloride Carbon Dioxide BUN Creatinine Glucose POC Glucose 111 H 124 H 127 H Lactic Acid Calcium Phosphorus Magnesium Ferritin AST ALT Alkaline Phosphatase Lactate Dehydrogenase Troponin T C-Reactive Protein Albumin Triglycerides HDL Cholesterol Arterial Blood Glucose Arterial Blood Ionized Calcium Urine WBC (Auto) Urine Creatinine Salicylates Acetaminophen 06/03/21 06/03/21 06/03/21 06:20 06:20 17:46 WBC 19.4 H RBC 3.24 L Hgb 8.7 L Hct 26.7 L MCV 82 L MCH 27 L MCHC RDW Plt Count Seg Neuts % (Manual) Lymphocytes % (Manual) Seg Neutrophils # Man Lymphocytes # (Manual) Monocytes # (Manual) APTT D-Dimer ABG pH POC ABG pCO2 POC ABG pO2 ABG Hemoglobin ABG Oxyhemoglobin ABG Sodium ABG Chloride ABG Glucose Carboxyhemoglobin Sodium Potassium Chloride 108.1 H Carbon Dioxide BUN 31 H Creatinine 0.6 L Glucose 126 H POC Glucose 125 H Lactic Acid Calcium 6.8 L Phosphorus Magnesium Ferritin AST ALT Alkaline Phosphatase Lactate Dehydrogenase Troponin T C-Reactive Protein Albumin Triglycerides HDL Cholesterol Arterial Blood Glucose Arterial Blood Ionized Calcium Urine WBC (Auto) Urine Creatinine Salicylates Acetaminophen 06/03/21 23:27 WBC RBC Hgb Hct MCV MCH MCHC RDW Plt Count Seg Neuts % (Manual) Lymphocytes % (Manual) Seg Neutrophils # Man Lymphocytes # (Manual) Monocytes # (Manual) APTT D-Dimer ABG pH POC ABG pCO2 POC ABG pO2 ABG Hemoglobin ABG Oxyhemoglobin ABG Sodium ABG Chloride ABG Glucose Carboxyhemoglobin Sodium Potassium Chloride Carbon Dioxide BUN Creatinine Glucose POC Glucose 125 H Lactic Acid Calcium Phosphorus Magnesium Ferritin AST ALT Alkaline Phosphatase Lactate Dehydrogenase Troponin T C-Reactive Protein Albumin Triglycerides HDL Cholesterol Arterial Blood Glucose Arterial Blood Ionized Calcium Urine WBC (Auto) Urine Creatinine Salicylates Acetaminophen
[2021-06-04] MEDS: ASPIRIN EC 325 MG TAB PO SCH (13:52)
--- NOTE | 2021-06-04 16:05 | XRay Report ---
ABDOMEN 1 VIEW INDICATION / CLINICAL INFORMATION: NG TUBE PLACEMENT. COMPARISON: None available. FINDINGS: TUBES / LINES: Enteric tube is noted with tip in the stomach and sidehole likely regional to the edd roesophageal junction. BOWEL GAS PATTERN: Mild gaseous prominence of multiple bowel loops in the abdomen. FREE AIR / EXTRALUMINAL GAS: None seen. ADDITIONAL FINDINGS: No significant additional findings. IMPRESSION: 1. Enteric tube is noted with tip in the stomach and sidehole likely regional to the gastroesophageal junction. Advancement of 5-7 cm may yield more optimal positioning. Signer Name: Asaf Romero MD Signed: 06/04/2021 4:01 PM Workstation Name: [id number]
--- NOTE | 2021-06-04 16:48 | Progress Note ---
<MARIOBHUMIKA H. - Last Filed: 06/04/21 16:41> Assessment and Plan Assessment and plan: This 81-year-old male with hypertension and dementia admitted with acute hypoxic respiratory failure suspected, COVID-19 PUI, pneumonia, hypernatremia, volume depletion, urinary tract infection, toxic metabolic encephalopathy, SIXTO, sepsis Neuro: Acute metabolic encephalopathy -Aspiration/seizure precautions -Sedated with propofol while on mechanical ventilation, off for SBT -05/26 CT head shows no focal mass, hemorrhage, hydrocephalus or acute or large territorial infarct, mild to moderate mucosal thickening in the ethmoid with prior mastoidectomy noted on the right, vascular disease seen in the anterior and posterior circulation, moderate diffuse cerebral atrophy with anterior temporal lobe atrophy being the greatest, moderate to marked degree of hippocampal atrophy suggested bilaterally, suggestion of encephalomalacia in the inferior temporal lobe on the right as well as anterior temporal lobe with question prior branch infarct or trauma -Neurology consulted -06/03 EEG shows diffuse background slowing in 3-4 Hz noted throughout the methacholine, no focal slowing, no epileptiform discharge appreciated, findings suggestive of encephalopathic center toxic metabolic, drug effect, and/or anoxic, clinical correlation is in order Right posterior cerebral artery infarction -Neurology consulted, patient recommendations -06/03 MRI brain shows large recent right posterior cerebral artery infarction with evidence of cortical laminar necrosis, probably mobile atrophy with apparent focal atrophy involving the right temporal lobe -06/03 echocardiogram shows normal echocardiogram, LV normal size, normal LV wall thickness, LVEF 60-75 %, mild diastolic dysfunction present, mild to moderate calcification of the noncoronary cusp noted, mild aortic stenosis, mild AR, IVC is normal in size and collapses greater than 50% with inspiration, saline bubble contrast intravenous injection does not demonstrate PFO -06/03 CTA neck/head pending -Aspirin, Lipitor -Lipid panel pending -ST/PT/OT consulted, patient is currently vented CV: ?Hypertension -No recorded home medications -Amlodipine -Hydralazine as needed -Blood pressure monitoring per protocol ? CAD -05/26 CT chest/abdomen/pelvis without contrast dense atherosclerotic calcification of the thoracic aorta distribution of the coronary vessels, scattered patchy ill-defined densities within the mid and lower lung zone, mild prominence of both ureters, dense atherosclerotic calcification along the abdominal aorta without evidence of aneurysm -Need to follow-up with PCP Elevated troponin -Possibly NSTEMI in setting of SIXTO -Trend CE Respiratory: Acute hypoxemic respiratory failure -On mechanical ventilation -Wean mechanical ventilation as tolerated -VAP bundle -ABGs as needed -CXR daily for 7 days per protocol -Daily SBT -[facility] plans for trial extubation today FEN/GI: Acute kidney injury/ATN, resolved -Presented with BUN/creatinine of 118/5.4 -Nephrology consulted, appreciate recommendations -Strict intake and output -Daily weights -Nephrotoxic medications -Renally dose medications -On tube feedings -SSI, Accu-Cheks every 6 Protein calorie malnutrition -Nutrition consulted, patient recommendations Hypocalcemia -Repleted with IV calcium without change -Started on oral calcium replacement supplements -Trend BMP : Urinary Retention -White placed for urinary retention -Flomax -Added Proscar ID/Heme: Sepsis -Presented with with tachycardia, febrile to 102.8 degrees Fahrenheit, acute hypoxic respiratory failure, acute kidney injury, pneumonia on imaging, pyuria -s/p abx therapy -05/26 CT chest showed faint bilateral patchy pulmonary opacities suggestive of infectious process that is pneumonia -05/26 blood cultures x2 no growth after 5 days -05/26 sputum culture grew E. coli, Staph aureus (pansensitive) -05/31 blood cultures x2 no growth to date UTI -s/p abx therapy -05/26 UA with pyuria -05/26 urine culture with no growth to date Bilateral PNA -s/p abx therapy -seen on CT chest Anemia -Transfuse for hgb <7 -Stool guiac pending -05/23 coag studies: PT 14, INR 1.03 Leukocytosis -Trend CBC Thrombocytopenia (resolved) DVT/GI prophylaxis: Heparin subq, SCDs to bilateral LE while in bed, PPI Disposition: ICU Lines: condom cath, PIVs The high probability of a clinically significant, sudden or life threatening deterioration of the [respiratory, renal and electrolyte] system(s) required my full and direct attention, intervention and personal management. The aggregate critical care time was [35] minutes. This time is in addition to time spent performing reported procedures but includes the following: [x] Data Review and interpretation [x] Patient assessment and monitoring of vital signs [x] Documentation [x] Medication orders and management History Interval history: This 81-year-old male with hypertension and dementia who presents to [facility] ER on 05/26 with decreased responsiveness since 05/25 per family. Patient was placed on nasopharyngeal airway and bagged by EMS on route to [facility]. Upon arrival to emergency indices 05/27/2021. Patient with severe hypernatremia secondary to dehydration/vasomotor nephropathy. Continue IV fluid hydration per nephrology recommendations. Patient with a creatinine September 2019 of 0.7. On this admission patient was noted to have a creatinine of 5.4. Slightly improved today to 4.2. Etiology secondary to vasomotor nephropathy/acute kidney injury/volume depletion/dehydration. Follow-up urine studies. CT scan of the abdomen pelvis did not reveal any obstruction. CT chest revealed bilateral pulmonary opacities. Patient with elevated D-dimer that may be secondary to Covid coagu lopathy. Consider VQ scan. Unable to perform CTA given renal insufficiency. Await pulmonary consultation 05/28/2021. Hyponatremia has improved to 159. Continue IV fluid hydration per nephrology recommendations. Creatinine has also improved to 2.9. No obstruction per CT scan. COVID-19 testing negative on 05/27/2021. Continue IV antibiotics for bilateral pneumonia and UTI. Follow-up blood and urine cultures. Consider ID consultation patient remains on mechanical ventilation but undergoing PSV trials. Patient currently with PSV with FiO2 of 30% PEEP of 6 and pressure support of 10. Continue vent weaning per pulmonary. 05/29/2021. Hypernatremia persists with sodium improving to 154 yesterday evening but now back to 159. Creatinine has improved to 2.4. Nephrology following.Continue current antibiotics for pneumonia and UTI. Consider CTA of chest for elevated D-dimer when creatinine back to baseline. Patient currently on AC mode ventilation rate of 16, tidal volume 450, FiO2 30% and PEEP of 6. 05/30/2021. Sodium remains elevated at 162 and creatinine elevated at 2.1. Con tinue free water with 300 mL every 4 hours. Nephrology held IV D5W. Resume IV fluids per nephrology recommendations. CT scan of the abdomen negative for hydronephrosis. Continue IV antibiotics. Patient remains on mechanical ventilation AC mode rate of 20, tidal volume 450, FiO2 40% and a PEEP of 6. 7/12: Patient has hypernatremia improved to 149, this a.m. patient was noted to have a potassium of 4.5 and potassium and his D5 was discontinued and changed to D5W. This evening he was noted the patient had a potassium of 3.4 which was repleted. Patient was started to have hypophosphatemia today which was repleted. Antibiotics were escalated to's ceftriaxone for pansensitive E. coli patient received 7 days of therapy so repeat blood cultures were ordered. 06/01: CPAP trial yesterday lasted from 9am-5pm, will retry CPAP today. Replace Mg, Phos, K, DC IVF in setting of improved Na 06/02: Hypocalcemia today which was corrected. Given neuro status unchanged, Neuro consult requested who ordered MRI B and EEG. CPAP trial. drop in h/h, occult stool, coags, type and screen ordered. remove white, bladder scan and straight cath as needed 06/03: Hypocalcemia again today, started on PO Ca supplements, h/h stable from yesterday, MRI B pending, EEG completed, added proscar re RN needing to physically press on bladder for urine. Decrease in BP med. [facility] plans for trial extubation 06/04 MRI showed cerebral infarct, neurology , [facility] and Dr. Merrill aware. No acute events reported overnight. CPAP trial this a.m. General surgery consulted for the trach/PEG. Dr. Merrill and Dr. Guo spoke to family at bedside. Hospitalist Physical - Constitutional Vitals: Temp Pulse Resp BP Pulse Ox 100.6 F H 101 H 35 H 153/73 100 06/03/21 19:36 06/04/21 16:00 06/04/21 16:00 06/04/21 16:00 06/04/21 16:00 General appearance: Present: no acute distress, other (Response to tactile stimuli) - EENT Eyes: Present: PERRL ENT: other (Response to painful/tactile stimuli) - Neck Neck: Present: normal ROM - Respiratory Respiratory effort: normal Respiratory: bilateral: CTA - Cardiovascular Rhythm: regular Heart Sounds: Present: S1 & S2. Absent: systolic murmur, diastolic murmur - Extremities Extremities: no ischemia, pulses intact, pulses symmetrical, normal temperature, normal color Extremity abnormal: edema Peripheral Pulses: within normal limits - Abdominal General gastrointestinal: soft, non-tender, non-distended, normal bowel sounds - Integumentary Integumentary: Present: warm, dry - Psychiatric Psychiatric: other (Not interactive) - Neurologic Neurologic: other (Intact cough/gag, pupils equal round and reactive, minimally responsive to tactile stimuli) - Allied Health Allied health notes reviewed: nursing, RT, social work HEART Score - HEART Score Troponin: Troponin T 0.038 ng/mL (0.00-0.029) H 05/26/21 17:08 Results - Labs CBC & Chem 7: 06/03/21 06:20 06/03/21 06:20 Labs: Laboratory Last Values WBC 19.4 K/mm3 (4.5-11.0) H 06/03/21 06:20 RBC 3.24 M/mm3 (3.65-5.03) L 06/03/21 06:20 Hgb 8.7 gm/dl (11.8-15.2) L 06/03/21 06:20 Hct 26.7 % (35.5-45.6) L 06/03/21 06:20 MCV 82 fl (84-94) L 06/03/21 06:20 MCH 27 pg (28-32) L 06/03/21 06:20 MCHC 33 % (32-34) 06/03/21 06:20 RDW 14.2 % (13.2-15.2) 06/03/21 06:20 Plt Count 169 K/mm3 (140-440) 06/03/21 06:20 Lymph % (Auto) 30.3 % (13.4-35.0) 05/26/21 17:08 [place] % (Auto) 6.1 % (0.0-7.3) 05/26/21 17:08 Eos % (Auto) 1.0 % (0.0-4.3) 05/26/21 17:08 Baso % (Auto) 0.5 % (0.0-1.8) 05/26/21 17:08 Lymph # (Auto) 3.0 K/mm3 (1.2-5.4) 05/26/21 17:08 [place] # (Auto) 0.6 K/mm3 (0.0-0.8) 05/26/21 17:08 Eos # (Auto) 0.1 K/mm3 (0.0-0.4) 05/26/21 17:08 Baso # (Auto) 0.1 K/mm3 (0.0-0.1) 05/26/21 17:08 Add Manual Diff Complete 05/27/21 02:00 Total Counted 100 05/27/21 02:00 Seg Neutrophils % Stage Builder 05/27/21 02:00 Seg Neuts % (Manual) 93.0 % (40.0-70.0) H 05/27/21 02:00 Lymphocytes % (Manual) 3.0 % (13.4-35.0) L 05/27/21 02:00 Monocytes % (Manual) 4.0 % (0.0-7.3) 05/27/21 02:00 Nucleated RBC % Not Reportable 05/27/21 02:00 Seg Neutrophils # 6.1 K/mm3 (1.8-7.7) 05/26/21 17:08 Seg Neutrophils # Man 25.2 K/mm3 (1.8-7.7) H 05/27/21 02:00 Band Neutrophils # 0.0 K/mm3 05/27/21 02:00 Lymphocytes # (Manual) 0.8 K/mm3 (1.2-5.4) L 05/27/21 02:00 Abs React Lymphs (Man) 0.0 K/mm3 05/27/21 02:00 Monocytes # (Manual) 1.1 K/mm3 (0.0-0.8) H 05/27/21 02:00 Eosinophils # (Manual) 0.0 K/mm3 (0.0-0.4) 05/27/21 02:00 Basophils # (Manual) 0.0 K/mm3 (0.0-0.1) 05/27/21 02:00 Metamyelocytes # 0.0 K/mm3 05/27/21 02:00 Myelocytes # 0.0 K/mm3 05/27/21 02:00 Promyelocytes # 0.0 K/mm3 05/27/21 02:00 Blast Cells # 0.0 K/mm3 05/27/21 02:00 WBC Morphology Not Reportable 05/27/21 02:00 Hypersegmented Neuts Not Reportable 05/27/21 02:00 Hyposegmented Neuts Not Reportable 05/27/21 02:00 Hypogranular Neuts Not Reportable 05/27/21 02:00 Smudge Cells Not Reportable 05/27/21 02:00 Toxic Granulation Not Reportable 05/27/21 02:00 Toxic Vacuolation Not Reportable 05/27/21 02:00 Dohle Bodies Not Reportable 05/27/21 02:00 Pelger-Huet Anomaly Not Reportable 05/27/21 02:00 Daniel Rods Not Reportable 05/27/21 02:00 Platelet Estimate Not Reportable 05/27/21 02:00 Clumped Platelets Not Reportable 05/27/21 02:00 Plt Clumps, EDTA Not Reportable 05/27/21 02:00 Large Platelets Not Reportable 05/27/21 02:00 Giant Platelets Not Reportable 05/27/21 02:00 Platelet Satelliting Not Reportable 05/27/21 02:00 Plt Morphology Comment Not Reportable 05/27/21 02:00 RBC Morphology Normal 05/27/21 02:00 Dimorphic RBCs Not Reportable 05/27/21 02:00 Polychromasia Not Reportable 05/27/21 02:00 Hypochromasia Not Reportable 05/27/21 02:00 Poikilocytosis Not Reportable 05/27/21 02:00 Anisocytosis Not Reportable 05/27/21 02:00 Microcytosis Not Reportable 05/27/21 02:00 Macrocytosis Not Reportable 05/27/21 02:00 Spherocytes Not Reportable 05/27/21 02:00 Pappenheimer Bodies Not Reportable 05/27/21 02:00 Sickle Cells Not Reportable 05/27/21 02:00 Target Cells Not Reportable 05/27/21 02:00 Tear Drop Cells Not Reportable 05/27/21 02:00 Ovalocytes Not Reportable 05/27/21 02:00 Helmet Cells Not Reportable 05/27/21 02:00 [employer] Bodies Not Reportable 05/27/21 02:00 [place] Rings Not Reportable 05/27/21 02:00 [place] Cells Not Reportable 05/27/21 02:00 Bite Cells Not Reportable 05/27/21 02:00 Crenated Cell Not Reportable 05/27/21 02:00 Elliptocytes Not Reportable 05/27/21 02:00 Acanthocytes (Spur) Not Reportable 05/27/21 02:00 Rouleaux Not Reportable 05/27/21 02:00 Hemoglobin C Crystals Not Reportable 05/27/21 02:00 Schistocytes Not Reportable 05/27/21 02:00 Malaria parasites Not Reportable 05/27/21 02:00 Arik Bodies Not Reportable 05/27/21 02:00 Hem Pathologist Commnt No 05/27/21 02:00 PT 14.0 Sec. (12.2-14.9) 06/02/21 16:57 INR 1.03 (0.87-1.13) 06/02/21 16:57 APTT 42.4 Sec. (24.2-36.6) H 05/26/21 17:08 D-Dimer 8255.81 ng/mlDDU (0-234) H 05/26/21 17:08 ABG pH 7.555 (7.320-7.450) H 06/01/21 04:00 POC ABG pCO2 27.6 mmHg (32.0-48.0) L 06/01/21 04:00 POC ABG pO2 65.6 mmHg (83-108) L 06/01/21 04:00 POC ABG HCO3 23.9 06/01/21 04:00 ABG O2 Saturation 94.5 (0-100) 06/01/21 04:00 POC ABG Base Excess 2.0 06/01/21 04:00 ABG Hemoglobin 9.2 (12.0-17.5) L 06/01/21 04:00 ABG Oxyhemoglobin 94.1 (94-98) 06/01/21 04:00 ABG Methemoglobin 0.3 (0.0-1.5) 06/01/21 04:00 ABG Sodium 137.4 mmol/L (136.0-145.0) 06/01/21 04:00 ABG Potassium 3.5 mmol/L (3.40-4.50) 06/01/21 04:00 ABG Chloride 111.0 mmol/L (98-107) H 06/01/21 04:00 ABG Glucose 143 mg/dL (65-95) H 06/01/21 04:00 Carboxyhemoglobin 0.1 (0.5-1.5) L 06/01/21 04:00 FiO2 % 40.0 06/01/21 04:00 Sodium 144 mmol/L (137-145) 06/03/21 06:20 Potassium 4.0 mmol/L (3.6-5.0) 06/03/21 06:20 Chloride 108.1 mmol/L (98-107) H 06/03/21 06:20 Carbon Dioxide 26 mmol/L (22-30) 06/03/21 06:20 Anion Gap 14 mmol/L 06/03/21 06:20 BUN 31 mg/dL (9-20) H 06/03/21 06:20 Creatinine 0.6 mg/dL (0.8-1.3) L 06/03/21 06:20 Estimated GFR > 60 ml/min 06/03/21 06:20 BUN/Creatinine Ratio 52 % 06/03/21 06:20 Glucose 126 mg/dL (75-100) H 06/03/21 06:20 POC Glucose 104 mg/dL (70-105) 06/04/21 11:19 Lactic Acid 1.60 mmol/L (0.7-2.0) 05/27/21 12:08 Calcium 6.8 mg/dL (8.4-10.2) L 06/03/21 06:20 Phosphorus 2.50 mg/dL (2.5-4.5) 06/03/21 06:20 Magnesium 2.10 mg/dL (1.7-2.3) 06/02/21 05:24 Ferritin 598.3 ng/mL (30.0-300.0) H 05/26/21 17:08 Total Bilirubin 0.50 mg/dL (0.1-1.2) 05/27/21 02:00 AST 66 units/L (5-40) H 05/27/21 02:00 ALT 64 units/L (7-56) H 05/27/21 02:00 Alkaline Phosphatase 126 units/L (35-129) 05/27/21 02:00 Ammonia 46.0 umol/L (25-60) 05/26/21 17:08 Lactate Dehydrogenase 550 units/L (91-180) H 05/26/21 17:08 Troponin T 0.038 ng/mL (0.00-0.029) H 05/26/21 17:08 C-Reactive Protein 4.20 mg/dL (0.00-1.30) H 05/26/21 17:08 Total Protein 6.6 g/dL (6.3-8.2) 05/27/21 02:00 Albumin 2.9 g/dL (3.9-5) L 05/27/21 02:00 Albumin/Globulin Ratio 0.8 % 05/27/21 02:00 Triglycerides 150 mg/dL (2-149) H 05/26/21 17:08 Cholesterol 145 mg/dL (50-199) 05/26/21 17:08 LDL Cholesterol Direct 84 mg/dL (50-130) 05/26/21 17:08 HDL Cholesterol 24 mg/dL (40-59) L 05/26/21 17:08 Cholesterol/HDL Ratio 6.04 % 05/26/21 17:08 Procalcitonin 0.29 ng/mL (<0.15) 05/26/21 17:08 TSH 0.342 mlU/mL (0.270-4.200) 05/26/21 17:08 Arterial Blood Glucose 143 mg/dL (65-95) H 06/01/21 04:00 Arterial Blood Ionized Calcium 3.7 mg/dL (4.6-5.3) L 06/01/21 04:00 Urine Color Yellow (Yellow) 05/26/21 Unknown Urine Turbidity Clear (Clear) 05/26/21 Unknown Urine pH 5.0 (5.0-7.0) 05/26/21 Unknown Ur Specific Rolfe 1.011 (1.003-1.030) 05/26/21 Unknown Urine Protein <15 mg/dl mg/dL (Negative) 05/26/21 Unknown Urine Glucose (UA) Neg mg/dL (Negative) 05/26/21 Unknown Urine Ketones Neg mg/dL (Negative) 05/26/21 Unknown Urine Blood Sm (Negative) 05/26/21 Unknown Urine Nitrite Neg (Negative) 05/26/21 Unknown Urine Bilirubin Neg (Negative) 05/26/21 Unknown Urine Urobilinogen < 2.0 mg/dL (<2.0) 05/26/21 Unknown Ur Leukocyte Esterase Neg (Negative) 05/26/21 Unknown Urine WBC (Auto) 16.0 /HPF (0.0-6.0) H 05/26/21 Unknown Urine RBC (Auto) 2.0 /HPF (0.0-6.0) 05/26/21 Unknown Urine Bacteria (Auto) 1+ /HPF (Negative) 05/26/21 Unknown Urine Osmolality 392 Mosm/kg 05/26/21 Unknown Urine Creatinine 51.6 mg/dL (0.1-20.0) H 05/26/21 Unknown Urine Sodium 96 mmol/L 05/26/21 Unknown Random Vancomycin 14.8 ug/mL (0-40.0) 05/30/21 08:29 Salicylates < 0.3 mg/dL (2.8-20.0) L 05/26/21 17:08 Acetaminophen < 5.0 ug/mL (10.0-30.0) L 05/26/21 17:08 Coronavirus (PCR) Negative (Negative) 05/27/21 Unknown Blood Type O POSITIVE 06/02/21 16:57 Antibody Screen Negative 06/02/21 16:57 Microbiology: Microbiology 06/04/21 09:56 Peripheral/Venous Blood Culture - Preliminary Culture in Progress 05/31/21 15:23 Peripheral/Venous Blood Culture - Preliminary NO GROWTH AFTER 72 HOURS 05/31/21 15:23 Peripheral/Venous Blood Culture - Preliminary NO GROWTH AFTER 72 HOURS White/IV: Voiding Method Condom Catheter Active Medications - Current Medications Current Medications: Generic Name Dose Route Start Last Admin Trade Name Freq PRN Reason Stop Dose Admin Acetaminophen 650 mg 05/30/21 08:30 06/03/21 21:20 Acetaminophen 325 Mg/10.15 Ml Oral Liqd Unit Dose FEEDTUBE 650 mg Q6H PRN Administration Pain 1 -3, fever >100.5 Albuterol 2.5 mg 05/26/21 18:34 Albuterol 2.5 Mg/3 Ml Nebu IH Q3HRT PRN Shortness Of Breath Amlodipine Besylate 5 mg 06/03/21 10:00 06/04/21 09:45 Amlodipine 5 Mg Tab PO 5 mg QDAY ONDINA Administration Lipase/Protease/Amylase 1 each 05/28/21 08:24 Lipase 10,500/Protease 25,000/Amylase 43,750 (Units) Dr De Leon FEEDTUBE PRN PRN For Clogged Feeding Tube Aspirin 325 mg 06/04/21 10:00 06/04/21 13:52 Aspirin Ec 325 Mg Tab PO 325 mg QDAY ONDINA Administration Atorvastatin Calcium 40 mg 06/03/21 22:00 06/03/21 21:19 Atorvastatin 40 Mg Tab PO 40 mg QHS ONDINA Administration Calcium Carbonate/Glycine 1,250 mg 06/03/21 10:00 06/04/21 09:46 Calcium Carbonate 1250 Mg/5 Ml Oral Liqd FEEDTUBE 06/05/21 09:59 1,250 mg BID ONDINA Administration Famotidine 20 mg 05/28/21 10:00 06/04/21 09:47 Famotidine 20 Mg Tab PO 20 mg DAILY ONDINA Administration Finasteride 5 mg 06/03/21 10:00 06/04/21 09:46 Finasteride 5 Mg Tab PO 5 mg QDAY ONDINA Administration Heparin Sodium (Porcine) 5,000 unit 05/26/21 22:00 06/04/21 09:48 Heparin 5,000 Unit/1 Ml Vial SUB-Q 5,000 unit Q12HR ONDINA Administration Hydrophilic Ointment 1 applic 05/26/21 17:02 Lip Therapy Vaseline TP Q2HR PRN Dry Lips Propofol 1,000 mg in 100 mls @ 1.361 mls/hr 05/30/21 06:00 05/31/21 08:50 Diprivan 10 Mg/Ml IV 0 mcg/kg/min TITR ONDINA 0 mls/hr Titration Protocol 5 MCG/KG/MIN Multi-Ingred Cream/Lotion/Oil/Oint 1 applic 05/26/21 17:02 Mineral Oil/Petrolatum, White Ophth Oint 3.5 Gm OU Q4HR PRN Dry Eye(s) Senna/Docusate Sodium 1 tab 05/26/21 22:00 06/04/21 09:46 Sennosides/Docusate Sodium 8.6/50 Mg Tab FEEDTUBE Not Given BID ONDINA Simple Syrup 15 ml 05/28/21 08:24 Simple Syrup 15 Ml FEEDTUBE PRN PRN Hypoglycemia Simple Syrup 30 ml 05/28/21 08:24 Simple Syrup 15 Ml FEEDTUBE PRN PRN Hypoglycemia Sodium Bicarbonate 325 mg 05/28/21 08:24 Sodium Bicarbonate 325 Mg Tab FEEDTUBE PRN PRN For Clogged Feeding Tube Sodium Chloride 10 ml 05/26/21 22:00 06/04/21 13:52 Sodium Chloride 0.9% 10 Ml Flush Syringe IV 10 ml BID ONDINA Administration Sodium Chloride 10 ml 05/26/21 18:34 Sodium Chloride 0.9% 10 Ml Flush Syringe IV PRN PRN LINE FLUSH Tamsulosin HCl 0.8 mg 05/29/21 12:00 06/04/21 09:46 Tamsulosin 0.4 Mg Cap PO 0.8 mg QDAY ONDINA Administration Nutrition/Malnutrition Assess - Dietary Evaluation Nutrition/Malnutrition Findings: Nutrition Notes Start: 05/27/21 08:35 Freq: Status: Active Protocol: Document 06/04/21 10:42 (Rec: 06/04/21 10:43 [email or web address]) Nutrition Notes Initial or Follow up Reassessment Current Diagnosis Acute Kidney Injury,Sepsis, Hypertension,Respiratory Failure Other Pertinent Diagnosis UTI, encephalopathy, dehydration, COVID PUI Current Diet Glucerna 1.2 at 45 ml/hr Labs/Tests 06/03: Ca 6.8 Pertinent Medications Calcium carbonate Height 5 ft 2 in Weight 45.359 kg [place] Body Weight (kg) 53.63 BMI 18.3 Weight Status Underweight Subjective/Other Information FU for TF tolerance. Pt tolerating TF at goal rate. Pt had BM yesterday. Percent of energy/protein needs met: 100%/100% Burn Absent Trauma Absent Current % PO Negligible Minimum of two criteria No physical signs of malnutrition #1 Nutrition Diagnosis Inadequate oral intake Diagnosis Progress(for reassessment Continues documentation) Is patient on ventilator? Yes Is Patient Ambulatory and/or Out of Bed No REE-([facility]-confined to bed) 1258.548 Calculation Used for Recommendations [facility] Additional Notes Protein: (1.2-2g/kg) 54-91g Fluid: 1 ml/kcal or per MD Nutrition Intervention Change Diet Order: Continue Nutrition Support: Glucerna 1.2 at 45 ml/hr Flush 75 ml q4h. Kcal 1,296 Protein (gm) 65 Fluid (mL) 869 Goal #1 Meet at least 75% of protein and energy needs via TF Anticipated Discharge Needs: Unable to determine at this time Follow-Up By: 06/11/21 Additional Comments FU for TF tolerance <JASWINDER MERRILL - Last Filed: 06/05/21 10:59> Assessment and Plan Assessment and plan: Agree with assessment and plan as outlined by nurse practitioner as above, I personally examined the patient, spoke with the family pertaining to plan for trach and PEG, Dr. Guo, general surgery was at the bedside. They will make a decision tomorrow. Patient continues to be off sedation, critical car e/respiratory not able to wean patient off of the vent as of yet, failed CPAP trials. Hospitalist Physical - Constitutional Vitals: Temp Pulse Resp BP Pulse Ox 99.4 F 87 19 131/42 100 06/05/21 03:32 06/05/21 09:14 06/05/21 06:00 06/05/21 09:14 06/05/21 09:04 HEART Score - HEART Score Troponin: Troponin T 0.038 ng/mL (0.00-0.029) H 05/26/21 17:08 Results - Labs CBC & Chem 7: 06/05/21 09:41 06/05/21 04:59 Labs: Laboratory Last Values WBC 21.2 K/mm3 (4.5-11.0) H 06/05/21 09:41 RBC 2.83 M/mm3 (3.65-5.03) L 06/05/21 09:41 Hgb 7.7 gm/dl (11.8-15.2) L 06/05/21 09:41 Hct 23.5 % (35.5-45.6) L 06/05/21 09:41 MCV 83 fl (84-94) L 06/05/21 09:41 MCH 27 pg (28-32) L 06/05/21 09:41 MCHC 33 % (32-34) 06/05/21 09:41 RDW 14.6 % (13.2-15.2) 06/05/21 09:41 Plt Count 341 K/mm3 (140-440) D 06/05/21 09:41 Lymph % (Auto) 30.3 % (13.4-35.0) 05/26/21 17:08 [place] % (Auto) 6.1 % (0.0-7.3) 05/26/21 17:08 Eos % (Auto) 1.0 % (0.0-4.3) 05/26/21 17:08 Baso % (Auto) 0.5 % (0.0-1.8) 05/26/21 17:08 Lymph # (Auto) 3.0 K/mm3 (1.2-5.4) 05/26/21 17:08 [place] # (Auto) 0.6 K/mm3 (0.0-0.8) 05/26/21 17:08 Eos # (Auto) 0.1 K/mm3 (0.0-0.4) 05/26/21 17:08 Baso # (Auto) 0.1 K/mm3 (0.0-0.1) 05/26/21 17:08 Add Manual Diff Complete 05/27/21 02:00 Total Counted 100 05/27/21 02:00 Seg Neutrophils % Stage Builder 05/27/21 02:00 Seg Neuts % (Manual) 93.0 % (40.0-70.0) H 05/27/21 02:00 Lymphocytes % (Manual) 3.0 % (13.4-35.0) L 05/27/21 02:00 Monocytes % (Manual) 4.0 % (0.0-7.3) 05/27/21 02:00 Nucleated RBC % Not Reportable 05/27/21 02:00 Seg Neutrophils # 6.1 K/mm3 (1.8-7.7) 05/26/21 17:08 Seg Neutrophils # Man 25.2 K/mm3 (1.8-7.7) H 05/27/21 02:00 Band Neutrophils # 0.0 K/mm3 05/27/21 02:00 Lymphocytes # (Manual) 0.8 K/mm3 (1.2-5.4) L 05/27/21 02:00 Abs React Lymphs (Man) 0.0 K/mm3 05/27/21 02:00 Monocytes # (Manual) 1.1 K/mm3 (0.0-0.8) H 05/27/21 02:00 Eosinophils # (Manual) 0.0 K/mm3 (0.0-0.4) 05/27/21 02:00 Basophils # (Manual) 0.0 K/mm3 (0.0-0.1) 05/27/21 02:00 Metamyelocytes # 0.0 K/mm3 05/27/21 02:00 Myelocytes # 0.0 K/mm3 05/27/21 02:00 Promyelocytes # 0.0 K/mm3 05/27/21 02:00 Blast Cells # 0.0 K/mm3 05/27/21 02:00 WBC Morphology Not Reportable 05/27/21 02:00 Hypersegmented Neuts Not Reportable 05/27/21 02:00 Hyposegmented Neuts Not Reportable 05/27/21 02:00 Hypogranular Neuts Not Reportable 05/27/21 02:00 Smudge Cells Not Reportable 05/27/21 02:00 Toxic Granulation Not Reportable 05/27/21 02:00 Toxic Vacuolation Not Reportable 05/27/21 02:00 Dohle Bodies Not Reportable 05/27/21 02:00 Pelger-Huet Anomaly Not Reportable 05/27/21 02:00 Daniel Rods Not Reportable 05/27/21 02:00 Platelet Estimate Not Reportable 05/27/21 02:00 Clumped Platelets Not Reportable 05/27/21 02:00 Plt Clumps, EDTA Not Reportable 05/27/21 02:00 Large Platelets Not Reportable 05/27/21 02:00 Giant Platelets Not Reportable 05/27/21 02:00 Platelet Satelliting Not Reportable 05/27/21 02:00 Plt Morphology Comment Not Reportable 05/27/21 02:00 RBC Morphology Normal 05/27/21 02:00 Dimorphic RBCs Not Reportable 05/27/21 02:00 Polychromasia Not Reportable 05/27/21 02:00 Hypochromasia Not Reportable 05/27/21 02:00 Poikilocytosis Not Reportable 05/27/21 02:00 Anisocytosis Not Reportable 05/27/21 02:00 Microcytosis Not Reportable 05/27/21 02:00 Macrocytosis Not Reportable 05/27/21 02:00 Spherocytes Not Reportable 05/27/21 02:00 Pappenheimer Bodies Not Reportable 05/27/21 02:00 Sickle Cells Not Reportable 05/27/21 02:00 Target Cells Not Reportable 05/27/21 02:00 Tear Drop Cells Not Reportable 05/27/21 02:00 Ovalocytes Not Reportable 05/27/21 02:00 Helmet Cells Not Reportable 05/27/21 02:00 [employer] Bodies Not Reportable 05/27/21 02:00 [place] Rings Not Reportable 05/27/21 02:00 Bernard Cells Not Reportable 05/27/21 02:00 Bite Cells Not Reportable 05/27/21 02:00 Crenated Cell Not Reportable 05/27/21 02:00 Elliptocytes Not Reportable 05/27/21 02:00 Acanthocytes (Spur) Not Reportable 05/27/21 02:00 Rouleaux Not Reportable 05/27/21 02:00 Hemoglobin C Crystals Not Reportable 05/27/21 02:00 Schistocytes Not Reportable 05/27/21 02:00 Malaria parasites Not Reportable 05/27/21 02:00 Arik Bodies Not Reportable 05/27/21 02:00 Hem Pathologist Commnt No 05/27/21 02:00 PT 14.0 Sec. (12.2-14.9) 06/02/21 16:57 INR 1.03 (0.87-1.13) 06/02/21 16:57 APTT 42.4 Sec. (24.2-36.6) H 05/26/21 17:08 D-Dimer 8255.81 ng/mlDDU (0-234) H 05/26/21 17:08 ABG pH 7.555 (7.320-7.450) H 06/01/21 04:00 POC ABG pCO2 27.6 mmHg (32.0-48.0) L 06/01/21 04:00 POC ABG pO2 65.6 mmHg (83-108) L 06/01/21 04:00 POC ABG HCO3 23.9 06/01/21 04:00 ABG O2 Saturation 94.5 (0-100) 06/01/21 04:00 POC ABG Base Excess 2.0 06/01/21 04:00 ABG Hemoglobin 9.2 (12.0-17.5) L 06/01/21 04:00 ABG Oxyhemoglobin 94.1 (94-98) 06/01/21 04:00 ABG Methemoglobin 0.3 (0.0-1.5) 06/01/21 04:00 ABG Sodium 137.4 mmol/L (136.0-145.0) 06/01/21 04:00 ABG Potassium 3.5 mmol/L (3.40-4.50) 06/01/21 04:00 ABG Chloride 111.0 mmol/L (98-107) H 06/01/21 04:00 ABG Glucose 143 mg/dL (65-95) H 06/01/21 04:00 Carboxyhemoglobin 0.1 (0.5-1.5) L 06/01/21 04:00 FiO2 % 40.0 06/01/21 04:00 Sodium 150 mmol/L (137-145) H 06/05/21 04:59 Potassium 3.9 mmol/L (3.6-5.0) 06/05/21 04:59 Chloride 112.0 mmol/L (98-107) H 06/05/21 04:59 Carbon Dioxide 27 mmol/L (22-30) 06/05/21 04:59 Anion Gap 15 mmol/L 06/05/21 04:59 BUN 36 mg/dL (9-20) H 06/05/21 04:59 Creatinine 0.6 mg/dL (0.8-1.3) L 06/05/21 04:59 Estimated GFR > 60 ml/min 06/05/21 04:59 BUN/Creatinine Ratio 60 % 06/05/21 04:59 Glucose 113 mg/dL (75-100) H 06/05/21 04:59 POC Glucose 110 mg/dL (70-105) H 06/05/21 05:07 Lactic Acid 1.60 mmol/L (0.7-2.0) 05/27/21 12:08 Calcium 7.9 mg/dL (8.4-10.2) L D 06/05/21 04:59 Phosphorus 2.50 mg/dL (2.5-4.5) 06/03/21 06:20 Magnesium 2.10 mg/dL (1.7-2.3) 06/02/21 05:24 Ferritin 598.3 ng/mL (30.0-300.0) H 05/26/21 17:08 Total Bilirubin 0.50 mg/dL (0.1-1.2) 05/27/21 02:00 AST 66 units/L (5-40) H 05/27/21 02:00 ALT 64 units/L (7-56) H 05/27/21 02:00 Alkaline Phosphatase 126 units/L (35-129) 05/27/21 02:00 Ammonia 46.0 umol/L (25-60) 05/26/21 17:08 Lactate Dehydrogenase 550 units/L (91-180) H 05/26/21 17:08 Troponin T 0.038 ng/mL (0.00-0.029) H 05/26/21 17:08 C-Reactive Protein 4.20 mg/dL (0.00-1.30) H 05/26/21 17:08 Total Protein 6.6 g/dL (6.3-8.2) 05/27/21 02:00 Albumin 2.9 g/dL (3.9-5) L 05/27/21 02:00 Albumin/Globulin Ratio 0.8 % 05/27/21 02:00 Triglycerides 150 mg/dL (2-149) H 05/26/21 17:08 Cholesterol 145 mg/dL (50-199) 05/26/21 17:08 LDL Cholesterol Direct 84 mg/dL (50-130) 05/26/21 17:08 HDL Cholesterol 24 mg/dL (40-59) L 05/26/21 17:08 Cholesterol/HDL Ratio 6.04 % 05/26/21 17:08 Procalcitonin 0.29 ng/mL (<0.15) 05/26/21 17:08 TSH 0.342 mlU/mL (0.270-4.200) 05/26/21 17:08 Arterial Blood Glucose 143 mg/dL (65-95) H 06/01/21 04:00 Arterial Blood Ionized Calcium 3.7 mg/dL (4.6-5.3) L 06/01/21 04:00 Urine Color Yellow (Yellow) 05/26/21 Unknown Urine Turbidity Clear (Clear) 05/26/21 Unknown Urine pH 5.0 (5.0-7.0) 05/26/21 Unknown Ur Specific Rolfe 1.011 (1.003-1.030) 05/26/21 Unknown Urine Protein <15 mg/dl mg/dL (Negative) 05/26/21 Unknown Urine Glucose (UA) Neg mg/dL (Negative) 05/26/21 Unknown Urine Ketones Neg mg/dL (Negative) 05/26/21 Unknown Urine Blood Sm (Negative) 05/26/21 Unknown Urine Nitrite Neg (Negative) 05/26/21 Unknown Urine Bilirubin Neg (Negative) 05/26/21 Unknown Urine Urobilinogen < 2.0 mg/dL (<2.0) 05/26/21 Unknown Ur Leukocyte Esterase Neg (Negative) 05/26/21 Unknown Urine WBC (Auto) 16.0 /HPF (0.0-6.0) H 05/26/21 Unknown Urine RBC (Auto) 2.0 /HPF (0.0-6.0) 05/26/21 Unknown Urine Bacteria (Auto) 1+ /HPF (Negative) 05/26/21 Unknown Urine Osmolality 392 Mosm/kg 05/26/21 Unknown Urine Creatinine 51.6 mg/dL (0.1-20.0) H 05/26/21 Unknown Urine Sodium 96 mmol/L 05/26/21 Unknown Random Vancomycin 14.8 ug/mL (0-40.0) 05/30/21 08:29 Salicylates < 0.3 mg/dL (2.8-20.0) L 05/26/21 17:08 Acetaminophen < 5.0 ug/mL (10.0-30.0) L 05/26/21 17:08 Coronavirus (PCR) Negative (Negative) 05/27/21 Unknown Blood Type O POSITIVE 06/02/21 16:57 Antibody Screen Negative 06/02/21 16:57 Microbiology: Microbiology 06/04/21 15:59 Peripheral/Venous Blood Culture - Preliminary Culture in Progress 05/31/21 15:23 Peripheral/Venous Blood Culture - Preliminary NO GROWTH AFTER 4 DAYS 05/31/21 15:23 Peripheral/Venous Blood Culture - Preliminary NO GROWTH AFTER 4 DAYS 06/04/21 09:56 Peripheral/Venous Blood Culture - Preliminary Culture in Progress White/IV: Voiding Method Condom Catheter Active Medications - Current Medications Current Medications: Generic Name Dose Route Start Last Admin Trade Name Freq PRN Reason Stop Dose Admin Acetaminophen 650 mg 05/30/21 08:30 06/03/21 21:20 Acetaminophen 325 Mg/10.15 Ml Oral Liqd Unit Dose FEEDTUBE 650 mg Q6H PRN Administration Pain 1 -3, fever >100.5 Albuterol 2.5 mg 05/26/21 18:34 Albuterol 2.5 Mg/3 Ml Nebu IH Q3HRT PRN Shortness Of Breath Amlodipine Besylate 5 mg 06/03/21 10:00 06/05/21 09:14 Amlodipine 5 Mg Tab PO 5 mg QDAY ONDINA Administration Lipase/Protease/Amylase 1 each 05/28/21 08:24 Lipase 10,500/Protease 25,000/Amylase 43,750 (Units) Dr Cap FEEDTUBE PRN PRN For Clogged Feeding Tube Aspirin 325 mg 06/04/21 10:00 06/05/21 09:14 Aspirin Ec 325 Mg Tab PO 325 mg QDAY ONDINA Administration Atorvastatin Calcium 40 mg 06/03/21 22:00 06/04/21 21:24 Atorvastatin 40 Mg Tab PO 40 mg QHS ONDINA Administration Famotidine 20 mg 05/28/21 10:00 06/05/21 09:15 Famotidine 20 Mg Tab PO 20 mg DAILY ONDINA Administration Finasteride 5 mg 06/03/21 10:00 06/05/21 09:15 Finasteride 5 Mg Tab PO 5 mg QDAY ONDINA Administration Heparin Sodium (Porcine) 5,000 unit 05/26/21 22:00 06/05/21 09:14 Heparin 5,000 Unit/1 Ml Vial SUB-Q 5,000 unit Q12HR ONDINA Administration Hydrophilic Ointment 1 applic 05/26/21 17:02 Lip Therapy Vaseline TP Q2HR PRN Dry Lips Propofol 1,000 mg in 100 mls @ 1.361 mls/hr 05/30/21 06:00 05/31/21 08:50 Diprivan 10 Mg/Ml IV 0 mcg/kg/min TITR ONDINA 0 mls/hr Titration Protocol 5 MCG/KG/MIN Multi-Ingred Cream/Lotion/Oil/Oint 1 applic 05/26/21 17:02 Mineral Oil/Petrolatum, White Ophth Oint 3.5 Gm OU Q4HR PRN Dry Eye(s) Senna/Docusate Sodium 1 tab 05/26/21 22:00 06/05/21 09:15 Sennosides/Docusate Sodium 8.6/50 Mg Tab FEEDTUBE Not Given BID ONDINA Simple Syrup 15 ml 05/28/21 08:24 Simple Syrup 15 Ml FEEDTUBE PRN PRN Hypoglycemia Simple Syrup 30 ml 05/28/21 08:24 Simple Syrup 15 Ml FEEDTUBE PRN PRN Hypoglycemia Sodium Bicarbonate 325 mg 05/28/21 08:24 Sodium Bicarbonate 325 Mg Tab FEEDTUBE PRN PRN For Clogged Feeding Tube Sodium Chloride 10 ml 05/26/21 22:00 06/05/21 09:15 Sodium Chloride 0.9% 10 Ml Flush Syringe IV 10 ml BID ONDINA Administration Sodium Chloride 10 ml 05/26/21 18:34 Sodium Chloride 0.9% 10 Ml Flush Syringe IV PRN PRN LINE FLUSH Tamsulosin HCl 0.8 mg 05/29/21 12:00 06/05/21 09:14 Tamsulosin 0.4 Mg Cap PO 0.8 mg QDAY ONDINA Administration Nutrition/Malnutrition Assess - Dietary Evaluation Nutrition/Malnutrition Findings: Nutrition Notes Start: 05/27/21 08:35 Freq: Status: Active Protocol: Document 06/04/21 10:42 (Rec: 06/04/21 10:43 [email or web address]) Nutrition Notes Initial or Follow up Reassessment Current Diagnosis Acute Kidney Injury,Sepsis, Hypertension,Respiratory Failure Other Pertinent Diagnosis UTI, encephalopathy, dehydration, COVID PUI Current Diet Glucerna 1.2 at 45 ml/hr Labs/Tests 06/03: Ca 6.8 Pertinent Medications Calcium carbonate Height 5 ft 2 in Weight 45.359 kg [place] Body Weight (kg) 53.63 BMI 18.3 Weight Status Underweight Subjective/Other Information FU for TF tolerance. Pt tolerating TF at goal rate. Pt had BM yesterday. Percent of energy/protein needs met: 100%/100% Burn Absent Trauma Absent Current % PO Negligible Minimum of two criteria No physical signs of malnutrition #1 Nutrition Diagnosis Inadequate oral intake Diagnosis Progress(for reassessment Continues documentation) Is patient on ventilator? Yes Is Patient Ambulatory and/or Out of Bed No REE-([facility]-confined to bed) 1258.548 Calculation Used for Recommendations [facility] Additional Notes Protein: (1.2-2g/kg) 54-91g Fluid: 1 ml/kcal or per MD Nutrition Intervention Change Diet Order: Continue Nutrition Support: Glucerna 1.2 at 45 ml/hr Flush 75 ml q4h. Kcal 1,296 Protein (gm) 65 Fluid (mL) 869 Goal #1 Meet at least 75% of protein and energy needs via TF Anticipated Discharge Needs: Unable to determine at this time Follow-Up By: 06/11/21 Additional Comments FU for TF tolerance
--- NOTE | 2021-06-04 20:20 | Consultation ---
History of Present Illness Consult date: 06/04/21 Chief complaint: CVA - History of present illness History of present illness: 81 yo male s/p CVA and now with ventilator dependence. Asked to place trach and PEG Past History Past Medical History: hypertension, other (See HPI) Past Surgical History: No surgical history, Other (Unable to obtain) Social history: no significant social history, other (Unable to obtain) Family history: no significant family history, other (Unable to obtain) Medications and Allergies Allergies Allergy/AdvReac Type Severity Reaction Status Date / Time No Known Allergies Allergy Verified 05/29/21 18:46 Home Medications Medication Instructions Recorded Confirmed Last Taken Type No Known Home Medications [No 05/26/21 05/26/21 Unknown History Reported Home Medications] Active Meds: Active Medications Acetaminophen (Acetaminophen 325 Mg/10.15 Ml Oral Liqd Unit Dose) 650 mg FEEDTUBE Q6H PRN PRN Reason: Pain 1 -3, fever >100.5 Last Admin: 06/03/21 21:20 Dose: 650 mg Documented by: Albuterol (Albuterol 2.5 Mg/3 Ml Nebu) 2.5 mg IH Q3HRT PRN PRN Reason: Shortness Of Breath Amlodipine Besylate (Amlodipine 5 Mg Tab) 5 mg PO QDAY [facility] Last Admin: 06/04/21 09:45 Dose: 5 mg Documented by: Lipase/Protease/Amylase (Lipase 10,500/Protease 25,000/Amylase 43,750 (Units) Dr De Leon) 1 each FEEDTUBE PRN PRN PRN Reason: For Clogged Feeding Tube Aspirin (Aspirin Ec 325 Mg Tab) 325 mg PO QDAY [facility] Last Admin: 06/04/21 13:52 Dose: 325 mg Documented by: Atorvastatin Calcium (Atorvastatin 40 Mg Tab) 40 mg PO QHS [facility] Last Admin: 06/03/21 21:19 Dose: 40 mg Documented by: Calcium Carbonate/Glycine (Calcium Carbonate 1250 Mg/5 Ml Oral Liqd) 1,250 mg FEEDTUBE BID [facility] Stop: 06/05/21 09:59 Last Admin: 06/04/21 09:46 Dose: 1,250 mg Documented by: Famotidine (Famotidine 20 Mg Tab) 20 mg PO DAILY [facility] Last Admin: 06/04/21 09:47 Dose: 20 mg Documented by: Finasteride (Finasteride 5 Mg Tab) 5 mg PO QDAY [facility] Last Admin: 06/04/21 09:46 Dose: 5 mg Documented by: Heparin Sodium (Porcine) (Heparin 5,000 Unit/1 Ml Vial) 5,000 unit SUB-Q Q12HR [facility] Last Admin: 06/04/21 09:48 Dose: 5,000 unit Documented by: Hydrophilic Ointment (Lip Therapy Vaseline) 1 applic TP Q2HR PRN PRN Reason: Dry Lips Propofol (Diprivan 10 Mg/Ml) 1,000 mg in 100 mls @ 1.361 mls/hr IV TITR [facility]; Protocol Last Titration: 05/31/21 08:50 Dose: 0 mcg/kg/min, 0 mls/hr Documented by: Multi-Ingred Cream/Lotion/Oil/Oint (Mineral Oil/Petrolatum, White Ophth Oint 3.5 Gm) 1 applic OU Q4HR PRN PRN Reason: Dry Eye(s) Senna/Docusate Sodium (Sennosides/Docusate Sodium 8.6/50 Mg Tab) 1 tab FEEDTUBE BID [facility] Last Admin: 06/04/21 09:46 Dose: Not Given Documented by: Simple Syrup (Simple Syrup 15 Ml) 15 ml FEEDTUBE PRN PRN PRN Reason: Hypoglycemia Simple Syrup (Simple Syrup 15 Ml) 30 ml FEEDTUBE PRN PRN PRN Reason: Hypoglycemia Sodium Bicarbonate (Sodium Bicarbonate 325 Mg Tab) 325 mg FEEDTUBE PRN PRN PRN Reason: For Clogged Feeding Tube Sodium Chloride (Sodium Chloride 0.9% 10 Ml Flush Syringe) 10 ml IV BID [facility] Last Admin: 06/04/21 13:52 Dose: 10 ml Documented by: Sodium Chloride (Sodium Chloride 0.9% 10 Ml Flush Syringe) 10 ml IV PRN PRN PRN Reason: LINE FLUSH Tamsulosin HCl (Tamsulosin 0.4 Mg Cap) 0.8 mg PO QDAY [facility] Last Admin: 06/04/21 09:46 Dose: 0.8 mg Documented by: Review of Systems ROS unobtainable: due to mental status Exam Vital Signs Temp Pulse Resp BP Pulse Ox 102.8 F H 118 H 20 203/95 100 05/26/21 17:00 05/26/21 17:00 05/26/21 17:00 05/26/21 17:00 05/26/21 17:00 - General physical appearance Positive: well developed, well nourished, no distress - Eyes Positive: PERRL, normal occular movement - ENT Positive: normal pinna, normal nares, normal mucosa, no hearing loss, no con gestion - Neck Positive: no masses, no bruits, trachea midline, no venous distension - Respiratory Positive: normal expansion, normal respiratory effort, clear to auscultation - Cardiovascular Rhythm: regular Heart Sounds: Present: S1 & S2. Absent: rub, click - Extremities Extremities: no ischemia, pulses symmetrical, No edema - Breasts Breasts: normal, no mass, no skin changes - Abdomen Abdomen: Present: soft, bowel sounds normal. Absent: tender, distended Hernia: none - Genitourinary Male Genitourinary: normal Female Genitourinary: normal - Integumentary no rash, no growths, no abnormal pigmentation Results - Labs 06/03/21 06:20 06/03/21 06:20 Abnormal lab results 06/03/21 06/04/21 Range/Units 23:27 17:29 POC Glucose 125 H 116 H (70-105) mg/dL Assessment and Plan - Patient Problems (1) Acute respiratory failure Current Visit: Yes Status: Acute Plan to address problem: 1) Pt's and family to decide if they want to proceed. We will make a final decision tomorrow.
[2021-06-05 05:51] LABS: Blood Urea Nitrogen 36 mg/dL (9-20); Calcium 7.9 mg/dL (8.4-10.2); Hemolysis Index 14
[2021-06-05 05:54] LABS: BUN/Creatinine Ratio 60
[2021-06-05] MEDS: HEPARIN 5,000 UNIT/1 ML VIAL SUB-Q SCH ×2 (09:14→22:29)
[2021-06-05] MEDS: TAMSULOSIN 0.4 MG CAP PO SCH (09:14)
[2021-06-05] MEDS: amLODIPine 5 MG TAB PO SCH (09:14)
[2021-06-05] MEDS: ASPIRIN EC 325 MG TAB PO SCH (09:14)
[2021-06-05] MEDS: SENNOSIDES/DOCUSATE SODIUM 8.6/50 MG TAB FEEDTUBE SCH ×2 (09:15→22:29)
[2021-06-05] MEDS: FINASTERIDE 5 MG TAB PO SCH (09:15)
[2021-06-05] MEDS: FAMOTIDINE 20 MG TAB PO SCH (09:15)
--- NOTE | 2021-06-05 09:44 | Progress Note ---
Assessment and Plan 1. Acute kidney injury: Vasomotor SIXTO in the volume depletion / dehydration. CT abdomen negative for hydro. Monitor renal function. Creatinine level is better. Non-oliguric. Avoid nephrotoxic agents. Meds dosage based on GFR. 2. FEN: Hypernatremia, water flushes increased, monitor. Metabolic acidosis, improved, monitor. Monitor lytes. 3. Acute respiratory failure with hypoxia: 2/2 PNA. Intubated, on vent. 4. Pneumonia, POA: Covid test negative. Follow cultures. 5. Elevated Troponin: Monitor. 6. Hypertension: Monitor BP. Meds as appropriate. 7. 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 Followed by Neuro. Prognosis guarded. Subjective: Patient was seen and examined at the bedside. Examination: General appearance: well-developed, thin built, appears stated age, intubated, on vent HEENT: ATNC, pupils equal Neck: supple Respiratory: coarse breath sounds Cardiology: regular, S1S2, no murmur Gastrointestinal: soft, bowel sounds heard, not tender Integumentary: no rash, warm and dry Neurologic: slight grimace Ext: no edema Subjective Date of service: 06/05/21 Principal diagnosis: Ac. hypoxemic resp failure; CAP; Ac. encephalopathy; SIXTO; Sepsis; PUI COVID Objective - Vital Signs Vital signs: Vital Signs - 12hr 06/04/21 06/04/21 06/04/21 22:00 23:00 23:55 Temperature 99.4 F Pulse Rate 101 H 94 H Pulse Rate [ From Monitor] Respiratory 25 H 22 Rate Blood Pressure 150/71 127/64 O2 Sat by Pulse 98 100 Oximetry 06/05/21 06/05/21 06/05/21 00:00 00:22 01:00 Temperature Pulse Rate 96 H 97 H 96 H Pulse Rate [ 101 H From Monitor] Respiratory 24 23 Rate Blood Pressure 127/64 131/56 127/60 O2 Sat by Pulse 100 99 100 Oximetry 06/05/21 06/05/21 06/05/21 02:00 03:00 03:30 Temperature Pulse Rate 94 H 92 H 91 H Pulse Rate [ From Monitor] Respiratory 15 18 Rate Blood Pressure 119/62 126/57 O2 Sat by Pulse 100 100 100 Oximetry 06/05/21 06/05/21 06/05/21 03:32 04:00 05:00 Temperature 99.4 F Pulse Rate 82 94 H Pulse Rate [ 101 H From Monitor] Respiratory 22 26 H Rate Blood Pressure 131/53 135/61 O2 Sat by Pulse 100 100 Oximetry 06/05/21 06/05/21 06/05/21 06:00 09:04 09:14 Temperature Pulse Rate 93 H 88 87 Pulse Rate [ From Monitor] Respiratory 19 Rate Blood Pressure 139/62 131/62 131/42 O2 Sat by Pulse 99 100 Oximetry - Lab 06/05/21 09:41 06/05/21 04:59 Most recent lab results ABG pH 7.555 (7.320-7.450) H 06/01/21 04:00 ABG O2 Saturation 94.5 (0-100) 06/01/21 04:00 Calcium 7.9 mg/dL (8.4-10.2) L D 06/05/21 04:59 Phosphorus 2.50 mg/dL (2.5-4.5) 06/03/21 06:20 Magnesium 2.10 mg/dL (1.7-2.3) 06/02/21 05:24 Urine Creatinine 51.6 mg/dL (0.1-20.0) H 05/26/21 Unknown Urine Sodium 96 mmol/L 05/26/21 Unknown Medications & Allergies - Medications Allergies/Adverse Reactions: Allergies No Known Allergies Allergy (Verified 05/29/21 18:46) Home Medications: Home Medications Medication Instructions Recorded Confirmed Last Taken Type No Known Home Medications [No 05/26/21 05/26/21 Unknown History Reported Home Medications] Active Medications: Generic Name Dose Route Start Last Admin Trade Name Freq PRN Reason Stop Dose Admin Acetaminophen 650 mg 05/30/21 08:30 06/03/21 21:20 Acetaminophen 325 Mg/10.15 Ml Oral Liqd Unit Dose FEEDTUBE 650 mg Q6H PRN Administration Pain 1 -3, fever >100.5 Albuterol 2.5 mg 05/26/21 18:34 Albuterol 2.5 Mg/3 Ml Nebu IH Q3HRT PRN Shortness Of Breath Amlodipine Besylate 5 mg 06/03/21 10:00 06/05/21 09:14 Amlodipine 5 Mg Tab PO 5 mg QDAY ONDINA Administration Lipase/Protease/Amylase 1 each 05/28/21 08:24 Lipase 10,500/Protease 25,000/Amylase 43,750 (Units) Dr De Leon FEEDTUBE PRN PRN For Clogged Feeding Tube Aspirin 325 mg 06/04/21 10:00 06/05/21 09:14 Aspirin Ec 325 Mg Tab PO 325 mg QDAY ONDINA Administration Atorvastatin Calcium 40 mg 06/03/21 22:00 06/04/21 21:24 Atorvastatin 40 Mg Tab PO 40 mg QHS ONDINA Administration Calcium Carbonate/Glycine 1,250 mg 06/03/21 10:00 06/04/21 21:24 Calcium Carbonate 1250 Mg/5 Ml Oral Liqd FEEDTUBE 06/05/21 09:59 1,250 mg BID ONDINA Administration Famotidine 20 mg 05/28/21 10:00 06/05/21 09:15 Famotidine 20 Mg Tab PO 20 mg DAILY ONDINA Administration Finasteride 5 mg 06/03/21 10:00 06/05/21 09:15 Finasteride 5 Mg Tab PO 5 mg QDAY ONDINA Administration Heparin Sodium (Porcine) 5,000 unit 05/26/21 22:00 06/05/21 09:14 Heparin 5,000 Unit/1 Ml Vial SUB-Q 5,000 unit Q12HR ONDINA Administration Hydrophilic Ointment 1 applic 05/26/21 17:02 Lip Therapy Vaseline TP Q2HR PRN Dry Lips Propofol 1,000 mg in 100 mls @ 1.361 mls/hr 05/30/21 06:00 05/31/21 08:50 Diprivan 10 Mg/Ml IV 0 mcg/kg/min TITR ONDINA 0 mls/hr Titration Protocol 5 MCG/KG/MIN Multi-Ingred Cream/Lotion/Oil/Oint 1 applic 05/26/21 17:02 Mineral Oil/Petrolatum, White Ophth Oint 3.5 Gm OU Q4HR PRN Dry Eye(s) Senna/Docusate Sodium 1 tab 05/26/21 22:00 06/05/21 09:15 Sennosides/Docusate Sodium 8.6/50 Mg Tab FEEDTUBE Not Given BID ONDINA Simple Syrup 15 ml 05/28/21 08:24 Simple Syrup 15 Ml FEEDTUBE PRN PRN Hypoglycemia Simple Syrup 30 ml 05/28/21 08:24 Simple Syrup 15 Ml FEEDTUBE PRN PRN Hypoglycemia Sodium Bicarbonate 325 mg 05/28/21 08:24 Sodium Bicarbonate 325 Mg Tab FEEDTUBE PRN PRN For Clogged Feeding Tube Sodium Chloride 10 ml 05/26/21 22:00 06/05/21 09:15 Sodium Chloride 0.9% 10 Ml Flush Syringe IV 10 ml BID ONDINA Administration Sodium Chloride 10 ml 05/26/21 18:34 Sodium Chloride 0.9% 10 Ml Flush Syringe IV PRN PRN LINE FLUSH Tamsulosin HCl 0.8 mg 05/29/21 12:00 06/05/21 09:14 Tamsulosin 0.4 Mg Cap PO 0.8 mg QDAY ONDINA Administration
[2021-06-05 10:10] LABS: Hematocrit 23.5 % (35.5-45.6); Hemoglobin 7.7 gm/dl (11.8-15.2); Mean Corpuscular HGB Conc 33 % (32-34); Mean Corpuscular Volume 83 fl (84-94); Platelet Count 341 K/mm3 (140-440); Red Blood Count 2.83 M/mm3 (3.65-5.03); Red Cell Distribution Width 14.6 % (13.2-15.2)
--- NOTE | 2021-06-05 10:55 | Progress Note ---
Assessment and Plan - Patient Problems (1) Acute respiratory failure Current Visit: Yes Status: Acute Plan to address problem: 1) Family to meet at bedside today at 2 pm to decide course of action re trach/PEG. Subjective Date of service: 06/05/21 Patient Reports: Positive: no new complaints Objective Vital Signs - 12hr 06/04/21 06/04/21 06/05/21 23:00 23:55 00:00 Temperature 99.4 F Pulse Rate 94 H 96 H Pulse Rate [ 101 H From Monitor] Respiratory 22 24 Rate Blood Pressure 127/64 127/64 O2 Sat by Pulse 100 100 Oximetry 06/05/21 06/05/21 06/05/21 00:22 01:00 02:00 Temperature Pulse Rate 97 H 96 H 94 H Pulse Rate [ From Monitor] Respiratory 23 15 Rate Blood Pressure 131/56 127/60 119/62 O2 Sat by Pulse 99 100 100 Oximetry 06/05/21 06/05/21 06/05/21 03:00 03:30 03:32 Temperature 99.4 F Pulse Rate 92 H 91 H Pulse Rate [ From Monitor] Respiratory 18 Rate Blood Pressure 126/57 O2 Sat by Pulse 100 100 Oximetry 06/05/21 06/05/21 06/05/21 04:00 05:00 06:00 Temperature Pulse Rate 82 94 H 93 H Pulse Rate [ 101 H From Monitor] Respiratory 22 26 H 19 Rate Blood Pressure 131/53 135/61 139/62 O2 Sat by Pulse 100 100 99 Oximetry 06/05/21 06/05/21 09:04 09:14 Temperature Pulse Rate 88 87 Pulse Rate [ From Monitor] Respiratory Rate Blood Pressure 131/62 131/42 O2 Sat by Pulse 100 Oximetry - Labs 06/05/21 09:41 06/05/21 04:59 Diabetes panel 06/05/21 Range/Units 04:59 Sodium 150 H (137-145) mmol/L Potassium 3.9 (3.6-5.0) mmol/L Chloride 112.0 H (98-107) mmol/L Carbon Dioxide 27 (22-30) mmol/L BUN 36 H (9-20) mg/dL Creatinine 0.6 L (0.8-1.3) mg/dL Glucose 113 H (75-100) mg/dL Calcium 7.9 L D (8.4-10.2) mg/dL Calcium panel 06/05/21 Range/Units 04:59 Calcium 7.9 L D (8.4-10.2) mg/dL Pituitary panel 06/05/21 Range/Units 04:59 Sodium 150 H (137-145) mmol/L Potassium 3.9 (3.6-5.0) mmol/L Chloride 112.0 H (98-107) mmol/L Carbon Dioxide 27 (22-30) mmol/L BUN 36 H (9-20) mg/dL Creatinine 0.6 L (0.8-1.3) mg/dL Glucose 113 H (75-100) mg/dL Calcium 7.9 L D (8.4-10.2) mg/dL Adrenal panel 06/05/21 Range/Units 04:59 Sodium 150 H (137-145) mmol/L Potassium 3.9 (3.6-5.0) mmol/L Chloride 112.0 H (98-107) mmol/L Carbon Dioxide 27 (22-30) mmol/L BUN 36 H (9-20) mg/dL Creatinine 0.6 L (0.8-1.3) mg/dL Glucose 113 H (75-100) mg/dL Calcium 7.9 L D (8.4-10.2) mg/dL
--- NOTE | 2021-06-05 11:04 | Progress Note ---
Assessment and Plan Acute hypoxemic respiratory failure on MVS Bilateral pneumonia (CAP) Acute toxic metabolic encephalopathy Severe sepsis Acute kidney injury Hypertensive urgency Elevated serum D-dimer Adult failure to thrive Mild metabolic acidosis Hyperchloremia Lactic acidosis Elevated serum inflammatory markers to include ferritin, D-dimers, and LDH PUI COVID-19 infection - surgery evaluation ongoing - not a candidate for trial of extubation re: large infarct and persistent dense encephalopathy - neurology evaluation ongoing; follow EEG - continue care as below otherwise; - continue to wean supplemental oxygen for target O2 sat's > 90% acutely - VAP bundle addressed - continue lung protective strategies - continue Daily SAT and SBT assessment as tolerated - continue bronchodilators with pulmonary hygiene per RT - wean per pulmonary driven protocols otherwise - continue accuchecks with glycemic control per SSI (While critically ill target blood glucose of 140-180 mg/dL; avoid hypoglycemia) - sedation prn for target RASS 0 to -1 - avoid nephrotoxins, renally dose all medications - continue to avoid benzodiazepine's, reduce the possibility of delirium - complete AB's per ID rec's - prn analgesia per CPOT score - Maintenance of sleep-wake cycle, avoid delirium - continue enteral nutritional support at goal rate as tolerated - G.I. & VTE prophylaxis - PT/OT/ROM exercises - continue mobility protocols for pressure ulcer prophylaxis - Monitor hemodynamics closely - continue other care per attending / other consultants - discharge planning ongoing concurrently COVID SPECIFIC INTERVENTIONS - COVID-19 PCR negative .... Re-evaluate in am & prn CONDITION: CRITICAL PROGNOSIS: GUARDED CODE STATUS: FULL CODE The high probability of a clinically significant, sudden or life-threatening deterioration of the [respiratory, cardiovascular, renal & neurologic] system(s) required my full and direct attention, intervention and personal management. The aggregate critical care time was [34] minutes without overlap. Time includes spent on; [x] Data Review and interpretation [x] Patient assessment and monitoring of vital signs [x] Documentation [x] Medication orders and management Subjective Date of service: 06/05/21 Principal diagnosis: Ac. hypoxemic resp failure; CAP; Ac. encephalopathy; SIXTO; Sepsis; PUI COVID Interval history: Patient is seen today for: Ac. hypoxemic resp failure; CAP; Acute encephalopathy; SIXTO; Severe sepsis; PUI COVID-19 infection Seen and examined at bedside; 24hour events reviewed; nursing and respiratory care staff consulted; no adverse overnight events reported to me; resting in bed; remains on MVS; discussed care plan with family at bedside and tentatively for trach & PEG in am; tolerating SBT well; AMS is persistent Objective Vital Signs - 12hr 06/04/21 06/05/21 06/05/21 23:55 00:00 00:22 Temperature 99.4 F Pulse Rate 96 H 97 H Pulse Rate [ 101 H From Monitor] Respiratory 24 Rate Blood Pressure 127/64 131/56 O2 Sat by Pulse 100 99 Oximetry 06/05/21 06/05/21 06/05/21 01:00 02:00 03:00 Temperature Pulse Rate 96 H 94 H 92 H Pulse Rate [ From Monitor] Respiratory 23 15 18 Rate Blood Pressure 127/60 119/62 126/57 O2 Sat by Pulse 100 100 100 Oximetry 06/05/21 06/05/21 06/05/21 03:30 03:32 04:00 Temperature 99.4 F Pulse Rate 91 H 82 Pulse Rate [ 101 H From Monitor] Respiratory 22 Rate Blood Pressure 131/53 O2 Sat by Pulse 100 100 Oximetry 06/05/21 06/05/21 06/05/21 05:00 06:00 09:04 Temperature Pulse Rate 94 H 93 H 88 Pulse Rate [ From Monitor] Respiratory 26 H 19 Rate Blood Pressure 135/61 139/62 131/62 O2 Sat by Pulse 100 99 100 Oximetry 06/05/21 09:14 Temperature Pulse Rate 87 Pulse Rate [ From Monitor] Respiratory Rate Blood Pressure 131/42 O2 Sat by Pulse Oximetry Constitutional: no acute distress, other (orally intuabted to MVS, no dys- synchrony, ETT (7.5) 23 cm at the lip) Eyes: non-icteric ENT: oropharynx moist Neck: supple, no lymphadenopathy, no JVD Effort: mildly labored Ascultation: Bilateral: diminished breath sounds, rhonchi (scant) Percussion: Bilateral: not dull Cardiovascular: regular rate and rhythm, other (S1,S2) Gastrointestinal: normoactive bowel sounds, soft, non-tender, non-distended Integumentary: normal Extremities: no cyanosis, no edema, pulses normal, no ischemia or petechiae Neurologic: pupils equal and round, other (encephalopathic) Psychiatric: other (unable to assess) CBC and BMP: 06/05/21 09:41 06/05/21 04:59 ABG, PT/INR, D-dimer: ABG ABG pH 7.555 (7.320-7.450) H 06/01/21 04:00 POC ABG pCO2 27.6 mmHg (32.0-48.0) L 06/01/21 04:00 POC ABG pO2 65.6 mmHg (83-108) L 06/01/21 04:00 POC ABG HCO3 23.9 06/01/21 04:00 ABG O2 Saturation 94.5 (0-100) 06/01/21 04:00 PT/INR, D-dimer PT 14.0 Sec. (12.2-14.9) 06/02/21 16:57 INR 1.03 (0.87-1.13) 06/02/21 16:57 D-Dimer 8255.81 ng/mlDDU (0-234) H 05/26/21 17:08 Abnormal lab findings: Abnormal Labs 05/26/21 05/26/21 05/26/21 17:08 17:08 17:08 WBC RBC Hgb Hct MCV MCH MCHC 31 L RDW 16.2 H Plt Count 80 L Seg Neuts % (Manual) Lymphocytes % (Manual) Seg Neutrophils # Man Lymphocytes # (Manual) Monocytes # (Manual) APTT 42.4 H D-Dimer 8255.81 H ABG pH POC ABG pCO2 POC ABG pO2 ABG Hemoglobin ABG Oxyhemoglobin ABG Sodium ABG Chloride ABG Glucose Carboxyhemoglobin Sodium 180 H* Potassium Chloride 140 H Carbon Dioxide 21 L BUN 118 H Creatinine 5.4 H Glucose 133 H POC Glucose Lactic Acid Calcium 8.1 L Phosphorus Magnesium Ferritin AST 97 H ALT 71 H Alkaline Phosphatase 138 H Lactate Dehydrogenase 550 H Troponin T 0.038 H C-Reactive Protein 4.20 H Albumin 3.3 L Triglycerides 150 H HDL Cholesterol 24 L Arterial Blood Glucose Arterial Blood Ionized Calcium Urine WBC (Auto) Urine Creatinine Salicylates Acetaminophen 05/26/21 05/26/21 05/26/21 17:08 17:08 17:08 WBC RBC Hgb Hct MCV MCH MCHC RDW Plt Count Seg Neuts % (Manual) Lymphocytes % (Manual) Seg Neutrophils # Man Lymphocytes # (Manual) Monocytes # (Manual) APTT D-Dimer ABG pH POC ABG pCO2 POC ABG pO2 ABG Hemoglobin ABG Oxyhemoglobin ABG Sodium ABG Chloride ABG Glucose Carboxyhemoglobin Sodium Potassium Chloride Carbon Dioxide BUN Creatinine Glucose POC Glucose Lactic Acid 3.90 H* Calcium Phosphorus Magnesium Ferritin 598.3 H AST ALT Alkaline Phosphatase Lactate Dehydrogenase Troponin T C-Reactive Protein Albumin Triglycerides HDL Cholesterol Arterial Blood Glucose Arterial Blood Ionized Calcium Urine WBC (Auto) Urine Creatinine Salicylates Acetaminophen < 5.0 L 05/26/21 05/26/21 05/26/21 17:08 17:27 23:28 WBC RBC Hgb Hct MCV MCH MCHC RDW Plt Count Seg Neuts % (Manual) Lymphocytes % (Manual) Seg Neutrophils # Man Lymphocytes # (Manual) Monocytes # (Manual) APTT D-Dimer ABG pH POC ABG pCO2 POC ABG pO2 453.5 H ABG Hemoglobin 11.5 L ABG Oxyhemoglobin 98.7 H ABG Sodium 198.2 H ABG Chloride ABG Glucose 116 H Carboxyhemoglobin 0.3 L Sodium Potassium Chloride Carbon Dioxide BUN Creatinine Glucose POC Glucose 182 H Lactic Acid Calcium Phosphorus Magnesium Ferritin AST ALT Alkaline Phosphatase Lactate Dehydrogenase Troponin T C-Reactive Protein Albumin Triglycerides HDL Cholesterol Arterial Blood Glucose 116 H Arterial Blood Ionized Calcium Urine WBC (Auto) Urine Creatinine Salicylates < 0.3 L Acetaminophen 05/26/21 05/26/21 05/27/21 Unknown Unknown 01:58 WBC RBC Hgb Hct MCV MCH MCHC RDW Plt Count Seg Neuts % (Manual) Lymphocytes % (Manual) Seg Neutrophils # Man Lymphocytes # (Manual) Monocytes # (Manual) APTT D-Dimer ABG pH POC ABG pCO2 POC ABG pO2 ABG Hemoglobin ABG Oxyhemoglobin ABG Sodium ABG Chloride ABG Glucose Carboxyhemoglobin Sodium Potassium Chloride Carbon Dioxide BUN Creatinine Glucose POC Glucose Lactic Acid 2.90 H* Calcium Phosphorus Magnesium Ferritin AST ALT Alkaline Phosphatase Lactate Dehydrogenase Troponin T C-Reactive Protein Albumin Triglycerides HDL Cholesterol Arterial Blood Glucose Arterial Blood Ionized Calcium Urine WBC (Auto) 16.0 H Urine Creatinine 51.6 H Salicylates Acetaminophen 05/27/21 05/27/21 05/27/21 02:00 02:00 03:19 WBC 27.1 H RBC Hgb 11.1 L Hct MCV MCH 27 L MCHC 31 L RDW 16.1 H Plt Count 62 L Seg Neuts % (Manual) 93.0 H Lymphocytes % (Manual) 3.0 L Seg Neutrophils # Man 25.2 H Lymphocytes # (Manual) 0.8 L Monocytes # (Manual) 1.1 H APTT D-Dimer ABG pH POC ABG pCO2 31.7 L POC ABG pO2 79.5 L ABG Hemoglobin 10.9 L ABG Oxyhemoglobin ABG Sodium 181.4 H ABG Chloride ABG Glucose 276 H Carboxyhemoglobin 0.1 L Sodium 180 H* Potassium Chloride 140 H Carbon Dioxide 19 L BUN 100 H Creatinine 4.3 H Glucose 272 H POC Glucose Lactic Acid Calcium 7.0 L Phosphorus 5.00 H Magnesium Ferritin AST 66 H ALT 64 H Alkaline Phosphatase Lactate Dehydrogenase Troponin T C-Reactive Protein Albumin 2.9 L Triglycerides HDL Cholesterol Arterial Blood Glucose 276 H Arterial Blood Ionized Calcium 4.1 L Urine WBC (Auto) Urine Creatinine Salicylates Acetaminophen 05/27/21 05/27/21 05/27/21 08:22 08:22 12:08 WBC RBC Hgb Hct MCV MCH MCHC RDW Plt Count Seg Neuts % (Manual) Lymphocytes % (Manual) Seg Neutrophils # Man Lymphocytes # (Manual) Monocytes # (Manual) APTT D-Dimer ABG pH POC ABG pCO2 POC ABG pO2 ABG Hemoglobin ABG Oxyhemoglobin ABG Sodium ABG Chloride ABG Glucose Carboxyhemoglobin Sodium 179 H* Potassium Chloride > 139 H Carbon Dioxide 21 L 19 L BUN 103 H 105 H Creatinine 4.2 H 4.2 H Glucose 271 H 217 H POC Glucose Lactic Acid 2.20 H* Calcium 7.3 L 7.0 L Phosphorus Magnesium Ferritin AST ALT Alkaline Phosphatase Lactate Dehydrogenase Troponin T C-Reactive Protein Albumin Triglycerides HDL Cholesterol Arterial Blood Glucose Arterial Blood Ionized Calcium Urine WBC (Auto) Urine Creatinine Salicylates Acetaminophen 05/27/21 05/27/21 05/27/21 12:14 18:03 23:15 WBC RBC Hgb Hct MCV MCH MCHC RDW Plt Count Seg Neuts % (Manual) Lymphocytes % (Manual) Seg Neutrophils # Man Lymphocytes # (Manual) Monocytes # (Manual) APTT D-Dimer ABG pH POC ABG pCO2 POC ABG pO2 ABG Hemoglobin ABG Oxyhemoglobin ABG Sodium ABG Chloride ABG Glucose Carboxyhemoglobin Sodium Potassium Chloride Carbon Dioxide BUN Creatinine Glucose POC Glucose 184 H 183 H 191 H Lactic Acid Calcium Phosphorus Magnesium Ferritin AST ALT Alkaline Phosphatase Lactate Dehydrogenase Troponin T C-Reactive Protein Albumin Triglycerides HDL Cholesterol Arterial Blood Glucose Arterial Blood Ionized Calcium Urine WBC (Auto) Urine Creatinine Salicylates Acetaminophen 05/28/21 05/28/21 05/28/21 03:19 05:15 08:47 WBC RBC Hgb Hct MCV MCH MCHC RDW Plt Count Seg Neuts % (Manual) Lymphocytes % (Manual) Seg Neutrophils # Man Lymphocytes # (Manual) Monocytes # (Manual) APTT D-Dimer ABG pH POC ABG pCO2 29.6 L POC ABG pO2 115.2 H ABG Hemoglobin 10.2 L ABG Oxyhemoglobin ABG Sodium 153.6 H ABG Chloride 129.0 H ABG Glucose 215 H Carboxyhemoglobin 0.3 L Sodium 159 H D Potassium Chloride 123.7 H Carbon Dioxide 20 L BUN 88 H Creatinine 2.9 H Glucose 177 H POC Glucose 184 H Lactic Acid Calcium 6.3 L Phosphorus Magnesium Ferritin AST ALT Alkaline Phosphatase Lactate Dehydrogenase Troponin T C-Reactive Protein Albumin Triglycerides HDL Cholesterol Arterial Blood Glucose 215 H Arterial Blood Ionized Calcium 3.7 L Urine WBC (Auto) Urine Creatinine Salicylates Acetaminophen 05/28/21 05/28/21 05/28/21 11:50 16:27 17:23 WBC RBC Hgb Hct MCV MCH MCHC RDW Plt Count Seg Neuts % (Manual) Lymphocytes % (Manual) Seg Neutrophils # Man Lymphocytes # (Manual) Monocytes # (Manual) APTT D-Dimer ABG pH POC ABG pCO2 POC ABG pO2 ABG Hemoglobin ABG Oxyhemoglobin ABG Sodium ABG Chloride ABG Glucose Carboxyhemoglobin Sodium 154 H Potassium Chloride Carbon Dioxide BUN Creatinine Glucose POC Glucose 130 H 113 H Lactic Acid Calcium Phosphorus Magnesium Ferritin AST ALT Alkaline Phosphatase Lactate Dehydrogenase Troponin T C-Reactive Protein Albumin Triglycerides HDL Cholesterol Arterial Blood Glucose Arterial Blood Ionized Calcium Urine WBC (Auto) Urine Creatinine Salicylates Acetaminophen 05/28/21 05/29/21 05/29/21 23:28 02:59 04:15 WBC RBC Hgb Hct MCV MCH MCHC RDW Plt Count Seg Neuts % (Manual) Lymphocytes % (Manual) Seg Neutrophils # Man Lymphocytes # (Manual) Monocytes # (Manual) APTT D-Dimer ABG pH 7.481 H POC ABG pCO2 24.6 L POC ABG pO2 ABG Hemoglobin 10.6 L ABG Oxyhemoglobin ABG Sodium 149.5 H ABG Chloride 122.0 H ABG Glucose 129 H Carboxyhemoglobin 0.3 L Sodium 159 H Potassium Chloride 124.0 H Carbon Dioxide 21 L BUN 88 H Creatinine 2.4 H Glucose 136 H POC Glucose 139 H Lactic Acid Calcium 6.8 L Phosphorus Magnesium Ferritin AST ALT Alkaline Phosphatase Lactate Dehydrogenase Troponin T C-Reactive Protein Albumin Triglycerides HDL Cholesterol Arterial Blood Glucose 129 H Arterial Blood Ionized Calcium 3.8 L Urine WBC (Auto) Urine Creatinine Salicylates Acetaminophen 05/29/21 05/29/21 05/29/21 05:13 15:35 18:05 WBC RBC Hgb Hct MCV MCH MCHC RDW Plt Count Seg Neuts % (Manual) Lymphocytes % (Manual) Seg Neutrophils # Man Lymphocytes # (Manual) Monocytes # (Manual) APTT D-Dimer ABG pH POC ABG pCO2 POC ABG pO2 ABG Hemoglobin ABG Oxyhemoglobin ABG Sodium ABG Chloride ABG Glucose Carboxyhemoglobin Sodium 160 H Potassium Chloride 124.8 H Carbon Dioxide 20 L BUN 83 H Creatinine 1.9 H Glucose 147 H POC Glucose 138 H 141 H Lactic Acid Calcium 7.1 L Phosphorus Magnesium Ferritin AST ALT Alkaline Phosphatase Lactate Dehydrogenase Troponin T C-Reactive Protein Albumin Triglycerides HDL Cholesterol Arterial Blood Glucose Arterial Blood Ionized Calcium Urine WBC (Auto) Urine Creatinine Salicylates Acetaminophen 05/29/21 05/30/21 05/30/21 23:22 01:20 04:33 WBC RBC Hgb Hct MCV MCH MCHC RDW Plt Count Seg Neuts % (Manual) Lymphocytes % (Manual) Seg Neutrophils # Man Lymphocytes # (Manual) Monocytes # (Manual) APTT D-Dimer ABG pH 7.484 H POC ABG pCO2 24.6 L POC ABG pO2 131.2 H ABG Hemoglobin 11.7 L ABG Oxyhemoglobin 98.1 H ABG Sodium 155.7 H ABG Chloride 126.0 H ABG Glucose 191 H Carboxyhemoglobin 0.1 L Sodium 162 H* Potassium Chloride 129.0 H Carbon Dioxide 19 L BUN 89 H Creatinine 2.1 H Glucose 190 H POC Glucose 160 H Lactic Acid Calcium 7.4 L Phosphorus Magnesium Ferritin AST ALT Alkaline Phosphatase Lactate Dehydrogenase Troponin T C-Reactive Protein Albumin Triglycerides HDL Cholesterol Arterial Blood Glucose 191 H Arterial Blood Ionized Calcium 4.1 L Urine WBC (Auto) Urine Creatinine Salicylates Acetaminophen 05/30/21 05/30/21 05/30/21 05:21 15:25 17:59 WBC RBC Hgb Hct MCV MCH MCHC RDW Plt Count Seg Neuts % (Manual) Lymphocytes % (Manual) Seg Neutrophils # Man Lymphocytes # (Manual) Monocytes # (Manual) APTT D-Dimer ABG pH POC ABG pCO2 POC ABG pO2 ABG Hemoglobin ABG Oxyhemoglobin ABG Sodium ABG Chloride ABG Glucose Carboxyhemoglobin Sodium 161 H* Potassium 3.4 L Chloride 131.7 H Carbon Dioxide 18 L BUN 77 H Creatinine 1.5 H Glucose 200 H POC Glucose 169 H 147 H Lactic Acid Calcium 7.2 L Phosphorus Magnesium Ferritin AST ALT Alkaline Phosphatase Lactate Dehydrogenase Troponin T C-Reactive Protein Albumin Triglycerides HDL Cholesterol Arterial Blood Glucose Arterial Blood Ionized Calcium Urine WBC (Auto) Urine Creatinine Salicylates Acetaminophen 05/30/21 05/31/21 05/31/21 23:34 04:33 05:29 WBC RBC Hgb Hct MCV MCH MCHC RDW Plt Count Seg Neuts % (Manual) Lymphocytes % (Manual) Seg Neutrophils # Man Lymphocytes # (Manual) Monocytes # (Manual) APTT D-Dimer ABG pH POC ABG pCO2 POC ABG pO2 ABG Hemoglobin ABG Oxyhemoglobin ABG Sodium ABG Chloride ABG Glucose Carboxyhemoglobin Sodium 154 H Potassium Chloride 123.6 H Carbon Dioxide 19 L BUN 52 H Creatinine Glucose 139 H POC Glucose 153 H 132 H Lactic Acid Calcium 7.1 L Phosphorus 2.30 L Magnesium Ferritin AST ALT Alkaline Phosphatase Lactate Dehydrogenase Troponin T C-Reactive Protein Albumin Triglycerides HDL Cholesterol Arterial Blood Glucose Arterial Blood Ionized Calcium Urine WBC (Auto) Urine Creatinine Salicylates Acetaminophen 05/31/21 05/31/21 05/31/21 11:47 15:23 17:18 WBC RBC Hgb Hct MCV MCH MCHC RDW Plt Count Seg Neuts % (Manual) Lymphocytes % (Manual) Seg Neutrophils # Man Lymphocytes # (Manual) Monocytes # (Manual) APTT D-Dimer ABG pH POC ABG pCO2 POC ABG pO2 ABG Hemoglobin ABG Oxyhemoglobin ABG Sodium ABG Chloride ABG Glucose Carboxyhemoglobin Sodium 149 H Potassium 3.4 L D Chloride 117.7 H Carbon Dioxide 21 L BUN 40 H Creatinine Glucose 139 H POC Glucose 114 H 108 H Lactic Acid Calcium 7.0 L Phosphorus Magnesium Ferritin AST ALT Alkaline Phosphatase Lactate Dehydrogenase Troponin T C-Reactive Protein Albumin Triglycerides HDL Cholesterol Arterial Blood Glucose Arterial Blood Ionized Calcium Urine WBC (Auto) Urine Creatinine Salicylates Acetaminophen 05/31/21 06/01/21 06/01/21 23:13 04:00 05:50 WBC RBC Hgb Hct MCV MCH MCHC RDW Plt Count Seg Neuts % (Manual) Lymphocytes % (Manual) Seg Neutrophils # Man Lymphocytes # (Manual) Monocytes # (Manual) APTT D-Dimer ABG pH 7.555 H POC ABG pCO2 27.6 L POC ABG pO2 65.6 L ABG Hemoglobin 9.2 L ABG Oxyhemoglobin ABG Sodium ABG Chloride 111.0 H ABG Glucose 143 H Carboxyhemoglobin 0.1 L Sodium Potassium Chloride Carbon Dioxide BUN Creatinine Glucose POC Glucose 126 H 121 H Lactic Acid Calcium Phosphorus Magnesium Ferritin AST ALT Alkaline Phosphatase Lactate Dehydrogenase Troponin T C-Reactive Protein Albumin Triglycerides HDL Cholesterol Arterial Blood Glucose 143 H Arterial Blood Ionized Calcium 3.7 L Urine WBC (Auto) Urine Creatinine Salicylates Acetaminophen 06/01/21 06/01/21 06/01/21 10:10 10:10 11:35 WBC 17.6 H RBC Hgb Hct MCV MCH 27 L MCHC RDW Plt Count 105 L Seg Neuts % (Manual) Lymphocytes % (Manual) Seg Neutrophils # Man Lymphocytes # (Manual) Monocytes # (Manual) APTT D-Dimer ABG pH POC ABG pCO2 POC ABG pO2 ABG Hemoglobin ABG Oxyhemoglobin ABG Sodium ABG Chloride ABG Glucose Carboxyhemoglobin Sodium Potassium 3.5 L Chloride Carbon Dioxide BUN 30 H Creatinine Glucose 137 H POC Glucose 112 H Lactic Acid Calcium 7.1 L Phosphorus 1.80 L D Magnesium 1.40 L Ferritin AST ALT Alkaline Phosphatase Lactate Dehydrogenase Troponin T C-Reactive Protein Albumin Triglycerides HDL Cholesterol Arterial Blood Glucose Arterial Blood Ionized Calcium Urine WBC (Auto) Urine Creatinine Salicylates Acetaminophen 06/01/21 06/02/21 06/02/21 17:41 05:24 09:50 WBC 17.1 H RBC 3.14 L Hgb 8.5 L D Hct 25.6 L D MCV 82 L MCH 27 L MCHC RDW Plt Count 124 L Seg Neuts % (Manual) Lymphocytes % (Manual) Seg Neutrophils # Man Lymphocytes # (Manual) Monocytes # (Manual) APTT D-Dimer ABG pH POC ABG pCO2 POC ABG pO2 ABG Hemoglobin ABG Oxyhemoglobin ABG Sodium ABG Chloride ABG Glucose Carboxyhemoglobin Sodium Potassium Chloride 108.1 H Carbon Dioxide BUN 31 H Creatinine 0.7 L Glucose 128 H POC Glucose 125 H Lactic Acid Calcium 6.1 L Phosphorus Magnesium Ferritin AST ALT Alkaline Phosphatase Lactate Dehydrogenase Troponin T C-Reactive Protein Albumin Triglycerides HDL Cholesterol Arterial Blood Glucose Arterial Blood Ionized Calcium Urine WBC (Auto) Urine Creatinine Salicylates Acetaminophen 06/02/21 06/03/21 06/03/21 18:43 00:25 05:43 WBC RBC Hgb Hct MCV MCH MCHC RDW Plt Count Seg Neuts % (Manual) Lymphocytes % (Manual) Seg Neutrophils # Man Lymphocytes # (Manual) Monocytes # (Manual) APTT D-Dimer ABG pH POC ABG pCO2 POC ABG pO2 ABG Hemoglobin ABG Oxyhemoglobin ABG Sodium ABG Chloride ABG Glucose Carboxyhemoglobin Sodium Potassium Chloride Carbon Dioxide BUN Creatinine Glucose POC Glucose 111 H 124 H 127 H Lactic Acid Calcium Phosphorus Magnesium Ferritin AST ALT Alkaline Phosphatase Lactate Dehydrogenase Troponin T C-Reactive Protein Albumin Triglycerides HDL Cholesterol Arterial Blood Glucose Arterial Blood Ionized Calcium Urine WBC (Auto) Urine Creatinine Salicylates Acetaminophen 06/03/21 06/03/21 06/03/21 06:20 06:20 17:46 WBC 19.4 H RBC 3.24 L Hgb 8.7 L Hct 26.7 L MCV 82 L MCH 27 L MCHC RDW Plt Count Seg Neuts % (Manual) Lymphocytes % (Manual) Seg Neutrophils # Man Lymphocytes # (Manual) Monocytes # (Manual) APTT D-Dimer ABG pH POC ABG pCO2 POC ABG pO2 ABG Hemoglobin ABG Oxyhemoglobin ABG Sodium ABG Chloride ABG Glucose Carboxyhemoglobin Sodium Potassium Chloride 108.1 H Carbon Dioxide BUN 31 H Creatinine 0.6 L Glucose 126 H POC Glucose 125 H Lactic Acid Calcium 6.8 L Phosphorus Magnesium Ferritin AST ALT Alkaline Phosphatase Lactate Dehydrogenase Troponin T C-Reactive Protein Albumin Triglycerides HDL Cholesterol Arterial Blood Glucose Arterial Blood Ionized Calcium Urine WBC (Auto) Urine Creatinine Salicylates Acetaminophen 06/03/21 06/04/21 06/04/21 23:27 17:29 23:11 WBC RBC Hgb Hct MCV MCH MCHC RDW Plt Count Seg Neuts % (Manual) Lymphocytes % (Manual) Seg Neutrophils # Man Lymphocytes # (Manual) Monocytes # (Manual) APTT D-Dimer ABG pH POC ABG pCO2 POC ABG pO2 ABG Hemoglobin ABG Oxyhemoglobin ABG Sodium ABG Chloride ABG Glucose Carboxyhemoglobin Sodium Potassium Chloride Carbon Dioxide BUN Creatinine Glucose POC Glucose 125 H 116 H 126 H Lactic Acid Calcium Phosphorus Magnesium Ferritin AST ALT Alkaline Phosphatase Lactate Dehydrogenase Troponin T C-Reactive Protein Albumin Triglycerides HDL Cholesterol Arterial Blood Glucose Arterial Blood Ionized Calcium Urine WBC (Auto) Urine Creatinine Salicylates Acetaminophen 06/05/21 06/05/21 06/05/21 02:03 04:59 05:07 WBC RBC Hgb Hct MCV MCH MCHC RDW Plt Count Seg Neuts % (Manual) Lymphocytes % (Manual) Seg Neutrophils # Man Lymphocytes # (Manual) Monocytes # (Manual) APTT D-Dimer ABG pH POC ABG pCO2 POC ABG pO2 ABG Hemoglobin ABG Oxyhemoglobin ABG Sodium ABG Chloride ABG Glucose Carboxyhemoglobin Sodium 150 H Potassium Chloride 112.0 H Carbon Dioxide BUN 36 H Creatinine 0.6 L Glucose 113 H POC Glucose 119 H 110 H Lactic Acid Calcium 7.9 L D Phosphorus Magnesium Ferritin AST ALT Alkaline Phosphatase Lactate Dehydrogenase Troponin T C-Reactive Protein Albumin Triglycerides HDL Cholesterol Arterial Blood Glucose Arterial Blood Ionized Calcium Urine WBC (Auto) Urine Creatinine Salicylates Acetaminophen 06/05/21 09:41 WBC 21.2 H RBC 2.83 L Hgb 7.7 L Hct 23.5 L MCV 83 L MCH 27 L MCHC RDW Plt Count Seg Neuts % (Manual) Lymphocytes % (Manual) Seg Neutrophils # Man Lymphocytes # (Manual) Monocytes # (Manual) APTT D-Dimer ABG pH POC ABG pCO2 POC ABG pO2 ABG Hemoglobin ABG Oxyhemoglobin ABG Sodium ABG Chloride ABG Glucose Carboxyhemoglobin Sodium Potassium Chloride Carbon Dioxide BUN Creatinine Glucose POC Glucose Lactic Acid Calcium Phosphorus Magnesium Ferritin AST ALT Alkaline Phosphatase Lactate Dehydrogenase Troponin T C-Reactive Protein Albumin Triglycerides HDL Cholesterol Arterial Blood Glucose Arterial Blood Ionized Calcium Urine WBC (Auto) Urine Creatinine Salicylates Acetaminophen Chest x-ray: pending Allied health notes reviewed: nursing
--- NOTE | 2021-06-05 12:42 | Progress Note ---
Assessment and Plan Assessment and Plan # Encephalopathy -81 ys old male admitted on 05/26/21 with change mentation and and pneumonia pt. 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 Wean vent as tolerated, sedation holiday, daily ABG, spontaneous breathing trial daily, daily chest x-ray. # Acute kidney injury (SIXTO) with acute tubular necrosis (ATN) -IV fluid resuscitation therapy, BMP, repeat BMP in a.m., supportive care. Nephrology team consulted -Creatinine 5.4---0.7. # Hypernatremia -IV fluid resuscitation therapy, repeat BMP, repeat BMP in a.m. nephrology team consulted -162---142 # Pneumonia -Pneumonia protocol: Chest x-ray, CBC, CMP, IV antibiotic therapy, supplemental oxygen, pulse oximetry, # UTI (urinary tract infection) -CBC, CMP, IV antibiotic therapy, blood culture. # DVT prophylaxis -SCD to bilateral lower extremities while in bed, prophylactic anticoagulation # Advance care planning -Disease education conducted, care plan discussed, diagnosis discussed, prognosis discussed, patient is full code, patient family knowledges understanding and agree with care plan as well as quarded prognosis PLAN 1-OFF sedation 2- MRI brain is noted 3-EEG is noted 4- Treat underlying infection 5- Correct electrolytes abn. 6- CTA brain and neck 7- echo 8- ASA and lipitor will follow as needed++ Over all prognosisi is quarded The high probability of a clinically significant, sudden or life threatening deterioration of the [cardiac, neuro, renal, ID, respiratory] system(s) required my full and direct attention, intervention and personal management. The aggregat e critical care time was [30] minutes. [x] Data Review and interpretation [x] Patient assessment and monitoring of vital signs [x] Documentation [x] Medication orders and management Subjective Date of service: 06/05/21 Principal diagnosis: Ac. hypoxemic resp failure; CAP; Ac. encephalopathy; SIXTO; Sepsis; PUI COVID Interval history: status is unchanged he is off sedation family information is noted-he is with underlying dementia ? MRI brain is remarkable for right occipital infarct subacute , and EEG is remarkable for diffuse slowing CTA brain and neck are pending started on ASA 325 mg NJ tube and Lipitor ECHO is pending today NA#[id number] Objective - Vital Sign Vital Signs - 12hr 06/05/21 06/05/21 06/05/21 01:00 02:00 03:00 Temperature Pulse Rate 96 H 94 H 92 H Pulse Rate [ From Monitor] Respiratory 23 15 18 Rate Blood Pressure 127/60 119/62 126/57 O2 Sat by Pulse 100 100 100 Oximetry 06/05/21 06/05/21 06/05/21 03:30 03:32 04:00 Temperature 99.4 F Pulse Rate 91 H 82 Pulse Rate [ 101 H From Monitor] Respiratory 22 Rate Blood Pressure 131/53 O2 Sat by Pulse 100 100 Oximetry 06/05/21 06/05/21 06/05/21 05:00 06:00 09:04 Temperature Pulse Rate 94 H 93 H 88 Pulse Rate [ From Monitor] Respiratory 26 H 19 Rate Blood Pressure 135/61 139/62 131/62 O2 Sat by Pulse 100 99 100 Oximetry 06/05/21 06/05/21 09:14 11:40 Temperature Pulse Rate 87 84 Pulse Rate [ From Monitor] Respiratory Rate Blood Pressure 131/42 129/58 O2 Sat by Pulse 98 Oximetry - General Apperance Constitutional: comfortable - EENT EENT: PERRL, mucous membranes moist - Respiratory Respiratory: lungs clear, rhonchi - Cardiovascular Cardiovascular: regular rate, normal S1, normal S2 Extremities: no peripheral edema bilat, no clubbing, cyanosis - Gastrointestinal Gastrointestinal: normoactive bowel sounds - Integumentary Integumentary: normal - Neurologic Cranial nerve examination: PERRL, EOMI, intact (slight movment feet on his own and to stimuli , not following command) - Laboratory Findings CBC and BMP: 06/05/21 09:41 06/05/21 04:59 Abnormal Lab Findings: Abnormal Labs 05/26/21 05/26/21 05/26/21 17:08 17:08 17:08 WBC RBC Hgb Hct MCV MCH MCHC 31 L RDW 16.2 H Plt Count 80 L Seg Neuts % (Manual) Lymphocytes % (Manual) Seg Neutrophils # Man Lymphocytes # (Manual) Monocytes # (Manual) APTT 42.4 H D-Dimer 8255.81 H ABG pH POC ABG pCO2 POC ABG pO2 ABG Hemoglobin ABG Oxyhemoglobin ABG Sodium ABG Chloride ABG Glucose Carboxyhemoglobin Sodium 180 H* Potassium Chloride 140 H Carbon Dioxide 21 L BUN 118 H Creatinine 5.4 H Glucose 133 H POC Glucose Lactic Acid Calcium 8.1 L Phosphorus Magnesium Ferritin AST 97 H ALT 71 H Alkaline Phosphatase 138 H Lactate Dehydrogenase 550 H Troponin T 0.038 H C-Reactive Protein 4.20 H Albumin 3.3 L Triglycerides 150 H HDL Cholesterol 24 L Arterial Blood Glucose Arterial Blood Ionized Calcium Urine WBC (Auto) Urine Creatinine Salicylates Acetaminophen 05/26/21 05/26/21 05/26/21 17:08 17:08 17:08 WBC RBC Hgb Hct MCV MCH MCHC RDW Plt Count Seg Neuts % (Manual) Lymphocytes % (Manual) Seg Neutrophils # Man Lymphocytes # (Manual) Monocytes # (Manual) APTT D-Dimer ABG pH POC ABG pCO2 POC ABG pO2 ABG Hemoglobin ABG Oxyhemoglobin ABG Sodium ABG Chloride ABG Glucose Carboxyhemoglobin Sodium Potassium Chloride Carbon Dioxide BUN Creatinine Glucose POC Glucose Lactic Acid 3.90 H* Calcium Phosphorus Magnesium Ferritin 598.3 H AST ALT Alkaline Phosphatase Lactate Dehydrogenase Troponin T C-Reactive Protein Albumin Triglycerides HDL Cholesterol Arterial Blood Glucose Arterial Blood Ionized Calcium Urine WBC (Auto) Urine Creatinine Salicylates Acetaminophen < 5.0 L 05/26/21 05/26/21 05/26/21 17:08 17:27 23:28 WBC RBC Hgb Hct MCV MCH MCHC RDW Plt Count Seg Neuts % (Manual) Lymphocytes % (Manual) Seg Neutrophils # Man Lymphocytes # (Manual) Monocytes # (Manual) APTT D-Dimer ABG pH POC ABG pCO2 POC ABG pO2 453.5 H ABG Hemoglobin 11.5 L ABG Oxyhemoglobin 98.7 H ABG Sodium 198.2 H ABG Chloride ABG Glucose 116 H Carboxyhemoglobin 0.3 L Sodium Potassium Chloride Carbon Dioxide BUN Creatinine Glucose POC Glucose 182 H Lactic Acid Calcium Phosphorus Magnesium Ferritin AST ALT Alkaline Phosphatase Lactate Dehydrogenase Troponin T C-Reactive Protein Albumin Triglycerides HDL Cholesterol Arterial Blood Glucose 116 H Arterial Blood Ionized Calcium Urine WBC (Auto) Urine Creatinine Salicylates < 0.3 L Acetaminophen 05/26/21 05/26/21 05/27/21 Unknown Unknown 01:58 WBC RBC Hgb Hct MCV MCH MCHC RDW Plt Count Seg Neuts % (Manual) Lymphocytes % (Manual) Seg Neutrophils # Man Lymphocytes # (Manual) Monocytes # (Manual) APTT D-Dimer ABG pH POC ABG pCO2 POC ABG pO2 ABG Hemoglobin ABG Oxyhemoglobin ABG Sodium ABG Chloride ABG Glucose Carboxyhemoglobin Sodium Potassium Chloride Carbon Dioxide BUN Creatinine Glucose POC Glucose Lactic Acid 2.90 H* Calcium Phosphorus Magnesium Ferritin AST ALT Alkaline Phosphatase Lactate Dehydrogenase Troponin T C-Reactive Protein Albumin Triglycerides HDL Cholesterol Arterial Blood Glucose Arterial Blood Ionized Calcium Urine WBC (Auto) 16.0 H Urine Creatinine 51.6 H Salicylates Acetaminophen 05/27/21 05/27/21 05/27/21 02:00 02:00 03:19 WBC 27.1 H RBC Hgb 11.1 L Hct MCV MCH 27 L MCHC 31 L RDW 16.1 H Plt Count 62 L Seg Neuts % (Manual) 93.0 H Lymphocytes % (Manual) 3.0 L Seg Neutrophils # Man 25.2 H Lymphocytes # (Manual) 0.8 L Monocytes # (Manual) 1.1 H APTT D-Dimer ABG pH POC ABG pCO2 31.7 L POC ABG pO2 79.5 L ABG Hemoglobin 10.9 L ABG Oxyhemoglobin ABG Sodium 181.4 H ABG Chloride ABG Glucose 276 H Carboxyhemoglobin 0.1 L Sodium 180 H* Potassium Chloride 140 H Carbon Dioxide 19 L BUN 100 H Creatinine 4.3 H Glucose 272 H POC Glucose Lactic Acid Calcium 7.0 L Phosphorus 5.00 H Magnesium Ferritin AST 66 H ALT 64 H Alkaline Phosphatase Lactate Dehydrogenase Troponin T C-Reactive Protein Albumin 2.9 L Triglycerides HDL Cholesterol Arterial Blood Glucose 276 H Arterial Blood Ionized Calcium 4.1 L Urine WBC (Auto) Urine Creatinine Salicylates Acetaminophen 05/27/21 05/27/21 05/27/21 08:22 08:22 12:08 WBC RBC Hgb Hct MCV MCH MCHC RDW Plt Count Seg Neuts % (Manual) Lymphocytes % (Manual) Seg Neutrophils # Man Lymphocytes # (Manual) Monocytes # (Manual) APTT D-Dimer ABG pH POC ABG pCO2 POC ABG pO2 ABG Hemoglobin ABG Oxyhemoglobin ABG Sodium ABG Chloride ABG Glucose Carboxyhemoglobin Sodium 179 H* Potassium Chloride > 139 H Carbon Dioxide 21 L 19 L BUN 103 H 105 H Creatinine 4.2 H 4.2 H Glucose 271 H 217 H POC Glucose Lactic Acid 2.20 H* Calcium 7.3 L 7.0 L Phosphorus Magnesium Ferritin AST ALT Alkaline Phosphatase Lactate Dehydrogenase Troponin T C-Reactive Protein Albumin Triglycerides HDL Cholesterol Arterial Blood Glucose Arterial Blood Ionized Calcium Urine WBC (Auto) Urine Creatinine Salicylates Acetaminophen 05/27/21 05/27/21 05/27/21 12:14 18:03 23:15 WBC RBC Hgb Hct MCV MCH MCHC RDW Plt Count Seg Neuts % (Manual) Lymphocytes % (Manual) Seg Neutrophils # Man Lymphocytes # (Manual) Monocytes # (Manual) APTT D-Dimer ABG pH POC ABG pCO2 POC ABG pO2 ABG Hemoglobin ABG Oxyhemoglobin ABG Sodium ABG Chloride ABG Glucose Carboxyhemoglobin Sodium Potassium Chloride Carbon Dioxide BUN Creatinine Glucose POC Glucose 184 H 183 H 191 H Lactic Acid Calcium Phosphorus Magnesium Ferritin AST ALT Alkaline Phosphatase Lactate Dehydrogenase Troponin T C-Reactive Protein Albumin Triglycerides HDL Cholesterol Arterial Blood Glucose Arterial Blood Ionized Calcium Urine WBC (Auto) Urine Creatinine Salicylates Acetaminophen 05/28/21 05/28/21 05/28/21 03:19 05:15 08:47 WBC RBC Hgb Hct MCV MCH MCHC RDW Plt Count Seg Neuts % (Manual) Lymphocytes % (Manual) Seg Neutrophils # Man Lymphocytes # (Manual) Monocytes # (Manual) APTT D-Dimer ABG pH POC ABG pCO2 29.6 L POC ABG pO2 115.2 H ABG Hemoglobin 10.2 L ABG Oxyhemoglobin ABG Sodium 153.6 H ABG Chloride 129.0 H ABG Glucose 215 H Carboxyhemoglobin 0.3 L Sodium 159 H D Potassium Chloride 123.7 H Carbon Dioxide 20 L BUN 88 H Creatinine 2.9 H Glucose 177 H POC Glucose 184 H Lactic Acid Calcium 6.3 L Phosphorus Magnesium Ferritin AST ALT Alkaline Phosphatase Lactate Dehydrogenase Troponin T C-Reactive Protein Albumin Triglycerides HDL Cholesterol Arterial Blood Glucose 215 H Arterial Blood Ionized Calcium 3.7 L Urine WBC (Auto) Urine Creatinine Salicylates Acetaminophen 05/28/21 05/28/21 05/28/21 11:50 16:27 17:23 WBC RBC Hgb Hct MCV MCH MCHC RDW Plt Count Seg Neuts % (Manual) Lymphocytes % (Manual) Seg Neutrophils # Man Lymphocytes # (Manual) Monocytes # (Manual) APTT D-Dimer ABG pH POC ABG pCO2 POC ABG pO2 ABG Hemoglobin ABG Oxyhemoglobin ABG Sodium ABG Chloride ABG Glucose Carboxyhemoglobin Sodium 154 H Potassium Chloride Carbon Dioxide BUN Creatinine Glucose POC Glucose 130 H 113 H Lactic Acid Calcium Phosphorus Magnesium Ferritin AST ALT Alkaline Phosphatase Lactate Dehydrogenase Troponin T C-Reactive Protein Albumin Triglycerides HDL Cholesterol Arterial Blood Glucose Arterial Blood Ionized Calcium Urine WBC (Auto) Urine Creatinine Salicylates Acetaminophen 05/28/21 05/29/21 05/29/21 23:28 02:59 04:15 WBC RBC Hgb Hct MCV MCH MCHC RDW Plt Count Seg Neuts % (Manual) Lymphocytes % (Manual) Seg Neutrophils # Man Lymphocytes # (Manual) Monocytes # (Manual) APTT D-Dimer ABG pH 7.481 H POC ABG pCO2 24.6 L POC ABG pO2 ABG Hemoglobin 10.6 L ABG Oxyhemoglobin ABG Sodium 149.5 H ABG Chloride 122.0 H ABG Glucose 129 H Carboxyhemoglobin 0.3 L Sodium 159 H Potassium Chloride 124.0 H Carbon Dioxide 21 L BUN 88 H Creatinine 2.4 H Glucose 136 H POC Glucose 139 H Lactic Acid Calcium 6.8 L Phosphorus Magnesium Ferritin AST ALT Alkaline Phosphatase Lactate Dehydrogenase Troponin T C-Reactive Protein Albumin Triglycerides HDL Cholesterol Arterial Blood Glucose 129 H Arterial Blood Ionized Calcium 3.8 L Urine WBC (Auto) Urine Creatinine Salicylates Acetaminophen 05/29/21 05/29/21 05/29/21 05:13 15:35 18:05 WBC RBC Hgb Hct MCV MCH MCHC RDW Plt Count Seg Neuts % (Manual) Lymphocytes % (Manual) Seg Neutrophils # Man Lymphocytes # (Manual) Monocytes # (Manual) APTT D-Dimer ABG pH POC ABG pCO2 POC ABG pO2 ABG Hemoglobin ABG Oxyhemoglobin ABG Sodium ABG Chloride ABG Glucose Carboxyhemoglobin Sodium 160 H Potassium Chloride 124.8 H Carbon Dioxide 20 L BUN 83 H Creatinine 1.9 H Glucose 147 H POC Glucose 138 H 141 H Lactic Acid Calcium 7.1 L Phosphorus Magnesium Ferritin AST ALT Alkaline Phosphatase Lactate Dehydrogenase Troponin T C-Reactive Protein Albumin Triglycerides HDL Cholesterol Arterial Blood Glucose Arterial Blood Ionized Calcium Urine WBC (Auto) Urine Creatinine Salicylates Acetaminophen 05/29/21 05/30/21 05/30/21 23:22 01:20 04:33 WBC RBC Hgb Hct MCV MCH MCHC RDW Plt Count Seg Neuts % (Manual) Lymphocytes % (Manual) Seg Neutrophils # Man Lymphocytes # (Manual) Monocytes # (Manual) APTT D-Dimer ABG pH 7.484 H POC ABG pCO2 24.6 L POC ABG pO2 131.2 H ABG Hemoglobin 11.7 L ABG Oxyhemoglobin 98.1 H ABG Sodium 155.7 H ABG Chloride 126.0 H ABG Glucose 191 H Carboxyhemoglobin 0.1 L Sodium 162 H* Potassium Chloride 129.0 H Carbon Dioxide 19 L BUN 89 H Creatinine 2.1 H Glucose 190 H POC Glucose 160 H Lactic Acid Calcium 7.4 L Phosphorus Magnesium Ferritin AST ALT Alkaline Phosphatase Lactate Dehydrogenase Troponin T C-Reactive Protein Albumin Triglycerides HDL Cholesterol Arterial Blood Glucose 191 H Arterial Blood Ionized Calcium 4.1 L Urine WBC (Auto) Urine Creatinine Salicylates Acetaminophen 05/30/21 05/30/21 05/30/21 05:21 15:25 17:59 WBC RBC Hgb Hct MCV MCH MCHC RDW Plt Count Seg Neuts % (Manual) Lymphocytes % (Manual) Seg Neutrophils # Man Lymphocytes # (Manual) Monocytes # (Manual) APTT D-Dimer ABG pH POC ABG pCO2 POC ABG pO2 ABG Hemoglobin ABG Oxyhemoglobin ABG Sodium ABG Chloride ABG Glucose Carboxyhemoglobin Sodium 161 H* Potassium 3.4 L Chloride 131.7 H Carbon Dioxide 18 L BUN 77 H Creatinine 1.5 H Glucose 200 H POC Glucose 169 H 147 H Lactic Acid Calcium 7.2 L Phosphorus Magnesium Ferritin AST ALT Alkaline Phosphatase Lactate Dehydrogenase Troponin T C-Reactive Protein Albumin Triglycerides HDL Cholesterol Arterial Blood Glucose Arterial Blood Ionized Calcium Urine WBC (Auto) Urine Creatinine Salicylates Acetaminophen 05/30/21 05/31/21 05/31/21 23:34 04:33 05:29 WBC RBC Hgb Hct MCV MCH MCHC RDW Plt Count Seg Neuts % (Manual) Lymphocytes % (Manual) Seg Neutrophils # Man Lymphocytes # (Manual) Monocytes # (Manual) APTT D-Dimer ABG pH POC ABG pCO2 POC ABG pO2 ABG Hemoglobin ABG Oxyhemoglobin ABG Sodium ABG Chloride ABG Glucose Carboxyhemoglobin Sodium 154 H Potassium Chloride 123.6 H Carbon Dioxide 19 L BUN 52 H Creatinine Glucose 139 H POC Glucose 153 H 132 H Lactic Acid Calcium 7.1 L Phosphorus 2.30 L Magnesium Ferritin AST ALT Alkaline Phosphatase Lactate Dehydrogenase Troponin T C-Reactive Protein Albumin Triglycerides HDL Cholesterol Arterial Blood Glucose Arterial Blood Ionized Calcium Urine WBC (Auto) Urine Creatinine Salicylates Acetaminophen 05/31/21 05/31/21 05/31/21 11:47 15:23 17:18 WBC RBC Hgb Hct MCV MCH MCHC RDW Plt Count Seg Neuts % (Manual) Lymphocytes % (Manual) Seg Neutrophils # Man Lymphocytes # (Manual) Monocytes # (Manual) APTT D-Dimer ABG pH POC ABG pCO2 POC ABG pO2 ABG Hemoglobin ABG Oxyhemoglobin ABG Sodium ABG Chloride ABG Glucose Carboxyhemoglobin Sodium 149 H Potassium 3.4 L D Chloride 117.7 H Carbon Dioxide 21 L BUN 40 H Creatinine Glucose 139 H POC Glucose 114 H 108 H Lactic Acid Calcium 7.0 L Phosphorus Magnesium Ferritin AST ALT Alkaline Phosphatase Lactate Dehydrogenase Troponin T C-Reactive Protein Albumin Triglycerides HDL Cholesterol Arterial Blood Glucose Arterial Blood Ionized Calcium Urine WBC (Auto) Urine Creatinine Salicylates Acetaminophen 05/31/21 06/01/21 06/01/21 23:13 04:00 05:50 WBC RBC Hgb Hct MCV MCH MCHC RDW Plt Count Seg Neuts % (Manual) Lymphocytes % (Manual) Seg Neutrophils # Man Lymphocytes # (Manual) Monocytes # (Manual) APTT D-Dimer ABG pH 7.555 H POC ABG pCO2 27.6 L POC ABG pO2 65.6 L ABG Hemoglobin 9.2 L ABG Oxyhemoglobin ABG Sodium ABG Chloride 111.0 H ABG Glucose 143 H Carboxyhemoglobin 0.1 L Sodium Potassium Chloride Carbon Dioxide BUN Creatinine Glucose POC Glucose 126 H 121 H Lactic Acid Calcium Phosphorus Magnesium Ferritin AST ALT Alkaline Phosphatase Lactate Dehydrogenase Troponin T C-Reactive Protein Albumin Triglycerides HDL Cholesterol Arterial Blood Glucose 143 H Arterial Blood Ionized Calcium 3.7 L Urine WBC (Auto) Urine Creatinine Salicylates Acetaminophen 06/01/21 06/01/21 06/01/21 10:10 10:10 11:35 WBC 17.6 H RBC Hgb Hct MCV MCH 27 L MCHC RDW Plt Count 105 L Seg Neuts % (Manual) Lymphocytes % (Manual) Seg Neutrophils # Man Lymphocytes # (Manual) Monocytes # (Manual) APTT D-Dimer ABG pH POC ABG pCO2 POC ABG pO2 ABG Hemoglobin ABG Oxyhemoglobin ABG Sodium ABG Chloride ABG Glucose Carboxyhemoglobin Sodium Potassium 3.5 L Chloride Carbon Dioxide BUN 30 H Creatinine Glucose 137 H POC Glucose 112 H Lactic Acid Calcium 7.1 L Phosphorus 1.80 L D Magnesium 1.40 L Ferritin AST ALT Alkaline Phosphatase Lactate Dehydrogenase Troponin T C-Reactive Protein Albumin Triglycerides HDL Cholesterol Arterial Blood Glucose Arterial Blood Ionized Calcium Urine WBC (Auto) Urine Creatinine Salicylates Acetaminophen 06/01/21 06/02/21 06/02/21 17:41 05:24 09:50 WBC 17.1 H RBC 3.14 L Hgb 8.5 L D Hct 25.6 L D MCV 82 L MCH 27 L MCHC RDW Plt Count 124 L Seg Neuts % (Manual) Lymphocytes % (Manual) Seg Neutrophils # Man Lymphocytes # (Manual) Monocytes # (Manual) APTT D-Dimer ABG pH POC ABG pCO2 POC ABG pO2 ABG Hemoglobin ABG Oxyhemoglobin ABG Sodium ABG Chloride ABG Glucose Carboxyhemoglobin Sodium Potassium Chloride 108.1 H Carbon Dioxide BUN 31 H Creatinine 0.7 L Glucose 128 H POC Glucose 125 H Lactic Acid Calcium 6.1 L Phosphorus Magnesium Ferritin AST ALT Alkaline Phosphatase Lactate Dehydrogenase Troponin T C-Reactive Protein Albumin Triglycerides HDL Cholesterol Arterial Blood Glucose Arterial Blood Ionized Calcium Urine WBC (Auto) Urine Creatinine Salicylates Acetaminophen 06/02/21 06/03/21 06/03/21 18:43 00:25 05:43 WBC RBC Hgb Hct MCV MCH MCHC RDW Plt Count Seg Neuts % (Manual) Lymphocytes % (Manual) Seg Neutrophils # Man Lymphocytes # (Manual) Monocytes # (Manual) APTT D-Dimer ABG pH POC ABG pCO2 POC ABG pO2 ABG Hemoglobin ABG Oxyhemoglobin ABG Sodium ABG Chloride ABG Glucose Carboxyhemoglobin Sodium Potassium Chloride Carbon Dioxide BUN Creatinine Glucose POC Glucose 111 H 124 H 127 H Lactic Acid Calcium Phosphorus Magnesium Ferritin AST ALT Alkaline Phosphatase Lactate Dehydrogenase Troponin T C-Reactive Protein Albumin Triglycerides HDL Cholesterol Arterial Blood Glucose Arterial Blood Ionized Calcium Urine WBC (Auto) Urine Creatinine Salicylates Acetaminophen 06/03/21 06/03/21 06/03/21 06:20 06:20 17:46 WBC 19.4 H RBC 3.24 L Hgb 8.7 L Hct 26.7 L MCV 82 L MCH 27 L MCHC RDW Plt Count Seg Neuts % (Manual) Lymphocytes % (Manual) Seg Neutrophils # Man Lymphocytes # (Manual) Monocytes # (Manual) APTT D-Dimer ABG pH POC ABG pCO2 POC ABG pO2 ABG Hemoglobin ABG Oxyhemoglobin ABG Sodium ABG Chloride ABG Glucose Carboxyhemoglobin Sodium Potassium Chloride 108.1 H Carbon Dioxide BUN 31 H Creatinine 0.6 L Glucose 126 H POC Glucose 125 H Lactic Acid Calcium 6.8 L Phosphorus Magnesium Ferritin AST ALT Alkaline Phosphatase Lactate Dehydrogenase Troponin T C-Reactive Protein Albumin Triglycerides HDL Cholesterol Arterial Blood Glucose Arterial Blood Ionized Calcium Urine WBC (Auto) Urine Creatinine Salicylates Acetaminophen 06/03/21 06/04/21 06/04/21 23:27 17:29 23:11 WBC RBC Hgb Hct MCV MCH MCHC RDW Plt Count Seg Neuts % (Manual) Lymphocytes % (Manual) Seg Neutrophils # Man Lymphocytes # (Manual) Monocytes # (Manual) APTT D-Dimer ABG pH POC ABG pCO2 POC ABG pO2 ABG Hemoglobin ABG Oxyhemoglobin ABG Sodium ABG Chloride ABG Glucose Carboxyhemoglobin Sodium Potassium Chloride Carbon Dioxide BUN Creatinine Glucose POC Glucose 125 H 116 H 126 H Lactic Acid Calcium Phosphorus Magnesium Ferritin AST ALT Alkaline Phosphatase Lactate Dehydrogenase Troponin T C-Reactive Protein Albumin Triglycerides HDL Cholesterol Arterial Blood Glucose Arterial Blood Ionized Calcium Urine WBC (Auto) Urine Creatinine Salicylates Acetaminophen 06/05/21 06/05/21 06/05/21 02:03 04:59 05:07 WBC RBC Hgb Hct MCV MCH MCHC RDW Plt Count Seg Neuts % (Manual) Lymphocytes % (Manual) Seg Neutrophils # Man Lymphocytes # (Manual) Monocytes # (Manual) APTT D-Dimer ABG pH POC ABG pCO2 POC ABG pO2 ABG Hemoglobin ABG Oxyhemoglobin ABG Sodium ABG Chloride ABG Glucose Carboxyhemoglobin Sodium 150 H Potassium Chloride 112.0 H Carbon Dioxide BUN 36 H Creatinine 0.6 L Glucose 113 H POC Glucose 119 H 110 H Lactic Acid Calcium 7.9 L D Phosphorus Magnesium Ferritin AST ALT Alkaline Phosphatase Lactate Dehydrogenase Troponin T C-Reactive Protein Albumin Triglycerides HDL Cholesterol Arterial Blood Glucose Arterial Blood Ionized Calcium Urine WBC (Auto) Urine Creatinine Salicylates Acetaminophen 06/05/21 09:41 WBC 21.2 H RBC 2.83 L Hgb 7.7 L Hct 23.5 L MCV 83 L MCH 27 L MCHC RDW Plt Count Seg Neuts % (Manual) Lymphocytes % (Manual) Seg Neutrophils # Man Lymphocytes # (Manual) Monocytes # (Manual) APTT D-Dimer ABG pH POC ABG pCO2 POC ABG pO2 ABG Hemoglobin ABG Oxyhemoglobin ABG Sodium ABG Chloride ABG Glucose Carboxyhemoglobin Sodium Potassium Chloride Carbon Dioxide BUN Creatinine Glucose POC Glucose Lactic Acid Calcium Phosphorus Magnesium Ferritin AST ALT Alkaline Phosphatase Lactate Dehydrogenase Troponin T C-Reactive Protein Albumin Triglycerides HDL Cholesterol Arterial Blood Glucose Arterial Blood Ionized Calcium Urine WBC (Auto) Urine Creatinine Salicylates Acetaminophen
--- NOTE | 2021-06-05 14:29 | Progress Note ---
<MARIOBHUMIKA H. - Last Filed: 06/05/21 14:24> Assessment and Plan Assessment and plan: This 81-year-old male with hypertension and dementia admitted with acute hypoxic respiratory failure suspected, COVID-19 PUI, pneumonia, hypernatremia, volume depletion, urinary tract infection, toxic metabolic encephalopathy, SIXTO, sepsis Neuro: Acute metabolic encephalopathy -Aspiration/seizure precautions -05/26 CT head shows no focal mass, hemorrhage, hydrocephalus or acute or large territorial infarct, mild to moderate mucosal thickening in the ethmoid with prior mastoidectomy noted on the right, vascular disease seen in the anterior and posterior circulation, moderate diffuse cerebral atrophy with anterior temporal lobe atrophy being the greatest, moderate to marked degree of hippocampal atrophy suggested bilaterally, suggestion of encephalomalacia in the inferior temporal lobe on the right as well as anterior temporal lobe with question prior branch infarct or trauma -Neurology consulted -06/03 EEG shows diffuse background slowing in 3-4 Hz noted throughout the methacholine, no focal slowing, no epileptiform discharge appreciated, findings suggestive of encephalopathic center toxic metabolic, drug effect, and/or anoxic, clinical correlation is in order Right posterior cerebral artery infarction -Neurology consulted, patient recommendations -06/03 MRI brain shows large recent right posterior cerebral artery infarction with evidence of cortical laminar necrosis, probably mobile atrophy with apparent focal atrophy involving the right temporal lobe -06/03 echocardiogram shows normal echocardiogram, LV normal size, normal LV wall thickness, LVEF 60-75 %, mild diastolic dysfunction present, mild to moderate calcification of the noncoronary cusp noted, mild aortic stenosis, mild AR, IVC is normal in size and collapses greater than 50% with inspiration, saline bubble contrast intravenous injection does not demonstrate PFO -06/03 CTA neck/head pending -Aspirin, Lipitor -05/26 lipid panel: Triglycerides 150, cholesterol 145, LDL 84, HDL 24 -ST/PT/OT consulted, patient is currently vented CV: ?Hypertension -No recorded home medications -Amlodipine -Hydralazine as needed -Blood pressure monitoring per protocol ? CAD -05/26 CT chest/abdomen/pelvis without contrast dense atherosclerotic calcification of the thoracic aorta distribution of the coronary vessels, scattered patchy ill-defined densities within the mid and lower lung zone, mild prominence of both ureters, dense atherosclerotic calcification along the abdominal aorta without evidence of aneurysm -Need to follow-up with PCP -Station initiated for CVA Elevated troponin -Possibly NSTEMI in setting of SIXTO -Trend CE Respiratory: Acute hypoxemic respiratory failure -On mechanical ventilation -Wean mechanical ventilation as tolerated -VAP bundle -ABGs as needed -CXR daily for 7 days per protocol -Daily SBT -[facility] plans for trial extubation today FEN/GI: Acute kidney injury/ATN, resolved -Presented with BUN/creatinine of 118/5.4 -Nephrology consulted, appreciate recommendations -Strict intake and output -Daily weights -Nephrotoxic medications -Renally dose medications -On tube feedings -SSI, Accu-Cheks every 6 Protein calorie malnutrition -Nutrition consulted, patient recommendations Hypocalcemia -Repleted with IV calcium without change -Started on oral calcium replacement supplements -Trend BMP Hypernatremia/hypochloremia -06/05 sodium 150 -Nursing instructed on free water flush orders for hyponatremia per nutrition -Trend BMP : Urinary Retention -White placed for urinary retention -Flomax -Added Proscar ID/Heme: Sepsis -Presented with with tachycardia, febrile to 102.8 degrees Fahrenheit, acute hypoxic respiratory failure, acute kidney injury, pneumonia on imaging, pyuria -s/p abx therapy -05/26 CT chest showed faint bilateral patchy pulmonary opacities suggestive of infectious process that is pneumonia -05/26 blood cultures x2 no growth after 5 days -05/26 sputum culture grew E. coli, Staph aureus (pansensitive) -05/31 blood cultures x2 no growth to date UTI -s/p abx therapy -05/26 UA with pyuria -05/26 urine culture with no growth to date Bilateral PNA -s/p abx therapy -seen on CT chest Anemia -Transfuse for hgb <7 -Stool guiac pending -05/23 coag studies: PT 14, INR 1.03 Leukocytosis -Trend CBC Thrombocytopenia (resolved) DVT/GI prophylaxis: Heparin subq, SCDs to bilateral LE while in bed, PPI Disposition: ICU Lines: condom cath, PIVs The high probability of a clinically significant, sudden or life threatening deterioration of the [respiratory, renal and electrolyte] system(s) required my full and direct attention, intervention and personal management. The aggregate critical care time was [35] minutes. This time is in addition to time spent performing reported procedures but includes the following: [x] Data Review and interpretation [x] Patient assessment and monitoring of vital signs [x] Documentation [x] Medication orders and management History Interval history: This 81-year-old male with hypertension and dementia who presents to [facility] ER on 05/26 with decreased responsiveness since 05/25 per family. Patient was placed on nasopharyngeal airway and bagged by EMS on route to [facility]. Upon arrival to emergency indices 05/27/2021. Patient with severe hypernatremia secondary to dehydration/vasomotor nephropathy. Continue IV fluid hydration per nephrology recommendations. Patient with a creatinine September 2019 of 0.7. On this admission patient was noted to have a creatinine of 5.4. Slightly improved today to 4.2. Etiology secondary to vasomotor nephropathy/acute kidney injury/volume depletion/dehydration. Follow-up urine studies. CT scan of the abdomen pelvis did not reveal any obstruction. CT chest revealed bilateral pulmonary opacities. Patient with elevated D-dimer that may be secondary to Covid coagulopathy. Consider VQ scan. Unable to perform CTA given renal insufficiency. Await pulmonary consultation 05/28/2021. Hyponatremia has improved to 159. Continue IV fluid hydration per nephrology recommendations. Creatinine has also improved to 2.9. No o bstruction per CT scan. COVID-19 testing negative on 05/27/2021. Continue IV antibiotics for bilateral pneumonia and UTI. Follow-up blood and urine cultures. Consider ID consultation patient remains on mechanical ventilation but undergoing PSV trials. Patient currently with PSV with FiO2 of 30% PEEP of 6 and pressure support of 10. Continue vent weaning per pulmonary. 05/29/2021. Hypernatremia persists with sodium improving to 154 yesterday evening but now back to 159. Creatinine has improved to 2.4. Nephrology following.Continue current antibiotics for pneumonia and UTI. Consider CTA of chest for elevated D-dimer when creatinine back to baseline. Patient currently on AC mode ventilation rate of 16, tidal volume 450, FiO2 30% and PEEP of 6. 05/30/2021. Sodium remains elevated at 162 and creatinine elevated at 2.1. Continue free water with 300 mL every 4 hours. Nephrology held IV D5W. Resume IV fluids per nephrology recommendations. CT scan of the abdomen negative for hydronephrosis. Continue IV antibiotics. Patient remains on mechanical ventilation AC mode rate of 20, tidal volume 450, FiO2 40% and a PEEP of 6. 7/12: Patient has hypernatremia improved to 149, this a.m. patient was noted to have a potassium of 4.5 and potassium and his D5 was discontinued and changed to D5W. This evening he was noted the patient had a potassium of 3.4 which was repleted. Patient was started to have hypophosphatemia today which was repleted. Antibiotics were escalated to's ceftriaxone for pansensitive E. coli patient received 7 days of therapy so repeat blood cultures were ordered. 06/01: CPAP trial yesterday lasted from 9am-5pm, will retry CPAP today. Replace Mg, Phos, K, DC IVF in setting of improved Na 06/02: Hypocalcemia today which was corrected. Given neuro status unchanged, Neuro consult requested who ordered MRI B and EEG. CPAP trial. drop in h/h, occult stool, coags, type and screen ordered. remove white, bladder scan and straight cath as needed 06/03: Hypocalcemia again today, started on PO Ca supplements, h/h stable from yesterday, MRI B pending, EEG completed, added proscar re RN needing to physically press on bladder for urine. Decrease in BP med. [facility] plans for trial extubation 06/04 MRI showed cerebral infarct, neurology , CCM and Dr. Merrill aware. No acute events reported overnight. CPAP trial this a.m. General surgery consulted for the trach/PEG. Dr. Merrill and Dr. Guo spoke to family at bedside. 06/05: Family at bedside to decide for trach/PEG. Overnight patient had episode of desaturation and his FiO2 was at 100%. Later in the morning was down to 50% patient was satting 100% by CCM. Hospitalist Physical - Constitutional Vitals: Temp Pulse Resp BP Pulse Ox 99.4 F 81 21 118/58 100 06/05/21 03:32 06/05/21 14:00 06/05/21 14:00 06/05/21 14:00 06/05/21 14:00 General appearance: Present: no acute distress, other (Response to tactile stimuli) - EENT Eyes: Present: PERRL ENT: dentition normal - Neck Neck: Present: normal ROM - Respiratory Respiratory effort: normal Respiratory: bilateral: CTA - Cardiovascular Rhythm: regular Heart Sounds: Present: S1 & S2. Absent: systolic murmur, diastolic murmur - Extremities Extremities: no ischemia, pulses intact, pulses symmetrical, No edema, normal temperature, normal color Peripheral Pulses: within normal limits - Abdominal General gastrointestinal: soft, non-tender, non-distended, normal bowel sounds - Integumentary Integumentary: Present: warm, dry - Psychiatric Psychiatric: other (not interactive) - Neurologic Neurologic: other (Minimally responsive to tactile stimuli) - Allied Health Allied health notes reviewed: nursing, RT, social work HEART Score - HEART Score Troponin: Troponin T 0.038 ng/mL (0.00-0.029) H 05/26/21 17:08 Results - Labs CBC & Chem 7: 06/05/21 09:41 06/05/21 04:59 Labs: Laboratory Last Values WBC 21.2 K/mm3 (4.5-11.0) H 06/05/21 09:41 RBC 2.83 M/mm3 (3.65-5.03) L 06/05/21 09:41 Hgb 7.7 gm/dl (11.8-15.2) L 06/05/21 09:41 Hct 23.5 % (35.5-45.6) L 06/05/21 09:41 MCV 83 fl (84-94) L 06/05/21 09:41 MCH 27 pg (28-32) L 06/05/21 09:41 MCHC 33 % (32-34) 06/05/21 09:41 RDW 14.6 % (13.2-15.2) 06/05/21 09:41 Plt Count 341 K/mm3 (140-440) D 06/05/21 09:41 Lymph % (Auto) 30.3 % (13.4-35.0) 05/26/21 17:08 Lasalle % (Auto) 6.1 % (0.0-7.3) 05/26/21 17:08 Eos % (Auto) 1.0 % (0.0-4.3) 05/26/21 17:08 Baso % (Auto) 0.5 % (0.0-1.8) 05/26/21 17:08 Lymph # (Auto) 3.0 K/mm3 (1.2-5.4) 05/26/21 17:08 [place]alle # (Auto) 0.6 K/mm3 (0.0-0.8) 05/26/21 17:08 Eos # (Auto) 0.1 K/mm3 (0.0-0.4) 05/26/21 17:08 Baso # (Auto) 0.1 K/mm3 (0.0-0.1) 05/26/21 17:08 Add Manual Diff Complete 05/27/21 02:00 Total Counted 100 05/27/21 02:00 Seg Neutrophils % Electronic Security Technician 05/27/21 02:00 Seg Neuts % (Manual) 93.0 % (40.0-70.0) H 05/27/21 02:00 Lymphocytes % (Manual) 3.0 % (13.4-35.0) L 05/27/21 02:00 Monocytes % (Manual) 4.0 % (0.0-7.3) 05/27/21 02:00 Nucleated RBC % Not Reportable 05/27/21 02:00 Seg Neutrophils # 6.1 K/mm3 (1.8-7.7) 05/26/21 17:08 Seg Neutrophils # Man 25.2 K/mm3 (1.8-7.7) H 05/27/21 02:00 Band Neutrophils # 0.0 K/mm3 05/27/21 02:00 Lymphocytes # (Manual) 0.8 K/mm3 (1.2-5.4) L 05/27/21 02:00 Abs React Lymphs (Man) 0.0 K/mm3 05/27/21 02:00 Monocytes # (Manual) 1.1 K/mm3 (0.0-0.8) H 05/27/21 02:00 Eosinophils # (Manual) 0.0 K/mm3 (0.0-0.4) 05/27/21 02:00 Basophils # (Manual) 0.0 K/mm3 (0.0-0.1) 05/27/21 02:00 Metamyelocytes # 0.0 K/mm3 05/27/21 02:00 Myelocytes # 0.0 K/mm3 05/27/21 02:00 Promyelocytes # 0.0 K/mm3 05/27/21 02:00 Blast Cells # 0.0 K/mm3 05/27/21 02:00 WBC Morphology Not Reportable 05/27/21 02:00 Hypersegmented Neuts Not Reportable 05/27/21 02:00 Hyposegmented Neuts Not Reportable 05/27/21 02:00 Hypogranular Neuts Not Reportable 05/27/21 02:00 Smudge Cells Not Reportable 05/27/21 02:00 Toxic Granulation Not Reportable 05/27/21 02:00 Toxic Vacuolation Not Reportable 05/27/21 02:00 Dohle Bodies Not Reportable 05/27/21 02:00 Pelger-Huet Anomaly Not Reportable 05/27/21 02:00 Daniel Rods Not Reportable 05/27/21 02:00 Platelet Estimate Not Reportable 05/27/21 02:00 Clumped Platelets Not Reportable 05/27/21 02:00 Plt Clumps, EDTA Not Reportable 05/27/21 02:00 Large Platelets Not Reportable 05/27/21 02:00 Giant Platelets Not Reportable 05/27/21 02:00 Platelet Satelliting Not Reportable 05/27/21 02:00 Plt Morphology Comment Not Reportable 05/27/21 02:00 RBC Morphology Normal 05/27/21 02:00 Dimorphic RBCs Not Reportable 05/27/21 02:00 Polychromasia Not Reportable 05/27/21 02:00 Hypochromasia Not Reportable 05/27/21 02:00 Poikilocytosis Not Reportable 05/27/21 02:00 Anisocytosis Not Reportable 05/27/21 02:00 Microcytosis Not Reportable 05/27/21 02:00 Macrocytosis Not Reportable 05/27/21 02:00 Spherocytes Not Reportable 05/27/21 02:00 Pappenheimer Bodies Not Reportable 05/27/21 02:00 Sickle Cells Not Reportable 05/27/21 02:00 Target Cells Not Reportable 05/27/21 02:00 Tear Drop Cells Not Reportable 05/27/21 02:00 Ovalocytes Not Reportable 05/27/21 02:00 Helmet Cells Not Reportable 05/27/21 02:00 Huertas-Woodburn Bodies Not Reportable 05/27/21 02:00 Macon Rings Not Reportable 05/27/21 02:00 Evangeline Cells Not Reportable 05/27/21 02:00 Bite Cells Not Reportable 05/27/21 02:00 Crenated Cell Not Reportable 05/27/21 02:00 Elliptocytes Not Reportable 05/27/21 02:00 Acanthocytes (Spur) Not Reportable 05/27/21 02:00 Rouleaux Not Reportable 05/27/21 02:00 Hemoglobin C Crystals Not Reportable 05/27/21 02:00 Schistocytes Not Reportable 05/27/21 02:00 Malaria parasites Not Reportable 05/27/21 02:00 Arik Bodies Not Reportable 05/27/21 02:00 Hem Pathologist Commnt No 05/27/21 02:00 PT 14.0 Sec. (12.2-14.9) 06/02/21 16:57 INR 1.03 (0.87-1.13) 06/02/21 16:57 APTT 42.4 Sec. (24.2-36.6) H 05/26/21 17:08 D-Dimer 8255.81 ng/mlDDU (0-234) H 05/26/21 17:08 ABG pH 7.555 (7.320-7.450) H 06/01/21 04:00 POC ABG pCO2 27.6 mmHg (32.0-48.0) L 06/01/21 04:00 POC ABG pO2 65.6 mmHg (83-108) L 06/01/21 04:00 POC ABG HCO3 23.9 06/01/21 04:00 ABG O2 Saturation 94.5 (0-100) 06/01/21 04:00 POC ABG Base Excess 2.0 06/01/21 04:00 ABG Hemoglobin 9.2 (12.0-17.5) L 06/01/21 04:00 ABG Oxyhemoglobin 94.1 (94-98) 06/01/21 04:00 ABG Methemoglobin 0.3 (0.0-1.5) 06/01/21 04:00 ABG Sodium 137.4 mmol/L (136.0-145.0) 06/01/21 04:00 ABG Potassium 3.5 mmol/L (3.40-4.50) 06/01/21 04:00 ABG Chloride 111.0 mmol/L (98-107) H 06/01/21 04:00 ABG Glucose 143 mg/dL (65-95) H 06/01/21 04:00 Carboxyhemoglobin 0.1 (0.5-1.5) L 06/01/21 04:00 FiO2 % 40.0 06/01/21 04:00 Sodium 150 mmol/L (137-145) H 06/05/21 04:59 Potassium 3.9 mmol/L (3.6-5.0) 06/05/21 04:59 Chloride 112.0 mmol/L (98-107) H 06/05/21 04:59 Carbon Dioxide 27 mmol/L (22-30) 06/05/21 04:59 Anion Gap 15 mmol/L 06/05/21 04:59 BUN 36 mg/dL (9-20) H 06/05/21 04:59 Creatinine 0.6 mg/dL (0.8-1.3) L 06/05/21 04:59 Estimated GFR > 60 ml/min 06/05/21 04:59 BUN/Creatinine Ratio 60 % 06/05/21 04:59 Glucose 113 mg/dL (75-100) H 06/05/21 04:59 POC Glucose 116 mg/dL (70-105) H 06/05/21 14:01 Lactic Acid 1.60 mmol/L (0.7-2.0) 05/27/21 12:08 Calcium 7.9 mg/dL (8.4-10.2) L D 06/05/21 04:59 Phosphorus 2.50 mg/dL (2.5-4.5) 06/03/21 06:20 Magnesium 2.10 mg/dL (1.7-2.3) 06/02/21 05:24 Ferritin 598.3 ng/mL (30.0-300.0) H 05/26/21 17:08 Total Bilirubin 0.50 mg/dL (0.1-1.2) 05/27/21 02:00 AST 66 units/L (5-40) H 05/27/21 02:00 ALT 64 units/L (7-56) H 05/27/21 02:00 Alkaline Phosphatase 126 units/L (35-129) 05/27/21 02:00 Ammonia 46.0 umol/L (25-60) 05/26/21 17:08 Lactate Dehydrogenase 550 units/L (91-180) H 05/26/21 17:08 Troponin T 0.038 ng/mL (0.00-0.029) H 05/26/21 17:08 C-Reactive Protein 4.20 mg/dL (0.00-1.30) H 05/26/21 17:08 Total Protein 6.6 g/dL (6.3-8.2) 05/27/21 02:00 Albumin 2.9 g/dL (3.9-5) L 05/27/21 02:00 Albumin/Globulin Ratio 0.8 % 05/27/21 02:00 Triglycerides 150 mg/dL (2-149) H 05/26/21 17:08 Cholesterol 145 mg/dL (50-199) 05/26/21 17:08 LDL Cholesterol Direct 84 mg/dL (50-130) 05/26/21 17:08 HDL Cholesterol 24 mg/dL (40-59) L 05/26/21 17:08 Cholesterol/HDL Ratio 6.04 % 05/26/21 17:08 Procalcitonin 0.29 ng/mL (<0.15) 05/26/21 17:08 TSH 0.342 mlU/mL (0.270-4.200) 05/26/21 17:08 Arterial Blood Glucose 143 mg/dL (65-95) H 06/01/21 04:00 Arterial Blood Ionized Calcium 3.7 mg/dL (4.6-5.3) L 06/01/21 04:00 Urine Color Yellow (Yellow) 05/26/21 Unknown Urine Turbidity Clear (Clear) 05/26/21 Unknown Urine pH 5.0 (5.0-7.0) 05/26/21 Unknown Ur Specific King 1.011 (1.003-1.030) 05/26/21 Unknown Urine Protein <15 mg/dl mg/dL (Negative) 05/26/21 Unknown Urine Glucose (UA) Neg mg/dL (Negative) 05/26/21 Unknown Urine Ketones Neg mg/dL (Negative) 05/26/21 Unknown Urine Blood Sm (Negative) 05/26/21 Unknown Urine Nitrite Neg (Negative) 05/26/21 Unknown Urine Bilirubin Neg (Negative) 05/26/21 Unknown Urine Urobilinogen < 2.0 mg/dL (<2.0) 05/26/21 Unknown Ur Leukocyte Esterase Neg (Negative) 05/26/21 Unknown Urine WBC (Auto) 16.0 /HPF (0.0-6.0) H 05/26/21 Unknown Urine RBC (Auto) 2.0 /HPF (0.0-6.0) 05/26/21 Unknown Urine Bacteria (Auto) 1+ /HPF (Negative) 05/26/21 Unknown Urine Osmolality 392 Mosm/kg 05/26/21 Unknown Urine Creatinine 51.6 mg/dL (0.1-20.0) H 05/26/21 Unknown Urine Sodium 96 mmol/L 05/26/21 Unknown Random Vancomycin 14.8 ug/mL (0-40.0) 05/30/21 08:29 Salicylates < 0.3 mg/dL (2.8-20.0) L 05/26/21 17:08 Acetaminophen < 5.0 ug/mL (10.0-30.0) L 05/26/21 17:08 Coronavirus (PCR) Negative (Negative) 05/27/21 Unknown Blood Type O POSITIVE 06/02/21 16:57 Antibody Screen Negative 06/02/21 16:57 Microbiology: Microbiology 06/04/21 09:56 Peripheral/Venous Blood Culture - Preliminary NO GROWTH AFTER 24 HOURS 06/04/21 15:59 Peripheral/Venous Blood Culture - Preliminary Culture in Progress 05/31/21 15:23 Peripheral/Venous Blood Culture - Preliminary NO GROWTH AFTER 4 DAYS 05/31/21 15:23 Peripheral/Venous Blood Culture - Preliminary NO GROWTH AFTER 4 DAYS White/IV: Voiding Method Condom Catheter Active Medications - Current Medications Current Medications: Generic Name Dose Route Start Last Admin Trade Name Freq PRN Reason Stop Dose Admin Acetaminophen 650 mg 05/30/21 08:30 06/03/21 21:20 Acetaminophen 325 Mg/10.15 Ml Oral Liqd Unit Dose FEEDTUBE 650 mg Q6H PRN Administration Pain 1 -3, fever >100.5 Albuterol 2.5 mg 05/26/21 18:34 Albuterol 2.5 Mg/3 Ml Nebu IH Q3HRT PRN Shortness Of Breath Amlodipine Besylate 5 mg 06/03/21 10:00 06/05/21 09:14 Amlodipine 5 Mg Tab PO 5 mg QDAY ONDINA Administration Lipase/Protease/Amylase 1 each 05/28/21 08:24 Lipase 10,500/Protease 25,000/Amylase 43,750 (Units) Dr De Leon FEEDTUBE PRN PRN For Clogged Feeding Tube Aspirin 325 mg 06/04/21 10:00 06/05/21 09:14 Aspirin Ec 325 Mg Tab PO 325 mg QDAY ONDINA Administration Atorvastatin Calcium 40 mg 06/03/21 22:00 06/04/21 21:24 Atorvastatin 40 Mg Tab PO 40 mg QHS ONDINA Administration Famotidine 20 mg 05/28/21 10:00 06/05/21 09:15 Famotidine 20 Mg Tab PO 20 mg DAILY ONDINA Administration Finasteride 5 mg 06/03/21 10:00 06/05/21 09:15 Finasteride 5 Mg Tab PO 5 mg QDAY ONDINA Administration Heparin Sodium (Porcine) 5,000 unit 05/26/21 22:00 06/05/21 09:14 Heparin 5,000 Unit/1 Ml Vial SUB-Q 5,000 unit Q12HR ONDINA Administration Hydrophilic Ointment 1 applic 05/26/21 17:02 Lip Therapy Vaseline TP Q2HR PRN Dry Lips Propofol 1,000 mg in 100 mls @ 1.361 mls/hr 05/30/21 06:00 05/31/21 08:50 Diprivan 10 Mg/Ml IV 0 mcg/kg/min TITR ONDNIA 0 mls/hr Titration Protocol 5 MCG/KG/MIN Multi-Ingred Cream/Lotion/Oil/Oint 1 applic 05/26/21 17:02 Mineral Oil/Petrolatum, White Ophth Oint 3.5 Gm OU Q4HR PRN Dry Eye(s) Senna/Docusate Sodium 1 tab 05/26/21 22:00 06/05/21 09:15 Sennosides/Docusate Sodium 8.6/50 Mg Tab FEEDTUBE Not Given BID ONDINA Simple Syrup 15 ml 05/28/21 08:24 Simple Syrup 15 Ml FEEDTUBE PRN PRN Hypoglycemia Simple Syrup 30 ml 05/28/21 08:24 Simple Syrup 15 Ml FEEDTUBE PRN PRN Hypoglycemia Sodium Bicarbonate 325 mg 05/28/21 08:24 Sodium Bicarbonate 325 Mg Tab FEEDTUBE PRN PRN For Clogged Feeding Tube Sodium Chloride 10 ml 05/26/21 22:00 06/05/21 09:15 Sodium Chloride 0.9% 10 Ml Flush Syringe IV 10 ml BID ONDINA Administration Sodium Chloride 10 ml 05/26/21 18:34 Sodium Chloride 0.9% 10 Ml Flush Syringe IV PRN PRN LINE FLUSH Tamsulosin HCl 0.8 mg 05/29/21 12:00 06/05/21 09:14 Tamsulosin 0.4 Mg Cap PO 0.8 mg QDAY ONDINA Administration Nutrition/Malnutrition Assess - Dietary Evaluation Nutrition/Malnutrition Findings: Nutrition Notes Start: 05/27/21 08:35 Freq: Status: Active Protocol: Document 06/04/21 10:42 (Rec: 06/04/21 10:43 [id number]) Nutrition Notes Initial or Follow up Reassessment Current Diagnosis Acute Kidney Injury,Sepsis, Hypertension,Respiratory Failure Other Pertinent Diagnosis UTI, encephalopathy, dehydration, COVID PUI Current Diet Glucerna 1.2 at 45 ml/hr Labs/Tests 06/03: Ca 6.8 Pertinent Medications Calcium carbonate Height 5 ft 2 in Weight 45.359 kg [place] Body Weight (kg) 53.63 BMI 18.3 Weight Status Underweight Subjective/Other Information FU for TF tolerance. Pt tolerating TF at goal rate. Pt had BM yesterday. Percent of energy/protein needs met: 100%/100% Burn Absent Trauma Absent Current % PO Negligible Minimum of two criteria No physical signs of malnutrition #1 Nutrition Diagnosis Inadequate oral intake Diagnosis Progress(for reassessment Continues documentation) Is patient on ventilator? Yes Is Patient Ambulatory and/or Out of Bed No REE-([facility]-confined to bed) 1258.548 Calculation Used for Recommendations [facility] Additional Notes Protein: (1.2-2g/kg) 54-91g Fluid: 1 ml/kcal or per MD Nutrition Intervention Change Diet Order: Continue Nutrition Support: Glucerna 1.2 at 45 ml/hr Flush 75 ml q4h. Kcal 1,296 Protein (gm) 65 Fluid (mL) 869 Goal #1 Meet at least 75% of protein and energy needs via TF Anticipated Discharge Needs: Unable to determine at this time Follow-Up By: 06/11/21 Additional Comments FU for TF tolerance <JASWINDER MERRILL - Last Filed: 06/06/21 11:43> Assessment and Plan Assessment and plan: Agree with assessment and plan as outlined by nurse practitioner as above, patient seen and examined, continues in the same unresponsive state. Family wi ll make decision on trach and PEG today Hospitalist Physical - Constitutional Vitals: Temp Pulse Resp BP Pulse Ox 102.2 F H 80 24 135/67 100 06/06/21 03:31 06/06/21 11:15 06/06/21 11:15 06/06/21 11:15 06/06/21 11:15 HEART Score - HEART Score Troponin: Troponin T 0.038 ng/mL (0.00-0.029) H 05/26/21 17:08 Results - Labs CBC & Chem 7: 06/05/21 09:41 06/05/21 04:59 Labs: Laboratory Last Values WBC 21.2 K/mm3 (4.5-11.0) H 06/05/21 09:41 RBC 2.83 M/mm3 (3.65-5.03) L 06/05/21 09:41 Hgb 7.7 gm/dl (11.8-15.2) L 06/05/21 09:41 Hct 23.5 % (35.5-45.6) L 06/05/21 09:41 MCV 83 fl (84-94) L 06/05/21 09:41 MCH 27 pg (28-32) L 06/05/21 09:41 MCHC 33 % (32-34) 06/05/21 09:41 RDW 14.6 % (13.2-15.2) 06/05/21 09:41 Plt Count 341 K/mm3 (140-440) D 06/05/21 09:41 Lymph % (Auto) 30.3 % (13.4-35.0) 05/26/21 17:08 [place] % (Auto) 6.1 % (0.0-7.3) 05/26/21 17:08 Eos % (Auto) 1.0 % (0.0-4.3) 05/26/21 17:08 Baso % (Auto) 0.5 % (0.0-1.8) 05/26/21 17:08 Lymph # (Auto) 3.0 K/mm3 (1.2-5.4) 05/26/21 17:08 [place] # (Auto) 0.6 K/mm3 (0.0-0.8) 05/26/21 17:08 Eos # (Auto) 0.1 K/mm3 (0.0-0.4) 05/26/21 17:08 Baso # (Auto) 0.1 K/mm3 (0.0-0.1) 05/26/21 17:08 Add Manual Diff Complete 05/27/21 02:00 Total Counted 100 05/27/21 02:00 Seg Neutrophils % Electronic Security Technician 05/27/21 02:00 Seg Neuts % (Manual) 93.0 % (40.0-70.0) H 05/27/21 02:00 Lymphocytes % (Manual) 3.0 % (13.4-35.0) L 05/27/21 02:00 Monocytes % (Manual) 4.0 % (0.0-7.3) 05/27/21 02:00 Nucleated RBC % Not Reportable 05/27/21 02:00 Seg Neutrophils # 6.1 K/mm3 (1.8-7.7) 05/26/21 17:08 Seg Neutrophils # Man 25.2 K/mm3 (1.8-7.7) H 05/27/21 02:00 Band Neutrophils # 0.0 K/mm3 05/27/21 02:00 Lymphocytes # (Manual) 0.8 K/mm3 (1.2-5.4) L 05/27/21 02:00 Abs React Lymphs (Man) 0.0 K/mm3 05/27/21 02:00 Monocytes # (Manual) 1.1 K/mm3 (0.0-0.8) H 05/27/21 02:00 Eosinophils # (Manual) 0.0 K/mm3 (0.0-0.4) 05/27/21 02:00 Basophils # (Manual) 0.0 K/mm3 (0.0-0.1) 05/27/21 02:00 Metamyelocytes # 0.0 K/mm3 05/27/21 02:00 Myelocytes # 0.0 K/mm3 05/27/21 02:00 Promyelocytes # 0.0 K/mm3 05/27/21 02:00 Blast Cells # 0.0 K/mm3 05/27/21 02:00 WBC Morphology Not Reportable 05/27/21 02:00 Hypersegmented Neuts Not Reportable 05/27/21 02:00 Hyposegmented Neuts Not Reportable 05/27/21 02:00 Hypogranular Neuts Not Reportable 05/27/21 02:00 Smudge Cells Not Reportable 05/27/21 02:00 Toxic Granulation Not Reportable 05/27/21 02:00 Toxic Vacuolation Not Reportable 05/27/21 02:00 Dohle Bodies Not Reportable 05/27/21 02:00 Pelger-Huet Anomaly Not Reportable 05/27/21 02:00 Daniel Rods Not Reportable 05/27/21 02:00 Platelet Estimate Not Reportable 05/27/21 02:00 Clumped Platelets Not Reportable 05/27/21 02:00 Plt Clumps, EDTA Not Reportable 05/27/21 02:00 Large Platelets Not Reportable 05/27/21 02:00 Giant Platelets Not Reportable 05/27/21 02:00 Platelet Satelliting Not Reportable 05/27/21 02:00 Plt Morphology Comment Not Reportable 05/27/21 02:00 RBC Morphology Normal 05/27/21 02:00 Dimorphic RBCs Not Reportable 05/27/21 02:00 Polychromasia Not Reportable 05/27/21 02:00 Hypochromasia Not Reportable 05/27/21 02:00 Poikilocytosis Not Reportable 05/27/21 02:00 Anisocytosis Not Reportable 05/27/21 02:00 Microcytosis Not Reportable 05/27/21 02:00 Macrocytosis Not Reportable 05/27/21 02:00 Spherocytes Not Reportable 05/27/21 02:00 Pappenheimer Bodies Not Reportable 05/27/21 02:00 Sickle Cells Not Reportable 05/27/21 02:00 Target Cells Not Reportable 05/27/21 02:00 Tear Drop Cells Not Reportable 05/27/21 02:00 Ovalocytes Not Reportable 05/27/21 02:00 Helmet Cells Not Reportable 05/27/21 02:00 Huertas-[place] Bodies Not Reportable 05/27/21 02:00 [place] Rings Not Reportable 05/27/21 02:00 Evangeline Cells Not Reportable 05/27/21 02:00 Bite Cells Not Reportable 05/27/21 02:00 Crenated Cell Not Reportable 05/27/21 02:00 Elliptocytes Not Reportable 05/27/21 02:00 Acanthocytes (Spur) Not Reportable 05/27/21 02:00 Rouleaux Not Reportable 05/27/21 02:00 Hemoglobin C Crystals Not Reportable 05/27/21 02:00 Schistocytes Not Reportable 05/27/21 02:00 Malaria parasites Not Reportable 05/27/21 02:00 Arik Bodies Not Reportable 05/27/21 02:00 Hem Pathologist Commnt No 05/27/21 02:00 PT 14.0 Sec. (12.2-14.9) 06/02/21 16:57 INR 1.03 (0.87-1.13) 06/02/21 16:57 APTT 42.4 Sec. (24.2-36.6) H 05/26/21 17:08 D-Dimer 8255.81 ng/mlDDU (0-234) H 05/26/21 17:08 ABG pH 7.555 (7.320-7.450) H 06/01/21 04:00 POC ABG pCO2 27.6 mmHg (32.0-48.0) L 06/01/21 04:00 POC ABG pO2 65.6 mmHg (83-108) L 06/01/21 04:00 POC ABG HCO3 23.9 06/01/21 04:00 ABG O2 Saturation 94.5 (0-100) 06/01/21 04:00 POC ABG Base Excess 2.0 06/01/21 04:00 ABG Hemoglobin 9.2 (12.0-17.5) L 06/01/21 04:00 ABG Oxyhemoglobin 94.1 (94-98) 06/01/21 04:00 ABG Methemoglobin 0.3 (0.0-1.5) 06/01/21 04:00 ABG Sodium 137.4 mmol/L (136.0-145.0) 06/01/21 04:00 ABG Potassium 3.5 mmol/L (3.40-4.50) 06/01/21 04:00 ABG Chloride 111.0 mmol/L (98-107) H 06/01/21 04:00 ABG Glucose 143 mg/dL (65-95) H 06/01/21 04:00 Carboxyhemoglobin 0.1 (0.5-1.5) L 06/01/21 04:00 FiO2 % 40.0 06/01/21 04:00 Sodium 150 mmol/L (137-145) H 06/05/21 04:59 Potassium 3.9 mmol/L (3.6-5.0) 06/05/21 04:59 Chloride 112.0 mmol/L (98-107) H 06/05/21 04:59 Carbon Dioxide 27 mmol/L (22-30) 06/05/21 04:59 Anion Gap 15 mmol/L 06/05/21 04:59 BUN 36 mg/dL (9-20) H 06/05/21 04:59 Creatinine 0.6 mg/dL (0.8-1.3) L 06/05/21 04:59 Estimated GFR > 60 ml/min 06/05/21 04:59 BUN/Creatinine Ratio 60 % 06/05/21 04:59 Glucose 113 mg/dL (75-100) H 06/05/21 04:59 POC Glucose 101 mg/dL (70-105) 06/06/21 11:07 Lactic Acid 1.60 mmol/L (0.7-2.0) 05/27/21 12:08 Calcium 7.9 mg/dL (8.4-10.2) L D 06/05/21 04:59 Phosphorus 2.50 mg/dL (2.5-4.5) 06/03/21 06:20 Magnesium 2.10 mg/dL (1.7-2.3) 06/02/21 05:24 Ferritin 598.3 ng/mL (30.0-300.0) H 05/26/21 17:08 Total Bilirubin 0.50 mg/dL (0.1-1.2) 05/27/21 02:00 AST 66 units/L (5-40) H 05/27/21 02:00 ALT 64 units/L (7-56) H 05/27/21 02:00 Alkaline Phosphatase 126 units/L (35-129) 05/27/21 02:00 Ammonia 46.0 umol/L (25-60) 05/26/21 17:08 Lactate Dehydrogenase 550 units/L (91-180) H 05/26/21 17:08 Troponin T 0.038 ng/mL (0.00-0.029) H 05/26/21 17:08 C-Reactive Protein 4.20 mg/dL (0.00-1.30) H 05/26/21 17:08 Total Protein 6.6 g/dL (6.3-8.2) 05/27/21 02:00 Albumin 2.9 g/dL (3.9-5) L 05/27/21 02:00 Albumin/Globulin Ratio 0.8 % 05/27/21 02:00 Triglycerides 150 mg/dL (2-149) H 05/26/21 17:08 Cholesterol 145 mg/dL (50-199) 05/26/21 17:08 LDL Cholesterol Direct 84 mg/dL (50-130) 05/26/21 17:08 HDL Cholesterol 24 mg/dL (40-59) L 05/26/21 17:08 Cholesterol/HDL Ratio 6.04 % 05/26/21 17:08 Procalcitonin 0.29 ng/mL (<0.15) 05/26/21 17:08 TSH 0.342 mlU/mL (0.270-4.200) 05/26/21 17:08 Arterial Blood Glucose 143 mg/dL (65-95) H 06/01/21 04:00 Arterial Blood Ionized Calcium 3.7 mg/dL (4.6-5.3) L 06/01/21 04:00 Urine Color Yellow (Yellow) 05/26/21 Unknown Urine Turbidity Clear (Clear) 05/26/21 Unknown Urine pH 5.0 (5.0-7.0) 05/26/21 Unknown Ur Specific King 1.011 (1.003-1.030) 05/26/21 Unknown Urine Protein <15 mg/dl mg/dL (Negative) 05/26/21 Unknown Urine Glucose (UA) Neg mg/dL (Negative) 05/26/21 Unknown Urine Ketones Neg mg/dL (Negative) 05/26/21 Unknown Urine Blood Sm (Negative) 05/26/21 Unknown Urine Nitrite Neg (Negative) 05/26/21 Unknown Urine Bilirubin Neg (Negative) 05/26/21 Unknown Urine Urobilinogen < 2.0 mg/dL (<2.0) 05/26/21 Unknown Ur Leukocyte Esterase Neg (Negative) 05/26/21 Unknown Urine WBC (Auto) 16.0 /HPF (0.0-6.0) H 05/26/21 Unknown Urine RBC (Auto) 2.0 /HPF (0.0-6.0) 05/26/21 Unknown Urine Bacteria (Auto) 1+ /HPF (Negative) 05/26/21 Unknown Urine Osmolality 392 Mosm/kg 05/26/21 Unknown Urine Creatinine 51.6 mg/dL (0.1-20.0) H 05/26/21 Unknown Urine Sodium 96 mmol/L 05/26/21 Unknown Random Vancomycin 14.8 ug/mL (0-40.0) 05/30/21 08:29 Salicylates < 0.3 mg/dL (2.8-20.0) L 05/26/21 17:08 Acetaminophen < 5.0 ug/mL (10.0-30.0) L 05/26/21 17:08 Coronavirus (PCR) Negative (Negative) 05/27/21 Unknown Blood Type O POSITIVE 06/02/21 16:57 Antibody Screen Negative 06/02/21 16:57 Microbiology: Microbiology 06/04/21 15:59 Peripheral/Venous Blood Culture - Preliminary NO GROWTH AFTER 24 HOURS 05/31/21 15:23 Peripheral/Venous Blood Culture - Final NO GROWTH AFTER 5 DAYS 05/31/21 15:23 Peripheral/Venous Blood Culture - Final NO GROWTH AFTER 5 DAYS 06/04/21 09:56 Peripheral/Venous Blood Culture - Preliminary NO GROWTH AFTER 24 HOURS White/IV: Voiding Method Condom Catheter Active Medications - Current Medications Current Medications: Generic Name Dose Route Start Last Admin Trade Name Freq PRN Reason Stop Dose Admin Acetaminophen 650 mg 05/30/21 08:30 06/06/21 05:02 Acetaminophen 325 Mg/10.15 Ml Oral Liqd Unit Dose FEEDTUBE 650 mg Q6H PRN Administration Pain 1 -3, fever >100.5 Albuterol 2.5 mg 05/26/21 18:34 Albuterol 2.5 Mg/3 Ml Nebu IH Q3HRT PRN Shortness Of Breath Amlodipine Besylate 5 mg 06/03/21 10:00 06/06/21 10:21 Amlodipine 5 Mg Tab PO Not Given QDAY ONDINA Lipase/Protease/Amylase 1 each 05/28/21 08:24 06/06/21 05:10 Lipase 10,500/Protease 25,000/Amylase 43,750 (Units) Dr De Leon FEEDTUBE 1 each PRN PRN Administration For Clogged Feeding Tube Aspirin 325 mg 06/04/21 10:00 06/06/21 10:21 Aspirin Ec 325 Mg Tab PO Not Given QDAY ONDINA Atorvastatin Calcium 40 mg 06/03/21 22:00 06/05/21 22:29 Atorvastatin 40 Mg Tab PO 40 mg QHS ONDINA Administration Famotidine 20 mg 05/28/21 10:00 06/06/21 10:22 Famotidine 20 Mg Tab PO Not Given DAILY ONDINA Finasteride 5 mg 06/03/21 10:00 06/06/21 10:22 Finasteride 5 Mg Tab PO Not Given QDAY ONDINA Heparin Sodium (Porcine) 5,000 unit 05/26/21 22:00 06/06/21 10:22 Heparin 5,000 Unit/1 Ml Vial SUB-Q Not Given Q12HR ONDINA Hydrophilic Ointment 1 applic 05/26/21 17:02 Lip Therapy Vaseline TP Q2HR PRN Dry Lips Propofol 1,000 mg in 100 mls @ 1.361 mls/hr 05/30/21 06:00 05/31/21 08:50 Diprivan 10 Mg/Ml IV 0 mcg/kg/min TITR ONDINA 0 mls/hr Titration Protocol 5 MCG/KG/MIN Multi-Ingred Cream/Lotion/Oil/Oint 1 applic 05/26/21 17:02 Mineral Oil/Petrolatum, White Ophth Oint 3.5 Gm OU Q4HR PRN Dry Eye(s) Senna/Docusate Sodium 1 tab 05/26/21 22:00 06/06/21 10:22 Sennosides/Docusate Sodium 8.6/50 Mg Tab FEEDTUBE Not Given BID ONDINA Simple Syrup 15 ml 05/28/21 08:24 Simple Syrup 15 Ml FEEDTUBE PRN PRN Hypoglycemia Simple Syrup 30 ml 05/28/21 08:24 Simple Syrup 15 Ml FEEDTUBE PRN PRN Hypoglycemia Sodium Bicarbonate 325 mg 05/28/21 08:24 06/06/21 05:10 Sodium Bicarbonate 325 Mg Tab FEEDTUBE 325 mg PRN PRN Administration For Clogged Feeding Tube Sodium Chloride 10 ml 05/26/21 22:00 06/06/21 10:23 Sodium Chloride 0.9% 10 Ml Flush Syringe IV 10 ml BID ONDINA Administration Sodium Chloride 10 ml 05/26/21 18:34 Sodium Chloride 0.9% 10 Ml Flush Syringe IV PRN PRN LINE FLUSH Tamsulosin HCl 0.8 mg 05/29/21 12:00 06/06/21 10:22 Tamsulosin 0.4 Mg Cap PO Not Given QDAY ONDINA Nutrition/Malnutrition Assess - Dietary Evaluation Nutrition/Malnutrition Findings: Nutrition Notes Start: 05/27/21 08:35 Freq: Status: Active Protocol: Document 06/04/21 10:42 (Rec: 06/04/21 10:43 [email or web address]) Nutrition Notes Initial or Follow up Reassessment Current Diagnosis Acute Kidney Injury,Sepsis, Hypertension,Respiratory Failure Other Pertinent Diagnosis UTI, encephalopathy, dehydration, COVID PUI Current Diet Glucerna 1.2 at 45 ml/hr Labs/Tests 06/03: Ca 6.8 Pertinent Medications Calcium carbonate Height 5 ft 2 in Weight 45.359 kg [place] Body Weight (kg) 53.63 BMI 18.3 Weight Status Underweight Subjective/Other Information FU for TF tolerance. Pt tolerating TF at goal rate. Pt had BM yesterday. Percent of energy/protein needs met: 100%/100% Burn Absent Trauma Absent Current % PO Negligible Minimum of two criteria No physical signs of malnutrition #1 Nutrition Diagnosis Inadequate oral intake Diagnosis Progress(for reassessment Continues documentation) Is patient on ventilator? Yes Is Patient Ambulatory and/or Out of Bed No REE-([facility]-confined to bed) 1258.548 Calculation Used for Recommendations [facility] Additional Notes Protein: (1.2-2g/kg) 54-91g Fluid: 1 ml/kcal or per MD Nutrition Intervention Change Diet Order: Continue Nutrition Support: Glucerna 1.2 at 45 ml/hr Flush 75 ml q4h. Kcal 1,296 Protein (gm) 65 Fluid (mL) 869 Goal #1 Meet at least 75% of protein and energy needs via TF Anticipated Discharge Needs: Unable to determine at this time Follow-Up By: 06/11/21 Additional Comments FU for TF tolerance
[2021-06-06] MEDS: ACETAMINOPHEN 325 MG/10.15 ML ORAL LIQD UNIT DOSE FEEDTUBE PRN (05:02)
--- NOTE | 2021-06-06 10:06 | XRay Report ---
CHEST 1 VIEW 06/06/2021 8:59 AM INDICATION / CLINICAL INFORMATION: febrile. COMPARISON: 06/03/2021 FINDINGS: SUPPORT DEVICES: Stable, satisfactory device positioning. HEART / MEDIASTINUM: No significant abnormality. LUNGS / PLEURA: No significant pulmonary or pleural abnormality. No pneumothorax. ADDITIONAL FINDINGS: No significant additional findings. IMPRESSION: 1. No acute findings. Signer Name: Eddie Vicente MD Signed: 06/06/2021 10:02 AM Workstation Name: [email or web address]
[2021-06-06] MEDS: ASPIRIN EC 325 MG TAB PO SCH (10:21)
[2021-06-06] MEDS: amLODIPine 5 MG TAB PO SCH (10:21)
[2021-06-06] MEDS: HEPARIN 5,000 UNIT/1 ML VIAL SUB-Q SCH ×2 (10:22→22:09)
[2021-06-06] MEDS: FINASTERIDE 5 MG TAB PO SCH (10:22)
[2021-06-06] MEDS: FAMOTIDINE 20 MG TAB PO SCH (10:22)
[2021-06-06] MEDS: SENNOSIDES/DOCUSATE SODIUM 8.6/50 MG TAB FEEDTUBE SCH ×2 (10:22→22:10)
[2021-06-06] MEDS: TAMSULOSIN 0.4 MG CAP PO SCH (10:22)
[2021-06-06 12:07] LABS: Bilirubin,Urine NEG (Negative); Blood,Urine SM (Negative); Color,Urine Yellow (Yellow); Mucus,Urine FEW /HPF; Protein,Urine <15 mg/dL mg/dL (Negative); Urobilinogen,Urine < 2.0 mg/dL (<2.0)
[2021-06-06 12:12] LABS: WBC,Urine < 1.0 /HPF (0.0-6.0)
--- NOTE | 2021-06-06 12:18 | Progress Note ---
Assessment and Plan Acute hypoxemic respiratory failure on MVS Bilateral pneumonia (CAP) Acute toxic metabolic encephalopathy Severe sepsis Acute kidney injury Hypertensive urgency Elevated serum D-dimer Adult failure to thrive Mild metabolic acidosis Hyperchloremia Lactic acidosis Elevated serum inflammatory markers to include ferritin, D-dimers, and LDH PUI COVID-19 infection - for trach & PEG today - EEG without signs of seizure activity - 2D ECHO was normal - LTAC evaluation ongoing - continue care as below otherwise; - continue to wean supplemental oxygen for target O2 sat's > 90% acutely - VAP bundle addressed - continue lung protective strategies - continue Daily SAT and SBT assessment as tolerated - continue bronchodilators with pulmonary hygiene per RT - wean per pulmonary driven protocols otherwise - continue accuchecks with glycemic control per SSI (While critically ill target blood glucose of 140-180 mg/dL; avoid hypoglycemia) - sedation prn for target RASS 0 to -1 - avoid nephrotoxins, renally dose all medications - continue to avoid benzodiazepine's, reduce the possibility of delirium - complete AB's per ID rec's - prn analgesia per CPOT score - Maintenance of sleep-wake cycle, avoid delirium - continue enteral nutritional support at goal rate as tolerated - G.I. & VTE prophylaxis - PT/OT/ROM exercises - continue mobility protocols for pressure ulcer prophylaxis - Monitor hemodynamics closely - continue other care per attending / other consultants - discharge planning ongoing concurrently COVID SPECIFIC INTERVENTIONS - COVID-19 PCR negative .... Re-evaluate in am & prn CONDITION: CRITICAL PROGNOSIS: GUARDED CODE STATUS: FULL CODE The high probability of a clinically significant, sudden or life-threatening deterioration of the [respiratory, cardiovascular, renal & neurologic] system(s) required my full and direct attention, intervention and personal management. The aggregate critical care time was [32] minutes without overlap. Time includes spent on; [x] Data Review and interpretation [x] Patient assessment and monitoring of vital signs [x] Documentation [x] Medication orders and management Subjective Date of service: 06/06/21 Principal diagnosis: Ac. hypoxemic resp failure; CAP; Ac. encephalopathy; SIXTO; Sepsis; PUI COVID Interval history: Patient is seen today for: Ac. hypoxemic resp failure; CAP; Acute encephalopathy; SIXTO; Severe sepsis; PUI COVID-19 infection Seen and examined at bedside; 24hour events reviewed; nursing and respiratory ca re staff consulted; no adverse overnight events reported to me; resting in bed; remains on MVS; tentatively for tracheostomy today; on SBT and tolerating well; no new issues otherwise today Objective Vital Signs - 12hr 06/06/21 06/06/21 06/06/21 00:30 01:00 02:00 Temperature Pulse Rate 87 92 H 88 Pulse Rate [ From Monitor] Respiratory 22 21 Rate Blood Pressure 146/59 137/64 147/64 O2 Sat by Pulse 100 100 100 Oximetry 06/06/21 06/06/21 06/06/21 03:00 03:31 04:00 Temperature 102.2 F H Pulse Rate 91 H 94 H Pulse Rate [ 94 H From Monitor] Respiratory 25 H 24 Rate Blood Pressure 148/64 148/67 O2 Sat by Pulse 100 100 Oximetry 06/06/21 06/06/21 06/06/21 04:12 05:00 06:00 Temperature Pulse Rate 86 93 H 91 H Pulse Rate [ From Monitor] Respiratory 21 16 Rate Blood Pressure 148/67 148/62 139/65 O2 Sat by Pulse 100 100 100 Oximetry 06/06/21 06/06/21 06/06/21 07:00 08:00 08:10 Temperature Pulse Rate 88 85 96 H Pulse Rate [ From Monitor] Respiratory 22 16 Rate Blood Pressure 150/64 153/70 153/70 O2 Sat by Pulse 100 100 100 Oximetry 06/06/21 06/06/21 06/06/21 09:00 09:45 10:00 Temperature Pulse Rate 96 H 94 H 102 H Pulse Rate [ From Monitor] Respiratory 21 32 H 32 H Rate Blood Pressure 157/68 171/77 171/77 O2 Sat by Pulse 100 100 100 Oximetry 06/06/21 06/06/21 11:00 11:15 Temperature Pulse Rate 85 80 Pulse Rate [ From Monitor] Respiratory 29 H 24 Rate Blood Pressure 135/67 135/67 O2 Sat by Pulse 100 100 Oximetry Constitutional: no acute distress, other (orally intuabted to MVS, no dys- synchrony, ETT (7.5) 23 cm at the lip) Eyes: non-icteric ENT: oropharynx moist Neck: supple, no lymphadenopathy, no JVD Effort: normal Ascultation: Bilateral: diminished breath sounds, rhonchi (scant) Percussion: Bilateral: not dull Cardiovascular: regular rate and rhythm, other (S1,S2) Gastrointestinal: normoactive bowel sounds, soft, non-tender, non-distended Integumentary: normal Extremities: no cyanosis, no edema, pulses normal, no ischemia or petechiae Neurologic: pupils equal and round, other (encephalopathic) Psychiatric: other (unable to assess) CBC and BMP: 06/06/21 20:07 06/06/21 20:07 ABG, PT/INR, D-dimer: ABG ABG pH 7.555 (7.320-7.450) H 06/01/21 04:00 POC ABG pCO2 27.6 mmHg (32.0-48.0) L 06/01/21 04:00 POC ABG pO2 65.6 mmHg (83-108) L 06/01/21 04:00 POC ABG HCO3 23.9 06/01/21 04:00 ABG O2 Saturation 94.5 (0-100) 06/01/21 04:00 PT/INR, D-dimer PT 14.0 Sec. (12.2-14.9) 06/02/21 16:57 INR 1.03 (0.87-1.13) 06/02/21 16:57 D-Dimer 8255.81 ng/mlDDU (0-234) H 05/26/21 17:08 Abnormal lab findings: Abnormal Labs 05/26/21 05/26/21 05/26/21 17:08 17:08 17:08 WBC RBC Hgb Hct MCV MCH MCHC 31 L RDW 16.2 H Plt Count 80 L Seg Neuts % (Manual) Lymphocytes % (Manual) Seg Neutrophils # Man Lymphocytes # (Manual) Monocytes # (Manual) APTT 42.4 H D-Dimer 8255.81 H ABG pH POC ABG pCO2 POC ABG pO2 ABG Hemoglobin ABG Oxyhemoglobin ABG Sodium ABG Chloride ABG Glucose Carboxyhemoglobin Sodium 180 H* Potassium Chloride 140 H Carbon Dioxide 21 L BUN 118 H Creatinine 5.4 H Glucose 133 H POC Glucose Lactic Acid Calcium 8.1 L Phosphorus Magnesium Ferritin AST 97 H ALT 71 H Alkaline Phosphatase 138 H Lactate Dehydrogenase 550 H Troponin T 0.038 H C-Reactive Protein 4.20 H Albumin 3.3 L Triglycerides 150 H HDL Cholesterol 24 L Arterial Blood Glucose Arterial Blood Ionized Calcium Urine WBC (Auto) Urine Creatinine Salicylates Acetaminophen 05/26/21 05/26/21 05/26/21 17:08 17:08 17:08 WBC RBC Hgb Hct MCV MCH MCHC RDW Plt Count Seg Neuts % (Manual) Lymphocytes % (Manual) Seg Neutrophils # Man Lymphocytes # (Manual) Monocytes # (Manual) APTT D-Dimer ABG pH POC ABG pCO2 POC ABG pO2 ABG Hemoglobin ABG Oxyhemoglobin ABG Sodium ABG Chloride ABG Glucose Carboxyhemoglobin Sodium Potassium Chloride Carbon Dioxide BUN Creatinine Glucose POC Glucose Lactic Acid 3.90 H* Calcium Phosphorus Magnesium Ferritin 598.3 H AST ALT Alkaline Phosphatase Lactate Dehydrogenase Troponin T C-Reactive Protein Albumin Triglycerides HDL Cholesterol Arterial Blood Glucose Arterial Blood Ionized Calcium Urine WBC (Auto) Urine Creatinine Salicylates Acetaminophen < 5.0 L 05/26/21 05/26/21 05/26/21 17:08 17:27 23:28 WBC RBC Hgb Hct MCV MCH MCHC RDW Plt Count Seg Neuts % (Manual) Lymphocytes % (Manual) Seg Neutrophils # Man Lymphocytes # (Manual) Monocytes # (Manual) APTT D-Dimer ABG pH POC ABG pCO2 POC ABG pO2 453.5 H ABG Hemoglobin 11.5 L ABG Oxyhemoglobin 98.7 H ABG Sodium 198.2 H ABG Chloride ABG Glucose 116 H Carboxyhemoglobin 0.3 L Sodium Potassium Chloride Carbon Dioxide BUN Creatinine Glucose POC Glucose 182 H Lactic Acid Calcium Phosphorus Magnesium Ferritin AST ALT Alkaline Phosphatase Lactate Dehydrogenase Troponin T C-Reactive Protein Albumin Triglycerides HDL Cholesterol Arterial Blood Glucose 116 H Arterial Blood Ionized Calcium Urine WBC (Auto) Urine Creatinine Salicylates < 0.3 L Acetaminophen 05/26/21 05/26/21 05/27/21 Unknown Unknown 01:58 WBC RBC Hgb Hct MCV MCH MCHC RDW Plt Count Seg Neuts % (Manual) Lymphocytes % (Manual) Seg Neutrophils # Man Lymphocytes # (Manual) Monocytes # (Manual) APTT D-Dimer ABG pH POC ABG pCO2 POC ABG pO2 ABG Hemoglobin ABG Oxyhemoglobin ABG Sodium ABG Chloride ABG Glucose Carboxyhemoglobin Sodium Potassium Chloride Carbon Dioxide BUN Creatinine Glucose POC Glucose Lactic Acid 2.90 H* Calcium Phosphorus Magnesium Ferritin AST ALT Alkaline Phosphatase Lactate Dehydrogenase Troponin T C-Reactive Protein Albumin Triglycerides HDL Cholesterol Arterial Blood Glucose Arterial Blood Ionized Calcium Urine WBC (Auto) 16.0 H Urine Creatinine 51.6 H Salicylates Acetaminophen 05/27/21 05/27/21 05/27/21 02:00 02:00 03:19 WBC 27.1 H RBC Hgb 11.1 L Hct MCV MCH 27 L MCHC 31 L RDW 16.1 H Plt Count 62 L Seg Neuts % (Manual) 93.0 H Lymphocytes % (Manual) 3.0 L Seg Neutrophils # Man 25.2 H Lymphocytes # (Manual) 0.8 L Monocytes # (Manual) 1.1 H APTT D-Dimer ABG pH POC ABG pCO2 31.7 L POC ABG pO2 79.5 L ABG Hemoglobin 10.9 L ABG Oxyhemoglobin ABG Sodium 181.4 H ABG Chloride ABG Glucose 276 H Carboxyhemoglobin 0.1 L Sodium 180 H* Potassium Chloride 140 H Carbon Dioxide 19 L BUN 100 H Creatinine 4.3 H Glucose 272 H POC Glucose Lactic Acid Calcium 7.0 L Phosphorus 5.00 H Magnesium Ferritin AST 66 H ALT 64 H Alkaline Phosphatase Lactate Dehydrogenase Troponin T C-Reactive Protein Albumin 2.9 L Triglycerides HDL Cholesterol Arterial Blood Glucose 276 H Arterial Blood Ionized Calcium 4.1 L Urine WBC (Auto) Urine Creatinine Salicylates Acetaminophen 05/27/21 05/27/21 05/27/21 08:22 08:22 12:08 WBC RBC Hgb Hct MCV MCH MCHC RDW Plt Count Seg Neuts % (Manual) Lymphocytes % (Manual) Seg Neutrophils # Man Lymphocytes # (Manual) Monocytes # (Manual) APTT D-Dimer ABG pH POC ABG pCO2 POC ABG pO2 ABG Hemoglobin ABG Oxyhemoglobin ABG Sodium ABG Chloride ABG Glucose Carboxyhemoglobin Sodium 179 H* Potassium Chloride > 139 H Carbon Dioxide 21 L 19 L BUN 103 H 105 H Creatinine 4.2 H 4.2 H Glucose 271 H 217 H POC Glucose Lactic Acid 2.20 H* Calcium 7.3 L 7.0 L Phosphorus Magnesium Ferritin AST ALT Alkaline Phosphatase Lactate Dehydrogenase Troponin T C-Reactive Protein Albumin Triglycerides HDL Cholesterol Arterial Blood Glucose Arterial Blood Ionized Calcium Urine WBC (Auto) Urine Creatinine Salicylates Acetaminophen 05/27/21 05/27/21 05/27/21 12:14 18:03 23:15 WBC RBC Hgb Hct MCV MCH MCHC RDW Plt Count Seg Neuts % (Manual) Lymphocytes % (Manual) Seg Neutrophils # Man Lymphocytes # (Manual) Monocytes # (Manual) APTT D-Dimer ABG pH POC ABG pCO2 POC ABG pO2 ABG Hemoglobin ABG Oxyhemoglobin ABG Sodium ABG Chloride ABG Glucose Carboxyhemoglobin Sodium Potassium Chloride Carbon Dioxide BUN Creatinine Glucose POC Glucose 184 H 183 H 191 H Lactic Acid Calcium Phosphorus Magnesium Ferritin AST ALT Alkaline Phosphatase Lactate Dehydrogenase Troponin T C-Reactive Protein Albumin Triglycerides HDL Cholesterol Arterial Blood Glucose Arterial Blood Ionized Calcium Urine WBC (Auto) Urine Creatinine Salicylates Acetaminophen 05/28/21 05/28/21 05/28/21 03:19 05:15 08:47 WBC RBC Hgb Hct MCV MCH MCHC RDW Plt Count Seg Neuts % (Manual) Lymphocytes % (Manual) Seg Neutrophils # Man Lymphocytes # (Manual) Monocytes # (Manual) APTT D-Dimer ABG pH POC ABG pCO2 29.6 L POC ABG pO2 115.2 H ABG Hemoglobin 10.2 L ABG Oxyhemoglobin ABG Sodium 153.6 H ABG Chloride 129.0 H ABG Glucose 215 H Carboxyhemoglobin 0.3 L Sodium 159 H D Potassium Chloride 123.7 H Carbon Dioxide 20 L BUN 88 H Creatinine 2.9 H Glucose 177 H POC Glucose 184 H Lactic Acid Calcium 6.3 L Phosphorus Magnesium Ferritin AST ALT Alkaline Phosphatase Lactate Dehydrogenase Troponin T C-Reactive Protein Albumin Triglycerides HDL Cholesterol Arterial Blood Glucose 215 H Arterial Blood Ionized Calcium 3.7 L Urine WBC (Auto) Urine Creatinine Salicylates Acetaminophen 05/28/21 05/28/21 05/28/21 11:50 16:27 17:23 WBC RBC Hgb Hct MCV MCH MCHC RDW Plt Count Seg Neuts % (Manual) Lymphocytes % (Manual) Seg Neutrophils # Man Lymphocytes # (Manual) Monocytes # (Manual) APTT D-Dimer ABG pH POC ABG pCO2 POC ABG pO2 ABG Hemoglobin ABG Oxyhemoglobin ABG Sodium ABG Chloride ABG Glucose Carboxyhemoglobin Sodium 154 H Potassium Chloride Carbon Dioxide BUN Creatinine Glucose POC Glucose 130 H 113 H Lactic Acid Calcium Phosphorus Magnesium Ferritin AST ALT Alkaline Phosphatase Lactate Dehydrogenase Troponin T C-Reactive Protein Albumin Triglycerides HDL Cholesterol Arterial Blood Glucose Arterial Blood Ionized Calcium Urine WBC (Auto) Urine Creatinine Salicylates Acetaminophen 05/28/21 05/29/21 05/29/21 23:28 02:59 04:15 WBC RBC Hgb Hct MCV MCH MCHC RDW Plt Count Seg Neuts % (Manual) Lymphocytes % (Manual) Seg Neutrophils # Man Lymphocytes # (Manual) Monocytes # (Manual) APTT D-Dimer ABG pH 7.481 H POC ABG pCO2 24.6 L POC ABG pO2 ABG Hemoglobin 10.6 L ABG Oxyhemoglobin ABG Sodium 149.5 H ABG Chloride 122.0 H ABG Glucose 129 H Carboxyhemoglobin 0.3 L Sodium 159 H Potassium Chloride 124.0 H Carbon Dioxide 21 L BUN 88 H Creatinine 2.4 H Glucose 136 H POC Glucose 139 H Lactic Acid Calcium 6.8 L Phosphorus Magnesium Ferritin AST ALT Alkaline Phosphatase Lactate Dehydrogenase Troponin T C-Reactive Protein Albumin Triglycerides HDL Cholesterol Arterial Blood Glucose 129 H Arterial Blood Ionized Calcium 3.8 L Urine WBC (Auto) Urine Creatinine Salicylates Acetaminophen 05/29/21 05/29/21 05/29/21 05:13 15:35 18:05 WBC RBC Hgb Hct MCV MCH MCHC RDW Plt Count Seg Neuts % (Manual) Lymphocytes % (Manual) Seg Neutrophils # Man Lymphocytes # (Manual) Monocytes # (Manual) APTT D-Dimer ABG pH POC ABG pCO2 POC ABG pO2 ABG Hemoglobin ABG Oxyhemoglobin ABG Sodium ABG Chloride ABG Glucose Carboxyhemoglobin Sodium 160 H Potassium Chloride 124.8 H Carbon Dioxide 20 L BUN 83 H Creatinine 1.9 H Glucose 147 H POC Glucose 138 H 141 H Lactic Acid Calcium 7.1 L Phosphorus Magnesium Ferritin AST ALT Alkaline Phosphatase Lactate Dehydrogenase Troponin T C-Reactive Protein Albumin Triglycerides HDL Cholesterol Arterial Blood Glucose Arterial Blood Ionized Calcium Urine WBC (Auto) Urine Creatinine Salicylates Acetaminophen 05/29/21 05/30/21 05/30/21 23:22 01:20 04:33 WBC RBC Hgb Hct MCV MCH MCHC RDW Plt Count Seg Neuts % (Manual) Lymphocytes % (Manual) Seg Neutrophils # Man Lymphocytes # (Manual) Monocytes # (Manual) APTT D-Dimer ABG pH 7.484 H POC ABG pCO2 24.6 L POC ABG pO2 131.2 H ABG Hemoglobin 11.7 L ABG Oxyhemoglobin 98.1 H ABG Sodium 155.7 H ABG Chloride 126.0 H ABG Glucose 191 H Carboxyhemoglobin 0.1 L Sodium 162 H* Potassium Chloride 129.0 H Carbon Dioxide 19 L BUN 89 H Creatinine 2.1 H Glucose 190 H POC Glucose 160 H Lactic Acid Calcium 7.4 L Phosphorus Magnesium Ferritin AST ALT Alkaline Phosphatase Lactate Dehydrogenase Troponin T C-Reactive Protein Albumin Triglycerides HDL Cholesterol Arterial Blood Glucose 191 H Arterial Blood Ionized Calcium 4.1 L Urine WBC (Auto) Urine Creatinine Salicylates Acetaminophen 05/30/21 05/30/21 05/30/21 05:21 15:25 17:59 WBC RBC Hgb Hct MCV MCH MCHC RDW Plt Count Seg Neuts % (Manual) Lymphocytes % (Manual) Seg Neutrophils # Man Lymphocytes # (Manual) Monocytes # (Manual) APTT D-Dimer ABG pH POC ABG pCO2 POC ABG pO2 ABG Hemoglobin ABG Oxyhemoglobin ABG Sodium ABG Chloride ABG Glucose Carboxyhemoglobin Sodium 161 H* Potassium 3.4 L Chloride 131.7 H Carbon Dioxide 18 L BUN 77 H Creatinine 1.5 H Glucose 200 H POC Glucose 169 H 147 H Lactic Acid Calcium 7.2 L Phosphorus Magnesium Ferritin AST ALT Alkaline Phosphatase Lactate Dehydrogenase Troponin T C-Reactive Protein Albumin Triglycerides HDL Cholesterol Arterial Blood Glucose Arterial Blood Ionized Calcium Urine WBC (Auto) Urine Creatinine Salicylates Acetaminophen 05/30/21 05/31/21 05/31/21 23:34 04:33 05:29 WBC RBC Hgb Hct MCV MCH MCHC RDW Plt Count Seg Neuts % (Manual) Lymphocytes % (Manual) Seg Neutrophils # Man Lymphocytes # (Manual) Monocytes # (Manual) APTT D-Dimer ABG pH POC ABG pCO2 POC ABG pO2 ABG Hemoglobin ABG Oxyhemoglobin ABG Sodium ABG Chloride ABG Glucose Carboxyhemoglobin Sodium 154 H Potassium Chloride 123.6 H Carbon Dioxide 19 L BUN 52 H Creatinine Glucose 139 H POC Glucose 153 H 132 H Lactic Acid Calcium 7.1 L Phosphorus 2.30 L Magnesium Ferritin AST ALT Alkaline Phosphatase Lactate Dehydrogenase Troponin T C-Reactive Protein Albumin Triglycerides HDL Cholesterol Arterial Blood Glucose Arterial Blood Ionized Calcium Urine WBC (Auto) Urine Creatinine Salicylates Acetaminophen 05/31/21 05/31/21 05/31/21 11:47 15:23 17:18 WBC RBC Hgb Hct MCV MCH MCHC RDW Plt Count Seg Neuts % (Manual) Lymphocytes % (Manual) Seg Neutrophils # Man Lymphocytes # (Manual) Monocytes # (Manual) APTT D-Dimer ABG pH POC ABG pCO2 POC ABG pO2 ABG Hemoglobin ABG Oxyhemoglobin ABG Sodium ABG Chloride ABG Glucose Carboxyhemoglobin Sodium 149 H Potassium 3.4 L D Chloride 117.7 H Carbon Dioxide 21 L BUN 40 H Creatinine Glucose 139 H POC Glucose 114 H 108 H Lactic Acid Calcium 7.0 L Phosphorus Magnesium Ferritin AST ALT Alkaline Phosphatase Lactate Dehydrogenase Troponin T C-Reactive Protein Albumin Triglycerides HDL Cholesterol Arterial Blood Glucose Arterial Blood Ionized Calcium Urine WBC (Auto) Urine Creatinine Salicylates Acetaminophen 05/31/21 06/01/21 06/01/21 23:13 04:00 05:50 WBC RBC Hgb Hct MCV MCH MCHC RDW Plt Count Seg Neuts % (Manual) Lymphocytes % (Manual) Seg Neutrophils # Man Lymphocytes # (Manual) Monocytes # (Manual) APTT D-Dimer ABG pH 7.555 H POC ABG pCO2 27.6 L POC ABG pO2 65.6 L ABG Hemoglobin 9.2 L ABG Oxyhemoglobin ABG Sodium ABG Chloride 111.0 H ABG Glucose 143 H Carboxyhemoglobin 0.1 L Sodium Potassium Chloride Carbon Dioxide BUN Creatinine Glucose POC Glucose 126 H 121 H Lactic Acid Calcium Phosphorus Magnesium Ferritin AST ALT Alkaline Phosphatase Lactate Dehydrogenase Troponin T C-Reactive Protein Albumin Triglycerides HDL Cholesterol Arterial Blood Glucose 143 H Arterial Blood Ionized Calcium 3.7 L Urine WBC (Auto) Urine Creatinine Salicylates Acetaminophen 06/01/21 06/01/21 06/01/21 10:10 10:10 11:35 WBC 17.6 H RBC Hgb Hct MCV MCH 27 L MCHC RDW Plt Count 105 L Seg Neuts % (Manual) Lymphocytes % (Manual) Seg Neutrophils # Man Lymphocytes # (Manual) Monocytes # (Manual) APTT D-Dimer ABG pH POC ABG pCO2 POC ABG pO2 ABG Hemoglobin ABG Oxyhemoglobin ABG Sodium ABG Chloride ABG Glucose Carboxyhemoglobin Sodium Potassium 3.5 L Chloride Carbon Dioxide BUN 30 H Creatinine Glucose 137 H POC Glucose 112 H Lactic Acid Calcium 7.1 L Phosphorus 1.80 L D Magnesium 1.40 L Ferritin AST ALT Alkaline Phosphatase Lactate Dehydrogenase Troponin T C-Reactive Protein Albumin Triglycerides HDL Cholesterol Arterial Blood Glucose Arterial Blood Ionized Calcium Urine WBC (Auto) Urine Creatinine Salicylates Acetaminophen 06/01/21 06/02/21 06/02/21 17:41 05:24 09:50 WBC 17.1 H RBC 3.14 L Hgb 8.5 L D Hct 25.6 L D MCV 82 L MCH 27 L MCHC RDW Plt Count 124 L Seg Neuts % (Manual) Lymphocytes % (Manual) Seg Neutrophils # Man Lymphocytes # (Manual) Monocytes # (Manual) APTT D-Dimer ABG pH POC ABG pCO2 POC ABG pO2 ABG Hemoglobin ABG Oxyhemoglobin ABG Sodium ABG Chloride ABG Glucose Carboxyhemoglobin Sodium Potassium Chloride 108.1 H Carbon Dioxide BUN 31 H Creatinine 0.7 L Glucose 128 H POC Glucose 125 H Lactic Acid Calcium 6.1 L Phosphorus Magnesium Ferritin AST ALT Alkaline Phosphatase Lactate Dehydrogenase Troponin T C-Reactive Protein Albumin Triglycerides HDL Cholesterol Arterial Blood Glucose Arterial Blood Ionized Calcium Urine WBC (Auto) Urine Creatinine Salicylates Acetaminophen 06/02/21 06/03/21 06/03/21 18:43 00:25 05:43 WBC RBC Hgb Hct MCV MCH MCHC RDW Plt Count Seg Neuts % (Manual) Lymphocytes % (Manual) Seg Neutrophils # Man Lymphocytes # (Manual) Monocytes # (Manual) APTT D-Dimer ABG pH POC ABG pCO2 POC ABG pO2 ABG Hemoglobin ABG Oxyhemoglobin ABG Sodium ABG Chloride ABG Glucose Carboxyhemoglobin Sodium Potassium Chloride Carbon Dioxide BUN Creatinine Glucose POC Glucose 111 H 124 H 127 H Lactic Acid Calcium Phosphorus Magnesium Ferritin AST ALT Alkaline Phosphatase Lactate Dehydrogenase Troponin T C-Reactive Protein Albumin Triglycerides HDL Cholesterol Arterial Blood Glucose Arterial Blood Ionized Calcium Urine WBC (Auto) Urine Creatinine Salicylates Acetaminophen 06/03/21 06/03/21 06/03/21 06:20 06:20 17:46 WBC 19.4 H RBC 3.24 L Hgb 8.7 L Hct 26.7 L MCV 82 L MCH 27 L MCHC RDW Plt Count Seg Neuts % (Manual) Lymphocytes % (Manual) Seg Neutrophils # Man Lymphocytes # (Manual) Monocytes # (Manual) APTT D-Dimer ABG pH POC ABG pCO2 POC ABG pO2 ABG Hemoglobin ABG Oxyhemoglobin ABG Sodium ABG Chloride ABG Glucose Carboxyhemoglobin Sodium Potassium Chloride 108.1 H Carbon Dioxide BUN 31 H Creatinine 0.6 L Glucose 126 H POC Glucose 125 H Lactic Acid Calcium 6.8 L Phosphorus Magnesium Ferritin AST ALT Alkaline Phosphatase Lactate Dehydrogenase Troponin T C-Reactive Protein Albumin Triglycerides HDL Cholesterol Arterial Blood Glucose Arterial Blood Ionized Calcium Urine WBC (Auto) Urine Creatinine Salicylates Acetaminophen 06/03/21 06/04/21 06/04/21 23:27 17:29 23:11 WBC RBC Hgb Hct MCV MCH MCHC RDW Plt Count Seg Neuts % (Manual) Lymphocytes % (Manual) Seg Neutrophils # Man Lymphocytes # (Manual) Monocytes # (Manual) APTT D-Dimer ABG pH POC ABG pCO2 POC ABG pO2 ABG Hemoglobin ABG Oxyhemoglobin ABG Sodium ABG Chloride ABG Glucose Carboxyhemoglobin Sodium Potassium Chloride Carbon Dioxide BUN Creatinine Glucose POC Glucose 125 H 116 H 126 H Lactic Acid Calcium Phosphorus Magnesium Ferritin AST ALT Alkaline Phosphatase Lactate Dehydrogenase Troponin T C-Reactive Protein Albumin Triglycerides HDL Cholesterol Arterial Blood Glucose Arterial Blood Ionized Calcium Urine WBC (Auto) Urine Creatinine Salicylates Acetaminophen 06/05/21 06/05/21 06/05/21 02:03 04:59 05:07 WBC RBC Hgb Hct MCV MCH MCHC RDW Plt Count Seg Neuts % (Manual) Lymphocytes % (Manual) Seg Neutrophils # Man Lymphocytes # (Manual) Monocytes # (Manual) APTT D-Dimer ABG pH POC ABG pCO2 POC ABG pO2 ABG Hemoglobin ABG Oxyhemoglobin ABG Sodium ABG Chloride ABG Glucose Carboxyhemoglobin Sodium 150 H Potassium Chloride 112.0 H Carbon Dioxide BUN 36 H Creatinine 0.6 L Glucose 113 H POC Glucose 119 H 110 H Lactic Acid Calcium 7.9 L D Phosphorus Magnesium Ferritin AST ALT Alkaline Phosphatase Lactate Dehydrogenase Troponin T C-Reactive Protein Albumin Triglycerides HDL Cholesterol Arterial Blood Glucose Arterial Blood Ionized Calcium Urine WBC (Auto) Urine Creatinine Salicylates Acetaminophen 06/05/21 06/05/21 06/05/21 09:41 14:01 23:29 WBC 21.2 H RBC 2.83 L Hgb 7.7 L Hct 23.5 L MCV 83 L MCH 27 L MCHC RDW Plt Count Seg Neuts % (Manual) Lymphocytes % (Manual) Seg Neutrophils # Man Lymphocytes # (Manual) Monocytes # (Manual) APTT D-Dimer ABG pH POC ABG pCO2 POC ABG pO2 ABG Hemoglobin ABG Oxyhemoglobin ABG Sodium ABG Chloride ABG Glucose Carboxyhemoglobin Sodium Potassium Chloride Carbon Dioxide BUN Creatinine Glucose POC Glucose 116 H 111 H Lactic Acid Calcium Phosphorus Magnesium Ferritin AST ALT Alkaline Phosphatase Lactate Dehydrogenase Troponin T C-Reactive Protein Albumin Triglycerides HDL Cholesterol Arterial Blood Glucose Arterial Blood Ionized Calcium Urine WBC (Auto) Urine Creatinine Salicylates Acetaminophen Chest x-ray: pending Allied health notes reviewed: nursing
--- NOTE | 2021-06-06 12:27 | Progress Note ---
Assessment and Plan Assessment and Plan # Encephalopathy -81 ys old male admitted on 05/26/21 with change mentation and and pneumonia pt. 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 Wean vent as tolerated, sedation holiday, daily ABG, spontaneous breathing trial daily, daily chest x-ray. # Acute kidney injury (SIXTO) with acute tubular necrosis (ATN) -IV fluid resuscitation therapy, BMP, repeat BMP in a.m., supportive care. Nephrology team consulted -Creatinine 5.4---0.7. # Hypernatremia -IV fluid resuscitation therapy, repeat BMP, repeat BMP in a.m. nephrology team consulted -162---142 # Pneumonia -Pneumonia protocol: Chest x-ray, CBC, CMP, IV antibiotic therapy, supplemental oxygen, pulse oximetry, # UTI (urinary tract infection) -CBC, CMP, IV antibiotic therapy, blood culture. # DVT prophylaxis -SCD to bilateral lower extremities while in bed, prophylactic anticoagulation # Advance care planning -Disease education conducted, care plan discussed, diagnosis discussed, prognosis discussed, patient is full code, patient family knowledges understanding and agree with care plan as well as quarded prognosis PLAN 1-OFF sedation 2- MRI brain is noted 3-EEG is noted 4- Treat underlying infection 5- Correct electrolytes abn. 6- CTA brain and neck 7- echo 8- ASA and lipitor 9- tracheostomy and peg as per family request will follow as needed++ Over all prognosisi is quarded The high probability of a clinically significant, sudden or life threatening deterioration of the [cardiac, neuro, renal, ID, respiratory] system(s) required my full and direct attention, intervention and personal management. The aggregate critical care time was [30] minutes. [x] Data Review and interpretation [x] Patient assessment and monitoring of vital signs [x] Documentation [x] Medication orders and management Subjective Date of service: 06/06/21 Principal diagnosis: Ac. hypoxemic resp failure; CAP; Ac. encephalopathy; SIXTO; Sepsis; PUI COVID Interval history: status is unchanged he is off sedation family information is noted-he is with underlying dementia ? MRI brain is remarkable for right occipital infarct subacute , and EEG is remarkable for diffuse slowing CTA brain and neck are pending started on ASA 325 mg NJ tube and Lipitor ECHO is pending NA#150-- today not done WBCS#[id number] schadualed for tracheostomy Objective - Vital Sign Vital Signs - 12hr 06/06/21 06/06/21 06/06/21 00:30 01:00 02:00 Temperature Pulse Rate 87 92 H 88 Pulse Rate [ From Monitor] Respiratory 22 21 Rate Blood Pressure 146/59 137/64 147/64 O2 Sat by Pulse 100 100 100 Oximetry 06/06/21 06/06/21 06/06/21 03:00 03:31 04:00 Temperature 102.2 F H Pulse Rate 91 H 94 H Pulse Rate [ 94 H From Monitor] Respiratory 25 H 24 Rate Blood Pressure 148/64 148/67 O2 Sat by Pulse 100 100 Oximetry 06/06/21 06/06/21 06/06/21 04:12 05:00 06:00 Temperature Pulse Rate 86 93 H 91 H Pulse Rate [ From Monitor] Respiratory 21 16 Rate Blood Pressure 148/67 148/62 139/65 O2 Sat by Pulse 100 100 100 Oximetry 06/06/21 06/06/21 06/06/21 07:00 08:00 08:10 Temperature Pulse Rate 88 85 96 H Pulse Rate [ From Monitor] Respiratory 22 16 Rate Blood Pressure 150/64 153/70 153/70 O2 Sat by Pulse 100 100 100 Oximetry 06/06/21 06/06/21 06/06/21 09:00 09:45 10:00 Temperature Pulse Rate 96 H 94 H 102 H Pulse Rate [ From Monitor] Respiratory 21 32 H 32 H Rate Blood Pressure 157/68 171/77 171/77 O2 Sat by Pulse 100 100 100 Oximetry 06/06/21 06/06/21 11:00 11:15 Temperature Pulse Rate 85 80 Pulse Rate [ From Monitor] Respiratory 29 H 24 Rate Blood Pressure 135/67 135/67 O2 Sat by Pulse 100 100 Oximetry - General Apperance Constitutional: comfortable - EENT EENT: PERRL, mucous membranes moist - Respiratory Respiratory: chest non-tender, lungs clear, rhonchi - Cardiovascular Cardiovascular: regular rate, normal S1, normal S2 Extremities: no peripheral edema bilat, no clubbing, cyanosis - Gastrointestinal Gastrointestinal: normoactive bowel sounds - Integumentary Integumentary: normal - Neurologic Cranial nerve examination: PERRL, EOMI Detailed motor examination: other (slight withdrawal right leg , other schneider no motion ) - Laboratory Findings CBC and BMP: 06/05/21 09:41 06/05/21 04:59 Abnormal Lab Findings: Abnormal Labs 05/26/21 05/26/21 05/26/21 17:08 17:08 17:08 WBC RBC Hgb Hct MCV MCH MCHC 31 L RDW 16.2 H Plt Count 80 L Seg Neuts % (Manual) Lymphocytes % (Manual) Seg Neutrophils # Man Lymphocytes # (Manual) Monocytes # (Manual) APTT 42.4 H D-Dimer 8255.81 H ABG pH POC ABG pCO2 POC ABG pO2 ABG Hemoglobin ABG Oxyhemoglobin ABG Sodium ABG Chloride ABG Glucose Carboxyhemoglobin Sodium 180 H* Potassium Chloride 140 H Carbon Dioxide 21 L BUN 118 H Creatinine 5.4 H Glucose 133 H POC Glucose Lactic Acid Calcium 8.1 L Phosphorus Magnesium Ferritin AST 97 H ALT 71 H Alkaline Phosphatase 138 H Lactate Dehydrogenase 550 H Troponin T 0.038 H C-Reactive Protein 4.20 H Albumin 3.3 L Triglycerides 150 H HDL Cholesterol 24 L Arterial Blood Glucose Arterial Blood Ionized Calcium Urine WBC (Auto) Urine Creatinine Salicylates Acetaminophen 05/26/21 05/26/21 05/26/21 17:08 17:08 17:08 WBC RBC Hgb Hct MCV MCH MCHC RDW Plt Count Seg Neuts % (Manual) Lymphocytes % (Manual) Seg Neutrophils # Man Lymphocytes # (Manual) Monocytes # (Manual) APTT D-Dimer ABG pH POC ABG pCO2 POC ABG pO2 ABG Hemoglobin ABG Oxyhemoglobin ABG Sodium ABG Chloride ABG Glucose Carboxyhemoglobin Sodium Potassium Chloride Carbon Dioxide BUN Creatinine Glucose POC Glucose Lactic Acid 3.90 H* Calcium Phosphorus Magnesium Ferritin 598.3 H AST ALT Alkaline Phosphatase Lactate Dehydrogenase Troponin T C-Reactive Protein Albumin Triglycerides HDL Cholesterol Arterial Blood Glucose Arterial Blood Ionized Calcium Urine WBC (Auto) Urine Creatinine Salicylates Acetaminophen < 5.0 L 05/26/21 05/26/21 05/26/21 17:08 17:27 23:28 WBC RBC Hgb Hct MCV MCH MCHC RDW Plt Count Seg Neuts % (Manual) Lymphocytes % (Manual) Seg Neutrophils # Man Lymphocytes # (Manual) Monocytes # (Manual) APTT D-Dimer ABG pH POC ABG pCO2 POC ABG pO2 453.5 H ABG Hemoglobin 11.5 L ABG Oxyhemoglobin 98.7 H ABG Sodium 198.2 H ABG Chloride ABG Glucose 116 H Carboxyhemoglobin 0.3 L Sodium Potassium Chloride Carbon Dioxide BUN Creatinine Glucose POC Glucose 182 H Lactic Acid Calcium Phosphorus Magnesium Ferritin AST ALT Alkaline Phosphatase Lactate Dehydrogenase Troponin T C-Reactive Protein Albumin Triglycerides HDL Cholesterol Arterial Blood Glucose 116 H Arterial Blood Ionized Calcium Urine WBC (Auto) Urine Creatinine Salicylates < 0.3 L Acetaminophen 05/26/21 05/26/21 05/27/21 Unknown Unknown 01:58 WBC RBC Hgb Hct MCV MCH MCHC RDW Plt Count Seg Neuts % (Manual) Lymphocytes % (Manual) Seg Neutrophils # Man Lymphocytes # (Manual) Monocytes # (Manual) APTT D-Dimer ABG pH POC ABG pCO2 POC ABG pO2 ABG Hemoglobin ABG Oxyhemoglobin ABG Sodium ABG Chloride ABG Glucose Carboxyhemoglobin Sodium Potassium Chloride Carbon Dioxide BUN Creatinine Glucose POC Glucose Lactic Acid 2.90 H* Calcium Phosphorus Magnesium Ferritin AST ALT Alkaline Phosphatase Lactate Dehydrogenase Troponin T C-Reactive Protein Albumin Triglycerides HDL Cholesterol Arterial Blood Glucose Arterial Blood Ionized Calcium Urine WBC (Auto) 16.0 H Urine Creatinine 51.6 H Salicylates Acetaminophen 05/27/21 05/27/21 05/27/21 02:00 02:00 03:19 WBC 27.1 H RBC Hgb 11.1 L Hct MCV MCH 27 L MCHC 31 L RDW 16.1 H Plt Count 62 L Seg Neuts % (Manual) 93.0 H Lymphocytes % (Manual) 3.0 L Seg Neutrophils # Man 25.2 H Lymphocytes # (Manual) 0.8 L Monocytes # (Manual) 1.1 H APTT D-Dimer ABG pH POC ABG pCO2 31.7 L POC ABG pO2 79.5 L ABG Hemoglobin 10.9 L ABG Oxyhemoglobin ABG Sodium 181.4 H ABG Chloride ABG Glucose 276 H Carboxyhemoglobin 0.1 L Sodium 180 H* Potassium Chloride 140 H Carbon Dioxide 19 L BUN 100 H Creatinine 4.3 H Glucose 272 H POC Glucose Lactic Acid Calcium 7.0 L Phosphorus 5.00 H Magnesium Ferritin AST 66 H ALT 64 H Alkaline Phosphatase Lactate Dehydrogenase Troponin T C-Reactive Protein Albumin 2.9 L Triglycerides HDL Cholesterol Arterial Blood Glucose 276 H Arterial Blood Ionized Calcium 4.1 L Urine WBC (Auto) Urine Creatinine Salicylates Acetaminophen 05/27/21 05/27/21 05/27/21 08:22 08:22 12:08 WBC RBC Hgb Hct MCV MCH MCHC RDW Plt Count Seg Neuts % (Manual) Lymphocytes % (Manual) Seg Neutrophils # Man Lymphocytes # (Manual) Monocytes # (Manual) APTT D-Dimer ABG pH POC ABG pCO2 POC ABG pO2 ABG Hemoglobin ABG Oxyhemoglobin ABG Sodium ABG Chloride ABG Glucose Carboxyhemoglobin Sodium 179 H* Potassium Chloride > 139 H Carbon Dioxide 21 L 19 L BUN 103 H 105 H Creatinine 4.2 H 4.2 H Glucose 271 H 217 H POC Glucose Lactic Acid 2.20 H* Calcium 7.3 L 7.0 L Phosphorus Magnesium Ferritin AST ALT Alkaline Phosphatase Lactate Dehydrogenase Troponin T C-Reactive Protein Albumin Triglycerides HDL Cholesterol Arterial Blood Glucose Arterial Blood Ionized Calcium Urine WBC (Auto) Urine Creatinine Salicylates Acetaminophen 05/27/21 05/27/21 05/27/21 12:14 18:03 23:15 WBC RBC Hgb Hct MCV MCH MCHC RDW Plt Count Seg Neuts % (Manual) Lymphocytes % (Manual) Seg Neutrophils # Man Lymphocytes # (Manual) Monocytes # (Manual) APTT D-Dimer ABG pH POC ABG pCO2 POC ABG pO2 ABG Hemoglobin ABG Oxyhemoglobin ABG Sodium ABG Chloride ABG Glucose Carboxyhemoglobin Sodium Potassium Chloride Carbon Dioxide BUN Creatinine Glucose POC Glucose 184 H 183 H 191 H Lactic Acid Calcium Phosphorus Magnesium Ferritin AST ALT Alkaline Phosphatase Lactate Dehydrogenase Troponin T C-Reactive Protein Albumin Triglycerides HDL Cholesterol Arterial Blood Glucose Arterial Blood Ionized Calcium Urine WBC (Auto) Urine Creatinine Salicylates Acetaminophen 05/28/21 05/28/21 05/28/21 03:19 05:15 08:47 WBC RBC Hgb Hct MCV MCH MCHC RDW Plt Count Seg Neuts % (Manual) Lymphocytes % (Manual) Seg Neutrophils # Man Lymphocytes # (Manual) Monocytes # (Manual) APTT D-Dimer ABG pH POC ABG pCO2 29.6 L POC ABG pO2 115.2 H ABG Hemoglobin 10.2 L ABG Oxyhemoglobin ABG Sodium 153.6 H ABG Chloride 129.0 H ABG Glucose 215 H Carboxyhemoglobin 0.3 L Sodium 159 H D Potassium Chloride 123.7 H Carbon Dioxide 20 L BUN 88 H Creatinine 2.9 H Glucose 177 H POC Glucose 184 H Lactic Acid Calcium 6.3 L Phosphorus Magnesium Ferritin AST ALT Alkaline Phosphatase Lactate Dehydrogenase Troponin T C-Reactive Protein Albumin Triglycerides HDL Cholesterol Arterial Blood Glucose 215 H Arterial Blood Ionized Calcium 3.7 L Urine WBC (Auto) Urine Creatinine Salicylates Acetaminophen 05/28/21 05/28/21 05/28/21 11:50 16:27 17:23 WBC RBC Hgb Hct MCV MCH MCHC RDW Plt Count Seg Neuts % (Manual) Lymphocytes % (Manual) Seg Neutrophils # Man Lymphocytes # (Manual) Monocytes # (Manual) APTT D-Dimer ABG pH POC ABG pCO2 POC ABG pO2 ABG Hemoglobin ABG Oxyhemoglobin ABG Sodium ABG Chloride ABG Glucose Carboxyhemoglobin Sodium 154 H Potassium Chloride Carbon Dioxide BUN Creatinine Glucose POC Glucose 130 H 113 H Lactic Acid Calcium Phosphorus Magnesium Ferritin AST ALT Alkaline Phosphatase Lactate Dehydrogenase Troponin T C-Reactive Protein Albumin Triglycerides HDL Cholesterol Arterial Blood Glucose Arterial Blood Ionized Calcium Urine WBC (Auto) Urine Creatinine Salicylates Acetaminophen 05/28/21 05/29/21 05/29/21 23:28 02:59 04:15 WBC RBC Hgb Hct MCV MCH MCHC RDW Plt Count Seg Neuts % (Manual) Lymphocytes % (Manual) Seg Neutrophils # Man Lymphocytes # (Manual) Monocytes # (Manual) APTT D-Dimer ABG pH 7.481 H POC ABG pCO2 24.6 L POC ABG pO2 ABG Hemoglobin 10.6 L ABG Oxyhemoglobin ABG Sodium 149.5 H ABG Chloride 122.0 H ABG Glucose 129 H Carboxyhemoglobin 0.3 L Sodium 159 H Potassium Chloride 124.0 H Carbon Dioxide 21 L BUN 88 H Creatinine 2.4 H Glucose 136 H POC Glucose 139 H Lactic Acid Calcium 6.8 L Phosphorus Magnesium Ferritin AST ALT Alkaline Phosphatase Lactate Dehydrogenase Troponin T C-Reactive Protein Albumin Triglycerides HDL Cholesterol Arterial Blood Glucose 129 H Arterial Blood Ionized Calcium 3.8 L Urine WBC (Auto) Urine Creatinine Salicylates Acetaminophen 05/29/21 05/29/21 05/29/21 05:13 15:35 18:05 WBC RBC Hgb Hct MCV MCH MCHC RDW Plt Count Seg Neuts % (Manual) Lymphocytes % (Manual) Seg Neutrophils # Man Lymphocytes # (Manual) Monocytes # (Manual) APTT D-Dimer ABG pH POC ABG pCO2 POC ABG pO2 ABG Hemoglobin ABG Oxyhemoglobin ABG Sodium ABG Chloride ABG Glucose Carboxyhemoglobin Sodium 160 H Potassium Chloride 124.8 H Carbon Dioxide 20 L BUN 83 H Creatinine 1.9 H Glucose 147 H POC Glucose 138 H 141 H Lactic Acid Calcium 7.1 L Phosphorus Magnesium Ferritin AST ALT Alkaline Phosphatase Lactate Dehydrogenase Troponin T C-Reactive Protein Albumin Triglycerides HDL Cholesterol Arterial Blood Glucose Arterial Blood Ionized Calcium Urine WBC (Auto) Urine Creatinine Salicylates Acetaminophen 05/29/21 05/30/21 05/30/21 23:22 01:20 04:33 WBC RBC Hgb Hct MCV MCH MCHC RDW Plt Count Seg Neuts % (Manual) Lymphocytes % (Manual) Seg Neutrophils # Man Lymphocytes # (Manual) Monocytes # (Manual) APTT D-Dimer ABG pH 7.484 H POC ABG pCO2 24.6 L POC ABG pO2 131.2 H ABG Hemoglobin 11.7 L ABG Oxyhemoglobin 98.1 H ABG Sodium 155.7 H ABG Chloride 126.0 H ABG Glucose 191 H Carboxyhemoglobin 0.1 L Sodium 162 H* Potassium Chloride 129.0 H Carbon Dioxide 19 L BUN 89 H Creatinine 2.1 H Glucose 190 H POC Glucose 160 H Lactic Acid Calcium 7.4 L Phosphorus Magnesium Ferritin AST ALT Alkaline Phosphatase Lactate Dehydrogenase Troponin T C-Reactive Protein Albumin Triglycerides HDL Cholesterol Arterial Blood Glucose 191 H Arterial Blood Ionized Calcium 4.1 L Urine WBC (Auto) Urine Creatinine Salicylates Acetaminophen 05/30/21 05/30/21 05/30/21 05:21 15:25 17:59 WBC RBC Hgb Hct MCV MCH MCHC RDW Plt Count Seg Neuts % (Manual) Lymphocytes % (Manual) Seg Neutrophils # Man Lymphocytes # (Manual) Monocytes # (Manual) APTT D-Dimer ABG pH POC ABG pCO2 POC ABG pO2 ABG Hemoglobin ABG Oxyhemoglobin ABG Sodium ABG Chloride ABG Glucose Carboxyhemoglobin Sodium 161 H* Potassium 3.4 L Chloride 131.7 H Carbon Dioxide 18 L BUN 77 H Creatinine 1.5 H Glucose 200 H POC Glucose 169 H 147 H Lactic Acid Calcium 7.2 L Phosphorus Magnesium Ferritin AST ALT Alkaline Phosphatase Lactate Dehydrogenase Troponin T C-Reactive Protein Albumin Triglycerides HDL Cholesterol Arterial Blood Glucose Arterial Blood Ionized Calcium Urine WBC (Auto) Urine Creatinine Salicylates Acetaminophen 05/30/21 05/31/21 05/31/21 23:34 04:33 05:29 WBC RBC Hgb Hct MCV MCH MCHC RDW Plt Count Seg Neuts % (Manual) Lymphocytes % (Manual) Seg Neutrophils # Man Lymphocytes # (Manual) Monocytes # (Manual) APTT D-Dimer ABG pH POC ABG pCO2 POC ABG pO2 ABG Hemoglobin ABG Oxyhemoglobin ABG Sodium ABG Chloride ABG Glucose Carboxyhemoglobin Sodium 154 H Potassium Chloride 123.6 H Carbon Dioxide 19 L BUN 52 H Creatinine Glucose 139 H POC Glucose 153 H 132 H Lactic Acid Calcium 7.1 L Phosphorus 2.30 L Magnesium Ferritin AST ALT Alkaline Phosphatase Lactate Dehydrogenase Troponin T C-Reactive Protein Albumin Triglycerides HDL Cholesterol Arterial Blood Glucose Arterial Blood Ionized Calcium Urine WBC (Auto) Urine Creatinine Salicylates Acetaminophen 05/31/21 05/31/21 05/31/21 11:47 15:23 17:18 WBC RBC Hgb Hct MCV MCH MCHC RDW Plt Count Seg Neuts % (Manual) Lymphocytes % (Manual) Seg Neutrophils # Man Lymphocytes # (Manual) Monocytes # (Manual) APTT D-Dimer ABG pH POC ABG pCO2 POC ABG pO2 ABG Hemoglobin ABG Oxyhemoglobin ABG Sodium ABG Chloride ABG Glucose Carboxyhemoglobin Sodium 149 H Potassium 3.4 L D Chloride 117.7 H Carbon Dioxide 21 L BUN 40 H Creatinine Glucose 139 H POC Glucose 114 H 108 H Lactic Acid Calcium 7.0 L Phosphorus Magnesium Ferritin AST ALT Alkaline Phosphatase Lactate Dehydrogenase Troponin T C-Reactive Protein Albumin Triglycerides HDL Cholesterol Arterial Blood Glucose Arterial Blood Ionized Calcium Urine WBC (Auto) Urine Creatinine Salicylates Acetaminophen 05/31/21 06/01/21 06/01/21 23:13 04:00 05:50 WBC RBC Hgb Hct MCV MCH MCHC RDW Plt Count Seg Neuts % (Manual) Lymphocytes % (Manual) Seg Neutrophils # Man Lymphocytes # (Manual) Monocytes # (Manual) APTT D-Dimer ABG pH 7.555 H POC ABG pCO2 27.6 L POC ABG pO2 65.6 L ABG Hemoglobin 9.2 L ABG Oxyhemoglobin ABG Sodium ABG Chloride 111.0 H ABG Glucose 143 H Carboxyhemoglobin 0.1 L Sodium Potassium Chloride Carbon Dioxide BUN Creatinine Glucose POC Glucose 126 H 121 H Lactic Acid Calcium Phosphorus Magnesium Ferritin AST ALT Alkaline Phosphatase Lactate Dehydrogenase Troponin T C-Reactive Protein Albumin Triglycerides HDL Cholesterol Arterial Blood Glucose 143 H Arterial Blood Ionized Calcium 3.7 L Urine WBC (Auto) Urine Creatinine Salicylates Acetaminophen 06/01/21 06/01/21 06/01/21 10:10 10:10 11:35 WBC 17.6 H RBC Hgb Hct MCV MCH 27 L MCHC RDW Plt Count 105 L Seg Neuts % (Manual) Lymphocytes % (Manual) Seg Neutrophils # Man Lymphocytes # (Manual) Monocytes # (Manual) APTT D-Dimer ABG pH POC ABG pCO2 POC ABG pO2 ABG Hemoglobin ABG Oxyhemoglobin ABG Sodium ABG Chloride ABG Glucose Carboxyhemoglobin Sodium Potassium 3.5 L Chloride Carbon Dioxide BUN 30 H Creatinine Glucose 137 H POC Glucose 112 H Lactic Acid Calcium 7.1 L Phosphorus 1.80 L D Magnesium 1.40 L Ferritin AST ALT Alkaline Phosphatase Lactate Dehydrogenase Troponin T C-Reactive Protein Albumin Triglycerides HDL Cholesterol Arterial Blood Glucose Arterial Blood Ionized Calcium Urine WBC (Auto) Urine Creatinine Salicylates Acetaminophen 06/01/21 06/02/21 06/02/21 17:41 05:24 09:50 WBC 17.1 H RBC 3.14 L Hgb 8.5 L D Hct 25.6 L D MCV 82 L MCH 27 L MCHC RDW Plt Count 124 L Seg Neuts % (Manual) Lymphocytes % (Manual) Seg Neutrophils # Man Lymphocytes # (Manual) Monocytes # (Manual) APTT D-Dimer ABG pH POC ABG pCO2 POC ABG pO2 ABG Hemoglobin ABG Oxyhemoglobin ABG Sodium ABG Chloride ABG Glucose Carboxyhemoglobin Sodium Potassium Chloride 108.1 H Carbon Dioxide BUN 31 H Creatinine 0.7 L Glucose 128 H POC Glucose 125 H Lactic Acid Calcium 6.1 L Phosphorus Magnesium Ferritin AST ALT Alkaline Phosphatase Lactate Dehydrogenase Troponin T C-Reactive Protein Albumin Triglycerides HDL Cholesterol Arterial Blood Glucose Arterial Blood Ionized Calcium Urine WBC (Auto) Urine Creatinine Salicylates Acetaminophen 06/02/21 06/03/21 06/03/21 18:43 00:25 05:43 WBC RBC Hgb Hct MCV MCH MCHC RDW Plt Count Seg Neuts % (Manual) Lymphocytes % (Manual) Seg Neutrophils # Man Lymphocytes # (Manual) Monocytes # (Manual) APTT D-Dimer ABG pH POC ABG pCO2 POC ABG pO2 ABG Hemoglobin ABG Oxyhemoglobin ABG Sodium ABG Chloride ABG Glucose Carboxyhemoglobin Sodium Potassium Chloride Carbon Dioxide BUN Creatinine Glucose POC Glucose 111 H 124 H 127 H Lactic Acid Calcium Phosphorus Magnesium Ferritin AST ALT Alkaline Phosphatase Lactate Dehydrogenase Troponin T C-Reactive Protein Albumin Triglycerides HDL Cholesterol Arterial Blood Glucose Arterial Blood Ionized Calcium Urine WBC (Auto) Urine Creatinine Salicylates Acetaminophen 06/03/21 06/03/21 06/03/21 06:20 06:20 17:46 WBC 19.4 H RBC 3.24 L Hgb 8.7 L Hct 26.7 L MCV 82 L MCH 27 L MCHC RDW Plt Count Seg Neuts % (Manual) Lymphocytes % (Manual) Seg Neutrophils # Man Lymphocytes # (Manual) Monocytes # (Manual) APTT D-Dimer ABG pH POC ABG pCO2 POC ABG pO2 ABG Hemoglobin ABG Oxyhemoglobin ABG Sodium ABG Chloride ABG Glucose Carboxyhemoglobin Sodium Potassium Chloride 108.1 H Carbon Dioxide BUN 31 H Creatinine 0.6 L Glucose 126 H POC Glucose 125 H Lactic Acid Calcium 6.8 L Phosphorus Magnesium Ferritin AST ALT Alkaline Phosphatase Lactate Dehydrogenase Troponin T C-Reactive Protein Albumin Triglycerides HDL Cholesterol Arterial Blood Glucose Arterial Blood Ionized Calcium Urine WBC (Auto) Urine Creatinine Salicylates Acetaminophen 06/03/21 06/04/21 06/04/21 23:27 17:29 23:11 WBC RBC Hgb Hct MCV MCH MCHC RDW Plt Count Seg Neuts % (Manual) Lymphocytes % (Manual) Seg Neutrophils # Man Lymphocytes # (Manual) Monocytes # (Manual) APTT D-Dimer ABG pH POC ABG pCO2 POC ABG pO2 ABG Hemoglobin ABG Oxyhemoglobin ABG Sodium ABG Chloride ABG Glucose Carboxyhemoglobin Sodium Potassium Chloride Carbon Dioxide BUN Creatinine Glucose POC Glucose 125 H 116 H 126 H Lactic Acid Calcium Phosphorus Magnesium Ferritin AST ALT Alkaline Phosphatase Lactate Dehydrogenase Troponin T C-Reactive Protein Albumin Triglycerides HDL Cholesterol Arterial Blood Glucose Arterial Blood Ionized Calcium Urine WBC (Auto) Urine Creatinine Salicylates Acetaminophen 06/05/21 06/05/21 06/05/21 02:03 04:59 05:07 WBC RBC Hgb Hct MCV MCH MCHC RDW Plt Count Seg Neuts % (Manual) Lymphocytes % (Manual) Seg Neutrophils # Man Lymphocytes # (Manual) Monocytes # (Manual) APTT D-Dimer ABG pH POC ABG pCO2 POC ABG pO2 ABG Hemoglobin ABG Oxyhemoglobin ABG Sodium ABG Chloride ABG Glucose Carboxyhemoglobin Sodium 150 H Potassium Chloride 112.0 H Carbon Dioxide BUN 36 H Creatinine 0.6 L Glucose 113 H POC Glucose 119 H 110 H Lactic Acid Calcium 7.9 L D Phosphorus Magnesium Ferritin AST ALT Alkaline Phosphatase Lactate Dehydrogenase Troponin T C-Reactive Protein Albumin Triglycerides HDL Cholesterol Arterial Blood Glucose Arterial Blood Ionized Calcium Urine WBC (Auto) Urine Creatinine Salicylates Acetaminophen 06/05/21 06/05/21 06/05/21 09:41 14:01 23:29 WBC 21.2 H RBC 2.83 L Hgb 7.7 L Hct 23.5 L MCV 83 L MCH 27 L MCHC RDW Plt Count Seg Neuts % (Manual) Lymphocytes % (Manual) Seg Neutrophils # Man Lymphocytes # (Manual) Monocytes # (Manual) APTT D-Dimer ABG pH POC ABG pCO2 POC ABG pO2 ABG Hemoglobin ABG Oxyhemoglobin ABG Sodium ABG Chloride ABG Glucose Carboxyhemoglobin Sodium Potassium Chloride Carbon Dioxide BUN Creatinine Glucose POC Glucose 116 H 111 H Lactic Acid Calcium Phosphorus Magnesium Ferritin AST ALT Alkaline Phosphatase Lactate Dehydrogenase Troponin T C-Reactive Protein Albumin Triglycerides HDL Cholesterol Arterial Blood Glucose Arterial Blood Ionized Calcium Urine WBC (Auto) Urine Creatinine Salicylates Acetaminophen
[2021-06-06] MEDS ORDERED: LIDOCAINE 1%/EPINEPHRINE 1:100,000 VIAL (20 ML) INFILTRATI ONE ×2 (13:30→14:22)
--- NOTE | 2021-06-06 13:43 | Progress Note ---
<MARIOBHUMIKA H. - Last Filed: 06/06/21 13:39> Assessment and Plan Assessment and plan: This 81-year-old male with hypertension and dementia admitted with acute hypoxic respiratory failure suspected, COVID-19 PUI, pneumonia, hypernatremia, volume depletion, urinary tract infection, toxic metabolic encephalopathy, SIXTO, sepsis Neuro: Acute metabolic encephalopathy -Aspiration/seizure precautions -05/26 CT head shows no focal mass, hemorrhage, hydrocephalus or acute or large territorial infarct, mild to moderate mucosal thickening in the ethmoid with prior mastoidectomy noted on the right, vascular disease seen in the anterior and posterior circulation, moderate diffuse cerebral atrophy with anterior temporal lobe atrophy being the greatest, moderate to marked degree of hippocampal atrophy suggested bilaterally, suggestion of encephalomalacia in the inferior temporal lobe on the right as well as anterior temporal lobe with question prior branch infarct or trauma -Neurology consulted -06/03 EEG shows diffuse background slowing in 3-4 Hz noted throughout the methacholine, no focal slowing, no epileptiform discharge appreciated, findings suggestive of encephalopathic center toxic metabolic, drug effect, and/or anoxic, clinical correlation is in order Right posterior cerebral artery infarction -Neurology consulted, patient recommendations -06/03 MRI brain shows large recent right posterior cerebral artery infarction with evidence of cortical laminar necrosis, probably mobile atrophy with apparent focal atrophy involving the right temporal lobe -06/03 echocardiogram shows normal echocardiogram, LV normal size, normal LV wall thickness, LVEF 60-75 %, mild diastolic dysfunction present, mild to moderate calcification of the noncoronary cusp noted, mild aortic stenosis, mild AR, IVC is normal in size and collapses greater than 50% with inspiration, saline bubble contrast intravenous injection does not demonstrate PFO -06/03 CTA neck/head pending -Aspirin, Lipitor -05/26 lipid panel: Triglycerides 150, cholesterol 145, LDL 84, HDL 24 -ST/PT/OT consulted, patient is currently vented CV: ?Hypertension -No recorded home medications -Amlodipine -Hydralazine as needed -Blood pressure monitoring per protocol ? CAD -05/26 CT chest/abdomen/pelvis without contrast dense atherosclerotic calcification of the thoracic aorta distribution of the coronary vessels, scattered patchy ill-defined densities within the mid and lower lung zone, mild prominence of both ureters, dense atherosclerotic calcification along the abdominal aorta without evidence of aneurysm -Need to follow-up with PCP -Station initiated for CVA Elevated troponin -Possibly NSTEMI in setting of SIXTO -Trend CE Respiratory: Acute hypoxemic respiratory failure -On mechanical ventilation -Wean mechanical ventilation as tolerated -VAP bundle -ABGs as needed -CXR daily for 7 days per protocol -Daily SBT -[facility] plans for trial extubation today FEN/GI: Acute kidney injury/ATN, resolved -Presented with BUN/creatinine of 118/5.4 -Nephrology consulted, appreciate recommendations -Strict intake and output -Daily weights -Nephrotoxic medications -Renally dose medications -On tube feedings -SSI, Accu-Cheks every 6 Protein calorie malnutrition -Nutrition consulted, patient recommendations Hypocalcemia -Repleted with IV calcium without change -Started on oral calcium replacement supplements -Trend BMP Hypernatremia/hypochloremia -06/05 sodium 150 -Nursing instructed on free water flush orders for hyponatremia per nutrition -Trend BMP : Urinary Retention -White placed for urinary retention -Flomax -Added Proscar ID/Heme: Sepsis -Presented with with tachycardia, febrile to 102.8 degrees Fahrenheit, acute hypoxic respiratory failure, acute kidney injury, pneumonia on imaging, pyuria -s/p abx therapy -05/26 CT chest showed faint bilateral patchy pulmonary opacities suggestive of infectious process that is pneumonia -05/26 blood cultures x2 no growth after 5 days -05/26 sputum culture grew E. coli, Staph aureus (pansensitive) -05/31 blood cultures x2 no growth to date -06/05 UA shows no LE, nitrates or pyuria UTI -s/p abx therapy -05/26 UA with pyuria, 06/05 Ua shows no LE, nitrates or pyuria -05/26 urine culture with no growth to date Bilateral PNA -s/p abx therapy -seen on CT chest Anemia -Transfuse for hgb <7 -Stool guiac pending -05/23 coag studies: PT 14, INR 1.03 Leukocytosis -Trend CBC DVT/GI prophylaxis: Heparin subq, SCDs to bilateral LE while in bed, PPI Disposition: ICU Lines: condom cath, PIVs The high probability of a clinically significant, sudden or life threatening deterioration of the [respiratory, renal and electrolyte] system(s) required my full and direct attention, intervention and personal management. The aggregate critical care time was [35] minutes. This time is in addition to time spent performing reported procedures but includes the following: [x] Data Review and interpretation [x] Patient assessment and monitoring of vital signs [x] Documentation [x] Medication orders and management History Interval history: This 81-year-old male with hypertension and dementia who presents to [facility] ER on 05/26 with decreased responsiveness since 05/25 per family. Patient was placed on nasopharyngeal airway and bagged by EMS on route to [facility]. Upon arrival to emergency indices 05/27/2021. Patient with severe hypernatremia secondary to dehydration/vasomotor nephropathy. Continue IV fluid hydration per nephrology recommendations. Patient with a creatinine September 2019 of 0.7. On this admission patient was noted to have a creatinine of 5.4. Slightly improved today to 4.2. Etiology secondary to vasomotor nephropathy/acute kidney injury/volume depletion/dehydration. Follow-up urine studies. CT scan of the abdomen pelvis did not reveal any obstruction. CT chest revealed bilateral pulmonary opacities. Patient with elevated D-dimer that may be secondary to Covid coagulopathy. Consider VQ scan. Unable to perform CTA given renal insufficiency. Await pulmonary consultation 05/28/2021. Hyponatremia has improved to 159. Continue IV fluid hydration per nephrology recommendations. Creatinine has also improved to 2.9. No obstruction per CT scan. COVID-19 testing negative on 05/27/2021. Continue IV antibiotics for bilateral pneumonia and UTI. Follow-up blood and urine cultures. Consider ID consultation patient remains on mechanical ventilation but undergoing PSV trials. Patient currently with PSV with FiO2 of 30% PEEP of 6 and pressure support of 10. Continue vent weaning per pulmonary. 05/29/2021. Hypernatremia persists with sodium improving to 154 yesterday evening but now back to 159. Creatinine has improved to 2.4. Nephrology following.Continue current antibiotics for pneumonia and UTI. Consider CTA of chest for elevated D-dimer when creatinine back to baseline. Patient currently on AC mode ventilation rate of 16, tidal volume 450, FiO2 30% and PEEP of 6. 05/30/2021. Sodium remains elevated at 162 and creatinine elevated at 2.1. Continue free water with 300 mL every 4 hours. Nephrology held IV D5W. Resume IV fluids per nephrology recommendations. CT scan of the abdomen negative for hydronephrosis. Continue IV antibiotics. Patient remains on mechanical ventilation AC mode rate of 20, tidal volume 450, FiO2 40% and a PEEP of 6. 7/: Patient has hypernatremia improved to 149, this a.m. patient was noted to have a potassium of 4.5 and potassium and his D5 was discontinued and changed to D5W. This evening he was noted the patient had a potassium of 3.4 which was repleted. Patient was started to have hypophosphatemia today which was repleted. Antibiotics were escalated to's ceftriaxone for pansensitive E. coli patient received 7 days of therapy so repeat blood cultures were ordered. 06/01: CPAP trial yesterday lasted from 9am-5pm, will retry CPAP today. Replace Mg, Phos, K, DC IVF in setting of improved Na 06/02: Hypocalcemia today which was corrected. Given neuro status unchanged, Neuro consult requested who ordered MRI B and EEG. CPAP trial. drop in h/h, occult stool, coags, type and screen ordered. remove white, bladder scan and straight cath as needed 06/03: Hypocalcemia again today, started on PO Ca supplements, h/h stable from yesterday, MRI B pending, EEG completed, added proscar re RN needing to ph ysically press on bladder for urine. Decrease in BP med. [facility] plans for trial extubation 06/04 MRI showed cerebral infarct, neurology , CCM and Dr. Merrill aware. No acute events reported overnight. CPAP trial this a.m. General surgery consulted for the trach/PEG. Dr. Merrill and Dr. Guo spoke to family at bedside. 06/05: Family at bedside to decide for trach/PEG. Overnight patient had episode of desaturation and his FiO2 was at 100%. Later in the morning was down to 50% patient was satting 100% by [facility]. Patient 06/06: Patient was febrile overnight however his urinalysis and CXR showed no acute abnormality, patient was recultured on 06/04 and does blood cultures have no growth for 24 hours. Patient is scheduled for trach/PEG with Dr. Guo. Patient continues to have leukocytosis and spite of completing ABX. A.m. labs still pending. Hospitalist Physical - Constitutional Vitals: Temp Pulse Resp BP Pulse Ox 102.2 F H 78 24 135/67 100 06/06/21 03:31 06/06/21 12:00 06/06/21 12:00 06/06/21 11:15 06/06/21 12:00 General appearance: Present: no acute distress, other (Response to tactile stimuli) - EENT Eyes: Present: PERRL ENT: clear oral mucosa - Neck Neck: Present: normal ROM - Respiratory Respiratory effort: normal Respiratory: bilateral: rhonchi - Cardiovascular Rhythm: regular Heart Sounds: Present: S1 & S2. Absent: systolic murmur, diastolic murmur - Extremities Extremities: no ischemia, pulses intact, pulses symmetrical, No edema, normal temperature, normal color Peripheral Pulses: within normal limits - Abdominal General gastrointestinal: soft, non-tender, non-distended, normal bowel sounds - Integumentary Integumentary: Present: warm, dry - Neurologic Neurologic: other (Withdraws upper extremities to painful stimuli, open eyes to sternal rub, intact cough/gag, pupils equal and reactive) - Allied Health Allied health notes reviewed: nursing, RT HEART Score - HEART Score Troponin: Troponin T 0.038 ng/mL (0.00-0.029) H 05/26/21 17:08 Results - Labs CBC & Chem 7: 06/05/21 09:41 06/05/21 04:59 Labs: Laboratory Last Values WBC 21.2 K/mm3 (4.5-11.0) H 06/05/21 09:41 RBC 2.83 M/mm3 (3.65-5.03) L 06/05/21 09:41 Hgb 7.7 gm/dl (11.8-15.2) L 06/05/21 09:41 Hct 23.5 % (35.5-45.6) L 06/05/21 09:41 MCV 83 fl (84-94) L 06/05/21 09:41 MCH 27 pg (28-32) L 06/05/21 09:41 MCHC 33 % (32-34) 06/05/21 09:41 RDW 14.6 % (13.2-15.2) 06/05/21 09:41 Plt Count 341 K/mm3 (140-440) D 06/05/21 09:41 Lymph % (Auto) 30.3 % (13.4-35.0) 05/26/21 17:08 [place] % (Auto) 6.1 % (0.0-7.3) 05/26/21 17:08 Eos % (Auto) 1.0 % (0.0-4.3) 05/26/21 17:08 Baso % (Auto) 0.5 % (0.0-1.8) 05/26/21 17:08 Lymph # (Auto) 3.0 K/mm3 (1.2-5.4) 05/26/21 17:08 [place] # (Auto) 0.6 K/mm3 (0.0-0.8) 05/26/21 17:08 Eos # (Auto) 0.1 K/mm3 (0.0-0.4) 05/26/21 17:08 Baso # (Auto) 0.1 K/mm3 (0.0-0.1) 05/26/21 17:08 Add Manual Diff Complete 05/27/21 02:00 Total Counted 100 05/27/21 02:00 Seg Neutrophils % Director Of Casework Department 05/27/21 02:00 Seg Neuts % (Manual) 93.0 % (40.0-70.0) H 05/27/21 02:00 Lymphocytes % (Manual) 3.0 % (13.4-35.0) L 05/27/21 02:00 Monocytes % (Manual) 4.0 % (0.0-7.3) 05/27/21 02:00 Nucleated RBC % Not Reportable 05/27/21 02:00 Seg Neutrophils # 6.1 K/mm3 (1.8-7.7) 05/26/21 17:08 Seg Neutrophils # Man 25.2 K/mm3 (1.8-7.7) H 05/27/21 02:00 Band Neutrophils # 0.0 K/mm3 05/27/21 02:00 Lymphocytes # (Manual) 0.8 K/mm3 (1.2-5.4) L 05/27/21 02:00 Abs React Lymphs (Man) 0.0 K/mm3 05/27/21 02:00 Monocytes # (Manual) 1.1 K/mm3 (0.0-0.8) H 05/27/21 02:00 Eosinophils # (Manual) 0.0 K/mm3 (0.0-0.4) 05/27/21 02:00 Basophils # (Manual) 0.0 K/mm3 (0.0-0.1) 05/27/21 02:00 Metamyelocytes # 0.0 K/mm3 05/27/21 02:00 Myelocytes # 0.0 K/mm3 05/27/21 02:00 Promyelocytes # 0.0 K/mm3 05/27/21 02:00 Blast Cells # 0.0 K/mm3 05/27/21 02:00 WBC Morphology Not Reportable 05/27/21 02:00 Hypersegmented Neuts Not Reportable 05/27/21 02:00 Hyposegmented Neuts Not Reportable 05/27/21 02:00 Hypogranular Neuts Not Reportable 05/27/21 02:00 Smudge Cells Not Reportable 05/27/21 02:00 Toxic Granulation Not Reportable 05/27/21 02:00 Toxic Vacuolation Not Reportable 05/27/21 02:00 Dohle Bodies Not Reportable 05/27/21 02:00 Pelger-Huet Anomaly Not Reportable 05/27/21 02:00 Daniel Rods Not Reportable 05/27/21 02:00 Platelet Estimate Not Reportable 05/27/21 02:00 Clumped Platelets Not Reportable 05/27/21 02:00 Plt Clumps, EDTA Not Reportable 05/27/21 02:00 Large Platelets Not Reportable 05/27/21 02:00 Giant Platelets Not Reportable 05/27/21 02:00 Platelet Satelliting Not Reportable 05/27/21 02:00 Plt Morphology Comment Not Reportable 05/27/21 02:00 RBC Morphology Normal 05/27/21 02:00 Dimorphic RBCs Not Reportable 05/27/21 02:00 Polychromasia Not Reportable 05/27/21 02:00 Hypochromasia Not Reportable 05/27/21 02:00 Poikilocytosis Not Reportable 05/27/21 02:00 Anisocytosis Not Reportable 05/27/21 02:00 Microcytosis Not Reportable 05/27/21 02:00 Macrocytosis Not Reportable 05/27/21 02:00 Spherocytes Not Reportable 05/27/21 02:00 Pappenheimer Bodies Not Reportable 05/27/21 02:00 Sickle Cells Not Reportable 05/27/21 02:00 Target Cells Not Reportable 05/27/21 02:00 Tear Drop Cells Not Reportable 05/27/21 02:00 Ovalocytes Not Reportable 05/27/21 02:00 Helmet Cells Not Reportable 05/27/21 02:00 Hu[place] Bodies Not Reportable 05/27/21 02:00 [place] Rings Not Reportable 05/27/21 02:00 Bernard Cells Not Reportable 05/27/21 02:00 Bite Cells Not Reportable 05/27/21 02:00 Crenated Cell Not Reportable 05/27/21 02:00 Elliptocytes Not Reportable 05/27/21 02:00 Acanthocytes (Spur) Not Reportable 05/27/21 02:00 Rouleaux Not Reportable 05/27/21 02:00 Hemoglobin C Crystals Not Reportable 05/27/21 02:00 Schistocytes Not Reportable 05/27/21 02:00 Malaria parasites Not Reportable 05/27/21 02:00 Arik Bodies Not Reportable 05/27/21 02:00 Hem Pathologist Commnt No 05/27/21 02:00 PT 14.0 Sec. (12.2-14.9) 06/02/21 16:57 INR 1.03 (0.87-1.13) 06/02/21 16:57 APTT 42.4 Sec. (24.2-36.6) H 05/26/21 17:08 D-Dimer 8255.81 ng/mlDDU (0-234) H 05/26/21 17:08 ABG pH 7.555 (7.320-7.450) H 06/01/21 04:00 POC ABG pCO2 27.6 mmHg (32.0-48.0) L 06/01/21 04:00 POC ABG pO2 65.6 mmHg (83-108) L 06/01/21 04:00 POC ABG HCO3 23.9 06/01/21 04:00 ABG O2 Saturation 94.5 (0-100) 06/01/21 04:00 POC ABG Base Excess 2.0 06/01/21 04:00 ABG Hemoglobin 9.2 (12.0-17.5) L 06/01/21 04:00 ABG Oxyhemoglobin 94.1 (94-98) 06/01/21 04:00 ABG Methemoglobin 0.3 (0.0-1.5) 06/01/21 04:00 ABG Sodium 137.4 mmol/L (136.0-145.0) 06/01/21 04:00 ABG Potassium 3.5 mmol/L (3.40-4.50) 06/01/21 04:00 ABG Chloride 111.0 mmol/L (98-107) H 06/01/21 04:00 ABG Glucose 143 mg/dL (65-95) H 06/01/21 04:00 Carboxyhemoglobin 0.1 (0.5-1.5) L 06/01/21 04:00 FiO2 % 40.0 06/01/21 04:00 Sodium 150 mmol/L (137-145) H 06/05/21 04:59 Potassium 3.9 mmol/L (3.6-5.0) 06/05/21 04:59 Chloride 112.0 mmol/L (98-107) H 06/05/21 04:59 Carbon Dioxide 27 mmol/L (22-30) 06/05/21 04:59 Anion Gap 15 mmol/L 06/05/21 04:59 BUN 36 mg/dL (9-20) H 06/05/21 04:59 Creatinine 0.6 mg/dL (0.8-1.3) L 06/05/21 04:59 Estimated GFR > 60 ml/min 06/05/21 04:59 BUN/Creatinine Ratio 60 % 06/05/21 04:59 Glucose 113 mg/dL (75-100) H 06/05/21 04:59 POC Glucose 101 mg/dL (70-105) 06/06/21 11:07 Lactic Acid 1.60 mmol/L (0.7-2.0) 05/27/21 12:08 Calcium 7.9 mg/dL (8.4-10.2) L D 06/05/21 04:59 Phosphorus 2.50 mg/dL (2.5-4.5) 06/03/21 06:20 Magnesium 2.10 mg/dL (1.7-2.3) 06/02/21 05:24 Ferritin 598.3 ng/mL (30.0-300.0) H 05/26/21 17:08 Total Bilirubin 0.50 mg/dL (0.1-1.2) 05/27/21 02:00 AST 66 units/L (5-40) H 05/27/21 02:00 ALT 64 units/L (7-56) H 05/27/21 02:00 Alkaline Phosphatase 126 units/L (35-129) 05/27/21 02:00 Ammonia 46.0 umol/L (25-60) 05/26/21 17:08 Lactate Dehydrogenase 550 units/L (91-180) H 05/26/21 17:08 Troponin T 0.038 ng/mL (0.00-0.029) H 05/26/21 17:08 C-Reactive Protein 4.20 mg/dL (0.00-1.30) H 05/26/21 17:08 Total Protein 6.6 g/dL (6.3-8.2) 05/27/21 02:00 Albumin 2.9 g/dL (3.9-5) L 05/27/21 02:00 Albumin/Globulin Ratio 0.8 % 05/27/21 02:00 Triglycerides 150 mg/dL (2-149) H 05/26/21 17:08 Cholesterol 145 mg/dL (50-199) 05/26/21 17:08 LDL Cholesterol Direct 84 mg/dL (50-130) 05/26/21 17:08 HDL Cholesterol 24 mg/dL (40-59) L 05/26/21 17:08 Cholesterol/HDL Ratio 6.04 % 05/26/21 17:08 Procalcitonin 0.29 ng/mL (<0.15) 05/26/21 17:08 TSH 0.342 mlU/mL (0.270-4.200) 05/26/21 17:08 Arterial Blood Glucose 143 mg/dL (65-95) H 06/01/21 04:00 Arterial Blood Ionized Calcium 3.7 mg/dL (4.6-5.3) L 06/01/21 04:00 Urine Color Yellow (Yellow) 06/06/21 Unknown Urine Turbidity Slightly-cloudy (Clear) 06/06/21 Unknown Urine pH 7.0 (5.0-7.0) 06/06/21 Unknown Ur Specific [place]yx 1.013 (1.003-1.030) 06/06/21 Unknown Urine Protein <15 mg/dl mg/dL (Negative) 06/06/21 Unknown Urine Glucose (UA) Neg mg/dL (Negative) 06/06/21 Unknown Urine Ketones Neg mg/dL (Negative) 06/06/21 Unknown Urine Blood Sm (Negative) 06/06/21 Unknown Urine Nitrite Neg (Negative) 06/06/21 Unknown Urine Bilirubin Neg (Negative) 06/06/21 Unknown Urine Urobilinogen < 2.0 mg/dL (<2.0) 06/06/21 Unknown Ur Leukocyte Esterase Neg (Negative) 06/06/21 Unknown Urine WBC (Auto) < 1.0 /HPF (0.0-6.0) 06/06/21 Unknown Urine RBC (Auto) 4.0 /HPF (0.0-6.0) 06/06/21 Unknown U Epithel Cells (Auto) 2.0 /HPF (0-13.0) 06/06/21 Unknown Urine Bacteria (Auto) 1+ /HPF (Negative) 05/26/21 Unknown Urine Mucus Few /HPF 06/06/21 Unknown Urine Yeast (Budding) 3+ /HPF 06/06/21 Unknown Urine Osmolality 392 Mosm/kg 05/26/21 Unknown Urine Creatinine 51.6 mg/dL (0.1-20.0) H 05/26/21 Unknown Urine Sodium 96 mmol/L 05/26/21 Unknown Random Vancomycin 14.8 ug/mL (0-40.0) 05/30/21 08:29 Salicylates < 0.3 mg/dL (2.8-20.0) L 05/26/21 17:08 Acetaminophen < 5.0 ug/mL (10.0-30.0) L 05/26/21 17:08 Coronavirus (PCR) Negative (Negative) 05/27/21 Unknown Blood Type O POSITIVE 06/02/21 16:57 Antibody Screen Negative 06/02/21 16:57 Microbiology: Microbiology 06/04/21 09:56 Peripheral/Venous Blood Culture - Preliminary NO GROWTH AFTER 48 HOURS 06/04/21 15:59 Peripheral/Venous Blood Culture - Preliminary NO GROWTH AFTER 24 HOURS 05/31/21 15:23 Peripheral/Venous Blood Culture - Final NO GROWTH AFTER 5 DAYS 05/31/21 15:23 Peripheral/Venous Blood Culture - Final NO GROWTH AFTER 5 DAYS White/IV: Voiding Method Condom Catheter Active Medications - Current Medications Current Medications: Generic Name Dose Route Start Last Admin Trade Name Freq PRN Reason Stop Dose Admin Acetaminophen 650 mg 05/30/21 08:30 06/06/21 05:02 Acetaminophen 325 Mg/10.15 Ml Oral Liqd Unit Dose FEEDTUBE 650 mg Q6H PRN Administration Pain 1 -3, fever >100.5 Albuterol 2.5 mg 05/26/21 18:34 Albuterol 2.5 Mg/3 Ml Nebu IH Q3HRT PRN Shortness Of Breath Amlodipine Besylate 5 mg 06/03/21 10:00 06/06/21 10:21 Amlodipine 5 Mg Tab PO Not Given QDAY ONDINA Lipase/Protease/Amylase 1 each 05/28/21 08:24 06/06/21 05:10 Lipase 10,500/Protease 25,000/Amylase 43,750 (Units) Dr De Leon FEEDTUBE 1 each PRN PRN Administration For Clogged Feeding Tube Aspirin 325 mg 06/04/21 10:00 06/06/21 10:21 Aspirin Ec 325 Mg Tab PO Not Given QDAY ONDINA Atorvastatin Calcium 40 mg 06/03/21 22:00 06/05/21 22:29 Atorvastatin 40 Mg Tab PO 40 mg QHS ONDINA Administration Famotidine 20 mg 05/28/21 10:00 06/06/21 10:22 Famotidine 20 Mg Tab PO Not Given DAILY ONDINA Finasteride 5 mg 06/03/21 10:00 06/06/21 10:22 Finasteride 5 Mg Tab PO Not Given QDAY ONDINA Heparin Sodium (Porcine) 5,000 unit 05/26/21 22:00 06/06/21 10:22 Heparin 5,000 Unit/1 Ml Vial SUB-Q Not Given Q12HR ONDINA Hydrophilic Ointment 1 applic 05/26/21 17:02 Lip Therapy Vaseline TP Q2HR PRN Dry Lips Propofol 1,000 mg in 100 mls @ 1.361 mls/hr 05/30/21 06:00 05/31/21 08:50 Diprivan 10 Mg/Ml IV 0 mcg/kg/min TITR ONDINA 0 mls/hr Titration Protocol 5 MCG/KG/MIN Multi-Ingred Cream/Lotion/Oil/Oint 1 applic 05/26/21 17:02 Mineral Oil/Petrolatum, White Ophth Oint 3.5 Gm OU Q4HR PRN Dry Eye(s) Senna/Docusate Sodium 1 tab 05/26/21 22:00 06/06/21 10:22 Sennosides/Docusate Sodium 8.6/50 Mg Tab FEEDTUBE Not Given BID ONDINA Simple Syrup 15 ml 05/28/21 08:24 Simple Syrup 15 Ml FEEDTUBE PRN PRN Hypoglycemia Simple Syrup 30 ml 05/28/21 08:24 Simple Syrup 15 Ml FEEDTUBE PRN PRN Hypoglycemia Sodium Bicarbonate 325 mg 05/28/21 08:24 06/06/21 05:10 Sodium Bicarbonate 325 Mg Tab FEEDTUBE 325 mg PRN PRN Administration For Clogged Feeding Tube Sodium Chloride 10 ml 05/26/21 22:00 06/06/21 10:23 Sodium Chloride 0.9% 10 Ml Flush Syringe IV 10 ml BID ONDINA Administration Sodium Chloride 10 ml 05/26/21 18:34 Sodium Chloride 0.9% 10 Ml Flush Syringe IV PRN PRN LINE FLUSH Tamsulosin HCl 0.8 mg 05/29/21 12:00 06/06/21 10:22 Tamsulosin 0.4 Mg Cap PO Not Given QDAY ONDINA Nutrition/Malnutrition Assess - Dietary Evaluation Nutrition/Malnutrition Findings: Nutrition Notes Start: 05/27/21 08:35 Freq: Status: Active Protocol: Document 06/04/21 10:42 (Rec: 06/04/21 10:43 [email or web address]) Nutrition Notes Initial or Follow up Reassessment Current Diagnosis Acute Kidney Injury,Sepsis, Hypertension,Respiratory Failure Other Pertinent Diagnosis UTI, encephalopathy, dehydration, COVID PUI Current Diet Glucerna 1.2 at 45 ml/hr Labs/Tests 06/03: Ca 6.8 Pertinent Medications Calcium carbonate Height 5 ft 2 in Weight 45.359 kg [place] Body Weight (kg) 53.63 BMI 18.3 Weight Status Underweight Subjective/Other Information FU for TF tolerance. Pt tolerating TF at goal rate. Pt had BM yesterday. Percent of energy/protein needs met: 100%/100% Burn Absent Trauma Absent Current % PO Negligible Minimum of two criteria No physical signs of malnutrition #1 Nutrition Diagnosis Inadequate oral intake Diagnosis Progress(for reassessment Continues documentation) Is patient on ventilator? Yes Is Patient Ambulatory and/or Out of Bed No REE-([place]-St. Jeor-confined to bed) [phone] Calculation Used for Recommendations [place]-St Jeor Additional Notes Protein: (1.2-2g/kg) 54-91g Fluid: 1 ml/kcal or per MD Nutrition Intervention Change Diet Order: Continue Nutrition Support: Glucerna 1.2 at 45 ml/hr Flush 75 ml q4h. Kcal 1,296 Protein (gm) 65 Fluid (mL) 869 Goal #1 Meet at least 75% of protein and energy needs via TF Anticipated Discharge Needs: Unable to determine at this time Follow-Up By: 06/11/21 Additional Comments FU for TF tolerance <JASWINDER MERRILL - Last Filed: 06/07/21 17:12> Assessment and Plan Assessment and plan: Agree with assessment and plan as outlined by nurse practitioner as above, I have personally examined the patient, patient continues to be on the vent, family has decided to trach and PEG patient. Will be done today. Hospitalist Physical - Constitutional Vitals: Temp Pulse Resp BP Pulse Ox 97.9 F 77 23 123/53 100 06/07/21 16:00 06/07/21 16:01 06/07/21 16:01 06/07/21 16:01 06/07/21 16:01 HEART Score - HEART Score Troponin: Troponin T 0.038 ng/mL (0.00-0.029) H 05/26/21 17:08 Results - Labs CBC & Chem 7: 06/07/21 11:09 06/07/21 11:09 Labs: Laboratory Last Values WBC 21.8 K/mm3 (4.5-11.0) H 06/07/21 11:09 RBC 3.05 M/mm3 (3.65-5.03) L 06/07/21 11:09 Hgb 8.4 gm/dl (11.8-15.2) L 06/07/21 11:09 Hct 25.7 % (35.5-45.6) L 06/07/21 11:09 MCV 84 fl (84-94) 06/07/21 11:09 MCH 27 pg (28-32) L 06/07/21 11:09 MCHC 33 % (32-34) 06/07/21 11:09 RDW 14.6 % (13.2-15.2) 06/07/21 11:09 Plt Count 510 K/mm3 (140-440) H 06/07/21 11:09 Lymph % (Auto) 30.3 % (13.4-35.0) 05/26/21 17:08 [place] % (Auto) 6.1 % (0.0-7.3) 05/26/21 17:08 Eos % (Auto) 1.0 % (0.0-4.3) 05/26/21 17:08 Baso % (Auto) 0.5 % (0.0-1.8) 05/26/21 17:08 Lymph # (Auto) 3.0 K/mm3 (1.2-5.4) 05/26/21 17:08 [place] # (Auto) 0.6 K/mm3 (0.0-0.8) 05/26/21 17:08 Eos # (Auto) 0.1 K/mm3 (0.0-0.4) 05/26/21 17:08 Baso # (Auto) 0.1 K/mm3 (0.0-0.1) 05/26/21 17:08 Add Manual Diff Complete 05/27/21 02:00 Total Counted 100 05/27/21 02:00 Seg Neutrophils % Director Of Casework Department 05/27/21 02:00 Seg Neuts % (Manual) 93.0 % (40.0-70.0) H 05/27/21 02:00 Lymphocytes % (Manual) 3.0 % (13.4-35.0) L 05/27/21 02:00 Monocytes % (Manual) 4.0 % (0.0-7.3) 05/27/21 02:00 Nucleated RBC % Not Reportable 05/27/21 02:00 Seg Neutrophils # 6.1 K/mm3 (1.8-7.7) 05/26/21 17:08 Seg Neutrophils # Man 25.2 K/mm3 (1.8-7.7) H 05/27/21 02:00 Band Neutrophils # 0.0 K/mm3 05/27/21 02:00 Lymphocytes # (Manual) 0.8 K/mm3 (1.2-5.4) L 05/27/21 02:00 Abs React Lymphs (Man) 0.0 K/mm3 05/27/21 02:00 Monocytes # (Manual) 1.1 K/mm3 (0.0-0.8) H 05/27/21 02:00 Eosinophils # (Manual) 0.0 K/mm3 (0.0-0.4) 05/27/21 02:00 Basophils # (Manual) 0.0 K/mm3 (0.0-0.1) 05/27/21 02:00 Metamyelocytes # 0.0 K/mm3 05/27/21 02:00 Myelocytes # 0.0 K/mm3 05/27/21 02:00 Promyelocytes # 0.0 K/mm3 05/27/21 02:00 Blast Cells # 0.0 K/mm3 05/27/21 02:00 WBC Morphology Not Reportable 05/27/21 02:00 Hypersegmented Neuts Not Reportable 05/27/21 02:00 Hyposegmented Neuts Not Reportable 05/27/21 02:00 Hypogranular Neuts Not Reportable 05/27/21 02:00 Smudge Cells Not Reportable 05/27/21 02:00 Toxic Granulation Not Reportable 05/27/21 02:00 Toxic Vacuolation Not Reportable 05/27/21 02:00 Dohle Bodies Not Reportable 05/27/21 02:00 Pelger-Huet Anomaly Not Reportable 05/27/21 02:00 Daniel Rods Not Reportable 05/27/21 02:00 Platelet Estimate Not Reportable 05/27/21 02:00 Clumped Platelets Not Reportable 05/27/21 02:00 Plt Clumps, EDTA Not Reportable 05/27/21 02:00 Large Platelets Not Reportable 05/27/21 02:00 Giant Platelets Not Reportable 05/27/21 02:00 Platelet Satelliting Not Reportable 05/27/21 02:00 Plt Morphology Comment Not Reportable 05/27/21 02:00 RBC Morphology Normal 05/27/21 02:00 Dimorphic RBCs Not Reportable 05/27/21 02:00 Polychromasia Not Reportable 05/27/21 02:00 Hypochromasia Not Reportable 05/27/21 02:00 Poikilocytosis Not Reportable 05/27/21 02:00 Anisocytosis Not Reportable 05/27/21 02:00 Microcytosis Not Reportable 05/27/21 02:00 Macrocytosis Not Reportable 05/27/21 02:00 Spherocytes Not Reportable 05/27/21 02:00 Pappenheimer Bodies Not Reportable 05/27/21 02:00 Sickle Cells Not Reportable 05/27/21 02:00 Target Cells Not Reportable 05/27/21 02:00 Tear Drop Cells Not Reportable 05/27/21 02:00 Ovalocytes Not Reportable 05/27/21 02:00 Helmet Cells Not Reportable 05/27/21 02:00 Huert[place]-Ingalls Bodies Not Reportable 05/27/21 02:00 [place] Rings Not Reportable 05/27/21 02:00 Bernard Cells Not Reportable 05/27/21 02:00 Bite Cells Not Reportable 05/27/21 02:00 Crenated Cell Not Reportable 05/27/21 02:00 Elliptocytes Not Reportable 05/27/21 02:00 Acanthocytes (Spur) Not Reportable 05/27/21 02:00 Rouleaux Not Reportable 05/27/21 02:00 Hemoglobin C Crystals Not Reportable 05/27/21 02:00 Schistocytes Not Reportable 05/27/21 02:00 Malaria parasites Not Reportable 05/27/21 02:00 Arik Bodies Not Reportable 05/27/21 02:00 Hem Pathologist Commnt No 05/27/21 02:00 PT 13.5 Sec. (12.2-14.9) 06/06/21 20:07 INR 0.98 (0.87-1.13) 06/06/21 20:07 APTT 42.4 Sec. (24.2-36.6) H 05/26/21 17:08 D-Dimer 8255.81 ng/mlDDU (0-234) H 05/26/21 17:08 ABG pH 7.555 (7.320-7.450) H 06/01/21 04:00 POC ABG pCO2 27.6 mmHg (32.0-48.0) L 06/01/21 04:00 POC ABG pO2 65.6 mmHg (83-108) L 06/01/21 04:00 POC ABG HCO3 23.9 06/01/21 04:00 ABG O2 Saturation 94.5 (0-100) 06/01/21 04:00 POC ABG Base Excess 2.0 06/01/21 04:00 ABG Hemoglobin 9.2 (12.0-17.5) L 06/01/21 04:00 ABG Oxyhemoglobin 94.1 (94-98) 06/01/21 04:00 ABG Methemoglobin 0.3 (0.0-1.5) 06/01/21 04:00 ABG Sodium 137.4 mmol/L (136.0-145.0) 06/01/21 04:00 ABG Potassium 3.5 mmol/L (3.40-4.50) 06/01/21 04:00 ABG Chloride 111.0 mmol/L (98-107) H 06/01/21 04:00 ABG Glucose 143 mg/dL (65-95) H 06/01/21 04:00 Carboxyhemoglobin 0.1 (0.5-1.5) L 06/01/21 04:00 FiO2 % 40.0 06/01/21 04:00 Sodium 147 mmol/L (137-145) H 06/07/21 11:09 Potassium 4.2 mmol/L (3.6-5.0) 06/07/21 11:09 Chloride 112.2 mmol/L (98-107) H 06/07/21 11:09 Carbon Dioxide 27 mmol/L (22-30) 06/07/21 11:09 Anion Gap 12 mmol/L 06/07/21 11:09 BUN 27 mg/dL (9-20) H 06/07/21 11:09 Creatinine 0.5 mg/dL (0.8-1.3) L 06/07/21 11:09 Estimated GFR > 60 ml/min 06/07/21 11:09 BUN/Creatinine Ratio 54 % 06/07/21 11:09 Glucose 106 mg/dL (75-100) H 06/07/21 11:09 POC Glucose 108 mg/dL (70-105) H 06/07/21 11:41 Lactic Acid 1.60 mmol/L (0.7-2.0) 05/27/21 12:08 Calcium 7.7 mg/dL (8.4-10.2) L 06/07/21 11:09 Phosphorus 2.50 mg/dL (2.5-4.5) 06/03/21 06:20 Magnesium 2.10 mg/dL (1.7-2.3) 06/02/21 05:24 Ferritin 598.3 ng/mL (30.0-300.0) H 05/26/21 17:08 Total Bilirubin 0.50 mg/dL (0.1-1.2) 05/27/21 02:00 AST 66 units/L (5-40) H 05/27/21 02:00 ALT 64 units/L (7-56) H 05/27/21 02:00 Alkaline Phosphatase 126 units/L (35-129) 05/27/21 02:00 Ammonia 46.0 umol/L (25-60) 05/26/21 17:08 Lactate Dehydrogenase 550 units/L (91-180) H 05/26/21 17:08 Troponin T 0.038 ng/mL (0.00-0.029) H 05/26/21 17:08 C-Reactive Protein 4.20 mg/dL (0.00-1.30) H 05/26/21 17:08 Total Protein 6.6 g/dL (6.3-8.2) 05/27/21 02:00 Albumin 2.9 g/dL (3.9-5) L 05/27/21 02:00 Albumin/Globulin Ratio 0.8 % 05/27/21 02:00 Triglycerides 150 mg/dL (2-149) H 05/26/21 17:08 Cholesterol 145 mg/dL (50-199) 05/26/21 17:08 LDL Cholesterol Direct 84 mg/dL (50-130) 05/26/21 17:08 HDL Cholesterol 24 mg/dL (40-59) L 05/26/21 17:08 Cholesterol/HDL Ratio 6.04 % 05/26/21 17:08 Procalcitonin 0.29 ng/mL (<0.15) 05/26/21 17:08 TSH 0.342 mlU/mL (0.270-4.200) 05/26/21 17:08 Arterial Blood Glucose 143 mg/dL (65-95) H 06/01/21 04:00 Arterial Blood Ionized Calcium 3.7 mg/dL (4.6-5.3) L 06/01/21 04:00 Urine Color Yellow (Yellow) 06/06/21 Unknown Urine Turbidity Slightly-cloudy (Clear) 06/06/21 Unknown Urine pH 7.0 (5.0-7.0) 06/06/21 Unknown Ur Specific Onyx 1.013 (1.003-1.030) 06/06/21 Unknown Urine Protein <15 mg/dl mg/dL (Negative) 06/06/21 Unknown Urine Glucose (UA) Neg mg/dL (Negative) 06/06/21 Unknown Urine Ketones Neg mg/dL (Negative) 06/06/21 Unknown Urine Blood Sm (Negative) 06/06/21 Unknown Urine Nitrite Neg (Negative) 06/06/21 Unknown Urine Bilirubin Neg (Negative) 06/06/21 Unknown Urine Urobilinogen < 2.0 mg/dL (<2.0) 06/06/21 Unknown Ur Leukocyte Esterase Neg (Negative) 06/06/21 Unknown Urine WBC (Auto) < 1.0 /HPF (0.0-6.0) 06/06/21 Unknown Urine RBC (Auto) 4.0 /HPF (0.0-6.0) 06/06/21 Unknown U Epithel Cells (Auto) 2.0 /HPF (0-13.0) 06/06/21 Unknown Urine Bacteria (Auto) 1+ /HPF (Negative) 05/26/21 Unknown Urine Mucus Few /HPF 06/06/21 Unknown Urine Yeast (Budding) 3+ /HPF 06/06/21 Unknown Urine Osmolality 392 Mosm/kg 05/26/21 Unknown Urine Creatinine 51.6 mg/dL (0.1-20.0) H 05/26/21 Unknown Urine Sodium 96 mmol/L 05/26/21 Unknown Random Vancomycin 14.8 ug/mL (0-40.0) 05/30/21 08:29 Salicylates < 0.3 mg/dL (2.8-20.0) L 05/26/21 17:08 Acetaminophen < 5.0 ug/mL (10.0-30.0) L 05/26/21 17:08 Coronavirus (PCR) Negative (Negative) 05/27/21 Unknown Blood Type O POSITIVE 06/02/21 16:57 Antibody Screen Negative 06/02/21 16:57 Microbiology: Microbiology 06/04/21 09:56 Peripheral/Venous Blood Culture - Preliminary NO GROWTH AFTER 72 HOURS 06/04/21 15:59 Peripheral/Venous Blood Culture - Preliminary NO GROWTH AFTER 48 HOURS White/IV: Voiding Method Condom Catheter Active Medications - Current Medications Current Medications: Generic Name Dose Route Start Last Admin Trade Name Freq PRN Reason Stop Dose Admin Acetaminophen 650 mg 05/30/21 08:30 06/06/21 05:02 Acetaminophen 325 Mg/10.15 Ml Oral Liqd Unit Dose FEEDTUBE 650 mg Q6H PRN Administration Pain 1 -3, fever >100.5 Albuterol 2.5 mg 05/26/21 18:34 Albuterol 2.5 Mg/3 Ml Nebu IH Q3HRT PRN Shortness Of Breath Amlodipine Besylate 5 mg 06/03/21 10:00 06/07/21 09:54 Amlodipine 5 Mg Tab PO 5 mg QDAY ONDINA Administration Lipase/Protease/Amylase 1 each 05/28/21 08:24 06/06/21 05:10 Lipase 10,500/Protease 25,000/Amylase 43,750 (Units) Dr De Leon FEEDTUBE 1 each PRN PRN Administration For Clogged Feeding Tube Aspirin 325 mg 06/07/21 10:00 06/07/21 09:53 Aspirin 325 Mg Tab PO 325 mg QDAY ONDINA Administration Atorvastatin Calcium 40 mg 06/03/21 22:00 06/06/21 22:10 Atorvastatin 40 Mg Tab PO 40 mg QHS ONDINA Administration Famotidine 20 mg 05/28/21 10:00 06/07/21 09:54 Famotidine 20 Mg Tab PO 20 mg DAILY ONDINA Administration Finasteride 5 mg 06/03/21 10:00 06/07/21 09:54 Finasteride 5 Mg Tab PO 5 mg QDAY ONDINA Administration Heparin Sodium (Porcine) 5,000 unit 05/26/21 22:00 06/07/21 09:55 Heparin 5,000 Unit/1 Ml Vial SUB-Q 5,000 unit Q12HR ODNINA Administration Hydrophilic Ointment 1 applic 05/26/21 17:02 Lip Therapy Vaseline TP Q2HR PRN Dry Lips Multi-Ingred Cream/Lotion/Oil/Oint 1 applic 05/26/21 17:02 Mineral Oil/Petrolatum, White Ophth Oint 3.5 Gm OU Q4HR PRN Dry Eye(s) Senna/Docusate Sodium 1 tab 05/26/21 22:00 06/07/21 09:54 Sennosides/Docusate Sodium 8.6/50 Mg Tab FEEDTUBE 1 tab BID ONDINA Administration Simple Syrup 15 ml 05/28/21 08:24 Simple Syrup 15 Ml FEEDTUBE PRN PRN Hypoglycemia Simple Syrup 30 ml 05/28/21 08:24 Simple Syrup 15 Ml FEEDTUBE PRN PRN Hypoglycemia Sodium Bicarbonate 325 mg 05/28/21 08:24 06/06/21 05:10 Sodium Bicarbonate 325 Mg Tab FEEDTUBE 325 mg PRN PRN Administration For Clogged Feeding Tube Sodium Chloride 10 ml 05/26/21 22:00 06/07/21 09:55 Sodium Chloride 0.9% 10 Ml Flush Syringe IV 10 ml BID ONDINA Administration Sodium Chloride 10 ml 05/26/21 18:34 Sodium Chloride 0.9% 10 Ml Flush Syringe IV PRN PRN LINE FLUSH Tamsulosin HCl 0.8 mg 05/29/21 12:00 06/07/21 09:53 Tamsulosin 0.4 Mg Cap PO 0.8 mg QDAY ONDINA Administration Nutrition/Malnutrition Assess - Dietary Evaluation Nutrition/Malnutrition Findings: Nutrition Notes Start: 05/27/21 08: 35 Freq: Status: Active Protocol: Document 06/04/21 10:42 (Rec: 06/04/21 10:43 [email or web address]) Nutrition Notes Initial or Follow up Reassessment Current Diagnosis Acute Kidney Injury,Sepsis, Hypertension,Respiratory Failure Other Pertinent Diagnosis UTI, encephalopathy, dehydration, COVID PUI Current Diet Glucerna 1.2 at 45 ml/hr Labs/Tests 06/03: Ca 6.8 Pertinent Medications Calcium carbonate Height 5 ft 2 in Weight 45.359 kg [place] Body Weight (kg) 53.63 BMI 18.3 Weight Status Underweight Subjective/Other Information FU for TF tolerance. Pt tolerating TF at goal rate. Pt had BM yesterday. Percent of energy/protein needs met: 100%/100% Burn Absent Trauma Absent Current % PO Negligible Minimum of two criteria No physical signs of malnutrition #1 Nutrition Diagnosis Inadequate oral intake Diagnosis Progress(for reassessment Continues documentation) Is patient on ventilator? Yes Is Patient Ambulatory and/or Out of Bed No REE-([place]. Jeor-confined to bed) [phone] Calculation [facility]ations [facility] Additional Notes Protein: (1.2-2g/kg) 54-91g Fluid: 1 ml/kcal or per MD Nutrition Intervention Change Diet Order: Continue Nutrition Support: Glucerna 1.2 at 45 ml/hr Flush 75 ml q4h. Kcal 1,296 Protein (gm) 65 Fluid (mL) 869 Goal #1 Meet at least 75% of protein and energy needs via TF Anticipated Discharge Needs: Unable to determine at this time Follow-Up By: 06/11/21 Additional Comments FU for TF tolerance
[2021-06-06] MEDS ORDERED: LACTATED RINGERS 1,000 ML ONE (14:02)
[2021-06-06] MEDS ORDERED: ROCURONIUM 50 MG/5 ML INJ IV ONE (14:02)
[2021-06-06] MEDS ORDERED: SODIUM CHLORIDE 0.9% IRR 1,500 ML BOTTLE IR ONE (14:22)
[2021-06-06] MEDS ORDERED: ONDANSETRON 4 MG/2 ML INJ ONE (14:32)
[2021-06-06] MEDS ORDERED: ceFAZolin 1 GM VIAL ONE (14:32)
[2021-06-06] MEDS ORDERED: dexAMETHasone 20 MG/5 ML VIAL ONE (14:32)
--- NOTE | 2021-06-06 16:09 | Procedure Note ---
Date of procedure: 06/06/21 Pre-op diagnosis: 1) CVA 2) Chronic respiratory failure Post-op diagnosis: same Procedure: Open tracheostomy and PEG Description of procedure: Pt was placed supine on the OR table. GETA was administered. Bite block was placed between pt's gums. Endoscope was introduced into the pt's oropharynx and the esophagus intubated under direct vision. Scope was advanced into the stomach and the stomach maximally inflated. An appropriate position for PEG placement was selected. LUQ was prepped and draped. Skin and SQ tissue at the PEG site were infiltrated with 5 ml of 1% Lidocaine. A small skin incison was made and the introducer needle passed throu gh this incision and then into the stomach on the 1st pass. Guide wire was inserted into the stomach and was grasped with the snare. The guide wire and scope were then removed via the oropharynx. PEG tubing was attached to the guide wire. External traction was applied to the guide wire in the LUQ until the internal bolster was snug up against the gastric and abdominal diaz. The external bolster, clamp an plug were then positioned on the PEG tubing. Repeat gastroscopy revealed the internal bolster to be in good position with no bleeding from the gastric puncture site. The final position of the external bolster was 2 cm at the skin level. Pt's neck was then maximally extended in the mid-line. Neck and upper chest were prepped and draped. Skin and SQ tissue at the proposed incision were infiltrated with 5 ml of 1% Lidocaine with epinephrine. SQ tissue and platysma were divided with the Bovie. Strap muscles were divided in the midline. The 2nd tracheal ring was identified and an "H" shaped incision made through and adjacent to the 2nd tracheal ring. A #8 cuffed tracheostomy tube was inserted into the trachea after the ET tube had been withdrawn. The tracheostomy cuff wa s inflated. Strap muscles were approximated with interrupted sutures of 3-0 Vicryl. Platysma was approximated with interrupted sutures of 3-0 Vicryl. Skin was approximated with interrupted vertical mattress sutures of 3-0 Nylon. A sterile slitted gauze was placed behind the tracheostomy cuff and the cuff secured about the neck with a Velcro strap. Pt tolerated both procedures well. Pt was taken immediately back to ICU in stable condition. Anesthesia: GETA Surgeon: CHRISTOPHER RIVERO Estimated blood loss: minimal Pathology: none Condition: stable Disposition: ICU
--- NOTE | 2021-06-06 16:33 | Anesthesia Day of Surgery ---
Anesthesia Day of Surgery - Day of Surgery Patient Examined: Yes Patient H&P Reviewed: Yes Patient is NPO: Yes
--- NOTE | 2021-06-06 16:33 | Anesthesia Consultation ---
Anesthesia Consult and Med Hx Date of service: 06/06/21 - Airway Anesthetic Teeth Evaluation: Poor ROM Head & Neck: Adequate Mental/Hyoid Distance: Adequate Mallampati Class: Class II Intubation Access Assessment: Good - Pulmonary Exam CTA: Yes - Cardiac Exam Cardiac Exam: RRR - Pre-Operative Health Status ASA Pre-Surgery Classification: ASA4 Proposed Anesthetic Plan: General - Pulmonary Hx Respiratory Symptoms: Yes (resp failure, ) - Cardiovascular System Hx Hypertension: Yes - Central Nervous System CVA: Yes (massive CVA)
--- NOTE | 2021-06-06 16:34 | Post Anesthesia Evaluation ---
- Post Anesthesia Evaluation Patient Participated: No Airway Patent: Yes Stable Respiratory Function: Yes Nausea/Vomiting: No Temp > 96.8F: Yes Pain Manageable: Yes Adequeate Hydration: Yes Anesthesia Complications: No Block Receding Appropriately: Not Applicable Patient on Ventilator: Yes (Pt to ICU S/P trach and PEG, Pt placed back on ventilator pre RT)
[2021-06-06 20:28] LABS: Hematocrit 26.9 % (35.5-45.6); Hemoglobin 8.4 gm/dl (11.8-15.2); Mean Corpuscular HGB Conc 31 % (32-34); Mean Corpuscular Volume 85 fl (84-94); Red Blood Count 3.17 M/mm3 (3.65-5.03); Red Cell Distribution Width 15.1 % (13.2-15.2)
[2021-06-06 20:30] LABS: Platelet Count 496 K/mm3 (140-440)
[2021-06-06 20:38] LABS: INR 0.98 (0.87-1.13)
[2021-06-06 20:49] LABS: Blood Urea Nitrogen 26 mg/dL (9-20); Calcium 7.3 mg/dL (8.4-10.2); Hemolysis Index 2
[2021-06-06 20:50] LABS: BUN/Creatinine Ratio 43
--- NOTE | 2021-06-07 07:54 | Progress Note ---
Assessment and Plan 1. Acute kidney injury: Vasomotor SIXTO in the volume depletion / dehydration. CT abdomen negative for hydro. Monitor renal function. Creatinine level is better. Non-oliguric. Avoid nephrotoxic agents. Meds dosage based on GFR. 2. FEN: Hypernatremia, continue water flushes, monitor. Metabolic acidosis, improved, monitor. Monitor lytes. 3. Acute respiratory failure with hypoxia: 2/2 PNA. Intubated, on vent. 4. Pneumonia, POA: Covid test negative. Follow cultures. 5. Elevated Troponin: Monitor. 6. Hypertension: Monitor BP. Meds as appropriate. 7. 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 Followed by Neuro. Prognosis guarded. Subjective: Patient was seen and examined at the bedside. Examination: General appearance: well-developed, thin built, appears stated age, intubated, on vent HEENT: ATNC, pupils equal Neck: supple Respiratory: coarse breath sounds Cardiology: regular, S1S2, no murmur Gastrointestinal: soft, bowel sounds heard, not tender Integumentary: no rash, warm and dry Neurologic: slight grimace Ext: no edema Subjective Date of service: 06/06/21 Principal diagnosis: Ac. hypoxemic resp failure; CAP; Ac. encephalopathy; SIXTO; Sepsis; PUI COVID Objective - Vital Signs Vital signs: Vital Signs - 12hr 06/06/21 06/06/21 06/06/21 20:00 20:15 20:30 Temperature Pulse Rate 76 72 69 Pulse Rate [ 71 From Monitor] Respiratory 18 14 14 Rate Blood Pressure 137/72 131/65 126/73 O2 Sat by Pulse 100 100 100 Oximetry 06/06/21 06/06/21 06/06/21 20:45 21:00 21:15 Temperature Pulse Rate 84 85 69 Pulse Rate [ From Monitor] Respiratory 16 17 14 Rate Blood Pressure 132/72 132/72 127/64 O2 Sat by Pulse 100 100 100 Oximetry 06/06/21 06/06/21 06/06/21 21:30 21:45 22:00 Temperature 98.0 F Pulse Rate 69 77 78 Pulse Rate [ From Monitor] Respiratory 13 15 13 Rate Blood Pressure 119/58 146/69 148/70 O2 Sat by Pulse 100 100 100 Oximetry 07/18/21 07/18/21 07/18/21 22:15 22:30 22:46 Temperature Pulse Rate 80 76 74 Pulse Rate [ From Monitor] Respiratory 17 17 16 Rate Blood Pressure 126/70 126/70 111/63 O2 Sat by Pulse 100 100 100 Oximetry 06/06/21 06/06/21 06/06/21 22:52 23:00 23:15 Temperature Pulse Rate 77 79 78 Pulse Rate [ From Monitor] Respiratory 16 17 16 Rate Blood Pressure 111/63 111/63 129/67 O2 Sat by Pulse 100 100 100 Oximetry 06/06/21 06/06/21 06/06/21 23:30 23:45 23:46 Temperature Pulse Rate 78 71 80 Pulse Rate [ From Monitor] Respiratory 20 13 0 L Rate Blood Pressure 139/66 123/60 123/60 O2 Sat by Pulse 100 100 100 Oximetry 06/07/21 06/07/21 06/07/21 00:00 00:15 00:30 Temperature 98.8 F Pulse Rate 80 80 78 Pulse Rate [ 77 From Monitor] Respiratory 19 18 15 Rate Blood Pressure 121/68 112/70 113/65 O2 Sat by Pulse 100 100 100 Oximetry 06/07/21 06/07/21 06/07/21 00:45 01:00 01:16 Temperature Pulse Rate 78 79 80 Pulse Rate [ From Monitor] Respiratory 17 16 15 Rate Blood Pressure 101/65 101/65 115/64 O2 Sat by Pulse 100 100 100 Oximetry 06/07/21 06/07/21 06/07/21 01:30 01:45 02:00 Temperature Pulse Rate 78 77 83 Pulse Rate [ From Monitor] Respiratory 19 17 18 Rate Blood Pressure 115/64 135/60 140/69 O2 Sat by Pulse 100 100 100 Oximetry 06/07/21 06/07/21 06/07/21 02:15 02:30 02:45 Temperature Pulse Rate 81 81 82 Pulse Rate [ From Monitor] Respiratory 17 15 16 Rate Blood Pressure 147/69 156/67 151/67 O2 Sat by Pulse 100 100 100 Oximetry 06/07/21 06/07/21 06/07/21 03:00 03:16 03:30 Temperature Pulse Rate 85 75 80 Pulse Rate [ From Monitor] Respiratory 15 14 19 Rate Blood Pressure 132/63 111/52 130/60 O2 Sat by Pulse 100 100 100 Oximetry 06/07/21 06/07/21 06/07/21 03:45 03:48 03:54 Temperature 98.8 F Pulse Rate 80 76 Pulse Rate [ From Monitor] Respiratory 17 2 L Rate Blood Pressure 140/64 130/60 O2 Sat by Pulse 100 100 Oximetry 06/07/21 06/07/21 06/07/21 04:00 04:16 04:30 Temperature Pulse Rate 72 74 81 Pulse Rate [ 74 From Monitor] Respiratory 18 12 17 Rate Blood Pressure 109/51 106/55 131/70 O2 Sat by Pulse 100 100 100 Oximetry 06/07/21 06/07/21 06/07/21 04:45 05:00 05:15 Temperature Pulse Rate 75 82 75 Pulse Rate [ From Monitor] Respiratory 17 13 23 Rate Blood Pressure 110/57 122/67 106/59 O2 Sat by Pulse 100 100 100 Oximetry 06/07/21 06/07/21 06/07/21 05:30 05:46 06:00 Temperature Pulse Rate 79 83 74 Pulse Rate [ From Monitor] Respiratory 17 19 17 Rate Blood Pressure 106/59 108/60 117/53 O2 Sat by Pulse 100 100 100 Oximetry 06/07/21 06/07/21 06/07/21 06:16 06:30 06:46 Temperature Pulse Rate 76 73 83 Pulse Rate [ From Monitor] Respiratory 14 17 18 Rate Blood Pressure 117/53 117/53 117/53 O2 Sat by Pulse 100 100 100 Oximetry 06/07/21 06/07/21 07:00 07:08 Temperature 98.1 F Pulse Rate 81 Pulse Rate [ From Monitor] Respiratory 14 Rate Blood Pressure 116/62 O2 Sat by Pulse 100 Oximetry - Lab 06/06/21 20:07 06/06/21 20:07 Most recent lab results ABG pH 7.555 (7.320-7.450) H 06/01/21 04:00 ABG O2 Saturation 94.5 (0-100) 06/01/21 04:00 Calcium 7.3 mg/dL (8.4-10.2) L 06/06/21 20:07 Phosphorus 2.50 mg/dL (2.5-4.5) 06/03/21 06:20 Magnesium 2.10 mg/dL (1.7-2.3) 06/02/21 05:24 Urine Creatinine 51.6 mg/dL (0.1-20.0) H 05/26/21 Unknown Urine Sodium 96 mmol/L 05/26/21 Unknown Medications & Allergies - Medications Allergies/Adverse Reactions: Allergies No Known Allergies Allergy (Verified 05/29/21 18:46) Home Medications: Home Medications Medication Instructions Recorded Confirmed Last Taken Type No Known Home Medications [No 05/26/21 05/26/21 Unknown History Reported Home Medications] Active Medications: Generic Name Dose Route Start Last Admin Trade Name Freq PRN Reason Stop Dose Admin Acetaminophen 650 mg 05/30/21 08:30 06/06/21 05:02 Acetaminophen 325 Mg/10.15 Ml Oral Liqd Unit Dose FEEDTUBE 650 mg Q6H PRN Administration Pain 1 -3, fever >100.5 Albuterol 2.5 mg 05/26/21 18:34 Albuterol 2.5 Mg/3 Ml Nebu IH Q3HRT PRN Shortness Of Breath Amlodipine Besylate 5 mg 06/03/21 10:00 06/06/21 10:21 Amlodipine 5 Mg Tab PO Not Given QDAY ONDINA Lipase/Protease/Amylase 1 each 05/28/21 08:24 06/06/21 05:10 Lipase 10,500/Protease 25,000/Amylase 43,750 (Units) Dr De Leon FEEDTUBE 1 each PRN PRN Administration For Clogged Feeding Tube Aspirin 325 mg 06/04/21 10:00 06/06/21 10:21 Aspirin Ec 325 Mg Tab PO Not Given QDAY ONDINA Atorvastatin Calcium 40 mg 06/03/21 22:00 06/06/21 22:10 Atorvastatin 40 Mg Tab PO 40 mg QHS ONDINA Administration Famotidine 20 mg 05/28/21 10:00 06/06/21 10:22 Famotidine 20 Mg Tab PO Not Given DAILY ONDINA Finasteride 5 mg 06/03/21 10:00 06/06/21 10:22 Finasteride 5 Mg Tab PO Not Given QDAY ONDINA Heparin Sodium (Porcine) 5,000 unit 05/26/21 22:00 06/06/21 22:09 Heparin 5,000 Unit/1 Ml Vial SUB-Q 5,000 unit Q12HR ONDINA Administration Hydrophilic Ointment 1 applic 05/26/21 17:02 Lip Therapy Vaseline TP Q2HR PRN Dry Lips Propofol 1,000 mg in 100 mls @ 1.361 mls/hr 05/30/21 06:00 05/31/21 08:50 Diprivan 10 Mg/Ml IV 0 mcg/kg/min TITR ONDINA 0 mls/hr Titration Protocol 5 MCG/KG/MIN Multi-Ingred Cream/Lotion/Oil/Oint 1 applic 05/26/21 17:02 Mineral Oil/Petrolatum, White Ophth Oint 3.5 Gm OU Q4HR PRN Dry Eye(s) Senna/Docusate Sodium 1 tab 05/26/21 22:00 06/06/21 22:10 Sennosides/Docusate Sodium 8.6/50 Mg Tab FEEDTUBE 1 tab BID ONDINA Administration Simple Syrup 15 ml 05/28/21 08:24 Simple Syrup 15 Ml FEEDTUBE PRN PRN Hypoglycemia Simple Syrup 30 ml 05/28/21 08:24 Simple Syrup 15 Ml FEEDTUBE PRN PRN Hypoglycemia Sodium Bicarbonate 325 mg 05/28/21 08:24 06/06/21 05:10 Sodium Bicarbonate 325 Mg Tab FEEDTUBE 325 mg PRN PRN Administration For Clogged Feeding Tube Sodium Chloride 10 ml 05/26/21 22:00 06/06/21 22:10 Sodium Chloride 0.9% 10 Ml Flush Syringe IV 10 ml BID ONDINA Administration Sodium Chloride 10 ml 05/26/21 18:34 Sodium Chloride 0.9% 10 Ml Flush Syringe IV PRN PRN LINE FLUSH Tamsulosin HCl 0.8 mg 05/29/21 12:00 06/06/21 10:22 Tamsulosin 0.4 Mg Cap PO Not Given QDAY ONDINA
--- NOTE | 2021-06-07 09:41 | Progress Note ---
Assessment and Plan 1. Acute kidney injury: Vasomotor SIXTO in the volume depletion / dehydration. CT abdomen negative for hydro. Monitor renal function. Creatinine level is better. Non-oliguric. Avoid nephrotoxic agents. Meds dosage based on GFR. 2. FEN: Hypernatremia, improving, adjust water flushes as needed, monitor. Metabolic acidosis, improved, monitor. Monitor lytes. 3. Acute respiratory failure with hypoxia: 2/2 PNA. S/p Trach, on vent. 4. Pneumonia, POA: Covid test negative. 5. Elevated Troponin: Monitor. 6. Hypertension: Monitor BP. Meds as appropriate. 7. 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 Followed by Neuro. Will sign off and see patient if needed. Subjective: Patient was seen and examined at the bedside. Examination: General appearance: well-developed, thin built, appears stated age, Trached, on vent HEENT: ATNC, pupils equal Neck: Trached Respiratory: coarse breath sounds Cardiology: regular, S1S2, no murmur Gastrointestinal: soft, bowel sounds heard, not tender, PEG tube noted Integumentary: no rash, warm and dry Neurologic: slight grimace Ext: no edema Subjective Date of service: 06/07/21 Principal diagnosis: Ac. hypoxemic resp failure; CAP; Ac. encephalopathy; SIXTO; Sepsis; PUI COVID Objective - Vital Signs Vital signs: Vital Signs - 12hr 06/06/21 06/06/21 06/06/21 21:45 22:00 22:15 Temperature Pulse Rate 77 78 80 Pulse Rate [ From Monitor] Respiratory 15 13 17 Rate Blood Pressure 146/69 148/70 126/70 O2 Sat by Pulse 100 100 100 Oximetry O2 Sat by Pulse Oximetry [ Assessment] 06/06/21 06/06/21 06/06/21 22:30 22:46 22:52 Temperature Pulse Rate 76 74 77 Pulse Rate [ From Monitor] Respiratory 17 16 16 Rate Blood Pressure 126/70 111/63 111/63 O2 Sat by Pulse 100 100 100 Oximetry O2 Sat by Pulse Oximetry [ Assessment] 06/06/21 06/06/21 06/06/21 23:00 23:15 23:30 Temperature Pulse Rate 79 78 78 Pulse Rate [ From Monitor] Respiratory 17 16 20 Rate Blood Pressure 111/63 129/67 139/66 O2 Sat by Pulse 100 100 100 Oximetry O2 Sat by Pulse Oximetry [ Assessment] 06/06/21 06/06/21 06/07/21 23:45 23:46 00:00 Temperature 98.8 F Pulse Rate 71 80 80 Pulse Rate [ 77 From Monitor] Respiratory 13 0 L 19 Rate Blood Pressure 123/60 123/60 121/68 O2 Sat by Pulse 100 100 100 Oximetry O2 Sat by Pulse Oximetry [ Assessment] 06/07/21 06/07/21 06/07/21 00:15 00:30 00:45 Temperature Pulse Rate 80 78 78 Pulse Rate [ From Monitor] Respiratory 18 15 17 Rate Blood Pressure 112/70 113/65 101/65 O2 Sat by Pulse 100 100 100 Oximetry O2 Sat by Pulse Oximetry [ Assessment] 06/07/21 06/07/21 06/07/21 01:00 01:16 01:30 Temperature Pulse Rate 79 80 78 Pulse Rate [ From Monitor] Respiratory 16 15 19 Rate Blood Pressure 101/65 115/64 115/64 O2 Sat by Pulse 100 100 100 Oximetry O2 Sat by Pulse Oximetry [ Assessment] 06/07/21 06/07/21 06/07/21 01:45 02:00 02:15 Temperature Pulse Rate 77 83 81 Pulse Rate [ From Monitor] Respiratory 17 18 17 Rate Blood Pressure 135/60 140/69 147/69 O2 Sat by Pulse 100 100 100 Oximetry O2 Sat by Pulse Oximetry [ Assessment] 06/07/21 06/07/21 06/07/21 02:30 02:45 03:00 Temperature Pulse Rate 81 82 85 Pulse Rate [ From Monitor] Respiratory 15 16 15 Rate Blood Pressure 156/67 151/67 132/63 O2 Sat by Pulse 100 100 100 Oximetry O2 Sat by Pulse Oximetry [ Assessment] 06/07/21 06/07/21 06/07/21 03:16 03:30 03:45 Temperature Pulse Rate 75 80 80 Pulse Rate [ From Monitor] Respiratory 14 19 17 Rate Blood Pressure 111/52 130/60 140/64 O2 Sat by Pulse 100 100 100 Oximetry O2 Sat by Pulse Oximetry [ Assessment] 06/07/21 06/07/21 06/07/21 03:48 03:54 04:00 Temperature 98.8 F Pulse Rate 76 72 Pulse Rate [ 74 From Monitor] Respiratory 2 L 18 Rate Blood Pressure 130/60 109/51 O2 Sat by Pulse 100 100 Oximetry O2 Sat by Pulse Oximetry [ Assessment] 06/07/21 06/07/21 06/07/21 04:16 04:30 04:45 Temperature Pulse Rate 74 81 75 Pulse Rate [ From Monitor] Respiratory 12 17 17 Rate Blood Pressure 106/55 131/70 110/57 O2 Sat by Pulse 100 100 100 Oximetry O2 Sat by Pulse Oximetry [ Assessment] 06/07/21 06/07/21 06/07/21 05:00 05:15 05:30 Temperature Pulse Rate 82 75 79 Pulse Rate [ From Monitor] Respiratory 13 23 17 Rate Blood Pressure 122/67 106/59 106/59 O2 Sat by Pulse 100 100 100 Oximetry O2 Sat by Pulse Oximetry [ Assessment] 06/07/21 06/07/21 06/07/21 05:46 06:00 06:16 Temperature Pulse Rate 83 74 76 Pulse Rate [ From Monitor] Respiratory 19 17 14 Rate Blood Pressure 108/60 117/53 117/53 O2 Sat by Pulse 100 100 100 Oximetry O2 Sat by Pulse Oximetry [ Assessment] 06/07/21 06/07/21 06/07/21 06:30 06:46 07:00 Temperature Pulse Rate 73 83 81 Pulse Rate [ From Monitor] Respiratory 17 18 14 Rate Blood Pressure 117/53 117/53 116/62 O2 Sat by Pulse 100 100 100 Oximetry O2 Sat by Pulse Oximetry [ Assessment] 06/07/21 06/07/21 06/07/21 07:08 07:15 08:20 Temperature 98.1 F Pulse Rate 72 Pulse Rate [ From Monitor] Respiratory Rate Blood Pressure 127/70 O2 Sat by Pulse 100 Oximetry O2 Sat by Pulse 100 Oximetry [ Assessment] - Lab 06/06/21 20:07 06/06/21 20:07 Most recent lab results ABG pH 7.555 (7.320-7.450) H 06/01/21 04:00 ABG O2 Saturation 94.5 (0-100) 06/01/21 04:00 Calcium 7.3 mg/dL (8.4-10.2) L 06/06/21 20:07 Phosphorus 2.50 mg/dL (2.5-4.5) 06/03/21 06:20 Magnesium 2.10 mg/dL (1.7-2.3) 06/02/21 05:24 Urine Creatinine 51.6 mg/dL (0.1-20.0) H 05/26/21 Unknown Urine Sodium 96 mmol/L 05/26/21 Unknown Medications & Allergies - Medications Allergies/Adverse Reactions: Allergies No Known Allergies Allergy (Verified 05/29/21 18:46) Home Medications: Home Medications Medication Instructions Recorded Confirmed Last Taken Type No Known Home Medications [No 05/26/21 05/26/21 Unknown History Reported Home Medications] Active Medications: Generic Name Dose Route Start Last Admin Trade Name Freq PRN Reason Stop Dose Admin Acetaminophen 650 mg 05/30/21 08:30 06/06/21 05:02 Acetaminophen 325 Mg/10.15 Ml Oral Liqd Unit Dose FEEDTUBE 650 mg Q6H PRN Administration Pain 1 -3, fever >100.5 Albuterol 2.5 mg 05/26/21 18:34 Albuterol 2.5 Mg/3 Ml Nebu IH Q3HRT PRN Shortness Of Breath Amlodipine Besylate 5 mg 06/03/21 10:00 06/06/21 10:21 Amlodipine 5 Mg Tab PO Not Given QDAY ONDINA Lipase/Protease/Amylase 1 each 05/28/21 08:24 06/06/21 05:10 Lipase 10,500/Protease 25,000/Amylase 43,750 (Units) Dr De Leon FEEDTUBE 1 each PRN PRN Administration For Clogged Feeding Tube Aspirin 325 mg 06/04/21 10:00 06/06/21 10:21 Aspirin Ec 325 Mg Tab PO Not Given QDAY ONDINA Atorvastatin Calcium 40 mg 06/03/21 22:00 06/06/21 22:10 Atorvastatin 40 Mg Tab PO 40 mg QHS ONDINA Administration Famotidine 20 mg 05/28/21 10:00 06/06/21 10:22 Famotidine 20 Mg Tab PO Not Given DAILY ONDINA Finasteride 5 mg 06/03/21 10:00 06/06/21 10:22 Finasteride 5 Mg Tab PO Not Given QDAY ONDINA Heparin Sodium (Porcine) 5,000 unit 05/26/21 22:00 06/06/21 22:09 Heparin 5,000 Unit/1 Ml Vial SUB-Q 5,000 unit Q12HR ONDINA Administration Hydrophilic Ointment 1 applic 05/26/21 17:02 Lip Therapy Vaseline TP Q2HR PRN Dry Lips Multi-Ingred Cream/Lotion/Oil/Oint 1 applic 05/26/21 17:02 Mineral Oil/Petrolatum, White Ophth Oint 3.5 Gm OU Q4HR PRN Dry Eye(s) Senna/Docusate Sodium 1 tab 05/26/21 22:00 06/06/21 22:10 Sennosides/Docusate Sodium 8.6/50 Mg Tab FEEDTUBE 1 tab BID ONDINA Administration Simple Syrup 15 ml 05/28/21 08:24 Simple Syrup 15 Ml FEEDTUBE PRN PRN Hypoglycemia Simple Syrup 30 ml 05/28/21 08:24 Simple Syrup 15 Ml FEEDTUBE PRN PRN Hypoglycemia Sodium Bicarbonate 325 mg 05/28/21 08:24 06/06/21 05:10 Sodium Bicarbonate 325 Mg Tab FEEDTUBE 325 mg PRN PRN Administration For Clogged Feeding Tube Sodium Chloride 10 ml 05/26/21 22:00 06/06/21 22:10 Sodium Chloride 0.9% 10 Ml Flush Syringe IV 10 ml BID ONDINA Administration Sodium Chloride 10 ml 05/26/21 18:34 Sodium Chloride 0.9% 10 Ml Flush Syringe IV PRN PRN LINE FLUSH Tamsulosin HCl 0.8 mg 05/29/21 12:00 06/06/21 10:22 Tamsulosin 0.4 Mg Cap PO Not Given QDAY ONDINA
[2021-06-07] MEDS: TAMSULOSIN 0.4 MG CAP PO SCH (09:53)
[2021-06-07] MEDS: amLODIPine 5 MG TAB PO SCH (09:54)
[2021-06-07] MEDS: FINASTERIDE 5 MG TAB PO SCH (09:54)
[2021-06-07] MEDS: FAMOTIDINE 20 MG TAB PO SCH (09:54)
[2021-06-07] MEDS: SENNOSIDES/DOCUSATE SODIUM 8.6/50 MG TAB FEEDTUBE SCH (09:54)
[2021-06-07] MEDS: HEPARIN 5,000 UNIT/1 ML VIAL SUB-Q SCH (09:55)
[2021-06-07] MEDS ORDERED: ASPIRIN 325 MG TAB PO SCH (10:00)
--- NOTE | 2021-06-07 11:08 | Progress Note ---
Assessment and Plan Acute hypoxemic respiratory failure on MVS Bilateral pneumonia (CAP) Acute toxic metabolic encephalopathy Severe sepsis Acute kidney injury Hypertensive urgency Elevated serum D-dimer Adult failure to thrive Mild metabolic acidosis Hyperchloremia Lactic acidosis Elevated serum inflammatory markers to include ferritin, D-dimers, and LDH PUI COVID-19 infection - continue bronchodilators with routine trach care & pulmonary hygiene per RT - repeat Mg & PO4 level in am - RN asked to place Meplex to pressure points - LTAC evaluation ongoing - continue care as below otherwise; - continue to wean supplemental oxygen for target O2 sat's > 90% acutely - VAP bundle addressed - continue lung protective strategies - continue Daily SAT and SBT assessment as tolerated - wean per pulmonary driven protocols otherwise - continue accuchecks with glycemic control per SSI (While critically ill target blood glucose of 140-180 mg/dL; avoid hypoglycemia) - sedation prn for target RASS 0 to -1 - avoid nephrotoxins, renally dose all medications - continue to avoid benzodiazepine's, reduce the possibility of delirium - complete AB's per ID rec's - prn analgesia per CPOT score - Maintenance of sleep-wake cycle, avoid delirium - continue enteral nutritional support at goal rate as tolerated - G.I. & VTE prophylaxis - PT/OT/ROM exercises - continue mobility protocols for pressure ulcer prophylaxis - Monitor hemodynamics closely - continue other care per attending / other consultants - discharge planning ongoing concurrently COVID SPECIFIC INTERVENTIONS: - COVID-19 PCR negative .... Re-evaluate in am & prn CONDITION: CRITICAL PROGNOSIS: GUARDED CODE STATUS: FULL CODE The high probability of a clinically significant, sudden or life-threatening deterioration of the [respiratory, cardiovascular, renal & neurologic] system(s) required my full and direct attention, intervention and personal management. The aggregate critical care time was [36] minutes without overlap. Time includes spent on; [x] Data Review and interpretation [x] Patient assessment and monitoring of vital signs [x] Documentation [x] Medication orders and management Subjective Date of service: 06/07/21 Principal diagnosis: Ac. hypoxemic resp failure; CAP; Ac. encephalopathy; SIXTO; Sepsis; PUI COVID Interval history: Patient is seen today for: Ac. hypoxemic resp failure; CAP; Acute encephalopath y; SIXTO; Severe sepsis; PUI COVID-19 infection Seen and examined at bedside; 24hour events reviewed; nursing and respiratory care staff consulted; no adverse overnight events reported to me; resting in bed; remains on MVS; s/p trach and PEG; AMS is persistent; on SBT and tolerating well; afebrile; No emesis or overt aspiration Objective Vital Signs - 12hr 06/06/21 06/06/21 06/06/21 23:15 23:30 23:45 Temperature Pulse Rate 78 78 71 Pulse Rate [ From Monitor] Respiratory 16 20 13 Rate Blood Pressure 129/67 139/66 123/60 O2 Sat by Pulse 100 100 100 Oximetry O2 Sat by Pulse Oximetry [ Assessment] 06/06/21 06/07/21 06/07/21 23:46 00:00 00:15 Temperature 98.8 F Pulse Rate 80 80 80 Pulse Rate [ 77 From Monitor] Respiratory 0 L 19 18 Rate Blood Pressure 123/60 121/68 112/70 O2 Sat by Pulse 100 100 100 Oximetry O2 Sat by Pulse Oximetry [ Assessment] 06/07/21 06/07/21 06/07/21 00:30 00:45 01:00 Temperature Pulse Rate 78 78 79 Pulse Rate [ From Monitor] Respiratory 15 17 16 Rate Blood Pressure 113/65 101/65 101/65 O2 Sat by Pulse 100 100 100 Oximetry O2 Sat by Pulse Oximetry [ Assessment] 06/07/21 06/07/21 06/07/21 01:16 01:30 01:45 Temperature Pulse Rate 80 78 77 Pulse Rate [ From Monitor] Respiratory 15 19 17 Rate Blood Pressure 115/64 115/64 135/60 O2 Sat by Pulse 100 100 100 Oximetry O2 Sat by Pulse Oximetry [ Assessment] 06/07/21 06/07/21 06/07/21 02:00 02:15 02:30 Temperature Pulse Rate 83 81 81 Pulse Rate [ From Monitor] Respiratory 18 17 15 Rate Blood Pressure 140/69 147/69 156/67 O2 Sat by Pulse 100 100 100 Oximetry O2 Sat by Pulse Oximetry [ Assessment] 06/07/21 06/07/21 06/07/21 02:45 03:00 03:16 Temperature Pulse Rate 82 85 75 Pulse Rate [ From Monitor] Respiratory 16 15 14 Rate Blood Pressure 151/67 132/63 111/52 O2 Sat by Pulse 100 100 100 Oximetry O2 Sat by Pulse Oximetry [ Assessment] 06/07/21 06/07/21 06/07/21 03:30 03:45 03:48 Temperature Pulse Rate 80 80 76 Pulse Rate [ From Monitor] Respiratory 19 17 2 L Rate Blood Pressure 130/60 140/64 130/60 O2 Sat by Pulse 100 100 100 Oximetry O2 Sat by Pulse Oximetry [ Assessment] 06/07/21 06/07/21 06/07/21 03:54 04:00 04:16 Temperature 98.8 F Pulse Rate 72 74 Pulse Rate [ 74 From Monitor] Respiratory 18 12 Rate Blood Pressure 109/51 106/55 O2 Sat by Pulse 100 100 Oximetry O2 Sat by Pulse Oximetry [ Assessment] 06/07/21 06/07/21 06/07/21 04:30 04:45 05:00 Temperature Pulse Rate 81 75 82 Pulse Rate [ From Monitor] Respiratory 17 17 13 Rate Blood Pressure 131/70 110/57 122/67 O2 Sat by Pulse 100 100 100 Oximetry O2 Sat by Pulse Oximetry [ Assessment] 06/07/21 06/07/21 06/07/21 05:15 05:30 05:46 Temperature Pulse Rate 75 79 83 Pulse Rate [ From Monitor] Respiratory 23 17 19 Rate Blood Pressure 106/59 106/59 108/60 O2 Sat by Pulse 100 100 100 Oximetry O2 Sat by Pulse Oximetry [ Assessment] 06/07/21 06/07/21 06/07/21 06:00 06:16 06:30 Temperature Pulse Rate 74 76 73 Pulse Rate [ From Monitor] Respiratory 17 14 17 Rate Blood Pressure 117/53 117/53 117/53 O2 Sat by Pulse 100 100 100 Oximetry O2 Sat by Pulse Oximetry [ Assessment] 06/07/21 06/07/21 06/07/21 06:46 07:00 07:08 Temperature 98.1 F Pulse Rate 83 81 Pulse Rate [ From Monitor] Respiratory 18 14 Rate Blood Pressure 117/53 116/62 O2 Sat by Pulse 100 100 Oximetry O2 Sat by Pulse Oximetry [ Assessment] 06/07/21 06/07/21 06/07/21 07:15 08:20 09:54 Temperature Pulse Rate 72 76 Pulse Rate [ From Monitor] Respiratory Rate Blood Pressure 127/70 137/67 O2 Sat by Pulse 100 Oximetry O2 Sat by Pulse 100 Oximetry [ Assessment] Constitutional: no acute distress, other (elderly male on MVS with mildly increased respiratory effort at rest) Eyes: non-icteric ENT: oropharynx moist Neck: supple, no lymphadenopathy, no JVD, other (+ midline tracheostomy with mild bleeding) Effort: normal Ascultation: Bilateral: diminished breath sounds, rhonchi (scant) Percussion: Bilateral: not dull Cardiovascular: regular rate and rhythm, other (S1,S2) Gastrointestinal: normoactive bowel sounds, soft, non-tender, non-distended Integumentary: normal Extremities: no cyanosis, no edema, pulses normal, no ischemia or petechiae Neurologic: pupils equal and round, other (encephalopathic) Psychiatric: other (unable to assess) CBC and BMP: 06/07/21 11:09 06/07/21 11:09 ABG, PT/INR, D-dimer: ABG ABG pH 7.555 (7.320-7.450) H 06/01/21 04:00 POC ABG pCO2 27.6 mmHg (32.0-48.0) L 06/01/21 04:00 POC ABG pO2 65.6 mmHg (83-108) L 06/01/21 04:00 POC ABG HCO3 23.9 06/01/21 04:00 ABG O2 Saturation 94.5 (0-100) 06/01/21 04:00 PT/INR, D-dimer PT 13.5 Sec. (12.2-14.9) 06/06/21 20:07 INR 0.98 (0.87-1.13) 06/06/21 20:07 D-Dimer 8255.81 ng/mlDDU (0-234) H 05/26/21 17:08 Abnormal lab findings: Abnormal Labs 05/26/21 05/26/21 05/26/21 17:08 17:08 17:08 WBC RBC Hgb Hct MCV MCH MCHC 31 L RDW 16.2 H Plt Count 80 L Seg Neuts % (Manual) Lymphocytes % (Manual) Seg Neutrophils # Man Lymphocytes # (Manual) Monocytes # (Manual) APTT 42.4 H D-Dimer 8255.81 H ABG pH POC ABG pCO2 POC ABG pO2 ABG Hemoglobin ABG Oxyhemoglobin ABG Sodium ABG Chloride ABG Glucose Carboxyhemoglobin Sodium 180 H* Potassium Chloride 140 H Carbon Dioxide 21 L BUN 118 H Creatinine 5.4 H Glucose 133 H POC Glucose Lactic Acid Calcium 8.1 L Phosphorus Magnesium Ferritin AST 97 H ALT 71 H Alkaline Phosphatase 138 H Lactate Dehydrogenase 550 H Troponin T 0.038 H C-Reactive Protein 4.20 H Albumin 3.3 L Triglycerides 150 H HDL Cholesterol 24 L Arterial Blood Glucose Arterial Blood Ionized Calcium Urine WBC (Auto) Urine Creatinine Salicylates Acetaminophen 05/26/21 05/26/21 05/26/21 17:08 17:08 17:08 WBC RBC Hgb Hct MCV MCH MCHC RDW Plt Count Seg Neuts % (Manual) Lymphocytes % (Manual) Seg Neutrophils # Man Lymphocytes # (Manual) Monocytes # (Manual) APTT D-Dimer ABG pH POC ABG pCO2 POC ABG pO2 ABG Hemoglobin ABG Oxyhemoglobin ABG Sodium ABG Chloride ABG Glucose Carboxyhemoglobin Sodium Potassium Chloride Carbon Dioxide BUN Creatinine Glucose POC Glucose Lactic Acid 3.90 H* Calcium Phosphorus Magnesium Ferritin 598.3 H AST ALT Alkaline Phosphatase Lactate Dehydrogenase Troponin T C-Reactive Protein Albumin Triglycerides HDL Cholesterol Arterial Blood Glucose Arterial Blood Ionized Calcium Urine WBC (Auto) Urine Creatinine Salicylates Acetaminophen < 5.0 L 05/26/21 05/26/21 05/26/21 17:08 17:27 23:28 WBC RBC Hgb Hct MCV MCH MCHC RDW Plt Count Seg Neuts % (Manual) Lymphocytes % (Manual) Seg Neutrophils # Man Lymphocytes # (Manual) Monocytes # (Manual) APTT D-Dimer ABG pH POC ABG pCO2 POC ABG pO2 453.5 H ABG Hemoglobin 11.5 L ABG Oxyhemoglobin 98.7 H ABG Sodium 198.2 H ABG Chloride ABG Glucose 116 H Carboxyhemoglobin 0.3 L Sodium Potassium Chloride Carbon Dioxide BUN Creatinine Glucose POC Glucose 182 H Lactic Acid Calcium Phosphorus Magnesium Ferritin AST ALT Alkaline Phosphatase Lactate Dehydrogenase Troponin T C-Reactive Protein Albumin Triglycerides HDL Cholesterol Arterial Blood Glucose 116 H Arterial Blood Ionized Calcium Urine WBC (Auto) Urine Creatinine Salicylates < 0.3 L Acetaminophen 05/26/21 05/26/21 05/27/21 Unknown Unknown 01:58 WBC RBC Hgb Hct MCV MCH MCHC RDW Plt Count Seg Neuts % (Manual) Lymphocytes % (Manual) Seg Neutrophils # Man Lymphocytes # (Manual) Monocytes # (Manual) APTT D-Dimer ABG pH POC ABG pCO2 POC ABG pO2 ABG Hemoglobin ABG Oxyhemoglobin ABG Sodium ABG Chloride ABG Glucose Carboxyhemoglobin Sodium Potassium Chloride Carbon Dioxide BUN Creatinine Glucose POC Glucose Lactic Acid 2.90 H* Calcium Phosphorus Magnesium Ferritin AST ALT Alkaline Phosphatase Lactate Dehydrogenase Troponin T C-Reactive Protein Albumin Triglycerides HDL Cholesterol Arterial Blood Glucose Arterial Blood Ionized Calcium Urine WBC (Auto) 16.0 H Urine Creatinine 51.6 H Salicylates Acetaminophen 05/27/21 05/27/21 05/27/21 02:00 02:00 03:19 WBC 27.1 H RBC Hgb 11.1 L Hct MCV MCH 27 L MCHC 31 L RDW 16.1 H Plt Count 62 L Seg Neuts % (Manual) 93.0 H Lymphocytes % (Manual) 3.0 L Seg Neutrophils # Man 25.2 H Lymphocytes # (Manual) 0.8 L Monocytes # (Manual) 1.1 H APTT D-Dimer ABG pH POC ABG pCO2 31.7 L POC ABG pO2 79.5 L ABG Hemoglobin 10.9 L ABG Oxyhemoglobin ABG Sodium 181.4 H ABG Chloride ABG Glucose 276 H Carboxyhemoglobin 0.1 L Sodium 180 H* Potassium Chloride 140 H Carbon Dioxide 19 L BUN 100 H Creatinine 4.3 H Glucose 272 H POC Glucose Lactic Acid Calcium 7.0 L Phosphorus 5.00 H Magnesium Ferritin AST 66 H ALT 64 H Alkaline Phosphatase Lactate Dehydrogenase Troponin T C-Reactive Protein Albumin 2.9 L Triglycerides HDL Cholesterol Arterial Blood Glucose 276 H Arterial Blood Ionized Calcium 4.1 L Urine WBC (Auto) Urine Creatinine Salicylates Acetaminophen 05/27/21 05/27/21 05/27/21 08:22 08:22 12:08 WBC RBC Hgb Hct MCV MCH MCHC RDW Plt Count Seg Neuts % (Manual) Lymphocytes % (Manual) Seg Neutrophils # Man Lymphocytes # (Manual) Monocytes # (Manual) APTT D-Dimer ABG pH POC ABG pCO2 POC ABG pO2 ABG Hemoglobin ABG Oxyhemoglobin ABG Sodium ABG Chloride ABG Glucose Carboxyhemoglobin Sodium 179 H* Potassium Chloride > 139 H Carbon Dioxide 21 L 19 L BUN 103 H 105 H Creatinine 4.2 H 4.2 H Glucose 271 H 217 H POC Glucose Lactic Acid 2.20 H* Calcium 7.3 L 7.0 L Phosphorus Magnesium Ferritin AST ALT Alkaline Phosphatase Lactate Dehydrogenase Troponin T C-Reactive Protein Albumin Triglycerides HDL Cholesterol Arterial Blood Glucose Arterial Blood Ionized Calcium Urine WBC (Auto) Urine Creatinine Salicylates Acetaminophen 07/08/21 07/08/21 07/08/21 12:14 18:03 23:15 WBC RBC Hgb Hct MCV MCH MCHC RDW Plt Count Seg Neuts % (Manual) Lymphocytes % (Manual) Seg Neutrophils # Man Lymphocytes # (Manual) Monocytes # (Manual) APTT D-Dimer ABG pH POC ABG pCO2 POC ABG pO2 ABG Hemoglobin ABG Oxyhemoglobin ABG Sodium ABG Chloride ABG Glucose Carboxyhemoglobin Sodium Potassium Chloride Carbon Dioxide BUN Creatinine Glucose POC Glucose 184 H 183 H 191 H Lactic Acid Calcium Phosphorus Magnesium Ferritin AST ALT Alkaline Phosphatase Lactate Dehydrogenase Troponin T C-Reactive Protein Albumin Triglycerides HDL Cholesterol Arterial Blood Glucose Arterial Blood Ionized Calcium Urine WBC (Auto) Urine Creatinine Salicylates Acetaminophen 05/28/21 05/28/21 05/28/21 03:19 05:15 08:47 WBC RBC Hgb Hct MCV MCH MCHC RDW Plt Count Seg Neuts % (Manual) Lymphocytes % (Manual) Seg Neutrophils # Man Lymphocytes # (Manual) Monocytes # (Manual) APTT D-Dimer ABG pH POC ABG pCO2 29.6 L POC ABG pO2 115.2 H ABG Hemoglobin 10.2 L ABG Oxyhemoglobin ABG Sodium 153.6 H ABG Chloride 129.0 H ABG Glucose 215 H Carboxyhemoglobin 0.3 L Sodium 159 H D Potassium Chloride 123.7 H Carbon Dioxide 20 L BUN 88 H Creatinine 2.9 H Glucose 177 H POC Glucose 184 H Lactic Acid Calcium 6.3 L Phosphorus Magnesium Ferritin AST ALT Alkaline Phosphatase Lactate Dehydrogenase Troponin T C-Reactive Protein Albumin Triglycerides HDL Cholesterol Arterial Blood Glucose 215 H Arterial Blood Ionized Calcium 3.7 L Urine WBC (Auto) Urine Creatinine Salicylates Acetaminophen 05/28/21 05/28/21 05/28/21 11:50 16:27 17:23 WBC RBC Hgb Hct MCV MCH MCHC RDW Plt Count Seg Neuts % (Manual) Lymphocytes % (Manual) Seg Neutrophils # Man Lymphocytes # (Manual) Monocytes # (Manual) APTT D-Dimer ABG pH POC ABG pCO2 POC ABG pO2 ABG Hemoglobin ABG Oxyhemoglobin ABG Sodium ABG Chloride ABG Glucose Carboxyhemoglobin Sodium 154 H Potassium Chloride Carbon Dioxide BUN Creatinine Glucose POC Glucose 130 H 113 H Lactic Acid Calcium Phosphorus Magnesium Ferritin AST ALT Alkaline Phosphatase Lactate Dehydrogenase Troponin T C-Reactive Protein Albumin Triglycerides HDL Cholesterol Arterial Blood Glucose Arterial Blood Ionized Calcium Urine WBC (Auto) Urine Creatinine Salicylates Acetaminophen 05/28/21 05/29/21 05/29/21 23:28 02:59 04:15 WBC RBC Hgb Hct MCV MCH MCHC RDW Plt Count Seg Neuts % (Manual) Lymphocytes % (Manual) Seg Neutrophils # Man Lymphocytes # (Manual) Monocytes # (Manual) APTT D-Dimer ABG pH 7.481 H POC ABG pCO2 24.6 L POC ABG pO2 ABG Hemoglobin 10.6 L ABG Oxyhemoglobin ABG Sodium 149.5 H ABG Chloride 122.0 H ABG Glucose 129 H Carboxyhemoglobin 0.3 L Sodium 159 H Potassium Chloride 124.0 H Carbon Dioxide 21 L BUN 88 H Creatinine 2.4 H Glucose 136 H POC Glucose 139 H Lactic Acid Calcium 6.8 L Phosphorus Magnesium Ferritin AST ALT Alkaline Phosphatase Lactate Dehydrogenase Troponin T C-Reactive Protein Albumin Triglycerides HDL Cholesterol Arterial Blood Glucose 129 H Arterial Blood Ionized Calcium 3.8 L Urine WBC (Auto) Urine Creatinine Salicylates Acetaminophen 05/29/21 05/29/21 05/29/21 05:13 15:35 18:05 WBC RBC Hgb Hct MCV MCH MCHC RDW Plt Count Seg Neuts % (Manual) Lymphocytes % (Manual) Seg Neutrophils # Man Lymphocytes # (Manual) Monocytes # (Manual) APTT D-Dimer ABG pH POC ABG pCO2 POC ABG pO2 ABG Hemoglobin ABG Oxyhemoglobin ABG Sodium ABG Chloride ABG Glucose Carboxyhemoglobin Sodium 160 H Potassium Chloride 124.8 H Carbon Dioxide 20 L BUN 83 H Creatinine 1.9 H Glucose 147 H POC Glucose 138 H 141 H Lactic Acid Calcium 7.1 L Phosphorus Magnesium Ferritin AST ALT Alkaline Phosphatase Lactate Dehydrogenase Troponin T C-Reactive Protein Albumin Triglycerides HDL Cholesterol Arterial Blood Glucose Arterial Blood Ionized Calcium Urine WBC (Auto) Urine Creatinine Salicylates Acetaminophen 05/29/21 05/30/21 05/30/21 23:22 01:20 04:33 WBC RBC Hgb Hct MCV MCH MCHC RDW Plt Count Seg Neuts % (Manual) Lymphocytes % (Manual) Seg Neutrophils # Man Lymphocytes # (Manual) Monocytes # (Manual) APTT D-Dimer ABG pH 7.484 H POC ABG pCO2 24.6 L POC ABG pO2 131.2 H ABG Hemoglobin 11.7 L ABG Oxyhemoglobin 98.1 H ABG Sodium 155.7 H ABG Chloride 126.0 H ABG Glucose 191 H Carboxyhemoglobin 0.1 L Sodium 162 H* Potassium Chloride 129.0 H Carbon Dioxide 19 L BUN 89 H Creatinine 2.1 H Glucose 190 H POC Glucose 160 H Lactic Acid Calcium 7.4 L Phosphorus Magnesium Ferritin AST ALT Alkaline Phosphatase Lactate Dehydrogenase Troponin T C-Reactive Protein Albumin Triglycerides HDL Cholesterol Arterial Blood Glucose 191 H Arterial Blood Ionized Calcium 4.1 L Urine WBC (Auto) Urine Creatinine Salicylates Acetaminophen 05/30/21 05/30/21 05/30/21 05:21 15:25 17:59 WBC RBC Hgb Hct MCV MCH MCHC RDW Plt Count Seg Neuts % (Manual) Lymphocytes % (Manual) Seg Neutrophils # Man Lymphocytes # (Manual) Monocytes # (Manual) APTT D-Dimer ABG pH POC ABG pCO2 POC ABG pO2 ABG Hemoglobin ABG Oxyhemoglobin ABG Sodium ABG Chloride ABG Glucose Carboxyhemoglobin Sodium 161 H* Potassium 3.4 L Chloride 131.7 H Carbon Dioxide 18 L BUN 77 H Creatinine 1.5 H Glucose 200 H POC Glucose 169 H 147 H Lactic Acid Calcium 7.2 L Phosphorus Magnesium Ferritin AST ALT Alkaline Phosphatase Lactate Dehydrogenase Troponin T C-Reactive Protein Albumin Triglycerides HDL Cholesterol Arterial Blood Glucose Arterial Blood Ionized Calcium Urine WBC (Auto) Urine Creatinine Salicylates Acetaminophen 05/30/21 05/31/21 05/31/21 23:34 04:33 05:29 WBC RBC Hgb Hct MCV MCH MCHC RDW Plt Count Seg Neuts % (Manual) Lymphocytes % (Manual) Seg Neutrophils # Man Lymphocytes # (Manual) Monocytes # (Manual) APTT D-Dimer ABG pH POC ABG pCO2 POC ABG pO2 ABG Hemoglobin ABG Oxyhemoglobin ABG Sodium ABG Chloride ABG Glucose Carboxyhemoglobin Sodium 154 H Potassium Chloride 123.6 H Carbon Dioxide 19 L BUN 52 H Creatinine Glucose 139 H POC Glucose 153 H 132 H Lactic Acid Calcium 7.1 L Phosphorus 2.30 L Magnesium Ferritin AST ALT Alkaline Phosphatase Lactate Dehydrogenase Troponin T C-Reactive Protein Albumin Triglycerides HDL Cholesterol Arterial Blood Glucose Arterial Blood Ionized Calcium Urine WBC (Auto) Urine Creatinine Salicylates Acetaminophen 05/31/21 05/31/21 05/31/21 11:47 15:23 17:18 WBC RBC Hgb Hct MCV MCH MCHC RDW Plt Count Seg Neuts % (Manual) Lymphocytes % (Manual) Seg Neutrophils # Man Lymphocytes # (Manual) Monocytes # (Manual) APTT D-Dimer ABG pH POC ABG pCO2 POC ABG pO2 ABG Hemoglobin ABG Oxyhemoglobin ABG Sodium ABG Chloride ABG Glucose Carboxyhemoglobin Sodium 149 H Potassium 3.4 L D Chloride 117.7 H Carbon Dioxide 21 L BUN 40 H Creatinine Glucose 139 H POC Glucose 114 H 108 H Lactic Acid Calcium 7.0 L Phosphorus Magnesium Ferritin AST ALT Alkaline Phosphatase Lactate Dehydrogenase Troponin T C-Reactive Protein Albumin Triglycerides HDL Cholesterol Arterial Blood Glucose Arterial Blood Ionized Calcium Urine WBC (Auto) Urine Creatinine Salicylates Acetaminophen 05/31/21 06/01/21 06/01/21 23:13 04:00 05:50 WBC RBC Hgb Hct MCV MCH MCHC RDW Plt Count Seg Neuts % (Manual) Lymphocytes % (Manual) Seg Neutrophils # Man Lymphocytes # (Manual) Monocytes # (Manual) APTT D-Dimer ABG pH 7.555 H POC ABG pCO2 27.6 L POC ABG pO2 65.6 L ABG Hemoglobin 9.2 L ABG Oxyhemoglobin ABG Sodium ABG Chloride 111.0 H ABG Glucose 143 H Carboxyhemoglobin 0.1 L Sodium Potassium Chloride Carbon Dioxide BUN Creatinine Glucose POC Glucose 126 H 121 H Lactic Acid Calcium Phosphorus Magnesium Ferritin AST ALT Alkaline Phosphatase Lactate Dehydrogenase Troponin T C-Reactive Protein Albumin Triglycerides HDL Cholesterol Arterial Blood Glucose 143 H Arterial Blood Ionized Calcium 3.7 L Urine WBC (Auto) Urine Creatinine Salicylates Acetaminophen 06/01/21 06/01/21 06/01/21 10:10 10:10 11:35 WBC 17.6 H RBC Hgb Hct MCV MCH 27 L MCHC RDW Plt Count 105 L Seg Neuts % (Manual) Lymphocytes % (Manual) Seg Neutrophils # Man Lymphocytes # (Manual) Monocytes # (Manual) APTT D-Dimer ABG pH POC ABG pCO2 POC ABG pO2 ABG Hemoglobin ABG Oxyhemoglobin ABG Sodium ABG Chloride ABG Glucose Carboxyhemoglobin Sodium Potassium 3.5 L Chloride Carbon Dioxide BUN 30 H Creatinine Glucose 137 H POC Glucose 112 H Lactic Acid Calcium 7.1 L Phosphorus 1.80 L D Magnesium 1.40 L Ferritin AST ALT Alkaline Phosphatase Lactate Dehydrogenase Troponin T C-Reactive Protein Albumin Triglycerides HDL Cholesterol Arterial Blood Glucose Arterial Blood Ionized Calcium Urine WBC (Auto) Urine Creatinine Salicylates Acetaminophen 06/01/21 06/02/21 06/02/21 17:41 05:24 09:50 WBC 17.1 H RBC 3.14 L Hgb 8.5 L D Hct 25.6 L D MCV 82 L MCH 27 L MCHC RDW Plt Count 124 L Seg Neuts % (Manual) Lymphocytes % (Manual) Seg Neutrophils # Man Lymphocytes # (Manual) Monocytes # (Manual) APTT D-Dimer ABG pH POC ABG pCO2 POC ABG pO2 ABG Hemoglobin ABG Oxyhemoglobin ABG Sodium ABG Chloride ABG Glucose Carboxyhemoglobin Sodium Potassium Chloride 108.1 H Carbon Dioxide BUN 31 H Creatinine 0.7 L Glucose 128 H POC Glucose 125 H Lactic Acid Calcium 6.1 L Phosphorus Magnesium Ferritin AST ALT Alkaline Phosphatase Lactate Dehydrogenase Troponin T C-Reactive Protein Albumin Triglycerides HDL Cholesterol Arterial Blood Glucose Arterial Blood Ionized Calcium Urine WBC (Auto) Urine Creatinine Salicylates Acetaminophen 06/02/21 06/03/21 06/03/21 18:43 00:25 05:43 WBC RBC Hgb Hct MCV MCH MCHC RDW Plt Count Seg Neuts % (Manual) Lymphocytes % (Manual) Seg Neutrophils # Man Lymphocytes # (Manual) Monocytes # (Manual) APTT D-Dimer ABG pH POC ABG pCO2 POC ABG pO2 ABG Hemoglobin ABG Oxyhemoglobin ABG Sodium ABG Chloride ABG Glucose Carboxyhemoglobin Sodium Potassium Chloride Carbon Dioxide BUN Creatinine Glucose POC Glucose 111 H 124 H 127 H Lactic Acid Calcium Phosphorus Magnesium Ferritin AST ALT Alkaline Phosphatase Lactate Dehydrogenase Troponin T C-Reactive Protein Albumin Triglycerides HDL Cholesterol Arterial Blood Glucose Arterial Blood Ionized Calcium Urine WBC (Auto) Urine Creatinine Salicylates Acetaminophen 06/03/21 06/03/21 06/03/21 06:20 06:20 17:46 WBC 19.4 H RBC 3.24 L Hgb 8.7 L Hct 26.7 L MCV 82 L MCH 27 L MCHC RDW Plt Count Seg Neuts % (Manual) Lymphocytes % (Manual) Seg Neutrophils # Man Lymphocytes # (Manual) Monocytes # (Manual) APTT D-Dimer ABG pH POC ABG pCO2 POC ABG pO2 ABG Hemoglobin ABG Oxyhemoglobin ABG Sodium ABG Chloride ABG Glucose Carboxyhemoglobin Sodium Potassium Chloride 108.1 H Carbon Dioxide BUN 31 H Creatinine 0.6 L Glucose 126 H POC Glucose 125 H Lactic Acid Calcium 6.8 L Phosphorus Magnesium Ferritin AST ALT Alkaline Phosphatase Lactate Dehydrogenase Troponin T C-Reactive Protein Albumin Triglycerides HDL Cholesterol Arterial Blood Glucose Arterial Blood Ionized Calcium Urine WBC (Auto) Urine Creatinine Salicylates Acetaminophen 06/03/21 06/04/21 06/04/21 23:27 17:29 23:11 WBC RBC Hgb Hct MCV MCH MCHC RDW Plt Count Seg Neuts % (Manual) Lymphocytes % (Manual) Seg Neutrophils # Man Lymphocytes # (Manual) Monocytes # (Manual) APTT D-Dimer ABG pH POC ABG pCO2 POC ABG pO2 ABG Hemoglobin ABG Oxyhemoglobin ABG Sodium ABG Chloride ABG Glucose Carboxyhemoglobin Sodium Potassium Chloride Carbon Dioxide BUN Creatinine Glucose POC Glucose 125 H 116 H 126 H Lactic Acid Calcium Phosphorus Magnesium Ferritin AST ALT Alkaline Phosphatase Lactate Dehydrogenase Troponin T C-Reactive Protein Albumin Triglycerides HDL Cholesterol Arterial Blood Glucose Arterial Blood Ionized Calcium Urine WBC (Auto) Urine Creatinine Salicylates Acetaminophen 06/05/21 06/05/21 06/05/21 02:03 04:59 05:07 WBC RBC Hgb Hct MCV MCH MCHC RDW Plt Count Seg Neuts % (Manual) Lymphocytes % (Manual) Seg Neutrophils # Man Lymphocytes # (Manual) Monocytes # (Manual) APTT D-Dimer ABG pH POC ABG pCO2 POC ABG pO2 ABG Hemoglobin ABG Oxyhemoglobin ABG Sodium ABG Chloride ABG Glucose Carboxyhemoglobin Sodium 150 H Potassium Chloride 112.0 H Carbon Dioxide BUN 36 H Creatinine 0.6 L Glucose 113 H POC Glucose 119 H 110 H Lactic Acid Calcium 7.9 L D Phosphorus Magnesium Ferritin AST ALT Alkaline Phosphatase Lactate Dehydrogenase Troponin T C-Reactive Protein Albumin Triglycerides HDL Cholesterol Arterial Blood Glucose Arterial Blood Ionized Calcium Urine WBC (Auto) Urine Creatinine Salicylates Acetaminophen 06/05/21 06/05/21 06/05/21 09:41 14:01 23:29 WBC 21.2 H RBC 2.83 L Hgb 7.7 L Hct 23.5 L MCV 83 L MCH 27 L MCHC RDW Plt Count Seg Neuts % (Manual) Lymphocytes % (Manual) Seg Neutrophils # Man Lymphocytes # (Manual) Monocytes # (Manual) APTT D-Dimer ABG pH POC ABG pCO2 POC ABG pO2 ABG Hemoglobin ABG Oxyhemoglobin ABG Sodium ABG Chloride ABG Glucose Carboxyhemoglobin Sodium Potassium Chloride Carbon Dioxide BUN Creatinine Glucose POC Glucose 116 H 111 H Lactic Acid Calcium Phosphorus Magnesium Ferritin AST ALT Alkaline Phosphatase Lactate Dehydrogenase Troponin T C-Reactive Protein Albumin Triglycerides HDL Cholesterol Arterial Blood Glucose Arterial Blood Ionized Calcium Urine WBC (Auto) Urine Creatinine Salicylates Acetaminophen 06/06/21 06/06/21 06/06/21 17:40 20:07 20:07 WBC 22.0 H RBC 3.17 L Hgb 8.4 L Hct 26.9 L MCV MCH 26 L MCHC 31 L RDW Plt Count 496 H Seg Neuts % (Manual) Lymphocytes % (Manual) Seg Neutrophils # Man Lymphocytes # (Manual) Monocytes # (Manual) APTT D-Dimer ABG pH POC ABG pCO2 POC ABG pO2 ABG Hemoglobin ABG Oxyhemoglobin ABG Sodium ABG Chloride ABG Glucose Carboxyhemoglobin Sodium 148 H Potassium Chloride 111.6 H Carbon Dioxide BUN 26 H Creatinine 0.6 L Glucose 123 H POC Glucose 106 H Lactic Acid Calcium 7.3 L Phosphorus Magnesium Ferritin AST ALT Alkaline Phosphatase Lactate Dehydrogenase Troponin T C-Reactive Protein Albumin Triglycerides HDL Cholesterol Arterial Blood Glucose Arterial Blood Ionized Calcium Urine WBC (Auto) Urine Creatinine Salicylates Acetaminophen 06/07/21 06/07/21 00:07 05:35 WBC RBC Hgb Hct MCV MCH MCHC RDW Plt Count Seg Neuts % (Manual) Lymphocytes % (Manual) Seg Neutrophils # Man Lymphocytes # (Manual) Monocytes # (Manual) APTT D-Dimer ABG pH POC ABG pCO2 POC ABG pO2 ABG Hemoglobin ABG Oxyhemoglobin ABG Sodium ABG Chloride ABG Glucose Carboxyhemoglobin Sodium Potassium Chloride Carbon Dioxide BUN Creatinine Glucose POC Glucose 126 H 110 H Lactic Acid Calcium Phosphorus Magnesium Ferritin AST ALT Alkaline Phosphatase Lactate Dehydrogenase Troponin T C-Reactive Protein Albumin Triglycerides HDL Cholesterol Arterial Blood Glucose Arterial Blood Ionized Calcium Urine WBC (Auto) Urine Creatinine Salicylates Acetaminophen Chest x-ray: pending Allied health notes reviewed: nursing
[2021-06-07 11:31] LABS: Hematocrit 25.7 % (35.5-45.6); Hemoglobin 8.4 gm/dl (11.8-15.2); Mean Corpuscular HGB Conc 33 % (32-34); Mean Corpuscular Volume 84 fl (84-94); Platelet Count 510 K/mm3 (140-440); Red Blood Count 3.05 M/mm3 (3.65-5.03); Red Cell Distribution Width 14.6 % (13.2-15.2)
[2021-06-07 12:41] LABS: Blood Urea Nitrogen 27 mg/dL (9-20); Calcium 7.7 mg/dL (8.4-10.2); Hemolysis Index 14
[2021-06-07 12:42] LABS: BUN/Creatinine Ratio 54
--- NOTE | 2021-06-07 13:08 | Progress Note ---
<SHERRI ALBERT Doug - Last Filed: 06/07/21 15:59> Assessment and Plan Assessment and plan: This 81-year-old male with hypertension and dementia admitted with acute hypoxic respiratory failure suspected, COVID-19 PUI, pneumonia, hypernatremia, volume depletion, urinary tract infection, toxic metabolic encephalopathy, SIXTO, sepsis Neuro: Acute metabolic encephalopathy Right posterior cerebral artery infarction Frail elderly debility -Aspiration/seizure precautions -05/26 CT head shows no focal mass, hemorrhage, hydrocephalus or acute or large territorial infarct, mild to moderate mucosal thickening in the ethmoid with prior mastoidectomy noted on the right, vascular disease seen in the anterior and posterior circulation, moderate diffuse cerebral atrophy with anterior temporal lobe atrophy being the greatest, moderate to marked degree of hippocampal atrophy suggested bilaterally, suggestion of encephalomalacia in the inferior temporal lobe on the right as well as anterior temporal lobe with question prior branch infarct or trauma -Neurology consulted -06/03 EEG shows diffuse background slowing in 3-4 Hz noted throughout the methacholine, no focal slowing, no epileptiform discharge appreciated, findings suggestive of encephalopathic center toxic metabolic, drug effect, and/or anoxic, clinical correlation is in order -06/03 MRI brain shows large recent right posterior cerebral artery infarction with evidence of cortical laminar necrosis, probably mobile atrophy with apparent focal atrophy involving the right temporal lobe -06/03 echocardiogram shows normal echocardiogram, LV normal size, normal LV wall thickness, LVEF 60-75 %, mild diastolic dysfunction present, mild to moderate calcification of the noncoronary cusp noted, mild aortic stenosis, mild AR, IVC is normal in size and collapses greater than 50% with inspiration, saline bubble contrast intravenous injection does not demonstrate PFO -06/03 CTA neck/head pending -neurology following -ST/PT/OT consulted, patient is currently vented -exam- PERLL, non commands, pos cough/gag CV: elevated trop on admit likey due to SIXTO Hypertension -05/26 CT chest/abdomen/pelvis without contrast dense atherosclerotic calcification of the thoracic aorta distribution of the coronary vessels, scattered patchy ill-defined densities within the mid and lower lung zone, mild prominence of both ureters, dense atherosclerotic calcification along the abdominal aorta without evidence of aneurysm -Amlodipine -Hydralazine as needed -Blood pressure monitoring per protocol -asa/statin -05/26 lipid panel: Triglycerides 150, cholesterol 145, LDL 84, HDL 24 -SR Respiratory: Acute hypoxemic respiratory failure requiring trach -On mechanical ventilation -Wean mechanical ventilation as tolerated -VAP bundle -ABGs as needed -Daily SBT as tolerated -trach -18 -trach care per RN -minimal secretions -PRN nebs GI: Protein calorie malnutrition -Nutrition consulted, patient recommendations -sp PEG yesterday -resuming TF Hypernatremia/hypochloremia -Nursing instructed on free water flush orders for hyponatremia per nutrition pepcid for GI prophylaxis : Acute kidney injury/ATN, resolved -Presented with BUN/creatinine of 118/5.4 -Nephrology consulted- signed off -Strict intake and output -Daily weights -avoid Nephrotoxic medications Urinary Retention- improved -Flomax and proscar -now with condom catheter -monitor for retention: bladder scan if pt does not void within 4 hour time frame hyperNa- improving FWF- follow Na Heme Anemia on admit VTE SQH Hbg stable no bleeding on exam ID leukocytosis/elevated lactate -05/26 CT chest showed faint bilateral patchy pulmonary opacities suggestive of infectious process that is pneumonia -see cultures data- ngtd on recent cultures and no consolidation or infiltrate on xray chest -afebrile -persistent leukocytosis and lacat levels -covid neg on admit -Skin care per nursing staff PLAN- [facility]ING [facility] History Interval history: This 81-year-old male with hypertension and dementia who presents to [facility] ER on 05/26 with decreased responsiveness since 05/25 per family. Patient was placed on nasopharyngeal airway and bagged by EMS on route to [facility]. Upon arrival to emergency indices 05/27/2021. Patient with severe hypernatremia secondary to dehydration/vasomotor nephropathy. Continue IV fluid hydration per nephrology recommendations. Patient with a creatinine September 2019 of 0.7. On this admission patient was noted to have a creatinine of 5.4. Slightly improved today to 4.2. Etiology secondary to vasomotor nephropathy/acute kidney injury/volume depletion/dehydration. Follow-up urine studies. CT scan of the abdomen pelvis did not reveal any obstruction. CT chest revealed bilateral pulmonary opacities. Patient with elevated D-dimer that may be secondary to Covid coagulopathy. Consider VQ scan. Unable to perform CTA given renal insufficiency. Await pulmonary consultation 05/28/2021. Hyponatremia has improved to 159. Continue IV fluid hydration per nephrology recommendations. Creatinine has also improved to 2.9. No obstruction per CT scan. COVID-19 testing negative on 05/27/2021. Continue IV antibiotics for bilateral pneumonia and UTI. Follow-up blood and urine cultures. Consider ID consultation patient remains on mechanical ventilation but undergoing PSV trials. Patient currently with PSV with FiO2 of 30% PEEP of 6 and pressure support of 10. Continue vent weaning per pulmonary. 05/29/2021. Hypernatremia persists with sodium improving to 154 yesterday evening but now back to 159. Creatinine has improved to 2.4. Nephrology following.Continue current antibiotics for pneumonia and UTI. Consider CTA of chest for elevated D-dimer when creatinine back to baseline. Patient currently on AC mode ventilation rate of 16, tidal volume 450, FiO2 30% and PEEP of 6. 05/30/2021. Sodium remains elevated at 162 and creatinine elevated at 2.1. Continue free water with 300 mL every 4 hours. Nephrology held IV D5W. Resume IV fluids per nephrology recommendations. CT scan of the abdomen negative for hydronephrosis. Continue IV antibiotics. Patient remains on mechanical ventilation AC mode rate of 20, tidal volume 450, FiO2 40% and a PEEP of 6. 05/31: Patient has hypernatremia improved to 149, this a.m. patient was noted to have a potassium of 4.5 and potassium and his D5 was discontinued and changed to D5W. This evening he was noted the patient had a potassium of 3.4 which was repleted. Patient was started to have hypophosphatemia today which was repleted. Antibiotics were escalated to's ceftriaxone for pansensitive E. coli patient received 7 days of therapy so repeat blood cultures were ordered. 06/01: CPAP trial yesterday lasted from 9am-5pm, will retry CPAP today. Replace Mg, Phos, K, DC IVF in setting of improved Na 06/02: Hypocalcemia today which was corrected. Given neuro status unchanged, Neuro consult requested who ordered MRI B and EEG. CPAP trial. drop in h/h, occult stool, coags, type and screen ordered. remove white, bladder scan and straight cath as needed 06/03: Hypocalcemia again today, started on PO Ca supplements, h/h stable from yesterday, MRI B pending, EEG completed, added proscar re RN needing to p hysically press on bladder for urine. Decrease in BP med. [facility] plans for trial extubation 06/04 MRI showed cerebral infarct, neurology , CCM and Dr. Merrill aware. No acute events reported overnight. CPAP trial this a.m. General surgery consulted for the trach/PEG. Dr. Merrill and Dr. Guo spoke to family at bedside. 06/05: Family at bedside to decide for trach/PEG. Overnight patient had episode of desaturation and his FiO2 was at 100%. Later in the morning was down to 50% patient was satting 100% by [facility]. Patient 06/06: Patient was febrile overnight however his urinalysis and CXR showed no acute abnormality, patient was recultured on 06/04 and does blood cultures have no growth for 24 hours. Patient is scheduled for trach/PEG with Dr. Guo. Patient continues to have leukocytosis and spite of completing ABX. 06-07 no acute events overnight Disposition Plan: LTAC Total Time Spent with Patient (Minutes): 60 History Interval history: [facility] overnight Hospitalist Physical - Constitutional Vitals: Temp Pulse Resp BP Pulse Ox 98.1 F 77 24 142/64 100 06/07/21 11:49 06/07/21 12:09 06/07/21 12:09 06/07/21 12:09 06/07/21 12:09 General appearance: Present: no acute distress, other (no commands) - EENT Eyes: Present: PERRL - Neck Neck: Present: supple - Respiratory Respiratory effort: normal - Cardiovascular Rhythm: regular Heart Sounds: Present: S1 & S2 - Extremities Extremities: no ischemia Peripheral Pulses: within normal limits - Abdominal General gastrointestinal: soft - Integumentary Integumentary: Present: clear, warm, dry - Neurologic Neurologic: other - Allied Health Allied health notes reviewed: nursing, social work, case management HEART Score - HEART Score Troponin: Troponin T 0.038 ng/mL (0.00-0.029) H 05/26/21 17:08 Results - Labs CBC & Chem 7: 06/07/21 11:09 06/07/21 11:09 Labs: Laboratory Last Values WBC 21.8 K/mm3 (4.5-11.0) H 06/07/21 11:09 RBC 3.05 M/mm3 (3.65-5.03) L 06/07/21 11:09 Hgb 8.4 gm/dl (11.8-15.2) L 06/07/21 11:09 Hct 25.7 % (35.5-45.6) L 06/07/21 11:09 MCV 84 fl (84-94) 06/07/21 11:09 MCH 27 pg (28-32) L 06/07/21 11:09 MCHC 33 % (32-34) 06/07/21 11:09 RDW 14.6 % (13.2-15.2) 06/07/21 11:09 Plt Count 510 K/mm3 (140-440) H 06/07/21 11:09 Lymph % (Auto) 30.3 % (13.4-35.0) 05/26/21 17:08 [place] % (Auto) 6.1 % (0.0-7.3) 05/26/21 17:08 Eos % (Auto) 1.0 % (0.0-4.3) 05/26/21 17:08 Baso % (Auto) 0.5 % (0.0-1.8) 05/26/21 17:08 Lymph # (Auto) 3.0 K/mm3 (1.2-5.4) 05/26/21 17:08 [place] # (Auto) 0.6 K/mm3 (0.0-0.8) 05/26/21 17:08 Eos # (Auto) 0.1 K/mm3 (0.0-0.4) 05/26/21 17:08 Baso # (Auto) 0.1 K/mm3 (0.0-0.1) 05/26/21 17:08 Add Manual Diff Complete 05/27/21 02:00 Total Counted 100 05/27/21 02:00 Seg Neutrophils % Montessori Toddler Teacher 05/27/21 02:00 Seg Neuts % (Manual) 93.0 % (40.0-70.0) H 05/27/21 02:00 Lymphocytes % (Manual) 3.0 % (13.4-35.0) L 05/27/21 02:00 Monocytes % (Manual) 4.0 % (0.0-7.3) 05/27/21 02:00 Nucleated RBC % Not Reportable 05/27/21 02:00 Seg Neutrophils # 6.1 K/mm3 (1.8-7.7) 05/26/21 17:08 Seg Neutrophils # Man 25.2 K/mm3 (1.8-7.7) H 05/27/21 02:00 Band Neutrophils # 0.0 K/mm3 05/27/21 02:00 Lymphocytes # (Manual) 0.8 K/mm3 (1.2-5.4) L 05/27/21 02:00 Abs React Lymphs (Man) 0.0 K/mm3 05/27/21 02:00 Monocytes # (Manual) 1.1 K/mm3 (0.0-0.8) H 05/27/21 02:00 Eosinophils # (Manual) 0.0 K/mm3 (0.0-0.4) 05/27/21 02:00 Basophils # (Manual) 0.0 K/mm3 (0.0-0.1) 05/27/21 02:00 Metamyelocytes # 0.0 K/mm3 05/27/21 02:00 Myelocytes # 0.0 K/mm3 05/27/21 02:00 Promyelocytes # 0.0 K/mm3 05/27/21 02:00 Blast Cells # 0.0 K/mm3 05/27/21 02:00 WBC Morphology Not Reportable 05/27/21 02:00 Hypersegmented Neuts Not Reportable 05/27/21 02:00 Hyposegmented Neuts Not Reportable 05/27/21 02:00 Hypogranular Neuts Not Reportable 05/27/21 02:00 Smudge Cells Not Reportable 05/27/21 02:00 Toxic Granulation Not Reportable 05/27/21 02:00 Toxic Vacuolation Not Reportable 05/27/21 02:00 Dohle Bodies Not Reportable 05/27/21 02:00 Pelger-Huet Anomaly Not Reportable 05/27/21 02:00 Daniel Rods Not Reportable 05/27/21 02:00 Platelet Estimate Not Reportable 05/27/21 02:00 Clumped Platelets Not Reportable 05/27/21 02:00 Plt Clumps, EDTA Not Reportable 05/27/21 02:00 Large Platelets Not Reportable 05/27/21 02:00 Giant Platelets Not Reportable 05/27/21 02:00 Platelet Satelliting Not Reportable 05/27/21 02:00 Plt Morphology Comment Not Reportable 05/27/21 02:00 RBC Morphology Normal 05/27/21 02:00 Dimorphic RBCs Not Reportable 05/27/21 02:00 Polychromasia Not Reportable 05/27/21 02:00 Hypochromasia Not Reportable 05/27/21 02:00 Poikilocytosis Not Reportable 05/27/21 02:00 Anisocytosis Not Reportable 05/27/21 02:00 Microcytosis Not Reportable 05/27/21 02:00 Macrocytosis Not Reportable 05/27/21 02:00 Spherocytes Not Reportable 05/27/21 02:00 Pappenheimer Bodies Not Reportable 05/27/21 02:00 Sickle Cells Not Reportable 05/27/21 02:00 Target Cells Not Reportable 05/27/21 02:00 Tear Drop Cells Not Reportable 05/27/21 02:00 Ovalocytes Not Reportable 05/27/21 02:00 Helmet Cells Not Reportable 05/27/21 02:00 Huert[place]-Wilder Bodies Not Reportable 05/27/21 02:00 [place] Rings Not Reportable 05/27/21 02:00 [place] Cells Not Reportable 05/27/21 02:00 Bite Cells Not Reportable 05/27/21 02:00 Crenated Cell Not Reportable 05/27/21 02:00 Elliptocytes Not Reportable 05/27/21 02:00 Acanthocytes (Spur) Not Reportable 05/27/21 02:00 Rouleaux Not Reportable 05/27/21 02:00 Hemoglobin C Crystals Not Reportable 05/27/21 02:00 Schistocytes Not Reportable 05/27/21 02:00 Malaria parasites Not Reportable 05/27/21 02:00 Arik Bodies Not Reportable 05/27/21 02:00 Hem Pathologist Commnt No 05/27/21 02:00 PT 13.5 Sec. (12.2-14.9) 06/06/21 20:07 INR 0.98 (0.87-1.13) 06/06/21 20:07 APTT 42.4 Sec. (24.2-36.6) H 05/26/21 17:08 D-Dimer 8255.81 ng/mlDDU (0-234) H 05/26/21 17:08 ABG pH 7.555 (7.320-7.450) H 06/01/21 04:00 POC ABG pCO2 27.6 mmHg (32.0-48.0) L 06/01/21 04:00 POC ABG pO2 65.6 mmHg (83-108) L 06/01/21 04:00 POC ABG HCO3 23.9 06/01/21 04:00 ABG O2 Saturation 94.5 (0-100) 06/01/21 04:00 POC ABG Base Excess 2.0 06/01/21 04:00 ABG Hemoglobin 9.2 (12.0-17.5) L 06/01/21 04:00 ABG Oxyhemoglobin 94.1 (94-98) 06/01/21 04:00 ABG Methemoglobin 0.3 (0.0-1.5) 06/01/21 04:00 ABG Sodium 137.4 mmol/L (136.0-145.0) 06/01/21 04:00 ABG Potassium 3.5 mmol/L (3.40-4.50) 06/01/21 04:00 ABG Chloride 111.0 mmol/L (98-107) H 06/01/21 04:00 ABG Glucose 143 mg/dL (65-95) H 06/01/21 04:00 Carboxyhemoglobin 0.1 (0.5-1.5) L 06/01/21 04:00 FiO2 % 40.0 06/01/21 04:00 Sodium 147 mmol/L (137-145) H 06/07/21 11:09 Potassium 4.2 mmol/L (3.6-5.0) 06/07/21 11:09 Chloride 112.2 mmol/L (98-107) H 06/07/21 11:09 Carbon Dioxide 27 mmol/L (22-30) 06/07/21 11:09 Anion Gap 12 mmol/L 06/07/21 11:09 BUN 27 mg/dL (9-20) H 06/07/21 11:09 Creatinine 0.5 mg/dL (0.8-1.3) L 06/07/21 11:09 Estimated GFR > 60 ml/min 06/07/21 11:09 BUN/Creatinine Ratio 54 % 06/07/21 11:09 Glucose 106 mg/dL (75-100) H 06/07/21 11:09 POC Glucose 108 mg/dL (70-105) H 06/07/21 11:41 Lactic Acid 1.60 mmol/L (0.7-2.0) 05/27/21 12:08 Calcium 7.7 mg/dL (8.4-10.2) L 06/07/21 11:09 Phosphorus 2.50 mg/dL (2.5-4.5) 06/03/21 06:20 Magnesium 2.10 mg/dL (1.7-2.3) 06/02/21 05:24 Ferritin 598.3 ng/mL (30.0-300.0) H 05/26/21 17:08 Total Bilirubin 0.50 mg/dL (0.1-1.2) 05/27/21 02:00 AST 66 units/L (5-40) H 05/27/21 02:00 ALT 64 units/L (7-56) H 05/27/21 02:00 Alkaline Phosphatase 126 units/L (35-129) 05/27/21 02:00 Ammonia 46.0 umol/L (25-60) 05/26/21 17:08 Lactate Dehydrogenase 550 units/L (91-180) H 05/26/21 17:08 Troponin T 0.038 ng/mL (0.00-0.029) H 05/26/21 17:08 C-Reactive Protein 4.20 mg/dL (0.00-1.30) H 05/26/21 17:08 Total Protein 6.6 g/dL (6.3-8.2) 05/27/21 02:00 Albumin 2.9 g/dL (3.9-5) L 05/27/21 02:00 Albumin/Globulin Ratio 0.8 % 05/27/21 02:00 Triglycerides 150 mg/dL (2-149) H 05/26/21 17:08 Cholesterol 145 mg/dL (50-199) 05/26/21 17:08 LDL Cholesterol Direct 84 mg/dL (50-130) 05/26/21 17:08 HDL Cholesterol 24 mg/dL (40-59) L 05/26/21 17:08 Cholesterol/HDL Ratio 6.04 % 05/26/21 17:08 Procalcitonin 0.29 ng/mL (<0.15) 05/26/21 17:08 TSH 0.342 mlU/mL (0.270-4.200) 05/26/21 17:08 Arterial Blood Glucose 143 mg/dL (65-95) H 06/01/21 04:00 Arterial Blood Ionized Calcium 3.7 mg/dL (4.6-5.3) L 06/01/21 04:00 Urine Color Yellow (Yellow) 06/06/21 Unknown Urine Turbidity Slightly-cloudy (Clear) 06/06/21 Unknown Urine pH 7.0 (5.0-7.0) 06/06/21 Unknown Ur Specific [place] 1.013 (1.003-1.030) 06/06/21 Unknown Urine Protein <15 mg/dl mg/dL (Negative) 06/06/21 Unknown Urine Glucose (UA) Neg mg/dL (Negative) 06/06/21 Unknown Urine Ketones Neg mg/dL (Negative) 06/06/21 Unknown Urine Blood Sm (Negative) 06/06/21 Unknown Urine Nitrite Neg (Negative) 06/06/21 Unknown Urine Bilirubin Neg (Negative) 06/06/21 Unknown Urine Urobilinogen < 2.0 mg/dL (<2.0) 06/06/21 Unknown Ur Leukocyte Esterase Neg (Negative) 06/06/21 Unknown Urine WBC (Auto) < 1.0 /HPF (0.0-6.0) 06/06/21 Unknown Urine RBC (Auto) 4.0 /HPF (0.0-6.0) 06/06/21 Unknown U Epithel Cells (Auto) 2.0 /HPF (0-13.0) 06/06/21 Unknown Urine Bacteria (Auto) 1+ /HPF (Negative) 05/26/21 Unknown Urine Mucus Few /HPF 06/06/21 Unknown Urine Yeast (Budding) 3+ /HPF 06/06/21 Unknown Urine Osmolality 392 Mosm/kg 05/26/21 Unknown Urine Creatinine 51.6 mg/dL (0.1-20.0) H 05/26/21 Unknown Urine Sodium 96 mmol/L 05/26/21 Unknown Random Vancomycin 14.8 ug/mL (0-40.0) 05/30/21 08:29 Salicylates < 0.3 mg/dL (2.8-20.0) L 05/26/21 17:08 Acetaminophen < 5.0 ug/mL (10.0-30.0) L 05/26/21 17:08 Coronavirus (PCR) Negative (Negative) 05/27/21 Unknown Blood Type O POSITIVE 06/02/21 16:57 Antibody Screen Negative 06/02/21 16:57 Microbiology: Microbiology 06/04/21 09:56 Peripheral/Venous Blood Culture - Preliminary NO GROWTH AFTER 72 HOURS 06/04/21 15:59 Peripheral/Venous Blood Culture - Preliminary NO GROWTH AFTER 48 HOURS - Imaging and Cardiology Chest x-ray: other (- nap) CT scan - chest: other (05-26 patchy infiltrate- see report ) MRI - head: other (06-06 SEE REPORT) Imaging and Cardiology: echo 06-06 normal biV function White/IV: Voiding Method Condom Catheter Active Medications - Current Medications Current Medications: Generic Name Dose Route Start Last Admin Trade Name Freq PRN Reason Stop Dose Admin Acetaminophen 650 mg 05/30/21 08:30 06/06/21 05:02 Acetaminophen 325 Mg/10.15 Ml Oral Liqd Unit Dose FEEDTUBE 650 mg Q6H PRN Administration Pain 1 -3, fever >100.5 Albuterol 2.5 mg 05/26/21 18:34 Albuterol 2.5 Mg/3 Ml Nebu IH Q3HRT PRN Shortness Of Breath Amlodipine Besylate 5 mg 06/03/21 10:00 06/07/21 09:54 Amlodipine 5 Mg Tab PO 5 mg QDAY ONDINA Administration Lipase/Protease/Amylase 1 each 05/28/21 08:24 06/06/21 05:10 Lipase 10,500/Protease 25,000/Amylase 43,750 (Units) Dr De Leon FEEDTUBE 1 each PRN PRN Administration For Clogged Feeding Tube Aspirin 325 mg 06/07/21 10:00 06/07/21 09:53 Aspirin 325 Mg Tab PO 325 mg QDAY ONDINA Administration Atorvastatin Calcium 40 mg 06/03/21 22:00 06/06/21 22:10 Atorvastatin 40 Mg Tab PO 40 mg QHS ONDINA Administration Famotidine 20 mg 05/28/21 10:00 06/07/21 09:54 Famotidine 20 Mg Tab PO 20 mg DAILY ONDINA Administration Finasteride 5 mg 06/03/21 10:00 06/07/21 09:54 Finasteride 5 Mg Tab PO 5 mg QDAY ONDINA Administration Heparin Sodium (Porcine) 5,000 unit 05/26/21 22:00 06/07/21 09:55 Heparin 5,000 Unit/1 Ml Vial SUB-Q 5,000 unit Q12HR ONDINA Administration Hydrophilic Ointment 1 applic 05/26/21 17:02 Lip Therapy Vaseline TP Q2HR PRN Dry Lips Multi-Ingred Cream/Lotion/Oil/Oint 1 applic 05/26/21 17:02 Mineral Oil/Petrolatum, White Ophth Oint 3.5 Gm OU Q4HR PRN Dry Eye(s) Senna/Docusate Sodium 1 tab 05/26/21 22:00 06/07/21 09:54 Sennosides/Docusate Sodium 8.6/50 Mg Tab FEEDTUBE 1 tab BID ONDINA Administration Simple Syrup 15 ml 05/28/21 08:24 Simple Syrup 15 Ml FEEDTUBE PRN PRN Hypoglycemia Simple Syrup 30 ml 05/28/21 08:24 Simple Syrup 15 Ml FEEDTUBE PRN PRN Hypoglycemia Sodium Bicarbonate 325 mg 05/28/21 08:24 06/06/21 05:10 Sodium Bicarbonate 325 Mg Tab FEEDTUBE 325 mg PRN PRN Administration For Clogged Feeding Tube Sodium Chloride 10 ml 05/26/21 22:00 06/07/21 09:55 Sodium Chloride 0.9% 10 Ml Flush Syringe IV 10 ml BID ONDINA Administration Sodium Chloride 10 ml 05/26/21 18:34 Sodium Chloride 0.9% 10 Ml Flush Syringe IV PRN PRN LINE FLUSH Tamsulosin HCl 0.8 mg 05/29/21 12:00 06/07/21 09:53 Tamsulosin 0.4 Mg Cap PO 0.8 mg QDAY ONDINA Administration Nutrition/Malnutrition Assess - Dietary Evaluation Nutrition/Malnutrition Findings: Nutrition Notes Start: 05/27/21 08:35 Freq: Status: Active Protocol: Document 06/04/21 10:42 (Rec: 06/04/21 10:43 [id number]) Nutrition Notes Initial or Follow up Reassessment Current Diagnosis Acute Kidney Injury,Sepsis, Hypertension,Respiratory Failure Other Pertinent Diagnosis UTI, encephalopathy, dehydration, COVID PUI Current Diet Glucerna 1.2 at 45 ml/hr Labs/Tests 06/03: Ca 6.8 Pertinent Medications Calcium carbonate Height 5 ft 2 in Weight 45.359 kg [place] Body Weight (kg) 53.63 BMI 18.3 Weight Status Underweight Subjective/Other Information FU for TF tolerance. Pt tolerating TF at goal rate. Pt had BM yesterday. Percent of energy/protein needs met: 100%/100% Burn Absent Trauma Absent Current % PO Negligible Minimum of two criteria No physical signs of malnutrition #1 Nutrition Diagnosis Inadequate oral intake Diagnosis Progress(for reassessment Continues documentation) Is patient on ventilator? Yes Is Patient Ambulatory and/or Out of Bed No REE-(Van Meter-St. Jeor-confined to bed) 1258.548 Calculation Used for Recommendations Van Meter-St Jeor Additional Notes Protein: (1.2-2g/kg) 54-91g Fluid: 1 ml/kcal or per MD Nutrition Intervention Change Diet Order: Continue Nutrition Support: Glucerna 1.2 at 45 ml/hr Flush 75 ml q4h. Kcal 1,296 Protein (gm) 65 Fluid (mL) 869 Goal #1 Meet at least 75% of protein and energy needs via TF Anticipated Discharge Needs: Unable to determine at this time Follow-Up By: 06/11/21 Additional Comments FU for TF tolerance - Attestation Statement I have reviewed and agreed w/ Malnutrition eval & tx plan: Yes <JASWINDER MERRILL - Last Filed: 06/07/21 17:08> Assessment and Plan Assessment and plan: Agree assessment plan as outlined above. Patient to go to LTAC. Family is aware, case management setting up transportation. Hospitalist Physical - Constitutional Vitals: Temp Pulse Resp BP Pulse Ox 97.9 F 77 23 123/53 100 06/07/21 16:00 06/07/21 16:01 06/07/21 16:01 06/07/21 16:01 06/07/21 16:01 HEART Score - HEART Score Troponin: Troponin T 0.038 ng/mL (0.00-0.029) H 05/26/21 17:08 Results - Labs CBC & Chem 7: 06/07/21 11:09 06/07/21 11:09 Labs: Laboratory Last Values WBC 21.8 K/mm3 (4.5-11.0) H 06/07/21 11:09 RBC 3.05 M/mm3 (3.65-5.03) L 06/07/21 11:09 Hgb 8.4 gm/dl (11.8-15.2) L 06/07/21 11:09 Hct 25.7 % (35.5-45.6) L 06/07/21 11:09 MCV 84 fl (84-94) 06/07/21 11:09 MCH 27 pg (28-32) L 06/07/21 11:09 MCHC 33 % (32-34) 06/07/21 11:09 RDW 14.6 % (13.2-15.2) 06/07/21 11:09 Plt Count 510 K/mm3 (140-440) H 06/07/21 11:09 Lymph % (Auto) 30.3 % (13.4-35.0) 05/26/21 17:08 [place] % (Auto) 6.1 % (0.0-7.3) 05/26/21 17:08 Eos % (Auto) 1.0 % (0.0-4.3) 05/26/21 17:08 Baso % (Auto) 0.5 % (0.0-1.8) 05/26/21 17:08 Lymph # (Auto) 3.0 K/mm3 (1.2-5.4) 05/26/21 17:08 [place] # (Auto) 0.6 K/mm3 (0.0-0.8) 05/26/21 17:08 Eos # (Auto) 0.1 K/mm3 (0.0-0.4) 05/26/21 17:08 Baso # (Auto) 0.1 K/mm3 (0.0-0.1) 05/26/21 17:08 Add Manual Diff Complete 05/27/21 02:00 Total Counted 100 05/27/21 02:00 Seg Neutrophils % Montessori Toddler Teacher 05/27/21 02:00 Seg Neuts % (Manual) 93.0 % (40.0-70.0) H 05/27/21 02:00 Lymphocytes % (Manual) 3.0 % (13.4-35.0) L 05/27/21 02:00 Monocytes % (Manual) 4.0 % (0.0-7.3) 05/27/21 02:00 Nucleated RBC % Not Reportable 05/27/21 02:00 Seg Neutrophils # 6.1 K/mm3 (1.8-7.7) 05/26/21 17:08 Seg Neutrophils # Man 25.2 K/mm3 (1.8-7.7) H 05/27/21 02:00 Band Neutrophils # 0.0 K/mm3 05/27/21 02:00 Lymphocytes # (Manual) 0.8 K/mm3 (1.2-5.4) L 05/27/21 02:00 Abs React Lymphs (Man) 0.0 K/mm3 05/27/21 02:00 Monocytes # (Manual) 1.1 K/mm3 (0.0-0.8) H 05/27/21 02:00 Eosinophils # (Manual) 0.0 K/mm3 (0.0-0.4) 05/27/21 02:00 Basophils # (Manual) 0.0 K/mm3 (0.0-0.1) 05/27/21 02:00 Metamyelocytes # 0.0 K/mm3 05/27/21 02:00 Myelocytes # 0.0 K/mm3 05/27/21 02:00 Promyelocytes # 0.0 K/mm3 05/27/21 02:00 Blast Cells # 0.0 K/mm3 05/27/21 02:00 WBC Morphology Not Reportable 05/27/21 02:00 Hypersegmented Neuts Not Reportable 05/27/21 02:00 Hyposegmented Neuts Not Reportable 05/27/21 02:00 Hypogranular Neuts Not Reportable 05/27/21 02:00 Smudge Cells Not Reportable 05/27/21 02:00 Toxic Granulation Not Reportable 05/27/21 02:00 Toxic Vacuolation Not Reportable 05/27/21 02:00 Dohle Bodies Not Reportable 05/27/21 02:00 Pelger-Huet Anomaly Not Reportable 05/27/21 02:00 Daniel Rods Not Reportable 05/27/21 02:00 Platelet Estimate Not Reportable 05/27/21 02:00 Clumped Platelets Not Reportable 05/27/21 02:00 Plt Clumps, EDTA Not Reportable 05/27/21 02:00 Large Platelets Not Reportable 05/27/21 02:00 Giant Platelets Not Reportable 05/27/21 02:00 Platelet Satelliting Not Reportable 05/27/21 02:00 Plt Morphology Comment Not Reportable 05/27/21 02:00 RBC Morphology Normal 05/27/21 02:00 Dimorphic RBCs Not Reportable 05/27/21 02:00 Polychromasia Not Reportable 05/27/21 02:00 Hypochromasia Not Reportable 05/27/21 02:00 Poikilocytosis Not Reportable 05/27/21 02:00 Anisocytosis Not Reportable 05/27/21 02:00 Microcytosis Not Reportable 05/27/21 02:00 Macrocytosis Not Reportable 05/27/21 02:00 Spherocytes Not Reportable 05/27/21 02:00 Pappenheimer Bodies Not Reportable 05/27/21 02:00 Sickle Cells Not Reportable 05/27/21 02:00 Target Cells Not Reportable 05/27/21 02:00 Tear Drop Cells Not Reportable 05/27/21 02:00 Ovalocytes Not Reportable 05/27/21 02:00 Helmet Cells Not Reportable 05/27/21 02:00 [place] Bodies Not Reportable 05/27/21 02:00 [place] Rings Not Reportable 05/27/21 02:00 Bernard Cells Not Reportable 05/27/21 02:00 Bite Cells Not Reportable 05/27/21 02:00 Crenated Cell Not Reportable 05/27/21 02:00 Elliptocytes Not Reportable 05/27/21 02:00 Acanthocytes (Spur) Not Reportable 05/27/21 02:00 Rouleaux Not Reportable 05/27/21 02:00 Hemoglobin C Crystals Not Reportable 05/27/21 02:00 Schistocytes Not Reportable 05/27/21 02:00 Malaria parasites Not Reportable 05/27/21 02:00 Arik Bodies Not Reportable 05/27/21 02:00 Hem Pathologist Commnt No 05/27/21 02:00 PT 13.5 Sec. (12.2-14.9) 06/06/21 20:07 INR 0.98 (0.87-1.13) 06/06/21 20:07 APTT 42.4 Sec. (24.2-36.6) H 05/26/21 17:08 D-Dimer 8255.81 ng/mlDDU (0-234) H 05/26/21 17:08 ABG pH 7.555 (7.320-7.450) H 06/01/21 04:00 POC ABG pCO2 27.6 mmHg (32.0-48.0) L 06/01/21 04:00 POC ABG pO2 65.6 mmHg (83-108) L 06/01/21 04:00 POC ABG HCO3 23.9 06/01/21 04:00 ABG O2 Saturation 94.5 (0-100) 06/01/21 04:00 POC ABG Base Excess 2.0 06/01/21 04:00 ABG Hemoglobin 9.2 (12.0-17.5) L 06/01/21 04:00 ABG Oxyhemoglobin 94.1 (94-98) 06/01/21 04:00 ABG Methemoglobin 0.3 (0.0-1.5) 06/01/21 04:00 ABG Sodium 137.4 mmol/L (136.0-145.0) 06/01/21 04:00 ABG Potassium 3.5 mmol/L (3.40-4.50) 06/01/21 04:00 ABG Chloride 111.0 mmol/L (98-107) H 06/01/21 04:00 ABG Glucose 143 mg/dL (65-95) H 06/01/21 04:00 Carboxyhemoglobin 0.1 (0.5-1.5) L 06/01/21 04:00 FiO2 % 40.0 06/01/21 04:00 Sodium 147 mmol/L (137-145) H 06/07/21 11:09 Potassium 4.2 mmol/L (3.6-5.0) 06/07/21 11:09 Chloride 112.2 mmol/L (98-107) H 06/07/21 11:09 Carbon Dioxide 27 mmol/L (22-30) 06/07/21 11:09 Anion Gap 12 mmol/L 06/07/21 11:09 BUN 27 mg/dL (9-20) H 06/07/21 11:09 Creatinine 0.5 mg/dL (0.8-1.3) L 06/07/21 11:09 Estimated GFR > 60 ml/min 06/07/21 11:09 BUN/Creatinine Ratio 54 % 06/07/21 11:09 Glucose 106 mg/dL (75-100) H 06/07/21 11:09 POC Glucose 108 mg/dL (70-105) H 06/07/21 11:41 Lactic Acid 1.60 mmol/L (0.7-2.0) 05/27/21 12:08 Calcium 7.7 mg/dL (8.4-10.2) L 06/07/21 11:09 Phosphorus 2.50 mg/dL (2.5-4.5) 06/03/21 06:20 Magnesium 2.10 mg/dL (1.7-2.3) 06/02/21 05:24 Ferritin 598.3 ng/mL (30.0-300.0) H 05/26/21 17:08 Total Bilirubin 0.50 mg/dL (0.1-1.2) 05/27/21 02:00 AST 66 units/L (5-40) H 05/27/21 02:00 ALT 64 units/L (7-56) H 05/27/21 02:00 Alkaline Phosphatase 126 units/L (35-129) 05/27/21 02:00 Ammonia 46.0 umol/L (25-60) 05/26/21 17:08 Lactate Dehydrogenase 550 units/L (91-180) H 05/26/21 17:08 Troponin T 0.038 ng/mL (0.00-0.029) H 05/26/21 17:08 C-Reactive Protein 4.20 mg/dL (0.00-1.30) H 05/26/21 17:08 Total Protein 6.6 g/dL (6.3-8.2) 05/27/21 02:00 Albumin 2.9 g/dL (3.9-5) L 05/27/21 02:00 Albumin/Globulin Ratio 0.8 % 05/27/21 02:00 Triglycerides 150 mg/dL (2-149) H 05/26/21 17:08 Cholesterol 145 mg/dL (50-199) 05/26/21 17:08 LDL Cholesterol Direct 84 mg/dL (50-130) 05/26/21 17:08 HDL Cholesterol 24 mg/dL (40-59) L 05/26/21 17:08 Cholesterol/HDL Ratio 6.04 % 05/26/21 17:08 Procalcitonin 0.29 ng/mL (<0.15) 05/26/21 17:08 TSH 0.342 mlU/mL (0.270-4.200) 05/26/21 17:08 Arterial Blood Glucose 143 mg/dL (65-95) H 06/01/21 04:00 Arterial Blood Ionized Calcium 3.7 mg/dL (4.6-5.3) L 06/01/21 04:00 Urine Color Yellow (Yellow) 06/06/21 Unknown Urine Turbidity Slightly-cloudy (Clear) 06/06/21 Unknown Urine pH 7.0 (5.0-7.0) 06/06/21 Unknown Ur Specific [place] 1.013 (1.003-1.030) 06/06/21 Unknown Urine Protein <15 mg/dl mg/dL (Negative) 06/06/21 Unknown Urine Glucose (UA) Neg mg/dL (Negative) 06/06/21 Unknown Urine Ketones Neg mg/dL (Negative) 06/06/21 Unknown Urine Blood Sm (Negative) 06/06/21 Unknown Urine Nitrite Neg (Negative) 06/06/21 Unknown Urine Bilirubin Neg (Negative) 06/06/21 Unknown Urine Urobilinogen < 2.0 mg/dL (<2.0) 06/06/21 Unknown Ur Leukocyte Esterase Neg (Negative) 06/06/21 Unknown Urine WBC (Auto) < 1.0 /HPF (0.0-6.0) 06/06/21 Unknown Urine RBC (Auto) 4.0 /HPF (0.0-6.0) 06/06/21 Unknown U Epithel Cells (Auto) 2.0 /HPF (0-13.0) 06/06/21 Unknown Urine Bacteria (Auto) 1+ /HPF (Negative) 05/26/21 Unknown Urine Mucus Few /HPF 06/06/21 Unknown Urine Yeast (Budding) 3+ /HPF 06/06/21 Unknown Urine Osmolality 392 Mosm/kg 05/26/21 Unknown Urine Creatinine 51.6 mg/dL (0.1-20.0) H 05/26/21 Unknown Urine Sodium 96 mmol/L 05/26/21 Unknown Random Vancomycin 14.8 ug/mL (0-40.0) 05/30/21 08:29 Salicylates < 0.3 mg/dL (2.8-20.0) L 05/26/21 17:08 Acetaminophen < 5.0 ug/mL (10.0-30.0) L 05/26/21 17:08 Coronavirus (PCR) Negative (Negative) 05/27/21 Unknown Blood Type O POSITIVE 06/02/21 16:57 Antibody Screen Negative 06/02/21 16:57 Microbiology: Microbiology 06/04/21 09:56 Peripheral/Venous Blood Culture - Preliminary NO GROWTH AFTER 72 HOURS 06/04/21 15:59 Peripheral/Venous Blood Culture - Preliminary NO GROWTH AFTER 48 HOURS White/IV: Voiding Method Condom Catheter Active Medications - Current Medications Current Medications: Generic Name Dose Route Start Last Admin Trade Name Freq PRN Reason Stop Dose Admin Acetaminophen 650 mg 05/30/21 08:30 06/06/21 05:02 Acetaminophen 325 Mg/10.15 Ml Oral Liqd Unit Dose FEEDTUBE 650 mg Q6H PRN Administration Pain 1 -3, fever >100.5 Albuterol 2.5 mg 05/26/21 18:34 Albuterol 2.5 Mg/3 Ml Nebu IH Q3HRT PRN Shortness Of Breath Amlodipine Besylate 5 mg 06/03/21 10:00 06/07/21 09:54 Amlodipine 5 Mg Tab PO 5 mg QDAY ONDINA Administration Lipase/Protease/Amylase 1 each 05/28/21 08:24 06/06/21 05:10 Lipase 10,500/Protease 25,000/Amylase 43,750 (Units) Dr [place] FEEDTUBE 1 each PRN PRN Administration For Clogged Feeding Tube Aspirin 325 mg 06/07/21 10:00 06/07/21 09:53 Aspirin 325 Mg Tab PO 325 mg QDAY ONDINA Administration Atorvastatin Calcium 40 mg 06/03/21 22:00 06/06/21 22:10 Atorvastatin 40 Mg Tab PO 40 mg QHS ONDINA Administration Famotidine 20 mg 05/28/21 10:00 06/07/21 09:54 Famotidine 20 Mg Tab PO 20 mg DAILY ONDINA Administration Finasteride 5 mg 06/03/21 10:00 06/07/21 09:54 Finasteride 5 Mg Tab PO 5 mg QDAY ONDNIA Administration Heparin Sodium (Porcine) 5,000 unit 05/26/21 22:00 07/19/21 09:55 Heparin 5,000 Unit/1 Ml Vial SUB-Q 5,000 unit Q12HR ONDINA Administration Hydrophilic Ointment 1 applic 05/26/21 17:02 Lip Therapy Vaseline TP Q2HR PRN Dry Lips Multi-Ingred Cream/Lotion/Oil/Oint 1 applic 05/26/21 17:02 Mineral Oil/Petrolatum, White Ophth Oint 3.5 Gm OU Q4HR PRN Dry Eye(s) Senna/Docusate Sodium 1 tab 05/26/21 22:00 06/07/21 09:54 Sennosides/Docusate Sodium 8.6/50 Mg Tab FEEDTUBE 1 tab BID ONDINA Administration Simple Syrup 15 ml 05/28/21 08:24 Simple Syrup 15 Ml FEEDTUBE PRN PRN Hypoglycemia Simple Syrup 30 ml 05/28/21 08:24 Simple Syrup 15 Ml FEEDTUBE PRN PRN Hypoglycemia Sodium Bicarbonate 325 mg 05/28/21 08:24 06/06/21 05:10 Sodium Bicarbonate 325 Mg Tab FEEDTUBE 325 mg PRN PRN Administration For Clogged Feeding Tube Sodium Chloride 10 ml 05/26/21 22:00 06/07/21 09:55 Sodium Chloride 0.9% 10 Ml Flush Syringe IV 10 ml BID ONDINA Administration Sodium Chloride 10 ml 05/26/21 18:34 Sodium Chloride 0.9% 10 Ml Flush Syringe IV PRN PRN LINE FLUSH Tamsulosin HCl 0.8 mg 05/29/21 12:00 06/07/21 09:53 Tamsulosin 0.4 Mg Cap PO 0.8 mg QDAY ONDINA Administration Nutrition/Malnutrition Assess - Dietary Evaluation Nutrition/Malnutrition Findings: Nutrition Notes Start: 05/27/21 08:35 Freq: Status: Active Protocol: Document 06/04/21 10:42 MARLEN (Rec: 06/04/21 10:43 MARLEN [id number]) Nutrition Notes Initial or Follow up Reassessment Current Diagnosis Acute Kidney Injury,Sepsis, Hypertension,Respiratory Failure Other Pertinent Diagnosis UTI, encephalopathy, dehydration, COVID PUI Current Diet Glucerna 1.2 at 45 ml/hr Labs/Tests 06/03: Ca 6.8 Pertinent Medications Calcium carbonate Height 5 ft 2 in Weight 45.359 kg [place] Body Weight (kg) 53.63 BMI 18.3 Weight Status Underweight Subjective/Other Information FU for TF tolerance. Pt tolerating TF at goal rate. Pt had BM yesterday. Percent of energy/protein needs met: 100%/100% Burn Absent Trauma Absent Current % PO Negligible Minimum of two criteria No physical signs of malnutrition #1 Nutrition Diagnosis Inadequate oral intake Diagnosis Progress(for reassessment Continues documentation) Is patient on ventilator? Yes Is Patient Ambulatory and/or Out of Bed No REE-([facility]-confined to bed) 1258.548 Calculation Used for Recommendations [facility] Additional Notes Protein: (1.2-2g/kg) 54-91g Fluid: 1 ml/kcal or per MD Nutrition Intervention Change Diet Order: Continue Nutrition Support: Glucerna 1.2 at 45 ml/hr Flush 75 ml q4h. Kcal 1,296 Protein (gm) 65 Fluid (mL) 869 Goal #1 Meet at least 75% of protein and energy needs via TF Anticipated Discharge Needs: Unable to determine at this time Follow-Up By: 06/11/21 Additional Comments FU for TF tolerance
[2021-06-07] MEDS: FREE WATER PO SCH ×2 (14:30→18:30)
--- NOTE | 2021-06-07 15:58 | Discharge Summary ---
Providers - Providers Date of Admission: 05/26/21 18:34 Date of discharge: 06/07/21 Attending physician: JASWINDER LEDEZMA MD 05/26/21 17:02 Consult to Physician [CONS] Stat Comment: Consulting Provider: JUWAN TAY Physician Instructions: Reason For Exam: sepsis resp failure 05/26/21 18:10 Consult to Physician [CONS] Urgent Comment: Consulting Provider: KARTHIKEYAN NATARAJAN Physician Instructions: Reason For Exam: Renal insufficiency, hypernatremia, electrolyte de 05/27/21 17:30 Consult to Dietitian/Nutrition [CONS] Routine Physician Instructions: Reason For Exam: Reason for Consult: Write/Manage Tube Feeding 06/02/21 12:08 Consult to Physician [CONS] Routine Comment: Consulting Provider: BRITANY CROWLEY Physician Instructions: Reason For Exam: encephalopathy 06/03/21 18:45 Occupational Therapy Evaluate and Treat [CONS] Routine Comment: Reason For Exam: Neuro deficits Physical Therapy Evaluation and Treat [CONS] Routine Comment: Reason For Exam: Neuro deficits 06/04/21 15:01 Consult to Physician [CONS] Routine Comment: Consulting Provider: CHRISTOPHER RIVERO Physician Instructions: Reason For Exam: needs Tracheostomy and PEG 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 Patient was placed on nasopharyngeal airway and bagged by EMS on route [facility]. Pt was intubated in the ER and admitted to ICU for ongoing care. Consults: critical care neuro general surgery for trach and peg Unfortunately pt did not regain neuro function. He failed vent weaning and was trached/pegged per family wishes Disposition: [id number] Final Discharge Diagnosis (Prints w/discharge instructions): status post CVA; respiratory failure Time spent for discharge: 30 - Discharge Diagnoses (1) Acute encephalopathy Status: Acute (2) Acute hypoxemic respiratory failure Status: Acute (3) Cerebral infarct Status: Acute Qualifiers: Cerebral infarction mechanism: unspecified mechanism Qualified Code(s): I63.9 - Cerebral infarction, unspecified Core Measure Documentation - Palliative Care Palliative Care/ Comfort Measures: Not Applicable - Core Measures Any of the following diagnoses?: none - VTE Discharge Requirements Deep Vein Thrombosis/Pulmonary Embolism Present on Admission: Yes Has pt received <5 days of overlap therapy or INR<2.0: No Anticoagulant overlap therapy prescribed at discharge: Yes - Acute SC Discharge Requirements Aspirin at discharge: Yes KAYLENE/ARB for LVSD if EF <40%: No Reason for no KAYLENE/ARB: Medical contraindication Beta german at discharge: No Reason for no beta german on DC: Medical contraindication Statin for LDL = or >100 mg/dl on DC: Yes - Heart Failure Discharge Requirements KAYLENE/ARB for LVSD if EF <40%: No Reason for no KAYLENE/ARB: Medical contraindication Beta german at discharge: No Reason for no beta german on DC: Medical contraindication - Stroke Discharge Requirements Statin for LDL = or >70 mg/dl on DC: Yes Anticoag for atrial fib/atrial flutter: Not Applicable Antithrombotic for ischemic stroke: No Reason for no antithrombotic on DC: Medical Contraindication Exam - Constitutional Vitals: Temp Pulse Resp BP Pulse Ox 98.1 F 79 22 141/68 100 06/07/21 11:49 06/07/21 14:00 06/07/21 14:00 06/07/21 14:00 06/07/21 14:00 General appearance: Present: no acute distress - EENT Eyes: Present: PERRL, EOM intact ENT: clear oral mucosa - Neck Neck: Present: supple - Respiratory Respiratory effort: normal - Cardiovascular Heart Sounds: Present: S1 & S2 Peripheral Pulses: within normal limits - Abdominal General gastrointestinal: Present: soft, non-tender Male genitourinary: Present: normal - Integumentary Integumentary: Present: clear, warm, dry - Musculoskeletal Musculoskeletal: generalized weakness - Psychiatric Psychiatric: other - Neurologic Neurologic: other - Allied Health Allied health notes reviewed: nursing, social work, case management Plan Activity: advance as tolerated, other (Peg Tube feedings) Weight Bearing Status: Weight Bear as Tolerated Diet: per dietitian instruction, other Wound: per wound nurse instructions Care Plan Goals: maximize rehab potential Plan of Treatment: Continue continuous tube feeds Glucerna 1.2 at 45 cc/h (goal rate) Health Concerns: advanced age and debility Assessment: Neuro: Acute metabolic encephalopathy Right posterior cerebral artery infarction Frail elderly debility -Aspiration/seizure precautions -05/26 CT head shows no focal mass, hemorrhage, hydrocephalus or acute or large territorial infarct, mild to moderate mucosal thickening in the ethmoid with prior mastoidectomy noted on the right, vascular disease seen in the anterior and posterior circulation, moderate diffuse cerebral atrophy with anterior temporal lobe atrophy being the greatest, moderate to marked degree of hippocampal atrophy suggested bilaterally, suggestion of encephalomalacia in the inferior temporal lobe on the right as well as anterior temporal lobe with question prior branch infarct or trauma -Neurology consulted -06/03 EEG shows diffuse background slowing in 3-4 Hz noted throughout the methacholine, no focal slowing, no epileptiform discharge appreciated, findings suggestive of encephalopathic center toxic metabolic, drug effect, and/or anoxic, clinical correlation is in order -06/03 MRI brain shows large recent right posterior cerebral artery infarction with evidence of cortical laminar necrosis, probably mobile atrophy with apparent focal atrophy involving the right temporal lobe -06/03 echocardiogram shows normal echocardiogram, LV normal size, normal LV wall thickness, LVEF 60-75 %, mild diastolic dysfunction present, mild to moderate calcification of the noncoronary cusp noted, mild aortic stenosis, mild AR, IVC is normal in size and collapses greater than 50% with inspiration, saline bubble contrast intravenous injection does not demonstrate PFO -06/03 CTA neck/head pending -neurology following -ST/PT/OT consulted -exam- PERLL, non commands, pos cough/gag CV: elevated trop on admit likey due to SIXTO Hypertension -05/26 CT chest/abdomen/pelvis without contrast dense atherosclerotic calcification of the thoracic aorta distribution of the coronary vessels, scattered patchy ill-defined densities within the mid and lower lung zone, mild prominence of both ureters, dense atherosclerotic calcification along the abdominal aorta without evidence of aneurysm -Amlodipine -Hydralazine as needed -Blood pressure monitoring per protocol -asa/statin -05/26 lipid panel: Triglycerides 150, cholesterol 145, LDL 84, HDL 24 -SR Respiratory: Acute hypoxemic respiratory failure requiring trach remains on vent -VAP bundle -Daily SBT as tolerated -trach -18 -trach care per RN -minimal secretions -PRN nebs GI: Protein calorie malnutrition -Nutrition following -sp PEG yesterday -resuming TF to goal per nutrition pepcid for GI prophylaxis : Acute kidney injury/ATN, resolved -Presented with BUN/creatinine of 118/5.4 -Nephrology consulted- signed off -Strict intake and output -Daily weights -avoid Nephrotoxic medications Urinary Retention- improved -Flomax and proscar -now with condom catheter -monitor for retention: bladder scan if pt does not void within 4 hour time frame hyperNa- improving FWF- follow Na Heme Anemia on admit VTE SQH Hbg stable no bleeding on exam ID leukocytosis/elevated lactate -05/26 CT chest showed faint bilateral patchy pulmonary opacities suggestive of infectious process that is pneumonia -see cultures data- ngtd on recent cultures and no consolidation or infiltrate on xray chest -afebrile -persistent leukocytosis and lacat levels -covid neg on admit -Skin care per nursing staff Follow up with: PRIMARY MD RYLIE [Primary Care Provider] - 3-5 Days
[2021-06-07 18:05] VITALS: BP 139/60
== END 2021-06-07 20:00 | DRG 4 ==
LOC: ED 16:55 → CC1 18:34
PROVIDERS: ADMIT Internal Medicine; ATTEND Family Medicine
PROC: 4A033R1 Measurement of Arterial Saturation, Peripheral, Percutaneous Approach (ICD-10-PCS; 2021-05-26)
PROC: 3E0234Z Introduction of Serum, Toxoid and Vaccine into Muscle, Percutaneous Approach (ICD-10-PCS; 2021-05-28)
PROC: 5A1955Z Respiratory Ventilation, Greater than 96 Consecutive Hours (ICD-10-PCS; 2021-06-01)
PROC: 0BH17EZ Insertion of Endotracheal Airway into Trachea, Via Natural or Artificial Opening (ICD-10-PCS; 2021-06-01)
PROC: 0B110F4 Bypass Trachea to Cutaneous with Tracheostomy Device, Open Approach (ICD-10-PCS; principal; 2021-06-06)
PROC: 0DH63UZ Insertion of Feeding Device into Stomach, Percutaneous Approach (ICD-10-PCS; 2021-06-06)
DX: A41.9 Sepsis, unspecified organism (principal); G92 Toxic encephalopathy; J18.9 Pneumonia, unspecified organism; R65.21 Severe sepsis with septic shock; J96.01 Acute respiratory failure with hypoxia; I46.9 Cardiac arrest, cause unspecified; N17.0 Acute kidney failure with tubular necrosis; I63.331 Cerebral infarction due to thrombosis of right posterior cerebral artery; E87.0 Hyperosmolality and hypernatremia; N39.0 Urinary tract infection, site not specified; E46 Unspecified protein-calorie malnutrition; Z68.1 Body mass index [BMI] 19.9 or less, adult; Z20.822 Contact with and (suspected) exposure to COVID-19; I25.10 Atherosclerotic heart disease of native coronary artery without angina pectoris; I10 Essential (primary) hypertension; F03.90 Unspecified dementia, unspecified severity, without behavioral disturbance, psychotic disturbance, mood disturbance, and anxiety; D69.6 Thrombocytopenia, unspecified; N28.9 Disorder of kidney and ureter, unspecified; E86.0 Dehydration; E86.9 Volume depletion, unspecified; E87.8 Other disorders of electrolyte and fluid balance, not elsewhere classified; R56.9 Unspecified convulsions; E83.39 Other disorders of phosphorus metabolism; E83.42 Hypomagnesemia; R79.89 Other specified abnormal findings of blood chemistry; I16.0 Hypertensive urgency; E87.6 Hypokalemia; R74.02 Elevation of levels of lactic acid dehydrogenase [LDH]; D64.9 Anemia, unspecified; R33.9 Retention of urine, unspecified; E83.51 Hypocalcemia; R62.7 Adult failure to thrive; Z86.73 Personal history of transient ischemic attack (TIA), and cerebral infarction without residual deficits
CPT/HCPCS: 31500; 36415; 36600; 70450; 70551; 71045; 71250; 74018; 74176; 80048; 80053; 80061; 80202; 80320; 81001; 82140; 82570; 82728; 82803; 82805; 82962; 83615; 83735; 83935; 84100; 84145; 84295; 84300; 84443; 84484; 85007; 85025; 85027; 85379; 85610; 85730; 86140; 86850; 86900; 86901; 87040; 87070; 87076; 87086; 87186; 87205; 93005; 93306; 94002; 94003; 95819; 96361; 96365; 96367; 96375; G0378; A9270-GY; G0480; J0610; J0690; J0692; J0696; J1100; J1644; J2405; J2704; J2920; J3010; J3370; J3475; J3480; J7040; J7050; J7070; J7120; U0003